=== PATIENT | female | born 1975 | race African-American/Black ===

== ENCOUNTER 2016-06-10 10:02 | Inpatient (IN) | payer MEDICARE, OTHER ==
[2016-06-10] VITALS (11 sets, daily range): BP systolic 112–191; BP diastolic 61–139
[~2016-06-10] VITALS: Ht 172.7 cm; Wt 65.8 kg
[~2016-06-10 10:02] MED LIST: ACYCLOVIR400 MG PO; BACTRIM DS TAB1 EAC1 ORAL; BACTRIM-DS1 EA PO; CEPHALEXIN500 MG ORAL; CLEOCIN150 MG PO; CORTISPORIN-TC10 M1 OT; HYDROCODON-ACE1 EAC4 ORAL; IBUPROFEN600 MG PO; KEFLEX500 MG PO; NKM; NORCO 5-325 TA1 EACH PO; VICODIN 5-5001 EACH PO
[2016-06-10] MEDS ORDERED: Metoclopramide 10mg/2ml Inj IVP ONE (10:30)
[2016-06-10] MEDS ORDERED: LORazepam Inj 2mg/ml 1ml IV ONE ×2 (10:30→15:30)
[2016-06-10 10:40] LABS: APPEARANCE,URINE CLOUDY; KETONES,URINE 2+ (NEGATIVE); LEUKOCYTE ESTERASE ,URINE 3+ (NEGATIVE); NITRITE,URINE NEGATIVE (NEGATIVE); PH,URINE 5 (4.5-8.0); PROTEIN,URINE 3+ (NEGATIVE); UROBILINOGEN,URINE NORMAL MG/DL (0.0-1.0)
[2016-06-10] MEDS ORDERED: Morphine Sulfate 4mg/ml Inj IVP ONE (10:45)
[2016-06-10 11:02] LABS: BACTERIA,URINE FEW /HPF; SQUAMOUS EPITHELIAL CELL,UR MODERATE /LPF (NONE/OCC)
[2016-06-10] MEDS ORDERED: HYDROmorphone 2 MG, DiphenhydrAMINE 25 MG in NS 55 ML IVPB ONE (11:15)
[2016-06-10 11:16] LABS: ALANINE AMINOTRANSFERASE 63 U/L (3-33); ALBUMIN/GLOBULIN RATIO 0.6 (1.0-2.7); ANION GAP 33 (5-15); ASPARTATE AMINO TRANSFERASE 90 U/L (5-40); CALCIUM 8.5 mg/dL (8.6-10.2); CARBON DIOXIDE 14 mEQ/L (20-30); CHLORIDE 90 mEQ/L (98-107); CREATININE 0.8 mg/dL (0.5-0.9); GLOMERULAR FILTRATION RATE > 60 mL/min (>60); HEMOLYSIS 7; POTASSIUM 4.3 mEQ/L (3.4-4.9); SODIUM 137 mEQ/L (135-145); TOTAL PROTEIN 8.2 g/dL (6.6-8.7)
[2016-06-10 11:18] LABS: LIPASE 304 U/L (< 60)
[2016-06-10 11:21] LABS: MEAN CORPUSCULAR HEMOGLOBIN 37.6 PG (27.0-31.0); MEAN CORPUSCULAR HGB CONC 31.9 G/DL (32.0-36.0); MEAN CORPUSCULAR VOLUME 118 FL (80-99); MEAN PLATELET VOLUME 5.8 FL (6.5-10.1); PLATELET COUNT 232 K/UL (150-450); RED BLOOD COUNT 2.75 M/UL (4.20-5.40); RED CELL DISTRIBUTION WIDTH 19.7 % (11.6-14.8); WHITE BLOOD COUNT 6.3 K/UL (4.8-10.8)
[2016-06-10] MEDS ORDERED: DiphenhydrAMINE 50mg/ml Inj ONE (11:22)
[2016-06-10 12:09] LABS: REFLEX LACTIC ACID YES OR NO YES
[2016-06-10 12:27] LABS: BAND NEUTROPHILS % (MANUAL) 0 % (0-8); BASOPHILS % (MANUAL) 0 % (0-2); EOSINOPHILS % (MANUAL) 0 % (0-3); LYMPHOCYTES % (MANUAL) 3 % (20-45); NEUTROPHILS % (MANUAL) 96 % (45-75); PLATELET ESTIMATE ADEQUATE; PLATELET MORPHOLOGY NORMAL; TOTAL CELLS COUNTED 100
[2016-06-10] MEDS ORDERED: Piperacillin/Tazobactam 3.375 GM in NS 110 ML IVPB ONE (13:00)
[2016-06-10] MEDS ORDERED: Miralax 17gm pkt ORAL PRN (13:45)
[2016-06-10] MEDS ORDERED: DuoNeb 0.5-3(2.5)mg/3ml neb HHN PRN (13:45)
[2016-06-10] MEDS ORDERED: Zosyn 3.375gm inj ONE (13:47)
--- NOTE | 2016-06-10 13:48 | Diagnostic Imaging Report ---
Clinical Indication: Abdominal pain. History of gastric sleeve surgery Technique: Patient given oral contrast. IV administration nonionic contrast. Venous phase spiral acquisition obtained through the abdomen and pelvis. Multiplanar reconstructions were generated. Total dose length product 1003 mGycm. CTDIvol(s) 18 mGy Comparison: None Findings: There is evidence of prior gastric surgery, with a gastrojejunostomy which appears to be patent. Contrast refluxes into the afferent limb. Small bowel loops are nondilated and there is no wall thickening. Contrast traverses the entirety of the small bowel and reaches the ascending colon. The appendix is normal. Is no evidence of diverticulosis or diverticulitis. No free or loculated intraperitoneal air or fluid is evident. The liver is diffusely hypoattenuating, consistent with fatty change. The liver is also mildly enlarged. No focal abnormalities. Gallbladder, bile ducts, pancreas, spleen, adrenals, kidneys are unremarkable. There is a 3.7 cm right ovarian cyst. No pelvic adenopathy. The included lung bases are clear. The bones are unremarkable except for L5-S1 disc degeneration. Impression: No acute abnormality demonstrated. Evidence of prior gastric surgery. No unusual features Fatty liver, mildly enlarged 3.7 cm right ovarian cyst. Recommend further evaluation with pelvic and endovaginal ultrasound The CT scanner at [facility] is accredited by the [employer] and the scans are performed using protocols designed to limit radiation exposure to as low as reasonably achievable to attain images of sufficient resolution adequate for diagnostic evaluation.
[2016-06-10] MEDS ORDERED: Nitroglycerin Subl 0.4mg tab (Bottle Of 25) SL PRN (14:00)
--- NOTE | 2016-06-10 14:05 | Emergency Room Report ---
History of Present Illness General Chief Complaint: Abdominal Pain Source: Patient Present Illness HPI Patient presents with complaints of increased vomiting abdominal pain Patient reports that she had a gastric sleeve in the past And was concern about malfunction Given her multiple vomiting episodes Denies any chest pain however she feels very weak and ill Patient reports general weakness Denies any neck pain or photophobia Denies any loss of control of bowel or urination Abdominal pain is 8/10 sharp fairly diffuse Allergies: Coded Allergies: No Known Allergies (Unverified , 03/24/12) UNABLE TO ASSESS (Unverified , 05/22/14) Patient History Past Medical History: see triage record Pertinent Family History: none Now: No Reviewed Nursing Documentation: PMH: Agreed, PSxH: Agreed Nursing Documentation-PMH Past Medical History: No Stated History Hx Neurological Problems: Yes - hidradenitis Review of Systems All Other Systems: negative except mentioned in HPI Physical Exam Vital Signs Date Time Temp Pulse Resp B/P Pulse Ox O2 Delivery O2 Flow Rate FiO2 06/10/16 09:55 97.3 130 18 140/80 99 Room Air 06/10/16 11:12 2.0 Sp02 EP Interpretation: reviewed, normal General Appearance: moderate distress - Appears anxious and uncomfortable Head: normocephalic, atraumatic Eyes: bilateral eye EOMI, bilateral eye PERRL ENT: hearing grossly normal, normal pharynx, TMs + canals normal, uvula midline Neck: full range of motion, supple, no meningismus, no bony tend Respiratory: lungs clear, normal breath sounds, no rhonchi, no respiratory distress, no retraction, no accessory muscle use Cardiovascular #1: no edema, no gallop, no JVD, no murmur, tachycardia Gastrointestinal: normal bowel sounds, soft, no mass, no organomegaly, non- distended, no guarding, no hernia, no pulsatile mass, no rebound, tenderness - Diffusely on palpation Genitourinary: no CVA tenderness Musculoskeletal: other - Patient complains of subjective weakness in her lower extremity, however bending her legs and moving without focal deficit Neurologic: oriented x3, responsive, purchasing specialist III-XII nml as tested, sensory intact Psychiatric: mood/affect normal Skin: warm/dry, palpation normal, other - poor skin turgor Lymphatic: normal inspection, no adenopathy Procedures Critical Care Time Critical Care Time 40 minutes, multiple reevaluation, critical presentation, not including procedural time Medical Decision Making Diagnostic Impression: Primary Impression: Sepsis Additional Impressions: UTI (urinary tract infection) Acidosis Severe sepsis ER Course Patient is a fairly complex patient with multiple differential to consideration including but not limited to cardiac cardiopulmonary and vascular emergencies Given the patient's tachycardia and lactic acid, given the concern of infectious pathology patient meets criteria for severe sepsis patient had IV bolus per protocol along with IV antibiotics initiated There was some concern regarding complaints of lower extremity weakness Therefore MRI of L-spine and T-spine Which did not show any obvious acute disease Patient's acidosis is somewhat concerning, not quite clear the etiology, patient 's CT of abdomen was negative, glucose is not significantly elevated Patient is otherwise tachycardic Patient has no meningismus, and no meningismal findings, LP was performed Patient has done better with acute intervention The abdomen pelvis did not show any acute disease Labs Test 06/10/16 10:10 06/10/16 10:50 06/10/16 11:30 Urine Color Yellow Urine Appearance Cloudy Urine pH 5 (4.5-8.0) Urine Specific [place] 1.030 (1.005-1.035) Urine Protein 3+ (NEGATIVE) Urine Glucose (UA) Negative (NEGATIVE) Urine Ketones 2+ (NEGATIVE) Urine Occult Blood 5+ (NEGATIVE) Urine Nitrite Negative (NEGATIVE) Urine Bilirubin Negative (NEGATIVE) Urine Urobilinogen Normal MG/DL (0.0-1.0) Urine Leukocyte Esterase 3+ (NEGATIVE) Urine RBC 5-10 /HPF (0 - 2) Urine WBC 10-15 /HPF (0 - 2) Urine Squamous Epithelial Cells Moderate /LPF (NONE/OCC) Urine Bacteria Few /HPF (NONE) Urine Opiates Screen Negative (NEGATIVE) Urine Barbiturates Screen Negative (NEGATIVE) Phencyclidine (PCP) Screen Negative (NEGATIVE) Urine Amphetamines Screen Negative (NEGATIVE) Urine Benzodiazepines Screen Negative (NEGATIVE) Urine Cocaine Screen Negative (NEGATIVE) Urine Marijuana (THC) Screen Negative (NEGATIVE) White Blood Count 6.3 K/UL (4.8-10.8) Red Blood Count 2.75 M/UL (4.20-5.40) Hemoglobin 10.3 G/DL (12.0-16.0) Hematocrit 32.3 % (37.0-47.0) Mean Corpuscular Volume 118 FL (80-99) Mean Corpuscular Hemoglobin 37.6 PG (27.0-31.0) Mean Corpuscular Hemoglobin Concent 31.9 G/DL (32.0-36.0) Red Cell Distribution Width 19.7 % (11.6-14.8) Platelet Count 232 K/UL (150-450) Mean Platelet Volume 5.8 FL (6.5-10.1) Neutrophils (%) (Auto) % (45.0-75.0) Lymphocytes (%) (Auto) % (20.0-45.0) Monocytes (%) (Auto) % (1.0-10.0) Eosinophils (%) (Auto) % (0.0-3.0) Basophils (%) (Auto) % (0.0-2.0) Differential Total Cells Counted 100 Neutrophils % (Manual) 96 % (45-75) Lymphocytes % (Manual) 3 % (20-45) Monocytes % (Manual) 1 % (1-10) Eosinophils % (Manual) 0 % (0-3) Basophils % (Manual) 0 % (0-2) Band Neutrophils 0 % (0-8) Platelet Estimate Adequate Platelet Morphology Normal Red Blood Cell Morphology Normal Sodium Level 137 mEQ/L (135-145) Potassium Level 4.3 mEQ/L (3.4-4.9) Chloride Level 90 mEQ/L (98-107) Carbon Dioxide Level 14 mEQ/L (20-30) Anion Gap 33 (5-15) Blood Urea Nitrogen 11 mg/dL (7-23) Creatinine 0.8 mg/dL (0.5-0.9) Estimat Glomerular Filtration Rate > 60 mL/min (>60) Glucose Level 116 mg/dL (74-106) Calcium Level 8.5 mg/dL (8.6-10.2) Total Bilirubin 0.7 mg/dL (0.0-1.2) Aspartate Amino Transf (AST/SGOT) 90 U/L (5-40) Alanine Aminotransferase (ALT/SGPT) 63 U/L (3-33) Alkaline Phosphatase 110 U/L (35-104) Total Protein 8.2 g/dL (6.6-8.7) Albumin 3.2 g/dL (3.5-5.2) Globulin 5.0 g/dL Albumin/Globulin Ratio 0.6 (1.0-2.7) Lipase 304 U/L (< 60) Human Chorionic Gonadotropin, Quant < 1 mIU/mL Lactic Acid Level 13.20 mmol/L (0.66-2.22) Serum Alcohol 31 mg/dL EKG Diagnostic Results Rate: tachycardiac Rhythm: other ST Segments: other - nonspecific ST and TWAVE CHANGES Rhythm Strip Diag. Results EP Interpretation: yes Chest X-Ray Diagnostic Results EP Interpretation: Yes Findings: no consolidation, no effusion, no pneumothorax Number of Views: 1 CT/MRI/US Diagnostic Results CT/MRI/US Diagnostic Results : Impression CT abdomen pelvis:Refer to note for full specifics no acute disease MRI T, L-spine: no acute disease Last Vital Signs Date Time Temp Pulse Resp B/P Pulse Ox O2 Delivery O2 Flow Rate FiO2 06/10/16 12:34 97.3 06/10/16 11:12 146 28 187/80 100 Nasal Cannula 2.0 Status: improved Disposition: ADMITTED INPATIENT Condition: Serious Referrals: NOT CHOSEN IPA/,REFERRING (PCP) MARTINA CREWS D.O. Jun 10, 2016 14:05
[2016-06-10] MEDS ORDERED: Midazolam 2mg/2ml Inj IVP ONE (15:00)
--- NOTE | 2016-06-10 15:24 | Diagnostic Imaging Report ---
Indication: DYSPNEA Technique: One view of the chest Comparison: none Findings: Lungs and pleural spaces are clear. Heart size is normal. Impression: No acute process
--- NOTE | 2016-06-10 15:32 | Infectious Diseases Prog Note ---
Assessment/Plan Problems: (1) Sepsis Assessment & Plan: continue wide spectrum antibiotics, follow culture (2) UTI (urinary tract infection) Assessment & Plan: on cefepime, await culture (3) Ovarian cyst Assessment & Plan: recommend transvaginal US and follow up with [facility] (4) Acute alcohol intoxication Assessment & Plan: needs counsling and rehabilitation, monitor in ICU, watch out for alcohol withdrawal. (5) Acidosis Assessment & Plan: due to the above, continue hydration, keep in ICU Subjective Allergies: Coded Allergies: No Known Allergies (Unverified , 03/24/12) UNABLE TO ASSESS (Unverified , 05/22/14) Objective Vital Signs Last 24 Hour Vital Signs Date Time Temp Pulse Resp B/P Pulse Ox O2 Delivery O2 Flow Rate FiO2 06/10/16 15:20 100.0 134 21 140/102 100 Room Air 2.0 06/10/16 14:50 100.0 134 21 140/102 100 Room Air 06/10/16 12:34 97.3 06/10/16 11:13 97.3 06/10/16 11:12 97.3 146 28 187/80 100 Nasal Cannula 2.0 06/10/16 10:36 97.3 138 24 191/124 100 Room Air 06/10/16 09:55 97.3 130 18 140/80 99 Room Air Height (Feet): 5 Height (Inches): 8.00 Weight (Pounds): 145 Laboratory Tests Test 06/10/16 10:10 06/10/16 10:50 06/10/16 11:30 06/10/16 14:15 Urine Color Yellow Urine Appearance Cloudy Urine pH 5 (4.5-8.0) Urine Specific [place] 1.030 (1.005-1.035) Urine Protein 3+ (NEGATIVE) H Urine Glucose (UA) Negative (NEGATIVE) Urine Ketones 2+ (NEGATIVE) H Urine Occult Blood 5+ (NEGATIVE) H Urine Nitrite Negative (NEGATIVE) Urine Bilirubin Negative (NEGATIVE) Urine Urobilinogen Normal MG/DL (0.0-1.0) Urine Leukocyte Esterase 3+ (NEGATIVE) H Urine RBC 5-10 /HPF (0 - 2) H Urine WBC 10-15 /HPF (0 - 2) H Urine Squamous Epithelial Cells Moderate /LPF (NONE/OCC) H Urine Bacteria Few /HPF (NONE) Urine Opiates Screen Negative (NEGATIVE) Urine Barbiturates Screen Negative (NEGATIVE) Phencyclidine (PCP) Screen Negative (NEGATIVE) Urine Amphetamines Screen Negative (NEGATIVE) Urine Benzodiazepines Screen Negative (NEGATIVE) Urine Cocaine Screen Negative (NEGATIVE) Urine Marijuana (THC) Screen Negative (NEGATIVE) White Blood Count 6.3 K/UL (4.8-10.8) Red Blood Count 2.75 M/UL (4.20-5.40) L Hemoglobin 10.3 G/DL (12.0-16.0) L Hematocrit 32.3 % (37.0-47.0) L Mean Corpuscular Volume 118 FL (80-99) H Mean Corpuscular Hemoglobin 37.6 PG (27.0-31.0) H Mean Corpuscular Hemoglobin Concent 31.9 G/DL (32.0-36.0) L Red Cell Distribution Width 19.7 % (11.6-14.8) H Platelet Count 232 K/UL (150-450) Mean Platelet Volume 5.8 FL (6.5-10.1) L Neutrophils (%) (Auto) % (45.0-75.0) Lymphocytes (%) (Auto) % (20.0-45.0) Monocytes (%) (Auto) % (1.0-10.0) Eosinophils (%) (Auto) % (0.0-3.0) Basophils (%) (Auto) % (0.0-2.0) Differential Total Cells Counted 100 Neutrophils % (Manual) 96 % (45-75) H Lymphocytes % (Manual) 3 % (20-45) L Monocytes % (Manual) 1 % (1-10) Eosinophils % (Manual) 0 % (0-3) Basophils % (Manual) 0 % (0-2) Band Neutrophils 0 % (0-8) Platelet Estimate Adequate Platelet Morphology Normal Red Blood Cell Morphology Normal Sodium Level 137 mEQ/L (135-145) Potassium Level 4.3 mEQ/L (3.4-4.9) Chloride Level 90 mEQ/L (98-107) L Carbon Dioxide Level 14 mEQ/L (20-30) L Anion Gap 33 (5-15) H Blood Urea Nitrogen 11 mg/dL (7-23) Creatinine 0.8 mg/dL (0.5-0.9) Estimat Glomerular Filtration Rate > 60 mL/min (>60) Glucose Level 116 mg/dL (74-106) H Calcium Level 8.5 mg/dL (8.6-10.2) L Total Bilirubin 0.7 mg/dL (0.0-1.2) Aspartate Amino Transf (AST/SGOT) 90 U/L (5-40) H Alanine Aminotransferase (ALT/SGPT) 63 U/L (3-33) H Alkaline Phosphatase 110 U/L (35-104) H Total Protein 8.2 g/dL (6.6-8.7) Albumin 3.2 g/dL (3.5-5.2) L Globulin 5.0 g/dL Albumin/Globulin Ratio 0.6 (1.0-2.7) L Lipase 304 U/L (< 60) H Human Chorionic Gonadotropin, Quant < 1 mIU/mL Lactic Acid Level 13.20 mmol/L (0.66-2.22) H 9.80 mmol/L (0.66-2.22) H Serum Alcohol 31 mg/dL Current Medications Medications (Trade) Dose Ordered Sig/Payam Route PRN Reason Start Time Stop Time Status Last Admin Dose Admin Acetaminophen (Tylenol) 650 mg Q4H PRN ORAL T>100.5 06/10/16 13:45 07/10/16 13:44 Albuterol/ Ipratropium 3 ml 3 ml Q4H PRN HHN Shortness of Breath 06/10/16 13:45 06/15/16 13:44 Cefepime HCl/ Dextrose (Maxipime/D5W) 110 ml @ 220 mls/hr Q12HR@0500,1700 IV 06/10/16 17:00 06/17/16 16:59 Dextrose/Sodium Chloride (D5 0.45% NS) 1,000 ml @ 100 mls/hr Q10H IV 06/10/16 14:30 07/10/16 14:29 Heparin Sodium (Porcine) (Heparin 5000 units/ml) 5,000 units EVERY 12 HOURS SUBQ 06/10/16 21:00 07/10/16 20:59 Lorazepam (Ativan 2mg/ml 1ml) 1 mg ONCE ONCE IV 06/10/16 15:30 06/10/16 15:31 Morphine Sulfate (Morphine Sulfate) 2 mg Q4H PRN IVP PAIN 4-10 06/10/16 13:45 06/17/16 13:44 Nitroglycerin 0.4 mg 0.4 mg Q5MIN X 3 DOSES PRN SL Prn Chest Pain 06/10/16 14:00 07/10/16 13:59 Ondansetron HCl (Zofran) 4 mg Q6H PRN IVP Nausea & Vomiting 06/10/16 13:45 07/10/16 13:44 Polyethylene Glycol (Miralax) 17 gm DAILYPRN PRN ORAL Constipation 06/10/16 13:45 07/10/16 13:44 Temazepam (Restoril) 15 mg HSPRN PRN ORAL Insomnia 06/10/16 21:00 06/17/16 20:59 Vancomycin HCl 1 ea 1 ea DAILY PRN MISC . 06/10/16 13:45 07/10/16 13:44 Vancomycin HCl/ Dextrose (Vancomycin/D5W) 275 ml @ 183.333 mls/hr Q12HR@0400,1600 IVPB 06/10/16 16:00 06/15/16 15:59 Brandan Rubin M.D. Jun 10, 2016 15:32
[2016-06-10] MEDS: D5 1/2NS 1,000 ML IV SCH (16:48)
[2016-06-10] MEDS: Morphine Sulfate 2mg/ml Inj IVP PRN ×2 (16:51→21:09)
[2016-06-10] MEDS: Vancomycin 1250mg/D5W 275ml IVPB SCH ×2 (17:34)
[2016-06-10] MEDS: Cefepime HCl 2 GM in D5W 110 ML IV SCH (18:04)
[2016-06-10] MEDS: Heparin 5000 units/ml inj SUBQ SCH (21:10)
[2016-06-10] MEDS: DiphenhydrAMINE 50mg/ml Inj IVP PRN (21:41)
[2016-06-10 21:44] LABS: REFLEX LACTIC ACID YES OR NO YES
--- NOTE | 2016-06-10 22:29 | Consultation ---
DATE OF CONSULTATION: INFECTIOUS DISEASE CONSULTATION CONSULTING PHYSICIAN: Brandan Rubin M.D. REQUESTING PHYSICIAN: Franky Olvera D.O. REASON FOR CONSULTATION: Sepsis and UTI. Recommendations for antibiotic therapy. HISTORY OF PRESENT ILLNESS: This is a 40-year-old female with no significant past medical history, who was brought in to [facility] emergency room for evaluation. The patient was tremoring in the emergency room and shivering. Her alcohol level was found to be elevated. The patient was found to have a urinary tract infection and she was complaining of abdominal pain. CT scan of the abdomen did not show any acute pathology, but right ovarian cyst. The patient was started on antibiotics empiric treatment in the emergency room. I was consulted by the primary provider for antibiotics recommendation and further management. PAST MEDICAL HISTORY: Significant for hidradenitis. PAST SURGICAL HISTORY: Negative. MEDICATIONS: She received vancomycin and cefepime in the emergency room. ALLERGIES: No known drug allergy in the record. FAMILY HISTORY: Unable to obtain. SOCIAL HISTORY: The patient was drinking alcohol, unclear how much and unclear her home situation. REVIEW OF SYSTEMS: The patient is a poor historian, probably withdrawing from alcohol and cannot provide good history. PHYSICAL EXAMINATION: VITAL SIGNS: Temperature 100 degrees, pulse 134, respirations 21, blood pressure 140/102, and saturating 100% on room air. GENERAL: A middle-aged female, lying in bed, tremoring, with poor hygiene, and withdrawing from alcohol. HEENT: Normocephalic and atraumatic. Pupils are reactive to light. Dry oral mucosa. NECK: Supple. No lymphadenopathy. CARDIOVASCULAR: She is tachycardic. S1 and S2 positive. No gallop. LUNGS: She had diminished breathing sound on the bases. No wheezing or rhonchi. ABDOMEN: Soft. Mildly tender. Not distended. Positive bowel sounds. No hepatosplenomegaly. No ascites. EXTREMITIES: No edema. No cyanosis. LABORATORY DATA: CBC showed white count of 6.3, hemoglobin 10.3, and platelet count 232,000. BUN of 11 and creatinine of 0.8. Urinalysis showed +3 leukocyte esterase and WBC 10 to 15 with few bacteria. Toxicology screening showed serum alcohol level of 31. IMAGING: Chest x-ray showed no acute process. CT scan of the abdomen and pelvis showed no acute abnormalities, evidence of prior gastric surgery, fatty liver, and 3.7 cm right ovarian cyst. ASSESSMENT AND PLAN: 1. Sepsis, suspect due to urinary tract infection. Continue wide-spectrum antibiotics therapy and monitor culture results. 2. Urinary tract infection. The patient is already on cefepime. Await urine culture. 3. Ovarian cysts. Recommended transvaginal ultrasound and follow up with [facility]. 4. Acute alcohol intoxication. Continue to monitor in intensive care unit. Consider benzos to prevent withdrawal and watch out for alcohol withdrawal and seizure. The patient needs constant rehabilitation. 5. Acidosis due to the above. Continue hydration. Monitor in intensive care unit. 6. Hydradenitis. on wide spectrum antibiotics therapy, recommend surgical consult for possible I&D. Brandan Rubin M.D. DR: STACIA JOB#: [id number] CC: RONDA
[2016-06-11] VITALS (18 sets, daily range): BP systolic 141–168; BP diastolic 81–99
[2016-06-11] MEDS ORDERED: Vancomycin 1 GM in D5W 275 ML IV SCH (00:30)
[2016-06-11] MEDS: Morphine Sulfate 2mg/ml Inj IVP PRN ×6 (01:18→23:06)
[2016-06-11] MEDS: DiphenhydrAMINE 50mg/ml Inj IVP PRN ×4 (03:50→23:04)
[2016-06-11] MEDS: Vancomycin 1250mg/D5W 275ml IVPB SCH ×2 (03:51)
[2016-06-11] MEDS: D5 1/2NS 1,000 ML IV SCH (03:52)
[2016-06-11] MEDS: Cefepime HCl 2 GM in D5W 110 ML IV SCH ×2 (05:25→18:02)
[2016-06-11 05:41] LABS: MEAN CORPUSCULAR HEMOGLOBIN 38.9 PG (27.0-31.0); MEAN CORPUSCULAR VOLUME 115 FL (80-99); PLATELET COUNT 156 K/UL (150-450); RED BLOOD COUNT 2.06 M/UL (4.20-5.40); RED CELL DISTRIBUTION WIDTH 18.5 % (11.6-14.8); WHITE BLOOD COUNT 3.7 K/UL (4.8-10.8)
[2016-06-11 06:00] LABS: ALANINE AMINOTRANSFERASE 41 U/L (3-33); ALBUMIN/GLOBULIN RATIO 0.7 (1.0-2.7); ANION GAP 16 (5-15); ASPARTATE AMINO TRANSFERASE 51 U/L (5-40); CALCIUM 7.9 mg/dL (8.6-10.2); CARBON DIOXIDE 24 mEQ/L (20-30); CHLORIDE 93 mEQ/L (98-107); CREATININE 0.8 mg/dL (0.5-0.9); GLOMERULAR FILTRATION RATE > 60 mL/min (>60); HEMOLYSIS 5; POTASSIUM 3.5 mEQ/L (3.4-4.9); SODIUM 133 mEQ/L (135-145); TOTAL PROTEIN 6.4 g/dL (6.6-8.7)
[2016-06-11 06:01] LABS: INR 1.1 (0.9-1.1); PROTHROMBIN TIME 11.3 SEC (9.30-11.50)
[2016-06-11 06:10] LABS: HEMOLYSIS 7; IRON 195 ug/dL (37-145); TOTAL IRON BINDING CAPACITY 211 ug/dL (250-400)
[2016-06-11 06:17] LABS: FERRITIN 756 ng/mL (13-150)
[2016-06-11 06:59] LABS: BILIRUBIN,DIRECT 0.3 mg/dL (0.1-0.3)
[2016-06-11] MEDS: Heparin 5000 units/ml inj SUBQ SCH ×2 (08:37→21:24)
[2016-06-11] MEDS ORDERED: chlordiazePOXIDE 25mg Cap ORAL PRN (09:45)
--- NOTE | 2016-06-11 09:49 | Pulmonolgy Critical Care Note ---
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 Discussed with: nurses, consultants Critical Care - Objective Last 24 Hour Vital Signs Date Time Temp Pulse Resp B/P Pulse Ox O2 Delivery O2 Flow Rate FiO2 06/11/16 08:00 99.1 107 18 156/86 99 Room Air 06/11/16 07:00 108 20 142/86 100 Room Air 06/11/16 06:00 114 20 155/82 100 Room Air 06/11/16 05:00 112 19 160/82 100 Room Air 06/11/16 04:00 115 06/11/16 04:00 98.8 115 20 168/85 100 Room Air 06/11/16 03:00 116 20 151/84 100 Room Air 06/11/16 02:00 116 21 155/82 100 Room Air 06/11/16 01:00 119 21 165/82 100 Room Air 06/11/16 00:00 136 06/11/16 00:00 99.0 122 21 149/81 100 Room Air 06/10/16 23:00 125 21 112/70 100 Room Air 06/10/16 22:00 130 21 114/61 100 Room Air 06/10/16 21:00 129 21 124/83 100 Room Air 06/10/16 20:00 98.9 136 21 144/77 100 Room Air 06/10/16 20:00 136 06/10/16 19:09 136 20 Room Air 21 06/10/16 18:00 135 21 151/84 100 Room Air 06/10/16 17:33 98.1 06/10/16 17:00 133 15 165/73 96 Room Air 06/10/16 16:43 98.1 143 14 158/139 94 06/10/16 16:00 142 06/10/16 15:30 132 20 Room Air 21 06/10/16 15:20 100.0 134 21 140/102 100 Room Air 2.0 06/10/16 14:50 100.0 134 21 140/102 100 Room Air 06/10/16 13:30 98.0 148 26 156/80 100 Nasal Cannula 2.0 06/10/16 12:34 97.3 06/10/16 11:13 97.3 06/10/16 11:12 97.3 146 28 187/80 100 Nasal Cannula 2.0 06/10/16 10:36 97.3 138 24 191/124 100 Room Air 06/10/16 09:55 97.3 130 18 140/80 99 Room Air Status: awake HEENT: atraumatic Neck: full ROM Lungs: clear Heart: HR/BP stable, HR/BP unstable Abdomen: soft, active bowel sounds Extremities: no C/C/E, edema Accucheck: 127 Critical Care - Subjective ROS Limited/Unobtainable: No ICU Day: 2 Interval Events: 40 yea old female with PMHx of ETOH abuse, gastric bypass surgery present to ER with complaints of increased vomiting abdominal pain. She was tachycardiac in Er and was diagnosed to have septic shock and admitted to Icu. Currently pts vital signs are much better, but she had multiple unrelated complains, including not being able to walk, pain in her thigh, skin irritation around lower abdomen. FI02: 21 Sputum Amount: None Fluids: d5 1/2 NS 100 cc/hour I&O: Intake and Output 06/10/16 06/11/16 19:00 07:00 Intake Total 3200 ml 1420 ml Output Total 2 ml 705 ml Balance 3198 ml 715 ml Intake IV Total 1420 ml Other 3200 ml Output Urine Total 2 ml 5 ml Stool Total 700 ml # Voids 2 CXR: cxr negative, abdomen CT negative as well. Labs: Laboratory Tests Test 06/10/16 10:10 06/10/16 10:50 06/10/16 11:30 06/10/16 14:15 Urine Color Yellow Urine Appearance Cloudy Urine pH 5 (4.5-8.0) Urine Specific Hawks 1.030 (1.005-1.035) Urine Protein 3+ (NEGATIVE) H Urine Glucose (UA) Negative (NEGATIVE) Urine Ketones 2+ (NEGATIVE) H Urine Occult Blood 5+ (NEGATIVE) H Urine Nitrite Negative (NEGATIVE) Urine Bilirubin Negative (NEGATIVE) Urine Urobilinogen Normal MG/DL (0.0-1.0) Urine Leukocyte Esterase 3+ (NEGATIVE) H Urine RBC 5-10 /HPF (0 - 2) H Urine WBC 10-15 /HPF (0 - 2) H Urine Squamous Epithelial Cells Moderate /LPF (NONE/OCC) H Urine Bacteria Few /HPF (NONE) Urine Opiates Screen Negative (NEGATIVE) Urine Barbiturates Screen Negative (NEGATIVE) Phencyclidine (PCP) Screen Negative (NEGATIVE) Urine Amphetamines Screen Negative (NEGATIVE) Urine Benzodiazepines Screen Negative (NEGATIVE) Urine Cocaine Screen Negative (NEGATIVE) Urine Marijuana (THC) Screen Negative (NEGATIVE) White Blood Count 6.3 K/UL (4.8-10.8) Red Blood Count 2.75 M/UL (4.20-5.40) L Hemoglobin 10.3 G/DL (12.0-16.0) L Hematocrit 32.3 % (37.0-47.0) L Mean Corpuscular Volume 118 FL (80-99) H Mean Corpuscular Hemoglobin 37.6 PG (27.0-31.0) H Mean Corpuscular Hemoglobin Concent 31.9 G/DL (32.0-36.0) L Red Cell Distribution Width 19.7 % (11.6-14.8) H Platelet Count 232 K/UL (150-450) Mean Platelet Volume 5.8 FL (6.5-10.1) L Neutrophils (%) (Auto) % (45.0-75.0) Lymphocytes (%) (Auto) % (20.0-45.0) Monocytes (%) (Auto) % (1.0-10.0) Eosinophils (%) (Auto) % (0.0-3.0) Basophils (%) (Auto) % (0.0-2.0) Differential Total Cells Counted 100 Neutrophils % (Manual) 96 % (45-75) H Lymphocytes % (Manual) 3 % (20-45) L Monocytes % (Manual) 1 % (1-10) Eosinophils % (Manual) 0 % (0-3) Basophils % (Manual) 0 % (0-2) Band Neutrophils 0 % (0-8) Platelet Estimate Adequate Platelet Morphology Normal Red Blood Cell Morphology Normal Sodium Level 137 mEQ/L (135-145) Potassium Level 4.3 mEQ/L (3.4-4.9) Chloride Level 90 mEQ/L (98-107) L Carbon Dioxide Level 14 mEQ/L (20-30) L Anion Gap 33 (5-15) H Blood Urea Nitrogen 11 mg/dL (7-23) Creatinine 0.8 mg/dL (0.5-0.9) Estimat Glomerular Filtration Rate > 60 mL/min (>60) Glucose Level 116 mg/dL (74-106) H Calcium Level 8.5 mg/dL (8.6-10.2) L Total Bilirubin 0.7 mg/dL (0.0-1.2) Aspartate Amino Transf (AST/SGOT) 90 U/L (5-40) H Alanine Aminotransferase (ALT/SGPT) 63 U/L (3-33) H Alkaline Phosphatase 110 U/L (35-104) H Total Protein 8.2 g/dL (6.6-8.7) Albumin 3.2 g/dL (3.5-5.2) L Globulin 5.0 g/dL Albumin/Globulin Ratio 0.6 (1.0-2.7) L Lipase 304 U/L (< 60) H Human Chorionic Gonadotropin, Quant < 1 mIU/mL Lactic Acid Level 13.20 mmol/L (0.66-2.22) H 9.80 mmol/L (0.66-2.22) H Serum Alcohol 31 mg/dL Test 06/10/16 21:05 06/11/16 04:50 Lactic Acid Level 4.60 mmol/L (0.66-2.22) H 1.90 mmol/L (0.66-2.22) White Blood Count 3.7 K/UL (4.8-10.8) L Red Blood Count 2.06 M/UL (4.20-5.40) L Hemoglobin 8.0 G/DL (12.0-16.0) L Hematocrit 23.6 % (37.0-47.0) L Mean Corpuscular Volume 115 FL (80-99) H Mean Corpuscular Hemoglobin 38.9 PG (27.0-31.0) H Mean Corpuscular Hemoglobin Concent 34.0 G/DL (32.0-36.0) Red Cell Distribution Width 18.5 % (11.6-14.8) H Platelet Count 156 K/UL (150-450) Mean Platelet Volume 6.0 FL (6.5-10.1) L Neutrophils (%) (Auto) % (45.0-75.0) Lymphocytes (%) (Auto) % (20.0-45.0) Monocytes (%) (Auto) % (1.0-10.0) Eosinophils (%) (Auto) % (0.0-3.0) Basophils (%) (Auto) % (0.0-2.0) Reticulocyte Count 0.2 % (0.0-2.0) Prothrombin Time 11.3 SEC (9.30-11.50) Prothromb Time International Ratio 1.1 (0.9-1.1) Activated Partial Thromboplast Time 28 SEC (23-33) Sodium Level 133 mEQ/L (135-145) L Potassium Level 3.5 mEQ/L (3.4-4.9) Chloride Level 93 mEQ/L (98-107) L Carbon Dioxide Level 24 mEQ/L (20-30) Anion Gap 16 (5-15) H Blood Urea Nitrogen 6 mg/dL (7-23) L Creatinine 0.8 mg/dL (0.5-0.9) Estimat Glomerular Filtration Rate > 60 mL/min (>60) Glucose Level 88 mg/dL (74-106) Calcium Level 7.9 mg/dL (8.6-10.2) L Iron Level 195 ug/dL (37-145) H Total Iron Binding Capacity 211 ug/dL (250-400) L Percent Iron Saturation 92 % (15-50) H Unsaturated Iron Binding < 16 ug/dL (112-346) L Ferritin 756 ng/mL (13-150) H Total Bilirubin 1.2 mg/dL (0.0-1.2) Direct Bilirubin 0.3 mg/dL (0.1-0.3) Aspartate Amino Transf (AST/SGOT) 51 U/L (5-40) H Alanine Aminotransferase (ALT/SGPT) 41 U/L (3-33) H Alkaline Phosphatase 81 U/L (35-104) Total Protein 6.4 g/dL (6.6-8.7) L Albumin 2.7 g/dL (3.5-5.2) L Globulin 3.7 g/dL Albumin/Globulin Ratio 0.7 (1.0-2.7) L Lipase 184 U/L (< 60) H Vitamin B12 Level 630 pg/mL (211-946) Folate Pending Thyroid Stimulating Hormone (TSH) 5.040 uIU/mL (0.300-4.500) Free Thyroxine 1.20 ng/dL (0.86-1.85) DAVID CLARKE Jun 11, 2016 09:49
--- NOTE | 2016-06-11 10:03 | Diagnostic Imaging Report ---
Indication: Abdominal pain Technique: Ultrasound of the abdomen. Comparison: CT abdomen and pelvis from earlier the same day Findings: Examination is limited by body habitus. The pancreas is obscured. There is increased echogenicity of the liver. Liver measures 18.2 cm. No focal liver lesions are identified. Visualized portions of the main portal vein and the hepatic veins are grossly unremarkable although incompletely evaluated. The gallbladder is unremarkable without evidence of stones. Gallbladder wall thickness is within normal limits. Sonographic Pettit's is negative. Common bile duct measures 3 mm. Bilateral kidneys demonstrate normal echogenicity. No focal renal lesions are seen. There is no hydronephrosis. No echogenic renal stones are identified. The spleen is normal in size and echogenicity. The visualized aorta is normal in caliber. Visualized portions of the inferior vena cava are unremarkable. Impression: No evidence of gallstones. Hepatomegaly with fatty infiltration. Pancreas obscured by overlying bowel gas.
--- NOTE | 2016-06-11 10:21 | Diagnostic Imaging Report ---
Indication: Shortness of breath Technique: XRAY CHEST 1 V Comparison: 06/10/16 Findings: Cardiomediastinal silhouette is stable. There is left midlung atelectasis. There is no consolidation or pleural effusion. Osseous structures are stable. Impression: Left midlung atelectasis.
--- NOTE | 2016-06-11 11:52 | Wound Nurse Progress Note ---
Wound RN Progress Note Wound Consult Spoke to assign JONO Pulido regarding follow up possibly with Dr. Cash and consult with attending MD for further orders regarding diagnosis of Hidradenitis. LENORE SEXTON Jun 11, 2016 11:52
[2016-06-11] MEDS ORDERED: Folic Acid 1 MG, Magnesium Sulfate 2,000 MG, Multivitamin - 12 Injection 10 ML in NS w/... IV SCH (12:00)
[2016-06-11] MEDS ORDERED: Thiamine 100mg in D5W 55ml IVPB SCH (12:00)
[2016-06-11] MEDS ORDERED: LORazepam Inj 2mg/ml 1ml IV ONE (15:15)
--- NOTE | 2016-06-11 15:16 | Neurology Progress Note ---
Interim History Interim History ROS Limited/Unobtainable: No Objective Physical Exam Last Vital Signs Date Time Temp Pulse Resp B/P Pulse Ox O2 Delivery O2 Flow Rate FiO2 06/11/16 14:00 108 16 156/98 100 Room Air 06/11/16 12:00 98.8 06/10/16 19:09 21 06/10/16 15:20 2.0 Laboratory Tests Test 06/10/16 21:05 06/11/16 04:50 Lactic Acid Level 4.60 mmol/L (0.66-2.22) H 1.90 mmol/L (0.66-2.22) White Blood Count 3.7 K/UL (4.8-10.8) L Red Blood Count 2.06 M/UL (4.20-5.40) L Hemoglobin 8.0 G/DL (12.0-16.0) L Hematocrit 23.6 % (37.0-47.0) L Mean Corpuscular Volume 115 FL (80-99) H Mean Corpuscular Hemoglobin 38.9 PG (27.0-31.0) H Mean Corpuscular Hemoglobin Concent 34.0 G/DL (32.0-36.0) Red Cell Distribution Width 18.5 % (11.6-14.8) H Platelet Count 156 K/UL (150-450) Mean Platelet Volume 6.0 FL (6.5-10.1) L Neutrophils (%) (Auto) % (45.0-75.0) Lymphocytes (%) (Auto) % (20.0-45.0) Monocytes (%) (Auto) % (1.0-10.0) Eosinophils (%) (Auto) % (0.0-3.0) Basophils (%) (Auto) % (0.0-2.0) Reticulocyte Count 0.2 % (0.0-2.0) Prothrombin Time 11.3 SEC (9.30-11.50) Prothromb Time International Ratio 1.1 (0.9-1.1) Activated Partial Thromboplast Time 28 SEC (23-33) Sodium Level 133 mEQ/L (135-145) L Potassium Level 3.5 mEQ/L (3.4-4.9) Chloride Level 93 mEQ/L (98-107) L Carbon Dioxide Level 24 mEQ/L (20-30) Anion Gap 16 (5-15) H Blood Urea Nitrogen 6 mg/dL (7-23) L Creatinine 0.8 mg/dL (0.5-0.9) Estimat Glomerular Filtration Rate > 60 mL/min (>60) Glucose Level 88 mg/dL (74-106) Calcium Level 7.9 mg/dL (8.6-10.2) L Iron Level 195 ug/dL (37-145) H Total Iron Binding Capacity 211 ug/dL (250-400) L Percent Iron Saturation 92 % (15-50) H Unsaturated Iron Binding < 16 ug/dL (112-346) L Ferritin 756 ng/mL (13-150) H Total Bilirubin 1.2 mg/dL (0.0-1.2) Direct Bilirubin 0.3 mg/dL (0.1-0.3) Aspartate Amino Transf (AST/SGOT) 51 U/L (5-40) H Alanine Aminotransferase (ALT/SGPT) 41 U/L (3-33) H Alkaline Phosphatase 81 U/L (35-104) Total Protein 6.4 g/dL (6.6-8.7) L Albumin 2.7 g/dL (3.5-5.2) L Globulin 3.7 g/dL Albumin/Globulin Ratio 0.7 (1.0-2.7) L Lipase 184 U/L (< 60) H Vitamin B12 Level 630 pg/mL (211-946) Folate Pending Thyroid Stimulating Hormone (TSH) 5.040 uIU/mL (0.300-4.500) Free Thyroxine 1.20 ng/dL (0.86-1.85) Impression/Recommendations Problems: (1) Ascending paraparesis,r/o spinal cotd compression r/o GBS (2) Hydradenitis (3) Severe anemia Status: unchanged Recommendations #[id number] DON DAWN Jun 11, 2016 15:16
[2016-06-11] MEDS ORDERED: Nitroglycerin Subl 0.4mg tab (Bottle Of 25) SL PRN (15:30)
--- NOTE | 2016-06-11 16:26 | Infectious Diseases Prog Note ---
Assessment/Plan Problems: (1) Sepsis Assessment & Plan: continue wide spectrum antibiotics, follow culture (2) UTI (urinary tract infection) Assessment & Plan: on cefepime, await culture (3) Ovarian cyst Assessment & Plan: recommend transvaginal US and follow up with [facility] (4) Acute alcohol intoxication Assessment & Plan: needs counsling and rehabilitation, monitor in ICU, watch out for alcohol withdrawal. (5) Acidosis Assessment & Plan: due to the above, continue hydration, keep in ICU (6) Hydradenitis Assessment & Plan: will add flagyl empiric coverage, recommend general surgery eval for possible I&D, D/W nurse and patient Subjective Constitutional: Denies: anorexia, chills, drenching sweats, fatigue, fever, no symptoms, other HEENT: Denies: congestion, coryza, dysphagia, hearing change, no symptoms, other, visual change Respiratory: Denies: dry cough, no symptoms, other, productive cough, shortness of breath Cardiovascular: Denies: chest pain, dyspnea on exertion, no symptoms, other, palpitations Gastrointestinal/Abdominal: Reports: bloating, other - abdominal pain Genitourinary: Reports: no symptoms Neurologic: Reports: no symptoms Skin: Reports: other - right hydraadinitis , ulcer Endocrine: Denies: feels cold, feels warm, no symptoms, other Musculoskeletal: Reports: pain Allergies: Coded Allergies: No Known Allergies (Unverified , 03/24/12) UNABLE TO ASSESS (Unverified , 05/22/14) Objective Vital Signs Last 24 Hour Vital Signs Date Time Temp Pulse Resp B/P Pulse Ox O2 Delivery O2 Flow Rate FiO2 06/11/16 14:00 108 16 156/98 100 Room Air 06/11/16 13:00 104 16 142/85 100 Room Air 06/11/16 12:00 98.8 106 16 141/90 100 Room Air 06/11/16 12:00 108 06/11/16 11:00 109 16 145/85 100 Room Air 06/11/16 10:00 105 16 158/99 100 Room Air 06/11/16 09:00 102 17 146/96 100 Room Air 06/11/16 08:00 99.1 107 18 156/86 99 Room Air 06/11/16 08:00 110 06/11/16 07:00 108 20 142/86 100 Room Air 06/11/16 06:00 114 20 155/82 100 Room Air 06/11/16 05:00 112 19 160/82 100 Room Air 06/11/16 04:00 115 06/11/16 04:00 98.8 115 20 168/85 100 Room Air 06/11/16 03:00 116 20 151/84 100 Room Air 06/11/16 02:00 116 21 155/82 100 Room Air 06/11/16 01:00 119 21 165/82 100 Room Air 06/11/16 00:00 136 06/11/16 00:00 99.0 122 21 149/81 100 Room Air 06/10/16 23:00 125 21 112/70 100 Room Air 06/10/16 22:00 130 21 114/61 100 Room Air 06/10/16 21:00 129 21 124/83 100 Room Air 06/10/16 20:00 98.9 136 21 144/77 100 Room Air 06/10/16 20:00 136 06/10/16 19:09 136 20 Room Air 21 06/10/16 18:00 135 21 151/84 100 Room Air 06/10/16 17:33 98.1 06/10/16 17:00 133 15 165/73 96 Room Air 06/10/16 16:43 98.1 143 14 158/139 94 Height (Feet): 5 Height (Inches): 8.00 Weight (Pounds): 145 General Appearance: WD/WN, no acute distress HEENT: normocephalic, atraumatic, anicteric, mucous membranes moist Respiratory/Chest: chest wall non-tender, lungs clear, normal breath sounds, no respiratory distress, no accessory muscle use Cardiovascular: normal peripheral pulses, normal rate, regular rhythm, no gallop/murmur Abdomen: normal bowel sounds, no organomegaly, non distended, no mass, distended, tender Skin: no rash, ulcers, other - right hydraadentitis Neurologic/Psychiatric: alert, oriented x 3 Laboratory Tests Test 06/10/16 21:05 06/11/16 04:50 Lactic Acid Level 4.60 mmol/L (0.66-2.22) H 1.90 mmol/L (0.66-2.22) White Blood Count 3.7 K/UL (4.8-10.8) L Red Blood Count 2.06 M/UL (4.20-5.40) L Hemoglobin 8.0 G/DL (12.0-16.0) L Hematocrit 23.6 % (37.0-47.0) L Mean Corpuscular Volume 115 FL (80-99) H Mean Corpuscular Hemoglobin 38.9 PG (27.0-31.0) H Mean Corpuscular Hemoglobin Concent 34.0 G/DL (32.0-36.0) Red Cell Distribution Width 18.5 % (11.6-14.8) H Platelet Count 156 K/UL (150-450) Mean Platelet Volume 6.0 FL (6.5-10.1) L Neutrophils (%) (Auto) % (45.0-75.0) Lymphocytes (%) (Auto) % (20.0-45.0) Monocytes (%) (Auto) % (1.0-10.0) Eosinophils (%) (Auto) % (0.0-3.0) Basophils (%) (Auto) % (0.0-2.0) Reticulocyte Count 0.2 % (0.0-2.0) Prothrombin Time 11.3 SEC (9.30-11.50) Prothromb Time International Ratio 1.1 (0.9-1.1) Activated Partial Thromboplast Time 28 SEC (23-33) Sodium Level 133 mEQ/L (135-145) L Potassium Level 3.5 mEQ/L (3.4-4.9) Chloride Level 93 mEQ/L (98-107) L Carbon Dioxide Level 24 mEQ/L (20-30) Anion Gap 16 (5-15) H Blood Urea Nitrogen 6 mg/dL (7-23) L Creatinine 0.8 mg/dL (0.5-0.9) Estimat Glomerular Filtration Rate > 60 mL/min (>60) Glucose Level 88 mg/dL (74-106) Calcium Level 7.9 mg/dL (8.6-10.2) L Iron Level 195 ug/dL (37-145) H Total Iron Binding Capacity 211 ug/dL (250-400) L Percent Iron Saturation 92 % (15-50) H Unsaturated Iron Binding < 16 ug/dL (112-346) L Ferritin 756 ng/mL (13-150) H Total Bilirubin 1.2 mg/dL (0.0-1.2) Direct Bilirubin 0.3 mg/dL (0.1-0.3) Aspartate Amino Transf (AST/SGOT) 51 U/L (5-40) H Alanine Aminotransferase (ALT/SGPT) 41 U/L (3-33) H Alkaline Phosphatase 81 U/L (35-104) Total Protein 6.4 g/dL (6.6-8.7) L Albumin 2.7 g/dL (3.5-5.2) L Globulin 3.7 g/dL Albumin/Globulin Ratio 0.7 (1.0-2.7) L Lipase 184 U/L (< 60) H Vitamin B12 Level 630 pg/mL (211-946) Folate Pending Thyroid Stimulating Hormone (TSH) 5.040 uIU/mL (0.300-4.500) Free Thyroxine 1.20 ng/dL (0.86-1.85) Current Medications Medications (Trade) Dose Ordered Sig/Payam Route PRN Reason Start Time Stop Time Status Last Admin Dose Admin Acetaminophen (Tylenol) 650 mg Q4H PRN ORAL T>100.5 06/11/16 17:45 07/11/16 17:44 Albuterol/ Ipratropium (DuoNeb 0.5-3(2.5)mg/3ml) 3 ml Q4H PRN HHN Shortness of Breath 06/11/16 17:45 06/16/16 17:44 Cefepime HCl 2 gm/ Dextrose 110 ml @ 220 mls/hr Q12HR@0500,1700 IV 06/11/16 17:00 06/17/16 16:59 Chlordiazepoxide (Librium) 25 mg Q6H PRN ORAL anxiety, tachycardia 06/11/16 15:45 06/18/16 15:44 Diphenhydramine HCl (Benadryl) 25 mg Q6H PRN IVP Itching 06/11/16 15:45 07/11/16 15:44 Folic Acid 1 mg/ Magnesium Sulfate 2000 mg/ Multivitamins 10 ml/Sodium Chloride 1,000 ml @ 125 mls/hr Q24H IV 06/12/16 12:00 07/12/16 11:59 Heparin Sodium (Porcine) (Heparin 5000 units/ml) 5,000 units EVERY 12 HOURS SUBQ 06/11/16 21:00 07/11/16 20:59 Morphine Sulfate (Morphine Sulfate) 2 mg Q4H PRN IVP PAIN 4-10 06/11/16 17:45 06/18/16 17:44 Nitroglycerin (Ntg) 0.4 mg Q5MIN X 3 DOSES PRN SL Prn Chest Pain 06/11/16 15:30 07/11/16 15:29 Ondansetron HCl (Zofran) 4 mg Q6H PRN IVP Nausea & Vomiting 06/11/16 19:45 07/11/16 19:44 Polyethylene Glycol (Miralax) 17 gm DAILYPRN PRN ORAL Constipation 06/12/16 13:45 07/12/16 13:44 Temazepam (Restoril) 15 mg HSPRN PRN ORAL Insomnia 06/11/16 21:00 06/18/16 20:59 Thiamine HCl 100 mg/Dextrose 56 ml @ 112 mls/hr Q24H IVPB 06/12/16 12:00 07/12/16 11:59 Vancomycin HCl (Vanco rx to dose) 1 ea DAILY PRN MISC . 06/12/16 09:00 07/12/16 08:59 Vancomycin HCl/ Dextrose (Vancomycin/D5W) 275 ml @ 183.333 mls/hr Q12HR@0400,1600 IVPB 06/11/16 16:00 06/15/16 15:59 Brandan Rubin M.D. Jun 11, 2016 16:26
--- NOTE | 2016-06-11 16:29 | History and Physical Report ---
DATE OF ADMISSION: 06/10/2016 CONSULTANTS: 1. Bushra Lai M.D. 2. Santos Jones M.D. 3. Brandan Rubin M.D. 4. Javan Rawls M.D. 5. Jason Germain M.D. CHIEF COMPLAINT: Abdominal pain, nausea, and vomiting for two days, UTI, sepsis, and tachycardia. HISTORY OF PRESENT ILLNESS: The patient is a 40-year-old female from home, presents with the above-mentioned diagnosis with high lactic acid levels, very weak, and lower extremity weakness as well, admitted to the ICU for further care. Currently, weak in the bed in the ICU. Slight nausea. No vomiting. No complaints. PAST MEDICAL HISTORY: Includes a lower extremity weakness and abdominal pain. PAST SURGICAL HISTORY: Hidradenitis and weight loss surgery. MEDICATIONS: Includes Benadryl, heparin, Restoril, cefepime, vancomycin, nitroglycerin, Tylenol, morphine, Zofran, and vancomycin. ALLERGY: NSAIDs. SOCIAL HISTORY: No smoking. No alcohol. No intravenous drug use. FAMILY HISTORY: Noncontributory. REVIEW OF SYSTEMS: No chest pain. No shortness of breath. Slight nausea and vomiting. No diarrhea. PHYSICAL EXAMINATION: GENERAL: Calm in bed, oriented x3, and in no acute distress. VITAL SIGNS: Show temperature is 98 degrees, pulse 114, respirations 20, and blood pressure 155/82. CARDIOVASCULAR: No murmur. LUNGS: Poor air exchange. ABDOMEN: Bowel sounds are positive. Slightly tender. No guarding. No rigidity. No rebound. EXTREMITIES: No cyanosis, clubbing, or edema. NEUROLOGIC: The patient moves all extremities, but slightly weak. LABORATORY DATA: Lab exams show white count 3.7, hemoglobin and hematocrit are 8 and 23, and platelets is 156,000. BMP is sodium 133, chloride of 93, and BUN 6. Albumin 2.7. Urinalysis is 3+ leukocyte esterase. Urine toxicology is negative. ASSESSMENT: 1. Abdominal pain, nausea, and vomiting. 2. Urinary tract infection. 3. Sepsis. 4. Tachycardia. 5. Anemia. 6. High lactic acid. 7. Lower extremity weakness. PLAN: Continue premedications. OT, PT, and dietary evaluation. CBC and BMP in the morning. Transfuse p.r.n. Antibiotics per Infectious Disease. Resume home medications. Dr. Lai, Dr. Jones, Dr. Rubin, Dr. Rawls, and Dr. Germain to consult. We will continue to follow this patient. Franky Olvera D.O. DR: KERRY JOB#: [id number] CC:
--- NOTE | 2016-06-11 16:59 | Cardiology Progress Note ---
Subjective Subjective [id number] Objective Last 24 Hour Vital Signs Date Time Temp Pulse Resp B/P Pulse Ox O2 Delivery O2 Flow Rate FiO2 06/11/16 16:00 98.2 116 18 157/87 97 Room Air 06/11/16 14:00 108 16 156/98 100 Room Air 06/11/16 13:00 104 16 142/85 100 Room Air 06/11/16 12:00 98.8 106 16 141/90 100 Room Air 06/11/16 12:00 108 06/11/16 11:00 109 16 145/85 100 Room Air 06/11/16 10:00 105 16 158/99 100 Room Air 06/11/16 09:00 102 17 146/96 100 Room Air 06/11/16 08:00 99.1 107 18 156/86 99 Room Air 06/11/16 08:00 110 06/11/16 07:00 108 20 142/86 100 Room Air 06/11/16 06:00 114 20 155/82 100 Room Air 06/11/16 05:00 112 19 160/82 100 Room Air 06/11/16 04:00 115 06/11/16 04:00 98.8 115 20 168/85 100 Room Air 06/11/16 03:00 116 20 151/84 100 Room Air 06/11/16 02:00 116 21 155/82 100 Room Air 06/11/16 01:00 119 21 165/82 100 Room Air 06/11/16 00:00 136 06/11/16 00:00 99.0 122 21 149/81 100 Room Air 06/10/16 23:00 125 21 112/70 100 Room Air 06/10/16 22:00 130 21 114/61 100 Room Air 06/10/16 21:00 129 21 124/83 100 Room Air 06/10/16 20:00 98.9 136 21 144/77 100 Room Air 06/10/16 20:00 136 06/10/16 19:09 136 20 Room Air 21 06/10/16 18:00 135 21 151/84 100 Room Air 06/10/16 17:33 98.1 06/10/16 17:00 133 15 165/73 96 Room Air Intake and Output 06/10/16 06/11/16 19:00 07:00 Intake Total 3200 ml 1420 ml Output Total 2 ml 705 ml Balance 3198 ml 715 ml IV Total 1420 ml Other 3200 ml Output Urine Total 2 ml 5 ml Stool Total 700 ml # Voids 2 Laboratory Tests Test 06/10/16 21:05 06/11/16 04:50 Lactic Acid Level 4.60 mmol/L (0.66-2.22) H 1.90 mmol/L (0.66-2.22) White Blood Count 3.7 K/UL (4.8-10.8) L Red Blood Count 2.06 M/UL (4.20-5.40) L Hemoglobin 8.0 G/DL (12.0-16.0) L Hematocrit 23.6 % (37.0-47.0) L Mean Corpuscular Volume 115 FL (80-99) H Mean Corpuscular Hemoglobin 38.9 PG (27.0-31.0) H Mean Corpuscular Hemoglobin Concent 34.0 G/DL (32.0-36.0) Red Cell Distribution Width 18.5 % (11.6-14.8) H Platelet Count 156 K/UL (150-450) Mean Platelet Volume 6.0 FL (6.5-10.1) L Neutrophils (%) (Auto) % (45.0-75.0) Lymphocytes (%) (Auto) % (20.0-45.0) Monocytes (%) (Auto) % (1.0-10.0) Eosinophils (%) (Auto) % (0.0-3.0) Basophils (%) (Auto) % (0.0-2.0) Reticulocyte Count 0.2 % (0.0-2.0) Prothrombin Time 11.3 SEC (9.30-11.50) Prothromb Time International Ratio 1.1 (0.9-1.1) Activated Partial Thromboplast Time 28 SEC (23-33) Sodium Level 133 mEQ/L (135-145) L Potassium Level 3.5 mEQ/L (3.4-4.9) Chloride Level 93 mEQ/L (98-107) L Carbon Dioxide Level 24 mEQ/L (20-30) Anion Gap 16 (5-15) H Blood Urea Nitrogen 6 mg/dL (7-23) L Creatinine 0.8 mg/dL (0.5-0.9) Estimat Glomerular Filtration Rate > 60 mL/min (>60) Glucose Level 88 mg/dL (74-106) Calcium Level 7.9 mg/dL (8.6-10.2) L Iron Level 195 ug/dL (37-145) H Total Iron Binding Capacity 211 ug/dL (250-400) L Percent Iron Saturation 92 % (15-50) H Unsaturated Iron Binding < 16 ug/dL (112-346) L Ferritin 756 ng/mL (13-150) H Total Bilirubin 1.2 mg/dL (0.0-1.2) Direct Bilirubin 0.3 mg/dL (0.1-0.3) Aspartate Amino Transf (AST/SGOT) 51 U/L (5-40) H Alanine Aminotransferase (ALT/SGPT) 41 U/L (3-33) H Alkaline Phosphatase 81 U/L (35-104) Total Protein 6.4 g/dL (6.6-8.7) L Albumin 2.7 g/dL (3.5-5.2) L Globulin 3.7 g/dL Albumin/Globulin Ratio 0.7 (1.0-2.7) L Lipase 184 U/L (< 60) H Vitamin B12 Level 630 pg/mL (211-946) Folate Pending Thyroid Stimulating Hormone (TSH) 5.040 uIU/mL (0.300-4.500) Free Thyroxine 1.20 ng/dL (0.86-1.85) ALANNAH JIANG Jun 11, 2016 16:59
[2016-06-11] MEDS ORDERED: DuoNeb 0.5-3(2.5)mg/3ml neb HHN PRN (17:45)
[2016-06-11] MEDS: Vancomycin 1.25 GM in D5W 275 ML IVPB SCH (18:11)
[2016-06-11] MEDS: metroNIDAZOLE 500mg 100 ML IVPB SCH (21:22)
[2016-06-12] VITALS: BP 137/94
--- NOTE | 2016-06-12 00:09 | Consultation ---
DATE OF CONSULTATION: 06/11/2016 CARDIOLOGY CONSULTATION IDENTIFYING DATA: This is a 40-year-old female. REASON FOR EVALUATION: Tachycardia. HISTORY OF PRESENT ILLNESS: History of present illness taken from the patient. She says she came with epigastric pain and severe leg weakness. She was not able to walk and she did not have any cardiac complaints, but she said her heart rate was really fast when she came in. PAST MEDICAL HISTORY: According to her significant only for hidradenitis. She denies any psychiatric problems. PAST SURGICAL HISTORY: Also significant only to drainage of hidradenitis. SOCIAL HISTORY: Alcohol, she says she drinks three times a week about three shots, may be some wine. The patient denies any drug abuse or smoking. She says she lives at home. She is not very good historian. Her coronary risk factors include none. She does not have hypertension, hyperlipidemia or diabetes. REVIEW OF SYSTEMS: Significant for weakness, especially leg and she has some severe epigastric discomfort. She is feels better now. She is to have chills when she came in. She could not eat anything, she says her appetite is so bad. She does not have any diarrhea or vomiting. From cardiac standpoint, no history of cardiac problems. No chest pain, palpitations, syncope, orthopnea or leg edema. PHYSICAL EXAMINATION: GENERAL: This is a young female, appears to be not in acute distress. VITAL SIGNS: Blood pressure 150/80, heart rate is 116, oxygen saturation is on room air 97%, and temperature 98.2 degrees. HEENT: PERRLA. Extraocular muscles intact. NECK: Supple. Jugular venous pressure is not elevated. She has preserved carotid upstroke, but there is no thyromegaly. LUNGS: She has decreased breath sounds in the right base, otherwise clear. BREASTS: No masses. HEART: Regular. Slightly accentuated S1. ABDOMEN: Soft, nontender, and slightly distended. Bowel sounds are present. EXTREMITIES: Lower extremities, no edema. Distal pulses palpable. LABORATORY AND DIAGNOSTIC DATA: EKG shows sinus tachycardia at the rate of 147 beats per minute, but otherwise her EKG unremarkable. Her labs, all reviewed. TSH was 5. Her lipase was 182. She was anemic. Her potassium 3.5 and hemoglobin today was 8.0. IMPRESSION AND RECOMMENDATION: Sinus tachycardia probably due to several factors such as infection, possible anemia, urinary tract infection, dehydration, alcohol intoxication. We are going to do echo to make sure the patient does not have alcoholic cardiomyopathy. Her blood pressure is slightly elevated, but it is coming down and also her heart rate is slightly fast, so it could be that she is still septic, I do not want to give anything for blood pressure to avoid dramatic drop of blood pressure and I call her after echo is done. Thank you very much for your consultation. This consultation was done as a coverage for Dr. Germain. Yamel Callejas M.D. DR: ANGEL JOB#: [id number] CC:
[2016-06-12] MEDS: chlordiazePOXIDE 25mg Cap ORAL PRN ×4 (01:01→23:01)
[2016-06-12] MEDS: metroNIDAZOLE 500mg 100 ML IVPB SCH ×3 (01:02→23:03)
[2016-06-12] MEDS: Morphine Sulfate 2mg/ml Inj IVP PRN ×5 (03:08→21:51)
[2016-06-12 04:00] VITALS: BP 94/57
--- NOTE | 2016-06-12 04:19 | Consultation ---
DATE OF CONSULTATION: 06/11/2016 NEUROLOGICAL CONSULTATION: CONSULTING PHYSICIAN: Javan Rawls M.D. REQUESTING PHYSICIAN: Franky Olvera D.O. HISTORY OF PRESENT ILLNESS: The patient is a 40-year-old female seen in neurological consultation to evaluate a progressive weakness in lower extremities. The patient informed me that four to five days prior to admission, with no obvious reason, she started to have numbness in her feet, which in the following days gradually were raising up to accompanied by profound weakness in her both lower extremities. Finally, on the day of admission, she woke up in the morning, was unable to ambulate and paramedics were called to the scene. In addition, the patient has noted that for four to five days, she is unable to eat. When she attempts to eat, she would feel nausea and vomiting. She feels similar discomfort with trying to have some fluids, but still she was able to take a couple of shots of Tequila every other day with the last drink two days prior to admission. She was brought to the emergency room complaining of sharp, diffuse headaches, feeling very weak and ill. Her vital signs were stable. She was afebrile Her initial laboratory studies included an anemia with hemoglobin 10.3 and hematocrit 32.3. Her chemistry panel, chloride 90, anion gap of 33, lactic acid elevated 13.2. Elevated AST of 90 and ALT 63. Lipase 304. Repeated studies, elevated TSH 5.40. Lipase down to 184. Normal B12. Toxicology panel negative except serum alcohol of 31, and urinalysis 10-15 WBCs, ketones 2+, and leukocyte esterase 3+. PAST MEDICAL AND SURGICAL HISTORY: The patient has a history of morbid obesity with gastric sleeve performed. She has a history of hidradenitis, recurrent, initially in the childhood in both armpits, required surgical drain. She was stabilized and at the age of 27, started again to have hidradenitis recurrences in both groins and armpits. She underwent multiple surgeries. MEDICATIONS: Since admission, the patient is maintained on Restoril, thiamine supplement, vancomycin, albuterol, folate, subcutaneous heparin, morphine p.r.n., Zofran p.r.n. and MiraLAX p.r.n. ALLERGIES: None reported. SOCIAL HISTORY: No drug abuse. Nonsmoker, but in the last three years, she likes social drinking, 2 tequilas every three to four days. The patient is disabled for the last seven years due to the multiple surgeries. REVIEW OF SYMPTOMS: Abdominal discomfort, pain, profound weakness, numbness and tingling in both lower extremities with the numbness reaching up to mid abdomen area. Infected right armpit, left lower abdomen sleeves. Constipation a couple of days, normal urination. Limited oral intact due to nausea and vomiting. No chest pain or palpitation. No respiratory problems. PHYSICAL EXAMINATION: GENERAL: Well developed, morbidly obese female, not in acute distress, lying comfortably in bed. VITAL SIGNS: Now stable. Blood pressure 156/98, heart rate of 108, and she is afebrile. HEENT: Head is normocephalic. No evidence of trauma. Eyes, ears, and throat are clear. NECK: Supple. No meningeal signs. MUSCULOSKELETAL: Remarkable for infected areas around armpit and along lower abdomen sleeves. This is of note that there is tenderness from percussion over cervical, dorsal lumbar spine except sensation when percussing lower back. PERIPHERAL PULSES: A 1+ symmetric. MENTAL STATUS: Alert and oriented x3. Speech is fluent. Language intact. There is no aphasia. No apraxia. Cognitive function normal. CRANIAL NERVE II: Pupils both responding to light and accommodation. Extraocular movement intact. CRANIAL NERVE V: Normal corneal responses. CRANIAL NERVE VII: No facial asymmetry. CRANIAL NERVE VIII: Normal hearing. CRANIAL NERVES IX THROUGH XII: Tongue is in midline. Symmetric palate elevation. MOTOR EXAMINATION: Able to lift arms against the gravity. Strength 5/5. Lower extremity weakness 2/5 bilaterally, but was able to bend both knees, but not lift against the gravity . Deep reflexes 1+ biceps, triceps, brachioradialis, 1+ right knee, absent left knee, absent both ankle jerks. Plantar response is mute. SENSORY EXAMINATION: Reduced response to pin stimulation with areas of no sensation on pin stimulation. Patchy distribution from approximately area T10 down. The patient is unable to turn around without assistance, unable to sit or stand up. IMPRESSION: 1. This is a 40-year-old female with a new onset of progressing weakness in distal lower extremities up to mid thoracic area, rule out a cord compression, thoracic spine area rule out a Guillain-[place]ge syndrome, rule out a sensorimotor polyneuropathy, ascending. 2. Social alcohol use. 3. Recurrent hydradenitis. 4. Morbid obesity, status post gastric sleeve surgery. 5. Abnormal liver enzymes. 6. Urinary tract infection, acute. 7. Elevated lipase, rule out pancreatitis. RECOMMENDATION: 1. GI workup in process. 2. Stat MRI studies of cervical, thoracic, and lumbar spine. 3. Neurology monitoring. 4. Laboratory work to include hepatitis panel, sedimentation rate, LUPE, serum protein electrophoresis, B12, folate, and thyroid function. The patient's treatment to include banana bag with magnesium, folate, and thiamine supplements daily. PT/OT and speech therapy assessment. We will follow with you. Thank you for allowing me to see this interesting patient in neurological consultation. Javan Rawls M.D. DR: Jessica JOB#: [id number] CC:
[2016-06-12] MEDS: Cefepime HCl 2 GM in D5W 110 ML IV SCH ×2 (05:00→21:41)
[2016-06-12 05:18] LABS: MEAN CORPUSCULAR HEMOGLOBIN 37.9 PG (27.0-31.0); MEAN CORPUSCULAR HGB CONC 32.8 G/DL (32.0-36.0); MEAN CORPUSCULAR VOLUME 116 FL (80-99); MEAN PLATELET VOLUME 5.6 FL (6.5-10.1); PLATELET COUNT 133 K/UL (150-450); RED BLOOD COUNT 2.25 M/UL (4.20-5.40); RED CELL DISTRIBUTION WIDTH 18.4 % (11.6-14.8)
[2016-06-12 06:34] LABS: ANION GAP 15 (5-15); CALCIUM 8.2 mg/dL (8.6-10.2); CARBON DIOXIDE 25 mEQ/L (20-30); CHLORIDE 97 mEQ/L (98-107); CREATININE 0.8 mg/dL (0.5-0.9); GLOMERULAR FILTRATION RATE > 60 mL/min (>60); HEMOLYSIS 6; POTASSIUM 3.3 mEQ/L (3.4-4.9); SODIUM 137 mEQ/L (135-145)
[2016-06-12] MEDS: Vancomycin 1.25 GM in D5W 275 ML IVPB SCH (07:23)
--- NOTE | 2016-06-12 07:41 | General Progress Note ---
Assessment/Plan Problem List: (1) Abdominal pain ICD Codes: R10.9 - Unspecified abdominal pain SNOMED: 93152495 (2) Pancytopenia ICD Codes: D61.818 - Other pancytopenia SNOMED: 021540088 (3) Weak ICD Codes: R53.1 - Weakness SNOMED: 37178962 (4) UTI (urinary tract infection) ICD Codes: N39.0 - Urinary tract infection, site not specified SNOMED: 67191506 (5) Acidosis ICD Codes: E87.2 - Acidosis SNOMED: 06436789 Status: stable, progressing Assessment/Plan ot pt diet abx hem eval cbc bmp am Subjective Constitutional: Reports: weakness Gastrointestinal/Abdominal: Reports: nausea Allergies: Coded Allergies: IBUPROFEN (Verified Allergy, Severe, 06/11/16) NSAIDS (NON-STEROIDAL ANTI-INFLAMMA (Verified Allergy, Severe, 06/11/16) Uncoded Allergies: NSAIDS include Ibuprofen (Adverse Reaction, Severe, Anaphylaxis, 06/11/16) Swollen face and lip All Systems: reviewed and negative except above Subjective calm in bed Objective Last 24 Hour Vital Signs Date Time Temp Pulse Resp B/P Pulse Ox O2 Delivery O2 Flow Rate FiO2 06/12/16 07:00 96 19 Room Air 06/12/16 04:00 97.7 80 20 94/57 100 Room Air 06/12/16 04:00 98 06/12/16 00:00 98.1 89 20 137/94 100 Room Air 06/12/16 00:00 95 06/11/16 20:35 99.7 97 18 147/98 95 Room Air 06/11/16 20:32 94 20 Room Air 21 06/11/16 20:03 95 06/11/16 20:00 108 16 156/98 100 Room Air 06/11/16 16:00 98.2 116 18 157/87 97 Room Air 06/11/16 16:00 116 06/11/16 14:00 108 16 156/98 100 Room Air 06/11/16 13:00 104 16 142/85 100 Room Air 06/11/16 12:00 98.8 106 16 141/90 100 Room Air 06/11/16 12:00 108 06/11/16 11:00 109 16 145/85 100 Room Air 06/11/16 10:00 105 16 158/99 100 Room Air 06/11/16 09:00 102 17 146/96 100 Room Air 06/11/16 08:00 99.1 107 18 156/86 99 Room Air 06/11/16 08:00 110 Intake and Output 06/11/16 06/12/16 19:00 07:00 Intake Total 1768 ml 2195 ml Output Total 400 ml 1300 ml Balance 1368 ml 895 ml Intake Oral 590 ml 1000 ml IV Total 1178 ml 1195 ml Output Urine Total 400 ml 1300 ml # Voids 2 5 Laboratory Tests 06/12/16 03:35: White Blood Count 4.0L, Red Blood Count 2.25L, Hemoglobin 8.5L, Hematocrit 26.0L , Mean Corpuscular Volume 116H, Mean Corpuscular Hemoglobin 37.9H, Mean Corpuscular Hemoglobin Concent 32.8, Red Cell Distribution Width 18.4H, Platelet Count 133L, Mean Platelet Volume 5.6L, Neutrophils (%) (Auto) , Lymphocytes (%) (Auto) , Monocytes (%) (Auto) , Eosinophils (%) (Auto) , Basophils (%) (Auto) , Neutrophils % (Manual) [Pending], Lymphocytes % (Manual) [Pending], Platelet Estimate [Pending], Platelet Morphology [Pending], Sodium Level 137, Potassium Level 3.3L, Chloride Level 97L, Carbon Dioxide Level 25, Anion Gap 15, Blood Urea Nitrogen 8, Creatinine 0.8, Estimat Glomerular Filtration Rate > 60, Glucose Level 96, Calcium Level 8.2L, Vancomycin Level Trough 17.2H Height (Feet): 5 Height (Inches): 8.00 Weight (Pounds): 145 General Appearance: alert EENT: normal ENT inspection Neck: normal alignment Cardiovascular: normal peripheral pulses, normal rate, regular rhythm Respiratory/Chest: chest wall non-tender, lungs clear, normal breath sounds Abdomen: normal bowel sounds, non tender, soft Extremities: normal inspection Edema: no edema noted Arm (L), no edema noted Arm (R), no edema noted Leg (L), no edema noted Leg (R), no edema noted Pedal (L), no edema noted Pedal (R) Neurologic: responsive, motor weakness Skin: normal pigmentation, warm/dry PIETER GAUTHIER Jun 12, 2016 07:41
[2016-06-12 08:00] VITALS: BP 133/88
[2016-06-12] MEDS: Heparin 5000 units/ml inj SUBQ SCH ×2 (08:10→23:00)
[2016-06-12] MEDS: DiphenhydrAMINE 50mg/ml Inj IVP PRN ×3 (08:19→23:01)
[2016-06-12 09:36] LABS: ANISOCYTOSIS 1+; EOSINOPHILS % (MANUAL) 2 % (0-3); LYMPHOCYTES % (MANUAL) 35 % (20-45); NEUTROPHILS % (MANUAL) 60 % (45-75); TOTAL CELLS COUNTED 100
[2016-06-12 09:37] LABS: BAND NEUTROPHILS % (MANUAL) 0 % (0-8); BASOPHILS % (MANUAL) 0 % (0-2); HYPOCHROMASIA 1+; PLATELET ESTIMATE DECREASED; PLATELET MORPHOLOGY NORMAL
--- NOTE | 2016-06-12 10:44 | Consultation ---
History of Present Illness General Date patient seen: Jun 12, 2016 Chief Complaint: Abdominal Pain Present Illness Allergies: Coded Allergies: IBUPROFEN (Verified Allergy, Severe, 06/11/16) NSAIDS (NON-STEROIDAL ANTI-INFLAMMA (Verified Allergy, Severe, 06/11/16) Uncoded Allergies: NSAIDS include Ibuprofen (Adverse Reaction, Severe, Anaphylaxis, 06/11/16) Swollen face and lip Medication History Scheduled No Known Medications* (NKM - No Known Medications*), 0 ., (Reported) Patient History Healthcare decision maker Resuscitation status Full Code Advanced Directive on File Physical Exam Last 24 Hour Vital Signs Date Time Temp Pulse Resp B/P Pulse Ox O2 Delivery O2 Flow Rate FiO2 06/12/16 08:00 99.1 96 21 133/88 100 Room Air 06/12/16 08:00 96 06/12/16 07:00 96 19 Room Air 21 06/12/16 04:00 97.7 80 20 94/57 100 Room Air 06/12/16 04:00 98 06/12/16 00:00 98.1 89 20 137/94 100 Room Air 06/12/16 00:00 95 06/11/16 20:35 99.7 97 18 147/98 95 Room Air 06/11/16 20:32 94 20 Room Air 21 06/11/16 20:03 95 06/11/16 20:00 108 16 156/98 100 Room Air 06/11/16 16:00 98.2 116 18 157/87 97 Room Air 06/11/16 16:00 116 06/11/16 14:00 108 16 156/98 100 Room Air 06/11/16 13:00 104 16 142/85 100 Room Air 06/11/16 12:00 98.8 106 16 141/90 100 Room Air 06/11/16 12:00 108 06/11/16 11:00 109 16 145/85 100 Room Air Intake and Output 06/11/16 06/12/16 19:00 07:00 Intake Total 1768 ml 2195 ml Output Total 400 ml 1300 ml Balance 1368 ml 895 ml Intake Oral 590 ml 1000 ml IV Total 1178 ml 1195 ml Output Urine Total 400 ml 1300 ml # Voids 2 5 Laboratory Tests Test 06/12/16 03:35 White Blood Count 4.0 K/UL (4.8-10.8) L Red Blood Count 2.25 M/UL (4.20-5.40) L Hemoglobin 8.5 G/DL (12.0-16.0) L Hematocrit 26.0 % (37.0-47.0) L Mean Corpuscular Volume 116 FL (80-99) H Mean Corpuscular Hemoglobin 37.9 PG (27.0-31.0) H Mean Corpuscular Hemoglobin Concent 32.8 G/DL (32.0-36.0) Red Cell Distribution Width 18.4 % (11.6-14.8) H Platelet Count 133 K/UL (150-450) L Mean Platelet Volume 5.6 FL (6.5-10.1) L Neutrophils (%) (Auto) % (45.0-75.0) Lymphocytes (%) (Auto) % (20.0-45.0) Monocytes (%) (Auto) % (1.0-10.0) Eosinophils (%) (Auto) % (0.0-3.0) Basophils (%) (Auto) % (0.0-2.0) Differential Total Cells Counted 100 Neutrophils % (Manual) 60 % (45-75) Lymphocytes % (Manual) 35 % (20-45) Monocytes % (Manual) 3 % (1-10) Eosinophils % (Manual) 2 % (0-3) Basophils % (Manual) 0 % (0-2) Band Neutrophils 0 % (0-8) Platelet Estimate Decreased L Platelet Morphology Normal Hypochromasia 1+ Anisocytosis 1+ Sodium Level 137 mEQ/L (135-145) Potassium Level 3.3 mEQ/L (3.4-4.9) L Chloride Level 97 mEQ/L (98-107) L Carbon Dioxide Level 25 mEQ/L (20-30) Anion Gap 15 (5-15) Blood Urea Nitrogen 8 mg/dL (7-23) Creatinine 0.8 mg/dL (0.5-0.9) Estimat Glomerular Filtration Rate > 60 mL/min (>60) Glucose Level 96 mg/dL (74-106) Calcium Level 8.2 mg/dL (8.6-10.2) L Vancomycin Level Trough 17.2 ug/mL (5.0-12.0) H Height (Feet): 5 Height (Inches): 8.00 Weight (Pounds): 145 Medications Current Medications Medications (Trade) Dose Ordered Sig/Payam Route PRN Reason Start Time Stop Time Status Last Admin Dose Admin Acetaminophen (Tylenol) 650 mg Q4H PRN ORAL T>100.5 06/11/16 17:45 07/11/16 17:44 Acetaminophen/ Hydrocodone Bitart (Baldwin 10/325) 1 ea Q4H PRN ORAL moderate pain 06/12/16 10:45 06/19/16 10:44 UNV Albuterol/ Ipratropium (DuoNeb 0.5-3(2.5)mg/3ml) 3 ml Q4H PRN HHN Shortness of Breath 06/11/16 17:45 06/16/16 17:44 Cefepime HCl 2 gm/ Dextrose 110 ml @ 220 mls/hr Q12HR@0500,1700 IV 06/11/16 17:00 06/17/16 16:59 06/12/16 05:00 Chlordiazepoxide (Librium) 25 mg Q6H PRN ORAL anxiety, tachycardia 06/11/16 15:45 06/18/16 15:44 06/12/16 09:34 Diphenhydramine HCl (Benadryl) 25 mg Q6H PRN IVP Itching 06/11/16 15:45 07/11/16 15:44 06/12/16 08:19 Folic Acid 1 mg/ Magnesium Sulfate 2000 mg/ Multivitamins 10 ml/Sodium Chloride 1,000 ml @ 125 mls/hr Q24H IV 06/12/16 12:00 07/12/16 11:59 Gabapentin (Neurontin) 300 mg THREE TIMES A DAY ORAL 06/12/16 10:45 07/12/16 10:44 UNV Heparin Sodium (Porcine) (Heparin 5000 units/ml) 5,000 units EVERY 12 HOURS SUBQ 06/11/16 21:00 07/11/16 20:59 06/12/16 08:10 Metronidazole 100 ml @ 100 mls/hr Q8H IVPB 06/11/16 18:00 06/18/16 17:59 06/12/16 09:34 Morphine Sulfate (Morphine Sulfate) 2 mg Q4H PRN IVP PAIN 4-10 06/11/16 17:45 06/18/16 17:44 06/12/16 08:10 Nitroglycerin (Ntg) 0.4 mg Q5MIN X 3 DOSES PRN SL Prn Chest Pain 06/11/16 15:30 07/11/16 15:29 Ondansetron HCl (Zofran) 4 mg Q6H PRN IVP Nausea & Vomiting 06/11/16 19:45 07/11/16 19:44 06/12/16 09:34 Polyethylene Glycol (Miralax) 17 gm DAILYPRN PRN ORAL Constipation 06/12/16 13:45 07/12/16 13:44 Temazepam (Restoril) 15 mg HSPRN PRN ORAL Insomnia 06/11/16 21:00 06/18/16 20:59 06/11/16 19:37 Thiamine HCl/ Dextrose (Vitamin B1/D5W) 56 ml @ 112 mls/hr Q24H IVPB 06/12/16 12:00 07/12/16 11:59 Vancomycin HCl 1 ea 1 ea DAILY PRN MISC . 06/12/16 09:00 07/12/16 08:59 Vancomycin HCl/ Dextrose (Vancomycin/D5W) 275 ml @ 183.708 mls/hr Q12HR@0400,1600 IVPB 06/12/16 16:00 06/17/16 15:59 Assessment/Plan Assessment/Plan (1) Intractable pain (2) Hydradenitis (4) Lumbar DDD (5) Lumbar Spondylosis (6) Morbid obesity S/p gastric sleeve surgery (7) Abdominal pain Consult dictated OMARI LUA Jun 12, 2016 10:44
[2016-06-12] MEDS ORDERED: Norco 10mg/325mg tab ORAL PRN ×2 (10:45→18:45)
[2016-06-12 12:00] VITALS: BP 133/84
[2016-06-12] MEDS ORDERED: Thiamine HCl 100 MG in D5W 55 ML IVPB SCH (12:00)
[2016-06-12] MEDS ORDERED: Folic Acid 1 MG, Magnesium Sulfate 2,000 MG, Multivitamin - 12 Injection 10 ML in NS w/... IV SCH (12:00)
--- NOTE | 2016-06-12 12:13 | Pulmonology Progress Note ---
Assessment/Plan Problems: (1) Sepsis (2) Abdominal pain (3) Severe anemia (4) Acute alcohol intoxication (5) UTI (urinary tract infection) Assessment/Plan iv hydration advance diet check cultures continue antibiotics med/surg neuro evaluation Subjective ROS Limited/Unobtainable: No Constitutional: Reports: no symptoms HEENT: Repors: no symptoms Respiratory: Reports: no symptoms Cardiovascular: Reports: no symptoms Allergies: Coded Allergies: IBUPROFEN (Verified Allergy, Severe, 06/11/16) NSAIDS (NON-STEROIDAL ANTI-INFLAMMA (Verified Allergy, Severe, 06/11/16) Uncoded Allergies: NSAIDS include Ibuprofen (Adverse Reaction, Severe, Anaphylaxis, 06/11/16) Swollen face and lip Objective Last 24 Hour Vital Signs Date Time Temp Pulse Resp B/P Pulse Ox O2 Delivery O2 Flow Rate FiO2 06/12/16 08:40 97.7 06/12/16 08:00 99.1 96 21 133/88 100 Room Air 06/12/16 08:00 96 06/12/16 07:00 96 19 Room Air 06/12/16 04:00 97.7 80 20 94/57 100 Room Air 06/12/16 04:00 98 06/12/16 00:00 98.1 89 20 137/94 100 Room Air 06/12/16 00:00 95 06/11/16 20:35 99.7 97 18 147/98 95 Room Air 06/11/16 20:32 94 20 Room Air 21 06/11/16 20:03 95 06/11/16 20:00 108 16 156/98 100 Room Air 06/11/16 16:00 98.2 116 18 157/87 97 Room Air 06/11/16 16:00 116 06/11/16 14:00 108 16 156/98 100 Room Air 06/11/16 13:00 104 16 142/85 100 Room Air Intake and Output 06/11/16 06/12/16 18:59 06:59 Intake Total 1853 ml 2430 ml Output Total 400 ml 1300 ml Balance 1453 ml 1130 ml Intake Oral 590 ml 1000 ml IV Total 1263 ml 1430 ml Output Urine Total 400 ml 1300 ml # Voids 2 5 HEENT: normocephalic, atraumatic, PERRL Respiratory/Chest: lungs clear Cardiovascular: normal peripheral pulses, normal rate Abdomen: normal bowel sounds, soft, non tender Genitourinary: normal external genitalia Extremities: no cyanosis Skin: no rash Microbiology Date/Time Source Procedure Growth Status 06/10/16 11:45 Blood Blood Culture - Preliminary NO GROWTH AFTER 24 HOURS Resulted 06/10/16 11:30 Blood Blood Culture - Preliminary NO GROWTH AFTER 24 HOURS Resulted 06/10/16 14:20 Nasal Nares MRSA Culture - Final NO METHICILLIN RESISTANT STAPH AUREUS... Complete 06/10/16 10:10 Urine,Clean Catch Urine Culture - Preliminary Gram Negative Bacillus 1 Resulted 06/10/16 14:20 Rectum VRE Culture - Final NO VANCOMYCIN RESISTANT ENTEROCOCCUS ... Complete Laboratory Tests 06/12/16 03:35: White Blood Count 4.0L, Red Blood Count 2.25L, Hemoglobin 8.5L, Hematocrit 26.0L , Mean Corpuscular Volume 116H, Mean Corpuscular Hemoglobin 37.9H, Mean Corpuscular Hemoglobin Concent 32.8, Red Cell Distribution Width 18.4H, Platelet Count 133L, Mean Platelet Volume 5.6L, Neutrophils (%) (Auto) , Lymphocytes (%) (Auto) , Monocytes (%) (Auto) , Eosinophils (%) (Auto) , Basophils (%) (Auto) , Differential Total Cells Counted 100, Neutrophils % ( Manual) 60, Lymphocytes % (Manual) 35, Monocytes % (Manual) 3, Eosinophils % ( Manual) 2, Basophils % (Manual) 0, Band Neutrophils 0, Platelet Estimate DecreasedL, Platelet Morphology Normal, Hypochromasia 1+, Anisocytosis 1+, Sodium Level 137, Potassium Level 3.3L, Chloride Level 97L, Carbon Dioxide Level 25, Anion Gap 15, Blood Urea Nitrogen 8, Creatinine 0.8, Estimat Glomerular Filtration Rate > 60, Glucose Level 96, Calcium Level 8.2L, Vancomycin Level Trough 17.2H Current Medications Medications (Trade) Dose Ordered Sig/Payam Route PRN Reason Start Time Stop Time Status Last Admin Dose Admin Acetaminophen (Tylenol) 650 mg Q4H PRN ORAL T>100.5 06/11/16 17:45 07/11/16 17:44 Acetaminophen/ Hydrocodone Bitart ([place] 10/325) 1 ea Q4H PRN ORAL moderate pain 06/12/16 10:45 06/19/16 10:44 Albuterol/ Ipratropium (DuoNeb 0.5-3(2.5)mg/3ml) 3 ml Q4H PRN HHN Shortness of Breath 06/11/16 17:45 06/16/16 17:44 Cefepime HCl 2 gm/ Dextrose 110 ml @ 220 mls/hr Q12HR@0500,1700 IV 06/11/16 17:00 06/17/16 16:59 06/12/16 05:00 Chlordiazepoxide (Librium) 25 mg Q6H PRN ORAL anxiety, tachycardia 06/11/16 15:45 06/18/16 15:44 06/12/16 09:34 Diphenhydramine HCl (Benadryl) 25 mg Q6H PRN IVP Itching 06/11/16 15:45 07/11/16 15:44 06/12/16 08:19 Folic Acid 1 mg/ Magnesium Sulfate 2000 mg/ Multivitamins 10 ml/Sodium Chloride 1,000 ml @ 125 mls/hr Q24H IV 06/12/16 12:00 07/12/16 11:59 Gabapentin (Neurontin) 300 mg THREE TIMES A DAY ORAL 06/12/16 13:00 07/12/16 12:59 Heparin Sodium (Porcine) (Heparin 5000 units/ml) 5,000 units EVERY 12 HOURS SUBQ 06/11/16 21:00 07/11/16 20:59 06/12/16 08:10 Metronidazole 100 ml @ 100 mls/hr Q8H IVPB 06/11/16 18:00 06/18/16 17:59 06/12/16 09:34 Morphine Sulfate (Morphine Sulfate) 2 mg Q4H PRN IVP PAIN 4-10 06/11/16 17:45 06/18/16 17:44 06/12/16 08:10 Nitroglycerin (Ntg) 0.4 mg Q5MIN X 3 DOSES PRN SL Prn Chest Pain 06/11/16 15:30 07/11/16 15:29 Ondansetron HCl (Zofran) 4 mg Q6H PRN IVP Nausea & Vomiting 06/11/16 19:45 07/11/16 19:44 06/12/16 09:34 Polyethylene Glycol (Miralax) 17 gm DAILYPRN PRN ORAL Constipation 06/12/16 13:45 07/12/16 13:44 Temazepam (Restoril) 15 mg HSPRN PRN ORAL Insomnia 06/11/16 21:00 06/18/16 20:59 06/11/16 19:37 Thiamine HCl/ Dextrose (Vitamin B1/D5W) 56 ml @ 112 mls/hr Q24H IVPB 06/12/16 12:00 07/12/16 11:59 Vancomycin HCl 1 ea 1 ea DAILY PRN MISC . 06/12/16 09:00 07/12/16 08:59 Vancomycin HCl/ Dextrose (Vancomycin/D5W) 275 ml @ 183.708 mls/hr Q12HR@0400,1600 IVPB 06/12/16 16:00 06/17/16 15:59 DAVID CLARKE Jun 12, 2016 12:13
[2016-06-12] MEDS ORDERED: Miralax 17gm pkt ORAL PRN (13:45)
--- NOTE | 2016-06-12 15:03 | Neurology Progress Note ---
Interim History Interim History ROS Limited/Unobtainable: No Complaints: ache both thighs numb abdomen down Events: stable Objective Physical Exam Last Vital Signs Date Time Temp Pulse Resp B/P Pulse Ox O2 Delivery O2 Flow Rate FiO2 06/12/16 13:09 97.7 06/12/16 12:00 105 06/12/16 12:00 21 133/84 99 Room Air 06/12/16 07:00 21 06/10/16 15:20 2.0 Laboratory Tests Test 06/12/16 03:35 White Blood Count 4.0 K/UL (4.8-10.8) L Red Blood Count 2.25 M/UL (4.20-5.40) L Hemoglobin 8.5 G/DL (12.0-16.0) L Hematocrit 26.0 % (37.0-47.0) L Mean Corpuscular Volume 116 FL (80-99) H Mean Corpuscular Hemoglobin 37.9 PG (27.0-31.0) H Mean Corpuscular Hemoglobin Concent 32.8 G/DL (32.0-36.0) Red Cell Distribution Width 18.4 % (11.6-14.8) H Platelet Count 133 K/UL (150-450) L Mean Platelet Volume 5.6 FL (6.5-10.1) L Neutrophils (%) (Auto) % (45.0-75.0) Lymphocytes (%) (Auto) % (20.0-45.0) Monocytes (%) (Auto) % (1.0-10.0) Eosinophils (%) (Auto) % (0.0-3.0) Basophils (%) (Auto) % (0.0-2.0) Differential Total Cells Counted 100 Neutrophils % (Manual) 60 % (45-75) Lymphocytes % (Manual) 35 % (20-45) Monocytes % (Manual) 3 % (1-10) Eosinophils % (Manual) 2 % (0-3) Basophils % (Manual) 0 % (0-2) Band Neutrophils 0 % (0-8) Platelet Estimate Decreased L Platelet Morphology Normal Hypochromasia 1+ Anisocytosis 1+ Sodium Level 137 mEQ/L (135-145) Potassium Level 3.3 mEQ/L (3.4-4.9) L Chloride Level 97 mEQ/L (98-107) L Carbon Dioxide Level 25 mEQ/L (20-30) Anion Gap 15 (5-15) Blood Urea Nitrogen 8 mg/dL (7-23) Creatinine 0.8 mg/dL (0.5-0.9) Estimat Glomerular Filtration Rate > 60 mL/min (>60) Glucose Level 96 mg/dL (74-106) Calcium Level 8.2 mg/dL (8.6-10.2) L Vancomycin Level Trough 17.2 ug/mL (5.0-12.0) H General: well developed, no acute distress, other - obese Head: normocophalic, atraumatic Neck: no rigidity Neurologic Exam Mental Status: awake, alert, oriented x4, normal cognition, good mathematical skills, normal recent memory, normal remote memory, preserved visuospatial function Speech: normal speech, no dysarthia Language: normal language, no aphasia Cranial Nerve II: fundus normal, visual vargas, no papilledema Cranial Nerves III, IV, : PERRLA, EOMI, pupils Cranial Nerve V: normal facial sensations, temporales function normal, masseters function normal, pterygoids function normal Cranial Nerve VII: no facial asymmetry, normal facial expressions Cranial Nerve VIII: normal hearing, no nystagmus Cranial Nerve IX: normal palate elevation, gag response Cranial Nerve X: no voice hoarseness Cranial Nerve XI: SCM symmetric, trapezii function normal Cranial Nerve XII: tongue midline, no tongue atrophy/fasciculations Motor System: other - 2/5 ble, tender hips Sensory: other - sensory loss T8 down Coordination: other Deep Tendon Reflexes: 1+ ankle (L), 1+ ankle (R), 1+ bicep (L), 1+ bicep (R), 1 + brachioradialis (L), 1+ brachioradialis (R), 1+ knee (L), 1+ knee (R), 1+ tricep (L), 1+ tricep (R) Reflexes: mute plantar (L), mute plantar (R) Impression/Recommendations Problems: (1) Ascending paraparesis,r/o spinal cotd compression r/o GBS (2) Hydradenitis (3) Severe anemia Status: stable, progressing Recommendations #[id number] MRI pend DON DAWN Jun 12, 2016 15:03
--- NOTE | 2016-06-12 15:24 | Cardiology Progress Note ---
Assessment/Plan Assessment/Plan severe tachycardia, improved hypokalemia anemia alcohol abuse replace K monitor Hb will follow echo Subjective Subjective complaining on weakness, denies palpitations has epigastric pain Objective Last 24 Hour Vital Signs Date Time Temp Pulse Resp B/P Pulse Ox O2 Delivery O2 Flow Rate FiO2 06/12/16 13:09 97.7 06/12/16 12:00 105 06/12/16 12:00 98.1 99 21 133/84 99 Room Air 06/12/16 08:00 99.1 96 21 133/88 100 Room Air 06/12/16 08:00 96 06/12/16 07:00 96 19 Room Air 21 06/12/16 04:00 97.7 80 20 94/57 100 Room Air 06/12/16 04:00 98 06/12/16 00:00 98.1 89 20 137/94 100 Room Air 06/12/16 00:00 95 06/11/16 20:35 99.7 97 18 147/98 95 Room Air 06/11/16 20:32 94 20 Room Air 21 06/11/16 20:03 95 06/11/16 20:00 108 16 156/98 100 Room Air 06/11/16 16:00 98.2 116 18 157/87 97 Room Air 06/11/16 16:00 116 General Appearance: alert, mild distress EENT: PERRL/EOMI Neck: supple Rhythm: ST Cardiovascular: tachycardia Respiratory/Chest: lungs clear Abdomen: tender - in epigastrium Extremities: non-pitting Intake and Output 06/11/16 06/12/16 19:00 07:00 Intake Total 1768 ml 2195 ml Output Total 400 ml 1300 ml Balance 1368 ml 895 ml Intake Oral 590 ml 1000 ml IV Total 1178 ml 1195 ml Output Urine Total 400 ml 1300 ml # Voids 2 5 Laboratory Tests Test 06/12/16 03:35 White Blood Count 4.0 K/UL (4.8-10.8) L Red Blood Count 2.25 M/UL (4.20-5.40) L Hemoglobin 8.5 G/DL (12.0-16.0) L Hematocrit 26.0 % (37.0-47.0) L Mean Corpuscular Volume 116 FL (80-99) H Mean Corpuscular Hemoglobin 37.9 PG (27.0-31.0) H Mean Corpuscular Hemoglobin Concent 32.8 G/DL (32.0-36.0) Red Cell Distribution Width 18.4 % (11.6-14.8) H Platelet Count 133 K/UL (150-450) L Mean Platelet Volume 5.6 FL (6.5-10.1) L Neutrophils (%) (Auto) % (45.0-75.0) Lymphocytes (%) (Auto) % (20.0-45.0) Monocytes (%) (Auto) % (1.0-10.0) Eosinophils (%) (Auto) % (0.0-3.0) Basophils (%) (Auto) % (0.0-2.0) Differential Total Cells Counted 100 Neutrophils % (Manual) 60 % (45-75) Lymphocytes % (Manual) 35 % (20-45) Monocytes % (Manual) 3 % (1-10) Eosinophils % (Manual) 2 % (0-3) Basophils % (Manual) 0 % (0-2) Band Neutrophils 0 % (0-8) Platelet Estimate Decreased L Platelet Morphology Normal Hypochromasia 1+ Anisocytosis 1+ Sodium Level 137 mEQ/L (135-145) Potassium Level 3.3 mEQ/L (3.4-4.9) L Chloride Level 97 mEQ/L (98-107) L Carbon Dioxide Level 25 mEQ/L (20-30) Anion Gap 15 (5-15) Blood Urea Nitrogen 8 mg/dL (7-23) Creatinine 0.8 mg/dL (0.5-0.9) Estimat Glomerular Filtration Rate > 60 mL/min (>60) Glucose Level 96 mg/dL (74-106) Calcium Level 8.2 mg/dL (8.6-10.2) L Vancomycin Level Trough 17.2 ug/mL (5.0-12.0) H Microbiology Date/Time Source Procedure Growth Status 06/10/16 11:45 Blood Blood Culture - Preliminary NO GROWTH AFTER 24 HOURS Resulted 06/10/16 11:30 Blood Blood Culture - Preliminary NO GROWTH AFTER 24 HOURS Resulted 06/10/16 14:20 Nasal Nares MRSA Culture - Final NO METHICILLIN RESISTANT STAPH AUREUS... Complete 06/10/16 10:10 Urine,Clean Catch Urine Culture - Preliminary Gram Negative Bacillus 1 Resulted 06/10/16 14:20 Rectum VRE Culture - Final NO VANCOMYCIN RESISTANT ENTEROCOCCUS ... Complete DEIDREALANNAH Jun 12, 2016 15:24
[2016-06-12] MEDS ORDERED: Nitroglycerin Subl 0.4mg tab (Bottle Of 25) SL PRN (15:45)
[2016-06-12] MEDS ORDERED: Vancomycin 1gm in D5W 275ml IVPB SCH (16:00)
--- NOTE | 2016-06-12 16:02 | Consultation ---
Consult Note Consult Note asked to eval at the request of Dr Olvera date reviewed- consukltants note reviewed- Patinet interviewed and examined- . Assessment/Plan - Dehydration, Hypokalemia - Sepsis - Abdominal pain - Severe anemia - Acute alcohol intoxication - UTI (urinary tract infection) - Ascending paraparesis,r/o spinal cotd compression r/o GBS Plan: K supplements- Per consultants- monitor renal parameters and electrolytes- not much to add from renal stand point ROSA COYLE Jun 12, 2016 16:02
[2016-06-12 16:10] VITALS: BP 136/91
[2016-06-12] MEDS: Vancomycin 1 GM in D5W 275 ML IVPB SCH (17:01)
[2016-06-12] MEDS ORDERED: NS Irrig 1000ml ONE (17:44)
[2016-06-12] MEDS ORDERED: Tubing IV Secondary IV ONE ×2 (17:44→22:31)
[2016-06-12] MEDS ORDERED: D5 1/2NS 1000ml IV ONE (17:44)
[2016-06-12] MEDS ORDERED: DuoNeb 0.5-3(2.5)mg/3ml neb HHN PRN (17:45)
[2016-06-12] MEDS ORDERED: metroNIDAZOLE 500mg 100 ML IVPB SCH (18:00)
[2016-06-12 20:00] VITALS: BP 124/71
[2016-06-12 20:38] LABS: PATH BLOOD SMEAR/OMC SENT TO PATHOLOGIST
--- NOTE | 2016-06-12 22:29 | Consultation ---
DATE OF CONSULTATION: 06/12/2016 PAIN MANAGEMENT CONSULTATION CONSULTING PHYSICIAN: Stewart Art M.D. REFERRING PHYSICIAN: Franky Olvera D.O. CHIEF COMPLAINT: Abdominal pain, low back pain, and lower extremity pain. HISTORY OF PRESENT ILLNESS: This is a 40-year-old female, who is being seen on the [facility] for initial comprehensive pain management consultation. The patient reports that she has been having pain and lower extremity weakness and inability to ambulate since Monday of last week. It is a constant acute issue, which she states is 10/10; describing a stabbing, burning, and numbing pain; increasing with movement; and nothing has been helping to relieve the pain. The patient also has a history of morbid obesity, status post gastric sleeve, causing hidradenitis in her right armpit and also in her abdominal area. At this time, the patient is in bed, in no acute distress, reporting that she is again weak in her lower extremities, unable to ambulate. She was seen by neurologist who ordered MRI of the cervical, thoracic, and lumbar spine, pending results after it is done tomorrow. At this time, the patient is on morphine 2 mg IV every 4 hours for as needed for severe pain with minimal pain relief. We were consulted so that the patient would have adequate pain control while here in the hospital. PAST MEDICAL HISTORY: Morbid obesity and hydradenitis. PAST SURGICAL HISTORY: Gastric sleeve and drainage for the hidradenitis. SOCIAL HISTORY: Has a history of smoking. Drinks socially. Denies IV drug abuse. ALLERGIES: Ibuprofen and NSAIDS. REVIEW OF SYSTEMS: Denies rash, fever, chills, sweating, dizziness, drowsiness, blurred vision, sore throat, or change in her weight. No shortness of breath or chest pain. No nausea or vomiting at this time. No bowel or bladder incontinence. No dysuria. She is complaining of abdominal pain, back pain, right armpit pain, and lower extremity pain. PHYSICAL EXAMINATION: GENERAL: Alert, awake, and oriented x3. VITAL SIGNS: Blood pressure 138/88, heart rate is 96, oxygen saturation 100%, temperature is 99.1 degrees Fahrenheit. Height is 5 feet 8 inches and weight is 155 pounds. HEENT: PERRLA. NECK: Range of motion is full in all directions. No tenderness. No adenopathy. LUNGS: Clear. HEART: Regular. ABDOMEN: Tenderness to palpation. BACK: Range of motion is decreased in flexion and extension with tenderness to paraspinal muscles and trapezial muscles. EXTREMITIES: Upper extremity range of motion is full in all directions. Motor is intact. No cyanosis. No clubbing. No edema. Sensory is intact. Reflexes are unobtainable. There is no adenopathy. Lower extremity range of motion has decreased due to the patient's pain and condition with motor being 2/5 in all muscles bilaterally. No cyanosis. No clubbing. Sensory is reduced. Reflexes are unobtainable. No adenopathy. ASSESSMENT AND PLAN: This is a 40-year-old female with intractable pain, hydradenitis, lumbar degenerative disc disease, lower extremity weakness, morbid obesity, status post gastric sleeve surgery, and abdominal pain. The patient will be continued on morphine 2 mg IV every four hours as needed for severe pain. We will start the patient on [place] 10/325 mg one tablet every 4 hours as needed for moderate pain and Neurontin 200 mg tablets 3 times a day. The patient again is written for MRI of the cervical, thoracic, and lumbar spine. The patient was discussed with Dr. Art and Dr. Art concurred. We will follow the patient. Thank you very much for the courtesy of this consultation. Stewart Art M.D. JOSE Correa DR: MARILYNN JOB#: [id number] CC: RONDA
[2016-06-12] MEDS ORDERED: NS 275ml ONE (22:31)
--- NOTE | 2016-06-12 23:00 | Consultation ---
DATE OF CONSULTATION: 06/12/2016 HEMATOLOGY/ONCOLOGY CONSULTATION: REQUESTING PHYSICIAN: Franky Olvera D.O. REASON FOR CONSULTATION: Evaluation of leukopenia, thrombocytopenia, and anemia. IDENTIFICATION: Dear Dr. Franky Olvera, The patient is a pleasant 40-year-old female with past medical history significant for hydradenitis. At this time, presents for nausea and vomiting that has been ongoing for several days. The patient was noted to have white count, which was elevated, felt weak, admitted to ICU for further evaluation and care. She was found to be septic. The patient was found have thrombocytopenia as well. Upon presentation with with microcytosis, hematology service was consulted for further evaluation and treatment. PAST MEDICAL HISTORY: Lower extremity weakness, abdominal pain history, and hydradenitis. PAST SURGICAL HISTORY: Weight loss surgery. MEDICATIONS: Benadryl, heparin, vancomycin . ALLERGIES: NSAIDs. SOCIAL HISTORY: No alcohol, tobacco, or illicit drug use. FAMILY HISTORY: Noncontributory. REVIEW OF SYSTEMS: Constitutional: No fever, chills, or night sweats. Skin: No rashes, lumps, or itching. HEENT: No headache or vision changes. Breasts: No lumps, pain, or discharge. Pulmonary: No cough, sputum, or shortness of breath. Cardiovascular: No chest pain, tightness, or palpitations. Gastrointestinal: No nausea, vomiting, or diarrhea. Genitourinary: No dysuria, frequency, or urgency. Musculoskeletal: No joint swelling, muscle pain, or trauma. PHYSICAL EXAMINATION: GENERAL: The patient is in no acute distress. VITAL SIGNS: Temperature 97.7 degrees Fahrenheit , pulse 96, respiratory rate 12, blood pressure 130/80, and pulse oximetry 97% on room air. PULMONARY: Decreased breath sounds. CARDIOVASCULAR: Regular rate and rhythm. ABDOMEN: Soft, nontender, and nondistended. EXTREMITIES: A 1+ edema. LABORATORY AND DIAGNOSTIC DATA: alkaline phosphatase 81. Albumin 2.7. TSH 5.4. WBC , hemoglobin 8.5, hematocrit 26, MCV 118 markedly elevated. BUN 6 and creatinine 0.8. INR 1.1. Imaging, ultrasound of the abdomen showed no evidence of gallstones or hepatosplenomegaly or infiltration. CAT scan of the abdomen and pelvis today showed no acute abnormalities . ASSESSMENT: 1. Anemia secondary to chronic disease. 2. Decreased hemoglobin and hematocrit, rule out gastrointestinal bleed. 3. Leukopenia, possibly secondary to sepsis. 4. Thrombocytopenia, potentially secondary to underlying sepsis medications . The patient is currently on subcutaneous heparin. 5. Abdominal pain. 6. Acute alcohol intoxication. 7. Urinary tract infection . RECOMMENDATIONS: 1. Monitor counts . 2. Transfuse hemoglobin goal of 7. 3. Transfuse of platelets goal of above 20,000. 4. The patient currently not using alcohol . 5. Alcohol cessation therapy. 6. Follow up on pain management, Pulmonary, ID, and Cardiology recommendations . 7. Obtain full . 8. Obtain vanc and levels . 9. Neurology evaluation . 10. Consider bone marrow biopsy for evaluation of microcytosis. 11. We will send for homocysteine MMA levels. Thank you, Dr. Franky Olvera, for this kind referral. Please do not hesitate to contact me if you have any further questions. Stephon Fontenot M.D. DR: Nelly JOB#: [id number] CC:
[2016-06-13 00:59] VITALS: BP 120/69
[2016-06-13] MEDS: Morphine Sulfate 2mg/ml Inj IVP PRN ×5 (03:29→23:43)
[2016-06-13] MEDS: Vancomycin 1 GM in D5W 275 ML IVPB SCH ×2 (03:52→16:00)
[2016-06-13 04:05] VITALS: BP 100/74
[2016-06-13] MEDS: DiphenhydrAMINE 50mg/ml Inj IVP PRN ×3 (05:14→18:51)
[2016-06-13] MEDS: chlordiazePOXIDE 25mg Cap ORAL PRN ×2 (05:15→11:50)
[2016-06-13] MEDS: Cefepime HCl 2 GM in D5W 110 ML IV SCH ×2 (05:30→18:50)
[2016-06-13] MEDS: metroNIDAZOLE 500mg 100 ML IVPB SCH ×3 (06:11→21:44)
[2016-06-13 07:30] LABS: ALANINE AMINOTRANSFERASE 46 U/L (3-33); ALBUMIN/GLOBULIN RATIO 0.6 (1.0-2.7); ANION GAP 13 (5-15); ASPARTATE AMINO TRANSFERASE 102 U/L (5-40); CALCIUM 7.7 mg/dL (8.6-10.2); CARBON DIOXIDE 24 mEQ/L (20-30); CHLORIDE 98 mEQ/L (98-107); CREATININE 0.8 mg/dL (0.5-0.9); CRP QUANT 1.9 mg/dL (< 0.5); GLOMERULAR FILTRATION RATE > 60 mL/min (>60); HEMOLYSIS 3; MAGNESIUM 1.9 mg/dL (1.7-2.5); PHOSPHORUS 2.3 mg/dL (2.5-4.8); POTASSIUM 3.8 mEQ/L (3.4-4.9); SODIUM 135 mEQ/L (135-145); TOTAL PROTEIN 6.4 g/dL (6.6-8.7)
[2016-06-13 07:38] LABS: MEAN CORPUSCULAR HEMOGLOBIN 37.4 PG (27.0-31.0); MEAN CORPUSCULAR HGB CONC 32.2 G/DL (32.0-36.0); MEAN CORPUSCULAR VOLUME 116 FL (80-99); MEAN PLATELET VOLUME 5.7 FL (6.5-10.1); PLATELET COUNT 117 K/UL (150-450); RED BLOOD COUNT 2.14 M/UL (4.20-5.40); WHITE BLOOD COUNT 3.7 K/UL (4.8-10.8)
[2016-06-13 07:45] VITALS: BP 124/72
[2016-06-13 07:46] LABS: HEMOGLOBIN A1C 4.7 % (< 6.0)
[2016-06-13] MEDS: Heparin 5000 units/ml inj SUBQ SCH ×2 (08:28→21:00)
--- NOTE | 2016-06-13 08:42 | General Progress Note ---
Assessment/Plan Assessment/Plan (1) Intractable pain (2) Hydradenitis (4) Lumbar DDD (5) Lumbar Spondylosis (6) Morbid obesity S/p gastric sleeve surgery (7) Abdominal pain The patient will be continued on morphine, [place] and Neurontin. MRI of the cervical, thoracic, and lumbar spine results pending. The patient was discussed with Dr. Art and Dr. Art concurred. Subjective Date patient seen: Jun 13, 2016 Time patient seen: 08:30 - am Allergies: Coded Allergies: IBUPROFEN (Verified Allergy, Severe, Anaphylaxis, 06/12/16) swollen face and lips NSAIDS (NON-STEROIDAL ANTI-INFLAMMA (Verified Allergy, Severe, Anaphylaxis , 06/12/16) swollen face and lips Uncoded Allergies: NSAIDS include Ibuprofen (Adverse Reaction, Severe, Anaphylaxis, 06/11/16) Swollen face and lip Subjective REVIEW OF SYSTEMS: Denies rash, fever, chills, sweating, dizziness, drowsiness, blurred vision, sore throat, or change in her weight. No shortness of breath or chest pain. No nausea or vomiting at this time. No bowel or bladder incontinence. No dysuria. She is complaining of abdominal pain, back pain, right armpit pain, and lower extremity pain. SUBJECTIVE: Pain is a 4/10 on the medications, MRIs are pending. Objective Last 24 Hour Vital Signs Date Time Temp Pulse Resp B/P Pulse Ox O2 Delivery O2 Flow Rate FiO2 06/13/16 07:45 100.2 110 18 124/72 96 Room Air 06/13/16 04:05 98.8 133 20 100/74 95 Room Air 06/13/16 03:55 120 06/13/16 00:59 98.8 131 22 120/69 99 Room Air 06/13/16 00:13 112 06/12/16 20:00 110 06/12/16 20:00 97.3 115 18 124/71 100 Room Air 06/12/16 19:27 129 20 Room Air 06/12/16 16:10 99.5 98 18 136/91 99 Room Air 06/12/16 16:00 97 06/12/16 13:09 97.7 06/12/16 12:00 105 06/12/16 12:00 98.1 99 21 133/84 99 Room Air Intake and Output 06/12/16 06/13/16 19:00 07:00 Intake Total 300 ml 1595.000 ml Balance 300 ml 1595.000 ml Intake Oral 300 ml 500 ml IV Total 1095.000 ml # Voids 2 5 Laboratory Tests 06/13/16 05:40: White Blood Count 3.7L, Red Blood Count 2.14L, Hemoglobin 8.0L, Hematocrit 24.9L , Mean Corpuscular Volume 116H, Mean Corpuscular Hemoglobin 37.4H, Mean Corpuscular Hemoglobin Concent 32.2, Red Cell Distribution Width 19.0H, Platelet Count 117L, Mean Platelet Volume 5.7L, Neutrophils (%) (Auto) , Lymphocytes (%) (Auto) , Monocytes (%) (Auto) , Eosinophils (%) (Auto) , Basophils (%) (Auto) , Neutrophils % (Manual) [Pending], Lymphocytes % (Manual) [Pending], Platelet Estimate [Pending], Platelet Morphology [Pending], Sodium Level 135, Potassium Level 3.8, Chloride Level 98, Carbon Dioxide Level 24, Anion Gap 13, Blood Urea Nitrogen 6L, Creatinine 0.8, Estimat Glomerular Filtration Rate > 60, Glucose Level 86, Hemoglobin A1c 4.7, Uric Acid 3.0, Calcium Level 7.7L, Phosphorus Level 2.3L, Magnesium Level 1.9, Total Bilirubin 0.4, Gamma Glutamyl Transpeptidase 85H, Aspartate Amino Transf (AST/SGOT) 102H, Alanine Aminotransferase (ALT/SGPT) 46H, Alkaline Phosphatase 76, Total Creatine Kinase 230H, C-Reactive Protein, Quantitative 1.9H, Total Protein 6.4L , Albumin 2.6L, Globulin 3.8, Albumin/Globulin Ratio 0.6L, Lipase 176H Height (Feet): 5 Height (Inches): 8.00 Weight (Pounds): 145 Objective PHYSICAL EXAMINATION: GENERAL: Alert, awake, and oriented x3. HEENT: PERRLA. NECK: Range of motion is full in all directions. No tenderness. No adenopathy. LUNGS: Clear. HEART: Regular. ABDOMEN: Tenderness to palpation. BACK: Range of motion is decreased in flexion and extension with tenderness to paraspinal muscles and trapezial muscles. EXTREMITIES: Motor is intact. No cyanosis. No clubbing. NEURO: No changes. OMARI LUA Jun 13, 2016 08:42
--- NOTE | 2016-06-13 10:06 | Diagnostic Imaging Report ---
Indication: Weakness, inability to move lower leg Technique: Sagittal T1 and T2 fast spin echo, sagittal STIR, axial T2 fast spin-echo images of the lumbar spine. No further sequences, including axial T1, postcontrast sequences, nor entire requested thoracic spine study could be performed, as patient was claustrophobic despite sedation Comparison: None Findings: The vertebral body heights are preserved. Bony alignment is normal. There is very slight narrowing of the L5-S1 disc, better appreciated on recent CT scan, and slight Modic type fatty marrow changes of the inferior L5 vertebral body. The remainder of the disc spaces are preserved. The remainder the vertebral body marrow signal is normal. There is evidence of disc desiccation at L3-4, L4-5, and L5-S1. Normal signal is seen centrally within the upper lumbar discs. There is mild circumferential annular bulge of the L5 disc, with posterior central disc protrusion more focally. This does not appear to safely narrow the spinal canal. There does appear to be mild narrowing of the bilateral neural foramina as a result, worse on the left than on the right. At the other levels, no significant disc bulge or protrusion, spinal stenosis, or neural foraminal narrowing. There is prominent epidural fat posterior to the lower lumbar vertebral bodies. This does not appear to significantly narrow the spinal canal or impinge upon the nerve roots The included extraspinal soft tissues are unremarkable. Impression: Limited exam, as described Mild disc degeneration at L5-S1, with slight circumferential annular bulge, posterior central disc protrusion, resulting in mild narrowing of the bilateral neural foramina No other evidence of significant neural impingement or acute or significant pathology
[2016-06-13 10:39] LABS: ANISOCYTOSIS 2+; BAND NEUTROPHILS % (MANUAL) 0 % (0-8); BASOPHILS % (MANUAL) 0 % (0-2); EOSINOPHILS % (MANUAL) 1 % (0-3); HYPOCHROMASIA 3+; LYMPHOCYTES % (MANUAL) 11 % (20-45); NEUTROPHILS % (MANUAL) 79 % (45-75); PLATELET ESTIMATE DECREASED; PLATELET MORPHOLOGY NORMAL; TOTAL CELLS COUNTED 100
--- NOTE | 2016-06-13 10:55 | General Progress Note ---
Assessment/Plan Assessment/Plan ASSESSMENT: 1. Anemia secondary to chronic disease. 2. Decreased hemoglobin and hematocrit, rule out gastrointestinal bleed. 3. Leukopenia, possibly secondary to sepsis. 4. Thrombocytopenia, potentially secondary to underlying sepsis v medications 5. Abdominal pain. 6. Acute alcohol intoxication. 7. Urinary tract infection . RECOMMENDATIONS: 1. Monitor counts . 2. Transfuse hemoglobin goal> 7. 3. Transfuse of platelets goal > 20,000. 4. The patient currently not using alcohol at this time 5. Alcohol cessation therapy. 6. Follow up on pain management, Pulmonary, ID, and Cardiology recs 7. Followup on anemia w/u 8. Neurology evaluation/recs 9. Consider bone marrow biopsy for evaluation of unexplained macrocytosis 10. Followup homocysteine MMA levels. Thank you, Stephon Fontenot MD Subjective Constitutional: Reports: no symptoms HEENT: Reports: no symptoms Cardiovascular: Reports: no symptoms Respiratory: Reports: no symptoms Gastrointestinal/Abdominal: Reports: no symptoms Genitourinary: Reports: no symptoms Neurologic/Psychiatric: Reports: anxiety Endocrine: Reports: no symptoms Hematologic/Lymphatic: Reports: anemia Allergies: Coded Allergies: IBUPROFEN (Verified Allergy, Severe, Anaphylaxis, 06/12/16) swollen face and lips NSAIDS (NON-STEROIDAL ANTI-INFLAMMA (Verified Allergy, Severe, Anaphylaxis , 06/12/16) swollen face and lips Uncoded Allergies: NSAIDS include Ibuprofen (Adverse Reaction, Severe, Anaphylaxis, 06/11/16) Swollen face and lip Subjective stable, no fevers, not bleeding, no complaints Objective Last 24 Hour Vital Signs Date Time Temp Pulse Resp B/P Pulse Ox O2 Delivery O2 Flow Rate FiO2 06/13/16 09:26 99.3 06/13/16 08:00 108 06/13/16 07:45 100.2 110 18 124/72 96 Room Air 06/13/16 06:30 106 16 Room Air 2.0 21 06/13/16 04:05 98.8 133 20 100/74 95 Room Air 06/13/16 03:55 120 06/13/16 00:59 98.8 131 22 120/69 99 Room Air 06/13/16 00:13 112 06/12/16 20:00 110 06/12/16 20:00 97.3 115 18 124/71 100 Room Air 06/12/16 19:27 129 20 Room Air 06/12/16 16:10 99.5 98 18 136/91 99 Room Air 06/12/16 16:00 97 06/12/16 13:09 97.7 06/12/16 12:00 105 06/12/16 12:00 98.1 99 21 133/84 99 Room Air Intake and Output 06/12/16 06/13/16 19:00 07:00 Intake Total 300 ml 1595.000 ml Balance 300 ml 1595.000 ml Intake Oral 300 ml 500 ml IV Total 1095.000 ml # Voids 2 5 Laboratory Tests 06/13/16 05:40: White Blood Count 3.7L, Red Blood Count 2.14L, Hemoglobin 8.0L, Hematocrit 24.9L , Mean Corpuscular Volume 116H, Mean Corpuscular Hemoglobin 37.4H, Mean Corpuscular Hemoglobin Concent 32.2, Red Cell Distribution Width 19.0H, Platelet Count 117L, Mean Platelet Volume 5.7L, Neutrophils (%) (Auto) , Lymphocytes (%) (Auto) , Monocytes (%) (Auto) , Eosinophils (%) (Auto) , Basophils (%) (Auto) , Differential Total Cells Counted 100, Neutrophils % ( Manual) 79H, Lymphocytes % (Manual) 11L, Monocytes % (Manual) 9, Eosinophils % ( Manual) 1, Basophils % (Manual) 0, Band Neutrophils 0, Platelet Estimate DecreasedL, Platelet Morphology Normal, Hypochromasia 3+, Anisocytosis 2+, Sodium Level 135, Potassium Level 3.8, Chloride Level 98, Carbon Dioxide Level 24, Anion Gap 13, Blood Urea Nitrogen 6L, Creatinine 0.8, Estimat Glomerular Filtration Rate > 60, Glucose Level 86, Hemoglobin A1c 4.7, Uric Acid 3.0, Calcium Level 7.7L, Phosphorus Level 2.3L, Magnesium Level 1.9, Total Bilirubin 0.4, Gamma Glutamyl Transpeptidase 85H, Aspartate Amino Transf (AST/SGOT) 102H, Alanine Aminotransferase (ALT/SGPT) 46H, Alkaline Phosphatase 76, Total Creatine Kinase 230H, C-Reactive Protein, Quantitative 1.9H, Total Protein 6.4L , Albumin 2.6L, Globulin 3.8, Albumin/Globulin Ratio 0.6L, Lipase 176H Height (Feet): 5 Height (Inches): 8.00 Weight (Pounds): 145 General Appearance: no apparent distress EENT: TMs normal Neck: supple Cardiovascular: regular rhythm Respiratory/Chest: lungs clear Abdomen: non tender Extremities: non-tender Edema: 1+ Leg (L), 1+ Leg (R) Edema: mild edema Neurologic: alert Skin: warm/dry Setphon Fontenot Jun 13, 2016 10:55
[2016-06-13 11:22] VITALS: BP 121/71
--- NOTE | 2016-06-13 11:23 | General Progress Note ---
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 compression r/o GBS Plan: K supplements- Per consultants- monitor renal parameters and electrolytes- not much to add from renal stand point Subjective Allergies: Coded Allergies: IBUPROFEN (Verified Allergy, Severe, Anaphylaxis, 06/12/16) swollen face and lips NSAIDS (NON-STEROIDAL ANTI-INFLAMMA (Verified Allergy, Severe, Anaphylaxis , 06/12/16) swollen face and lips Uncoded Allergies: NSAIDS include Ibuprofen (Adverse Reaction, Severe, Anaphylaxis, 06/11/16) Swollen face and lip Objective Last 24 Hour Vital Signs Date Time Temp Pulse Resp B/P Pulse Ox O2 Delivery O2 Flow Rate FiO2 06/13/16 09:26 99.3 06/13/16 08:00 108 06/13/16 07:45 100.2 110 18 124/72 96 Room Air 06/13/16 06:30 106 16 Room Air 2.0 21 06/13/16 04:05 98.8 133 20 100/74 95 Room Air 06/13/16 03:55 120 06/13/16 00:59 98.8 131 22 120/69 99 Room Air 06/13/16 00:13 112 06/12/16 20:00 110 06/12/16 20:00 97.3 115 18 124/71 100 Room Air 06/12/16 19:27 129 20 Room Air 06/12/16 16:10 99.5 98 18 136/91 99 Room Air 06/12/16 16:00 97 06/12/16 13:09 97.7 06/12/16 12:00 105 06/12/16 12:00 98.1 99 21 133/84 99 Room Air Intake and Output 06/12/16 06/13/16 19:00 07:00 Intake Total 300 ml 1595.000 ml Balance 300 ml 1595.000 ml Intake Oral 300 ml 500 ml IV Total 1095.000 ml # Voids 2 5 Laboratory Tests 06/13/16 05:40: White Blood Count 3.7L, Red Blood Count 2.14L, Hemoglobin 8.0L, Hematocrit 24.9L , Mean Corpuscular Volume 116H, Mean Corpuscular Hemoglobin 37.4H, Mean Corpuscular Hemoglobin Concent 32.2, Red Cell Distribution Width 19.0H, Platelet Count 117L, Mean Platelet Volume 5.7L, Neutrophils (%) (Auto) , Lymphocytes (%) (Auto) , Monocytes (%) (Auto) , Eosinophils (%) (Auto) , Basophils (%) (Auto) , Differential Total Cells Counted 100, Neutrophils % ( Manual) 79H, Lymphocytes % (Manual) 11L, Monocytes % (Manual) 9, Eosinophils % ( Manual) 1, Basophils % (Manual) 0, Band Neutrophils 0, Platelet Estimate DecreasedL, Platelet Morphology Normal, Hypochromasia 3+, Anisocytosis 2+, Sodium Level 135, Potassium Level 3.8, Chloride Level 98, Carbon Dioxide Level 24, Anion Gap 13, Blood Urea Nitrogen 6L, Creatinine 0.8, Estimat Glomerular Filtration Rate > 60, Glucose Level 86, Hemoglobin A1c 4.7, Uric Acid 3.0, Calcium Level 7.7L, Phosphorus Level 2.3L, Magnesium Level 1.9, Total Bilirubin 0.4, Gamma Glutamyl Transpeptidase 85H, Aspartate Amino Transf (AST/SGOT) 102H, Alanine Aminotransferase (ALT/SGPT) 46H, Alkaline Phosphatase 76, Total Creatine Kinase 230H, C-Reactive Protein, Quantitative 1.9H, Total Protein 6.4L , Albumin 2.6L, Globulin 3.8, Albumin/Globulin Ratio 0.6L, Lipase 176H, Hepatitis A IgM Antibody [Pending], Hepatitis B Surface Antigen [Pending], Hepatitis B Core IgM Antibody [Pending], Hepatitis C Antibody [Pending], HIV (1& 2) Antibody Rapid [Pending] Height (Feet): 5 Height (Inches): 8.00 Weight (Pounds): 145 General Appearance: no apparent distress Cardiovascular: regular rhythm Respiratory/Chest: decreased breath sounds Abdomen: tender - - mild generalized ROSA COYLE Jun 13, 2016 11:23
[2016-06-13] MEDS: Thiamine HCl 100 MG in D5W 55 ML IVPB SCH (11:47)
[2016-06-13] MEDS: Folic Acid 1 MG, Magnesium Sulfate 2,000 MG, Multivitamin - 12 Injection 10 ML in NS w/... IV SCH (11:47)
--- NOTE | 2016-06-13 11:59 | Neurology Progress Note ---
Interim History Interim History ROS Limited/Unobtainable: No Complaints: ache both thighs numb midabdomen down, Events: stable more mobile Objective Physical Exam Last Vital Signs Date Time Temp Pulse Resp B/P Pulse Ox O2 Delivery O2 Flow Rate FiO2 06/13/16 11:22 98.2 104 18 121/71 99 Room Air 06/13/16 06:30 2.0 21 Laboratory Tests Test 06/13/16 05:40 White Blood Count 3.7 K/UL (4.8-10.8) L Red Blood Count 2.14 M/UL (4.20-5.40) L Hemoglobin 8.0 G/DL (12.0-16.0) L Hematocrit 24.9 % (37.0-47.0) L Mean Corpuscular Volume 116 FL (80-99) H Mean Corpuscular Hemoglobin 37.4 PG (27.0-31.0) H Mean Corpuscular Hemoglobin Concent 32.2 G/DL (32.0-36.0) Red Cell Distribution Width 19.0 % (11.6-14.8) H Platelet Count 117 K/UL (150-450) L Mean Platelet Volume 5.7 FL (6.5-10.1) L Neutrophils (%) (Auto) % (45.0-75.0) Lymphocytes (%) (Auto) % (20.0-45.0) Monocytes (%) (Auto) % (1.0-10.0) Eosinophils (%) (Auto) % (0.0-3.0) Basophils (%) (Auto) % (0.0-2.0) Differential Total Cells Counted 100 Neutrophils % (Manual) 79 % (45-75) H Lymphocytes % (Manual) 11 % (20-45) L Monocytes % (Manual) 9 % (1-10) Eosinophils % (Manual) 1 % (0-3) Basophils % (Manual) 0 % (0-2) Band Neutrophils 0 % (0-8) Platelet Estimate Decreased L Platelet Morphology Normal Hypochromasia 3+ Anisocytosis 2+ Sodium Level 135 mEQ/L (135-145) Potassium Level 3.8 mEQ/L (3.4-4.9) Chloride Level 98 mEQ/L (98-107) Carbon Dioxide Level 24 mEQ/L (20-30) Anion Gap 13 (5-15) Blood Urea Nitrogen 6 mg/dL (7-23) L Creatinine 0.8 mg/dL (0.5-0.9) Estimat Glomerular Filtration Rate > 60 mL/min (>60) Glucose Level 86 mg/dL (74-106) Hemoglobin A1c 4.7 % (< 6.0) Uric Acid 3.0 mg/dL (3.0-7.5) Calcium Level 7.7 mg/dL (8.6-10.2) L Phosphorus Level 2.3 mg/dL (2.5-4.8) L Magnesium Level 1.9 mg/dL (1.7-2.5) Total Bilirubin 0.4 mg/dL (0.0-1.2) Gamma Glutamyl Transpeptidase 85 U/L (5-36) H Aspartate Amino Transf (AST/SGOT) 102 U/L (5-40) H Alanine Aminotransferase (ALT/SGPT) 46 U/L (3-33) H Alkaline Phosphatase 76 U/L (35-104) Total Creatine Kinase 230 U/L (26-140) H C-Reactive Protein, Quantitative 1.9 mg/dL (< 0.5) H Total Protein 6.4 g/dL (6.6-8.7) L Albumin 2.6 g/dL (3.5-5.2) L Globulin 3.8 g/dL Albumin/Globulin Ratio 0.6 (1.0-2.7) L Lipase 176 U/L (< 60) H Hepatitis A IgM Antibody Pending Hepatitis B Surface Antigen Pending Hepatitis B Core IgM Antibody Pending Hepatitis C Antibody Pending HIV (1&2) Antibody Rapid Negative (NEGATIVE) General: well developed, no acute distress, other - obese tender both thighs, numb groin area Head: normocophalic, atraumatic Neck: no rigidity Neurologic Exam Mental Status: awake, alert, oriented x4, normal cognition, good mathematical skills, normal recent memory, normal remote memory, other - very anxious Speech: normal speech, no dysarthia Language: normal language, no aphasia Cranial Nerve II: fundus normal, visual vargas, no papilledema Cranial Nerves III, IV, : PERRLA, EOMI, pupils Cranial Nerve V: normal facial sensations, temporales function normal, masseters function normal, pterygoids function normal Cranial Nerve VII: no facial asymmetry, normal facial expressions Cranial Nerve VIII: normal hearing, no nystagmus Cranial Nerve IX: normal palate elevation, gag response Cranial Nerve X: no voice hoarseness Cranial Nerve XI: SCM symmetric, trapezii function normal Cranial Nerve XII: tongue midline, no tongue atrophy/fasciculations Motor System: other - 3/5 hip R hipflexor +2/5 L hipflexor, 4/5 R hamstring -4/ 5 L hamstring,L foot dorsifexion, tender hips Sensory: other - sensory loss T8 down Coordination: other Deep Tendon Reflexes: 0 bicep (R), 0 brachioradialis (R), 0 tricep (R), 1+ ankle (L), 1+ bicep (L), 1+ brachioradialis (L), 1+ knee (L), 1+ tricep (L) Reflexes: mute plantar (L), mute plantar (R) Stance: other - standing with assist " i feel going to fall" Impression/Recommendations Problems: (1) Ascending paraparesis,r/o spinal cotd compression r/o GBS (2) Hydradenitis (3) Severe anemia (4) Anxiety (5) UTI (urinary tract infection) Status: unchanged Recommendations #[id number] MRI pending C and T spine MRI L spine noted pt/ot DON DAWN Jun 13, 2016 11:59
[2016-06-13] MEDS ORDERED: LORazepam Inj 2mg/ml 1ml IV PRN ×2 (12:45)
--- NOTE | 2016-06-13 13:29 | General Progress Note ---
Assessment/Plan Problem List: (1) Abdominal pain ICD Codes: R10.9 - Unspecified abdominal pain SNOMED: 57292996 (2) Pancytopenia ICD Codes: D61.818 - Other pancytopenia SNOMED: 732195933 (3) Weak ICD Codes: R53.1 - Weakness SNOMED: 67295545 (4) UTI (urinary tract infection) ICD Codes: N39.0 - Urinary tract infection, site not specified SNOMED: 47855971 (5) Acidosis ICD Codes: E87.2 - Acidosis SNOMED: 22800772 Status: stable, progressing, tolerating diet Assessment/Plan ot pt diet abx hem eval cbc bmp am promise ltach eval Subjective Constitutional: Reports: weakness Allergies: Coded Allergies: IBUPROFEN (Verified Allergy, Severe, Anaphylaxis, 06/12/16) swollen face and lips NSAIDS (NON-STEROIDAL ANTI-INFLAMMA (Verified Allergy, Severe, Anaphylaxis , 06/12/16) swollen face and lips Uncoded Allergies: NSAIDS include Ibuprofen (Adverse Reaction, Severe, Anaphylaxis, 06/11/16) Swollen face and lip All Systems: reviewed and negative except above Subjective calm in bed Objective Last 24 Hour Vital Signs Date Time Temp Pulse Resp B/P Pulse Ox O2 Delivery O2 Flow Rate FiO2 06/13/16 11:22 98.2 104 18 121/71 99 Room Air 06/13/16 09:26 99.3 06/13/16 08:00 108 06/13/16 07:45 100.2 110 18 124/72 96 Room Air 06/13/16 06:30 106 16 Room Air 2.0 21 06/13/16 04:05 98.8 133 20 100/74 95 Room Air 06/13/16 03:55 120 06/13/16 00:59 98.8 131 22 120/69 99 Room Air 06/13/16 00:13 112 06/12/16 20:00 110 06/12/16 20:00 97.3 115 18 124/71 100 Room Air 06/12/16 19:27 129 20 Room Air 06/12/16 16:10 99.5 98 18 136/91 99 Room Air 06/12/16 16:00 97 Intake and Output 06/12/16 06/13/16 18:59 06:59 Intake Total 300 ml 1595.000 ml Balance 300 ml 1595.000 ml Intake Oral 300 ml 500 ml IV Total 1095.000 ml # Voids 2 5 Laboratory Tests 06/13/16 05:40: White Blood Count 3.7L, Red Blood Count 2.14L, Hemoglobin 8.0L, Hematocrit 24.9L , Mean Corpuscular Volume 116H, Mean Corpuscular Hemoglobin 37.4H, Mean Corpuscular Hemoglobin Concent 32.2, Red Cell Distribution Width 19.0H, Platelet Count 117L, Mean Platelet Volume 5.7L, Neutrophils (%) (Auto) , Lymphocytes (%) (Auto) , Monocytes (%) (Auto) , Eosinophils (%) (Auto) , Basophils (%) (Auto) , Differential Total Cells Counted 100, Neutrophils % ( Manual) 79H, Lymphocytes % (Manual) 11L, Monocytes % (Manual) 9, Eosinophils % ( Manual) 1, Basophils % (Manual) 0, Band Neutrophils 0, Platelet Estimate DecreasedL, Platelet Morphology Normal, Hypochromasia 3+, Anisocytosis 2+, Sodium Level 135, Potassium Level 3.8, Chloride Level 98, Carbon Dioxide Level 24, Anion Gap 13, Blood Urea Nitrogen 6L, Creatinine 0.8, Estimat Glomerular Filtration Rate > 60, Glucose Level 86, Hemoglobin A1c 4.7, Uric Acid 3.0, Calcium Level 7.7L, Phosphorus Level 2.3L, Magnesium Level 1.9, Total Bilirubin 0.4, Gamma Glutamyl Transpeptidase 85H, Aspartate Amino Transf (AST/SGOT) 102H, Alanine Aminotransferase (ALT/SGPT) 46H, Alkaline Phosphatase 76, Total Creatine Kinase 230H, C-Reactive Protein, Quantitative 1.9H, Total Protein 6.4L , Albumin 2.6L, Globulin 3.8, Albumin/Globulin Ratio 0.6L, Lipase 176H, Hepatitis A IgM Antibody [Pending], Hepatitis B Surface Antigen [Pending], Hepatitis B Core IgM Antibody [Pending], Hepatitis C Antibody [Pending], HIV (1& 2) Antibody Rapid Negative Height (Feet): 5 Height (Inches): 8.00 Weight (Pounds): 145 General Appearance: alert EENT: normal ENT inspection Neck: normal alignment Cardiovascular: normal peripheral pulses, normal rate, regular rhythm Respiratory/Chest: chest wall non-tender, lungs clear, normal breath sounds Abdomen: normal bowel sounds, non tender, soft Extremities: normal inspection Edema: no edema noted Arm (L), no edema noted Arm (R), no edema noted Leg (L), no edema noted Leg (R), no edema noted Pedal (L), no edema noted Pedal (R), no edema noted Generalized Neurologic: responsive, motor weakness Skin: normal pigmentation, warm/dry PIETER GAUTHIER Jun 13, 2016 13:29
--- NOTE | 2016-06-13 13:34 | Pulmonology Progress Note ---
Assessment/Plan Problems: (1) Sepsis (2) Abdominal pain (3) Severe anemia (4) Acute alcohol intoxication (5) UTI (urinary tract infection) Assessment/Plan iv hydration. Banana bag advance diet check cultures continue antibiotics still has episodes of tachycardia, ? etiology. Subjective ROS Limited/Unobtainable: No Interval Events: no new complains Allergies: Coded Allergies: IBUPROFEN (Verified Allergy, Severe, Anaphylaxis, 06/12/16) swollen face and lips NSAIDS (NON-STEROIDAL ANTI-INFLAMMA (Verified Allergy, Severe, Anaphylaxis , 06/12/16) swollen face and lips Uncoded Allergies: NSAIDS include Ibuprofen (Adverse Reaction, Severe, Anaphylaxis, 06/11/16) Swollen face and lip Objective Last 24 Hour Vital Signs Date Time Temp Pulse Resp B/P Pulse Ox O2 Delivery O2 Flow Rate FiO2 06/13/16 11:22 98.2 104 18 121/71 99 Room Air 06/13/16 09:26 99.3 06/13/16 08:00 108 06/13/16 07:45 100.2 110 18 124/72 96 Room Air 06/13/16 06:30 106 16 Room Air 2.0 21 06/13/16 04:05 98.8 133 20 100/74 95 Room Air 06/13/16 03:55 120 06/13/16 00:59 98.8 131 22 120/69 99 Room Air 06/13/16 00:13 112 06/12/16 20:00 110 06/12/16 20:00 97.3 115 18 124/71 100 Room Air 06/12/16 19:27 129 20 Room Air 06/12/16 16:10 99.5 98 18 136/91 99 Room Air 06/12/16 16:00 97 Intake and Output 06/12/16 06/13/16 19:00 07:00 Intake Total 300 ml 1595.000 ml Balance 300 ml 1595.000 ml Intake Oral 300 ml 500 ml IV Total 1095.000 ml # Voids 2 5 General Appearance: WD/WN HEENT: normocephalic, atraumatic Respiratory/Chest: chest wall non-tender, lungs clear Breasts: no masses Cardiovascular: normal peripheral pulses Abdomen: normal bowel sounds, soft, non tender Genitourinary: normal external genitalia Extremities: no cyanosis Skin: no rash 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 Complete 06/10/16 14:20 Rectum VRE Culture - Final NO VANCOMYCIN RESISTANT ENTEROCOCCUS ... Complete Laboratory Tests 06/13/16 05:40: White Blood Count 3.7L, Red Blood Count 2.14L, Hemoglobin 8.0L, Hematocrit 24.9L , Mean Corpuscular Volume 116H, Mean Corpuscular Hemoglobin 37.4H, Mean Corpuscular Hemoglobin Concent 32.2, Red Cell Distribution Width 19.0H, Platelet Count 117L, Mean Platelet Volume 5.7L, Neutrophils (%) (Auto) , Lymphocytes (%) (Auto) , Monocytes (%) (Auto) , Eosinophils (%) (Auto) , Basophils (%) (Auto) , Differential Total Cells Counted 100, Neutrophils % ( Manual) 79H, Lymphocytes % (Manual) 11L, Monocytes % (Manual) 9, Eosinophils % ( Manual) 1, Basophils % (Manual) 0, Band Neutrophils 0, Platelet Estimate DecreasedL, Platelet Morphology Normal, Hypochromasia 3+, Anisocytosis 2+, Sodium Level 135, Potassium Level 3.8, Chloride Level 98, Carbon Dioxide Level 24, Anion Gap 13, Blood Urea Nitrogen 6L, Creatinine 0.8, Estimat Glomerular Filtration Rate > 60, Glucose Level 86, Hemoglobin A1c 4.7, Uric Acid 3.0, Calcium Level 7.7L, Phosphorus Level 2.3L, Magnesium Level 1.9, Total Bilirubin 0.4, Gamma Glutamyl Transpeptidase 85H, Aspartate Amino Transf (AST/SGOT) 102H, Alanine Aminotransferase (ALT/SGPT) 46H, Alkaline Phosphatase 76, Total Creatine Kinase 230H, C-Reactive Protein, Quantitative 1.9H, Total Protein 6.4L , Albumin 2.6L, Globulin 3.8, Albumin/Globulin Ratio 0.6L, Lipase 176H, Hepatitis A IgM Antibody [Pending], Hepatitis B Surface Antigen [Pending], Hepatitis B Core IgM Antibody [Pending], Hepatitis C Antibody [Pending], HIV (1& 2) Antibody Rapid Negative Current Medications Medications (Trade) Dose Ordered Sig/Payam Route PRN Reason Start Time Stop Time Status Last Admin Dose Admin Acetaminophen (Tylenol) 650 mg Q4H PRN ORAL T>100.5 06/12/16 17:45 07/12/16 17:44 06/13/16 08:27 Acetaminophen/ Hydrocodone Bitart (Electra 10/325) 1 ea Q4H PRN ORAL moderate pain 06/12/16 18:45 06/19/16 18:44 Albuterol/ Ipratropium (DuoNeb 0.5-3(2.5)mg/3ml) 3 ml Q4H PRN HHN Shortness of Breath 06/12/16 17:45 06/17/16 17:44 Cefepime HCl 2 gm/ Dextrose 110 ml @ 220 mls/hr Q12HR@0500,1700 IV 06/12/16 17:00 06/19/16 16:59 06/13/16 05:30 Chlordiazepoxide (Librium) 25 mg Q6H PRN ORAL anxiety, tachycardia 06/12/16 21:45 06/19/16 21:44 06/13/16 11:50 Diphenhydramine HCl (Benadryl) 25 mg Q6H PRN IVP Itching 06/12/16 21:45 07/12/16 21:44 06/13/16 11:47 Folic Acid 1 mg/ Magnesium Sulfate 2000 mg/ Multivitamins 10 ml/Sodium Chloride 1,000 ml @ 125 mls/hr Q24H IV 06/13/16 12:00 07/13/16 11:59 06/13/16 11:47 Gabapentin (Neurontin) 300 mg THREE TIMES A DAY ORAL 06/12/16 18:00 07/12/16 17:59 06/13/16 13:17 Heparin Sodium (Porcine) (Heparin 5000 units/ml) 5,000 units EVERY 12 HOURS SUBQ 06/12/16 21:00 07/12/16 20:59 06/12/16 23:00 Lorazepam (Ativan 2mg/ml 1ml) 1 mg ONCE PRN IV Breakthrough agitation 06/13/16 12:45 06/13/16 20:00 Lorazepam (Ativan 2mg/ml 1ml) 2 mg ONCE PRN IV ANXIETY PRIOR TO MRI 06/13/16 12:45 06/13/16 20:00 06/13/16 13:18 Metronidazole (Flagyl) 100 ml @ 100 mls/hr Q8H IVPB 06/12/16 22:00 06/19/16 21:59 06/13/16 13:16 Morphine Sulfate (Morphine Sulfate) 2 mg Q4H PRN IVP PAIN 4-10 06/12/16 17:45 06/19/16 17:44 06/13/16 13:17 Nitroglycerin (Ntg) 0.4 mg Q5MIN X 3 DOSES PRN SL Prn Chest Pain 06/12/16 15:45 07/12/16 15:44 Ondansetron HCl (Zofran) 4 mg Q6H PRN IVP Nausea & Vomiting 06/12/16 19:45 07/12/16 19:44 06/13/16 11:48 Polyethylene Glycol (Miralax) 17 gm DAILYPRN PRN ORAL Constipation 06/13/16 13:45 07/13/16 13:44 Temazepam (Restoril) 15 mg HSPRN PRN ORAL Insomnia 06/12/16 21:00 06/19/16 20:59 06/12/16 21:50 Thiamine HCl 100 mg/Dextrose 56 ml @ 112 mls/hr Q24H IVPB 06/13/16 12:00 07/13/16 11:59 06/13/16 11:47 Vancomycin HCl 1 ea 1 ea DAILY PRN MISC . 06/13/16 09:00 07/13/16 08:59 Vancomycin HCl/ Dextrose (Vancomycin/D5W) 275 ml @ 183.708 mls/hr Q12HR@0400,1600 IVPB 06/12/16 16:00 06/17/16 15:59 06/13/16 03:52 DAVID CLARKE Jun 13, 2016 13:34
[2016-06-13] MEDS ORDERED: Miralax 17gm pkt ORAL PRN (13:45)
[2016-06-13 14:53] LABS: APPEARANCE,URINE SLIGHTLY CLOUDY; KETONES,URINE NEGATIVE (NEGATIVE); LEUKOCYTE ESTERASE ,URINE 3+ (NEGATIVE); NITRITE,URINE NEGATIVE (NEGATIVE); PH,URINE 7 (4.5-8.0); PROTEIN,URINE NEGATIVE (NEGATIVE); UROBILINOGEN,URINE NORMAL MG/DL (0.0-1.0)
[2016-06-13 15:05] LABS: BACTERIA,URINE FEW /HPF; SQUAMOUS EPITHELIAL CELL,UR FEW /LPF (NONE/OCC)
--- NOTE | 2016-06-13 16:10 | Infectious Diseases Prog Note ---
Assessment/Plan Problems: (1) Sepsis Assessment & Plan: continue wide spectrum antibiotics, follow culture (2) UTI (urinary tract infection) Assessment & Plan: on cefepime, await culture (3) Ovarian cyst Assessment & Plan: recommend transvaginal US and follow up with [employer] (4) Acute alcohol intoxication Assessment & Plan: needs counsling and rehabilitation, monitor in ICU, watch out for alcohol withdrawal. (5) Hydradenitis Assessment & Plan: on flagyl , cefepime and vancomycin empiric coverage, recommend general surgery eval for possible I&D, and send fluids for culture Subjective Constitutional: Reports: fever HEENT: Denies: congestion, coryza, dysphagia, hearing change, no symptoms, other, visual change Respiratory: Denies: dry cough, no symptoms, other, productive cough, shortness of breath Cardiovascular: Denies: chest pain, dyspnea on exertion, no symptoms, other, palpitations Gastrointestinal/Abdominal: Denies: bloating, blood in stool, constipation, diarrhea, nausea, no symptoms, other, vomiting Genitourinary: Denies: dysuria, frequency, hematuria, last menstrual period, no symptoms, nocturia, other, vaginal bleed/discharge Neurologic: Reports: numbness, weakness Psychiatric: Denies: anxiety, depression, no symptoms, other Skin: Reports: other - right armbit drainage Endocrine: Denies: feels cold, feels warm, no symptoms, other Allergies: Coded Allergies: IBUPROFEN (Verified Allergy, Severe, Anaphylaxis, 06/12/16) swollen face and lips NSAIDS (NON-STEROIDAL ANTI-INFLAMMA (Verified Allergy, Severe, Anaphylaxis , 06/12/16) swollen face and lips Uncoded Allergies: NSAIDS include Ibuprofen (Adverse Reaction, Severe, Anaphylaxis, 06/11/16) Swollen face and lip Objective Vital Signs Last 24 Hour Vital Signs Date Time Temp Pulse Resp B/P Pulse Ox O2 Delivery O2 Flow Rate FiO2 06/13/16 11:22 98.2 104 18 121/71 99 Room Air 06/13/16 09:26 99.3 06/13/16 08:00 108 06/13/16 07:45 100.2 110 18 124/72 96 Room Air 06/13/16 06:30 106 16 Room Air 2.0 21 06/13/16 04:05 98.8 133 20 100/74 95 Room Air 06/13/16 03:55 120 06/13/16 00:59 98.8 131 22 120/69 99 Room Air 06/13/16 00:13 112 06/12/16 20:00 110 06/12/16 20:00 97.3 115 18 124/71 100 Room Air 06/12/16 19:27 129 20 Room Air 06/12/16 16:10 99.5 98 18 136/91 99 Room Air Height (Feet): 5 Height (Inches): 8.00 Weight (Pounds): 145 General Appearance: WD/WN, no acute distress HEENT: normocephalic, atraumatic, anicteric, mucous membranes moist Respiratory/Chest: chest wall non-tender, lungs clear, normal breath sounds, no respiratory distress, no accessory muscle use Cardiovascular: normal peripheral pulses, normal rate, regular rhythm Abdomen: normal bowel sounds, soft, non tender, no organomegaly, non distended , no mass Extremities: no cyanosis, no clubbing Skin: no rash, no lesions, other - right hydradinitis Neurologic/Psychiatric: alert, oriented x 3, motor weakness, sensory deficit Laboratory Tests Test 06/13/16 05:40 06/13/16 14:30 White Blood Count 3.7 K/UL (4.8-10.8) L Red Blood Count 2.14 M/UL (4.20-5.40) L Hemoglobin 8.0 G/DL (12.0-16.0) L Hematocrit 24.9 % (37.0-47.0) L Mean Corpuscular Volume 116 FL (80-99) H Mean Corpuscular Hemoglobin 37.4 PG (27.0-31.0) H Mean Corpuscular Hemoglobin Concent 32.2 G/DL (32.0-36.0) Red Cell Distribution Width 19.0 % (11.6-14.8) H Platelet Count 117 K/UL (150-450) L Mean Platelet Volume 5.7 FL (6.5-10.1) L Neutrophils (%) (Auto) % (45.0-75.0) Lymphocytes (%) (Auto) % (20.0-45.0) Monocytes (%) (Auto) % (1.0-10.0) Eosinophils (%) (Auto) % (0.0-3.0) Basophils (%) (Auto) % (0.0-2.0) Differential Total Cells Counted 100 Neutrophils % (Manual) 79 % (45-75) H Lymphocytes % (Manual) 11 % (20-45) L Monocytes % (Manual) 9 % (1-10) Eosinophils % (Manual) 1 % (0-3) Basophils % (Manual) 0 % (0-2) Band Neutrophils 0 % (0-8) Platelet Estimate Decreased L Platelet Morphology Normal Hypochromasia 3+ Anisocytosis 2+ Sodium Level 135 mEQ/L (135-145) Potassium Level 3.8 mEQ/L (3.4-4.9) Chloride Level 98 mEQ/L (98-107) Carbon Dioxide Level 24 mEQ/L (20-30) Anion Gap 13 (5-15) Blood Urea Nitrogen 6 mg/dL (7-23) L Creatinine 0.8 mg/dL (0.5-0.9) Estimat Glomerular Filtration Rate > 60 mL/min (>60) Glucose Level 86 mg/dL (74-106) Hemoglobin A1c 4.7 % (< 6.0) Uric Acid 3.0 mg/dL (3.0-7.5) Calcium Level 7.7 mg/dL (8.6-10.2) L Phosphorus Level 2.3 mg/dL (2.5-4.8) L Magnesium Level 1.9 mg/dL (1.7-2.5) Total Bilirubin 0.4 mg/dL (0.0-1.2) Gamma Glutamyl Transpeptidase 85 U/L (5-36) H Aspartate Amino Transf (AST/SGOT) 102 U/L (5-40) H Alanine Aminotransferase (ALT/SGPT) 46 U/L (3-33) H Alkaline Phosphatase 76 U/L (35-104) Total Creatine Kinase 230 U/L (26-140) H C-Reactive Protein, Quantitative 1.9 mg/dL (< 0.5) H Total Protein 6.4 g/dL (6.6-8.7) L Albumin 2.6 g/dL (3.5-5.2) L Globulin 3.8 g/dL Albumin/Globulin Ratio 0.6 (1.0-2.7) L Lipase 176 U/L (< 60) H Hepatitis A IgM Antibody Pending Hepatitis B Surface Antigen Pending Hepatitis B Core IgM Antibody Pending Hepatitis C Antibody Pending HIV (1&2) Antibody Rapid Negative (NEGATIVE) Urine Color Yellow Urine Appearance Slightly cloudy Urine pH 7 (4.5-8.0) Urine Specific [place] 1.005 (1.005-1.035) Urine Protein Negative (NEGATIVE) Urine Glucose (UA) Negative (NEGATIVE) Urine Ketones Negative (NEGATIVE) Urine Occult Blood 4+ (NEGATIVE) H Urine Nitrite Negative (NEGATIVE) Urine Bilirubin Negative (NEGATIVE) Urine Urobilinogen Normal MG/DL (0.0-1.0) Urine Leukocyte Esterase 3+ (NEGATIVE) H Urine RBC 5-10 /HPF (0 - 2) H Urine WBC 5-10 /HPF (0 - 2) H Urine Squamous Epithelial Cells Few /LPF (NONE/OCC) Urine Bacteria Few /HPF (NONE) Current Medications Medications (Trade) Dose Ordered Sig/Payam Route PRN Reason Start Time Stop Time Status Last Admin Dose Admin Acetaminophen (Tylenol) 650 mg Q4H PRN ORAL T>100.5 06/12/16 17:45 07/12/16 17:44 06/13/16 08:27 Acetaminophen/ Hydrocodone Bitart ([place] 10/325) 1 ea Q4H PRN ORAL moderate pain 06/12/16 18:45 06/19/16 18:44 Albuterol/ Ipratropium (DuoNeb 0.5-3(2.5)mg/3ml) 3 ml Q4H PRN HHN Shortness of Breath 06/12/16 17:45 06/17/16 17:44 Cefepime HCl 2 gm/ Dextrose 110 ml @ 220 mls/hr Q12HR@0500,1700 IV 06/12/16 17:00 06/19/16 16:59 06/13/16 05:30 Chlordiazepoxide (Librium) 25 mg Q6H PRN ORAL anxiety, tachycardia 06/12/16 21:45 06/19/16 21:44 06/13/16 11:50 Diphenhydramine HCl (Benadryl) 25 mg Q6H PRN IVP Itching 06/12/16 21:45 07/12/16 21:44 06/13/16 11:47 Folic Acid 1 mg/ Magnesium Sulfate 2000 mg/ Multivitamins 10 ml/Sodium Chloride 1,000 ml @ 125 mls/hr Q24H IV 2/13/17 12:00 07/13/16 11:59 06/13/16 11:47 Gabapentin (Neurontin) 300 mg THREE TIMES A DAY ORAL 06/12/16 18:00 07/12/16 17:59 06/13/16 13:17 Heparin Sodium (Porcine) (Heparin 5000 units/ml) 5,000 units EVERY 12 HOURS SUBQ 06/12/16 21:00 07/12/16 20:59 06/12/16 23:00 Lorazepam (Ativan 2mg/ml 1ml) 1 mg ONCE PRN IV Breakthrough agitation 06/13/16 12:45 06/13/16 20:00 Lorazepam (Ativan 2mg/ml 1ml) 2 mg ONCE PRN IV ANXIETY PRIOR TO MRI 06/13/16 12:45 06/13/16 20:00 06/13/16 13:18 Metronidazole (Flagyl) 100 ml @ 100 mls/hr Q8H IVPB 06/12/16 22:00 06/19/16 21:59 06/13/16 13:16 Morphine Sulfate (Morphine Sulfate) 2 mg Q4H PRN IVP PAIN 4-10 06/12/16 17:45 06/19/16 17:44 06/13/16 13:17 Nitroglycerin (Ntg) 0.4 mg Q5MIN X 3 DOSES PRN SL Prn Chest Pain 06/12/16 15:45 07/12/16 15:44 Ondansetron HCl (Zofran) 4 mg Q6H PRN IVP Nausea & Vomiting 06/12/16 19:45 07/12/16 19:44 06/13/16 11:48 Polyethylene Glycol (Miralax) 17 gm DAILYPRN PRN ORAL Constipation 06/13/16 13:45 07/13/16 13:44 Temazepam (Restoril) 15 mg HSPRN PRN ORAL Insomnia 06/12/16 21:00 06/19/16 20:59 06/12/16 21:50 Thiamine HCl 100 mg/Dextrose 56 ml @ 112 mls/hr Q24H IVPB 06/13/16 12:00 07/13/16 11:59 06/13/16 11:47 Vancomycin HCl 1 ea 1 ea DAILY PRN MISC . 06/13/16 09:00 07/13/16 08:59 Vancomycin HCl/ Dextrose (Vancomycin/D5W) 275 ml @ 183.708 mls/hr Q12HR@0400,1600 IVPB 06/12/16 16:00 06/17/16 15:59 06/13/16 03:52 Brandan Rubin M.D. Jun 13, 2016 16:10
[2016-06-13 17:26] VITALS: BP 146/92
[2016-06-13 20:00] VITALS: BP 124/83
--- NOTE | 2016-06-13 20:34 | Cardiology Progress Note ---
Assessment/Plan Assessment/Plan sinus tachy demand related anemia thrombocytopenia ecoli uti prior gastric surgery venous duplex neg cxr neg check orthostatic vitl in am tele showed sinus ekg reviewed need echo continue abx Subjective Cardiovascular: Denies: chest pain, lightheadedness, palpitations Gastrointestinal/Abdominal: Denies: abdominal pain Genitourinary: Denies: burning Objective Last 24 Hour Vital Signs Date Time Temp Pulse Resp B/P Pulse Ox O2 Delivery O2 Flow Rate FiO2 06/13/16 19:30 110 20 Room Air 21 06/13/16 17:26 106 21 146/92 100 Room Air 06/13/16 11:22 98.2 104 18 121/71 99 Room Air 06/13/16 09:26 99.3 06/13/16 08:00 108 06/13/16 07:45 100.2 110 18 124/72 96 Room Air 06/13/16 06:30 106 16 Room Air 2.0 21 06/13/16 04:05 98.8 133 20 100/74 95 Room Air 06/13/16 03:55 120 06/13/16 00:59 98.8 131 22 120/69 99 Room Air 06/13/16 00:13 112 General Appearance: no apparent distress Neck: supple Cardiovascular: normal rate, regular rhythm, tachycardia Respiratory/Chest: chest wall non-tender, lungs clear Abdomen: normal bowel sounds, non tender, soft Extremities: no swelling Intake and Output 06/12/16 06/13/16 19:00 07:00 Intake Total 300 ml 1595.000 ml Balance 300 ml 1595.000 ml Intake Oral 300 ml 500 ml IV Total 1095.000 ml # Voids 2 5 Laboratory Tests Test 06/13/16 05:40 06/13/16 14:30 White Blood Count 3.7 K/UL (4.8-10.8) L Red Blood Count 2.14 M/UL (4.20-5.40) L Hemoglobin 8.0 G/DL (12.0-16.0) L Hematocrit 24.9 % (37.0-47.0) L Mean Corpuscular Volume 116 FL (80-99) H Mean Corpuscular Hemoglobin 37.4 PG (27.0-31.0) H Mean Corpuscular Hemoglobin Concent 32.2 G/DL (32.0-36.0) Red Cell Distribution Width 19.0 % (11.6-14.8) H Platelet Count 117 K/UL (150-450) L Mean Platelet Volume 5.7 FL (6.5-10.1) L Neutrophils (%) (Auto) % (45.0-75.0) Lymphocytes (%) (Auto) % (20.0-45.0) Monocytes (%) (Auto) % (1.0-10.0) Eosinophils (%) (Auto) % (0.0-3.0) Basophils (%) (Auto) % (0.0-2.0) Differential Total Cells Counted 100 Neutrophils % (Manual) 79 % (45-75) H Lymphocytes % (Manual) 11 % (20-45) L Monocytes % (Manual) 9 % (1-10) Eosinophils % (Manual) 1 % (0-3) Basophils % (Manual) 0 % (0-2) Band Neutrophils 0 % (0-8) Platelet Estimate Decreased L Platelet Morphology Normal Hypochromasia 3+ Anisocytosis 2+ Sodium Level 135 mEQ/L (135-145) Potassium Level 3.8 mEQ/L (3.4-4.9) Chloride Level 98 mEQ/L (98-107) Carbon Dioxide Level 24 mEQ/L (20-30) Anion Gap 13 (5-15) Blood Urea Nitrogen 6 mg/dL (7-23) L Creatinine 0.8 mg/dL (0.5-0.9) Estimat Glomerular Filtration Rate > 60 mL/min (>60) Glucose Level 86 mg/dL (74-106) Hemoglobin A1c 4.7 % (< 6.0) Uric Acid 3.0 mg/dL (3.0-7.5) Calcium Level 7.7 mg/dL (8.6-10.2) L Phosphorus Level 2.3 mg/dL (2.5-4.8) L Magnesium Level 1.9 mg/dL (1.7-2.5) Total Bilirubin 0.4 mg/dL (0.0-1.2) Gamma Glutamyl Transpeptidase 85 U/L (5-36) H Aspartate Amino Transf (AST/SGOT) 102 U/L (5-40) H Alanine Aminotransferase (ALT/SGPT) 46 U/L (3-33) H Alkaline Phosphatase 76 U/L (35-104) Total Creatine Kinase 230 U/L (26-140) H C-Reactive Protein, Quantitative 1.9 mg/dL (< 0.5) H Total Protein 6.4 g/dL (6.6-8.7) L Albumin 2.6 g/dL (3.5-5.2) L Globulin 3.8 g/dL Albumin/Globulin Ratio 0.6 (1.0-2.7) L Lipase 176 U/L (< 60) H Hepatitis A IgM Antibody Pending Hepatitis B Surface Antigen Pending Hepatitis B Core IgM Antibody Pending Hepatitis C Antibody Pending HIV (1&2) Antibody Rapid Negative (NEGATIVE) Urine Color Yellow Urine Appearance Slightly cloudy Urine pH 7 (4.5-8.0) Urine Specific [place] 1.005 (1.005-1.035) Urine Protein Negative (NEGATIVE) Urine Glucose (UA) Negative (NEGATIVE) Urine Ketones Negative (NEGATIVE) Urine Occult Blood 4+ (NEGATIVE) H Urine Nitrite Negative (NEGATIVE) Urine Bilirubin Negative (NEGATIVE) Urine Urobilinogen Normal MG/DL (0.0-1.0) Urine Leukocyte Esterase 3+ (NEGATIVE) H Urine RBC 5-10 /HPF (0 - 2) H Urine WBC 5-10 /HPF (0 - 2) H Urine Squamous Epithelial Cells Few /LPF (NONE/OCC) Urine Bacteria Few /HPF (NONE) STIVEN SCALES Jun 13, 2016 20:34
[2016-06-14] VITALS: BP 125/79
[2016-06-14] MEDS: DiphenhydrAMINE 50mg/ml Inj IVP PRN ×3 (00:52→18:44)
[2016-06-14] MEDS: chlordiazePOXIDE 25mg Cap ORAL PRN ×3 (01:36→19:00)
[2016-06-14] MEDS: Vancomycin 1 GM in D5W 275 ML IVPB SCH ×2 (03:47→18:43)
[2016-06-14 04:00] VITALS: BP 130/69
[2016-06-14] MEDS: Cefepime HCl 2 GM in D5W 110 ML IV SCH (04:41)
[2016-06-14] MEDS: metroNIDAZOLE 500mg 100 ML IVPB SCH ×3 (05:45→23:47)
[2016-06-14 07:59] LABS: MEAN CORPUSCULAR HEMOGLOBIN 38.7 PG (27.0-31.0); MEAN CORPUSCULAR HGB CONC 31.9 G/DL (32.0-36.0); MEAN CORPUSCULAR VOLUME 121 FL (80-99); MEAN PLATELET VOLUME 5.2 FL (6.5-10.1); PLATELET COUNT 126 K/UL (150-450); RED BLOOD COUNT 2.21 M/UL (4.20-5.40); WHITE BLOOD COUNT 3.3 K/UL (4.8-10.8)
[2016-06-14 08:00] VITALS: BP 107/76
[2016-06-14 08:11] LABS: HOMOCYSTINE QUANT 84.6 umol/L (0.0-15.0)
[2016-06-14 08:15] LABS: ANION GAP 12 (5-15); CALCIUM 8.1 mg/dL (8.6-10.2); CARBON DIOXIDE 24 mEQ/L (20-30); CHLORIDE 103 mEQ/L (98-107); CREATININE 0.7 mg/dL (0.5-0.9); GLOMERULAR FILTRATION RATE > 60 mL/min (>60); HEMOLYSIS 5; POTASSIUM 3.9 mEQ/L (3.4-4.9); SODIUM 139 mEQ/L (135-145)
--- NOTE | 2016-06-14 08:32 | General Progress Note ---
Assessment/Plan Assessment/Plan (1) Intractable pain (2) Hydradenitis (4) Lumbar DDD (5) Lumbar Spondylosis (6) Morbid obesity S/p gastric sleeve surgery (7) Abdominal pain The patient will be continued on morphine, [place] and Neurontin. MRI of the cervical and thoracic spine results pending. The patient was discussed with Dr. Art and Dr. Art concurred. Subjective Date patient seen: Jun 14, 2016 Time patient seen: 08:15 - am Allergies: Coded Allergies: IBUPROFEN (Verified Allergy, Severe, Anaphylaxis, 06/12/16) swollen face and lips NSAIDS (NON-STEROIDAL ANTI-INFLAMMA (Verified Allergy, Severe, Anaphylaxis , 06/12/16) swollen face and lips Uncoded Allergies: NSAIDS include Ibuprofen (Adverse Reaction, Severe, Anaphylaxis, 06/11/16) Swollen face and lip Subjective REVIEW OF SYSTEMS: Denies rash, fever, chills, sweating, dizziness, drowsiness, blurred vision, sore throat, or change in her weight. No shortness of breath or chest pain. No nausea or vomiting at this time. No bowel or bladder incontinence. No dysuria. She is complaining of abdominal pain, back pain, right armpit pain, and lower extremity pain. SUBJECTIVE: She reports that her pain continues to fluctuate and is at its worse a 8/10 and reduced to a 5/10 on the medications. MRI of L spine was reviewed. MRI of C and T spine are pending results. Objective Last 24 Hour Vital Signs Date Time Temp Pulse Resp B/P Pulse Ox O2 Delivery O2 Flow Rate FiO2 06/14/16 04:21 96 96 06/14/16 04:00 112 06/14/16 04:00 98.2 96 20 130/69 100 Room Air 06/14/16 00:22 98.8 06/14/16 00:00 99.3 100 20 125/79 97 Room Air 06/14/16 00:00 98 06/13/16 20:00 110 06/13/16 20:00 98.1 105 19 124/83 98 Room Air 06/13/16 19:30 110 20 Room Air 21 06/13/16 17:26 106 21 146/92 100 Room Air 06/13/16 11:22 98.2 104 18 121/71 99 Room Air 06/13/16 09:26 99.3 Intake and Output 06/13/16 06/14/16 19:00 07:00 Intake Total 1231 ml 1010 ml Output Total 550 ml Balance 681 ml 1010 ml Intake Oral 490 ml 260 ml IV Total 741 ml 750 ml Output Urine Total 550 ml Laboratory Tests 06/13/16 14:30: Urine Color Yellow, Urine Appearance Slightly cloudy, Urine pH 7, Urine Specific [place] 1.005, Urine Protein Negative, Urine Glucose (UA) Negative, Urine Ketones Negative, Urine Occult Blood 4+H, Urine Nitrite Negative, Urine Bilirubin Negative, Urine Urobilinogen Normal, Urine Leukocyte Esterase 3+H, Urine RBC 5-10H, Urine WBC 5-10H, Urine Squamous Epithelial Cells Few, Urine Bacteria Few 06/14/16 07:10: White Blood Count 3.3L, Red Blood Count 2.21L, Hemoglobin 8.6L, Hematocrit 26.9L , Mean Corpuscular Volume 121H, Mean Corpuscular Hemoglobin 38.7H, Mean Corpuscular Hemoglobin Concent 31.9L, Red Cell Distribution Width 18.0H, Platelet Count 126L, Mean Platelet Volume 5.2L, Neutrophils (%) (Auto) , Lymphocytes (%) (Auto) , Monocytes (%) (Auto) , Eosinophils (%) (Auto) , Basophils (%) (Auto) , Neutrophils % (Manual) [Pending], Lymphocytes % (Manual) [Pending], Platelet Estimate [Pending], Platelet Morphology [Pending], Sodium Level 139, Potassium Level 3.9, Chloride Level 103, Carbon Dioxide Level 24, Anion Gap 12, Blood Urea Nitrogen 5L, Creatinine 0.7, Estimat Glomerular Filtration Rate > 60, Glucose Level 83, Calcium Level 8.1L Height (Feet): 5 Height (Inches): 8.00 Weight (Pounds): 145 Objective PHYSICAL EXAMINATION: GENERAL: Alert, awake, and oriented x3. HEENT: PERRLA. NECK: Range of motion is full in all directions. No tenderness. No adenopathy. LUNGS: Clear. HEART: Regular. ABDOMEN: Tenderness to palpation. BACK: Range of motion is decreased in flexion and extension with tenderness to paraspinal muscles and trapezial muscles. EXTREMITIES: Motor is intact. No cyanosis. No clubbing. NEURO: No changes. Procedure: MRI L Spine no Contrast Findings: The vertebral body heights are preserved. Bony alignment is normal. There is very slight narrowing of the L5-S1 disc, better appreciated on recent CT scan , and slight [place] type fatty marrow changes of the inferior L5 vertebral body. The remainder of the disc spaces are preserved. The remainder the vertebral body marrow signal is normal. There is evidence of disc desiccation at L3-4, L4-5, and L5-S1. Normal signal is seen centrally within the upper lumbar discs. There is mild circumferential annular bulge of the L5 disc, with posterior central disc protrusion more focally. This does not appear to safely narrow the spinal canal. There does appear to be mild narrowing of the bilateral neural foramina as a result, worse on the left than on the right. At the other levels, no significant disc bulge or protrusion, spinal stenosis, or neural foraminal narrowing. There is prominent epidural fat posterior to the lower lumbar vertebral bodies. This does not appear to significantly narrow the spinal canal or impinge upon the nerve roots The included extraspinal soft tissues are unremarkable. OMARI LUA Jun 14, 2016 08:32
[2016-06-14] MEDS: Heparin 5000 units/ml inj SUBQ SCH ×2 (08:39→21:00)
[2016-06-14] MEDS: Morphine Sulfate 2mg/ml Inj IVP PRN ×4 (08:39→22:41)
--- NOTE | 2016-06-14 09:19 | Diagnostic Imaging Report ---
Indications: Neck pain, unable to move lower extremities Technique: Sagittal STIR and T1-weighted FLAIR, sagittal and axial T2-weighted fast spin echo, axial T1-weighted fat-saturated spin echo and COSMIC ASPIR sequences of the cervical spine were performed prior to gadolinium administration. Sagittal T1 and axial T1-weighted fat-saturated spin echo sequences were performed following IV gadolinium administration. Findings: Comparison: None Spinal cord demonstrates normal configuration and signal characteristics. No intradural or extradural mass, fluid collection, other signal abnormality or abnormal enhancement. Spinal canal, lateral recesses and neural foramina normal caliber throughout. Cervical vertebrae are normal in configuration and marrow signal characteristics, normally aligned. Intervertebral discs are normal in height, signal, and configuration. No significant annular bulge/protrusion or marginal osteophyte formation. Paraspinous soft tissues are unremarkable. IMPRESSION: Negative MRI of the cervical spine without and with gadolinium
--- NOTE | 2016-06-14 09:23 | Cardiology Progress Note ---
Assessment/Plan Assessment/Plan sinus tachy demand related anemia thrombocytopenia ecoli uti prior gastric surgery venous duplex neg cxr neg check orthostatic vitals tele showed sinus / sinus tachy heart rate appera better still anemic await echo abx per id dc tele Subjective Cardiovascular: Denies: chest pain, lightheadedness Respiratory: Reports: cough, sputum, Denies: shortness of breath Gastrointestinal/Abdominal: Denies: abdominal pain Genitourinary: Denies: burning Objective Last 24 Hour Vital Signs Date Time Temp Pulse Resp B/P Pulse Ox O2 Delivery O2 Flow Rate FiO2 06/14/16 04:21 96 96 06/14/16 04:00 112 06/14/16 04:00 98.2 96 20 130/69 100 Room Air 06/14/16 00:22 98.8 06/14/16 00:00 99.3 100 20 125/79 97 Room Air 06/14/16 00:00 98 06/13/16 20:00 110 06/13/16 20:00 98.1 105 19 124/83 98 Room Air 06/13/16 19:30 110 20 Room Air 21 06/13/16 17:26 106 21 146/92 100 Room Air 06/13/16 11:22 98.2 104 18 121/71 99 Room Air 06/13/16 09:26 99.3 General Appearance: no apparent distress, alert Neck: no JVD Cardiovascular: normal rate, regular rhythm Respiratory/Chest: lungs clear, normal breath sounds Abdomen: non tender, soft Extremities: no swelling Intake and Output 06/13/16 06/14/16 19:00 07:00 Intake Total 1231 ml 1010 ml Output Total 550 ml Balance 681 ml 1010 ml Intake Oral 490 ml 260 ml IV Total 741 ml 750 ml Output Urine Total 550 ml Laboratory Tests Test 06/13/16 14:30 06/14/16 07:10 Urine Color Yellow Urine Appearance Slightly cloudy Urine pH 7 (4.5-8.0) Urine Specific [place] 1.005 (1.005-1.035) Urine Protein Negative (NEGATIVE) Urine Glucose (UA) Negative (NEGATIVE) Urine Ketones Negative (NEGATIVE) Urine Occult Blood 4+ (NEGATIVE) H Urine Nitrite Negative (NEGATIVE) Urine Bilirubin Negative (NEGATIVE) Urine Urobilinogen Normal MG/DL (0.0-1.0) Urine Leukocyte Esterase 3+ (NEGATIVE) H Urine RBC 5-10 /HPF (0 - 2) H Urine WBC 5-10 /HPF (0 - 2) H Urine Squamous Epithelial Cells Few /LPF (NONE/OCC) Urine Bacteria Few /HPF (NONE) White Blood Count 3.3 K/UL (4.8-10.8) L Red Blood Count 2.21 M/UL (4.20-5.40) L Hemoglobin 8.6 G/DL (12.0-16.0) L Hematocrit 26.9 % (37.0-47.0) L Mean Corpuscular Volume 121 FL (80-99) H Mean Corpuscular Hemoglobin 38.7 PG (27.0-31.0) H Mean Corpuscular Hemoglobin Concent 31.9 G/DL (32.0-36.0) L Red Cell Distribution Width 18.0 % (11.6-14.8) H Platelet Count 126 K/UL (150-450) L Mean Platelet Volume 5.2 FL (6.5-10.1) L Neutrophils (%) (Auto) % (45.0-75.0) Lymphocytes (%) (Auto) % (20.0-45.0) Monocytes (%) (Auto) % (1.0-10.0) Eosinophils (%) (Auto) % (0.0-3.0) Basophils (%) (Auto) % (0.0-2.0) Neutrophils % (Manual) Pending Lymphocytes % (Manual) Pending Platelet Estimate Pending Platelet Morphology Pending Sodium Level 139 mEQ/L (135-145) Potassium Level 3.9 mEQ/L (3.4-4.9) Chloride Level 103 mEQ/L (98-107) Carbon Dioxide Level 24 mEQ/L (20-30) Anion Gap 12 (5-15) Blood Urea Nitrogen 5 mg/dL (7-23) L Creatinine 0.7 mg/dL (0.5-0.9) Estimat Glomerular Filtration Rate > 60 mL/min (>60) Glucose Level 83 mg/dL (74-106) Calcium Level 8.1 mg/dL (8.6-10.2) L STIVEN SCALES Jun 14, 2016 09:23
[2016-06-14 10:00] LABS: BAND NEUTROPHILS % (MANUAL) 0 % (0-8); BASOPHILS % (MANUAL) 0 % (0-2); EOSINOPHILS % (MANUAL) 4 % (0-3); LYMPHOCYTES % (MANUAL) 32 % (20-45); NEUTROPHILS % (MANUAL) 55 % (45-75); PLATELET ESTIMATE DECREASED; PLATELET MORPHOLOGY NORMAL; TOTAL CELLS COUNTED 100
[2016-06-14 10:01] LABS: ANISOCYTOSIS 2+; HYPOCHROMASIA 1+
[2016-06-14 10:03] LABS: MACROCYTES 1+
[2016-06-14] MEDS: Thiamine HCl 100 MG in D5W 55 ML IVPB SCH (11:46)
[2016-06-14 12:00] VITALS: BP 93/60
--- NOTE | 2016-06-14 12:20 | Pulmonology Progress Note ---
Assessment/Plan Problems: (1) Sepsis (2) Abdominal pain (3) Severe anemia (4) Acute alcohol intoxication (5) UTI (urinary tract infection) Assessment/Plan iv hydration. Banana bag advance diet check cultures continue antibiotics still has episodes of tachycardia, ? etiology. most likely etoh withdraw or anemia may go to med.surg Subjective ROS Limited/Unobtainable: No Interval Events: sitting up on chair, eating Allergies: Coded Allergies: IBUPROFEN (Verified Allergy, Severe, Anaphylaxis, 06/12/16) swollen face and lips NSAIDS (NON-STEROIDAL ANTI-INFLAMMA (Verified Allergy, Severe, Anaphylaxis , 06/12/16) swollen face and lips Uncoded Allergies: NSAIDS include Ibuprofen (Adverse Reaction, Severe, Anaphylaxis, 06/11/16) Swollen face and lip Objective Last 24 Hour Vital Signs Date Time Temp Pulse Resp B/P Pulse Ox O2 Delivery O2 Flow Rate FiO2 06/14/16 09:09 98.2 06/14/16 08:00 96.8 119 17 107/76 100 Room Air 06/14/16 07:47 107 06/14/16 07:35 94 16 Room Air 21 06/14/16 04:21 96 96 06/14/16 04:00 112 06/14/16 04:00 98.2 96 20 130/69 100 Room Air 06/14/16 00:00 99.3 100 20 125/79 97 Room Air 06/14/16 00:00 98 06/13/16 20:00 110 06/13/16 20:00 98.1 105 19 124/83 98 Room Air 06/13/16 19:30 110 20 Room Air 21 06/13/16 17:26 106 21 146/92 100 Room Air Intake and Output 06/13/16 06/14/16 19:00 07:00 Intake Total 1231 ml 1010 ml Output Total 550 ml Balance 681 ml 1010 ml Intake Oral 490 ml 260 ml IV Total 741 ml 750 ml Output Urine Total 550 ml General Appearance: WD/WN HEENT: normocephalic, atraumatic Respiratory/Chest: chest wall non-tender, lungs clear Cardiovascular: normal peripheral pulses, normal rate Abdomen: normal bowel sounds, soft, non tender Genitourinary: normal external genitalia Extremities: no cyanosis Skin: no rash 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 Laboratory Tests 06/13/16 14:30: Urine Color Yellow, Urine Appearance Slightly cloudy, Urine pH 7, Urine Specific [place] 1.005, Urine Protein Negative, Urine Glucose (UA) Negative, Urine Ketones Negative, Urine Occult Blood 4+H, Urine Nitrite Negative, Urine Bilirubin Negative, Urine Urobilinogen Normal, Urine Leukocyte Esterase 3+H, Urine RBC 5-10H, Urine WBC 5-10H, Urine Squamous Epithelial Cells Few, Urine Bacteria Few 06/14/16 07:10: White Blood Count 3.3L, Red Blood Count 2.21L, Hemoglobin 8.6L, Hematocrit 26.9L , Mean Corpuscular Volume 121H, Mean Corpuscular Hemoglobin 38.7H, Mean Corpuscular Hemoglobin Concent 31.9L, Red Cell Distribution Width 18.0H, Platelet Count 126L, Mean Platelet Volume 5.2L, Neutrophils (%) (Auto) , Lymphocytes (%) (Auto) , Monocytes (%) (Auto) , Eosinophils (%) (Auto) , Basophils (%) (Auto) , Differential Total Cells Counted 100, Neutrophils % ( Manual) 55, Lymphocytes % (Manual) 32, Monocytes % (Manual) 9, Eosinophils % ( Manual) 4H, Basophils % (Manual) 0, Band Neutrophils 0, Platelet Estimate DecreasedL, Platelet Morphology Normal, Hypochromasia 1+, Anisocytosis 2+, Macrocytosis 1+, Sodium Level 139, Potassium Level 3.9, Chloride Level 103, Carbon Dioxide Level 24, Anion Gap 12, Blood Urea Nitrogen 5L, Creatinine 0.7, Estimat Glomerular Filtration Rate > 60, Glucose Level 83, Calcium Level 8.1L Current Medications Medications (Trade) Dose Ordered Sig/Payam Route PRN Reason Start Time Stop Time Status Last Admin Dose Admin Acetaminophen (Tylenol) 650 mg Q4H PRN ORAL T>100.5 06/12/16 17:45 07/12/16 17:44 06/13/16 08:27 Acetaminophen/ Hydrocodone Bitart ([place] 10) 1 ea Q4H PRN ORAL moderate pain 06/12/16 18:45 06/19/16 18:44 Albuterol/ Ipratropium (DuoNeb 0.5-3(2.5)mg/3ml) 3 ml Q4H PRN HHN Shortness of Breath 06/12/16 17:45 06/17/16 17:44 Cefepime HCl 2 gm/ Dextrose 110 ml @ 220 mls/hr Q12HR@0500,1700 IV 06/12/16 17:00 06/19/16 16:59 06/14/16 04:41 Chlordiazepoxide (Librium) 25 mg Q6H PRN ORAL anxiety, tachycardia 06/12/16 21:45 06/19/16 21:44 06/14/16 01:36 Diphenhydramine HCl (Benadryl) 25 mg Q6H PRN IVP Itching 06/12/16 21:45 07/12/16 21:44 06/14/16 08:38 Folic Acid 1 mg/ Magnesium Sulfate 2000 mg/ Multivitamins 10 ml/Sodium Chloride 1,000 ml @ 125 mls/hr Q24H IV 06/13/16 12:00 07/13/16 11:59 06/13/16 11:47 Gabapentin (Neurontin) 300 mg THREE TIMES A DAY ORAL 06/12/16 18:00 07/12/16 17:59 06/14/16 08:38 Heparin Sodium (Porcine) (Heparin 5000 units/ml) 5,000 units EVERY 12 HOURS SUBQ 06/12/16 21:00 07/12/16 20:59 06/13/16 21:00 Metronidazole (Flagyl) 100 ml @ 100 mls/hr Q8H IVPB 06/12/16 22:00 06/19/16 21:59 06/14/16 05:45 Morphine Sulfate (Morphine Sulfate) 2 mg Q4H PRN IVP PAIN 4-10 06/12/16 17:45 06/19/16 17:44 06/14/16 08:39 Nitroglycerin (Ntg) 0.4 mg Q5MIN X 3 DOSES PRN SL Prn Chest Pain 06/12/16 15:45 07/12/16 15:44 Ondansetron HCl (Zofran) 4 mg Q6H PRN IVP Nausea & Vomiting 06/12/16 19:45 07/12/16 19:44 06/14/16 08:38 Polyethylene Glycol (Miralax) 17 gm DAILYPRN PRN ORAL Constipation 06/13/16 13:45 07/13/16 13:44 Temazepam (Restoril) 15 mg HSPRN PRN ORAL Insomnia 06/12/16 21:00 06/19/16 20:59 06/12/16 21:50 Thiamine HCl 100 mg/Dextrose 56 ml @ 112 mls/hr Q24H IVPB 06/13/16 12:00 07/13/16 11:59 06/14/16 11:46 Vancomycin HCl 1 ea 1 ea DAILY PRN MISC . 06/13/16 09:00 07/13/16 08:59 Vancomycin HCl/ Dextrose (Vancomycin/D5W) 275 ml @ 183.708 mls/hr Q12HR@0400,1600 IVPB 06/12/16 16:00 06/17/16 15:59 06/14/16 03:47 DAVID CLARKE Jun 14, 2016 12:20
[2016-06-14] MEDS: Folic Acid 1 MG, Magnesium Sulfate 2,000 MG, Multivitamin - 12 Injection 10 ML in NS w/... IV SCH (12:25)
--- NOTE | 2016-06-14 12:33 | General Progress Note ---
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 compression r/o GBS Plan: K supplements- Per consultants- monitor renal parameters and electrolytes- not much to add from renal stand point Subjective ROS Limited/Unobtainable: No Allergies: Coded Allergies: IBUPROFEN (Verified Allergy, Severe, Anaphylaxis, 06/12/16) swollen face and lips NSAIDS (NON-STEROIDAL ANTI-INFLAMMA (Verified Allergy, Severe, Anaphylaxis , 06/12/16) swollen face and lips Uncoded Allergies: NSAIDS include Ibuprofen (Adverse Reaction, Severe, Anaphylaxis, 06/11/16) Swollen face and lip Objective Last 24 Hour Vital Signs Date Time Temp Pulse Resp B/P Pulse Ox O2 Delivery O2 Flow Rate FiO2 06/14/16 09:09 98.2 06/14/16 08:00 96.8 119 17 107/76 100 Room Air 06/14/16 07:47 107 06/14/16 07:35 94 16 Room Air 06/14/16 04:21 96 96 06/14/16 04:00 112 06/14/16 04:00 98.2 96 20 130/69 100 Room Air 06/14/16 00:00 99.3 100 20 125/79 97 Room Air 06/14/16 00:00 98 06/13/16 20:00 110 06/13/16 20:00 98.1 105 19 124/83 98 Room Air 06/13/16 19:30 110 20 Room Air 21 06/13/16 17:26 106 21 146/92 100 Room Air Intake and Output 06/13/16 06/14/16 19:00 07:00 Intake Total 1231 ml 1010 ml Output Total 550 ml Balance 681 ml 1010 ml Intake Oral 490 ml 260 ml IV Total 741 ml 750 ml Output Urine Total 550 ml Laboratory Tests 06/13/16 14:30: Urine Color Yellow, Urine Appearance Slightly cloudy, Urine pH 7, Urine Specific [place] 1.005, Urine Protein Negative, Urine Glucose (UA) Negative, Urine Ketones Negative, Urine Occult Blood 4+H, Urine Nitrite Negative, Urine Bilirubin Negative, Urine Urobilinogen Normal, Urine Leukocyte Esterase 3+H, Urine RBC 5-10H, Urine WBC 5-10H, Urine Squamous Epithelial Cells Few, Urine Bacteria Few 06/14/16 07:10: White Blood Count 3.3L, Red Blood Count 2.21L, Hemoglobin 8.6L, Hematocrit 26.9L , Mean Corpuscular Volume 121H, Mean Corpuscular Hemoglobin 38.7H, Mean Corpuscular Hemoglobin Concent 31.9L, Red Cell Distribution Width 18.0H, Platelet Count 126L, Mean Platelet Volume 5.2L, Neutrophils (%) (Auto) , Lymphocytes (%) (Auto) , Monocytes (%) (Auto) , Eosinophils (%) (Auto) , Basophils (%) (Auto) , Differential Total Cells Counted 100, Neutrophils % ( Manual) 55, Lymphocytes % (Manual) 32, Monocytes % (Manual) 9, Eosinophils % ( Manual) 4H, Basophils % (Manual) 0, Band Neutrophils 0, Platelet Estimate DecreasedL, Platelet Morphology Normal, Hypochromasia 1+, Anisocytosis 2+, Macrocytosis 1+, Sodium Level 139, Potassium Level 3.9, Chloride Level 103, Carbon Dioxide Level 24, Anion Gap 12, Blood Urea Nitrogen 5L, Creatinine 0.7, Estimat Glomerular Filtration Rate > 60, Glucose Level 83, Calcium Level 8.1L Height (Feet): 5 Height (Inches): 8.00 Weight (Pounds): 145 General Appearance: no apparent distress ROSA COYLE Jun 14, 2016 12:33
--- NOTE | 2016-06-14 12:57 | Diagnostic Imaging Report ---
Indications: Neck pain, unable to move lower extremities Technique: Sagittal STIR, sagittal and axial T1-weighted, T1-weighted fat-saturated, and T2-weighted fast spin echo sequences of the thoracic were performed prior to gadolinium administration. Sagittal T1 and axial T1-weighted fat-saturated spin echo sequences were performed following IV gadolinium administration. Findings: Comparison: None Motion artifact degrades all images. Spinal cord demonstrates normal configuration and signal characteristics. No intradural or extradural mass, fluid collection, other signal abnormality or abnormal enhancement. Spinal canal, lateral recesses and neural foramina normal caliber throughout. Thoracic vertebrae are normal in configuration and marrow signal characteristics, normally aligned. T7-8 intervertebral disc mildly decreased in height and signal with mild posterior protrusion. T10-11 intervertebral disc mildly decreased in height and signal with anterior annular bulge-osteophyte complex. Remainder of intervertebral discs are normal in height, signal, and configuration. Paraspinous soft tissues are unremarkable. IMPRESSION: Multilevel mild degenerative disc disease. No obvious neural impingement. Otherwise negative MRI of the thoracic without and with gadolinium
--- NOTE | 2016-06-14 12:57 | Diagnostic Imaging Report ---
Indications: Cephalgia, altered mental status, unable to move legs Technique: Sagittal and axial T1 weighted fast spin-echo, axial T2-weighted fat saturated fast spin echo, T2-weighted FLAIR, T2*-weighted gradient echo, and diffusion sequences of the brain were performed prior to IV gadolinium administration. Axial and coronal T1 weighted fast spin-echo was performed following IV gadolinium administration. Findings: Comparison: None Intracranial anatomy unremarkable. No evidence of mass or hemorrhage, other signal abnormality, mass effect, midline shift, hydrocephalus, or increased intracranial pressure. No restricted diffusion. No abnormal enhancement. Central vascular flow voids preserved. Mucoperiosteal thickening scattered throughout paranasal sinuses. Increased signal in bilateral mastoid air cells. IMPRESSION: Paranasal sinusitis, mild Suggestion of bilateral mastoiditis Otherwise negative MRI of the brain without and with gadolinium.
--- NOTE | 2016-06-14 14:21 | Cardiology Report ---
APPROVED REPORT EXAM: Two-dimensional and M-mode echocardiogram with Doppler and color Doppler. M-Mode DIMENSIONS IVSd1.3 (0.7-1.1cm)Left Atrium (MM)3.7 (1.6-4.0cm) LVDd4.3 (3.5-5.6cm)Aortic Root2.7 (2.0-3.7cm) PWd1.2 (0.7-1.1cm)Aortic Cusp Exc.1.8 (1.5-2.0cm) LVDs2.8 (2.5-4.0cm) PWs1.6 cm Normal left ventricular chamber size, systolic function and wall motion. Left ventricular ejection fraction estimated to be 60 %. Mild left ventricular hypertrophy. No evidence of pericardial effusion. Left and right atrial sizes at upper limits of normal. Right ventricular chamber size is within normal limits. Mild focal aortic valve sclerosis with adequate cusp excursion. Mildly thickened mitral valve leaflets with normal excursion. Mitral annulus and aortic root calcification. Normal pulmonic valve structure. Normal tricuspid valve structure. IVC at normal size with physiologic collapse. A color flow and spectral Doppler study was performed and revealed: Trace mitral regurgitation. Mitral diastolic velocities suggest reduced left ventricular relaxation c/w mild LV diastolic dysfunction (Grade I ). Mild tricuspid regurgitation. Tricuspid systolic velocities suggests peak right ventricular systolic pressure of 40 mmHg, consistent with mild pulmonary hypertension. Pulmonic regurgitation present.
[2016-06-14] MEDS ORDERED: Fluconazole 100mg tab ORAL ONE (14:30)
[2016-06-14] MEDS ORDERED: Nitroglycerin Subl 0.4mg tab (Bottle Of 25) SL PRN (14:45)
--- NOTE | 2016-06-14 14:58 | Neurology Progress Note ---
Interim History Interim History ROS Limited/Unobtainable: No Complaints: ache both thighs numb midabdomen down, Events: stable more mobile Objective Physical Exam Last Vital Signs Date Time Temp Pulse Resp B/P Pulse Ox O2 Delivery O2 Flow Rate FiO2 06/14/16 13:22 98.2 06/14/16 12:00 80 18 93/60 95 Room Air 06/14/16 07:35 21 06/13/16 06:30 2.0 Laboratory Tests Test 06/14/16 07:10 White Blood Count 3.3 K/UL (4.8-10.8) L Red Blood Count 2.21 M/UL (4.20-5.40) L Hemoglobin 8.6 G/DL (12.0-16.0) L Hematocrit 26.9 % (37.0-47.0) L Mean Corpuscular Volume 121 FL (80-99) H Mean Corpuscular Hemoglobin 38.7 PG (27.0-31.0) H Mean Corpuscular Hemoglobin Concent 31.9 G/DL (32.0-36.0) L Red Cell Distribution Width 18.0 % (11.6-14.8) H Platelet Count 126 K/UL (150-450) L Mean Platelet Volume 5.2 FL (6.5-10.1) L Neutrophils (%) (Auto) % (45.0-75.0) Lymphocytes (%) (Auto) % (20.0-45.0) Monocytes (%) (Auto) % (1.0-10.0) Eosinophils (%) (Auto) % (0.0-3.0) Basophils (%) (Auto) % (0.0-2.0) Differential Total Cells Counted 100 Neutrophils % (Manual) 55 % (45-75) Lymphocytes % (Manual) 32 % (20-45) Monocytes % (Manual) 9 % (1-10) Eosinophils % (Manual) 4 % (0-3) H Basophils % (Manual) 0 % (0-2) Band Neutrophils 0 % (0-8) Platelet Estimate Decreased L Platelet Morphology Normal Hypochromasia 1+ Anisocytosis 2+ Macrocytosis 1+ Sodium Level 139 mEQ/L (135-145) Potassium Level 3.9 mEQ/L (3.4-4.9) Chloride Level 103 mEQ/L (98-107) Carbon Dioxide Level 24 mEQ/L (20-30) Anion Gap 12 (5-15) Blood Urea Nitrogen 5 mg/dL (7-23) L Creatinine 0.7 mg/dL (0.5-0.9) Estimat Glomerular Filtration Rate > 60 mL/min (>60) Glucose Level 83 mg/dL (74-106) Calcium Level 8.1 mg/dL (8.6-10.2) L General: well developed, no acute distress, other - obese tender both thighs, numb groin area Head: normocophalic, atraumatic Neck: no rigidity Neurologic Exam Mental Status: awake, alert, oriented x4, normal cognition, good mathematical skills, normal recent memory, normal remote memory, other - very anxious Speech: normal speech, no dysarthia Language: normal language, no aphasia Cranial Nerve II: fundus normal, visual vargas, no papilledema Cranial Nerves III, IV, : PERRLA, EOMI, pupils Cranial Nerve V: normal facial sensations, temporales function normal, masseters function normal, pterygoids function normal Cranial Nerve VII: no facial asymmetry, normal facial expressions Cranial Nerve VIII: normal hearing, no nystagmus Cranial Nerve IX: normal palate elevation, gag response Cranial Nerve X: no voice hoarseness Cranial Nerve XI: SCM symmetric, trapezii function normal Cranial Nerve XII: tongue midline, no tongue atrophy/fasciculations Motor System: other - 3/5 hip R hipflexor +2/5 L hipflexor, 4/5 R hamstring -4/ 5 L hamstring,L foot dorsifexion, tender hips Sensory: other - sensory loss T8 down Coordination: other Deep Tendon Reflexes: 0 bicep (R), 0 brachioradialis (R), 0 tricep (R), 1+ ankle (L), 1+ bicep (L), 1+ brachioradialis (L), 1+ knee (L), 1+ tricep (L) Reflexes: mute plantar (L), mute plantar (R) Stance: other - standing with assist " i feel going to fall" Impression/Recommendations Problems: (1) Ascending paraparesis,r/o spinal cotd compression r/o GBS (2) Hydradenitis (3) Severe anemia (4) Anxiety (5) UTI (urinary tract infection) Status: unchanged Recommendations #[id number] MRI pending C and T spine MRI L spine noted pt/ot DON DAWN Jun 14, 2016 14:58
--- NOTE | 2016-06-14 15:04 | Neurology Progress Note ---
Interim History Interim History ROS Limited/Unobtainable: No Complaints: ache both thighs numb midabdomen down, Events: stable more mobile Objective Physical Exam Last Vital Signs Date Time Temp Pulse Resp B/P Pulse Ox O2 Delivery O2 Flow Rate FiO2 06/14/16 13:22 98.2 06/14/16 12:00 80 18 93/60 95 Room Air 06/14/16 07:35 21 06/13/16 06:30 2.0 Laboratory Tests Test 06/14/16 07:10 White Blood Count 3.3 K/UL (4.8-10.8) L Red Blood Count 2.21 M/UL (4.20-5.40) L Hemoglobin 8.6 G/DL (12.0-16.0) L Hematocrit 26.9 % (37.0-47.0) L Mean Corpuscular Volume 121 FL (80-99) H Mean Corpuscular Hemoglobin 38.7 PG (27.0-31.0) H Mean Corpuscular Hemoglobin Concent 31.9 G/DL (32.0-36.0) L Red Cell Distribution Width 18.0 % (11.6-14.8) H Platelet Count 126 K/UL (150-450) L Mean Platelet Volume 5.2 FL (6.5-10.1) L Neutrophils (%) (Auto) % (45.0-75.0) Lymphocytes (%) (Auto) % (20.0-45.0) Monocytes (%) (Auto) % (1.0-10.0) Eosinophils (%) (Auto) % (0.0-3.0) Basophils (%) (Auto) % (0.0-2.0) Differential Total Cells Counted 100 Neutrophils % (Manual) 55 % (45-75) Lymphocytes % (Manual) 32 % (20-45) Monocytes % (Manual) 9 % (1-10) Eosinophils % (Manual) 4 % (0-3) H Basophils % (Manual) 0 % (0-2) Band Neutrophils 0 % (0-8) Platelet Estimate Decreased L Platelet Morphology Normal Hypochromasia 1+ Anisocytosis 2+ Macrocytosis 1+ Sodium Level 139 mEQ/L (135-145) Potassium Level 3.9 mEQ/L (3.4-4.9) Chloride Level 103 mEQ/L (98-107) Carbon Dioxide Level 24 mEQ/L (20-30) Anion Gap 12 (5-15) Blood Urea Nitrogen 5 mg/dL (7-23) L Creatinine 0.7 mg/dL (0.5-0.9) Estimat Glomerular Filtration Rate > 60 mL/min (>60) Glucose Level 83 mg/dL (74-106) Calcium Level 8.1 mg/dL (8.6-10.2) L General: well developed, no acute distress, other - obese tender both thighs, numb groin area Head: normocophalic, atraumatic Neck: no rigidity Neurologic Exam Mental Status: awake, alert, oriented x4, normal cognition, good mathematical skills, normal recent memory, normal remote memory, other - very anxious Speech: normal speech, no dysarthia Language: normal language, no aphasia Cranial Nerve II: fundus normal, visual vargas, no papilledema Cranial Nerves III, IV, : PERRLA, EOMI, pupils Cranial Nerve V: normal facial sensations, temporales function normal, masseters function normal, pterygoids function normal Cranial Nerve VII: no facial asymmetry, normal facial expressions Cranial Nerve VIII: normal hearing, no nystagmus Cranial Nerve IX: normal palate elevation, gag response Cranial Nerve X: no voice hoarseness Cranial Nerve XI: SCM symmetric, trapezii function normal Cranial Nerve XII: tongue midline, no tongue atrophy/fasciculations Motor System: normal muscle tone, no involuntary movement, no muscle wasting, other - 3/5 hip R hipflexor +2/5 L hipflexor, 4/5 R hamstring -4/5 L hamstring, L foot dorsifexion, tender hips Sensory: other - sensory loss T8 down more distally Coordination: normal finger to nose bilaterally, other Deep Tendon Reflexes: 0 ankle (R), 0 bicep (R), 0 brachioradialis (R), 0 knee ( R), 0 tricep (R), 1+ ankle (L), 1+ bicep (L), 1+ brachioradialis (L), 1+ knee (L ), 1+ tricep (L) Reflexes: mute plantar (L), mute plantar (R) Stance: other - standing with assist " i feel going to fall" Impression/Recommendations Problems: (1) Ascending parapresis, sensory loss. probably [place] syndrom (2) Hydradenitis (3) Severe anemia (4) Anxiety (5) UTI (urinary tract infection) Status: doing well, unchanged Recommendations #[id number] MRI C and T spine noted MRI L spine noted pt/ot [facility] EMG/NCS not tolerating NSAID/Steroids DON DAWN Jun 14, 2016 15:04
--- NOTE | 2016-06-14 15:11 | General Progress Note ---
Assessment/Plan Problem List: (1) Abdominal pain ICD Codes: R10.9 - Unspecified abdominal pain SNOMED: 95283159 (2) Pancytopenia ICD Codes: D61.818 - Other pancytopenia SNOMED: 661251159 (3) Weak ICD Codes: R53.1 - Weakness SNOMED: 87004988 (4) UTI (urinary tract infection) ICD Codes: N39.0 - Urinary tract infection, site not specified SNOMED: 44003493 (5) Acidosis ICD Codes: E87.2 - Acidosis SNOMED: 53441799 Status: stable, progressing, tolerating diet Assessment/Plan ot pt diet abx hem eval cbc bmp am adv diet Subjective Constitutional: Reports: weakness Gastrointestinal/Abdominal: Reports: nausea Allergies: Coded Allergies: IBUPROFEN (Verified Allergy, Severe, Anaphylaxis, 06/12/16) swollen face and lips NSAIDS (NON-STEROIDAL ANTI-INFLAMMA (Verified Allergy, Severe, Anaphylaxis , 06/12/16) swollen face and lips Uncoded Allergies: NSAIDS include Ibuprofen (Adverse Reaction, Severe, Anaphylaxis, 06/11/16) Swollen face and lip All Systems: reviewed and negative except above Subjective calm in bed Objective Last 24 Hour Vital Signs Date Time Temp Pulse Resp B/P Pulse Ox O2 Delivery O2 Flow Rate FiO2 06/14/16 13:22 98.2 06/14/16 12:00 96.9 80 18 93/60 95 Room Air 06/14/16 11:33 113 06/14/16 08:00 96.8 119 17 107/76 100 Room Air 06/14/16 07:47 107 06/14/16 07:35 94 16 Room Air 06/14/16 04:21 96 96 06/14/16 04:00 112 06/14/16 04:00 98.2 96 20 130/69 100 Room Air 06/14/16 00:00 99.3 100 20 125/79 97 Room Air 06/14/16 00:00 98 06/13/16 20:00 110 06/13/16 20:00 98.1 105 19 124/83 98 Room Air 06/13/16 19:30 110 20 Room Air 21 06/13/16 17:26 106 21 146/92 100 Room Air Intake and Output 06/13/16 06/14/16 19:00 07:00 Intake Total 1231 ml 1010 ml Output Total 550 ml Balance 681 ml 1010 ml Intake Oral 490 ml 260 ml IV Total 741 ml 750 ml Output Urine Total 550 ml Laboratory Tests 06/14/16 07:10: White Blood Count 3.3L, Red Blood Count 2.21L, Hemoglobin 8.6L, Hematocrit 26.9L , Mean Corpuscular Volume 121H, Mean Corpuscular Hemoglobin 38.7H, Mean Corpuscular Hemoglobin Concent 31.9L, Red Cell Distribution Width 18.0H, Platelet Count 126L, Mean Platelet Volume 5.2L, Neutrophils (%) (Auto) , Lymphocytes (%) (Auto) , Monocytes (%) (Auto) , Eosinophils (%) (Auto) , Basophils (%) (Auto) , Differential Total Cells Counted 100, Neutrophils % ( Manual) 55, Lymphocytes % (Manual) 32, Monocytes % (Manual) 9, Eosinophils % ( Manual) 4H, Basophils % (Manual) 0, Band Neutrophils 0, Platelet Estimate DecreasedL, Platelet Morphology Normal, Hypochromasia 1+, Anisocytosis 2+, Macrocytosis 1+, Sodium Level 139, Potassium Level 3.9, Chloride Level 103, Carbon Dioxide Level 24, Anion Gap 12, Blood Urea Nitrogen 5L, Creatinine 0.7, Estimat Glomerular Filtration Rate > 60, Glucose Level 83, Calcium Level 8.1L Height (Feet): 5 Height (Inches): 8.00 Weight (Pounds): 145 General Appearance: lethargic EENT: normal ENT inspection Neck: normal alignment Cardiovascular: normal peripheral pulses, normal rate, regular rhythm Respiratory/Chest: chest wall non-tender, lungs clear, normal breath sounds Abdomen: normal bowel sounds, non tender, soft Extremities: normal inspection Edema: no edema noted Arm (L), no edema noted Arm (R), no edema noted Leg (L), no edema noted Leg (R), no edema noted Pedal (L), no edema noted Pedal (R), no edema noted Generalized Neurologic: responsive, motor weakness Skin: normal pigmentation, warm/dry PIETER GAUTHIER Jun 14, 2016 15:11
[2016-06-14] MEDS ORDERED: traMADol 50mg tab ORAL PRN (15:15)
[2016-06-14] MEDS ORDERED: DuoNeb 0.5-3(2.5)mg/3ml neb HHN PRN (15:30)
--- NOTE | 2016-06-14 15:43 | General Progress Note ---
Assessment/Plan Assessment/Plan ASSESSMENT: 1. Anemia secondary to chronic disease - likely related to alcohol yse 2. Pancytopenia concerning for alcohol myelosuppression (should improve in next few days) 3. Leukopenia, possibly secondary to sepsis. 4. Thrombocytopenia, potentially secondary to etoh myelosuppresion v meds 5. Abdominal pain. 6. Acute alcohol intoxication. 7. Urinary tract infection . RECOMMENDATIONS: 1. Monitor counts - likley counts low because of recent alcohol abuse/use and myelosuppresion 2. Transfuse hemoglobin goal> 7. 3. Transfuse of platelets goal > 20,000. 4. Will review CBC by , if not improved, get a bone marrow biopsy. Likely etoh related given macrocytosis 5. Alcohol cessation therapy, AA 6. Follow up on pain management, Pulmonary, ID, and Cardiology, neuro recs 7. Followup on anemia w/u 8. Staff Thank you, Stephon Fontenot MD Subjective Constitutional: Reports: no symptoms HEENT: Reports: no symptoms Cardiovascular: Reports: no symptoms Respiratory: Reports: no symptoms Gastrointestinal/Abdominal: Reports: poor appetite Genitourinary: Reports: no symptoms Neurologic/Psychiatric: Reports: no symptoms Endocrine: Reports: no symptoms Hematologic/Lymphatic: Reports: anemia Allergies: Coded Allergies: IBUPROFEN (Verified Allergy, Severe, Anaphylaxis, 06/12/16) swollen face and lips NSAIDS (NON-STEROIDAL ANTI-INFLAMMA (Verified Allergy, Severe, Anaphylaxis , 06/12/16) swollen face and lips Uncoded Allergies: NSAIDS include Ibuprofen (Adverse Reaction, Severe, Anaphylaxis, 06/11/16) Swollen face and lip All Systems: reviewed and negative except above Subjective stable, no fevers, not bleeding, no complaints, discussed regarding blood counts Objective Last 24 Hour Vital Signs Date Time Temp Pulse Resp B/P Pulse Ox O2 Delivery O2 Flow Rate FiO2 06/14/16 13:22 98.2 06/14/16 12:00 96.9 80 18 93/60 95 Room Air 06/14/16 11:33 113 06/14/16 08:00 96.8 119 17 107/76 100 Room Air 06/14/16 07:47 107 06/14/16 07:35 94 16 Room Air 21 06/14/16 04:21 96 96 06/14/16 04:00 112 06/14/16 04:00 98.2 96 20 130/69 100 Room Air 06/14/16 00:00 99.3 100 20 125/79 97 Room Air 06/14/16 00:00 98 06/13/16 20:00 110 06/13/16 20:00 98.1 105 19 124/83 98 Room Air 06/13/16 19:30 110 20 Room Air 21 06/13/16 17:26 106 21 146/92 100 Room Air Intake and Output 06/13/16 06/14/16 19:00 07:00 Intake Total 1231 ml 1010 ml Output Total 550 ml Balance 681 ml 1010 ml Intake Oral 490 ml 260 ml IV Total 741 ml 750 ml Output Urine Total 550 ml Laboratory Tests 06/14/16 07:10: White Blood Count 3.3L, Red Blood Count 2.21L, Hemoglobin 8.6L, Hematocrit 26.9L , Mean Corpuscular Volume 121H, Mean Corpuscular Hemoglobin 38.7H, Mean Corpuscular Hemoglobin Concent 31.9L, Red Cell Distribution Width 18.0H, Platelet Count 126L, Mean Platelet Volume 5.2L, Neutrophils (%) (Auto) , Lymphocytes (%) (Auto) , Monocytes (%) (Auto) , Eosinophils (%) (Auto) , Basophils (%) (Auto) , Differential Total Cells Counted 100, Neutrophils % ( Manual) 55, Lymphocytes % (Manual) 32, Monocytes % (Manual) 9, Eosinophils % ( Manual) 4H, Basophils % (Manual) 0, Band Neutrophils 0, Platelet Estimate DecreasedL, Platelet Morphology Normal, Hypochromasia 1+, Anisocytosis 2+, Macrocytosis 1+, Sodium Level 139, Potassium Level 3.9, Chloride Level 103, Carbon Dioxide Level 24, Anion Gap 12, Blood Urea Nitrogen 5L, Creatinine 0.7, Estimat Glomerular Filtration Rate > 60, Glucose Level 83, Calcium Level 8.1L Height (Feet): 5 Height (Inches): 8.00 Weight (Pounds): 145 General Appearance: no apparent distress EENT: TMs normal Neck: normal inspection Cardiovascular: normal rate Respiratory/Chest: normal breath sounds Abdomen: non tender Extremities: non-tender Edema: 1+ Leg (L), 1+ Leg (R) Edema: mild edema Neurologic: alert Skin: warm/dry Stephon Fontenot Jun 14, 2016 15:43
[2016-06-14 16:00] VITALS: BP 125/69
[2016-06-14] MEDS ORDERED: Cefepime HCl 2 GM in D5W 110 ML IV SCH (17:00)
[2016-06-14] MEDS ORDERED: Tubing IV Secondary IV ONE (18:42)
[2016-06-14] MEDS ORDERED: NS 275ml ONE (18:42)
[2016-06-14 20:00] VITALS: BP 119/73
[2016-06-14] MEDS: Cyclobenzaprine 10mg Tab ORAL SCH (20:59)
--- NOTE | 2016-06-14 21:46 | Infectious Diseases Prog Note ---
Assessment/Plan Problems: (1) Sepsis Assessment & Plan: less likely with negative blood culture , will narrow down her antibiotics to cover UTI only (2) UTI (urinary tract infection) Assessment & Plan: with culture grew pansensitive E coli, currently on cefepime , will switch to ceftriaxon to treat for 7 days (3) Ovarian cyst Assessment & Plan: recommend transvaginal US and follow up with [facility] (4) Acute alcohol intoxication Assessment & Plan: needs counsling and rehabilitation, monitor in ICU, watch out for alcohol withdrawal. (5) Hydradenitis Assessment & Plan: on flagyl , cefepime and vancomycin empiric coverage, recommend general surgery eval for possible I&D, and send fluids for culture, will treat for 2 weeks with IV antibiotics (6) Vaginal discharge Assessment & Plan: with foul smell suspect yeast infection , will give single dose of fluconazol 150 mg po x 1 Subjective Constitutional: Reports: fatigue Genitourinary: Reports: vaginal bleed/discharge Neurologic: Reports: numbness, weakness Psychiatric: Reports: depression Skin: Reports: other - right auxillary drainage Allergies: Coded Allergies: IBUPROFEN (Verified Allergy, Severe, Anaphylaxis, 06/12/16) swollen face and lips NSAIDS (NON-STEROIDAL ANTI-INFLAMMA (Verified Allergy, Severe, Anaphylaxis , 06/12/16) swollen face and lips Uncoded Allergies: NSAIDS include Ibuprofen (Adverse Reaction, Severe, Anaphylaxis, 06/11/16) Swollen face and lip Objective Vital Signs Last 24 Hour Vital Signs Date Time Temp Pulse Resp B/P Pulse Ox O2 Delivery O2 Flow Rate FiO2 06/14/16 20:00 97.9 102 20 119/73 97 Room Air 06/14/16 19:47 102 18 Room Air 21 06/14/16 19:15 98.2 06/14/16 16:00 98.2 106 20 125/69 99 Room Air 06/14/16 13:22 98.2 06/14/16 12:00 96.9 80 18 93/60 95 Room Air 06/14/16 11:33 113 06/14/16 08:00 96.8 119 17 107/76 100 Room Air 06/14/16 07:47 107 06/14/16 07:35 94 16 Room Air 21 06/14/16 04:21 96 96 06/14/16 04:00 112 06/14/16 04:00 98.2 96 20 130/69 100 Room Air 06/14/16 00:00 99.3 100 20 125/79 97 Room Air 06/14/16 00:00 98 Height (Feet): 5 Height (Inches): 8.00 Weight (Pounds): 145 General Appearance: WD/WN, no acute distress HEENT: normocephalic, atraumatic, anicteric, mucous membranes moist, PERRL Respiratory/Chest: chest wall non-tender, lungs clear, normal breath sounds, no respiratory distress, no accessory muscle use Cardiovascular: normal peripheral pulses, normal rate, regular rhythm, no gallop/murmur, no JVD Abdomen: normal bowel sounds, soft, non tender, no organomegaly, non distended , no mass, no scars Extremities: no cyanosis, no clubbing Skin: no rash, no lesions, other - right hydradenitis Neurologic/Psychiatric: padder II-XII grossly normal, alert, oriented x 3, motor weakness Laboratory Tests Test 06/14/16 07:10 White Blood Count 3.3 K/UL (4.8-10.8) L Red Blood Count 2.21 M/UL (4.20-5.40) L Hemoglobin 8.6 G/DL (12.0-16.0) L Hematocrit 26.9 % (37.0-47.0) L Mean Corpuscular Volume 121 FL (80-99) H Mean Corpuscular Hemoglobin 38.7 PG (27.0-31.0) H Mean Corpuscular Hemoglobin Concent 31.9 G/DL (32.0-36.0) L Red Cell Distribution Width 18.0 % (11.6-14.8) H Platelet Count 126 K/UL (150-450) L Mean Platelet Volume 5.2 FL (6.5-10.1) L Neutrophils (%) (Auto) % (45.0-75.0) Lymphocytes (%) (Auto) % (20.0-45.0) Monocytes (%) (Auto) % (1.0-10.0) Eosinophils (%) (Auto) % (0.0-3.0) Basophils (%) (Auto) % (0.0-2.0) Differential Total Cells Counted 100 Neutrophils % (Manual) 55 % (45-75) Lymphocytes % (Manual) 32 % (20-45) Monocytes % (Manual) 9 % (1-10) Eosinophils % (Manual) 4 % (0-3) H Basophils % (Manual) 0 % (0-2) Band Neutrophils 0 % (0-8) Platelet Estimate Decreased L Platelet Morphology Normal Hypochromasia 1+ Anisocytosis 2+ Macrocytosis 1+ Sodium Level 139 mEQ/L (135-145) Potassium Level 3.9 mEQ/L (3.4-4.9) Chloride Level 103 mEQ/L (98-107) Carbon Dioxide Level 24 mEQ/L (20-30) Anion Gap 12 (5-15) Blood Urea Nitrogen 5 mg/dL (7-23) L Creatinine 0.7 mg/dL (0.5-0.9) Estimat Glomerular Filtration Rate > 60 mL/min (>60) Glucose Level 83 mg/dL (74-106) Calcium Level 8.1 mg/dL (8.6-10.2) L Current Medications Medications (Trade) Dose Ordered Sig/Payam Route PRN Reason Start Time Stop Time Status Last Admin Dose Admin Acetaminophen (Tylenol) 650 mg Q4H PRN ORAL T>100.5 06/14/16 15:30 07/14/16 15:29 Acetaminophen/ Hydrocodone Bitart ([place] 10/325) 1 ea Q4H PRN ORAL moderate pain 06/14/16 14:45 06/21/16 14:44 Albuterol/ Ipratropium (DuoNeb 0.5-3(2.5)mg/3ml) 3 ml Q4H PRN HHN Shortness of Breath 06/14/16 15:30 06/19/16 15:29 Cefepime HCl 2 gm/ Dextrose 110 ml @ 220 mls/hr Q12HR@0500,1700 IV 06/14/16 17:00 06/21/16 16:59 06/14/16 20:59 Chlordiazepoxide (Librium) 25 mg Q6H PRN ORAL anxiety, tachycardia 06/14/16 15:45 06/21/16 15:44 06/14/16 19:00 Cyclobenzaprine HCl (Flexeril) 10 mg BEDTIME ORAL 06/14/16 21:00 07/14/16 20:59 06/14/16 20:59 Diphenhydramine HCl (Benadryl) 25 mg Q6H PRN IVP Itching 06/14/16 15:45 07/14/16 15:44 06/14/16 18:44 Folic Acid 1 mg/ Magnesium Sulfate 2000 mg/ Multivitamins 10 ml/Sodium Chloride 1,000 ml @ 125 mls/hr Q24H IV 06/15/16 12:00 07/15/16 11:59 Gabapentin (Neurontin) 300 mg THREE TIMES A DAY ORAL 06/14/16 18:00 07/14/16 17:59 06/14/16 18:44 Heparin Sodium (Porcine) (Heparin 5000 units/ml) 5,000 units EVERY 12 HOURS SUBQ 06/14/16 21:00 07/14/16 20:59 Metronidazole 100 ml @ 100 mls/hr Q8H IVPB 06/14/16 22:00 06/21/16 21:59 Morphine Sulfate (Morphine Sulfate) 2 mg Q4H PRN IVP PAIN 7-10 06/14/16 15:30 06/21/16 15:29 06/14/16 18:45 Nitroglycerin (Ntg) 0.4 mg Q5MIN X 3 DOSES PRN SL Prn Chest Pain 06/14/16 14:45 07/14/16 14:44 Ondansetron HCl (Zofran) 4 mg Q6H PRN IVP Nausea & Vomiting 06/14/16 15:30 07/14/16 15:29 06/14/16 18:44 Polyethylene Glycol (Miralax) 17 gm DAILYPRN PRN ORAL Constipation 06/15/16 15:30 07/15/16 15:29 Temazepam (Restoril) 15 mg HSPRN PRN ORAL Insomnia 06/14/16 15:30 06/21/16 15:29 Thiamine HCl 100 mg/Dextrose 56 ml @ 112 mls/hr Q24H IVPB 06/15/16 12:00 07/15/16 11:59 Tramadol HCl (Ultram) 50 mg Q6H PRN ORAL For Pain 06/14/16 15:15 06/21/16 15:14 UNV Vancomycin HCl (Vanco rx to dose) 1 ea DAILY PRN MISC . 06/15/16 09:00 07/15/16 08:59 Vancomycin HCl/ Dextrose (Vancomycin/D5W) 275 ml @ 183.708 mls/hr Q12HR@0400,1600 IVPB 06/14/16 16:00 06/19/16 15:59 06/14/16 18:43 Brandan Rubin M.D. Jun 14, 2016 21:46
[2016-06-14] MEDS ORDERED: D5W 55 ML IV ONE (23:38)
[2016-06-14] MEDS: cefTRIAXone 2 GM in D5W 110 ML IVPB SCH (23:48)
[2016-06-15] VITALS: BP 129/79
[2016-06-15 04:00] VITALS: BP 125/80
[2016-06-15] MEDS: Vancomycin 1 GM in D5W 275 ML IVPB SCH ×2 (04:24→16:11)
[2016-06-15] MEDS: DiphenhydrAMINE 50mg/ml Inj IVP PRN ×3 (04:35→17:55)
[2016-06-15] MEDS: Morphine Sulfate 2mg/ml Inj IVP PRN ×5 (04:36→21:59)
[2016-06-15] MEDS: metroNIDAZOLE 500mg 100 ML IVPB SCH ×3 (06:21→22:08)
[2016-06-15 07:12] LABS: MEAN CORPUSCULAR HEMOGLOBIN 37.8 PG (27.0-31.0); MEAN CORPUSCULAR HGB CONC 31.2 G/DL (32.0-36.0); MEAN CORPUSCULAR VOLUME 121 FL (80-99); MEAN PLATELET VOLUME 5.1 FL (6.5-10.1); PLATELET COUNT 179 K/UL (150-450); RED BLOOD COUNT 2.14 M/UL (4.20-5.40); RED CELL DISTRIBUTION WIDTH 18.9 % (11.6-14.8); WHITE BLOOD COUNT 4.5 K/UL (4.8-10.8)
[2016-06-15 07:19] LABS: ANION GAP 15 (5-15); CALCIUM 7.9 mg/dL (8.6-10.2); CARBON DIOXIDE 21 mEQ/L (20-30); CHLORIDE 104 mEQ/L (98-107); CREATININE 0.6 mg/dL (0.5-0.9); GLOMERULAR FILTRATION RATE > 60 mL/min (>60); HEMOLYSIS 21; POTASSIUM 4.1 mEQ/L (3.4-4.9); SODIUM 140 mEQ/L (135-145)
[2016-06-15 08:15] VITALS: BP 136/86
--- NOTE | 2016-06-15 08:36 | General Progress Note ---
Assessment/Plan Assessment/Plan (1) Intractable pain (2) Hydradenitis (4) Lumbar DDD (5) Lumbar Spondylosis (6) Morbid obesity S/p gastric sleeve surgery (7) Abdominal pain The patient will be continued on tramadol, morphine, [place] and Neurontin. The patient was discussed with Dr. Art and Dr. Art concurred. Subjective Date patient seen: Jun 15, 2016 Time patient seen: 07:30 - am Allergies: Coded Allergies: IBUPROFEN (Verified Allergy, Severe, Anaphylaxis, 06/12/16) swollen face and lips NSAIDS (NON-STEROIDAL ANTI-INFLAMMA (Verified Allergy, Severe, Anaphylaxis , 06/12/16) swollen face and lips Uncoded Allergies: NSAIDS include Ibuprofen (Adverse Reaction, Severe, Anaphylaxis, 06/11/16) Swollen face and lip Subjective REVIEW OF SYSTEMS: Denies rash, fever, chills, sweating, dizziness, drowsiness, blurred vision, sore throat, or change in her weight. No shortness of breath or chest pain. No nausea or vomiting at this time. No bowel or bladder incontinence. No dysuria. She is complaining of abdominal pain, back pain, right armpit pain, and lower extremity pain. SUBJECTIVE: Pain has been stable on the medication. MRIs of Cervical and thoracic spine was reviewed with the patient. Objective Last 24 Hour Vital Signs Date Time Temp Pulse Resp B/P Pulse Ox O2 Delivery O2 Flow Rate FiO2 06/15/16 04:00 97.0 93 18 125/80 94 Room Air 06/15/16 00:00 97.9 110 18 129/79 94 Room Air 06/14/16 23:11 98.2 06/14/16 21:58 98.2 06/14/16 20:00 97.9 102 20 119/73 97 Room Air 06/14/16 19:47 102 18 Room Air 21 06/14/16 16:00 98.2 106 20 125/69 99 Room Air 06/14/16 13:22 98.2 06/14/16 12:00 96.9 80 18 93/60 95 Room Air 06/14/16 11:33 113 Intake and Output 06/14/16 06/15/16 19:00 07:00 Intake Total 836 ml 1355.000 ml Balance 836 ml 1355.000 ml Intake Oral 680 ml 360 ml IV Total 156 ml 995.000 ml # Voids 3 6 Laboratory Tests 06/15/16 06:10: White Blood Count 4.5L, Red Blood Count 2.14L, Hemoglobin 8.1L, Hematocrit 25.9L , Mean Corpuscular Volume 121H, Mean Corpuscular Hemoglobin 37.8H, Mean Corpuscular Hemoglobin Concent 31.2L, Red Cell Distribution Width 18.9H, Platelet Count 179, Mean Platelet Volume 5.1L, Neutrophils (%) (Auto) , Lymphocytes (%) (Auto) , Monocytes (%) (Auto) , Eosinophils (%) (Auto) , Basophils (%) (Auto) , Neutrophils % (Manual) [Pending], Lymphocytes % (Manual) [Pending], Platelet Estimate [Pending], Platelet Morphology [Pending], Sodium Level 140, Potassium Level 4.1, Chloride Level 104, Carbon Dioxide Level 21, Anion Gap 15, Blood Urea Nitrogen 7, Creatinine 0.6, Estimat Glomerular Filtration Rate > 60, Glucose Level 87, Calcium Level 7.9L Height (Feet): 5 Height (Inches): 8.00 Weight (Pounds): 145 Objective PHYSICAL EXAMINATION: GENERAL: Alert, awake, and oriented x3. HEENT: PERRLA. NECK: Range of motion is full in all directions. No tenderness. No adenopathy. LUNGS: Clear. HEART: Regular. ABDOMEN: Tenderness to palpation. BACK: Range of motion is decreased in flexion and extension with tenderness to paraspinal muscles and trapezial muscles. EXTREMITIES: Motor is intact. No cyanosis. No clubbing. NEURO: No changes. Procedure: MRI C Spine w/wo Contrast Findings: Comparison: None Spinal cord demonstrates normal configuration and signal characteristics. No intradural or extradural mass, fluid collection, other signal abnormality or abnormal enhancement. Spinal canal, lateral recesses and neural foramina normal caliber throughout. Cervical vertebrae are normal in configuration and marrow signal characteristics, normally aligned. Intervertebral discs are normal in height, signal, and configuration. No significant annular bulge/protrusion or marginal osteophyte formation. Paraspinous soft tissues are unremarkable. IMPRESSION: Negative MRI of the cervical spine without and with gadolinium Procedure: MRI T Spine w/wo Contrast Motion artifact degrades all images. Spinal cord demonstrates normal configuration and signal characteristics. No intradural or extradural mass, fluid collection, other signal abnormality or abnormal enhancement. Spinal canal, lateral recesses and neural foramina normal caliber throughout. Thoracic vertebrae are normal in configuration and marrow signal characteristics, normally aligned. T7-8 intervertebral disc mildly decreased in height and signal with mild posterior protrusion. T10-11 intervertebral disc mildly decreased in height and signal with anterior annular bulge-osteophyte complex. Remainder of intervertebral discs are normal in height, signal, and configuration. Paraspinous soft tissues are unremarkable. IMPRESSION: Multilevel mild degenerative disc disease. No obvious neural impingement. Otherwise negative MRI of the thoracic without and with gadolinium OMARI LUA NAnastasia P.Chanda Jun 15, 2016 08:36
[2016-06-15 08:48] LABS: BAND NEUTROPHILS % (MANUAL) 0 % (0-8); BASOPHILS % (MANUAL) 0 % (0-2); EOSINOPHILS % (MANUAL) 7 % (0-3); LYMPHOCYTES % (MANUAL) 29 % (20-45); MACROCYTES 2+; NEUTROPHILS % (MANUAL) 55 % (45-75); PLATELET ESTIMATE ADEQUATE; PLATELET MORPHOLOGY NORMAL; TOTAL CELLS COUNTED 100
[2016-06-15 08:49] LABS: ANISOCYTOSIS 2+
[2016-06-15] MEDS: Heparin 5000 units/ml inj SUBQ SCH ×2 (08:52→20:14)
[2016-06-15] MEDS: chlordiazePOXIDE 25mg Cap ORAL PRN ×2 (08:55→16:42)
[2016-06-15] MEDS ORDERED: Folic Acid 1 MG, Magnesium Sulfate 2,000 MG, Multivitamin - 12 Injection 10 ML in NS w/... IV SCH (12:00)
[2016-06-15] MEDS ORDERED: Thiamine HCl 100 MG in D5W 55 ML IVPB SCH (12:00)
[2016-06-15 12:15] VITALS: BP 125/75
--- NOTE | 2016-06-15 13:08 | General Progress Note ---
Assessment/Plan Status: stable - from renal stand Assessment/Plan - Dehydration, Hypokalemia - Sepsis - Abdominal pain , abnormal LFTs - Severe anemia - Acute alcohol intoxication, fatty infilt liver - UTI (urinary tract infection) - Ascending paraparesis,r/o spinal cotd compression r/o GBS Plan: K supplements- Per consultants- monitor renal parameters and electrolytes- not much to add from renal stand point Subjective ROS Limited/Unobtainable: No Constitutional: Reports: malaise Allergies: Coded Allergies: IBUPROFEN (Verified Allergy, Severe, Anaphylaxis, 06/12/16) swollen face and lips NSAIDS (NON-STEROIDAL ANTI-INFLAMMA (Verified Allergy, Severe, Anaphylaxis , 06/12/16) swollen face and lips Uncoded Allergies: NSAIDS include Ibuprofen (Adverse Reaction, Severe, Anaphylaxis, 06/11/16) Swollen face and lip Objective Last 24 Hour Vital Signs Date Time Temp Pulse Resp B/P Pulse Ox O2 Delivery O2 Flow Rate FiO2 06/15/16 12:15 97.9 96 20 125/75 98 Room Air 06/15/16 09:50 99 18 Room Air 06/15/16 09:21 97.5 06/15/16 08:15 97.5 92 18 136/86 97 Room Air 06/15/16 04:00 97.0 93 18 125/80 94 Room Air 06/15/16 00:00 97.9 110 18 129/79 94 Room Air 06/14/16 21:58 98.2 06/14/16 20:00 97.9 102 20 119/73 97 Room Air 06/14/16 19:47 102 18 Room Air 06/14/16 16:00 98.2 106 20 125/69 99 Room Air 06/14/16 13:22 98.2 Intake and Output 06/14/16 06/15/16 19:00 07:00 Intake Total 836 ml 1355.000 ml Balance 836 ml 1355.000 ml Intake Oral 680 ml 360 ml IV Total 156 ml 995.000 ml # Voids 3 6 Laboratory Tests 06/15/16 06:10: White Blood Count 4.5L, Red Blood Count 2.14L, Hemoglobin 8.1L, Hematocrit 25.9L , Mean Corpuscular Volume 121H, Mean Corpuscular Hemoglobin 37.8H, Mean Corpuscular Hemoglobin Concent 31.2L, Red Cell Distribution Width 18.9H, Platelet Count 179, Mean Platelet Volume 5.1L, Neutrophils (%) (Auto) , Lymphocytes (%) (Auto) , Monocytes (%) (Auto) , Eosinophils (%) (Auto) , Basophils (%) (Auto) , Differential Total Cells Counted 100, Neutrophils % ( Manual) 55, Lymphocytes % (Manual) 29, Monocytes % (Manual) 9, Eosinophils % ( Manual) 7H, Basophils % (Manual) 0, Band Neutrophils 0, Platelet Estimate Adequate, Platelet Morphology Normal, Anisocytosis 2+, Macrocytosis 2+, Sodium Level 140, Potassium Level 4.1, Chloride Level 104, Carbon Dioxide Level 21, Anion Gap 15, Blood Urea Nitrogen 7, Creatinine 0.6, Estimat Glomerular Filtration Rate > 60, Glucose Level 87, Calcium Level 7.9L Height (Feet): 5 Height (Inches): 8.00 Weight (Pounds): 145 General Appearance: no apparent distress ROSA COYLE Jun 15, 2016 13:08
--- NOTE | 2016-06-15 14:09 | General Progress Note ---
Assessment/Plan Problem List: (1) Abdominal pain ICD Codes: R10.9 - Unspecified abdominal pain SNOMED: 39025595 (2) Pancytopenia ICD Codes: D61.818 - Other pancytopenia SNOMED: 047216566 (3) Weak ICD Codes: R53.1 - Weakness SNOMED: 62632842 (4) UTI (urinary tract infection) ICD Codes: N39.0 - Urinary tract infection, site not specified SNOMED: 44565509 (5) Acidosis ICD Codes: E87.2 - Acidosis SNOMED: 07784615 Status: stable, progressing, tolerating diet Assessment/Plan ot pt diet abx hem eval cbc bmp ltach vs hh Subjective Constitutional: Reports: weakness Allergies: Coded Allergies: IBUPROFEN (Verified Allergy, Severe, Anaphylaxis, 06/12/16) swollen face and lips NSAIDS (NON-STEROIDAL ANTI-INFLAMMA (Verified Allergy, Severe, Anaphylaxis , 06/12/16) swollen face and lips Uncoded Allergies: NSAIDS include Ibuprofen (Adverse Reaction, Severe, Anaphylaxis, 06/11/16) Swollen face and lip All Systems: reviewed and negative except above Subjective calm in bed Objective Last 24 Hour Vital Signs Date Time Temp Pulse Resp B/P Pulse Ox O2 Delivery O2 Flow Rate FiO2 06/15/16 12:15 97.9 96 20 125/75 98 Room Air 06/15/16 12:00 96 112 118 06/15/16 09:50 99 18 Room Air 21 06/15/16 09:21 97.5 06/15/16 08:15 97.5 92 18 136/86 97 Room Air 06/15/16 04:00 97.0 93 18 125/80 94 Room Air 06/15/16 00:00 97.9 110 18 129/79 94 Room Air 06/14/16 21:58 98.2 06/14/16 20:00 97.9 102 20 119/73 97 Room Air 06/14/16 19:47 102 18 Room Air 21 06/14/16 16:00 98.2 106 20 125/69 99 Room Air Intake and Output 06/14/16 06/15/16 19:00 07:00 Intake Total 836 ml 1355.000 ml Balance 836 ml 1355.000 ml Intake Oral 680 ml 360 ml IV Total 156 ml 995.000 ml # Voids 3 6 Laboratory Tests 06/15/16 06:10: White Blood Count 4.5L, Red Blood Count 2.14L, Hemoglobin 8.1L, Hematocrit 25.9L , Mean Corpuscular Volume 121H, Mean Corpuscular Hemoglobin 37.8H, Mean Corpuscular Hemoglobin Concent 31.2L, Red Cell Distribution Width 18.9H, Platelet Count 179, Mean Platelet Volume 5.1L, Neutrophils (%) (Auto) , Lymphocytes (%) (Auto) , Monocytes (%) (Auto) , Eosinophils (%) (Auto) , Basophils (%) (Auto) , Differential Total Cells Counted 100, Neutrophils % ( Manual) 55, Lymphocytes % (Manual) 29, Monocytes % (Manual) 9, Eosinophils % ( Manual) 7H, Basophils % (Manual) 0, Band Neutrophils 0, Platelet Estimate Adequate, Platelet Morphology Normal, Anisocytosis 2+, Macrocytosis 2+, Sodium Level 140, Potassium Level 4.1, Chloride Level 104, Carbon Dioxide Level 21, Anion Gap 15, Blood Urea Nitrogen 7, Creatinine 0.6, Estimat Glomerular Filtration Rate > 60, Glucose Level 87, Calcium Level 7.9L Height (Feet): 5 Height (Inches): 8.00 Weight (Pounds): 145 General Appearance: lethargic EENT: normal ENT inspection Neck: normal alignment Cardiovascular: normal peripheral pulses, normal rate, regular rhythm Respiratory/Chest: chest wall non-tender, lungs clear, normal breath sounds Abdomen: normal bowel sounds, non tender, soft Extremities: normal inspection Edema: no edema noted Arm (L), no edema noted Arm (R), no edema noted Leg (L), no edema noted Leg (R), no edema noted Pedal (L), no edema noted Pedal (R), no edema noted Generalized Neurologic: responsive, motor weakness Skin: normal pigmentation, warm/dry PIETER GAUTHIER Jun 15, 2016 14:09
[2016-06-15] MEDS ORDERED: Miralax 17gm pkt ORAL PRN (15:30)
[2016-06-15 16:00] VITALS: BP_SYST 136; BP_SYST 137; BP_DIAS 81; BP_DIAS 82
--- NOTE | 2016-06-15 16:02 | Neurology Progress Note ---
Interim History Interim History Interim History Ms. Trveino feels better. The legs are a little stronger. The mind is clear. She complains of a generalized body ache. The altered sensation continues from her chest downwards. She was able to stand and walk a little today. She denies any new neurologic symptoms. Review of Systems Neuro Review of Systems Benign. Objective Physical Exam Last Vital Signs Date Time Temp Pulse Resp B/P Pulse Ox O2 Delivery O2 Flow Rate FiO2 06/15/16 14:25 97.9 06/15/16 12:15 96 20 125/75 98 Room Air 06/15/16 09:50 21 06/13/16 06:30 2.0 Laboratory Tests Test 06/15/16 06:10 White Blood Count 4.5 K/UL (4.8-10.8) L Red Blood Count 2.14 M/UL (4.20-5.40) L Hemoglobin 8.1 G/DL (12.0-16.0) L Hematocrit 25.9 % (37.0-47.0) L Mean Corpuscular Volume 121 FL (80-99) H Mean Corpuscular Hemoglobin 37.8 PG (27.0-31.0) H Mean Corpuscular Hemoglobin Concent 31.2 G/DL (32.0-36.0) L Red Cell Distribution Width 18.9 % (11.6-14.8) H Platelet Count 179 K/UL (150-450) Mean Platelet Volume 5.1 FL (6.5-10.1) L Neutrophils (%) (Auto) % (45.0-75.0) Lymphocytes (%) (Auto) % (20.0-45.0) Monocytes (%) (Auto) % (1.0-10.0) Eosinophils (%) (Auto) % (0.0-3.0) Basophils (%) (Auto) % (0.0-2.0) Differential Total Cells Counted 100 Neutrophils % (Manual) 55 % (45-75) Lymphocytes % (Manual) 29 % (20-45) Monocytes % (Manual) 9 % (1-10) Eosinophils % (Manual) 7 % (0-3) H Basophils % (Manual) 0 % (0-2) Band Neutrophils 0 % (0-8) Platelet Estimate Adequate Platelet Morphology Normal Anisocytosis 2+ Macrocytosis 2+ Sodium Level 140 mEQ/L (135-145) Potassium Level 4.1 mEQ/L (3.4-4.9) Chloride Level 104 mEQ/L (98-107) Carbon Dioxide Level 21 mEQ/L (20-30) Anion Gap 15 (5-15) Blood Urea Nitrogen 7 mg/dL (7-23) Creatinine 0.6 mg/dL (0.5-0.9) Estimat Glomerular Filtration Rate > 60 mL/min (>60) Glucose Level 87 mg/dL (74-106) Calcium Level 7.9 mg/dL (8.6-10.2) L Neurologic Exam Objective PHYSICAL EXAMINATION: GENERAL: She is a well-developed, well-nourished, obese, Black lady, lying in bed, no acute distress. HEAD: Normocephalic and atraumatic. EENT: Examination benign. NECK: No neck rigidity was observed. NEUROLOGICAL EXAMINATION: MENTAL STATUS EXAMINATION: She was alert and awake. She was oriented to person, place, and time. She was able to recall 3/3 words immediately after 1 minute and after 3 minutes on the second trial. She was able to remember presidents Tr[place]ridestory through sailsquare. Her mathematical skills were impaired His visuospatial function was impaired. SPEECH: She had no dysarthria. LANGUAGE: She had no aphasia. CRANIAL NERVE EXAMINATION: II: The visual vargas were intact to confrontation testing. III, IV & : The external ocular movements were full and the pupils 3 mm in diameter, equal, round, regular and reactive to light. V: She had normal facial sensations in the temporales, masseters, and pterygoids functioned normally. VII: She had normal facial expression and no facial asymmetry. VIII: She able to hear well bilaterally and had no nystagmus. IX: The palate moved symmetrically on phonation. X: She had no hoarseness of voice. XI: The sternocleidomastoids and trapezii functioned normally. XII: The tongue was in the midline without any fasciculations or atrophy. MOTOR SYSTEM: The tone was normal in all four extremities. Examination of muscle mass revealed no focal wasting. Examination of power revealed G 5/5 power in both upper extremities. In the lower extremities he had: G 4-/5 in the iliopsoas. G 5/5 in the quadriceps. G 4+/5 in the hamstrings. G 4+/5 in the ankle dorsiflexors, and toe extensors. G 5-/5 in the ankle plantar flexors and toe flexors. SENSORY EXAMINATION: She had altered sensations to pinprick and light touch below T6. REFLEXES: 1+ and bilaterally symmetrical at the biceps, triceps, brachioradialis and knees. 0 at both ankles. The plantar responses were flexor bilaterally. STANCE & GAIT: Could not be tested. Impression/Recommendations Diagnostic Impression 1. Ms Alyssa Trevino is a 40 year old, right handed, Black lady who was admitted for feeling ill, unable to eat, numbness and weakness in the lower extremities. 2. She feels better today. Her legs are stronger. However the numbness in the legs is about the same. 3. On neurologic examination, at this time, she exhibits cognitive dysfunction. She also has a paraparesis. In addition she has a T6 sensory level. Her reflexes are globally diminished but not lost. 4. At this point in time is is unclear as to what exactly is causing her lower extremity weakness and numbness starting at the T6 level. 5. Structural cord pathology has been excluded. Recommendations 1. Continue present management. 2. Mobilize with PT/OT. 3. Observe. Ana Ball M.D., M.S.P.ANA ESCALANTE Jun 15, 2016 16:02
[2016-06-15] MEDS: Norco 10mg/325mg tab ORAL PRN ×2 (16:10→20:10)
--- NOTE | 2016-06-15 16:58 | Infectious Diseases Prog Note ---
Assessment/Plan Problems: (1) Sepsis Assessment & Plan: less likely with negative blood culture , will narrow down her antibiotics to cover UTI only (2) UTI (urinary tract infection) Assessment & Plan: with culture grew pansensitive E coli, currently on cefepime , will switch to ceftriaxon to treat for 7 days (3) Ovarian cyst Assessment & Plan: recommend transvaginal US and follow up with [facility] (4) Acute alcohol intoxication Assessment & Plan: needs counsling and rehabilitation, monitor in ICU, watch out for alcohol withdrawal. 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 Subjective Constitutional: Reports: fatigue Neurologic: Reports: numbness, weakness Skin: Reports: other - right auxillary drainage Musculoskeletal: Reports: pain Allergies: Coded Allergies: IBUPROFEN (Verified Allergy, Severe, Anaphylaxis, 06/12/16) swollen face and lips NSAIDS (NON-STEROIDAL ANTI-INFLAMMA (Verified Allergy, Severe, Anaphylaxis , 06/12/16) swollen face and lips Uncoded Allergies: NSAIDS include Ibuprofen (Adverse Reaction, Severe, Anaphylaxis, 06/11/16) Swollen face and lip Objective Vital Signs Last 24 Hour Vital Signs Date Time Temp Pulse Resp B/P Pulse Ox O2 Delivery O2 Flow Rate FiO2 06/15/16 16:00 97.8 97 20 136/81 97 Room Air 06/15/16 14:25 97.9 06/15/16 12:15 97.9 96 20 125/75 98 Room Air 06/15/16 12:00 96 112 118 06/15/16 09:50 99 18 Room Air 21 06/15/16 08:15 97.5 92 18 136/86 97 Room Air 06/15/16 04:00 97.0 93 18 125/80 94 Room Air 06/15/16 00:00 97.9 110 18 129/79 94 Room Air 06/14/16 21:58 98.2 06/14/16 20:00 97.9 102 20 119/73 97 Room Air 06/14/16 19:47 102 18 Room Air 21 Height (Feet): 5 Height (Inches): 8.00 Weight (Pounds): 145 General Appearance: WD/WN, no acute distress HEENT: normocephalic, atraumatic, anicteric, mucous membranes moist Respiratory/Chest: chest wall non-tender, lungs clear, normal breath sounds, no respiratory distress, no accessory muscle use Cardiovascular: normal peripheral pulses, normal rate, regular rhythm, no gallop/murmur Abdomen: normal bowel sounds, soft, non tender, no organomegaly, non distended , no mass Extremities: no cyanosis, no clubbing Skin: no rash, no lesions, other - right auxillary weebing, hydradenitis Laboratory Tests Test 06/15/16 06:10 White Blood Count 4.5 K/UL (4.8-10.8) L Red Blood Count 2.14 M/UL (4.20-5.40) L Hemoglobin 8.1 G/DL (12.0-16.0) L Hematocrit 25.9 % (37.0-47.0) L Mean Corpuscular Volume 121 FL (80-99) H Mean Corpuscular Hemoglobin 37.8 PG (27.0-31.0) H Mean Corpuscular Hemoglobin Concent 31.2 G/DL (32.0-36.0) L Red Cell Distribution Width 18.9 % (11.6-14.8) H Platelet Count 179 K/UL (150-450) Mean Platelet Volume 5.1 FL (6.5-10.1) L Neutrophils (%) (Auto) % (45.0-75.0) Lymphocytes (%) (Auto) % (20.0-45.0) Monocytes (%) (Auto) % (1.0-10.0) Eosinophils (%) (Auto) % (0.0-3.0) Basophils (%) (Auto) % (0.0-2.0) Differential Total Cells Counted 100 Neutrophils % (Manual) 55 % (45-75) Lymphocytes % (Manual) 29 % (20-45) Monocytes % (Manual) 9 % (1-10) Eosinophils % (Manual) 7 % (0-3) H Basophils % (Manual) 0 % (0-2) Band Neutrophils 0 % (0-8) Platelet Estimate Adequate Platelet Morphology Normal Anisocytosis 2+ Macrocytosis 2+ Sodium Level 140 mEQ/L (135-145) Potassium Level 4.1 mEQ/L (3.4-4.9) Chloride Level 104 mEQ/L (98-107) Carbon Dioxide Level 21 mEQ/L (20-30) Anion Gap 15 (5-15) Blood Urea Nitrogen 7 mg/dL (7-23) Creatinine 0.6 mg/dL (0.5-0.9) Estimat Glomerular Filtration Rate > 60 mL/min (>60) Glucose Level 87 mg/dL (74-106) Calcium Level 7.9 mg/dL (8.6-10.2) L Current Medications Medications (Trade) Dose Ordered Sig/Payam Route PRN Reason Start Time Stop Time Status Last Admin Dose Admin Acetaminophen (Tylenol) 650 mg Q4H PRN ORAL T>100.5 06/14/16 15:30 07/14/16 15:29 Acetaminophen/ Hydrocodone Bitart ([place] 10/325) 1 ea Q4H PRN ORAL moderate pain 06/14/16 14:45 06/21/16 14:44 06/15/16 16:10 Albuterol/ Ipratropium (DuoNeb 0.5-3(2.5)mg/3ml) 3 ml Q4H PRN HHN Shortness of Breath 06/14/16 15:30 06/19/16 15:29 Ceftriaxone Sodium/Dextrose (Rocephin/D5W) 110 ml @ 220 mls/hr Q24H IVPB 06/14/16 23:00 06/21/16 22:59 06/14/16 23:48 Chlordiazepoxide (Librium) 25 mg Q6H PRN ORAL anxiety, tachycardia 06/14/16 15:45 06/21/16 15:44 06/15/16 16:42 Clotrimazole (Lotrimin) 1 applic EVERY 12 HOURS TOPIC 06/15/16 09:00 07/15/16 08:59 06/15/16 11:47 Cyclobenzaprine HCl (Flexeril) 10 mg BEDTIME ORAL 06/14/16 21:00 07/14/16 20:59 06/14/16 20:59 Diphenhydramine HCl (Benadryl) 25 mg Q6H PRN IVP Itching 06/14/16 15:45 07/14/16 15:44 06/15/16 11:48 Folic Acid 1 mg/ Magnesium Sulfate 2000 mg/ Multivitamins 10 ml/Sodium Chloride 1,000 ml @ 125 mls/hr Q24H IV 06/15/16 12:00 07/15/16 11:59 06/15/16 11:48 Gabapentin (Neurontin) 300 mg THREE TIMES A DAY ORAL 06/14/16 18:00 07/14/16 17:59 06/15/16 13:54 Heparin Sodium (Porcine) (Heparin 5000 units/ml) 5,000 units EVERY 12 HOURS SUBQ 06/14/16 21:00 07/14/16 20:59 06/15/16 08:52 Metronidazole 100 ml @ 100 mls/hr Q8H IVPB 06/14/16 22:00 06/21/16 21:59 06/15/16 13:58 Morphine Sulfate (Morphine Sulfate) 2 mg Q4H PRN IVP PAIN 7-10 06/14/16 15:30 06/21/16 15:29 06/15/16 13:55 Nitroglycerin (Ntg) 0.4 mg Q5MIN X 3 DOSES PRN SL Prn Chest Pain 06/14/16 14:45 07/14/16 14:44 Ondansetron HCl (Zofran) 4 mg Q6H PRN IVP Nausea & Vomiting 06/14/16 15:30 07/14/16 15:29 06/15/16 11:48 Polyethylene Glycol (Miralax) 17 gm DAILYPRN PRN ORAL Constipation 06/15/16 15:30 07/15/16 15:29 Temazepam (Restoril) 15 mg HSPRN PRN ORAL Insomnia 06/14/16 15:30 06/21/16 15:29 06/14/16 22:40 Thiamine HCl 100 mg/Dextrose 56 ml @ 112 mls/hr Q24H IVPB 06/15/16 12:00 07/15/16 11:59 06/15/16 11:48 Tramadol HCl 50 mg 50 mg Q6H PRN ORAL Mild Pain (Pain Scale 1-3) 06/14/16 15:15 06/21/16 15:14 Vancomycin HCl (Vanco rx to dose) 1 ea DAILY PRN MISC . 06/15/16 09:00 07/15/16 08:59 Vancomycin HCl/ Dextrose (Vancomycin/D5W) 275 ml @ 183.708 mls/hr Q12HR@0400,1600 IVPB 06/14/16 16:00 06/19/16 15:59 06/15/16 16:11 Brandan Rubin M.D. Jun 15, 2016 16:58
--- NOTE | 2016-06-15 17:54 | Pulmonology Progress Note ---
Assessment/Plan Problems: (1) Sepsis (2) Abdominal pain (3) Severe anemia (4) Acute alcohol intoxication (5) UTI (urinary tract infection) Assessment/Plan iv hydration. Banana bag advance diet check cultures continue antibiotics still has episodes of tachycardia, ? etiology. most likely etoh withdraw or anemia may go to med.surg Subjective ROS Limited/Unobtainable: No Constitutional: Reports: anorexia, fatigue Gastrointestinal/Abdominal: Reports: bloating, blood in stool, constipation, diarrhea, nausea, vomiting Allergies: Coded Allergies: IBUPROFEN (Verified Allergy, Severe, Anaphylaxis, 06/12/16) swollen face and lips NSAIDS (NON-STEROIDAL ANTI-INFLAMMA (Verified Allergy, Severe, Anaphylaxis , 06/12/16) swollen face and lips Uncoded Allergies: NSAIDS include Ibuprofen (Adverse Reaction, Severe, Anaphylaxis, 06/11/16) Swollen face and lip Objective Last 24 Hour Vital Signs Date Time Temp Pulse Resp B/P Pulse Ox O2 Delivery O2 Flow Rate FiO2 06/15/16 17:09 97.9 06/15/16 16:00 97.8 97 20 136/81 97 Room Air 06/15/16 14:25 97.9 06/15/16 12:15 97.9 96 20 125/75 98 Room Air 06/15/16 12:00 96 112 118 06/15/16 09:50 99 18 Room Air 21 06/15/16 08:15 97.5 92 18 136/86 97 Room Air 06/15/16 04:00 97.0 93 18 125/80 94 Room Air 06/15/16 00:00 97.9 110 18 129/79 94 Room Air 06/14/16 21:58 98.2 06/14/16 20:00 97.9 102 20 119/73 97 Room Air 06/14/16 19:47 102 18 Room Air 21 Intake and Output 06/14/16 06/15/16 19:00 07:00 Intake Total 836 ml 1355.000 ml Balance 836 ml 1355.000 ml Intake Oral 680 ml 360 ml IV Total 156 ml 995.000 ml # Voids 3 6 General Appearance: no acute distress HEENT: normocephalic, atraumatic, PERRL Respiratory/Chest: chest wall non-tender, decreased breath sounds, accessory muscle use Breasts: no masses Cardiovascular: normal peripheral pulses, normal rate, regular rhythm, no JVD Abdomen: hyperactive bowel sounds, distended, guarding, tender, rebound tenderness Genitourinary: normal external genitalia Extremities: no cyanosis Skin: no rash, no lesions 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, no motor/sensory deficits Laboratory Tests 06/15/16 06:10: White Blood Count 4.5L, Red Blood Count 2.14L, Hemoglobin 8.1L, Hematocrit 25.9L , Mean Corpuscular Volume 121H, Mean Corpuscular Hemoglobin 37.8H, Mean Corpuscular Hemoglobin Concent 31.2L, Red Cell Distribution Width 18.9H, Platelet Count 179, Mean Platelet Volume 5.1L, Neutrophils (%) (Auto) , Lymphocytes (%) (Auto) , Monocytes (%) (Auto) , Eosinophils (%) (Auto) , Basophils (%) (Auto) , Differential Total Cells Counted 100, Neutrophils % ( Manual) 55, Lymphocytes % (Manual) 29, Monocytes % (Manual) 9, Eosinophils % ( Manual) 7H, Basophils % (Manual) 0, Band Neutrophils 0, Platelet Estimate Adequate, Platelet Morphology Normal, Anisocytosis 2+, Macrocytosis 2+, Sodium Level 140, Potassium Level 4.1, Chloride Level 104, Carbon Dioxide Level 21, Anion Gap 15, Blood Urea Nitrogen 7, Creatinine 0.6, Estimat Glomerular Filtration Rate > 60, Glucose Level 87, Calcium Level 7.9L Current Medications Medications (Trade) Dose Ordered Sig/Payam Route PRN Reason Start Time Stop Time Status Last Admin Dose Admin Acetaminophen (Tylenol) 650 mg Q4H PRN ORAL T>100.5 06/14/16 15:30 07/14/16 15:29 Acetaminophen/ Hydrocodone Bitart ([place] 10/325) 1 ea Q4H PRN ORAL moderate pain 06/14/16 14:45 06/21/16 14:44 06/15/16 16:10 Albuterol/ Ipratropium (DuoNeb 0.5-3(2.5)mg/3ml) 3 ml Q4H PRN HHN Shortness of Breath 06/14/16 15:30 06/19/16 15:29 Ceftriaxone Sodium/Dextrose (Rocephin/D5W) 110 ml @ 220 mls/hr Q24H IVPB 06/14/16 23:00 06/21/16 22:59 06/14/16 23:48 Chlordiazepoxide (Librium) 25 mg Q6H PRN ORAL anxiety, tachycardia 06/14/16 15:45 06/21/16 15:44 06/15/16 16:42 Clotrimazole (Lotrimin) 1 applic EVERY 12 HOURS TOPIC 06/15/16 09:00 07/15/16 08:59 06/15/16 11:47 Cyclobenzaprine HCl (Flexeril) 10 mg BEDTIME ORAL 06/14/16 21:00 07/14/16 20:59 06/14/16 20:59 Diphenhydramine HCl (Benadryl) 25 mg Q6H PRN IVP Itching 06/14/16 15:45 07/14/16 15:44 06/15/16 11:48 Folic Acid 1 mg/ Magnesium Sulfate 2000 mg/ Multivitamins 10 ml/Sodium Chloride 1,000 ml @ 125 mls/hr Q24H IV 06/15/16 12:00 07/15/16 11:59 06/15/16 11:48 Gabapentin (Neurontin) 300 mg THREE TIMES A DAY ORAL 06/14/16 18:00 07/14/16 17:59 06/15/16 13:54 Heparin Sodium (Porcine) (Heparin 5000 units/ml) 5,000 units EVERY 12 HOURS SUBQ 06/14/16 21:00 07/14/16 20:59 06/15/16 08:52 Metronidazole 100 ml @ 100 mls/hr Q8H IVPB 06/14/16 22:00 06/21/16 21:59 06/15/16 13:58 Morphine Sulfate (Morphine Sulfate) 2 mg Q4H PRN IVP PAIN 7-10 06/14/16 15:30 06/21/16 15:29 06/15/16 13:55 Nitroglycerin (Ntg) 0.4 mg Q5MIN X 3 DOSES PRN SL Prn Chest Pain 06/14/16 14:45 07/14/16 14:44 Ondansetron HCl (Zofran) 4 mg Q6H PRN IVP Nausea & Vomiting 06/14/16 15:30 07/14/16 15:29 06/15/16 11:48 Polyethylene Glycol (Miralax) 17 gm DAILYPRN PRN ORAL Constipation 06/15/16 15:30 07/15/16 15:29 Temazepam (Restoril) 15 mg HSPRN PRN ORAL Insomnia 06/14/16 15:30 06/21/16 15:29 06/14/16 22:40 Thiamine HCl 100 mg/Dextrose 56 ml @ 112 mls/hr Q24H IVPB 06/15/16 12:00 07/15/16 11:59 06/15/16 11:48 Tramadol HCl 50 mg 50 mg Q6H PRN ORAL Mild Pain (Pain Scale 1-3) 06/14/16 15:15 06/21/16 15:14 Vancomycin HCl (Vanco rx to dose) 1 ea DAILY PRN MISC . 06/15/16 09:00 07/15/16 08:59 Vancomycin HCl/ Dextrose (Vancomycin/D5W) 275 ml @ 183.708 mls/hr Q12HR@0400,1600 IVPB 06/14/16 16:00 06/19/16 15:59 06/15/16 16:11 DAVID CLARKE Jun 15, 2016 17:54
--- NOTE | 2016-06-15 18:01 | General Progress Note ---
Assessment/Plan Assessment/Plan ASSESSMENT: 1. Anemia secondary to chronic disease - likely related to alcohol use 2. Pancytopenia concerning for alcohol myelosuppression (should improve in next few days) 3. Leukopenia, possibly secondary to sepsis. 4. Thrombocytopenia, potentially secondary to etoh myelosuppresion v meds 5. Abdominal pain. 6. Acute alcohol intoxication. 7. Urinary tract infection . RECOMMENDATIONS: 1. Monitor counts - likley counts low because of recent alcohol abuse/use and myelosuppression 2. Transfuse hemoglobin goal> 7 3. Transfuse of platelets goal > 20k 4. Will review CBC by , if not improved, get a bone marrow biopsy. Likely etoh related given macrocytosis 5. Alcohol cessation therapy, AA 6. Follow up on pain management, Pulmonary, ID, and Cardiology, neuro recs 7. Reviewed anemia w/u 8. DW Staff Thank you, Stephon Fontenot MD Subjective Constitutional: Reports: no symptoms HEENT: Reports: no symptoms Cardiovascular: Reports: no symptoms Respiratory: Reports: no symptoms Gastrointestinal/Abdominal: Reports: no symptoms Genitourinary: Reports: no symptoms Neurologic/Psychiatric: Reports: no symptoms Endocrine: Reports: no symptoms Hematologic/Lymphatic: Reports: anemia Allergies: Coded Allergies: IBUPROFEN (Verified Allergy, Severe, Anaphylaxis, 06/12/16) swollen face and lips NSAIDS (NON-STEROIDAL ANTI-INFLAMMA (Verified Allergy, Severe, Anaphylaxis , 06/12/16) swollen face and lips Uncoded Allergies: NSAIDS include Ibuprofen (Adverse Reaction, Severe, Anaphylaxis, 06/11/16) Swollen face and lip Subjective stable, no fevers, not bleeding, no complaints, no hematochezia or hematemesis Objective Last 24 Hour Vital Signs Date Time Temp Pulse Resp B/P Pulse Ox O2 Delivery O2 Flow Rate FiO2 06/15/16 17:09 97.9 06/15/16 16:00 97.8 97 20 136/81 97 Room Air 06/15/16 14:25 97.9 06/15/16 12:15 97.9 96 20 125/75 98 Room Air 06/15/16 12:00 96 112 118 06/15/16 09:50 99 18 Room Air 21 06/15/16 08:15 97.5 92 18 136/86 97 Room Air 06/15/16 04:00 97.0 93 18 125/80 94 Room Air 06/15/16 00:00 97.9 110 18 129/79 94 Room Air 06/14/16 21:58 98.2 06/14/16 20:00 97.9 102 20 119/73 97 Room Air 06/14/16 19:47 102 18 Room Air 21 Intake and Output 06/14/16 06/15/16 19:00 07:00 Intake Total 836 ml 1355.000 ml Balance 836 ml 1355.000 ml Intake Oral 680 ml 360 ml IV Total 156 ml 995.000 ml # Voids 3 6 Laboratory Tests 06/15/16 06:10: White Blood Count 4.5L, Red Blood Count 2.14L, Hemoglobin 8.1L, Hematocrit 25.9L , Mean Corpuscular Volume 121H, Mean Corpuscular Hemoglobin 37.8H, Mean Corpuscular Hemoglobin Concent 31.2L, Red Cell Distribution Width 18.9H, Platelet Count 179, Mean Platelet Volume 5.1L, Neutrophils (%) (Auto) , Lymphocytes (%) (Auto) , Monocytes (%) (Auto) , Eosinophils (%) (Auto) , Basophils (%) (Auto) , Differential Total Cells Counted 100, Neutrophils % ( Manual) 55, Lymphocytes % (Manual) 29, Monocytes % (Manual) 9, Eosinophils % ( Manual) 7H, Basophils % (Manual) 0, Band Neutrophils 0, Platelet Estimate Adequate, Platelet Morphology Normal, Anisocytosis 2+, Macrocytosis 2+, Sodium Level 140, Potassium Level 4.1, Chloride Level 104, Carbon Dioxide Level 21, Anion Gap 15, Blood Urea Nitrogen 7, Creatinine 0.6, Estimat Glomerular Filtration Rate > 60, Glucose Level 87, Calcium Level 7.9L Height (Feet): 5 Height (Inches): 8.00 Weight (Pounds): 145 General Appearance: no apparent distress EENT: TMs normal Neck: supple Cardiovascular: regular rhythm Respiratory/Chest: lungs clear Abdomen: non tender Extremities: non-tender Edema: no edema noted Leg (L), no edema noted Leg (R) Edema: mild edema Neurologic: no motor/sensory deficits Skin: warm/dry Stephon Fontenot Jun 15, 2016 18:01
--- NOTE | 2016-06-15 18:09 | Consultation ---
DATE OF CONSULTATION: 06/15/2016 CONSULTING PHYSICIAN: Karissa Trent M.D. ATTENDING PHYSICIAN: Franky Olvera D.O. REQUESTING PHYSICIAN: Brandan Rubin M.D. REASON FOR CONSULTATION: Hidradenitis of the axilla. HISTORY OF PRESENT ILLNESS: This is a 40-year-old female, who presented to emergency room for weakness of the legs. She stated that she was unable to walk and so she was brought to the emergency room. During the workup, it was noticed that she had hidradenitis and I have been asked for evaluation. The patient stated that she has long history of hidradenitis. She stated that she had hidradenitis in both axillae for which she underwent surgery when she was 17 or 18 years old. She claimed that she was symptom-free for about 10 years, but after 10 years, she had recurrence. She has had hidradenitis in both axillae, both groins, and even between the buttocks. She is not very clear but at one point, she stated that she has had 13 surgeries for hidradenitis, but claimed that she only had one surgery on the right axilla. She claimed that she had skin graft on the buttock which did not take. She has been under treatment at [facility] by plastic surgeon. Apparently, they had been planning to operate on her chronic hidradenitis. She claims that she has been having drainage on the right side since January which is about 3 to 4 months, but she denies any fever or tenderness. PAST MEDICAL HISTORY: She denies allergies, asthma, diabetes, hypertension, cardiac and renal diseases. PAST SURGICAL HISTORY: Include breast reduction, gastric sleeve, multiple surgeries for hidradenitis. MEDICATIONS: None. SOCIAL HISTORY: This is a 40-year-old female, single without any children, unemployed. Denies smoking, but drinks probably regularly. REVIEW OF SYSTEMS: She complains of weakness of the legs. PHYSICAL EXAMINATION: GENERAL: The patient appeared to be a well-developed, well-nourished, obese 40-year-old female, lying on the bed, in no acute distress. HEENT: Head is normocephalic and atraumatic. Eyes, pupils are equal, round, and reactive to light. Mouth is clear. NECK: There is no palpable thyromegaly or adenopathy. CHEST: Clear to auscultation and percussion. HEART: There is no gallop or murmur. S1 and S2 are within normal limits. ABDOMEN: Soft, flat with mild tenderness at the epigastrium. She has a scar of laparoscopy. EXTREMITIES: The right axilla, she has multiple scars of the chronic hidradenitis. She had drainage from one opening. ASSESSMENT: Chronic hidradenitis. RECOMMENDATION: The patient requires complete resection of the skin in the axilla with local flap. This has to be performed by a plastic surgeon. At this time, she requires plastic surgery consultation and management. I think that Dr. Watson is a very good candidate for this kind of procedure or after she is discharged, she can continue her treatment with the plastic surgeon at [facility]. At this time, I am unable to help this patient with this chronic hidradenitis. Karissa Trent M.D. DR: Pily JOB#: [id number] CC: RONDA
[2016-06-15 20:00] VITALS: BP 113/70
[2016-06-15] MEDS: Cyclobenzaprine 10mg Tab ORAL SCH (21:00)
[2016-06-15] MEDS: cefTRIAXone 2 GM in D5W 110 ML IVPB SCH (23:36)
[2016-06-16] VITALS: BP 96/65
[2016-06-16] MEDS: DiphenhydrAMINE 50mg/ml Inj IVP PRN ×4 (00:13→18:33)
[2016-06-16] MEDS: Morphine Sulfate 2mg/ml Inj IVP PRN ×4 (02:52→19:38)
[2016-06-16] MEDS: chlordiazePOXIDE 25mg Cap ORAL PRN ×3 (02:56→15:00)
[2016-06-16] MEDS: Vancomycin 1 GM in D5W 275 ML IVPB SCH ×2 (03:02→16:37)
[2016-06-16 04:00] VITALS: BP 109/73
[2016-06-16] MEDS: metroNIDAZOLE 500mg 100 ML IVPB SCH ×3 (05:51→21:10)
[2016-06-16 06:37] LABS: MEAN CORPUSCULAR HEMOGLOBIN 38.9 PG (27.0-31.0); MEAN CORPUSCULAR HGB CONC 31.8 G/DL (32.0-36.0); MEAN CORPUSCULAR VOLUME 122 FL (80-99); MEAN PLATELET VOLUME 4.8 FL (6.5-10.1); PLATELET COUNT 215 K/UL (150-450); RED CELL DISTRIBUTION WIDTH 19.3 % (11.6-14.8); WHITE BLOOD COUNT 4.9 K/UL (4.8-10.8)
[2016-06-16 06:49] LABS: ANION GAP 12 (5-15); CALCIUM 7.7 mg/dL (8.6-10.2); CARBON DIOXIDE 25 mEQ/L (20-30); CHLORIDE 101 mEQ/L (98-107); CREATININE 0.6 mg/dL (0.5-0.9); GLOMERULAR FILTRATION RATE > 60 mL/min (>60); HEMOLYSIS 5; POTASSIUM 3.9 mEQ/L (3.4-4.9); SODIUM 138 mEQ/L (135-145)
[2016-06-16 08:09] VITALS: BP 96/50
[2016-06-16] MEDS: Thiamine 100mg tab ORAL SCH (08:43)
[2016-06-16] MEDS: Heparin 5000 units/ml inj SUBQ SCH ×2 (08:45→20:29)
--- NOTE | 2016-06-16 08:58 | General Progress Note ---
Assessment/Plan Assessment/Plan (1) Intractable pain (2) Hydradenitis (4) Lumbar DDD (5) Lumbar Spondylosis (6) Morbid obesity S/p gastric sleeve surgery (7) Abdominal pain The patient will be continued on tramadol, morphine, Maurepas and Neurontin. RX for Maurepas 5/325mg PO 1 tab Q4-6H PRN 30 tabs was written for discharge. The patient was discussed with Dr. Art and Dr. Art concurred. Subjective Date patient seen: Jun 16, 2016 Time patient seen: 07:30 - am Allergies: Coded Allergies: IBUPROFEN (Verified Allergy, Severe, Anaphylaxis, 06/12/16) swollen face and lips NSAIDS (NON-STEROIDAL ANTI-INFLAMMA (Verified Allergy, Severe, Anaphylaxis , 06/12/16) swollen face and lips Uncoded Allergies: NSAIDS include Ibuprofen (Adverse Reaction, Severe, Anaphylaxis, 06/11/16) Swollen face and lip Subjective REVIEW OF SYSTEMS: Denies rash, fever, chills, sweating, dizziness, drowsiness, blurred vision, sore throat, or change in her weight. No shortness of breath or chest pain. No nausea or vomiting at this time. No bowel or bladder incontinence. No dysuria. She is complaining of abdominal pain, back pain, right armpit pain, and lower extremity pain. SUBJECTIVE: Her pain has been is controlled on the medications. Pt would like to be discharged home with home health. RX will be written in anticipation for discharge. Objective Last 24 Hour Vital Signs Date Time Temp Pulse Resp B/P Pulse Ox O2 Delivery O2 Flow Rate FiO2 06/16/16 08:09 97.6 103 20 96/50 98 Room Air 06/16/16 07:45 95 20 Room Air 06/16/16 04:00 97.5 91 18 109/73 97 Room Air 06/16/16 00:00 97.0 96 18 96/65 100 Room Air 06/15/16 22:29 97.9 06/15/16 21:09 97.9 06/15/16 20:00 97.8 95 20 113/70 100 Room Air 06/15/16 19:56 93 20 Room Air 21 06/15/16 16:00 97.8 97 20 136/81 97 Room Air 06/15/16 12:15 97.9 96 20 125/75 98 Room Air 06/15/16 12:00 96 112 118 06/15/16 09:50 99 18 Room Air 21 Intake and Output 06/15/16 06/16/16 19:00 07:00 Intake Total 1045 ml 570 ml Balance 1045 ml 570 ml Intake Oral 520 ml 360 ml IV Total 525 ml 210 ml # Voids 2 6 # Bowel Movements 1 Laboratory Tests 06/16/16 05:55: White Blood Count 4.9, Red Blood Count 2.10L, Hemoglobin 8.1L, Hematocrit 25.6L , Mean Corpuscular Volume 122H, Mean Corpuscular Hemoglobin 38.9H, Mean Corpuscular Hemoglobin Concent 31.8L, Red Cell Distribution Width 19.3H, Platelet Count 215, Mean Platelet Volume 4.8L, Neutrophils (%) (Auto) , Lymphocytes (%) (Auto) , Monocytes (%) (Auto) , Eosinophils (%) (Auto) , Basophils (%) (Auto) , Neutrophils % (Manual) [Pending], Lymphocytes % (Manual) [Pending], Platelet Estimate [Pending], Platelet Morphology [Pending], Sodium Level 138, Potassium Level 3.9, Chloride Level 101, Carbon Dioxide Level 25, Anion Gap 12, Blood Urea Nitrogen 6L, Creatinine 0.6, Estimat Glomerular Filtration Rate > 60, Glucose Level 81, Calcium Level 7.7L Height (Feet): 5 Height (Inches): 8.00 Weight (Pounds): 145 Objective PHYSICAL EXAMINATION: GENERAL: Alert, awake, and oriented x3. HEENT: PERRLA. NECK: Range of motion is full in all directions. No tenderness. No adenopathy. LUNGS: Clear. HEART: Regular. ABDOMEN: Tenderness to palpation. BACK: Range of motion is decreased in flexion and extension with tenderness to paraspinal muscles and trapezial muscles. EXTREMITIES: Motor is intact. No cyanosis. No clubbing. NEURO: No changes. Procedure: MRI C Spine w/wo Contrast Findings: Comparison: None Spinal cord demonstrates normal configuration and signal characteristics. No intradural or extradural mass, fluid collection, other signal abnormality or abnormal enhancement. Spinal canal, lateral recesses and neural foramina normal caliber throughout. Cervical vertebrae are normal in configuration and marrow signal characteristics, normally aligned. Intervertebral discs are normal in height, signal, and configuration. No significant annular bulge/protrusion or marginal osteophyte formation. Paraspinous soft tissues are unremarkable. IMPRESSION: Negative MRI of the cervical spine without and with gadolinium Procedure: MRI T Spine w/wo Contrast Motion artifact degrades all images. Spinal cord demonstrates normal configuration and signal characteristics. No intradural or extradural mass, fluid collection, other signal abnormality or abnormal enhancement. Spinal canal, lateral recesses and neural foramina normal caliber throughout. Thoracic vertebrae are normal in configuration and marrow signal characteristics, normally aligned. T7-8 intervertebral disc mildly decreased in height and signal with mild posterior protrusion. T10-11 intervertebral disc mildly decreased in height and signal with anterior annular bulge-osteophyte complex. Remainder of intervertebral discs are normal in height, signal, and configuration. Paraspinous soft tissues are unremarkable. IMPRESSION: Multilevel mild degenerative disc disease. No obvious neural impingement. Otherwise negative MRI of the thoracic without and with gadolinium OMARI LUA Jun 16, 2016 08:58
[2016-06-16 09:03] LABS: ANISOCYTOSIS 2+; BAND NEUTROPHILS % (MANUAL) 0 % (0-8); BASOPHILS % (MANUAL) 0 % (0-2); EOSINOPHILS % (MANUAL) 4 % (0-3); HYPOCHROMASIA 3+; LYMPHOCYTES % (MANUAL) 39 % (20-45); MACROCYTES 3+; NEUTROPHILS % (MANUAL) 46 % (45-75); PLATELET ESTIMATE ADEQUATE; TOTAL CELLS COUNTED 100
[2016-06-16 09:04] LABS: PLATELET MORPHOLOGY NORMAL
--- NOTE | 2016-06-16 10:25 | General Progress Note ---
Assessment/Plan Status: stable Assessment/Plan - Dehydration, Hypokalemia - Sepsis - Abdominal pain , abnormal LFTs - Severe anemia - Acute alcohol intoxication, fatty infilt liver - UTI (urinary tract infection) - Ascending paraparesis,r/o spinal cotd compression r/o GBS Plan: K supplements- as needed Per consultants- monitor renal parameters and electrolytes- not much to add from renal stand point Subjective ROS Limited/Unobtainable: No Allergies: Coded Allergies: IBUPROFEN (Verified Allergy, Severe, Anaphylaxis, 06/12/16) swollen face and lips NSAIDS (NON-STEROIDAL ANTI-INFLAMMA (Verified Allergy, Severe, Anaphylaxis , 06/12/16) swollen face and lips Uncoded Allergies: NSAIDS include Ibuprofen (Adverse Reaction, Severe, Anaphylaxis, 06/11/16) Swollen face and lip Objective Last 24 Hour Vital Signs Date Time Temp Pulse Resp B/P Pulse Ox O2 Delivery O2 Flow Rate FiO2 06/16/16 09:36 103 105 124 06/16/16 08:09 97.6 103 20 96/50 98 Room Air 06/16/16 07:45 95 20 Room Air 21 06/16/16 04:00 97.5 91 18 109/73 97 Room Air 06/16/16 00:00 97.0 96 18 96/65 100 Room Air 06/15/16 22:29 97.9 06/15/16 21:09 97.9 06/15/16 20:00 97.8 95 20 113/70 100 Room Air 06/15/16 19:56 93 20 Room Air 21 06/15/16 16:00 97.8 97 20 136/81 97 Room Air 06/15/16 12:15 97.9 96 20 125/75 98 Room Air 06/15/16 12:00 96 112 118 Intake and Output 06/15/16 06/16/16 19:00 07:00 Intake Total 1045 ml 570 ml Balance 1045 ml 570 ml Intake Oral 520 ml 360 ml IV Total 525 ml 210 ml # Voids 2 6 # Bowel Movements 1 Laboratory Tests 06/16/16 05:55: White Blood Count 4.9, Red Blood Count 2.10L, Hemoglobin 8.1L, Hematocrit 25.6L , Mean Corpuscular Volume 122H, Mean Corpuscular Hemoglobin 38.9H, Mean Corpuscular Hemoglobin Concent 31.8L, Red Cell Distribution Width 19.3H, Platelet Count 215, Mean Platelet Volume 4.8L, Neutrophils (%) (Auto) , Lymphocytes (%) (Auto) , Monocytes (%) (Auto) , Eosinophils (%) (Auto) , Basophils (%) (Auto) , Differential Total Cells Counted 100, Neutrophils % ( Manual) 46, Lymphocytes % (Manual) 39, Monocytes % (Manual) 11H, Eosinophils % ( Manual) 4H, Basophils % (Manual) 0, Band Neutrophils 0, Platelet Estimate Adequate, Platelet Morphology Normal, Hypochromasia 3+, Anisocytosis 2+, Macrocytosis 3+, Sodium Level 138, Potassium Level 3.9, Chloride Level 101, Carbon Dioxide Level 25, Anion Gap 12, Blood Urea Nitrogen 6L, Creatinine 0.6, Estimat Glomerular Filtration Rate > 60, Glucose Level 81, Calcium Level 7.7L, Lipase 207H Height (Feet): 5 Height (Inches): 8.00 Weight (Pounds): 145 General Appearance: no apparent distress ROSA COYLE Jun 16, 2016 10:25
--- NOTE | 2016-06-16 11:31 | GI Initial Consult Note ---
History of Present Illness General Date patient seen: Jun 16, 2016 Time patient seen: 10:00 Reason for Hospitalization: Abdominal Pain Referring physician: PIETER GAUTHIER Reason for Consultation: ABDOMINAL PAIN Present Illness HPI CHIEF COMPLAINT: Abdominal pain, nausea, and vomiting for two days, UTI, sepsis , and tachycardia. HISTORY OF PRESENT ILLNESS: The patient is a 40-year-old female from home, presents with the above-mentioned diagnosis with high lactic acid levels, very weak, and lower extremity weakness as well, admitted to the ICU for further care. Currently, weak in the bed in the ICU. Slight nausea. No vomiting. No complaints. GI CONSULT: Initial HPI noted above. GI consulted for abdominal pain and clearance for discharge. Pt seen on floor, awake A&Ox4 NAD ambulating with PT. Pt continues to complain of abdominal pain, however, is more tolerable at this time. The patient admitted to ETOH use prior to her episodes of abdominal pain and N/V. She states now her legs feel numb and she can barely walk. Venous duplex noted to be negative. APCT was performed and unremarkable. LP unremarkable. Hep panel negative. She presents with chronic anemia, abnormal LFTs, hypoalbuminemia, elevated lipase, elevated iron levels, and elevated lactic acid. Hx of gastric sleeve. Home Meds Reported Medications No Known Medications* (NKM - No Known Medications*) ., 0 . 03/24/12 Med list reviewed/reconciled: Yes Allergies: Coded Allergies: IBUPROFEN (Verified Allergy, Severe, Anaphylaxis, 06/12/16) swollen face and lips NSAIDS (NON-STEROIDAL ANTI-INFLAMMA (Verified Allergy, Severe, Anaphylaxis , 06/12/16) swollen face and lips Uncoded Allergies: NSAIDS include Ibuprofen (Adverse Reaction, Severe, Anaphylaxis, 06/11/16) Swollen face and lip Patient History History Provided By: Patient, Medical Record [facility] Narrative PAST MEDICAL HISTORY: Includes a lower extremity weakness and abdominal pain. PAST SURGICAL HISTORY: Hidradenitis and weight loss surgery. Social History: Reports: alcohol use Review of Systems All Other Systems: negative except mentioned in HPI Physical Exam Vital Signs Date Time Temp Pulse Resp B/P Pulse Ox O2 Delivery O2 Flow Rate FiO2 06/12/16 07:00 96 19 Room Air 21 06/12/16 08:00 99.1 133/88 100 06/13/16 06:30 2.0 Sp02 EP Interpretation: reviewed Labs Laboratory Tests Test 06/16/16 05:55 White Blood Count 4.9 K/UL (4.8-10.8) Red Blood Count 2.10 M/UL (4.20-5.40) L Hemoglobin 8.1 G/DL (12.0-16.0) L Hematocrit 25.6 % (37.0-47.0) L Mean Corpuscular Volume 122 FL (80-99) H Mean Corpuscular Hemoglobin 38.9 PG (27.0-31.0) H Mean Corpuscular Hemoglobin Concent 31.8 G/DL (32.0-36.0) L Red Cell Distribution Width 19.3 % (11.6-14.8) H Platelet Count 215 K/UL (150-450) Mean Platelet Volume 4.8 FL (6.5-10.1) L Neutrophils (%) (Auto) % (45.0-75.0) Lymphocytes (%) (Auto) % (20.0-45.0) Monocytes (%) (Auto) % (1.0-10.0) Eosinophils (%) (Auto) % (0.0-3.0) Basophils (%) (Auto) % (0.0-2.0) Differential Total Cells Counted 100 Neutrophils % (Manual) 46 % (45-75) Lymphocytes % (Manual) 39 % (20-45) Monocytes % (Manual) 11 % (1-10) H Eosinophils % (Manual) 4 % (0-3) H Basophils % (Manual) 0 % (0-2) Band Neutrophils 0 % (0-8) Platelet Estimate Adequate Platelet Morphology Normal Hypochromasia 3+ Anisocytosis 2+ Macrocytosis 3+ Sodium Level 138 mEQ/L (135-145) Potassium Level 3.9 mEQ/L (3.4-4.9) Chloride Level 101 mEQ/L (98-107) Carbon Dioxide Level 25 mEQ/L (20-30) Anion Gap 12 (5-15) Blood Urea Nitrogen 6 mg/dL (7-23) L Creatinine 0.6 mg/dL (0.5-0.9) Estimat Glomerular Filtration Rate > 60 mL/min (>60) Glucose Level 81 mg/dL (74-106) Calcium Level 7.7 mg/dL (8.6-10.2) L Lipase 207 U/L (< 60) H General Appearance: well appearing, no apparent distress, alert Head: normocephalic EENT: normal ENT inspection Neck: full range of motion, supple Respiratory: normal breath sounds, no respiratory distress Cardiovascular: normal peripheral pulses, normal rate Gastrointestinal: normal inspection, non tender, soft, normal bowel sounds Rectal: deferred Genitourinary: normal inspection Musculoskeletal: normal inspection, back normal Neurologic: alert, oriented x3, responsive Psychiatric: normal inspection, judgement/insight normal, memory normal Skin: normal inspection, normal color, no rash, warm/dry Lymphatic: normal inspection, no adenopathy Current Medications Current Medications Medications (Trade) Dose Ordered Sig/Payam Route PRN Reason Start Time Stop Time Status Last Admin Dose Admin Acetaminophen (Tylenol) 650 mg Q4H PRN ORAL T>100.5 06/14/16 15:30 07/14/16 15:29 Acetaminophen/ Hydrocodone Bitart (Homer 10/325) 1 ea Q4H PRN ORAL moderate pain 06/14/16 14:45 06/21/16 14:44 06/15/16 20:10 Albuterol/ Ipratropium (DuoNeb 0.5-3(2.5)mg/3ml) 3 ml Q4H PRN HHN Shortness of Breath 06/14/16 15:30 06/19/16 15:29 Ceftriaxone Sodium/Dextrose (Rocephin/D5W) 110 ml @ 220 mls/hr Q24H IVPB 06/14/16 23:00 06/21/16 22:59 06/15/16 23:36 Chlordiazepoxide (Librium) 25 mg Q6H PRN ORAL anxiety, tachycardia 06/14/16 15:45 06/21/16 15:44 06/16/16 08:57 Clotrimazole (Lotrimin) 1 applic EVERY 12 HOURS TOPIC 06/15/16 09:00 07/15/16 08:59 06/15/16 20:17 Cyclobenzaprine HCl (Flexeril) 10 mg BEDTIME ORAL 06/14/16 21:00 07/14/16 20:59 06/14/16 20:59 Diphenhydramine HCl (Benadryl) 25 mg Q6H PRN IVP Itching 06/14/16 15:45 07/14/16 15:44 06/16/16 06:00 Folic Acid (Folate) 1 mg DAILY ORAL 06/16/16 09:00 07/16/16 08:59 06/16/16 08:42 Gabapentin (Neurontin) 300 mg THREE TIMES A DAY ORAL 06/14/16 18:00 07/14/16 17:59 06/16/16 08:42 Heparin Sodium (Porcine) (Heparin 5000 units/ml) 5,000 units EVERY 12 HOURS SUBQ 06/14/16 21:00 07/14/16 20:59 06/16/16 08:45 Metronidazole 100 ml @ 100 mls/hr Q8H IVPB 06/14/16 22:00 06/21/16 21:59 06/16/16 05:51 Morphine Sulfate (Morphine Sulfate) 2 mg Q4H PRN IVP PAIN 7-10 06/14/16 15:30 06/21/16 15:29 06/16/16 08:57 Multivitamins (Multivitamins) 1 tab DAILY ORAL 06/16/16 09:00 07/16/16 08:59 06/16/16 08:42 Nitroglycerin (Ntg) 0.4 mg Q5MIN X 3 DOSES PRN SL Prn Chest Pain 06/14/16 14:45 07/14/16 14:44 Ondansetron HCl (Zofran) 4 mg Q6H PRN IVP Nausea & Vomiting 06/14/16 15:30 07/14/16 15:29 06/16/16 05:58 Polyethylene Glycol (Miralax) 17 gm DAILYPRN PRN ORAL Constipation 06/15/16 15:30 07/15/16 15:29 Temazepam (Restoril) 15 mg HSPRN PRN ORAL Insomnia 06/14/16 15:30 06/21/16 15:29 06/15/16 22:07 Thiamine HCl (Vitamin B1) 100 mg DAILY ORAL 06/16/16 09:00 07/16/16 08:59 06/16/16 08:43 Tramadol HCl 50 mg 50 mg Q6H PRN ORAL Mild Pain (Pain Scale 1-3) 06/14/16 15:15 06/21/16 15:14 Vancomycin HCl (Vanco rx to dose) 1 ea DAILY PRN MISC . 06/15/16 09:00 07/15/16 08:59 Vancomycin HCl/ Dextrose (Vancomycin/D5W) 275 ml @ 183.708 mls/hr Q12HR@0400,1600 IVPB 06/14/16 16:00 06/19/16 15:59 06/16/16 03:02 GI: Plan Problems: (1) Alcoholic pancreatitis (2) Abdominal pain (3) Weak (4) Pancytopenia (5) Severe anemia (6) Acute alcohol intoxication Plan ok for DC per GI standpoint APCT reviewed LP reviewed hep panel negative iron elevation elevated lactic acid AST:ALT 2:1 resolving acute alcoholic pancreatitis stable H&H elevated lipase >> pt pain resolving PT evaluation noted regular diet tolerated pain mgmt alcoholic cessation education given Discussed with Dr. Jones. Thank you for referring this patient. Nayeli Box N.P. Jun 16, 2016 11:31
[2016-06-16 11:42] VITALS: BP 94/62
[2016-06-16] MEDS: Norco 10mg/325mg tab ORAL PRN (12:30)
--- NOTE | 2016-06-16 13:44 | General Progress Note ---
Assessment/Plan Problem List: (1) Abdominal pain ICD Codes: R10.9 - Unspecified abdominal pain SNOMED: 48341722 (2) Pancytopenia ICD Codes: D61.818 - Other pancytopenia SNOMED: 043464190 (3) Weak ICD Codes: R53.1 - Weakness SNOMED: 69471578 (4) UTI (urinary tract infection) ICD Codes: N39.0 - Urinary tract infection, site not specified SNOMED: 22425833 (5) Acidosis ICD Codes: E87.2 - Acidosis SNOMED: 56201126 Status: stable, progressing, tolerating diet Assessment/Plan ot pt diet abx hem eval cbc bmp ltach vs hh Subjective Constitutional: Reports: weakness Allergies: Coded Allergies: IBUPROFEN (Verified Allergy, Severe, Anaphylaxis, 06/12/16) swollen face and lips NSAIDS (NON-STEROIDAL ANTI-INFLAMMA (Verified Allergy, Severe, Anaphylaxis , 06/12/16) swollen face and lips Uncoded Allergies: NSAIDS include Ibuprofen (Adverse Reaction, Severe, Anaphylaxis, 06/11/16) Swollen face and lip All Systems: reviewed and negative except above Subjective calm in bed Objective Last 24 Hour Vital Signs Date Time Temp Pulse Resp B/P Pulse Ox O2 Delivery O2 Flow Rate FiO2 06/16/16 11:42 97.6 91 18 94/62 100 Room Air 06/16/16 09:36 103 105 124 06/16/16 09:27 97.6 06/16/16 08:09 97.6 103 20 96/50 98 Room Air 06/16/16 07:45 95 20 Room Air 06/16/16 04:00 97.5 91 18 109/73 97 Room Air 06/16/16 00:00 97.0 96 18 96/65 100 Room Air 06/15/16 21:09 97.9 06/15/16 20:00 97.8 95 20 113/70 100 Room Air 06/15/16 19:56 93 20 Room Air 21 06/15/16 16:00 97.8 97 20 136/81 97 Room Air Intake and Output 06/15/16 06/16/16 19:00 07:00 Intake Total 1045 ml 570 ml Balance 1045 ml 570 ml Intake Oral 520 ml 360 ml IV Total 525 ml 210 ml # Voids 2 6 # Bowel Movements 1 Laboratory Tests 06/16/16 05:55: White Blood Count 4.9, Red Blood Count 2.10L, Hemoglobin 8.1L, Hematocrit 25.6L , Mean Corpuscular Volume 122H, Mean Corpuscular Hemoglobin 38.9H, Mean Corpuscular Hemoglobin Concent 31.8L, Red Cell Distribution Width 19.3H, Platelet Count 215, Mean Platelet Volume 4.8L, Neutrophils (%) (Auto) , Lymphocytes (%) (Auto) , Monocytes (%) (Auto) , Eosinophils (%) (Auto) , Basophils (%) (Auto) , Differential Total Cells Counted 100, Neutrophils % ( Manual) 46, Lymphocytes % (Manual) 39, Monocytes % (Manual) 11H, Eosinophils % ( Manual) 4H, Basophils % (Manual) 0, Band Neutrophils 0, Platelet Estimate Adequate, Platelet Morphology Normal, Hypochromasia 3+, Anisocytosis 2+, Macrocytosis 3+, Sodium Level 138, Potassium Level 3.9, Chloride Level 101, Carbon Dioxide Level 25, Anion Gap 12, Blood Urea Nitrogen 6L, Creatinine 0.6, Estimat Glomerular Filtration Rate > 60, Glucose Level 81, Calcium Level 7.7L, Lipase 207H Height (Feet): 5 Height (Inches): 8.00 Weight (Pounds): 145 General Appearance: alert EENT: normal ENT inspection Neck: normal alignment Cardiovascular: normal peripheral pulses, normal rate, regular rhythm Respiratory/Chest: chest wall non-tender, lungs clear, normal breath sounds Abdomen: normal bowel sounds, non tender, soft Extremities: normal inspection Edema: no edema noted Arm (L), no edema noted Arm (R), no edema noted Leg (L), no edema noted Leg (R), no edema noted Pedal (L), no edema noted Pedal (R), no edema noted Generalized Neurologic: responsive, motor weakness Skin: normal pigmentation, warm/dry PIETER GAUTHIER Jun 16, 2016 13:44
--- NOTE | 2016-06-16 16:03 | General Progress Note ---
Assessment/Plan Assessment/Plan ASSESSMENT: 1. Anemia secondary to chronic disease - likely related to alcohol use 2. Pancytopenia concerning for alcohol myelosuppression (should improve in next few days) 3. Leukopenia, possibly secondary to sepsis. Is stable. 4. Thrombocytopenia, potentially secondary to etoh myelosuppresion v meds 5. Abdominal pain. 6. Acute alcohol intoxication. 7. Urinary tract infection RECOMMENDATIONS: 1. Monitor counts - slowly better off etohd 2. Transfuse hemoglobin goal> 7 3. Transfuse of platelets goal > 20k 4. Will review CBC by , if not improved, get a bone marrow biopsy. Likely etoh related given macrocytosis 5. Alcohol cessation therapy, AA 6. Follow up on pain management, Pulmonary, ID, and Cardiology, neuro recs 7. Reviewed anemia w/u 8. Staff Thank you, Stephon Fontenot MD Subjective Constitutional: Reports: no symptoms HEENT: Reports: no symptoms Cardiovascular: Reports: no symptoms Respiratory: Reports: no symptoms Gastrointestinal/Abdominal: Reports: poor appetite Genitourinary: Reports: no symptoms Neurologic/Psychiatric: Reports: no symptoms Endocrine: Reports: no symptoms Hematologic/Lymphatic: Reports: anemia Allergies: Coded Allergies: IBUPROFEN (Verified Allergy, Severe, Anaphylaxis, 06/12/16) swollen face and lips NSAIDS (NON-STEROIDAL ANTI-INFLAMMA (Verified Allergy, Severe, Anaphylaxis , 06/12/16) swollen face and lips Uncoded Allergies: NSAIDS include Ibuprofen (Adverse Reaction, Severe, Anaphylaxis, 06/11/16) Swollen face and lip Subjective stable, no fevers, not bleeding, no complaints, no hematochezia or hematemesis Objective Last 24 Hour Vital Signs Date Time Temp Pulse Resp B/P Pulse Ox O2 Delivery O2 Flow Rate FiO2 06/16/16 15:34 97.6 06/16/16 13:29 97.6 06/16/16 11:42 97.6 91 18 94/62 100 Room Air 06/16/16 09:36 103 105 124 06/16/16 08:09 97.6 103 20 96/50 98 Room Air 06/16/16 07:45 95 20 Room Air 21 06/16/16 04:00 97.5 91 18 109/73 97 Room Air 06/16/16 00:00 97.0 96 18 96/65 100 Room Air 06/15/16 20:00 97.8 95 20 113/70 100 Room Air 06/15/16 19:56 93 20 Room Air 21 Intake and Output 06/15/16 06/16/16 19:00 07:00 Intake Total 1045 ml 570 ml Balance 1045 ml 570 ml Intake Oral 520 ml 360 ml IV Total 525 ml 210 ml # Voids 2 6 # Bowel Movements 1 Laboratory Tests 06/16/16 05:55: White Blood Count 4.9, Red Blood Count 2.10L, Hemoglobin 8.1L, Hematocrit 25.6L , Mean Corpuscular Volume 122H, Mean Corpuscular Hemoglobin 38.9H, Mean Corpuscular Hemoglobin Concent 31.8L, Red Cell Distribution Width 19.3H, Platelet Count 215, Mean Platelet Volume 4.8L, Neutrophils (%) (Auto) , Lymphocytes (%) (Auto) , Monocytes (%) (Auto) , Eosinophils (%) (Auto) , Basophils (%) (Auto) , Differential Total Cells Counted 100, Neutrophils % ( Manual) 46, Lymphocytes % (Manual) 39, Monocytes % (Manual) 11H, Eosinophils % ( Manual) 4H, Basophils % (Manual) 0, Band Neutrophils 0, Platelet Estimate Adequate, Platelet Morphology Normal, Hypochromasia 3+, Anisocytosis 2+, Macrocytosis 3+, Sodium Level 138, Potassium Level 3.9, Chloride Level 101, Carbon Dioxide Level 25, Anion Gap 12, Blood Urea Nitrogen 6L, Creatinine 0.6, Estimat Glomerular Filtration Rate > 60, Glucose Level 81, Calcium Level 7.7L, Lipase 207H 06/16/16 14:50: Random Vancomycin Level 10.3 Height (Feet): 5 Height (Inches): 8.00 Weight (Pounds): 145 General Appearance: lethargic EENT: normal ENT inspection Neck: supple Cardiovascular: no JVD Respiratory/Chest: normal breath sounds Abdomen: no organomegaly Extremities: non-tender Edema: 1+ Leg (L), 1+ Leg (R) Edema: mild edema Neurologic: no motor/sensory deficits Skin: warm/dry Stephon Fontenot Jun 16, 2016 16:03
[2016-06-16 16:10] VITALS: BP 101/65
[2016-06-16] MEDS ORDERED: NS 275ml ONE (17:43)
[2016-06-16] MEDS ORDERED: Tubing IV Secondary IV ONE (17:43)
--- NOTE | 2016-06-16 17:48 | Infectious Diseases Prog Note ---
Assessment/Plan Problems: (1) Sepsis Assessment & Plan: less likely with negative blood culture , will narrow down her antibiotics to cover UTI only (2) UTI (urinary tract infection) Assessment & Plan: with culture grew pansensitive E coli, currently on cefepime , will switch to ceftriaxon to treat for 7 days (3) Ovarian cyst Assessment & Plan: recommend transvaginal US and follow up with [facility] (4) Acute alcohol intoxication Assessment & Plan: needs counsling and rehabilitation, monitor in ICU, watch out for alcohol withdrawal. 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 Subjective Constitutional: Reports: fatigue Neurologic: Reports: numbness, weakness Skin: Reports: other - hidradentitis Allergies: Coded Allergies: IBUPROFEN (Verified Allergy, Severe, Anaphylaxis, 06/12/16) swollen face and lips NSAIDS (NON-STEROIDAL ANTI-INFLAMMA (Verified Allergy, Severe, Anaphylaxis , 06/12/16) swollen face and lips Uncoded Allergies: NSAIDS include Ibuprofen (Adverse Reaction, Severe, Anaphylaxis, 06/11/16) Swollen face and lip Objective Vital Signs Last 24 Hour Vital Signs Date Time Temp Pulse Resp B/P Pulse Ox O2 Delivery O2 Flow Rate FiO2 06/16/16 16:10 97.3 92 18 101/65 100 Room Air 06/16/16 15:34 97.6 06/16/16 13:29 97.6 06/16/16 11:42 97.6 91 18 94/62 100 Room Air 06/16/16 09:36 103 105 124 06/16/16 08:09 97.6 103 20 96/50 98 Room Air 06/16/16 07:45 95 20 Room Air 21 06/16/16 04:00 97.5 91 18 109/73 97 Room Air 06/16/16 00:00 97.0 96 18 96/65 100 Room Air 06/15/16 20:00 97.8 95 20 113/70 100 Room Air 06/15/16 19:56 93 20 Room Air 21 Height (Feet): 5 Height (Inches): 8.00 Weight (Pounds): 145 General Appearance: WD/WN, no acute distress HEENT: normocephalic, atraumatic, anicteric, mucous membranes moist Respiratory/Chest: chest wall non-tender, lungs clear, normal breath sounds, no respiratory distress, no accessory muscle use Cardiovascular: normal peripheral pulses, normal rate, regular rhythm, no gallop/murmur Abdomen: normal bowel sounds, soft, non tender, no organomegaly, non distended , no mass Extremities: no cyanosis, no clubbing, other - right hidradenitis Skin: no rash, no lesions, ulcers Laboratory Tests Test 06/16/16 05:55 06/16/16 14:50 White Blood Count 4.9 K/UL (4.8-10.8) Red Blood Count 2.10 M/UL (4.20-5.40) L Hemoglobin 8.1 G/DL (12.0-16.0) L Hematocrit 25.6 % (37.0-47.0) L Mean Corpuscular Volume 122 FL (80-99) H Mean Corpuscular Hemoglobin 38.9 PG (27.0-31.0) H Mean Corpuscular Hemoglobin Concent 31.8 G/DL (32.0-36.0) L Red Cell Distribution Width 19.3 % (11.6-14.8) H Platelet Count 215 K/UL (150-450) Mean Platelet Volume 4.8 FL (6.5-10.1) L Neutrophils (%) (Auto) % (45.0-75.0) Lymphocytes (%) (Auto) % (20.0-45.0) Monocytes (%) (Auto) % (1.0-10.0) Eosinophils (%) (Auto) % (0.0-3.0) Basophils (%) (Auto) % (0.0-2.0) Differential Total Cells Counted 100 Neutrophils % (Manual) 46 % (45-75) Lymphocytes % (Manual) 39 % (20-45) Monocytes % (Manual) 11 % (1-10) H Eosinophils % (Manual) 4 % (0-3) H Basophils % (Manual) 0 % (0-2) Band Neutrophils 0 % (0-8) Platelet Estimate Adequate Platelet Morphology Normal Hypochromasia 3+ Anisocytosis 2+ Macrocytosis 3+ Sodium Level 138 mEQ/L (135-145) Potassium Level 3.9 mEQ/L (3.4-4.9) Chloride Level 101 mEQ/L (98-107) Carbon Dioxide Level 25 mEQ/L (20-30) Anion Gap 12 (5-15) Blood Urea Nitrogen 6 mg/dL (7-23) L Creatinine 0.6 mg/dL (0.5-0.9) Estimat Glomerular Filtration Rate > 60 mL/min (>60) Glucose Level 81 mg/dL (74-106) Calcium Level 7.7 mg/dL (8.6-10.2) L Lipase 207 U/L (< 60) H Random Vancomycin Level 10.3 ug/mL Current Medications Medications (Trade) Dose Ordered Sig/Payam Route PRN Reason Start Time Stop Time Status Last Admin Dose Admin Acetaminophen (Tylenol) 650 mg Q4H PRN ORAL T>100.5 06/14/16 15:30 07/14/16 15:29 Acetaminophen/ Hydrocodone Bitart ([place] 10/325) 1 ea Q4H PRN ORAL moderate pain 06/14/16 14:45 06/21/16 14:44 06/16/16 12:30 Albuterol/ Ipratropium (DuoNeb 0.5-3(2.5)mg/3ml) 3 ml Q4H PRN HHN Shortness of Breath 06/14/16 15:30 06/19/16 15:29 Ceftriaxone Sodium/Dextrose (Rocephin/D5W) 110 ml @ 220 mls/hr Q24H IVPB 06/14/16 23:00 06/21/16 22:59 06/15/16 23:36 Chlordiazepoxide (Librium) 25 mg Q6H PRN ORAL anxiety, tachycardia 06/14/16 15:45 06/21/16 15:44 06/16/16 15:00 Clotrimazole (Lotrimin) 1 applic EVERY 12 HOURS TOPIC 06/15/16 09:00 07/15/16 08:59 06/16/16 12:40 Cyclobenzaprine HCl (Flexeril) 10 mg BEDTIME ORAL 06/14/16 21:00 07/14/16 20:59 06/14/16 20:59 Diphenhydramine HCl (Benadryl) 25 mg Q6H PRN IVP Itching 06/14/16 15:45 07/14/16 15:44 06/16/16 12:30 Folic Acid (Folate) 1 mg DAILY ORAL 06/16/16 09:00 07/16/16 08:59 06/16/16 08:42 Gabapentin (Neurontin) 300 mg THREE TIMES A DAY ORAL 06/14/16 18:00 07/14/16 17:59 06/16/16 12:29 Heparin Sodium (Porcine) (Heparin 5000 units/ml) 5,000 units EVERY 12 HOURS SUBQ 06/14/16 21:00 07/14/16 20:59 06/16/16 08:45 Metronidazole 100 ml @ 100 mls/hr Q8H IVPB 06/14/16 22:00 06/21/16 21:59 06/16/16 14:59 Morphine Sulfate (Morphine Sulfate) 2 mg Q4H PRN IVP PAIN 7-10 06/14/16 15:30 06/21/16 15:29 06/16/16 14:59 Multivitamins (Multivitamins) 1 tab DAILY ORAL 06/16/16 09:00 07/16/16 08:59 06/16/16 08:42 Nitroglycerin (Ntg) 0.4 mg Q5MIN X 3 DOSES PRN SL Prn Chest Pain 06/14/16 14:45 07/14/16 14:44 Ondansetron HCl (Zofran) 4 mg Q6H PRN IVP Nausea & Vomiting 06/14/16 15:30 07/14/16 15:29 06/16/16 12:30 Polyethylene Glycol (Miralax) 17 gm DAILYPRN PRN ORAL Constipation 06/15/16 15:30 07/15/16 15:29 Temazepam (Restoril) 15 mg HSPRN PRN ORAL Insomnia 06/14/16 15:30 06/21/16 15:29 06/15/16 22:07 Thiamine HCl (Vitamin B1) 100 mg DAILY ORAL 06/16/16 09:00 07/16/16 08:59 06/16/16 08:43 Tramadol HCl 50 mg 50 mg Q6H PRN ORAL Mild Pain (Pain Scale 1-3) 06/14/16 15:15 06/21/16 15:14 Vancomycin HCl (Vanco rx to dose) 1 ea DAILY PRN MISC . 06/15/16 09:00 07/15/16 08:59 Vancomycin HCl/ Dextrose (Vancomycin/D5W) 275 ml @ 183.708 mls/hr Q12HR@0400,1600 IVPB 06/14/16 16:00 06/19/16 15:59 06/16/16 16:37 Brandan Rubin M.D. Jun 16, 2016 17:48
[2016-06-16 20:00] VITALS: BP 115/61
[2016-06-16] MEDS: Cyclobenzaprine 10mg Tab ORAL SCH (20:29)
--- NOTE | 2016-06-16 21:17 | Pulmonology Progress Note ---
Assessment/Plan Problems: (1) Sepsis (2) Abdominal pain (3) Severe anemia (4) Acute alcohol intoxication (5) UTI (urinary tract infection) Assessment/Plan iv hydration. advance diet check cultures continue antibiotics improving h/h stable awaiting plastic surgery to see her Subjective ROS Limited/Unobtainable: No Constitutional: Reports: no symptoms HEENT: Repors: no symptoms Allergies: Coded Allergies: IBUPROFEN (Verified Allergy, Severe, Anaphylaxis, 06/12/16) swollen face and lips NSAIDS (NON-STEROIDAL ANTI-INFLAMMA (Verified Allergy, Severe, Anaphylaxis , 06/12/16) swollen face and lips Uncoded Allergies: NSAIDS include Ibuprofen (Adverse Reaction, Severe, Anaphylaxis, 06/11/16) Swollen face and lip Objective Last 24 Hour Vital Signs Date Time Temp Pulse Resp B/P Pulse Ox O2 Delivery O2 Flow Rate FiO2 06/16/16 20:22 97.3 06/16/16 20:00 98.1 88 18 115/61 98 Room Air 06/16/16 19:24 98 20 Room Air 06/16/16 16:10 97.3 92 18 101/65 100 Room Air 06/16/16 13:29 97.6 06/16/16 11:42 97.6 91 18 94/62 100 Room Air 06/16/16 09:36 103 105 124 06/16/16 08:09 97.6 103 20 96/50 98 Room Air 06/16/16 07:45 95 20 Room Air 21 06/16/16 04:00 97.5 91 18 109/73 97 Room Air 06/16/16 00:00 97.0 96 18 96/65 100 Room Air Intake and Output 06/15/16 06/16/16 19:00 07:00 Intake Total 1045 ml 570 ml Balance 1045 ml 570 ml Intake Oral 520 ml 360 ml IV Total 525 ml 210 ml # Voids 2 6 # Bowel Movements 1 Objective General Appearance: WD/WN HEENT: normocephalic, atraumatic Respiratory/Chest: chest wall non-tender, lungs clear Cardiovascular: normal peripheral pulses, normal rate, regular rhythm Abdomen: normal bowel sounds, soft, non tender, no organomegaly Genitourinary: normal external genitalia Extremities: no cyanosis, no clubbing 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 normal Laboratory Tests 06/16/16 05:55: White Blood Count 4.9, Red Blood Count 2.10L, Hemoglobin 8.1L, Hematocrit 25.6L , Mean Corpuscular Volume 122H, Mean Corpuscular Hemoglobin 38.9H, Mean Corpuscular Hemoglobin Concent 31.8L, Red Cell Distribution Width 19.3H, Platelet Count 215, Mean Platelet Volume 4.8L, Neutrophils (%) (Auto) , Lymphocytes (%) (Auto) , Monocytes (%) (Auto) , Eosinophils (%) (Auto) , Basophils (%) (Auto) , Differential Total Cells Counted 100, Neutrophils % ( Manual) 46, Lymphocytes % (Manual) 39, Monocytes % (Manual) 11H, Eosinophils % ( Manual) 4H, Basophils % (Manual) 0, Band Neutrophils 0, Platelet Estimate Adequate, Platelet Morphology Normal, Hypochromasia 3+, Anisocytosis 2+, Macrocytosis 3+, Sodium Level 138, Potassium Level 3.9, Chloride Level 101, Carbon Dioxide Level 25, Anion Gap 12, Blood Urea Nitrogen 6L, Creatinine 0.6, Estimat Glomerular Filtration Rate > 60, Glucose Level 81, Calcium Level 7.7L, Lipase 207H 06/16/16 14:50: Random Vancomycin Level 10.3 Current Medications Medications (Trade) Dose Ordered Sig/Payam Route PRN Reason Start Time Stop Time Status Last Admin Dose Admin Acetaminophen (Tylenol) 650 mg Q4H PRN ORAL T>100.5 06/14/16 15:30 07/14/16 15:29 Acetaminophen/ Hydrocodone Bitart ([place] 10/325) 1 ea Q4H PRN ORAL moderate pain 06/14/16 14:45 06/21/16 14:44 06/16/16 12:30 Albuterol/ Ipratropium (DuoNeb 0.5-3(2.5)mg/3ml) 3 ml Q4H PRN HHN Shortness of Breath 06/14/16 15:30 06/19/16 15:29 Ceftriaxone Sodium/Dextrose (Rocephin/D5W) 110 ml @ 220 mls/hr Q24H IVPB 06/14/16 23:00 06/21/16 22:59 06/15/16 23:36 Chlordiazepoxide (Librium) 25 mg Q6H PRN ORAL anxiety, tachycardia 06/14/16 15:45 06/21/16 15:44 06/16/16 15:00 Clotrimazole (Lotrimin) 1 applic EVERY 12 HOURS TOPIC 06/15/16 09:00 07/15/16 08:59 06/16/16 12:40 Cyclobenzaprine HCl (Flexeril) 10 mg BEDTIME ORAL 06/14/16 21:00 07/14/16 20:59 06/14/16 20:59 Diphenhydramine HCl (Benadryl) 25 mg Q6H PRN IVP Itching 06/14/16 15:45 07/14/16 15:44 06/16/16 18:33 Folic Acid (Folate) 1 mg DAILY ORAL 06/16/16 09:00 07/16/16 08:59 06/16/16 08:42 Gabapentin (Neurontin) 300 mg THREE TIMES A DAY ORAL 06/14/16 18:00 07/14/16 17:59 06/16/16 18:33 Heparin Sodium (Porcine) (Heparin 5000 units/ml) 5,000 units EVERY 12 HOURS SUBQ 06/14/16 21:00 07/14/16 20:59 06/16/16 08:45 Metronidazole 100 ml @ 100 mls/hr Q8H IVPB 06/14/16 22:00 06/21/16 21:59 06/16/16 14:59 Morphine Sulfate (Morphine Sulfate) 2 mg Q4H PRN IVP PAIN 7-10 06/14/16 15:30 06/21/16 15:29 06/16/16 19:38 Multivitamins (Multivitamins) 1 tab DAILY ORAL 06/16/16 09:00 07/16/16 08:59 06/16/16 08:42 Nitroglycerin (Ntg) 0.4 mg Q5MIN X 3 DOSES PRN SL Prn Chest Pain 06/14/16 14:45 07/14/16 14:44 Ondansetron HCl (Zofran) 4 mg Q6H PRN IVP Nausea & Vomiting 06/14/16 15:30 07/14/16 15:29 06/16/16 18:33 Polyethylene Glycol (Miralax) 17 gm DAILYPRN PRN ORAL Constipation 06/15/16 15:30 07/15/16 15:29 Temazepam (Restoril) 15 mg HSPRN PRN ORAL Insomnia 06/14/16 15:30 06/21/16 15:29 06/16/16 19:38 Thiamine HCl (Vitamin B1) 100 mg DAILY ORAL 06/16/16 09:00 07/16/16 08:59 06/16/16 08:43 Tramadol HCl 50 mg 50 mg Q6H PRN ORAL Mild Pain (Pain Scale 1-3) 06/14/16 15:15 06/21/16 15:14 Vancomycin HCl (Vanco rx to dose) 1 ea DAILY PRN MISC . 06/15/16 09:00 07/15/16 08:59 Vancomycin HCl/ Dextrose (Vancomycin/D5W) 275 ml @ 183.708 mls/hr Q12HR@0400,1600 IVPB 06/14/16 16:00 06/19/16 15:59 06/16/16 16:37 DAVID CLARKE Jun 16, 2016 21:17
[2016-06-16] MEDS: cefTRIAXone 2 GM in D5W 110 ML IVPB SCH (22:16)
--- NOTE | 2016-06-16 22:17 | Neurology Progress Note ---
Interim History Interim History Interim History Ms. Trevino feels a little better. The legs are a little stronger. She was able to stand and walk a little better with the PT. The mind is clear. She complains of a generalized body ache. The altered sensation continues from her chest downwards. She denies any new neurologic symptoms. Review of Systems Neuro Review of Systems Benign. Objective Physical Exam Last Vital Signs Date Time Temp Pulse Resp B/P Pulse Ox O2 Delivery O2 Flow Rate FiO2 06/16/16 20:22 97.3 06/16/16 20:00 88 18 115/61 98 Room Air 06/16/16 07:45 21 06/13/16 06:30 2.0 Laboratory Tests Test 06/16/16 05:55 06/16/16 14:50 White Blood Count 4.9 K/UL (4.8-10.8) Red Blood Count 2.10 M/UL (4.20-5.40) L Hemoglobin 8.1 G/DL (12.0-16.0) L Hematocrit 25.6 % (37.0-47.0) L Mean Corpuscular Volume 122 FL (80-99) H Mean Corpuscular Hemoglobin 38.9 PG (27.0-31.0) H Mean Corpuscular Hemoglobin Concent 31.8 G/DL (32.0-36.0) L Red Cell Distribution Width 19.3 % (11.6-14.8) H Platelet Count 215 K/UL (150-450) Mean Platelet Volume 4.8 FL (6.5-10.1) L Neutrophils (%) (Auto) % (45.0-75.0) Lymphocytes (%) (Auto) % (20.0-45.0) Monocytes (%) (Auto) % (1.0-10.0) Eosinophils (%) (Auto) % (0.0-3.0) Basophils (%) (Auto) % (0.0-2.0) Differential Total Cells Counted 100 Neutrophils % (Manual) 46 % (45-75) Lymphocytes % (Manual) 39 % (20-45) Monocytes % (Manual) 11 % (1-10) H Eosinophils % (Manual) 4 % (0-3) H Basophils % (Manual) 0 % (0-2) Band Neutrophils 0 % (0-8) Platelet Estimate Adequate Platelet Morphology Normal Hypochromasia 3+ Anisocytosis 2+ Macrocytosis 3+ Sodium Level 138 mEQ/L (135-145) Potassium Level 3.9 mEQ/L (3.4-4.9) Chloride Level 101 mEQ/L (98-107) Carbon Dioxide Level 25 mEQ/L (20-30) Anion Gap 12 (5-15) Blood Urea Nitrogen 6 mg/dL (7-23) L Creatinine 0.6 mg/dL (0.5-0.9) Estimat Glomerular Filtration Rate > 60 mL/min (>60) Glucose Level 81 mg/dL (74-106) Calcium Level 7.7 mg/dL (8.6-10.2) L Lipase 207 U/L (< 60) H Random Vancomycin Level 10.3 ug/mL Neurologic Exam Objective PHYSICAL EXAMINATION: GENERAL: She is a well-developed, well-nourished, obese, Black lady, lying in bed, no acute distress. HEAD: Normocephalic and atraumatic. EENT: Examination benign. NECK: No neck rigidity was observed. NEUROLOGICAL EXAMINATION: MENTAL STATUS EXAMINATION: She was alert and awake. She was oriented to person, place, and time. She was able to recall 3/3 words immediately after 1 minute and after 3 minutes on the second trial. She was able to remember presidents [employer] through [employer]. Her mathematical skills were impaired His visuospatial function was impaired. SPEECH: She had no dysarthria. LANGUAGE: She had no aphasia. CRANIAL NERVE EXAMINATION: II: The visual vargas were intact to confrontation testing. III, IV & : The external ocular movements were full and the pupils 3 mm in diameter, equal, round, regular and reactive to light. V: She had normal facial sensations in the temporales, masseters, and pterygoids functioned normally. VII: She had normal facial expression and no facial asymmetry. VIII: She able to hear well bilaterally and had no nystagmus. IX: The palate moved symmetrically on phonation. X: She had no hoarseness of voice. XI: The sternocleidomastoids and trapezii functioned normally. XII: The tongue was in the midline without any fasciculations or atrophy. MOTOR SYSTEM: The tone was normal in all four extremities. Examination of muscle mass revealed no focal wasting. Examination of power revealed G 5/5 power in both upper extremities. In the lower extremities he had: G 4-/5 in the iliopsoas. G 5/5 in the quadriceps. G 4+/5 in the hamstrings. G 4+/5 in the ankle dorsiflexors, and toe extensors. G 5-/5 in the ankle plantar flexors and toe flexors. SENSORY EXAMINATION: She had altered sensations to pinprick and light touch below T6. REFLEXES: 1+ and bilaterally symmetrical at the biceps, triceps, brachioradialis and knees. 0 at both ankles. The plantar responses were flexor bilaterally. STANCE & GAIT: Could not be tested. Impression/Recommendations Diagnostic Impression 1. Ms Alyssa Trevino is a 40 year old, right handed, Black lady who was admitted for feeling ill, unable to eat, numbness and weakness in the lower extremities. 2. She continues to feel better. Her legs are stronger. However the numbness in the legs is about the same. 3. On neurologic examination, at this time, she exhibits cognitive dysfunction. She also has a paraparesis. In addition she has a T6 sensory level. Her reflexes are globally diminished but not lost. 4. At this point in time is is unclear as to what exactly is causing her lower extremity weakness and numbness starting at the T6 level. 5. Structural cord pathology has been excluded. Recommendations 1. Continue present management. 2. Mobilize with PT/OT. 3. Observe. Ana Ball M.D., M.S.P.ANA ESCALANTE Jun 16, 2016 22:17
[2016-06-17] VITALS: BP 125/78
[2016-06-17] MEDS: DiphenhydrAMINE 50mg/ml Inj IVP PRN ×4 (00:24→19:57)
[2016-06-17] MEDS: Morphine Sulfate 2mg/ml Inj IVP PRN ×6 (00:25→21:33)
[2016-06-17 04:00] VITALS: BP 123/74
[2016-06-17] MEDS: Vancomycin 1 GM in D5W 275 ML IVPB SCH ×2 (04:28→17:19)
[2016-06-17] MEDS: chlordiazePOXIDE 25mg Cap ORAL PRN ×3 (04:36→17:28)
--- NOTE | 2016-06-17 06:08 | General Progress Note ---
Assessment/Plan Problem List: (1) Abdominal pain ICD Codes: R10.9 - Unspecified abdominal pain SNOMED: 20720700 (2) Pancytopenia ICD Codes: D61.818 - Other pancytopenia SNOMED: 181693906 (3) Weak ICD Codes: R53.1 - Weakness SNOMED: 83253177 (4) UTI (urinary tract infection) ICD Codes: N39.0 - Urinary tract infection, site not specified SNOMED: 47623847 (5) Acidosis ICD Codes: E87.2 - Acidosis SNOMED: 78752493 Status: stable, progressing, tolerating diet Assessment/Plan ot pt diet abx hem eval cbc bmp ltach vs hh Subjective Constitutional: Reports: weakness Allergies: Coded Allergies: IBUPROFEN (Verified Allergy, Severe, Anaphylaxis, 06/12/16) swollen face and lips NSAIDS (NON-STEROIDAL ANTI-INFLAMMA (Verified Allergy, Severe, Anaphylaxis , 06/12/16) swollen face and lips Uncoded Allergies: NSAIDS include Ibuprofen (Adverse Reaction, Severe, Anaphylaxis, 06/11/16) Swollen face and lip All Systems: reviewed and negative except above Subjective calm in bed Objective Last 24 Hour Vital Signs Date Time Temp Pulse Resp B/P Pulse Ox O2 Delivery O2 Flow Rate FiO2 06/17/16 04:00 97.3 85 18 123/74 99 Room Air 06/17/16 00:00 97.7 89 18 125/78 96 Room Air 06/16/16 20:22 97.3 06/16/16 20:00 98.1 88 18 115/61 98 Room Air 06/16/16 19:24 98 20 Room Air 06/16/16 16:10 97.3 92 18 101/65 100 Room Air 06/16/16 13:29 97.6 06/16/16 11:42 97.6 91 18 94/62 100 Room Air 06/16/16 09:36 103 105 124 06/16/16 08:09 97.6 103 20 96/50 98 Room Air 06/16/16 07:45 95 20 Room Air 21 Intake and Output 06/16/16 06/17/16 19:00 07:00 Intake Total 1575 ml 450 ml Output Total 600 ml Balance 975 ml 450 ml Intake Oral 1200 ml 240 ml IV Total 375 ml 210 ml Output Urine Total 600 ml # Voids 3 6 # Bowel Movements 1 2 Laboratory Tests 06/16/16 14:50: Random Vancomycin Level 10.3 Height (Feet): 5 Height (Inches): 8.00 Weight (Pounds): 145 General Appearance: lethargic EENT: normal ENT inspection Neck: normal alignment Cardiovascular: normal peripheral pulses, normal rate, regular rhythm Respiratory/Chest: chest wall non-tender, lungs clear, normal breath sounds Abdomen: normal bowel sounds, non tender, soft Extremities: normal inspection Edema: no edema noted Arm (L), no edema noted Arm (R), no edema noted Leg (L), no edema noted Leg (R), no edema noted Pedal (L), no edema noted Pedal (R), no edema noted Generalized Neurologic: responsive, motor weakness Skin: normal pigmentation, warm/dry PIETER GAUTHIER Jun 17, 2016 06:08
[2016-06-17] MEDS: metroNIDAZOLE 500mg 100 ML IVPB SCH ×3 (06:45→21:31)
[2016-06-17 08:34] VITALS: BP 114/71
--- NOTE | 2016-06-17 09:09 | General Progress Note ---
Assessment/Plan Assessment/Plan (1) Intractable pain (2) Hydradenitis (4) Lumbar DDD (5) Lumbar Spondylosis (6) Morbid obesity S/p gastric sleeve surgery (7) Abdominal pain The patient will be continued on tramadol, morphine, [place] and Neurontin. The patient was discussed with Dr. Art and Dr. Art concurred. Subjective Date patient seen: Jun 17, 2016 Time patient seen: 09:15 - am Allergies: Coded Allergies: IBUPROFEN (Verified Allergy, Severe, Anaphylaxis, 06/12/16) swollen face and lips NSAIDS (NON-STEROIDAL ANTI-INFLAMMA (Verified Allergy, Severe, Anaphylaxis , 06/12/16) swollen face and lips Uncoded Allergies: NSAIDS include Ibuprofen (Adverse Reaction, Severe, Anaphylaxis, 06/11/16) Swollen face and lip Subjective REVIEW OF SYSTEMS: Denies rash, fever, chills, sweating, dizziness, drowsiness, blurred vision, sore throat, or change in her weight. No shortness of breath or chest pain. No nausea or vomiting at this time. No bowel or bladder incontinence. No dysuria. She is complaining of abdominal pain, back pain, right armpit pain, and lower extremity pain. SUBJECTIVE: Pt is in bed in no acute distress nurse at bedside. Pain is a 10/10 reduced to a 5/10 on the medications. Objective Last 24 Hour Vital Signs Date Time Temp Pulse Resp B/P Pulse Ox O2 Delivery O2 Flow Rate FiO2 06/17/16 08:34 97.7 90 15 114/71 97 Room Air 06/17/16 04:00 97.3 85 18 123/74 99 Room Air 06/17/16 00:00 97.7 89 18 125/78 96 Room Air 06/16/16 20:22 97.3 06/16/16 20:00 98.1 88 18 115/61 98 Room Air 06/16/16 19:24 98 20 Room Air 06/16/16 16:10 97.3 92 18 101/65 100 Room Air 06/16/16 13:29 97.6 06/16/16 11:42 97.6 91 18 94/62 100 Room Air 06/16/16 09:36 103 105 124 Intake and Output 06/16/16 06/17/16 19:00 07:00 Intake Total 1575 ml 725 ml Output Total 600 ml Balance 975 ml 725 ml Intake Oral 1200 ml 240 ml IV Total 375 ml 485 ml Output Urine Total 600 ml # Voids 3 6 # Bowel Movements 1 2 Laboratory Tests 06/16/16 14:50: Random Vancomycin Level 10.3 Height (Feet): 5 Height (Inches): 8.00 Weight (Pounds): 145 Objective PHYSICAL EXAMINATION: GENERAL: Alert, awake, and oriented x3. HEENT: PERRLA. NECK: Range of motion is full in all directions. No tenderness. No adenopathy. LUNGS: Clear. HEART: Regular. ABDOMEN: Tenderness to palpation. BACK: Range of motion is decreased in flexion and extension with tenderness to paraspinal muscles and trapezial muscles. EXTREMITIES: Motor is intact. No cyanosis. No clubbing. NEURO: No changes. Procedure: MRI C Spine w/wo Contrast Findings: Comparison: None Spinal cord demonstrates normal configuration and signal characteristics. No intradural or extradural mass, fluid collection, other signal abnormality or abnormal enhancement. Spinal canal, lateral recesses and neural foramina normal caliber throughout. Cervical vertebrae are normal in configuration and marrow signal characteristics, normally aligned. Intervertebral discs are normal in height, signal, and configuration. No significant annular bulge/protrusion or marginal osteophyte formation. Paraspinous soft tissues are unremarkable. IMPRESSION: Negative MRI of the cervical spine without and with gadolinium Procedure: MRI T Spine w/wo Contrast Motion artifact degrades all images. Spinal cord demonstrates normal configuration and signal characteristics. No intradural or extradural mass, fluid collection, other signal abnormality or abnormal enhancement. Spinal canal, lateral recesses and neural foramina normal caliber throughout. Thoracic vertebrae are normal in configuration and marrow signal characteristics, normally aligned. T7-8 intervertebral disc mildly decreased in height and signal with mild posterior protrusion. T10-11 intervertebral disc mildly decreased in height and signal with anterior annular bulge-osteophyte complex. Remainder of intervertebral discs are normal in height, signal, and configuration. Paraspinous soft tissues are unremarkable. IMPRESSION: Multilevel mild degenerative disc disease. No obvious neural impingement. Otherwise negative MRI of the thoracic without and with gadolinium OMARI LUA PEdward Jun 17, 2016 09:09
[2016-06-17] MEDS: Thiamine 100mg tab ORAL SCH (09:12)
[2016-06-17] MEDS: Heparin 5000 units/ml inj SUBQ SCH ×2 (09:16→21:32)
--- NOTE | 2016-06-17 10:48 | GI Progress Note ---
Assessment/Plan Problems: (1) Alcoholic pancreatitis ICD Codes: K85.20 - Alcohol induced acute pancreatitis without necrosis or infection SNOMED: 482235273 (2) Abdominal pain ICD Codes: R10.9 - Unspecified abdominal pain SNOMED: 48883270 (3) Severe malnutrition ICD Codes: E43 - Unspecified severe protein-calorie malnutrition SNOMED: 83106852 Status: stable Status Narrative Discussed with Dr. Jones. Assessment/Plan ok for DC per GI standpoint APCT reviewed. LP reviewed hep panel negative iron elevation elevated lactic acid resolving acute alcoholic pancreatitis stable H&H elevated lipase >> pain resolving PT evaluation noted regular diet tolerated pain mgmt alcoholic cessation education given Subjective Subjective abdominal pain, same as yesterday Objective Last 24 Hour Vital Signs Date Time Temp Pulse Resp B/P Pulse Ox O2 Delivery O2 Flow Rate FiO2 06/17/16 09:58 90 99 112 06/17/16 09:47 97.7 06/17/16 09:20 98 16 Room Air 06/17/16 08:34 97.7 90 15 114/71 97 Room Air 06/17/16 04:00 97.3 85 18 123/74 99 Room Air 06/17/16 00:00 97.7 89 18 125/78 96 Room Air 06/16/16 20:00 98.1 88 18 115/61 98 Room Air 06/16/16 19:24 98 20 Room Air 06/16/16 16:10 97.3 92 18 101/65 100 Room Air 06/16/16 13:29 97.6 06/16/16 11:42 97.6 91 18 94/62 100 Room Air Intake and Output 06/16/16 06/17/16 19:00 07:00 Intake Total 1575 ml 725 ml Output Total 600 ml Balance 975 ml 725 ml Intake Oral 1200 ml 240 ml IV Total 375 ml 485 ml Output Urine Total 600 ml # Voids 3 6 # Bowel Movements 1 2 Laboratory Tests Test 06/16/16 14:50 Random Vancomycin Level 10.3 ug/mL Height (Feet): 5 Height (Inches): 8.00 Weight (Pounds): 145 General Appearance: no apparent distress, alert Cardiovascular: normal rate Respiratory/Chest: normal breath sounds, no respiratory distress Abdominal Exam: normal bowel sounds, non tender, soft Extremities: normal range of motion Nayeli Box N.P. Jun 17, 2016 10:48
[2016-06-17] MEDS: Norco 10mg/325mg tab ORAL PRN ×2 (11:29→19:57)
[2016-06-17 11:57] VITALS: BP 134/89
--- NOTE | 2016-06-17 11:58 | General Progress Note ---
Progress Note Progress Note Pt seen and examined. Asked to see her for R axillary HS. 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 Exam: Large area of induration and scarring with tracts and drainage. Rec: Will need wide excision and reconstruction once discharged from this hospitalization. Will see me in the office to schedule. TOM Carrillo MD Jun 17, 2016 11:57
--- NOTE | 2016-06-17 13:03 | General Progress Note ---
Assessment/Plan Assessment/Plan ASSESSMENT: 1. Anemia secondary to chronic disease - likely related to alcohol use, stable 2. Pancytopenia concerning for alcohol myelosuppression (should improve in next few days) 3. Leukopenia, possibly secondary to sepsis. Is stable. 4. Thrombocytopenia, potentially secondary to etoh myelosuppresion v meds 5. Abdominal pain. 6. Acute alcohol intoxication. 7. Urinary tract infection RECOMMENDATIONS: 1. Monitor counts - slowly better off etoh 2. Transfuse hemoglobin goal> 7 3. Transfuse of platelets goal > 20k 4. Macrocytosis related to etoh use 5. Alcohol cessation therapy, AA 6. Follow up on pain management, Pulm, ID, and Cardiology, neuro recs 7. Reviewed anemia w/u 8. DW Staff Thank you, Stephon Fontenot MD Subjective Constitutional: Reports: no symptoms HEENT: Reports: no symptoms Cardiovascular: Reports: no symptoms Respiratory: Reports: no symptoms Gastrointestinal/Abdominal: Reports: poor appetite Genitourinary: Reports: no symptoms Neurologic/Psychiatric: Reports: no symptoms Endocrine: Reports: no symptoms Hematologic/Lymphatic: Reports: anemia Allergies: Coded Allergies: IBUPROFEN (Verified Allergy, Severe, Anaphylaxis, 06/12/16) swollen face and lips NSAIDS (NON-STEROIDAL ANTI-INFLAMMA (Verified Allergy, Severe, Anaphylaxis , 06/12/16) swollen face and lips Uncoded Allergies: NSAIDS include Ibuprofen (Adverse Reaction, Severe, Anaphylaxis, 06/11/16) Swollen face and lip Subjective stable, no fevers, not bleeding, no complaints, no hematochezia Objective Last 24 Hour Vital Signs Date Time Temp Pulse Resp B/P Pulse Ox O2 Delivery O2 Flow Rate FiO2 06/17/16 12:30 97.3 06/17/16 11:57 97.3 92 15 134/89 100 Room Air 06/17/16 09:58 90 99 112 06/17/16 09:47 97.7 06/17/16 09:20 98 16 Room Air 06/17/16 08:34 97.7 90 15 114/71 97 Room Air 06/17/16 04:00 97.3 85 18 123/74 99 Room Air 06/17/16 00:00 97.7 89 18 125/78 96 Room Air 06/16/16 20:00 98.1 88 18 115/61 98 Room Air 06/16/16 19:24 98 20 Room Air 06/16/16 16:10 97.3 92 18 101/65 100 Room Air Intake and Output 06/16/16 06/17/16 19:00 07:00 Intake Total 1575 ml 725 ml Output Total 600 ml Balance 975 ml 725 ml Intake Oral 1200 ml 240 ml IV Total 375 ml 485 ml Output Urine Total 600 ml # Voids 3 6 # Bowel Movements 1 2 Laboratory Tests 06/16/16 14:50: Random Vancomycin Level 10.3 Height (Feet): 5 Height (Inches): 8.00 Weight (Pounds): 145 General Appearance: no apparent distress EENT: TMs normal Neck: supple Cardiovascular: regular rhythm Respiratory/Chest: no respiratory distress Abdomen: soft Extremities: non-tender Edema: 1+ Leg (L), 1+ Leg (R) Edema: mild edema Neurologic: oriented x 3 Skin: warm/dry Stephon Fontenot Jun 17, 2016 13:03
--- NOTE | 2016-06-17 14:37 | Neurology Progress Note ---
Interim History Interim History Interim History Ms. Trevino feels about the same as yesterday. She is upset that she is being told to leave the hospital. The legs are still weak. She has been able to stand and walk to the commode. The mind is clear. She continues to complain of a generalized body ache. The altered sensation continues from her chest downwards. She denies any new neurologic symptoms. Review of Systems Neuro Review of Systems Benign. Objective Physical Exam Last Vital Signs Date Time Temp Pulse Resp B/P Pulse Ox O2 Delivery O2 Flow Rate FiO2 06/17/16 13:59 97.3 06/17/16 11:57 92 15 134/89 100 Room Air 06/16/16 07:45 21 06/13/16 06:30 2.0 Laboratory Tests Test 06/16/16 14:50 Random Vancomycin Level 10.3 ug/mL Neurologic Exam Objective PHYSICAL EXAMINATION: GENERAL: She is a well-developed, well-nourished, obese, Black lady, lying in bed, no acute distress. HEAD: Normocephalic and atraumatic. EENT: Examination benign. NECK: No neck rigidity was observed. NEUROLOGICAL EXAMINATION: MENTAL STATUS EXAMINATION: She was alert and awake. She was oriented to person, place, and time. She was able to recall 3/3 words immediately after 1 minute and after 3 minutes on the second trial. She was able to remember presidents [employer] through [employer]. Her mathematical skills were impaired His visuospatial function was impaired. SPEECH: She had no dysarthria. LANGUAGE: She had no aphasia. CRANIAL NERVE EXAMINATION: II: The visual vargas were intact to confrontation testing. III, IV & : The external ocular movements were full and the pupils 3 mm in diameter, equal, round, regular and reactive to light. V: She had normal facial sensations in the temporales, masseters, and pterygoids functioned normally. VII: She had normal facial expression and no facial asymmetry. VIII: She able to hear well bilaterally and had no nystagmus. IX: The palate moved symmetrically on phonation. X: She had no hoarseness of voice. XI: The sternocleidomastoids and trapezii functioned normally. XII: The tongue was in the midline without any fasciculations or atrophy. MOTOR SYSTEM: The tone was normal in all four extremities. Examination of muscle mass revealed no focal wasting. Examination of power revealed G 5/5 power in both upper extremities. In the lower extremities she exhibited give-way weakness and had: G 4-/5 in the iliopsoas. G 5/5 in the quadriceps. G 4+/5 in the hamstrings. G 4+/5 in the ankle dorsiflexors, and toe extensors. G 5-/5 in the ankle plantar flexors and toe flexors. SENSORY EXAMINATION: She had altered sensations to pinprick and light touch below T6. REFLEXES: 1+ and bilaterally symmetrical at the biceps, triceps, brachioradialis and knees. 0 at both ankles. The plantar responses were flexor bilaterally. STANCE & GAIT: Could not be tested. Impression/Recommendations Diagnostic Impression 1. Ms Alyssa Trevino is a 40 year old, right handed, Black lady who was admitted for feeling ill, unable to eat, numbness and weakness in the lower extremities. 2. She continues to improve. She however is uoset that she has to leave the hospital. Her legs are still weak and the numbness in the legs is about the same. 3. On neurologic examination, at this time, she exhibits cognitive dysfunction. She also has a paraparesis with significant give way weakness. In addition she has a T6 sensory level. Her reflexes are globally diminished but not lost. 4. At this point in time is is unclear as to what exactly is causing her lower extremity weakness and numbness starting at the T6 level - she may have had a viral syndrome causing the problem. 5. Structural cord pathology has been excluded. Recommendations 1. Continue present management. 2. Mobilize with PT/OT. 3. Rehabilitation. Ana Ball M.D., M.S.P.ANA ESCALANTE Jun 17, 2016 14:37
[2016-06-17 16:00] VITALS: BP 132/87
--- NOTE | 2016-06-17 16:21 | Infectious Diseases Prog Note ---
Assessment/Plan Problems: (1) UTI (urinary tract infection) Assessment & Plan: with culture grew pansensitive E coli, on ceftriaxon to treat for 7 days (2) Ovarian cyst Assessment & Plan: recommend transvaginal US and follow up with [facility] (3) Acute alcohol intoxication Assessment & Plan: needs counsling and rehabilitation, watch out for alcohol withdrawal. 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 Subjective Constitutional: Reports: anorexia, fatigue Gastrointestinal/Abdominal: Reports: bloating Neurologic: Reports: numbness, weakness Skin: Reports: other - hydradenitis Musculoskeletal: Reports: stiffness Allergies: Coded Allergies: IBUPROFEN (Verified Allergy, Severe, Anaphylaxis, 06/12/16) swollen face and lips NSAIDS (NON-STEROIDAL ANTI-INFLAMMA (Verified Allergy, Severe, Anaphylaxis , 06/12/16) swollen face and lips Uncoded Allergies: NSAIDS include Ibuprofen (Adverse Reaction, Severe, Anaphylaxis, 06/11/16) Swollen face and lip All Systems: reviewed and negative except above Objective Vital Signs Last 24 Hour Vital Signs Date Time Temp Pulse Resp B/P Pulse Ox O2 Delivery O2 Flow Rate FiO2 06/17/16 13:59 97.3 06/17/16 12:30 97.3 06/17/16 11:57 97.3 92 15 134/89 100 Room Air 06/17/16 09:58 90 99 112 06/17/16 09:20 98 16 Room Air 06/17/16 08:34 97.7 90 15 114/71 97 Room Air 06/17/16 04:00 97.3 85 18 123/74 99 Room Air 06/17/16 00:00 97.7 89 18 125/78 96 Room Air 06/16/16 20:00 98.1 88 18 115/61 98 Room Air 06/16/16 19:24 98 20 Room Air Height (Feet): 5 Height (Inches): 8.00 Weight (Pounds): 145 General Appearance: WD/WN, no acute distress HEENT: normocephalic, atraumatic, mucous membranes moist Respiratory/Chest: chest wall non-tender, lungs clear, no respiratory distress , no accessory muscle use Cardiovascular: normal peripheral pulses, normal rate, regular rhythm Abdomen: normal bowel sounds, soft, non tender, no organomegaly, non distended , no mass Extremities: no cyanosis Skin: no rash, ulcers - right hydradenitis Current Medications Medications (Trade) Dose Ordered Sig/Payam Route PRN Reason Start Time Stop Time Status Last Admin Dose Admin Acetaminophen (Tylenol) 650 mg Q4H PRN ORAL T>100.5 06/14/16 15:30 07/14/16 15:29 Acetaminophen/ Hydrocodone Bitart ([place] 10/325) 1 ea Q4H PRN ORAL moderate pain 06/14/16 14:45 06/21/16 14:44 06/17/16 11:29 Albuterol/ Ipratropium (DuoNeb 0.5-3(2.5)mg/3ml) 3 ml Q4H PRN HHN Shortness of Breath 06/14/16 15:30 06/19/16 15:29 Ceftriaxone Sodium/Dextrose (Rocephin/D5W) 110 ml @ 220 mls/hr Q24H IVPB 06/14/16 23:00 06/21/16 22:59 06/16/16 22:16 Chlordiazepoxide (Librium) 25 mg Q6H PRN ORAL anxiety, tachycardia 06/14/16 15:45 06/21/16 15:44 06/17/16 11:29 Clotrimazole (Lotrimin) 1 applic EVERY 12 HOURS TOPIC 06/15/16 09:00 07/15/16 08:59 06/17/16 09:12 Cyclobenzaprine HCl (Flexeril) 10 mg BEDTIME ORAL 06/14/16 21:00 07/14/16 20:59 06/14/16 20:59 Diphenhydramine HCl (Benadryl) 25 mg Q6H PRN IVP Itching 06/14/16 15:45 07/14/16 15:44 06/17/16 13:29 Folic Acid (Folate) 1 mg DAILY ORAL 06/16/16 09:00 07/16/16 08:59 06/17/16 09:12 Gabapentin (Neurontin) 300 mg THREE TIMES A DAY ORAL 06/14/16 18:00 07/14/16 17:59 06/17/16 13:28 Heparin Sodium (Porcine) (Heparin 5000 units/ml) 5,000 units EVERY 12 HOURS SUBQ 06/14/16 21:00 07/14/16 20:59 06/17/16 09:16 Metronidazole 100 ml @ 100 mls/hr Q8H IVPB 06/14/16 22:00 06/21/16 21:59 06/17/16 13:28 Morphine Sulfate (Morphine Sulfate) 2 mg Q4H PRN IVP PAIN 7-10 06/14/16 15:30 06/21/16 15:29 06/17/16 13:29 Multivitamins (Multivitamins) 1 tab DAILY ORAL 06/16/16 09:00 07/16/16 08:59 06/17/16 09:12 Nitroglycerin (Ntg) 0.4 mg Q5MIN X 3 DOSES PRN SL Prn Chest Pain 06/14/16 14:45 07/14/16 14:44 Ondansetron HCl (Zofran) 4 mg Q6H PRN IVP Nausea & Vomiting 06/14/16 15:30 07/14/16 15:29 06/17/16 13:29 Polyethylene Glycol (Miralax) 17 gm DAILYPRN PRN ORAL Constipation 06/15/16 15:30 07/15/16 15:29 Temazepam (Restoril) 15 mg HSPRN PRN ORAL Insomnia 06/14/16 15:30 06/21/16 15:29 06/16/16 19:38 Thiamine HCl (Vitamin B1) 100 mg DAILY ORAL 06/16/16 09:00 07/16/16 08:59 06/17/16 09:12 Tramadol HCl 50 mg 50 mg Q6H PRN ORAL Mild Pain (Pain Scale 1-3) 06/14/16 15:15 06/21/16 15:14 Vancomycin HCl (Vanco rx to dose) 1 ea DAILY PRN MISC . 06/15/16 09:00 07/15/16 08:59 Vancomycin HCl/ Dextrose (Vancomycin/D5W) 275 ml @ 183.708 mls/hr Q12HR@0400,1600 IVPB 06/14/16 16:00 06/19/16 15:59 06/17/16 04:28 Brandan Rubin M.D. Jun 17, 2016 16:21
--- NOTE | 2016-06-17 16:26 | Pulmonology Progress Note ---
Assessment/Plan Assessment/Plan ASSESSMENT Sepsis Abdominal pain macrocytic anemia anemia pf chronic disease ( due to alcohol abuse) pancytopenia (concerning for alcohol myelosuppression ) Acute alcohol intoxication UTI (urinary tract infection)/E coli mild pulmonary HTN fatty liver disease R axillary HS PLAN OF CARE IVF diet as tolerated continue antibiotics, ID follows, urx + E coli HH at baseline, transfuse prn heme follwos anemia of chronci disease ( alcohol abuse), and macrocytic on folate, thiamine, MVI, initially low folate level, repeated-stable pancytopenia with concern for alcohol myelosuppression monitor counts urine tox screen negative alcohol level -31; Librium prn assistant counsel on abstinence from ETOH, refer to AA monitor LFT, noted elevated GGT abdomen US and CT A/P noted, + fatty liver disease management of fatty liver disease as outpatient with GI ECHO with preserved EF and evidence of mild pulmonary HTN O2 HHN prn CXR with midlung atelectasis, no other acute cardiopulmonary pathology plastic surgeon riccardo noted, will need surgery, fup with plastic surgeon as outpatient case discussed and evaluated by supervising physician Subjective Allergies: Coded Allergies: IBUPROFEN (Verified Allergy, Severe, Anaphylaxis, 06/12/16) swollen face and lips NSAIDS (NON-STEROIDAL ANTI-INFLAMMA (Verified Allergy, Severe, Anaphylaxis , 06/12/16) swollen face and lips Uncoded Allergies: NSAIDS include Ibuprofen (Adverse Reaction, Severe, Anaphylaxis, 06/11/16) Swollen face and lip Subjective no leukocytosis, afebrile HH at baseline on RA sat stable, no signs of respiratory distress, no SOB, no cough Objective Last 24 Hour Vital Signs Date Time Temp Pulse Resp B/P Pulse Ox O2 Delivery O2 Flow Rate FiO2 06/17/16 13:59 97.3 06/17/16 12:30 97.3 06/17/16 11:57 97.3 92 15 134/89 100 Room Air 06/17/16 09:58 90 99 112 06/17/16 09:20 98 16 Room Air 06/17/16 08:34 97.7 90 15 114/71 97 Room Air 06/17/16 04:00 97.3 85 18 123/74 99 Room Air 06/17/16 00:00 97.7 89 18 125/78 96 Room Air 06/16/16 20:00 98.1 88 18 115/61 98 Room Air 06/16/16 19:24 98 20 Room Air Intake and Output 06/16/16 06/17/16 19:00 07:00 Intake Total 1575 ml 725 ml Output Total 600 ml Balance 975 ml 725 ml Intake Oral 1200 ml 240 ml IV Total 375 ml 485 ml Output Urine Total 600 ml # Voids 3 6 # Bowel Movements 1 2 HEENT: normocephalic, atraumatic, anicteric, mucous membranes moist Respiratory/Chest: lungs clear - with moderate air entry , no respiratory distress, no accessory muscle use Cardiovascular: normal peripheral pulses, normal rate, regular rhythm, no JVD Abdomen: normal bowel sounds, soft, non tender Genitourinary: normal external genitalia Extremities: no edema, pedal pulses normal Neurologic/Psychiatric: alert, responsive Musculoskeletal: normal muscle bulk Current Medications Medications (Trade) Dose Ordered Sig/Payam Route PRN Reason Start Time Stop Time Status Last Admin Dose Admin Acetaminophen (Tylenol) 650 mg Q4H PRN ORAL T>100.5 06/14/16 15:30 07/14/16 15:29 Acetaminophen/ Hydrocodone Bitart ([place] 10/325) 1 ea Q4H PRN ORAL moderate pain 06/14/16 14:45 06/21/16 14:44 06/17/16 11:29 Albuterol/ Ipratropium (DuoNeb 0.5-3(2.5)mg/3ml) 3 ml Q4H PRN HHN Shortness of Breath 06/14/16 15:30 06/19/16 15:29 Ceftriaxone Sodium/Dextrose (Rocephin/D5W) 110 ml @ 220 mls/hr Q24H IVPB 06/14/16 23:00 06/21/16 22:59 06/16/16 22:16 Chlordiazepoxide (Librium) 25 mg Q6H PRN ORAL anxiety, tachycardia 06/14/16 15:45 06/21/16 15:44 06/17/16 11:29 Clotrimazole (Lotrimin) 1 applic EVERY 12 HOURS TOPIC 06/15/16 09:00 07/15/16 08:59 06/17/16 09:12 Cyclobenzaprine HCl (Flexeril) 10 mg BEDTIME ORAL 06/14/16 21:00 07/14/16 20:59 06/14/16 20:59 Diphenhydramine HCl (Benadryl) 25 mg Q6H PRN IVP Itching 06/14/16 15:45 07/14/16 15:44 06/17/16 13:29 Folic Acid (Folate) 1 mg DAILY ORAL 06/16/16 09:00 07/16/16 08:59 06/17/16 09:12 Gabapentin (Neurontin) 300 mg THREE TIMES A DAY ORAL 06/14/16 18:00 07/14/16 17:59 06/17/16 13:28 Heparin Sodium (Porcine) (Heparin 5000 units/ml) 5,000 units EVERY 12 HOURS SUBQ 06/14/16 21:00 07/14/16 20:59 06/17/16 09:16 Metronidazole 100 ml @ 100 mls/hr Q8H IVPB 06/14/16 22:00 06/21/16 21:59 06/17/16 13:28 Morphine Sulfate (Morphine Sulfate) 2 mg Q4H PRN IVP PAIN 7-10 06/14/16 15:30 06/21/16 15:29 06/17/16 13:29 Multivitamins (Multivitamins) 1 tab DAILY ORAL 06/16/16 09:00 07/16/16 08:59 06/17/16 09:12 Nitroglycerin (Ntg) 0.4 mg Q5MIN X 3 DOSES PRN SL Prn Chest Pain 06/14/16 14:45 07/14/16 14:44 Ondansetron HCl (Zofran) 4 mg Q6H PRN IVP Nausea & Vomiting 06/14/16 15:30 07/14/16 15:29 06/17/16 13:29 Polyethylene Glycol (Miralax) 17 gm DAILYPRN PRN ORAL Constipation 06/15/16 15:30 07/15/16 15:29 Temazepam (Restoril) 15 mg HSPRN PRN ORAL Insomnia 06/14/16 15:30 06/21/16 15:29 06/16/16 19:38 Thiamine HCl (Vitamin B1) 100 mg DAILY ORAL 06/16/16 09:00 07/16/16 08:59 06/17/16 09:12 Tramadol HCl 50 mg 50 mg Q6H PRN ORAL Mild Pain (Pain Scale 1-3) 06/14/16 15:15 06/21/16 15:14 Vancomycin HCl (Vanco rx to dose) 1 ea DAILY PRN MISC . 06/15/16 09:00 07/15/16 08:59 Vancomycin HCl/ Dextrose (Vancomycin/D5W) 275 ml @ 183.708 mls/hr Q12HR@0400,1600 IVPB 06/14/16 16:00 06/19/16 15:59 06/17/16 04:28 Jose (Marycarmen)Juhi NP Jun 17, 2016 16:26
[2016-06-17 20:00] VITALS: BP 130/81
[2016-06-17] MEDS: Cyclobenzaprine 10mg Tab ORAL SCH (21:30)
--- NOTE | 2016-06-17 21:50 | Diagnostic Imaging Report ---
APPROVED REPORT CPT Code: 71680 Present Symptoms Lower Extremity Pain: Bilateral BILATERAL: Imaging reveals a patent deep venous system bilaterally. There is no evidence of thrombus within the femoral, popliteal or tibial segments. The greater saphenous veins are also within normal limits. Doppler indicates normal spontaneous flow within these segments.
[2016-06-17] MEDS: cefTRIAXone 2 GM in D5W 110 ML IVPB SCH (22:41)
[2016-06-18] VITALS: BP 100/57
[2016-06-18] MEDS: Norco 10mg/325mg tab ORAL PRN ×2 (00:40→08:24)
[2016-06-18] MEDS: Morphine Sulfate 2mg/ml Inj IVP PRN ×5 (01:39→22:39)
[2016-06-18] MEDS: chlordiazePOXIDE 25mg Cap ORAL PRN ×3 (01:46→21:03)
[2016-06-18] MEDS: DiphenhydrAMINE 50mg/ml Inj IVP PRN ×3 (03:41→22:40)
[2016-06-18 04:00] VITALS: BP 106/61
[2016-06-18] MEDS: Vancomycin 1 GM in D5W 275 ML IVPB SCH ×2 (04:40→16:10)
[2016-06-18] MEDS: metroNIDAZOLE 500mg 100 ML IVPB SCH ×3 (06:39→22:41)
[2016-06-18 07:40] LABS: ANION GAP 12 (5-15); CALCIUM 7.9 mg/dL (8.6-10.2); CARBON DIOXIDE 26 mEQ/L (20-30); CHLORIDE 102 mEQ/L (98-107); CREATININE 0.6 mg/dL (0.5-0.9); GLOMERULAR FILTRATION RATE > 60 mL/min (>60); HEMOLYSIS 2; POTASSIUM 3.5 mEQ/L (3.4-4.9); SODIUM 140 mEQ/L (135-145)
[2016-06-18 07:43] LABS: MEAN CORPUSCULAR HEMOGLOBIN 36.7 PG (27.0-31.0); MEAN CORPUSCULAR VOLUME 119 FL (80-99); MEAN PLATELET VOLUME 4.7 FL (6.5-10.1); PLATELET COUNT 410 K/UL (150-450); RED BLOOD COUNT 2.35 M/UL (4.20-5.40); RED CELL DISTRIBUTION WIDTH 19.8 % (11.6-14.8); WHITE BLOOD COUNT 4.7 K/UL (4.8-10.8)
[2016-06-18 07:47] VITALS: BP 115/75
[2016-06-18] MEDS: Thiamine 100mg tab ORAL SCH (08:24)
[2016-06-18] MEDS: Heparin 5000 units/ml inj SUBQ SCH ×2 (08:26→21:05)
[2016-06-18 10:01] LABS: ANISOCYTOSIS 2+; BAND NEUTROPHILS % (MANUAL) 0 % (0-8); BASOPHILS % (MANUAL) 2 % (0-2); EOSINOPHILS % (MANUAL) 9 % (0-3); HYPOCHROMASIA 2+; LYMPHOCYTES % (MANUAL) 45 % (20-45); NEUTROPHILS % (MANUAL) 37 % (45-75); PLATELET ESTIMATE ADEQUATE; TOTAL CELLS COUNTED 100
[2016-06-18 10:02] LABS: MACROCYTES 2+; PLATELET MORPHOLOGY NORMAL
--- NOTE | 2016-06-18 10:37 | General Progress Note ---
Assessment/Plan Problem List: (1) Alcoholic pancreatitis ICD Codes: K85.20 - Alcohol induced acute pancreatitis without necrosis or infection SNOMED: 385454980 Assessment/Plan tolerating diet no abd pain repeat amylase and lipase Subjective ROS Limited/Unobtainable: Yes Allergies: Coded Allergies: IBUPROFEN (Verified Allergy, Severe, Anaphylaxis, 06/12/16) swollen face and lips NSAIDS (NON-STEROIDAL ANTI-INFLAMMA (Verified Allergy, Severe, Anaphylaxis , 06/12/16) swollen face and lips Uncoded Allergies: NSAIDS include Ibuprofen (Adverse Reaction, Severe, Anaphylaxis, 06/11/16) Swollen face and lip Subjective had BM no abd pain Objective Last 24 Hour Vital Signs Date Time Temp Pulse Resp B/P Pulse Ox O2 Delivery O2 Flow Rate FiO2 06/18/16 09:00 92 95 95 06/18/16 07:47 97.5 75 16 115/75 100 Room Air 06/18/16 04:00 97.0 89 18 106/61 97 Room Air 06/18/16 00:00 97.7 86 18 100/57 98 Room Air 06/17/16 20:00 96.9 82 17 130/81 98 Room Air 06/17/16 19:22 92 18 Room Air 06/17/16 16:00 96.1 86 18 132/87 98 Room Air 06/17/16 13:59 97.3 06/17/16 12:30 97.3 06/17/16 11:57 97.3 92 15 134/89 100 Room Air Intake and Output 06/17/16 06/18/16 19:00 07:00 Intake Total 475.000 ml Balance 475.000 ml IV Total 475.000 ml # Bowel Movements 2 2 Laboratory Tests 06/18/16 05:55: White Blood Count 4.7L, Red Blood Count 2.35L, Hemoglobin 8.6L, Hematocrit 27.9L , Mean Corpuscular Volume 119H, Mean Corpuscular Hemoglobin 36.7H, Mean Corpuscular Hemoglobin Concent 31.0L, Red Cell Distribution Width 19.8H, Platelet Count 410, Mean Platelet Volume 4.7L, Neutrophils (%) (Auto) , Lymphocytes (%) (Auto) , Monocytes (%) (Auto) , Eosinophils (%) (Auto) , Basophils (%) (Auto) , Differential Total Cells Counted 100, Neutrophils % ( Manual) 37L, Lymphocytes % (Manual) 45, Monocytes % (Manual) 7, Eosinophils % ( Manual) 9H, Basophils % (Manual) 2, Band Neutrophils 0, Platelet Estimate Adequate, Platelet Morphology Normal, Hypochromasia 2+, Anisocytosis 2+, Macrocytosis 2+, Sodium Level 140, Potassium Level 3.5, Chloride Level 102, Carbon Dioxide Level 26, Anion Gap 12, Blood Urea Nitrogen 6L, Creatinine 0.6, Estimat Glomerular Filtration Rate > 60, Glucose Level 78, Calcium Level 7.9L Height (Feet): 5 Height (Inches): 8.00 Weight (Pounds): 145 General Appearance: alert EENT: normal ENT inspection Neck: supple Cardiovascular: normal rate Respiratory/Chest: lungs clear Abdomen: normal bowel sounds, non tender, soft Extremities: non-tender VIDAL ROBERTS Jun 18, 2016 10:37
[2016-06-18 11:58] VITALS: BP 115/86
--- NOTE | 2016-06-18 12:25 | General Progress Note ---
Assessment/Plan Status: stable Assessment/Plan - Dehydration, Hypokalemia - Sepsis - Abdominal pain , abnormal LFTs - Severe anemia - Acute alcohol intoxication, fatty infilt liver - UTI (urinary tract infection) - Ascending paraparesis,r/o spinal cotd compression r/o GBS Plan: K supplements- as needed Per consultants- monitor renal parameters and electrolytes- not much to add from renal stand point ? DC planning? Subjective ROS Limited/Unobtainable: No Constitutional: Reports: malaise Allergies: Coded Allergies: IBUPROFEN (Verified Allergy, Severe, Anaphylaxis, 06/12/16) swollen face and lips NSAIDS (NON-STEROIDAL ANTI-INFLAMMA (Verified Allergy, Severe, Anaphylaxis , 06/12/16) swollen face and lips Uncoded Allergies: NSAIDS include Ibuprofen (Adverse Reaction, Severe, Anaphylaxis, 06/11/16) Swollen face and lip Objective Last 24 Hour Vital Signs Date Time Temp Pulse Resp B/P Pulse Ox O2 Delivery O2 Flow Rate FiO2 06/18/16 11:58 97.0 96 18 115/86 100 Room Air 06/18/16 09:00 92 95 95 06/18/16 07:47 97.5 75 16 115/75 100 Room Air 06/18/16 07:10 77 18 Room Air 06/18/16 04:00 97.0 89 18 106/61 97 Room Air 06/18/16 00:00 97.7 86 18 100/57 98 Room Air 06/17/16 20:00 96.9 82 17 130/81 98 Room Air 06/17/16 19:22 92 18 Room Air 06/17/16 16:00 96.1 86 18 132/87 98 Room Air 06/17/16 13:59 97.3 06/17/16 12:30 97.3 Intake and Output 06/17/16 06/18/16 19:00 07:00 Intake Total 475.000 ml Balance 475.000 ml IV Total 475.000 ml # Bowel Movements 2 2 Laboratory Tests 06/18/16 05:55: White Blood Count 4.7L, Red Blood Count 2.35L, Hemoglobin 8.6L, Hematocrit 27.9L , Mean Corpuscular Volume 119H, Mean Corpuscular Hemoglobin 36.7H, Mean Corpuscular Hemoglobin Concent 31.0L, Red Cell Distribution Width 19.8H, Platelet Count 410, Mean Platelet Volume 4.7L, Neutrophils (%) (Auto) , Lymphocytes (%) (Auto) , Monocytes (%) (Auto) , Eosinophils (%) (Auto) , Basophils (%) (Auto) , Differential Total Cells Counted 100, Neutrophils % ( Manual) 37L, Lymphocytes % (Manual) 45, Monocytes % (Manual) 7, Eosinophils % ( Manual) 9H, Basophils % (Manual) 2, Band Neutrophils 0, Platelet Estimate Adequate, Platelet Morphology Normal, Hypochromasia 2+, Anisocytosis 2+, Macrocytosis 2+, Sodium Level 140, Potassium Level 3.5, Chloride Level 102, Carbon Dioxide Level 26, Anion Gap 12, Blood Urea Nitrogen 6L, Creatinine 0.6, Estimat Glomerular Filtration Rate > 60, Glucose Level 78, Calcium Level 7.9L Height (Feet): 5 Height (Inches): 8.00 Weight (Pounds): 145 General Appearance: no apparent distress Objective other PE not changed ROSA COYLE Jun 18, 2016 12:24
--- NOTE | 2016-06-18 13:35 | Pulmonology Progress Note ---
Assessment/Plan Assessment/Plan ASSESSMENT Sepsis Abdominal pain macrocytic anemia anemia pf chronic disease ( due to alcohol abuse) pancytopenia (concerning for alcohol myelosuppression ) Acute alcohol intoxication UTI (urinary tract infection)/E coli mild pulmonary HTN fatty liver disease R axillary HS PLAN OF CARE off IVF diet as tolerated continue antibiotics, ID follows, urine cx + E coli HH at baseline, transfuse prn heme follows anemia of chronic disease ( alcohol abuse), and macrocytic on folate, thiamine, MVI, initially low folate level, repeated-stable pancytopenia with concern for alcohol myelosuppression monitor counts urine tox screen negative alcohol level -31; Librium prn counseling services manager on abstinence from ETOH, refer to AA monitor LFT, noted elevated GGT abdomen US and CT A/P noted, + fatty liver disease management of fatty liver disease as outpatient with GI ECHO with preserved EF and evidence of mild pulmonary HTN O2 HHN prn CXR with midlung atelectasis, no other acute cardiopulmonary pathology plastic surgeon riccardo noted, will need surgery, fup with plastic surgeon as outpatient dc plan as per PMD , stable cardiopulmonary status case discussed and evaluated by supervising physician Subjective Allergies: Coded Allergies: IBUPROFEN (Verified Allergy, Severe, Anaphylaxis, 06/12/16) swollen face and lips NSAIDS (NON-STEROIDAL ANTI-INFLAMMA (Verified Allergy, Severe, Anaphylaxis , 06/12/16) swollen face and lips Uncoded Allergies: NSAIDS include Ibuprofen (Adverse Reaction, Severe, Anaphylaxis, 06/11/16) Swollen face and lip Subjective no leukocytosis, afebrile HH at baseline on RA sat stable, no signs of respiratory distress, no SOB, no cough Objective Last 24 Hour Vital Signs Date Time Temp Pulse Resp B/P Pulse Ox O2 Delivery O2 Flow Rate FiO2 06/18/16 11:58 97.0 96 18 115/86 100 Room Air 06/18/16 09:00 92 95 95 06/18/16 07:47 97.5 75 16 115/75 100 Room Air 06/18/16 07:10 77 18 Room Air 06/18/16 04:00 97.0 89 18 106/61 97 Room Air 06/18/16 00:00 97.7 86 18 100/57 98 Room Air 06/17/16 20:00 96.9 82 17 130/81 98 Room Air 06/17/16 19:22 92 18 Room Air 06/17/16 16:00 96.1 86 18 132/87 98 Room Air 06/17/16 13:59 97.3 Intake and Output 06/17/16 06/18/16 19:00 07:00 Intake Total 475.000 ml Balance 475.000 ml IV Total 475.000 ml # Bowel Movements 2 2 Objective HEENT: normocephalic, atraumatic, anicteric, mucous membranes moist Respiratory/Chest: lungs clear - with moderate air entry , no respiratory distress, no accessory muscle use Cardiovascular: normal peripheral pulses, normal rate, regular rhythm, no JVD Abdomen: normal bowel sounds, soft, non tender Genitourinary: normal external genitalia Extremities: no edema, pedal pulses normal Neurologic/Psychiatric: alert, responsive Musculoskeletal: normal muscle bulk Laboratory Tests 06/18/16 05:55: White Blood Count 4.7L, Red Blood Count 2.35L, Hemoglobin 8.6L, Hematocrit 27.9L , Mean Corpuscular Volume 119H, Mean Corpuscular Hemoglobin 36.7H, Mean Corpuscular Hemoglobin Concent 31.0L, Red Cell Distribution Width 19.8H, Platelet Count 410, Mean Platelet Volume 4.7L, Neutrophils (%) (Auto) , Lymphocytes (%) (Auto) , Monocytes (%) (Auto) , Eosinophils (%) (Auto) , Basophils (%) (Auto) , Differential Total Cells Counted 100, Neutrophils % ( Manual) 37L, Lymphocytes % (Manual) 45, Monocytes % (Manual) 7, Eosinophils % ( Manual) 9H, Basophils % (Manual) 2, Band Neutrophils 0, Platelet Estimate Adequate, Platelet Morphology Normal, Hypochromasia 2+, Anisocytosis 2+, Macrocytosis 2+, Sodium Level 140, Potassium Level 3.5, Chloride Level 102, Carbon Dioxide Level 26, Anion Gap 12, Blood Urea Nitrogen 6L, Creatinine 0.6, Estimat Glomerular Filtration Rate > 60, Glucose Level 78, Calcium Level 7.9L Current Medications Medications (Trade) Dose Ordered Sig/Payam Route PRN Reason Start Time Stop Time Status Last Admin Dose Admin Acetaminophen (Tylenol) 650 mg Q4H PRN ORAL T>100.5 06/14/16 15:30 07/14/16 15:29 Acetaminophen/ Hydrocodone Bitart ([place] 10/325) 1 ea Q4H PRN ORAL moderate pain 06/14/16 14:45 06/21/16 14:44 06/18/16 08:24 Albuterol/ Ipratropium (DuoNeb 0.5-3(2.5)mg/3ml) 3 ml Q4H PRN HHN Shortness of Breath 06/14/16 15:30 06/19/16 15:29 Ceftriaxone Sodium/Dextrose (Rocephin/D5W) 110 ml @ 220 mls/hr Q24H IVPB 06/14/16 23:00 06/21/16 22:59 06/17/16 22:41 Chlordiazepoxide (Librium) 25 mg Q6H PRN ORAL anxiety, tachycardia 06/14/16 15:45 06/21/16 15:44 06/18/16 13:13 Clotrimazole (Lotrimin) 1 applic EVERY 12 HOURS TOPIC 06/15/16 09:00 07/15/16 08:59 06/18/16 09:54 Cyclobenzaprine HCl (Flexeril) 10 mg BEDTIME ORAL 06/14/16 21:00 07/14/16 20:59 06/17/16 21:30 Diphenhydramine HCl (Benadryl) 25 mg Q6H PRN IVP Itching 06/14/16 15:45 07/14/16 15:44 06/18/16 13:13 Folic Acid (Folate) 1 mg DAILY ORAL 06/16/16 09:00 07/16/16 08:59 06/18/16 08:25 Gabapentin (Neurontin) 300 mg THREE TIMES A DAY ORAL 06/14/16 18:00 07/14/16 17:59 06/18/16 13:13 Heparin Sodium (Porcine) (Heparin 5000 units/ml) 5,000 units EVERY 12 HOURS SUBQ 06/14/16 21:00 07/14/16 20:59 06/18/16 08:26 Metronidazole 100 ml @ 100 mls/hr Q8H IVPB 06/14/16 22:00 06/21/16 21:59 06/18/16 06:39 Morphine Sulfate (Morphine Sulfate) 2 mg Q4H PRN IVP PAIN 7-10 06/14/16 15:30 06/21/16 15:29 06/18/16 11:53 Multivitamins (Multivitamins) 1 tab DAILY ORAL 06/16/16 09:00 07/16/16 08:59 06/18/16 08:25 Nitroglycerin (Ntg) 0.4 mg Q5MIN X 3 DOSES PRN SL Prn Chest Pain 06/14/16 14:45 07/14/16 14:44 Ondansetron HCl (Zofran) 4 mg Q6H PRN IVP Nausea & Vomiting 06/14/16 15:30 07/14/16 15:29 06/18/16 11:53 Polyethylene Glycol (Miralax) 17 gm DAILYPRN PRN ORAL Constipation 06/15/16 15:30 07/15/16 15:29 Temazepam (Restoril) 15 mg HSPRN PRN ORAL Insomnia 06/14/16 15:30 06/21/16 15:29 06/17/16 21:30 Thiamine HCl (Vitamin B1) 100 mg DAILY ORAL 06/16/16 09:00 07/16/16 08:59 06/18/16 08:24 Tramadol HCl 50 mg 50 mg Q6H PRN ORAL Mild Pain (Pain Scale 1-3) 06/14/16 15:15 06/21/16 15:14 Vancomycin HCl (Vanco rx to dose) 1 ea DAILY PRN MISC . 06/15/16 09:00 07/15/16 08:59 Vancomycin HCl/ Dextrose (Vancomycin/D5W) 275 ml @ 183.708 mls/hr Q12HR@0400,1600 IVPB 06/14/16 16:00 06/19/16 15:59 06/18/16 04:40 Juhi Garcia NP ([facility]) Jun 18, 2016 13:35
[2016-06-18] MEDS ORDERED: NS 275ml ONE (14:05)
[2016-06-18] MEDS ORDERED: Tubing IV Secondary IV ONE (14:05)
--- NOTE | 2016-06-18 14:11 | General Progress Note ---
Assessment/Plan Problem List: (1) Cellulitis (2) UTI (urinary tract infection) ICD Codes: N39.0 - Urinary tract infection, site not specified SNOMED: 75359559 (3) Severe sepsis ICD Codes: A41.9 - Sepsis, unspecified organism; R65.20 - Severe sepsis without septic shock SNOMED: 68037267 (4) Weak ICD Codes: R53.1 - Weakness SNOMED: 59254400 (5) Abdominal pain ICD Codes: R10.9 - Unspecified abdominal pain SNOMED: 75205681 (6) Anxiety ICD Codes: F41.9 - Anxiety disorder, unspecified SNOMED: 62296512 (7) Sepsis ICD Codes: A41.9 - Sepsis, unspecified organism SNOMED: 47914600 Status: progressing Assessment/Plan afebrile vitals stable cellulitis reviewed chart and labs anemia abx per id Subjective Constitutional: Reports: no symptoms Allergies: Coded Allergies: IBUPROFEN (Verified Allergy, Severe, Anaphylaxis, 06/12/16) swollen face and lips NSAIDS (NON-STEROIDAL ANTI-INFLAMMA (Verified Allergy, Severe, Anaphylaxis , 06/12/16) swollen face and lips Uncoded Allergies: NSAIDS include Ibuprofen (Adverse Reaction, Severe, Anaphylaxis, 06/11/16) Swollen face and lip Objective Last 24 Hour Vital Signs Date Time Temp Pulse Resp B/P Pulse Ox O2 Delivery O2 Flow Rate FiO2 06/18/16 11:58 97.0 96 18 115/86 100 Room Air 06/18/16 09:00 92 95 95 06/18/16 07:47 97.5 75 16 115/75 100 Room Air 06/18/16 07:10 77 18 Room Air 06/18/16 04:00 97.0 89 18 106/61 97 Room Air 06/18/16 00:00 97.7 86 18 100/57 98 Room Air 06/17/16 20:00 96.9 82 17 130/81 98 Room Air 06/17/16 19:22 92 18 Room Air 06/17/16 16:00 96.1 86 18 132/87 98 Room Air Intake and Output 06/17/16 06/18/16 19:00 07:00 Intake Total 475.000 ml Balance 475.000 ml IV Total 475.000 ml # Bowel Movements 2 2 Laboratory Tests 06/18/16 05:55: White Blood Count 4.7L, Red Blood Count 2.35L, Hemoglobin 8.6L, Hematocrit 27.9L , Mean Corpuscular Volume 119H, Mean Corpuscular Hemoglobin 36.7H, Mean Corpuscular Hemoglobin Concent 31.0L, Red Cell Distribution Width 19.8H, Platelet Count 410, Mean Platelet Volume 4.7L, Neutrophils (%) (Auto) , Lymphocytes (%) (Auto) , Monocytes (%) (Auto) , Eosinophils (%) (Auto) , Basophils (%) (Auto) , Differential Total Cells Counted 100, Neutrophils % ( Manual) 37L, Lymphocytes % (Manual) 45, Monocytes % (Manual) 7, Eosinophils % ( Manual) 9H, Basophils % (Manual) 2, Band Neutrophils 0, Platelet Estimate Adequate, Platelet Morphology Normal, Hypochromasia 2+, Anisocytosis 2+, Macrocytosis 2+, Sodium Level 140, Potassium Level 3.5, Chloride Level 102, Carbon Dioxide Level 26, Anion Gap 12, Blood Urea Nitrogen 6L, Creatinine 0.6, Estimat Glomerular Filtration Rate > 60, Glucose Level 78, Calcium Level 7.9L Height (Feet): 5 Height (Inches): 8.00 Weight (Pounds): 145 General Appearance: confused Neck: supple Cardiovascular: normal rate Respiratory/Chest: lungs clear Wiley Carrasco MD Jun 18, 2016 14:11
--- NOTE | 2016-06-18 14:33 | Neurology Progress Note ---
Interim History Interim History Interim History Ms. Trevino feels about the same as yesterday. She says she was unable to sleep last night due to a noisy neighbor. The legs are still weak. She has been able to stand and walk a little. The mind is clear. She continues to complain of a generalized body ache. The altered sensation continues from her chest downwards. She denies any new neurologic symptoms. Review of Systems Neuro Review of Systems Benign. Objective Physical Exam Last Vital Signs Date Time Temp Pulse Resp B/P Pulse Ox O2 Delivery O2 Flow Rate FiO2 06/18/16 11:58 97.0 96 18 115/86 100 Room Air 06/16/16 07:45 21 06/13/16 06:30 2.0 Laboratory Tests Test 06/18/16 05:55 White Blood Count 4.7 K/UL (4.8-10.8) L Red Blood Count 2.35 M/UL (4.20-5.40) L Hemoglobin 8.6 G/DL (12.0-16.0) L Hematocrit 27.9 % (37.0-47.0) L Mean Corpuscular Volume 119 FL (80-99) H Mean Corpuscular Hemoglobin 36.7 PG (27.0-31.0) H Mean Corpuscular Hemoglobin Concent 31.0 G/DL (32.0-36.0) L Red Cell Distribution Width 19.8 % (11.6-14.8) H Platelet Count 410 K/UL (150-450) Mean Platelet Volume 4.7 FL (6.5-10.1) L Neutrophils (%) (Auto) % (45.0-75.0) Lymphocytes (%) (Auto) % (20.0-45.0) Monocytes (%) (Auto) % (1.0-10.0) Eosinophils (%) (Auto) % (0.0-3.0) Basophils (%) (Auto) % (0.0-2.0) Differential Total Cells Counted 100 Neutrophils % (Manual) 37 % (45-75) L Lymphocytes % (Manual) 45 % (20-45) Monocytes % (Manual) 7 % (1-10) Eosinophils % (Manual) 9 % (0-3) H Basophils % (Manual) 2 % (0-2) Band Neutrophils 0 % (0-8) Platelet Estimate Adequate Platelet Morphology Normal Hypochromasia 2+ Anisocytosis 2+ Macrocytosis 2+ Sodium Level 140 mEQ/L (135-145) Potassium Level 3.5 mEQ/L (3.4-4.9) Chloride Level 102 mEQ/L (98-107) Carbon Dioxide Level 26 mEQ/L (20-30) Anion Gap 12 (5-15) Blood Urea Nitrogen 6 mg/dL (7-23) L Creatinine 0.6 mg/dL (0.5-0.9) Estimat Glomerular Filtration Rate > 60 mL/min (>60) Glucose Level 78 mg/dL (74-106) Calcium Level 7.9 mg/dL (8.6-10.2) L Neurologic Exam Objective PHYSICAL EXAMINATION: GENERAL: She is a well-developed, well-nourished, obese, Black lady, lying in bed, no acute distress. HEAD: Normocephalic and atraumatic. EENT: Examination benign. NECK: No neck rigidity was observed. NEUROLOGICAL EXAMINATION: MENTAL STATUS EXAMINATION: She was alert and awake. She was oriented to person, place, and time. She was able to recall 3/3 words immediately after 1 minute and after 3 minutes on the second trial. She was able to remember presidents Tr[place]zena through [employer]. Her mathematical skills were impaired His visuospatial function was impaired. SPEECH: She had no dysarthria. LANGUAGE: She had no aphasia. CRANIAL NERVE EXAMINATION: II: The visual vargas were intact to confrontation testing. III, IV & : The external ocular movements were full and the pupils 3 mm in diameter, equal, round, regular and reactive to light. V: She had normal facial sensations in the temporales, masseters, and pterygoids functioned normally. VII: She had normal facial expression and no facial asymmetry. VIII: She able to hear well bilaterally and had no nystagmus. IX: The palate moved symmetrically on phonation. X: She had no hoarseness of voice. XI: The sternocleidomastoids and trapezii functioned normally. XII: The tongue was in the midline without any fasciculations or atrophy. MOTOR SYSTEM: The tone was normal in all four extremities. Examination of muscle mass revealed no focal wasting. Examination of power revealed G 5/5 power in both upper extremities. In the lower extremities she exhibited give-way weakness and had: G 4-/5 in the iliopsoas. G 5/5 in the quadriceps. G 4+/5 in the hamstrings. G 4+/5 in the ankle dorsiflexors, and toe extensors. G 5-/5 in the ankle plantar flexors and toe flexors. SENSORY EXAMINATION: She had altered sensations to pinprick and light touch below T6. REFLEXES: 1+ and bilaterally symmetrical at the biceps, triceps, brachioradialis and knees. 0 at both ankles. The plantar responses were flexor bilaterally. STANCE & GAIT: Could not be tested. Impression/Recommendations Diagnostic Impression 1. Ms Alyssa Trevino is a 40 year old, right handed, Black lady who was admitted for feeling ill, unable to eat, numbness and weakness in the lower extremities. 2. She continues to improve. She however is upset that she was unable to sleep well last night. Her legs are still weak and the numbness in the legs is about the same. 3. On neurologic examination, at this time, she exhibits cognitive dysfunction. She also has a paraparesis with significant give way weakness. In addition she has a T6 sensory level. Her reflexes are globally diminished but not lost. 4. It is still unclear as to what exactly is causing her lower extremity weakness and numbness starting at the T6 level - she may have had a viral syndrome causing the problem. 5. Structural cord pathology has been excluded. Recommendations 1. Continue present management. 2. Mobilize with PT/OT. 3. Rehabilitation. Ana Ball M.D., M.S.P.Kindra. ANA BALL Jun 18, 2016 14:33
--- NOTE | 2016-06-18 15:18 | Infectious Diseases Prog Note ---
Assessment/Plan Problems: (1) UTI (urinary tract infection) Assessment & Plan: with culture grew pansensitive E coli, on ceftriaxon to treat for 7 days (2) Ovarian cyst Assessment & Plan: recommend transvaginal US and follow up with AUDIT MACHINE OPERATOR (3) Acute alcohol intoxication Assessment & Plan: needs counsling and rehabilitation, watch out for alcohol withdrawal. 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 Subjective Constitutional: Reports: anorexia, fatigue Gastrointestinal/Abdominal: Reports: constipation Neurologic: Reports: numbness, weakness Psychiatric: Reports: depression Skin: Reports: other - right armbit drainage Allergies: Coded Allergies: IBUPROFEN (Verified Allergy, Severe, Anaphylaxis, 06/12/16) swollen face and lips NSAIDS (NON-STEROIDAL ANTI-INFLAMMA (Verified Allergy, Severe, Anaphylaxis , 06/12/16) swollen face and lips Uncoded Allergies: NSAIDS include Ibuprofen (Adverse Reaction, Severe, Anaphylaxis, 06/11/16) Swollen face and lip All Systems: reviewed and negative except above Objective Vital Signs Last 24 Hour Vital Signs Date Time Temp Pulse Resp B/P Pulse Ox O2 Delivery O2 Flow Rate FiO2 06/18/16 11:58 97.0 96 18 115/86 100 Room Air 06/18/16 09:00 92 95 95 06/18/16 07:47 97.5 75 16 115/75 100 Room Air 06/18/16 07:10 77 18 Room Air 06/18/16 04:00 97.0 89 18 106/61 97 Room Air 06/18/16 00:00 97.7 86 18 100/57 98 Room Air 06/17/16 20:00 96.9 82 17 130/81 98 Room Air 06/17/16 19:22 92 18 Room Air 06/17/16 16:00 96.1 86 18 132/87 98 Room Air Height (Feet): 5 Height (Inches): 8.00 Weight (Pounds): 145 General Appearance: WD/WN, no acute distress HEENT: normocephalic, atraumatic, anicteric, mucous membranes moist Respiratory/Chest: chest wall non-tender, lungs clear, normal breath sounds, no respiratory distress, no accessory muscle use Cardiovascular: normal peripheral pulses, normal rate, regular rhythm, no gallop/murmur Abdomen: normal bowel sounds, soft, non tender, no organomegaly, non distended , no mass, no scars Extremities: no cyanosis, no clubbing Skin: no rash, no lesions, ulcers, other - right auxillary hydradenitis Neurologic/Psychiatric: alert, oriented x 3, motor weakness, sensory deficit Laboratory Tests Test 06/18/16 05:55 White Blood Count 4.7 K/UL (4.8-10.8) L Red Blood Count 2.35 M/UL (4.20-5.40) L Hemoglobin 8.6 G/DL (12.0-16.0) L Hematocrit 27.9 % (37.0-47.0) L Mean Corpuscular Volume 119 FL (80-99) H Mean Corpuscular Hemoglobin 36.7 PG (27.0-31.0) H Mean Corpuscular Hemoglobin Concent 31.0 G/DL (32.0-36.0) L Red Cell Distribution Width 19.8 % (11.6-14.8) H Platelet Count 410 K/UL (150-450) Mean Platelet Volume 4.7 FL (6.5-10.1) L Neutrophils (%) (Auto) % (45.0-75.0) Lymphocytes (%) (Auto) % (20.0-45.0) Monocytes (%) (Auto) % (1.0-10.0) Eosinophils (%) (Auto) % (0.0-3.0) Basophils (%) (Auto) % (0.0-2.0) Differential Total Cells Counted 100 Neutrophils % (Manual) 37 % (45-75) L Lymphocytes % (Manual) 45 % (20-45) Monocytes % (Manual) 7 % (1-10) Eosinophils % (Manual) 9 % (0-3) H Basophils % (Manual) 2 % (0-2) Band Neutrophils 0 % (0-8) Platelet Estimate Adequate Platelet Morphology Normal Hypochromasia 2+ Anisocytosis 2+ Macrocytosis 2+ Sodium Level 140 mEQ/L (135-145) Potassium Level 3.5 mEQ/L (3.4-4.9) Chloride Level 102 mEQ/L (98-107) Carbon Dioxide Level 26 mEQ/L (20-30) Anion Gap 12 (5-15) Blood Urea Nitrogen 6 mg/dL (7-23) L Creatinine 0.6 mg/dL (0.5-0.9) Estimat Glomerular Filtration Rate > 60 mL/min (>60) Glucose Level 78 mg/dL (74-106) Calcium Level 7.9 mg/dL (8.6-10.2) L Current Medications Medications (Trade) Dose Ordered Sig/Payam Route PRN Reason Start Time Stop Time Status Last Admin Dose Admin Acetaminophen (Tylenol) 650 mg Q4H PRN ORAL T>100.5 06/14/16 15:30 07/14/16 15:29 Acetaminophen/ Hydrocodone Bitart ([place] 10/325) 1 ea Q4H PRN ORAL moderate pain 06/14/16 14:45 06/21/16 14:44 06/18/16 08:24 Albuterol/ Ipratropium (DuoNeb 0.5-3(2.5)mg/3ml) 3 ml Q4H PRN HHN Shortness of Breath 06/14/16 15:30 06/19/16 15:29 Ceftriaxone Sodium/Dextrose (Rocephin/D5W) 110 ml @ 220 mls/hr Q24H IVPB 06/14/16 23:00 06/21/16 22:59 06/17/16 22:41 Chlordiazepoxide (Librium) 25 mg Q6H PRN ORAL anxiety, tachycardia 06/14/16 15:45 06/21/16 15:44 06/18/16 13:13 Clotrimazole (Lotrimin) 1 applic EVERY 12 HOURS TOPIC 06/15/16 09:00 07/15/16 08:59 06/18/16 09:54 Cyclobenzaprine HCl (Flexeril) 10 mg BEDTIME ORAL 06/14/16 21:00 07/14/16 20:59 06/17/16 21:30 Diphenhydramine HCl (Benadryl) 25 mg Q6H PRN IVP Itching 06/14/16 15:45 07/14/16 15:44 06/18/16 13:13 Folic Acid (Folate) 1 mg DAILY ORAL 06/16/16 09:00 07/16/16 08:59 06/18/16 08:25 Gabapentin (Neurontin) 300 mg THREE TIMES A DAY ORAL 06/14/16 18:00 07/14/16 17:59 06/18/16 13:13 Heparin Sodium (Porcine) (Heparin 5000 units/ml) 5,000 units EVERY 12 HOURS SUBQ 06/14/16 21:00 07/14/16 20:59 06/18/16 08:26 Metronidazole 100 ml @ 100 mls/hr Q8H IVPB 06/14/16 22:00 06/21/16 21:59 06/18/16 13:47 Morphine Sulfate (Morphine Sulfate) 2 mg Q4H PRN IVP PAIN 7-10 06/14/16 15:30 06/21/16 15:29 06/18/16 11:53 Multivitamins (Multivitamins) 1 tab DAILY ORAL 06/16/16 09:00 07/16/16 08:59 06/18/16 08:25 Nitroglycerin (Ntg) 0.4 mg Q5MIN X 3 DOSES PRN SL Prn Chest Pain 06/14/16 14:45 07/14/16 14:44 Ondansetron HCl (Zofran) 4 mg Q6H PRN IVP Nausea & Vomiting 06/14/16 15:30 07/14/16 15:29 06/18/16 11:53 Polyethylene Glycol (Miralax) 17 gm DAILYPRN PRN ORAL Constipation 06/15/16 15:30 07/15/16 15:29 Temazepam (Restoril) 15 mg HSPRN PRN ORAL Insomnia 06/14/16 15:30 06/21/16 15:29 06/17/16 21:30 Thiamine HCl (Vitamin B1) 100 mg DAILY ORAL 06/16/16 09:00 07/16/16 08:59 06/18/16 08:24 Tramadol HCl 50 mg 50 mg Q6H PRN ORAL Mild Pain (Pain Scale 1-3) 06/14/16 15:15 06/21/16 15:14 Vancomycin HCl (Vanco rx to dose) 1 ea DAILY PRN MISC . 06/15/16 09:00 07/15/16 08:59 Vancomycin HCl/ Dextrose (Vancomycin/D5W) 275 ml @ 183.708 mls/hr Q12HR@0400,1600 IVPB 06/14/16 16:00 06/19/16 15:59 06/18/16 04:40 Brandan Rubin M.D. Jun 18, 2016 15:18
[2016-06-18 15:59] VITALS: BP 90/57
--- NOTE | 2016-06-18 16:52 | General Progress Note ---
Assessment/Plan Assessment/Plan ASSESSMENT: 1. Anemia secondary to chronic disease - likely related to alcohol use, stable 2. Pancytopenia concerning for alcohol myelosuppression (should improve in next few days) 3. Leukopenia, possibly secondary to sepsis. Is stable. 4. Thrombocytopenia, potentially secondary to etoh myelosuppresion v meds 5. Abdominal pain. 6. Acute alcohol intoxication. 7. Urinary tract infection RECOMMENDATIONS: 1. Monitor counts - slowly better off etoh 2. Transfuse hemoglobin goal> 7 3. Transfuse of platelets goal > 20k 4. Macrocytosis related to etoh use 5. Alcohol cessation therapy, AA 6. Follow up on pain management, Pulm, ID, and Cardiology, neuro recs 7. Reviewed anemia w/u 8. Staff Thank you, Cassy Fontenot MD Subjective Constitutional: Reports: no symptoms HEENT: Reports: no symptoms Cardiovascular: Reports: no symptoms Respiratory: Reports: no symptoms Gastrointestinal/Abdominal: Reports: no symptoms Genitourinary: Reports: no symptoms Neurologic/Psychiatric: Reports: no symptoms Endocrine: Reports: no symptoms Hematologic/Lymphatic: Reports: no symptoms Allergies: Coded Allergies: IBUPROFEN (Verified Allergy, Severe, Anaphylaxis, 06/12/16) swollen face and lips NSAIDS (NON-STEROIDAL ANTI-INFLAMMA (Verified Allergy, Severe, Anaphylaxis , 06/12/16) swollen face and lips Uncoded Allergies: NSAIDS include Ibuprofen (Adverse Reaction, Severe, Anaphylaxis, 06/11/16) Swollen face and lip Objective Last 24 Hour Vital Signs Date Time Temp Pulse Resp B/P Pulse Ox O2 Delivery O2 Flow Rate FiO2 06/18/16 15:59 97.5 101 20 90/57 100 Room Air 06/18/16 11:58 97.0 96 18 115/86 100 Room Air 06/18/16 09:00 92 95 95 06/18/16 07:47 97.5 75 16 115/75 100 Room Air 06/18/16 07:10 77 18 Room Air 06/18/16 04:00 97.0 89 18 106/61 97 Room Air 06/18/16 00:00 97.7 86 18 100/57 98 Room Air 06/17/16 20:00 96.9 82 17 130/81 98 Room Air 06/17/16 19:22 92 18 Room Air Intake and Output 06/17/16 06/18/16 19:00 07:00 Intake Total 475.000 ml Balance 475.000 ml IV Total 475.000 ml # Bowel Movements 2 2 Laboratory Tests 06/18/16 05:55: White Blood Count 4.7L, Red Blood Count 2.35L, Hemoglobin 8.6L, Hematocrit 27.9L , Mean Corpuscular Volume 119H, Mean Corpuscular Hemoglobin 36.7H, Mean Corpuscular Hemoglobin Concent 31.0L, Red Cell Distribution Width 19.8H, Platelet Count 410, Mean Platelet Volume 4.7L, Neutrophils (%) (Auto) , Lymphocytes (%) (Auto) , Monocytes (%) (Auto) , Eosinophils (%) (Auto) , Basophils (%) (Auto) , Differential Total Cells Counted 100, Neutrophils % ( Manual) 37L, Lymphocytes % (Manual) 45, Monocytes % (Manual) 7, Eosinophils % ( Manual) 9H, Basophils % (Manual) 2, Band Neutrophils 0, Platelet Estimate Adequate, Platelet Morphology Normal, Hypochromasia 2+, Anisocytosis 2+, Macrocytosis 2+, Sodium Level 140, Potassium Level 3.5, Chloride Level 102, Carbon Dioxide Level 26, Anion Gap 12, Blood Urea Nitrogen 6L, Creatinine 0.6, Estimat Glomerular Filtration Rate > 60, Glucose Level 78, Calcium Level 7.9L Height (Feet): 5 Height (Inches): 8.00 Weight (Pounds): 145 General Appearance: no apparent distress Neck: supple Cardiovascular: regular rhythm Respiratory/Chest: lungs clear Abdomen: soft Pelvis: no active bleeding Extremities: non-tender Edema: no edema noted Arm (L), no edema noted Arm (R), no edema noted Leg (L), no edema noted Leg (R), no edema noted Pedal (L), no edema noted Pedal (R), no edema noted Generalized Edema: mild edema Skin: warm/dry Lymphatic: normal anterior cervical (L), normal anterior cervical (R), normal axillary (L), normal axillary (R), normal inguinal (L), normal inguinal (R), normal other, normal posterior cervical (L), normal posterior cervical (R), normal submandibular (L), normal submandibular (R), normal supraclavicular (L), normal supraclavicular (R) CASSY FONTENOT Jun 18, 2016 16:52
[2016-06-18 20:00] VITALS: BP 134/86
[2016-06-18] MEDS: Cyclobenzaprine 10mg Tab ORAL SCH (21:03)
[2016-06-18] MEDS: cefTRIAXone 2 GM in D5W 110 ML IVPB SCH (22:41)
[2016-06-19] VITALS: BP 122/72
[2016-06-19] MEDS: Vancomycin 1 GM in D5W 275 ML IVPB SCH ×2 (05:09→16:16)
[2016-06-19] MEDS: DiphenhydrAMINE 50mg/ml Inj IVP PRN ×3 (05:10→19:21)
[2016-06-19] MEDS: Morphine Sulfate 2mg/ml Inj IVP PRN ×5 (05:14→21:52)
[2016-06-19] MEDS: metroNIDAZOLE 500mg 100 ML IVPB SCH ×3 (07:05→21:51)
[2016-06-19 09:18] LABS: AMYLASE 87 U/L (10-110); LIPASE 168 U/L (< 60)
[2016-06-19] MEDS: Thiamine 100mg tab ORAL SCH (09:28)
[2016-06-19] MEDS: Heparin 5000 units/ml inj SUBQ SCH ×2 (09:30→21:51)
[2016-06-19] MEDS: chlordiazePOXIDE 25mg Cap ORAL PRN ×2 (09:41→16:56)
--- NOTE | 2016-06-19 10:17 | Infectious Diseases Prog Note ---
Assessment/Plan Problems: (1) UTI (urinary tract infection) Assessment & Plan: with culture grew pansensitive E coli, on ceftriaxon already (2) Ovarian cyst Assessment & Plan: recommend transvaginal US and follow up with [facility] (3) Acute alcohol intoxication Assessment & Plan: with no signs of withdrawal. needs counseling and rehabilitation, watch out for alcohol withdrawal. 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 Allergies: Coded Allergies: IBUPROFEN (Verified Allergy, Severe, Anaphylaxis, 06/12/16) swollen face and lips NSAIDS (NON-STEROIDAL ANTI-INFLAMMA (Verified Allergy, Severe, Anaphylaxis , 06/12/16) swollen face and lips Uncoded Allergies: NSAIDS include Ibuprofen (Adverse Reaction, Severe, Anaphylaxis, 06/11/16) Swollen face and lip All Systems: reviewed and negative except above Objective Vital Signs Last 24 Hour Vital Signs Date Time Temp Pulse Resp B/P Pulse Ox O2 Delivery O2 Flow Rate FiO2 06/19/16 00:00 98.1 95 18 122/72 95 Room Air 06/18/16 23:09 97.5 06/18/16 22:02 97.5 06/18/16 20:00 96.8 100 22 134/86 99 Room Air 06/18/16 19:30 80 20 Room Air 21 06/18/16 15:59 97.5 101 20 90/57 100 Room Air 06/18/16 11:58 97.0 96 18 115/86 100 Room Air Height (Feet): 5 Height (Inches): 8.00 Weight (Pounds): 145 General Appearance: WD/WN, no acute distress HEENT: normocephalic, atraumatic, mucous membranes moist Respiratory/Chest: chest wall non-tender, lungs clear, normal breath sounds, no respiratory distress, no accessory muscle use Cardiovascular: normal peripheral pulses, normal rate, regular rhythm, no gallop/murmur Abdomen: normal bowel sounds, soft, non tender, no organomegaly, non distended , no mass, no scars Skin: no rash, no lesions, other - hydradenitis Laboratory Tests Test 06/19/16 08:45 Amylase Level 87 U/L (10-110) Lipase 168 U/L (< 60) H Current Medications Medications (Trade) Dose Ordered Sig/Payam Route PRN Reason Start Time Stop Time Status Last Admin Dose Admin Acetaminophen (Tylenol) 650 mg Q4H PRN ORAL T>100.5 06/14/16 15:30 07/14/16 15:29 Acetaminophen/ Hydrocodone Bitart (Nichols 10/325) 1 ea Q4H PRN ORAL moderate pain 06/14/16 14:45 06/21/16 14:44 06/18/16 08:24 Albuterol/ Ipratropium (DuoNeb 0.5-3(2.5)mg/3ml) 3 ml Q4H PRN HHN Shortness of Breath 06/14/16 15:30 06/19/16 15:29 Ceftriaxone Sodium/Dextrose (Rocephin/D5W) 110 ml @ 220 mls/hr Q24H IVPB 06/14/16 23:00 06/21/16 22:59 06/18/16 22:41 Chlordiazepoxide (Librium) 25 mg Q6H PRN ORAL anxiety, tachycardia 06/14/16 15:45 06/21/16 15:44 06/19/16 09:41 Clotrimazole (Lotrimin) 1 applic EVERY 12 HOURS TOPIC 06/15/16 09:00 07/15/16 08:59 06/19/16 09:31 Cyclobenzaprine HCl (Flexeril) 10 mg BEDTIME ORAL 06/14/16 21:00 07/14/16 20:59 06/18/16 21:03 Diphenhydramine HCl (Benadryl) 25 mg Q6H PRN IVP Itching 06/14/16 15:45 07/14/16 15:44 06/19/16 05:10 Folic Acid (Folate) 1 mg DAILY ORAL 06/16/16 09:00 07/16/16 08:59 06/19/16 09:28 Gabapentin (Neurontin) 300 mg THREE TIMES A DAY ORAL 06/14/16 18:00 07/14/16 17:59 06/19/16 09:28 Heparin Sodium (Porcine) (Heparin 5000 units/ml) 5,000 units EVERY 12 HOURS SUBQ 06/14/16 21:00 07/14/16 20:59 06/19/16 09:30 Metronidazole 100 ml @ 100 mls/hr Q8H IVPB 06/14/16 22:00 06/21/16 21:59 06/19/16 07:05 Morphine Sulfate (Morphine Sulfate) 2 mg Q4H PRN IVP PAIN 7-10 06/14/16 15:30 06/21/16 15:29 06/19/16 09:29 Multivitamins (Multivitamins) 1 tab DAILY ORAL 06/16/16 09:00 07/16/16 08:59 06/19/16 09:28 Nitroglycerin (Ntg) 0.4 mg Q5MIN X 3 DOSES PRN SL Prn Chest Pain 06/14/16 14:45 07/14/16 14:44 Ondansetron HCl (Zofran) 4 mg Q6H PRN IVP Nausea & Vomiting 06/14/16 15:30 07/14/16 15:29 06/19/16 05:10 Polyethylene Glycol (Miralax) 17 gm DAILYPRN PRN ORAL Constipation 06/15/16 15:30 07/15/16 15:29 Temazepam (Restoril) 15 mg HSPRN PRN ORAL Insomnia 06/14/16 15:30 06/21/16 15:29 06/18/16 22:39 Thiamine HCl (Vitamin B1) 100 mg DAILY ORAL 06/16/16 09:00 07/16/16 08:59 06/19/16 09:28 Tramadol HCl 50 mg 50 mg Q6H PRN ORAL Mild Pain (Pain Scale 1-3) 06/14/16 15:15 06/21/16 15:14 Vancomycin HCl (Vanco rx to dose) 1 ea DAILY PRN MISC . 06/15/16 09:00 07/15/16 08:59 Vancomycin HCl/ Dextrose (Vancomycin/D5W) 275 ml @ 183.708 mls/hr Q12HR@0400,1600 IVPB 06/14/16 16:00 06/25/16 15:59 06/19/16 05:09 Brandan Rubin M.D. Jun 19, 2016 10:17
--- NOTE | 2016-06-19 10:52 | General Progress Note ---
Assessment/Plan Assessment/Plan (1) Intractable pain (2) Hydradenitis (4) Lumbar DDD (5) Lumbar Spondylosis (6) Morbid obesity S/p gastric sleeve surgery (7) Abdominal pain The patient will be continued on tramadol, morphine, [place] and Neurontin. The patient was discussed with Dr. Art and Dr. Art concurred. Subjective Date patient seen: Jun 19, 2016 Time patient seen: 10:30 - am Allergies: Coded Allergies: IBUPROFEN (Verified Allergy, Severe, Anaphylaxis, 06/12/16) swollen face and lips NSAIDS (NON-STEROIDAL ANTI-INFLAMMA (Verified Allergy, Severe, Anaphylaxis , 06/12/16) swollen face and lips Uncoded Allergies: NSAIDS include Ibuprofen (Adverse Reaction, Severe, Anaphylaxis, 06/11/16) Swollen face and lip Subjective REVIEW OF SYSTEMS: Denies rash, fever, chills, sweating, dizziness, drowsiness, blurred vision, sore throat, or change in her weight. No shortness of breath or chest pain. No nausea or vomiting at this time. No bowel or bladder incontinence. No dysuria. She is complaining of abdominal pain, back pain, right armpit pain, and lower extremity pain. SUBJECTIVE: Pt reports that her pain has been tolerated on the medications. Objective Last 24 Hour Vital Signs Date Time Temp Pulse Resp B/P Pulse Ox O2 Delivery O2 Flow Rate FiO2 06/19/16 00:00 98.1 95 18 122/72 95 Room Air 06/18/16 23:09 97.5 06/18/16 22:02 97.5 06/18/16 20:00 96.8 100 22 134/86 99 Room Air 06/18/16 19:30 80 20 Room Air 21 06/18/16 15:59 97.5 101 20 90/57 100 Room Air 06/18/16 11:58 97.0 96 18 115/86 100 Room Air Intake and Output 06/18/16 06/19/16 19:00 07:00 Intake Total 1475.000 ml 1290 ml Output Total 400 ml 600 ml Balance 1075.000 ml 690 ml Intake Oral 1100 ml 1080 ml IV Total 375.000 ml 210 ml Output Urine Total 400 ml 600 ml # Voids 2 2 # Bowel Movements 2 Laboratory Tests 06/19/16 08:45: Amylase Level 87, Lipase 168H Height (Feet): 5 Height (Inches): 8.00 Weight (Pounds): 145 Objective PHYSICAL EXAMINATION: GENERAL: Alert, awake, and oriented x3. HEENT: PERRLA. NECK: Range of motion is full in all directions. No tenderness. No adenopathy. LUNGS: Clear. HEART: Regular. ABDOMEN: Tenderness to palpation. BACK: Range of motion is decreased in flexion and extension with tenderness to paraspinal muscles and trapezial muscles. EXTREMITIES: Motor is intact. No cyanosis. No clubbing. NEURO: No changes. Procedure: MRI C Spine w/wo Contrast Findings: Comparison: None Spinal cord demonstrates normal configuration and signal characteristics. No intradural or extradural mass, fluid collection, other signal abnormality or abnormal enhancement. Spinal canal, lateral recesses and neural foramina normal caliber throughout. Cervical vertebrae are normal in configuration and marrow signal characteristics, normally aligned. Intervertebral discs are normal in height, signal, and configuration. No significant annular bulge/protrusion or marginal osteophyte formation. Paraspinous soft tissues are unremarkable. IMPRESSION: Negative MRI of the cervical spine without and with gadolinium Procedure: MRI T Spine w/wo Contrast Motion artifact degrades all images. Spinal cord demonstrates normal configuration and signal characteristics. No intradural or extradural mass, fluid collection, other signal abnormality or abnormal enhancement. Spinal canal, lateral recesses and neural foramina normal caliber throughout. Thoracic vertebrae are normal in configuration and marrow signal characteristics, normally aligned. T7-8 intervertebral disc mildly decreased in height and signal with mild posterior protrusion. T10-11 intervertebral disc mildly decreased in height and signal with anterior annular bulge-osteophyte complex. Remainder of intervertebral discs are normal in height, signal, and configuration. Paraspinous soft tissues are unremarkable. IMPRESSION: Multilevel mild degenerative disc disease. No obvious neural impingement. Otherwise negative MRI of the thoracic without and with gadolinium OMARI LUA Jun 19, 2016 10:52
--- NOTE | 2016-06-19 12:00 | General Progress Note ---
Assessment/Plan Status: stable Assessment/Plan - Dehydration, Hypokalemia - Sepsis - Abdominal pain , abnormal LFTs - Severe anemia - Acute alcohol intoxication, fatty infilt liver - UTI (urinary tract infection) - Ascending paraparesis,r/o spinal cotd compression r/o GBS Plan: K supplements- as needed Per consultants- monitor renal parameters and electrolytes- not much to add from renal stand point ? DC planning? Subjective ROS Limited/Unobtainable: No Constitutional: Reports: malaise Allergies: Coded Allergies: IBUPROFEN (Verified Allergy, Severe, Anaphylaxis, 06/12/16) swollen face and lips NSAIDS (NON-STEROIDAL ANTI-INFLAMMA (Verified Allergy, Severe, Anaphylaxis , 06/12/16) swollen face and lips Uncoded Allergies: NSAIDS include Ibuprofen (Adverse Reaction, Severe, Anaphylaxis, 06/11/16) Swollen face and lip Objective Last 24 Hour Vital Signs Date Time Temp Pulse Resp B/P Pulse Ox O2 Delivery O2 Flow Rate FiO2 06/19/16 08:15 79 20 Room Air 21 06/19/16 00:00 98.1 95 18 122/72 95 Room Air 06/18/16 23:09 97.5 06/18/16 22:02 97.5 06/18/16 20:00 96.8 100 22 134/86 99 Room Air 06/18/16 19:30 80 20 Room Air 21 06/18/16 15:59 97.5 101 20 90/57 100 Room Air Intake and Output 06/18/16 06/19/16 19:00 07:00 Intake Total 1475.000 ml 1290 ml Output Total 400 ml 600 ml Balance 1075.000 ml 690 ml Intake Oral 1100 ml 1080 ml IV Total 375.000 ml 210 ml Output Urine Total 400 ml 600 ml # Voids 2 2 # Bowel Movements 2 Laboratory Tests 06/19/16 08:45: Amylase Level 87, Lipase 168H Height (Feet): 5 Height (Inches): 8.00 Weight (Pounds): 145 General Appearance: no apparent distress Objective other PE not changed ROSA COYLE Jun 19, 2016 12:00
[2016-06-19 12:15] VITALS: BP 112/70
--- NOTE | 2016-06-19 13:46 | General Progress Note ---
Assessment/Plan Assessment/Plan ASSESSMENT: 1. Anemia secondary to chronic disease - likely related to alcohol use, is stable 2. Pancytopenia concerning for alcohol myelosuppression (should improve in next few days) 3. Leukopenia, possibly secondary to sepsis. Is stable. 4. Thrombocytopenia, potentially secondary to etoh myelosuppresion v meds 5. Abdominal pain. 6. Acute alcohol intoxication. 7. Urinary tract infection RECOMMENDATIONS: 1. Monitor counts - slowly better off etoh 2. Transfuse hemoglobin goal> 7 3. Transfuse of platelets goal > 20k 4. Macrocytosis related to etoh use 5. Alcohol cessation therapy, AA 6. F/U on pain management, Pulm, ID, and Cardiology, neuro recs 7. Reviewed anemia w/u 8. Staff Thank you, Stephon Fontenot MD Subjective Constitutional: Reports: no symptoms HEENT: Reports: no symptoms Cardiovascular: Reports: no symptoms Respiratory: Reports: no symptoms Gastrointestinal/Abdominal: Reports: no symptoms Neurologic/Psychiatric: Reports: no symptoms Endocrine: Reports: no symptoms Hematologic/Lymphatic: Reports: anemia Allergies: Coded Allergies: IBUPROFEN (Verified Allergy, Severe, Anaphylaxis, 06/12/16) swollen face and lips NSAIDS (NON-STEROIDAL ANTI-INFLAMMA (Verified Allergy, Severe, Anaphylaxis , 06/12/16) swollen face and lips Uncoded Allergies: NSAIDS include Ibuprofen (Adverse Reaction, Severe, Anaphylaxis, 06/11/16) Swollen face and lip Subjective stable, no fevers, not bleeding, no complaints, no hematochezia noted Objective Last 24 Hour Vital Signs Date Time Temp Pulse Resp B/P Pulse Ox O2 Delivery O2 Flow Rate FiO2 06/19/16 12:15 97.7 83 21 112/70 99 Room Air 06/19/16 09:25 104 06/19/16 09:20 118 06/19/16 09:15 108 06/19/16 08:15 79 20 Room Air 21 06/19/16 00:00 98.1 95 18 122/72 95 Room Air 06/18/16 23:09 97.5 06/18/16 22:02 97.5 06/18/16 20:00 96.8 100 22 134/86 99 Room Air 06/18/16 19:30 80 20 Room Air 21 06/18/16 15:59 97.5 101 20 90/57 100 Room Air Intake and Output 06/18/16 06/19/16 19:00 07:00 Intake Total 1475.000 ml 1290 ml Output Total 400 ml 600 ml Balance 1075.000 ml 690 ml Intake Oral 1100 ml 1080 ml IV Total 375.000 ml 210 ml Output Urine Total 400 ml 600 ml # Voids 2 2 # Bowel Movements 2 Laboratory Tests 06/19/16 08:45: Amylase Level 87, Lipase 168H Height (Feet): 5 Height (Inches): 8.00 Weight (Pounds): 145 General Appearance: WD/WN EENT: TMs normal Neck: normal alignment Cardiovascular: regular rhythm Respiratory/Chest: no respiratory distress Extremities: non-tender Edema: no edema noted Leg (L), no edema noted Leg (R) Neurologic: alert Skin: warm/dry Stephon Fontenot Jun 19, 2016 13:46
--- NOTE | 2016-06-19 13:50 | Neurology Progress Note ---
Interim History Interim History Interim History Ms. Trevino feels better. She slept well last night. The legs are stronger She has been able to stand and walk a little. The mind is clear. The generalized body ache is better. The altered sensation continues from her chest downwards. She denies any new neurologic symptoms. Review of Systems Neuro Review of Systems Benign. Objective Physical Exam Last Vital Signs Date Time Temp Pulse Resp B/P Pulse Ox O2 Delivery O2 Flow Rate FiO2 06/19/16 12:15 97.7 83 21 112/70 99 Room Air 06/19/16 08:15 21 06/13/16 06:30 2.0 Laboratory Tests Test 06/19/16 08:45 Amylase Level 87 U/L (10-110) Lipase 168 U/L (< 60) H Neurologic Exam Objective PHYSICAL EXAMINATION: GENERAL: She is a well-developed, well-nourished, obese, Black lady, lying in bed, no acute distress. HEAD: Normocephalic and atraumatic. EENT: Examination benign. NECK: No neck rigidity was observed. NEUROLOGICAL EXAMINATION: MENTAL STATUS EXAMINATION: She was alert and awake. She was oriented to person, place, and time. She was able to recall 3/3 words immediately after 1 minute and after 3 minutes. She was able to remember presidents TrWilshire Axon through [employer]. Her mathematical skills were impaired His visuospatial function was impaired. SPEECH: She had no dysarthria. LANGUAGE: She had no aphasia. CRANIAL NERVE EXAMINATION: II: The visual vargas were intact to confrontation testing. III, IV & : The external ocular movements were full and the pupils 3 mm in diameter, equal, round, regular and reactive to light. V: She had normal facial sensations in the temporales, masseters, and pterygoids functioned normally. VII: She had normal facial expression and no facial asymmetry. VIII: She able to hear well bilaterally and had no nystagmus. IX: The palate moved symmetrically on phonation. X: She had no hoarseness of voice. XI: The sternocleidomastoids and trapezii functioned normally. XII: The tongue was in the midline without any fasciculations or atrophy. MOTOR SYSTEM: The tone was normal in all four extremities. Examination of muscle mass revealed no focal wasting. Examination of power revealed G 5/5 power in both upper extremities. In the lower extremities she exhibited give-way weakness and had: G 4-/5 in the iliopsoas. G 5/5 in the quadriceps. G 4++/5 in the hamstrings. G 4++/5 in the ankle dorsiflexors, and toe extensors. G 5-/5 in the ankle plantar flexors and toe flexors. SENSORY EXAMINATION: She had altered sensations to pinprick and light touch below T6. REFLEXES: 1+ and bilaterally symmetrical at the biceps, triceps, brachioradialis and knees. 0 at both ankles. The plantar responses were flexor bilaterally. STANCE & GAIT: Could not be tested. Impression/Recommendations Diagnostic Impression 1. Ms Alyssa Trevino is a 40 year old, right handed, Black lady who was admitted for feeling ill, unable to eat, numbness and weakness in the lower extremities. 2. She continues to improve. Her legs are stronger but the numbness in the legs is about the same. 3. On neurologic examination, at this time, she exhibits cognitive dysfunction. She also has a paraparesis with significant give way weakness - the paraparesis is better. In addition she has a T6 sensory level. Her reflexes are globally diminished but not lost. 4. It is still unclear as to what exactly is causing her lower extremity weakness and numbness starting at the T6 level - she may have had a viral syndrome causing the problem. 5. Structural cord pathology has been excluded. Recommendations 1. Continue present management. 2. Mobilize with PT/OT. 3. Rehabilitation. Ana Ball M.D., M.S.P.H. ANA BALL Jun 19, 2016 13:50
--- NOTE | 2016-06-19 14:13 | Pulmonology Progress Note ---
Assessment/Plan Assessment/Plan ASSESSMENT Sepsis Abdominal pain macrocytic anemia anemia pf chronic disease ( due to alcohol abuse) pancytopenia (concerning for alcohol myelosuppression ) Acute alcohol intoxication UTI (urinary tract infection)/E coli mild pulmonary HTN fatty liver disease R axillary HS PLAN OF CARE off IVF diet as tolerated continue antibiotics, ID follows, urine cx + E coli HH at baseline, transfuse prn heme follows anemia of chronic disease ( alcohol abuse), and macrocytic on folate, thiamine, MVI, initially low folate level, repeated-stable pancytopenia with concern for alcohol myelosuppression monitor counts urine tox screen negative alcohol level -31; Librium prn crisis intervention counselor on abstinence from ETOH, refer to AA monitor LFT, noted elevated GGT abdomen US and CT A/P noted, + fatty liver disease management of fatty liver disease as outpatient with GI lipase still elevated, trend ECHO with preserved EF and evidence of mild pulmonary HTN O2 HHN prn CXR with midlung atelectasis, no other acute cardiopulmonary pathology plastic surgeon riccardo noted, will need surgery, fup with plastic surgeon as outpatient dc plan as per PMD , stable cardiopulmonary status case discussed and evaluated by supervising physician Subjective Allergies: Coded Allergies: IBUPROFEN (Verified Allergy, Severe, Anaphylaxis, 06/12/16) swollen face and lips NSAIDS (NON-STEROIDAL ANTI-INFLAMMA (Verified Allergy, Severe, Anaphylaxis , 06/12/16) swollen face and lips Uncoded Allergies: NSAIDS include Ibuprofen (Adverse Reaction, Severe, Anaphylaxis, 06/11/16) Swollen face and lip Subjective no leukocytosis, afebrile HH at baseline on RA sat stable, no signs of respiratory distress, no SOB, no cough Objective Last 24 Hour Vital Signs Date Time Temp Pulse Resp B/P Pulse Ox O2 Delivery O2 Flow Rate FiO2 06/19/16 12:15 97.7 83 21 112/70 99 Room Air 06/19/16 09:25 104 06/19/16 09:20 118 06/19/16 09:15 108 06/19/16 08:15 79 20 Room Air 21 06/19/16 00:00 98.1 95 18 122/72 95 Room Air 06/18/16 23:09 97.5 06/18/16 22:02 97.5 06/18/16 20:00 96.8 100 22 134/86 99 Room Air 06/18/16 19:30 80 20 Room Air 21 06/18/16 15:59 97.5 101 20 90/57 100 Room Air Intake and Output 06/18/16 06/19/16 19:00 07:00 Intake Total 1475.000 ml 1290 ml Output Total 400 ml 600 ml Balance 1075.000 ml 690 ml Intake Oral 1100 ml 1080 ml IV Total 375.000 ml 210 ml Output Urine Total 400 ml 600 ml # Voids 2 2 # Bowel Movements 2 Objective HEENT: normocephalic, atraumatic, anicteric, mucous membranes moist Respiratory/Chest: lungs clear - with moderate air entry , no respiratory distress, no accessory muscle use Cardiovascular: normal peripheral pulses, normal rate, regular rhythm, no JVD Abdomen: normal bowel sounds, soft, non tender Genitourinary: normal external genitalia Extremities: no edema, pedal pulses normal Neurologic/Psychiatric: alert, responsive Musculoskeletal: normal muscle bulk Laboratory Tests 06/19/16 08:45: Amylase Level 87, Lipase 168H Current Medications Medications (Trade) Dose Ordered Sig/Payam Route PRN Reason Start Time Stop Time Status Last Admin Dose Admin Acetaminophen (Tylenol) 650 mg Q4H PRN ORAL T>100.5 06/14/16 15:30 07/14/16 15:29 Acetaminophen/ Hydrocodone Bitart ([place] 10/325) 1 ea Q4H PRN ORAL moderate pain 06/14/16 14:45 06/21/16 14:44 06/18/16 08:24 Albuterol/ Ipratropium (DuoNeb 0.5-3(2.5)mg/3ml) 3 ml Q4H PRN HHN Shortness of Breath 06/14/16 15:30 06/19/16 15:29 Ceftriaxone Sodium/Dextrose (Rocephin/D5W) 110 ml @ 220 mls/hr Q24H IVPB 06/14/16 23:00 06/21/16 22:59 06/18/16 22:41 Chlordiazepoxide (Librium) 25 mg Q6H PRN ORAL anxiety, tachycardia 06/14/16 15:45 06/21/16 15:44 06/19/16 09:41 Clotrimazole (Lotrimin) 1 applic EVERY 12 HOURS TOPIC 06/15/16 09:00 07/15/16 08:59 06/19/16 09:31 Cyclobenzaprine HCl (Flexeril) 10 mg BEDTIME ORAL 06/14/16 21:00 07/14/16 20:59 06/18/16 21:03 Diphenhydramine HCl (Benadryl) 25 mg Q6H PRN IVP Itching 06/14/16 15:45 07/14/16 15:44 06/19/16 12:35 Folic Acid (Folate) 1 mg DAILY ORAL 06/16/16 09:00 07/16/16 08:59 06/19/16 09:28 Gabapentin (Neurontin) 300 mg THREE TIMES A DAY ORAL 06/14/16 18:00 07/14/16 17:59 06/19/16 13:38 Heparin Sodium (Porcine) (Heparin 5000 units/ml) 5,000 units EVERY 12 HOURS SUBQ 06/14/16 21:00 07/14/16 20:59 06/19/16 09:30 Metronidazole 100 ml @ 100 mls/hr Q8H IVPB 06/14/16 22:00 06/21/16 21:59 06/19/16 13:38 Morphine Sulfate (Morphine Sulfate) 2 mg Q4H PRN IVP PAIN 7-10 06/14/16 15:30 06/21/16 15:29 06/19/16 13:38 Multivitamins (Multivitamins) 1 tab DAILY ORAL 06/16/16 09:00 07/16/16 08:59 06/19/16 09:28 Nitroglycerin (Ntg) 0.4 mg Q5MIN X 3 DOSES PRN SL Prn Chest Pain 06/14/16 14:45 07/14/16 14:44 Ondansetron HCl (Zofran) 4 mg Q6H PRN IVP Nausea & Vomiting 06/14/16 15:30 07/14/16 15:29 06/19/16 12:35 Polyethylene Glycol (Miralax) 17 gm DAILYPRN PRN ORAL Constipation 06/15/16 15:30 07/15/16 15:29 Temazepam (Restoril) 15 mg HSPRN PRN ORAL Insomnia 06/14/16 15:30 06/21/16 15:29 06/18/16 22:39 Thiamine HCl (Vitamin B1) 100 mg DAILY ORAL 06/16/16 09:00 07/16/16 08:59 06/19/16 09:28 Tramadol HCl 50 mg 50 mg Q6H PRN ORAL Mild Pain (Pain Scale 1-3) 06/14/16 15:15 06/21/16 15:14 Vancomycin HCl (Vanco rx to dose) 1 ea DAILY PRN MISC . 06/15/16 09:00 07/15/16 08:59 Vancomycin HCl/ Dextrose (Vancomycin/D5W) 275 ml @ 183.708 mls/hr Q12HR@0400,1600 IVPB 06/14/16 16:00 06/25/16 15:59 06/19/16 05:09 Jose (Marycarmen)Juhi NP Jun 19, 2016 14:13
--- NOTE | 2016-06-19 15:50 | General Progress Note ---
Assessment/Plan Problem List: (1) Alcoholic pancreatitis ICD Codes: K85.20 - Alcohol induced acute pancreatitis without necrosis or infection SNOMED: 968507397 Assessment/Plan tolerating diet no abd pain repeat amylase and lipase>>> improving dc planning per primary team Subjective ROS Limited/Unobtainable: Yes Allergies: Coded Allergies: IBUPROFEN (Verified Allergy, Severe, Anaphylaxis, 06/12/16) swollen face and lips NSAIDS (NON-STEROIDAL ANTI-INFLAMMA (Verified Allergy, Severe, Anaphylaxis , 06/12/16) swollen face and lips Uncoded Allergies: NSAIDS include Ibuprofen (Adverse Reaction, Severe, Anaphylaxis, 06/11/16) Swollen face and lip Subjective no abd pain Objective Last 24 Hour Vital Signs Date Time Temp Pulse Resp B/P Pulse Ox O2 Delivery O2 Flow Rate FiO2 06/19/16 12:15 97.7 83 21 112/70 99 Room Air 06/19/16 09:25 104 06/19/16 09:20 118 06/19/16 09:15 108 06/19/16 08:15 79 20 Room Air 21 06/19/16 00:00 98.1 95 18 122/72 95 Room Air 06/18/16 23:09 97.5 06/18/16 22:02 97.5 06/18/16 20:00 96.8 100 22 134/86 99 Room Air 06/18/16 19:30 80 20 Room Air 21 06/18/16 15:59 97.5 101 20 90/57 100 Room Air Intake and Output 06/18/16 06/19/16 19:00 07:00 Intake Total 1475.000 ml 1290 ml Output Total 400 ml 600 ml Balance 1075.000 ml 690 ml Intake Oral 1100 ml 1080 ml IV Total 375.000 ml 210 ml Output Urine Total 400 ml 600 ml # Voids 2 2 # Bowel Movements 2 Laboratory Tests 06/19/16 08:45: Amylase Level 87, Lipase 168H Height (Feet): 5 Height (Inches): 8.00 Weight (Pounds): 145 General Appearance: alert EENT: normal ENT inspection Neck: supple Cardiovascular: normal rate Respiratory/Chest: lungs clear Abdomen: normal bowel sounds, non tender, soft Extremities: non-tender VIDAL ROBERTS Jun 19, 2016 15:50
[2016-06-19 16:00] VITALS: BP 147/102
[2016-06-19 19:00] VITALS: BP 140/90
[2016-06-19] MEDS: Cyclobenzaprine 10mg Tab ORAL SCH (21:52)
[2016-06-19] MEDS: cefTRIAXone 2 GM in D5W 110 ML IVPB SCH (23:10)
[2016-06-20] VITALS: BP 130/70
[2016-06-20] MEDS: chlordiazePOXIDE 25mg Cap ORAL PRN ×2 (00:14→06:35)
[2016-06-20] MEDS: Vancomycin 1 GM in D5W 275 ML IVPB SCH (03:52)
[2016-06-20] MEDS: DiphenhydrAMINE 50mg/ml Inj IVP PRN ×2 (03:53→08:00)
[2016-06-20] MEDS: Morphine Sulfate 2mg/ml Inj IVP PRN ×3 (03:54→12:11)
[2016-06-20 04:06] VITALS: BP 131/77
[2016-06-20] MEDS: metroNIDAZOLE 500mg 100 ML IVPB SCH (06:34)
[2016-06-20 07:45] LABS: MEAN CORPUSCULAR HGB CONC 31.1 G/DL (32.0-36.0); MEAN CORPUSCULAR VOLUME 116 FL (80-99); MEAN PLATELET VOLUME 4.4 FL (6.5-10.1); PLATELET COUNT 573 K/UL (150-450); RED BLOOD COUNT 2.36 M/UL (4.20-5.40); RED CELL DISTRIBUTION WIDTH 20.3 % (11.6-14.8); WHITE BLOOD COUNT 4.7 K/UL (4.8-10.8)
[2016-06-20 07:53] LABS: ANION GAP 13 (5-15); CALCIUM 8.2 mg/dL (8.6-10.2); CARBON DIOXIDE 26 mEQ/L (20-30); CHLORIDE 103 mEQ/L (98-107); CREATININE 0.6 mg/dL (0.5-0.9); GLOMERULAR FILTRATION RATE > 60 mL/min (>60); HEMOLYSIS 5; POTASSIUM 3.6 mEQ/L (3.4-4.9); SODIUM 142 mEQ/L (135-145)
[2016-06-20 08:00] VITALS: BP 109/59
[2016-06-20 08:25] LABS: BAND NEUTROPHILS % (MANUAL) 0 % (0-8); BASOPHILS % (MANUAL) 0 % (0-2); EOSINOPHILS % (MANUAL) 5 % (0-3); LYMPHOCYTES % (MANUAL) 20 % (20-45); NEUTROPHILS % (MANUAL) 69 % (45-75); PLATELET ESTIMATE INCREASED; PLATELET MORPHOLOGY NORMAL; TOTAL CELLS COUNTED 100
[2016-06-20] MEDS: Thiamine 100mg tab ORAL SCH (08:33)
[2016-06-20] MEDS: Heparin 5000 units/ml inj SUBQ SCH (08:35)
--- NOTE | 2016-06-20 10:38 | GI Progress Note ---
Assessment/Plan Problems: (1) Alcoholic pancreatitis ICD Codes: K85.20 - Alcohol induced acute pancreatitis without necrosis or infection SNOMED: 065359812 (2) Abdominal pain ICD Codes: R10.9 - Unspecified abdominal pain SNOMED: 82904259 (3) Severe malnutrition ICD Codes: E43 - Unspecified severe protein-calorie malnutrition SNOMED: 37781295 Status: stable Status Narrative Discussed with Dr. Jones. Assessment/Plan ok for DC per GI standpoint APCT reviewed. LP reviewed hep panel negative iron elevation elevated lactic acid resolving acute alcoholic pancreatitis stable H&H elevated lipase >> downtrending >> less abdominal pain PT evaluation noted regular diet tolerated pain mgmt alcoholic cessation education given Subjective Subjective generalized pain, more directed at the leg had a BM yesterday, soft Objective Last 24 Hour Vital Signs Date Time Temp Pulse Resp B/P Pulse Ox O2 Delivery O2 Flow Rate FiO2 06/20/16 09:00 94 06/20/16 08:00 97.3 94 18 109/59 96 Room Air 06/20/16 07:11 81 18 Room Air 06/20/16 04:06 98.0 87 19 131/77 97 Room Air 06/20/16 00:00 98.1 81 19 130/70 98 Room Air 06/19/16 22:22 97.7 06/19/16 22:22 97.7 06/19/16 19:24 86 18 Room Air 06/19/16 19:00 97.7 80 20 140/90 98 Room Air 06/19/16 16:00 97.9 82 20 147/102 96 Room Air 06/19/16 12:15 97.7 83 21 112/70 99 Room Air Intake and Output 06/19/16 06/20/16 19:00 07:00 Intake Total 790 ml 480 ml Output Total 600 ml Balance 790 ml -120 ml Intake Oral 240 ml 480 ml IV Total 550 ml Output Urine Total 600 ml # Voids 4 Laboratory Tests Test 06/20/16 05:55 White Blood Count 4.7 K/UL (4.8-10.8) L Red Blood Count 2.36 M/UL (4.20-5.40) L Hemoglobin 8.5 G/DL (12.0-16.0) L Hematocrit 27.4 % (37.0-47.0) L Mean Corpuscular Volume 116 FL (80-99) H Mean Corpuscular Hemoglobin 36.0 PG (27.0-31.0) H Mean Corpuscular Hemoglobin Concent 31.1 G/DL (32.0-36.0) L Red Cell Distribution Width 20.3 % (11.6-14.8) H Platelet Count 573 K/UL (150-450) H Mean Platelet Volume 4.4 FL (6.5-10.1) L Neutrophils (%) (Auto) % (45.0-75.0) Lymphocytes (%) (Auto) % (20.0-45.0) Monocytes (%) (Auto) % (1.0-10.0) Eosinophils (%) (Auto) % (0.0-3.0) Basophils (%) (Auto) % (0.0-2.0) Differential Total Cells Counted 100 Neutrophils % (Manual) 69 % (45-75) Lymphocytes % (Manual) 20 % (20-45) Monocytes % (Manual) 6 % (1-10) Eosinophils % (Manual) 5 % (0-3) H Basophils % (Manual) 0 % (0-2) Band Neutrophils 0 % (0-8) Platelet Estimate Increased H Platelet Morphology Normal Red Blood Cell Morphology Normal Sodium Level 142 mEQ/L (135-145) Potassium Level 3.6 mEQ/L (3.4-4.9) Chloride Level 103 mEQ/L (98-107) Carbon Dioxide Level 26 mEQ/L (20-30) Anion Gap 13 (5-15) Blood Urea Nitrogen 5 mg/dL (7-23) L Creatinine 0.6 mg/dL (0.5-0.9) Estimat Glomerular Filtration Rate > 60 mL/min (>60) Glucose Level 70 mg/dL (74-106) L Calcium Level 8.2 mg/dL (8.6-10.2) L Height (Feet): 5 Height (Inches): 8.00 Weight (Pounds): 145 General Appearance: no apparent distress, alert Cardiovascular: normal rate Respiratory/Chest: normal breath sounds, no respiratory distress Abdominal Exam: normal bowel sounds, non tender Extremities: normal range of motion Nayeli Box N.P. Jun 20, 2016 10:38
[2016-06-20] MEDS ORDERED: LEVAQUIN500 MG ORAL (11:05)
[2016-06-20] MEDS ORDERED: CLEOCIN150 MG ORAL (11:05)
[2016-06-20] MEDS ORDERED: NORCO 5-325 TA1 EAC1 ORAL (11:07)
--- NOTE | 2016-06-20 11:34 | General Progress Note ---
Assessment/Plan Problem List: (1) Cellulitis (2) UTI (urinary tract infection) ICD Codes: N39.0 - Urinary tract infection, site not specified SNOMED: 09261409 (3) Severe sepsis ICD Codes: A41.9 - Sepsis, unspecified organism; R65.20 - Severe sepsis without septic shock SNOMED: 84123698 (4) Weak ICD Codes: R53.1 - Weakness SNOMED: 20528579 (5) Abdominal pain ICD Codes: R10.9 - Unspecified abdominal pain SNOMED: 49807246 (6) Anxiety ICD Codes: F41.9 - Anxiety disorder, unspecified SNOMED: 64563280 (7) Sepsis ICD Codes: A41.9 - Sepsis, unspecified organism SNOMED: 61074008 Status: progressing Assessment/Plan afebrile rewieved meds cellulitis improving reviewed chart and labs anemia Subjective ROS Limited/Unobtainable: Yes Allergies: Coded Allergies: IBUPROFEN (Verified Allergy, Severe, Anaphylaxis, 06/12/16) swollen face and lips NSAIDS (NON-STEROIDAL ANTI-INFLAMMA (Verified Allergy, Severe, Anaphylaxis , 06/12/16) swollen face and lips Uncoded Allergies: NSAIDS include Ibuprofen (Adverse Reaction, Severe, Anaphylaxis, 06/11/16) Swollen face and lip Objective Last 24 Hour Vital Signs Date Time Temp Pulse Resp B/P Pulse Ox O2 Delivery O2 Flow Rate FiO2 06/20/16 09:00 94 06/20/16 08:00 97.3 94 18 109/59 96 Room Air 06/20/16 07:11 81 18 Room Air 06/20/16 04:06 98.0 87 19 131/77 97 Room Air 06/20/16 00:00 98.1 81 19 130/70 98 Room Air 06/19/16 22:22 97.7 06/19/16 22:22 97.7 06/19/16 19:24 86 18 Room Air 06/19/16 19:00 97.7 80 20 140/90 98 Room Air 06/19/16 16:00 97.9 82 20 147/102 96 Room Air 06/19/16 12:15 97.7 83 21 112/70 99 Room Air Intake and Output 06/19/16 06/20/16 19:00 07:00 Intake Total 790 ml 480 ml Output Total 600 ml Balance 790 ml -120 ml Intake Oral 240 ml 480 ml IV Total 550 ml Output Urine Total 600 ml # Voids 4 Laboratory Tests 06/20/16 05:55: White Blood Count 4.7L, Red Blood Count 2.36L, Hemoglobin 8.5L, Hematocrit 27.4L , Mean Corpuscular Volume 116H, Mean Corpuscular Hemoglobin 36.0H, Mean Corpuscular Hemoglobin Concent 31.1L, Red Cell Distribution Width 20.3H, Platelet Count 573H, Mean Platelet Volume 4.4L, Neutrophils (%) (Auto) , Lymphocytes (%) (Auto) , Monocytes (%) (Auto) , Eosinophils (%) (Auto) , Basophils (%) (Auto) , Differential Total Cells Counted 100, Neutrophils % ( Manual) 69, Lymphocytes % (Manual) 20, Monocytes % (Manual) 6, Eosinophils % ( Manual) 5H, Basophils % (Manual) 0, Band Neutrophils 0, Platelet Estimate IncreasedH, Platelet Morphology Normal, Red Blood Cell Morphology Normal, Sodium Level 142, Potassium Level 3.6, Chloride Level 103, Carbon Dioxide Level 26, Anion Gap 13, Blood Urea Nitrogen 5L, Creatinine 0.6, Estimat Glomerular Filtration Rate > 60, Glucose Level 70L, Calcium Level 8.2L Height (Feet): 5 Height (Inches): 8.00 Weight (Pounds): 145 Neck: supple Respiratory/Chest: lungs clear Abdomen: soft Wiley Carrasco MD Jun 20, 2016 11:34
[2016-06-20] MEDS ORDERED: NS 275ml ONE (12:54)
[2016-06-20] MEDS ORDERED: Tubing IV Secondary IV ONE (12:54)
--- NOTE | 2016-06-21 14:10 | Cardiology Report ---
APPROVED REPORT EKG Measurement Heart [id number] Normal sinus rhythm Normal ECG
[2016-06-22] MEDS ORDERED: FOLIC ACID1 MG ORAL (08:13)
--- NOTE | 2016-06-22 08:14 | Discharge Summary ---
Discharge Summary Hospital Course Date of Admission Jun 10, 2016 at 11:39 Date of Discharge Jun 20, 2016 at 12:55 Admitting Diagnosis abdominal pain, tachy, sepsis tele HPI Alyssa Trevino is a 40 year old female who was admitted on Jun 10, 2016 at 11: 39 for Abdominal Pain,Tachy,Sepsis Hospital Course dc summary dictated # [id number] Discharge Medications New Medications: Folic Acid* (Folic Acid*) 1 Mg Tablet 1 MG ORAL DAILY, #30 TAB Continued Medications: Clindamycin HCl (Clindamycin HCl) 300 Mg Capsule 450 MG ORAL EVERY 8 HOURS for 10 Days, CAP Hydrocodone Bit/Acetaminophen 5-325* ([place] 5-325 Tablet*) 1 Each Tablet 1 TAB ORAL Q4H PRN for For Pain, TAB Levofloxacin* (Levaquin*) 500 Mg Tablet 500 MG ORAL DAILY for 10 Days, TAB Discharge Condition Upon Discharge: stable Discharge Disposition Patient was discharged to Home (01) Discharge Diagnoses: Jose (Maryacrmen)Juhi NP Jun 22, 2016 08:14
--- NOTE | 2016-06-22 22:48 | Discharge Summary 2 SIG ---
DATE OF ADMISSION: 06/10/2016 DATE OF DISCHARGE: 06/20/2016 The patient was admitted under Dr. Olvera. REASON FOR ADMISSION: 40-year-old female with a history of gastric sleeve surgery in the past, presented with increased vomiting and abdominal pain. She reported multiple vomiting episodes. She reported feeling weak and ill and as a result, - generalized weakness. She denied chest pain or shortness of breath. She denied neck pain or photophobia. She denied any loss of control of bowel or bladder function. She described abdominal pain as 8/10, sharp, diffuse, and nonradiating. Workup in the emergency room revealed no fever and no leukocytosis. Elevated lactic acid of 13.2. Lipase was 304. Urine tox screen was negative. Noted elevated AST and ALT, AST 90 and ALT 63. Serum alcohol level was 31. test negative. Anion gap 33. Electrolytes otherwise stable. Renal parameter were stable. Evidence of anemia with hemoglobin of 10.3 and hematocrit 32.3. No leukocytosis. Urinalysis with pyuria, positive for leukocyte esterase, negative for nitrate, few bacteria, and +2 ketones. The patient also complained of numbness and weakness in bilateral lower extremities, therefore, MRI of the L-spine and T-spine were done. MRI of the L-spine and T-spine did not show any acute pathology. Acidosis was concerning to ED doctor, without etiology at that time. CT of the abdomen and pelvis did not reveal any acute pathology. The patient was tachycardic with heart rate of 146. EKG showed sinus tachycardia with nonspecific ST and T-wave changes. The patient had an LP done in the emergency room. No meningismus signs noted. Chest x-ray was negative for any acute cardiopulmonary disease. Due to the concern of lower extremities weakness as well as the severe lactic acidosis, the patient was admitted. The patient was started on IV fluids and empiric antibiotics. ADMITTING DIAGNOSES: 1. Sepsis. 2. Urinary tract infection. 3. Lactic acidosis. 4. Elevated liver function tests. 5. Abdominal pain. HOSPITAL COURSE: The patient was admitted to the hospital. Neuro consult and ID consult initially were requested. Neurologist followed closely. The patient undergone MRI of the C-spine, T-spine, as well as L-spine, which did not reveal any acute pathology. Therefore, structural cord pathology had been excluded. The patient was mobilized and was working with physical and occupational therapists. Still has some weakness in the bilateral lower extremities per Neurology, but able to walk without difficulties. Per Neurology, the weakness possibly secondary to the viral syndrome and patient need to continue rehabilitation. GI seen the patient for the abdominal pain. CT of the abdomen and pelvis did not reveal any acute abdominal pathology. The patient obviously with evidence of alcoholic pancreatitis, elevated LFT, and elevated serum alcohol level, abdominal ultrasound showed hepatomegaly, no gall stones, and fatty liver. Alcoholic pancreatitis resolving. Hemoglobin and hematocrit were closely monitored. Lipase trending down. Anemia workup revealed low folic acid. Folic acid replacement provided and to be continued with periodic monitoring of folic acid level. Pain management provided. Tolerated regular diet. Hepatitis panel negative. HIV test negative. The patient was educated on alcohol cessation program (AA program) and educational materials provided. Pain specialist followed the patient for pain issue and adjusted analgesics as deemed appropriate. The patient was initially dehydrated. Recruiting Consultant followed, initially with IV fluids. Electrolyte replacement were done as needed. Renal parameter were stable. CT of the abdomen and pelvis with accidental finding of the ovarian cyst of 3.7 cm. Recommended outpatient transvaginal ultrasound and followup with GRAIN BLENDER as outpatient. Echocardiogram revealed preserved ejection fraction of 60% and right ventricular systolic pressure of 40 consistent with mild pulmonary hypertension. Pulse oximetry on room air was stable. No cardiac or pulmonary complaints. ID closely followed the patient. The patient initially on the IV antibiotics. Urine culture positive for E. coli. Blood culture negative. Per ID recommendation, the patient was discharged on oral antibiotic for additional 10 days. The patient also with evidence of candidal vaginitis on examination, status post fluconazole x1. Home Appliance Tech followed the patient as well. The patient, at some point, demonstrated pancytopenia with leukopenia likely secondary to sepsis and thrombocytopenia likely secondary to alcohol abuse, which resolved. Macrocytic anemia related to alcohol abuse as well as the folic acid deficiency. Folic acid was added to discharge medication. Abdominal pain, controlled. Plastic surgeon seen and evaluated the patient for right axillary hydradenitis The patient will need a surgery. Followup with the plastic surgeon as outpatient. All consultants cleared for discharge. DISCHARGE DIAGNOSES: 1. Sepsis. 2. Urinary tract infection. 3. Dehydration. 4. Alcoholic pancreatitis. 5. Intractable abdominal pain. 6. Elevated liver function tests. 7. Anemia. 8. Fatty liver disease. 9. Mild pulmonary hypertension. 10. Urinary tract infection. 11. Right axillary hydradenitis. 12. Lumbar degenerative disk disease. 13. Lumbar spondylosis. 14. Status post gastric sleeve surgery. 15. Alejandra vaginitis status post treatment. 16. Ovarian cyst. DISCHARGE MEDICATIONS: See medication reconciliation list. Antibiotics for additional 10 days as recommended by ID. DISCHARGE INSTRUCTIONS: The patient was discharged home. Followup with the plastic surgeon for surgery. Recommended to follow up with GRAIN BLENDER for transvaginal ultrasound due to the findings of ovarian cyst on the CT of the abdomen and pelvis. Also recommended to followup with the GI doctor for fatty liver management as outpatient. Franky Olvera D.O. Juhi PerezCentral Islip Psychiatric CenterSarahy N.Lanette DR: MICHELLE JOB#: [id number] CC: RONDA
== END 2016-06-20 12:55 | disposition home health service (06) | DRG 871 ==
LOC: EDBD 10:02 → EMR 10:55 → ICU 11:39 → EEVIPCON 11:39 → EDBEDREQ 12:15 → EDBEDREQSVC 12:17 → EDBEDREQ 12:32 → ICU 15:30 → 2W 06-11 15:02 → 2E 06-12 15:31 → 4E 06-14 14:23
DX: A41.9 Sepsis, unspecified organism (principal); K85.20 Alcohol induced acute pancreatitis without necrosis or infection; E43 Unspecified severe protein-calorie malnutrition; D61.818 Other pancytopenia; G82.20 Paraplegia, unspecified; I27.2 Other secondary pulmonary hypertension; K70.0 Alcoholic fatty liver; D69.6 Thrombocytopenia, unspecified; N39.0 Urinary tract infection, site not specified; E86.0 Dehydration; F10.129 Alcohol abuse with intoxication, unspecified; L73.2 Hidradenitis suppurativa; Z68.22 Body mass index [BMI] 22.0-22.9, adult; M51.36 Other intervertebral disc degeneration, lumbar region; M47.896 Other spondylosis, lumbar region; Z98.84 Bariatric surgery status; Z88.6 Allergy status to analgesic agent; R10.9 Unspecified abdominal pain; E87.6 Hypokalemia; D63.8 Anemia in other chronic diseases classified elsewhere; B96.20 Unspecified Escherichia coli [E. coli] as the cause of diseases classified elsewhere; B37.3 Candidiasis of vulva and vagina; N83.291 Other ovarian cyst, right side
CPT/HCPCS: 36415; 62270; 70553; 71010; 72148; 72156; 72157; 74177; 76700; 80048; 80053; 80202; 80300; 80329; 81001; 81003; 82150; 82248; 82550; 82607; 82728; 82746; 82962; 82977; 83036; 83090; 83540; 83550; 83605; 83690; 83735; 83921; 84100; 84439; 84443; 84550; 84702; 85007; 85025; 85044; 85060; 85610; 85730; 86140; 86703; 86705; 86709; 86803; 87040; 87081; 87086; 87181; 87340; 93005; 93306; 93970; 94664; 97803; A9585; J2250; J2405; J2765; J8499

== ENCOUNTER 2016-07-14 15:57 | Emergency (ER) | payer MEDICARE, OTHER ==
[~2016-07-14] VITALS: Ht 175.3 cm; Wt 100.2 kg
[~2016-07-14 15:57] MED LIST changes: +CLEOCIN150 MG ORAL; +FOLIC ACID1 MG ORAL; +LEVAQUIN500 MG ORAL; +NORCO 5-325 TA1 EAC1 ORAL
[2016-07-14 16:14] VITALS: BP 119/82
[2016-07-14] MEDS ORDERED: Morphine Sulfate 4mg/ml Inj IM ONE (16:45)
[2016-07-14] MEDS ORDERED: NORCO 5-325 TA1 EACH ORAL (16:46)
[2016-07-14] MEDS ORDERED: COLACE100 MG ORAL (17:19)
--- NOTE | 2016-07-14 17:23 | Emergency Room Report ---
History of Present Illness General Chief Complaint: Pain Source: Patient, EMS Present Illness HPI Vision presents with complaints of low back pain and sharp shooting pain to mainly the right leg However she has also had pain to the left leg at times Denies any fall or trauma Denies any fevers or chills Denies any loss of control of bowel urination Patient has had a fairly recent hospitalization with fairly extensive workup including MRIs multiple regions including T. and L-spine Patient reports that after being discharged here she was at [facility] and was given a walker Denies any other fevers or chills denies any dysuria frequency Allergies: Coded Allergies: IBUPROFEN (Verified Allergy, Severe, Anaphylaxis, 06/12/16) swollen face and lips NSAIDS (NON-STEROIDAL ANTI-INFLAMMA (Verified Allergy, Severe, Anaphylaxis , 06/12/16) swollen face and lips Uncoded Allergies: NSAIDS include Ibuprofen (Adverse Reaction, Severe, Anaphylaxis, 06/11/16) Swollen face and lip Patient History Past Medical History: see triage record Pertinent Family History: none Last Menstrual Period: 07/05/16 Now: No Reviewed Nursing Documentation: PMH: Agreed, PSxH: Agreed Nursing Documentation-PMH Past Medical History: No Stated History Hx Gastrointestinal Problems: Yes Hx Neurological Problems: Yes - hidradenitis Review of Systems All Other Systems: negative except mentioned in HPI Physical Exam Vital Signs Date Time Temp Pulse Resp B/P Pulse Ox O2 Delivery O2 Flow Rate FiO2 07/14/16 15:51 98.4 130 16 115/79 98 07/14/16 16:14 Room Air Sp02 EP Interpretation: reviewed, normal General Appearance: no apparent distress - However the patient appears mildly disheveled Head: normocephalic, atraumatic Eyes: bilateral eye EOMI, bilateral eye PERRL ENT: hearing grossly normal, normal pharynx, TMs + canals normal, uvula midline Neck: full range of motion, supple, no meningismus, no bony tend Respiratory: lungs clear, normal breath sounds, no rhonchi, no respiratory distress, no retraction, no accessory muscle use Cardiovascular #1: normal peripheral pulses, regular rate, rhythm, no edema, no gallop, no JVD, no murmur Gastrointestinal: normal bowel sounds, non tender, soft, no mass, no organomegaly, non-distended, no guarding, no hernia, no pulsatile mass, no rebound Genitourinary: no CVA tenderness Musculoskeletal: other - She has equal hotel maid in the upper extremity, patient moving both lower extremity without focal deficit, points subjectively to the posterior superior iliac crest region bilaterally for the discomfort, and sensation is intact Neurologic: oriented x3, responsive, fruit loader III-XII nml as tested, motor strength/ tone normal - Patient moving flexing extending both lower legs at the knees and feet area equally, sensory intact Psychiatric: mood/affect normal Skin: other - Appears disheveled with poor hygiene, Lymphatic: normal inspection, no adenopathy Medical Decision Making Diagnostic Impression: Primary Impression: back pain ER Course Patient has a fairly benign medical evaluation Patient reports that she was also recently at [facility] And had walkers provided At this time the patient's clinical evaluation does not reveal any acute pathology Patient is hemodynamically stable and appropriate for continued outpatient care Last Vital Signs Date Time Temp Pulse Resp B/P Pulse Ox O2 Delivery O2 Flow Rate FiO2 07/14/16 16:14 98.3 115 15 119/82 99 Room Air Status: improved Disposition: HOME, SELF-CARE Condition: Improved Scripts Docusate Sodium* (COLACE*) 100 Mg Capsule 100 MG ORAL THREE TIMES A DAY, #20 CAP Prov: MARTINA CREWS D.O. 07/14/16 Hydrocodone Bit/Acetaminophen 5-325* ([place] 5-325*) 1 Each Tablet 1 TAB ORAL Q6H Y for For Pain, #10 TAB 0 Refills Prov: MARTINA CREWS D.O. 07/14/16 Patient Instructions: Back Pain, Adult Additional Instructions: Patient is provided with the discharge instructions notified to follow up with primary doctor in the next 2-3 days otherwise return to the er with any worsening symptoms. Please note that this report is being documented using [employer] technology. This can lead to erroneous entry secondary to incorrect interpretation by the dictating instrument. MARTINA CREWS D.O. Jul 14, 2016 17:23
[2016-07-14 17:36] VITALS: BP 122/79
== END 2016-07-14 17:40 | disposition home or self-care (01) ==
LOC: EDBD 15:57 → EMR 17:40
DX: M54.5 Low back pain (principal); L73.2 Hidradenitis suppurativa; Z88.6 Allergy status to analgesic agent
CPT/HCPCS: 96372; 99284; J2270

== ENCOUNTER 2016-12-14 14:18 | Inpatient (IN) | payer MEDICARE, OTHER ==
[~2016-12-14] VITALS: Ht 167.6 cm; Wt 98.4 kg
[~2016-12-14 14:18] MED LIST changes: +COLACE100 MG ORAL; +NORCO 5-325 TA1 EACH ORAL
--- NOTE | 2016-12-14 15:52 | Emergency Room Report ---
History of Present Illness General Chief Complaint: Generalized Weakness Source: EMS (Oksana Parker P.A.) Source: Patient (Alex Fenton) Present Illness HPI Patient is a 41-year-old female presented after increased shortness of breath as well as chest pain. Patient gradual onset of symptoms. Patient prior history of alcohol abuse. Patient recently have been drinking heavily for the past 2 days. Patient noted to have a prior history of hidradenitis . (Alex Fenton) Allergies: Coded Allergies: IBUPROFEN (Verified Allergy, Severe, Anaphylaxis, 06/12/16) swollen face and lips NSAIDS (NON-STEROIDAL ANTI-INFLAMMA (Verified Allergy, Severe, Anaphylaxis , 06/12/16) swollen face and lips Uncoded Allergies: NSAIDS include Ibuprofen (Adverse Reaction, Severe, Anaphylaxis, 06/11/16) Swollen face and lip Patient History Last Menstrual Period: UNK (Oksana Parker P.Chanda) Reviewed Nursing Documentation: PMH: Agreed, PSxH: Agreed (Alex Fenton) Nursing Documentation-PMH Hx Cardiac Problems: No - HYDRODENITIS, SUBSTANCE ABUSE Hx Gastrointestinal Problems: Yes Hx Neurological Problems: Yes - hidradenitis (Oksana Parker P.A.) Physical Exam Vital Signs Date Time Temp Pulse Resp B/P Pulse Ox O2 Delivery O2 Flow Rate FiO2 12/14/16 14:19 99.3 103 16 152/89 98 Room Air (Oksana Parker P.A.) General Appearance: alert, GCS 15, severe distress ENT: hearing grossly normal Neck: full range of motion Respiratory: wheezing Cardiovascular #1: tachycardia Gastrointestinal: normal inspection, soft Musculoskeletal: swelling - axillary erythema and discharge, right greater than left Neurologic: alert, oriented x3, responsive Skin: pallor (Alex Fenton) Procedures Critical Care Time Critical Care Time Patient had a critical medical condition which untreated could potentially result in life or limb threatening injury. Total critical care time excluding procedures approximately 45 minutes. (Alex Fenton) Medical Decision Making Diagnostic Impression: Primary Impression: Metabolic acidosis Additional Impressions: Hydradenitis Sepsis UTI (urinary tract infection) ER Course Patient presented for shortness of breath.Differential included but was not limited to anemia, pneumonia, pneumothorax, myocardial infarction, pericardial effusion, congestive heart failure, acidosis. Because of complexity of patient' s case laboratory testing and imaging studies were ordered. The patient noted to have acidosis. Patient was noted to have a markedly elevated lactic acid level. the patient has several possible areas of infection which include urinary tract infection and as well as hidradenitis infections the axillary area. The patient given IV fluids.A urinalysis showed evidence of urinary tract infection. The patient was given IV Ativan for possible alcoholic for altered she started on IV antibiotics. She was noted to have metabolic acidosis and had respiratory compensation.Dr. Franky Olvera was contacted for inpatient management Labs Test 12/14/16 15:50 12/14/16 17:43 12/14/16 17:45 12/14/16 18:35 White Blood Count 8.5 K/UL (4.8-10.8) Red Blood Count 2.89 M/UL (4.20-5.40) Hemoglobin 11.6 G/DL (12.0-16.0) Hematocrit 35.0 % (37.0-47.0) Mean Corpuscular Volume 121 FL (80-99) Mean Corpuscular Hemoglobin 40.1 PG (27.0-31.0) Mean Corpuscular Hemoglobin Concent 33.2 G/DL (32.0-36.0) Red Cell Distribution Width 16.2 % (11.6-14.8) Platelet Count 322 K/UL (150-450) Mean Platelet Volume 5.3 FL (6.5-10.1) Neutrophils (%) (Auto) 77.3 % (45.0-75.0) Lymphocytes (%) (Auto) 11.9 % (20.0-45.0) Monocytes (%) (Auto) 10.2 % (1.0-10.0) Eosinophils (%) (Auto) 0.0 % (0.0-3.0) Basophils (%) (Auto) 0.5 % (0.0-2.0) Urine Color Brown Urine Appearance Very cloudy Urine pH 5 (4.5-8.0) Urine Specific [place] 1.020 (1.005-1.035) Urine Protein 4+ (NEGATIVE) Urine Glucose (UA) Negative (NEGATIVE) Urine Ketones 2+ (NEGATIVE) Urine Occult Blood 5+ (NEGATIVE) Urine Nitrite Positive (NEGATIVE) Urine Bilirubin 1+ (NEGATIVE) Urine Ictotest Positive Urine Urobilinogen 8 MG/DL (0.0-1.0) Urine Leukocyte Esterase 3+ (NEGATIVE) Urine RBC Tntc /HPF (0 - 2) Urine WBC Tntc /HPF (0 - 2) Urine Squamous Epithelial Cells Few /LPF (NONE/OCC) Urine Bacteria Many /HPF (NONE) Sodium Level 122 mEQ/L (135-145) Potassium Level 5.8 mEQ/L (3.4-4.9) Chloride Level 77 mEQ/L (98-107) Carbon Dioxide Level 9 mEQ/L (20-30) Anion Gap 36 (5-15) Blood Urea Nitrogen 25 mg/dL (7-23) Creatinine 1.9 mg/dL (0.5-0.9) Estimat Glomerular Filtration Rate 35.8 mL/min (>60) Glucose Level 65 mg/dL (74-106) Lactic Acid Level 13.30 mmol/L (0.66-2.22) Calcium Level 11.8 mg/dL (8.6-10.2) Total Bilirubin 2.2 mg/dL (0.0-1.2) Direct Bilirubin 1.3 mg/dL (0.1-0.3) Aspartate Amino Transf (AST/SGOT) 321 U/L (5-40) Alanine Aminotransferase (ALT/SGPT) 152 U/L (3-33) Alkaline Phosphatase 151 U/L (35-104) Total Creatine Kinase 102 U/L (26-140) Creatine Kinase MB < 1.5 ng/mL (< 3.8) Creatine Kinase MB Relative Index Troponin I < 0.30 ng/mL (<=0.30) Total Protein 8.1 g/dL (6.6-8.7) Albumin 3.6 g/dL (3.5-5.2) Globulin 4.5 g/dL Albumin/Globulin Ratio 0.8 (1.0-2.7) Serum Alcohol < 10 mg/dL Arterial Blood pH 7.337 (7.350-7.450) Arterial Blood Partial Pressure CO2 11.5 mmHg (35.0-45.0) Arterial Blood Partial Pressure O2 133.3 mmHg (75.0-100.0) Arterial Blood HCO3 6.0 mmol/L (22.0-26.0) Arterial Blood Oxygen Saturation 98.4 % (92.0-98.0) Arterial Blood Base Excess -17.2 Jose Enrique Test Positive (Alex Fenton) EKG Diagnostic Results Rate: normal Rhythm: NSR, other - peaked t waves ST Segments: no acute changes (Alex Fenton) Rhythm Strip Diag. Results EP Interpretation: yes Rhythm: NSR, no PVC's (Alex Fenton) Last Vital Signs Date Time Temp Pulse Resp B/P Pulse Ox O2 Delivery O2 Flow Rate FiO2 12/14/16 14:19 99.3 103 16 152/89 98 Room Air (Oksana Parker) Status: unchanged (Alex Fenton) Disposition: ADMITTED INPATIENT Condition: Serious Oksana Parker Dec 14, 2016 15:52 Alex Fenton Dec 14, 2016 19:20
[2016-12-14] MEDS ORDERED: Ampicillin/Sulbactam Sod 3 GM in NS 110 ML IVPB ONE (16:15)
[2016-12-14] MEDS ORDERED: Unasyn 3gm Inj ONE (16:40)
[2016-12-14 16:48] LABS: MEAN CORPUSCULAR HEMOGLOBIN 40.1 PG (27.0-31.0); MEAN CORPUSCULAR HGB CONC 33.2 G/DL (32.0-36.0); MEAN CORPUSCULAR VOLUME 121 FL (80-99); MEAN PLATELET VOLUME 5.3 FL (6.5-10.1); PLATELET COUNT 322 K/UL (150-450); RED BLOOD COUNT 2.89 M/UL (4.20-5.40); RED CELL DISTRIBUTION WIDTH 16.2 % (11.6-14.8); WHITE BLOOD COUNT 8.5 K/UL (4.8-10.8)
[2016-12-14 16:50] LABS: BASOPHILS % (AUTO) 0.5 % (0.0-2.0); LYMPHOCYTES % (AUTO) 11.9 % (20.0-45.0); MONOCYTES % (AUTO) 10.2 % (1.0-10.0); NEUTROPHILS % (AUTO) 77.3 % (45.0-75.0)
[2016-12-14 16:59] LABS: APPEARANCE,URINE VERY CLOUDY; KETONES,URINE 2+ (NEGATIVE); LEUKOCYTE ESTERASE ,URINE 3+ (NEGATIVE); NITRITE,URINE POSITIVE (NEGATIVE); PH,URINE 5 (4.5-8.0); PROTEIN,URINE 4+ (NEGATIVE); UROBILINOGEN,URINE 8 MG/DL (0.0-1.0)
[2016-12-14 17:00] VITALS: BP 148/72
[2016-12-14 17:01] LABS: BACTERIA,URINE MANY /HPF; RBC,URINE TNTC /HPF (0 - 2); SQUAMOUS EPITHELIAL CELL,UR FEW /LPF (NONE/OCC); WBC,URINE TNTC /HPF (0 - 2)
[2016-12-14 17:07] LABS: ICTOTEST POSITIVE
[2016-12-14] MEDS ORDERED: Glucagon 1mg Inj IV ONE (17:30)
[2016-12-14 17:55] VITALS: BP 184/126
[2016-12-14] MEDS ORDERED: D5 1/2NS w/KCl 20mEq 1,000 ML IV SCH (18:00)
[2016-12-14 18:14] LABS: ALANINE AMINOTRANSFERASE 152 U/L (3-33); ALBUMIN/GLOBULIN RATIO 0.8 (1.0-2.7); ASPARTATE AMINO TRANSFERASE 321 U/L (5-40); CALCIUM 11.8 mg/dL (8.6-10.2); CHLORIDE 77 mEQ/L (98-107); CREATININE 1.9 mg/dL (0.5-0.9); GLOMERULAR FILTRATION RATE 35.8 mL/min (>60); HEMOLYSIS 3; POTASSIUM 5.8 mEQ/L (3.4-4.9); SODIUM 122 mEQ/L (135-145); TOTAL PROTEIN 8.1 g/dL (6.6-8.7)
[2016-12-14 18:17] LABS: REFLEX LACTIC ACID YES OR NO YES
[2016-12-14 18:18] LABS: TROPONIN I < 0.30 ng/mL (<=0.30)
[2016-12-14 18:25] LABS: CKMB < 1.5 ng/mL (< 3.8)
[2016-12-14 18:33] LABS: ANION GAP 36 (5-15); CARBON DIOXIDE 9 mEQ/L (20-30)
[2016-12-14 18:50] LABS: ABG PCO2 11.5 mmHg (35.0-45.0)
[2016-12-14 18:51] LABS: ABG ALLEN TEST POSITIVE; ABG BASE EXCESS -17.2
[2016-12-14 18:54] LABS: BILIRUBIN,DIRECT 1.3 mg/dL (0.1-0.3)
[2016-12-14] MEDS ORDERED: LORazepam Inj 2mg/ml 1ml IV ONE (19:15)
[2016-12-14 19:25] VITALS: BP 174/118
[2016-12-14] MEDS ORDERED: chlordiazePOXIDE 25mg Cap ORAL PRN (19:45)
[2016-12-14] MEDS ORDERED: LORazepam Inj 2mg/ml 1ml IV PRN (19:45)
[2016-12-14] MEDS ORDERED: Miralax 17gm pkt ORAL PRN (19:45)
[2016-12-14] MEDS ORDERED: Mylanta II UD 30ml ORAL PRN (19:45)
[2016-12-14] MEDS ORDERED: Zolpidem 5mg tab ORAL PRN (19:45)
--- NOTE | 2016-12-14 20:16 | Consultation ---
History of Present Illness General Date patient seen: Dec 14, 2016 Chief Complaint: Generalized Weakness Present Illness HPI 41 year old brought in by paramedics f/o increasing abdominal pain, She was also c/o pain in axillary region. She stated that she has not been eating and instead binging on alcohol. She was was to be severely acidotic with increased lactic acidosis and lipase. Allergies: Coded Allergies: IBUPROFEN (Verified Allergy, Severe, Anaphylaxis, 06/12/16) swollen face and lips NSAIDS (NON-STEROIDAL ANTI-INFLAMMA (Verified Allergy, Severe, Anaphylaxis , 06/12/16) swollen face and lips Uncoded Allergies: NSAIDS include Ibuprofen (Adverse Reaction, Severe, Anaphylaxis, 06/11/16) Swollen face and lip Medication History Scheduled Clindamycin HCl (Clindamycin HCl), 450 MG ORAL EVERY 8 HOURS, (Reported) Docusate Sodium* (Colace*), 100 MG ORAL THREE TIMES A DAY Folic Acid* (Folic Acid*), 1 MG ORAL DAILY Levofloxacin* (Levaquin*), 500 MG ORAL DAILY, (Reported) No Known Medications* (NKM - No Known Medications*), 0 ., (Reported) Scheduled PRN Hydrocodone Bit/Acetaminophen 5-325* ([place] 5-325 Tablet*), 1 TAB ORAL Q4H PRN for For Pain, (Reported) Hydrocodone Bit/Acetaminophen 5-325* ([place] 5-325*), 1 TAB ORAL Q6H PRN for For Pain Patient History Healthcare decision maker Resuscitation status Advanced Directive on File Past Medical/Surgical History Past Medical/Surgical History: (1) Alcoholic pancreatitis (2) Anxiety Review of Systems Constitutional: Reports: malaise, weakness Gastrointestinal: Reports: abdominal pain Skin: Reports: rash All Other Systems: negative except mentioned in HPI Physical Exam General Appearance: WD/WN Lines, tubes and drains: peripheral HEENT: normocephalic, anicteric Neck: non-tender, normal alignment Respiratory/Chest: chest wall non-tender, lungs clear Cardiovascular/Chest: normal peripheral pulses, normal rate Abdomen: tender Extremities: normal range of motion, non-tender Skin Exam: rash - abdomen skin fold Last 24 Hour Vital Signs Date Time Temp Pulse Resp B/P Pulse Ox O2 Delivery O2 Flow Rate FiO2 12/14/16 18:27 192/122 12/14/16 17:55 96.8 112 28 184/126 100 Room Air 12/14/16 17:00 99.0 106 22 148/72 99 Room Air 12/14/16 14:19 99.3 103 16 152/89 98 Room Air Laboratory Tests Test 12/14/16 15:50 12/14/16 17:43 12/14/16 17:45 12/14/16 18:35 White Blood Count 8.5 K/UL (4.8-10.8) Red Blood Count 2.89 M/UL (4.20-5.40) L Hemoglobin 11.6 G/DL (12.0-16.0) L Hematocrit 35.0 % (37.0-47.0) L Mean Corpuscular Volume 121 FL (80-99) H Mean Corpuscular Hemoglobin 40.1 PG (27.0-31.0) H Mean Corpuscular Hemoglobin Concent 33.2 G/DL (32.0-36.0) Red Cell Distribution Width 16.2 % (11.6-14.8) H Platelet Count 322 K/UL (150-450) Mean Platelet Volume 5.3 FL (6.5-10.1) L Neutrophils (%) (Auto) 77.3 % (45.0-75.0) H Lymphocytes (%) (Auto) 11.9 % (20.0-45.0) L Monocytes (%) (Auto) 10.2 % (1.0-10.0) H Eosinophils (%) (Auto) 0.0 % (0.0-3.0) Basophils (%) (Auto) 0.5 % (0.0-2.0) Urine Color Brown Urine Appearance Very cloudy Urine pH 5 (4.5-8.0) Urine Specific [place] 1.020 (1.005-1.035) Urine Protein 4+ (NEGATIVE) H Urine Glucose (UA) Negative (NEGATIVE) Urine Ketones 2+ (NEGATIVE) H Urine Occult Blood 5+ (NEGATIVE) H Urine Nitrite Positive (NEGATIVE) H Urine Bilirubin 1+ (NEGATIVE) H Urine Ictotest Positive Urine Urobilinogen 8 MG/DL (0.0-1.0) H Urine Leukocyte Esterase 3+ (NEGATIVE) H Urine RBC Tntc /HPF (0 - 2) H Urine WBC Tntc /HPF (0 - 2) H Urine Squamous Epithelial Cells Few /LPF (NONE/OCC) Urine Bacteria Many /HPF (NONE) H Sodium Level 122 mEQ/L (135-145) L Potassium Level 5.8 mEQ/L (3.4-4.9) H Chloride Level 77 mEQ/L (98-107) L Carbon Dioxide Level 9 mEQ/L (20-30) *L Anion Gap 36 (5-15) H Blood Urea Nitrogen 25 mg/dL (7-23) H Creatinine 1.9 mg/dL (0.5-0.9) H Estimat Glomerular Filtration Rate 35.8 mL/min (>60) Glucose Level 65 mg/dL (74-106) L Lactic Acid Level 13.30 mmol/L (0.66-2.22) H Calcium Level 11.8 mg/dL (8.6-10.2) H Total Bilirubin 2.2 mg/dL (0.0-1.2) H Direct Bilirubin 1.3 mg/dL (0.1-0.3) H Aspartate Amino Transf (AST/SGOT) 321 U/L (5-40) H Alanine Aminotransferase (ALT/SGPT) 152 U/L (3-33) H Alkaline Phosphatase 151 U/L (35-104) H Total Creatine Kinase 102 U/L (26-140) Creatine Kinase MB < 1.5 ng/mL (< 3.8) Creatine Kinase MB Relative Index Troponin I < 0.30 ng/mL (<=0.30) Total Protein 8.1 g/dL (6.6-8.7) Albumin 3.6 g/dL (3.5-5.2) Globulin 4.5 g/dL Albumin/Globulin Ratio 0.8 (1.0-2.7) L Serum Alcohol Pending Arterial Blood pH 7.337 (7.350-7.450) Arterial Blood Partial Pressure CO2 11.5 mmHg (35.0-45.0) *L Arterial Blood Partial Pressure O2 133.3 mmHg (75.0-100.0) H Arterial Blood HCO3 6.0 mmol/L (22.0-26.0) L Arterial Blood Oxygen Saturation 98.4 % (92.0-98.0) H Arterial Blood Base Excess -17.2 Jose Enrique Test Positive Height (Feet): 5 Height (Inches): 7.00 Weight (Pounds): 190 Medications Current Medications Medications (Trade) Dose Ordered Sig/Payam Route PRN Reason Start Time Stop Time Status Last Admin Dose Admin Acetaminophen (Tylenol) 650 mg Q4H PRN ORAL fever 12/14/16 19:45 01/13/17 19:44 Al Hydroxide/Mg Hydroxide (Mylanta II) 30 ml Q6H PRN ORAL dyspepsia 12/14/16 19:45 01/13/17 19:44 Chlordiazepoxide (Librium) 25 mg Q6H PRN ORAL Agitation 12/14/16 19:45 12/21/16 19:44 Dextrose STAT PRN IV Hypoglycemia 12/14/16 19:45 01/13/17 19:44 Heparin Sodium (Porcine) (Heparin 5000 units/ml) 5,000 units EVERY 12 HOURS SUBQ 12/14/16 21:00 01/13/17 20:59 UNV Lorazepam (Ativan 2mg/ml 1ml) 2 mg Q1H PRN IV seizures 12/14/16 19:45 12/21/16 19:44 Morphine Sulfate (Morphine Sulfate) 1 mg Q4H PRN IVP For Pain 4-10 12/14/16 19:45 12/21/16 19:44 Ondansetron HCl (Zofran) 4 mg Q6H PRN IVP Nausea & Vomiting 12/14/16 19:45 01/13/17 19:44 Polyethylene Glycol (Miralax) 17 gm HSPRN PRN ORAL Constipation 12/14/16 19:45 01/13/17 19:44 Thiamine HCl/ Folic Acid/ Magnesium Sulfate/ Multivitamins/ Sodium Chloride (Vitamin B1/ Folvite/Magnesium Sulfate/M.v.i.-12/ NS w/KCl 20mEq) 1,015.2 ml @ 125 mls/ hr Q24H IV 12/14/16 19:45 01/13/17 19:44 UNV Zolpidem Tartrate (Ambien) 5 mg HSPRN PRN ORAL Insomnia 12/14/16 19:45 01/13/17 19:44 Assessment/Plan Problem List: (1) Metabolic acidosis ICD Codes: E87.2 - Acidosis SNOMED: 28135487 (2) Hyponatremia ICD Codes: E87.1 - Hypo-osmolality and hyponatremia SNOMED: 56894020 (3) Alcoholic pancreatitis ICD Codes: K85.20 - Alcohol induced acute pancreatitis without necrosis or infection SNOMED: 701855491 (4) Cellulitis (5) Hydradenitis ICD Codes: L73.2 - Hidradenitis suppurativa SNOMED: 39034752 (6) Anxiety ICD Codes: F41.9 - Anxiety disorder, unspecified SNOMED: 72738730 Assessment/Plan npo IV hydration symptomatic treatment abx for cellulitis of skin folds dvt porphylaxis hyponatremia w/u dvt prophylaxis DAVID CLARKE Dec 14, 2016 20:16
[2016-12-14 21:30] VITALS: BP 174/118
--- NOTE | 2016-12-14 22:43 | Infectious Diseases Prog Note ---
Assessment/Plan Problems: (1) UTI (urinary tract infection) Assessment & Plan: will send urine culture and start cefepime empirically (2) Sepsis Assessment & Plan: will send blood culture and start cefepime with clindamycin (3) Acute pancreatitis Assessment & Plan: due too alcohol abuse, continue hydration, and paian management, keep npo, monitor lipase (4) Hidradenitis suppurativa Assessment & Plan: will start cefepime and clindamycin , consult wound care Subjective Allergies: Coded Allergies: IBUPROFEN (Verified Allergy, Severe, Anaphylaxis, 06/12/16) swollen face and lips NSAIDS (NON-STEROIDAL ANTI-INFLAMMA (Verified Allergy, Severe, Anaphylaxis , 06/12/16) swollen face and lips Uncoded Allergies: NSAIDS include Ibuprofen (Adverse Reaction, Severe, Anaphylaxis, 06/11/16) Swollen face and lip Objective Vital Signs Last 24 Hour Vital Signs Date Time Temp Pulse Resp B/P Pulse Ox O2 Delivery O2 Flow Rate FiO2 12/14/16 18:27 192/122 12/14/16 17:55 96.8 112 28 184/126 100 Room Air 12/14/16 17:00 99.0 106 22 148/72 99 Room Air 12/14/16 14:19 99.3 103 16 152/89 98 Room Air Height (Feet): 5 Height (Inches): 7.00 Weight (Pounds): 190 Laboratory Tests Test 12/14/16 15:50 12/14/16 17:43 12/14/16 17:45 12/14/16 18:35 White Blood Count 8.5 K/UL (4.8-10.8) Red Blood Count 2.89 M/UL (4.20-5.40) L Hemoglobin 11.6 G/DL (12.0-16.0) L Hematocrit 35.0 % (37.0-47.0) L Mean Corpuscular Volume 121 FL (80-99) H Mean Corpuscular Hemoglobin 40.1 PG (27.0-31.0) H Mean Corpuscular Hemoglobin Concent 33.2 G/DL (32.0-36.0) Red Cell Distribution Width 16.2 % (11.6-14.8) H Platelet Count 322 K/UL (150-450) Mean Platelet Volume 5.3 FL (6.5-10.1) L Neutrophils (%) (Auto) 77.3 % (45.0-75.0) H Lymphocytes (%) (Auto) 11.9 % (20.0-45.0) L Monocytes (%) (Auto) 10.2 % (1.0-10.0) H Eosinophils (%) (Auto) 0.0 % (0.0-3.0) Basophils (%) (Auto) 0.5 % (0.0-2.0) Urine Color Brown Urine Appearance Very cloudy Urine pH 5 (4.5-8.0) Urine Specific [place] 1.020 (1.005-1.035) Urine Protein 4+ (NEGATIVE) H Urine Glucose (UA) Negative (NEGATIVE) Urine Ketones 2+ (NEGATIVE) H Urine Occult Blood 5+ (NEGATIVE) H Urine Nitrite Positive (NEGATIVE) H Urine Bilirubin 1+ (NEGATIVE) H Urine Ictotest Positive Urine Urobilinogen 8 MG/DL (0.0-1.0) H Urine Leukocyte Esterase 3+ (NEGATIVE) H Urine RBC Tntc /HPF (0 - 2) H Urine WBC Tntc /HPF (0 - 2) H Urine Squamous Epithelial Cells Few /LPF (NONE/OCC) Urine Bacteria Many /HPF (NONE) H Sodium Level 122 mEQ/L (135-145) L Potassium Level 5.8 mEQ/L (3.4-4.9) H Chloride Level 77 mEQ/L (98-107) L Carbon Dioxide Level 9 mEQ/L (20-30) *L Anion Gap 36 (5-15) H Blood Urea Nitrogen 25 mg/dL (7-23) H Creatinine 1.9 mg/dL (0.5-0.9) H Estimat Glomerular Filtration Rate 35.8 mL/min (>60) Glucose Level 65 mg/dL (74-106) L Lactic Acid Level 13.30 mmol/L (0.66-2.22) H Calcium Level 11.8 mg/dL (8.6-10.2) H Total Bilirubin 2.2 mg/dL (0.0-1.2) H Direct Bilirubin 1.3 mg/dL (0.1-0.3) H Aspartate Amino Transf (AST/SGOT) 321 U/L (5-40) H Alanine Aminotransferase (ALT/SGPT) 152 U/L (3-33) H Alkaline Phosphatase 151 U/L (35-104) H Total Creatine Kinase 102 U/L (26-140) Creatine Kinase MB < 1.5 ng/mL (< 3.8) Creatine Kinase MB Relative Index Troponin I < 0.30 ng/mL (<=0.30) Total Protein 8.1 g/dL (6.6-8.7) Albumin 3.6 g/dL (3.5-5.2) Globulin 4.5 g/dL Albumin/Globulin Ratio 0.8 (1.0-2.7) L Serum Alcohol < 10 mg/dL Arterial Blood pH 7.337 (7.350-7.450) Arterial Blood Partial Pressure CO2 11.5 mmHg (35.0-45.0) *L Arterial Blood Partial Pressure O2 133.3 mmHg (75.0-100.0) H Arterial Blood HCO3 6.0 mmol/L (22.0-26.0) L Arterial Blood Oxygen Saturation 98.4 % (92.0-98.0) H Arterial Blood Base Excess -17.2 Jose Enrique Test Positive Test 12/14/16 21:30 Lactic Acid Level 12.80 mmol/L (0.66-2.22) H Lipase 1939 U/L (< 60) H Salicylates Level < 1 mg/dL (10-30) L Serum Alcohol < 10 mg/dL Current Medications Medications (Trade) Dose Ordered Sig/Payam Route PRN Reason Start Time Stop Time Status Last Admin Dose Admin Acetaminophen (Tylenol) 650 mg Q4H PRN ORAL fever 12/14/16 19:45 01/13/17 19:44 Al Hydroxide/Mg Hydroxide (Mylanta II) 30 ml Q6H PRN ORAL dyspepsia 12/14/16 19:45 01/13/17 19:44 Chlordiazepoxide 25 mg 25 mg Q6H PRN ORAL Agitation 12/14/16 19:45 12/21/16 19:44 Dextrose STAT PRN IV Hypoglycemia 12/14/16 19:45 01/13/17 19:44 Folic Acid/ Magnesium Sulfate/ Multivitamins/ Sodium Chloride (Folvite/ Magnesium Sulfate/ M.v.i.-12/Sodium Chloride 1000ml bag) 1,014.2 ml @ 124.876 mls/hr Q24H IV 12/14/16 23:00 01/13/17 22:59 Heparin Sodium (Porcine) (Heparin 5000 units/ml) 5,000 units EVERY 12 HOURS SUBQ 12/14/16 21:00 01/13/17 20:59 Lorazepam (Ativan 2mg/ml 1ml) 2 mg Q1H PRN IV seizures 12/14/16 19:45 12/21/16 19:44 Morphine Sulfate (Morphine Sulfate) 1 mg Q4H PRN IVP For Pain 4-10 12/14/16 19:45 12/21/16 19:44 Ondansetron HCl (Zofran) 4 mg Q6H PRN IVP Nausea & Vomiting 12/14/16 19:45 01/13/17 19:44 Polyethylene Glycol (Miralax) 17 gm HSPRN PRN ORAL Constipation 12/14/16 19:45 01/13/17 19:44 Thiamine HCl/ Dextrose (Vitamin B1/D5W) 56 ml @ 112 mls/hr Q24H IVPB 12/14/16 23:00 01/13/17 22:59 Zolpidem Tartrate (Ambien) 5 mg HSPRN PRN ORAL Insomnia 12/14/16 19:45 01/13/17 19:44 Brandan Rubin M.D. Dec 14, 2016 22:43
[2016-12-14] MEDS ORDERED: Thiamine 100mg in D5W 55ml IVPB SCH (23:00)
[2016-12-14] MEDS ORDERED: Clindamycin 600mg 50 ML IVPB SCH (23:00)
[2016-12-14] MEDS ORDERED: Folic Acid 1 MG, Magnesium Sulfate 2,000 MG, Multivitamin - 12 Injection 10 ML in NS 10... IV SCH (23:00)
[2016-12-14] MEDS: Morphine Sulfate 2mg/ml Inj IVP PRN (23:10)
[2016-12-14] MEDS ORDERED: NS 1000ml 2,600 ML IVLG ONE (23:15)
[2016-12-14 23:25] VITALS: BP 115/80
[2016-12-15 01:00] VITALS: BP 121/90
[2016-12-15] MEDS ORDERED: Cefepime 1gm vial ONE (02:51)
[2016-12-15] MEDS ORDERED: Cefepime HCl 1 GM in D5W 55 ML IVPB SCH ×3 (03:00)
[2016-12-15] MEDS: Morphine Sulfate 2mg/ml Inj IVP PRN ×5 (03:54→22:14)
[2016-12-15] MEDS: Heparin 5000 units/ml inj SUBQ SCH ×3 (03:57→22:24)
[2016-12-15] MEDS: Clindamycin 600mg 50 ML IV SCH ×3 (04:47→21:00)
[2016-12-15 07:51] VITALS: BP 118/70
[2016-12-15 10:23] LABS: MEAN CORPUSCULAR HEMOGLOBIN 39.7 PG (27.0-31.0); MEAN CORPUSCULAR VOLUME 120 FL (80-99); MEAN PLATELET VOLUME 5.2 FL (6.5-10.1); PLATELET COUNT 279 K/UL (150-450); RED BLOOD COUNT 2.76 M/UL (4.20-5.40); WHITE BLOOD COUNT 6.1 K/UL (4.8-10.8)
[2016-12-15 10:49] LABS: ALBUMIN/GLOBULIN RATIO 0.7 (1.0-2.7); CREATININE 1.4 mg/dL (0.5-0.9); GLOMERULAR FILTRATION RATE 50.7 mL/min (>60); POTASSIUM 4.4 mEQ/L (3.4-4.9); TOTAL PROTEIN 6.8 g/dL (6.6-8.7)
[2016-12-15 11:08] LABS: BILIRUBIN,DIRECT 1.4 mg/dL (0.1-0.3)
[2016-12-15 11:19] LABS: BAND NEUTROPHILS % (MANUAL) 10 % (0-8); LYMPHOCYTES % (MANUAL) 11 % (20-45); NEUTROPHILS % (MANUAL) 71 % (45-75); TOTAL CELLS COUNTED 100
[2016-12-15 11:20] LABS: ANISOCYTOSIS 1+; BASOPHILS % (MANUAL) 0 % (0-2); EOSINOPHILS % (MANUAL) 0 % (0-3); HYPOCHROMASIA 1+; MACROCYTES 1+; PLATELET ESTIMATE ADEQUATE; PLATELET MORPHOLOGY NORMAL
[2016-12-15 11:24] LABS: NUCLEATED RED BLOOD CELLS 4 /100 WBC
[2016-12-15] MEDS ORDERED: D5NS 1,000 ML IV SCH (11:45)
--- NOTE | 2016-12-15 11:46 | Pulmonology Progress Note ---
Assessment/Plan Problems: (1) Metabolic acidosis (2) Hyponatremia (3) Alcoholic pancreatitis (4) Cellulitis (5) Hydradenitis (6) Anxiety Assessment/Plan npo IV hydration, D5 NS at 100 symptomatic treatment abx for cellulitis of skin folds dvt porphylaxis hyponatremia w/u librium prn telemetry renal evaluation dvt prophylaxis Subjective ROS Limited/Unobtainable: No HEENT: Repors: no symptoms Respiratory: Reports: no symptoms Cardiovascular: Reports: no symptoms Allergies: Coded Allergies: IBUPROFEN (Verified Allergy, Severe, Anaphylaxis, 06/12/16) swollen face and lips NSAIDS (NON-STEROIDAL ANTI-INFLAMMA (Verified Allergy, Severe, Anaphylaxis , 06/12/16) swollen face and lips Uncoded Allergies: NSAIDS include Ibuprofen (Adverse Reaction, Severe, Anaphylaxis, 06/11/16) Swollen face and lip Objective Last 24 Hour Vital Signs Date Time Temp Pulse Resp B/P Pulse Ox O2 Delivery O2 Flow Rate FiO2 12/15/16 08:31 107 12/15/16 08:30 97.5 12/15/16 07:51 97.5 108 18 118/70 100 Room Air 12/15/16 04:00 110 12/15/16 01:00 98.2 107 29 121/90 100 Room Air 12/15/16 01:00 98.2 107 29 121/90 100 Room Air 12/14/16 23:25 98.4 107 32 115/80 100 Room Air 12/14/16 21:30 97.9 119 33 174/118 100 Room Air 12/14/16 19:25 97.2 117 32 174/118 100 Room Air 12/14/16 18:27 192/122 12/14/16 17:55 96.8 112 28 184/126 100 Room Air 12/14/16 17:00 99.0 106 22 148/72 99 Room Air 12/14/16 14:19 99.3 103 16 152/89 98 Room Air Intake and Output 12/14/16 12/15/16 19:00 07:00 Intake Total 1120 ml 500 ml Balance 1120 ml 500 ml Intake Oral 500 ml IV Total 1120 ml # Voids 1 1 General Appearance: WD/WN HEENT: normocephalic, anicteric Respiratory/Chest: chest wall non-tender, lungs clear Breasts: no masses Cardiovascular: normal peripheral pulses Abdomen: tender Skin: rash 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, abnormal gait Lymphatic: no neck adenopathy Microbiology Date/Time Source Procedure Growth Status 12/14/16 15:50 Urine,Clean Catch Urine Culture - Preliminary Resulted Laboratory Tests 12/14/16 15:50: White Blood Count 8.5, Red Blood Count 2.89L, Hemoglobin 11.6L, Hematocrit 35.0L , Mean Corpuscular Volume 121H, Mean Corpuscular Hemoglobin 40.1H, Mean Corpuscular Hemoglobin Concent 33.2, Red Cell Distribution Width 16.2H, Platelet Count 322, Mean Platelet Volume 5.3L, Neutrophils (%) (Auto) 77.3H, Lymphocytes (%) (Auto) 11.9L, Monocytes (%) (Auto) 10.2H, Eosinophils (%) (Auto ) 0.0, Basophils (%) (Auto) 0.5, Urine Color Brown, Urine Appearance Very cloudy , Urine pH 5, Urine Specific [place] 1.020, Urine Protein 4+H, Urine Glucose (UA ) Negative, Urine Ketones 2+H, Urine Occult Blood 5+H, Urine Nitrite PositiveH, Urine Bilirubin 1+H, Urine Ictotest Positive, Urine Urobilinogen 8H, Urine Leukocyte Esterase 3+H, Urine RBC TntcH, Urine WBC TntcH, Urine Squamous Epithelial Cells Few, Urine Bacteria ManyH 12/14/16 17:43: Sodium Level 122L, Potassium Level 5.8H, Chloride Level 77L, Carbon Dioxide Level 9*L, Anion Gap 36H, Blood Urea Nitrogen 25H, Creatinine 1.9H, Estimat Glomerular Filtration Rate 35.8, Glucose Level 65L, Lactic Acid Level 13.30H, Calcium Level 11.8H, Total Bilirubin 2.2H, Direct Bilirubin 1.3H, Aspartate Amino Transf (AST/SGOT) 321H, Alanine Aminotransferase (ALT/SGPT) 152H, Alkaline Phosphatase 151H, Total Creatine Kinase 102, Creatine Kinase MB < 1.5, Creatine Kinase MB Relative Index , Troponin I < 0.30, Total Protein 8.1, Albumin 3.6, Globulin 4.5, Albumin/Globulin Ratio 0.8L 12/14/16 17:45: Serum Alcohol < 10 12/14/16 18:35: Arterial Blood pH 7.337L, Arterial Blood Partial Pressure CO2 11.5*L, Arterial Blood Partial Pressure O2 133.3H, Arterial Blood HCO3 6.0L, Arterial Blood Oxygen Saturation 98.4H, Arterial Blood Base Excess -17.2, Jose Enrique Test Positive 12/14/16 21:30: Lactic Acid Level 12.80H, Lipase 1939H, Salicylates Level < 1L, Serum Alcohol < 10 12/15/16 10:00: White Blood Count 6.1, Red Blood Count 2.76L, Hemoglobin 11.0L, Hematocrit 33.2L , Mean Corpuscular Volume 120H, Mean Corpuscular Hemoglobin 39.7H, Mean Corpuscular Hemoglobin Concent 33.0, Red Cell Distribution Width 16.0H, Platelet Count 279, Mean Platelet Volume 5.2L, Neutrophils (%) (Auto) , Lymphocytes (%) (Auto) , Monocytes (%) (Auto) , Eosinophils (%) (Auto) , Basophils (%) (Auto) , Differential Total Cells Counted 100, Neutrophils % ( Manual) 71, Lymphocytes % (Manual) 11L, Monocytes % (Manual) 8, Eosinophils % ( Manual) 0, Basophils % (Manual) 0, Band Neutrophils 10H, Nucleated Red Blood Cells 4, Platelet Estimate Adequate, Platelet Morphology Normal, Hypochromasia 1 +, Anisocytosis 1+, Macrocytosis 1+, Sodium Level 118*L, Potassium Level 4.4, Chloride Level 81L, Carbon Dioxide Level 13L, Anion Gap 24H, Blood Urea Nitrogen 28H, Creatinine 1.4H, Estimat Glomerular Filtration Rate 50.7, Glucose Level 123H, Osmolality 287L, Uric Acid [Pending], Calcium Level 9.0#, Total Bilirubin 2.0H, Direct Bilirubin 1.4H, Aspartate Amino Transf (AST/SGOT) 374H, Alanine Aminotransferase (ALT/SGPT) 165H, Alkaline Phosphatase 110H, Total Protein 6.8, Albumin 2.9L, Globulin 3.9, Albumin/Globulin Ratio 0.7L, Thyroid Stimulating Hormone (TSH) [Pending], Free Thyroxine [Pending], Free Triiodothyronine [Pending], Cortisol [Pending] Current Medications Medications (Trade) Dose Ordered Sig/Payam Route PRN Reason Start Time Stop Time Status Last Admin Dose Admin Acetaminophen (Tylenol) 650 mg Q4H PRN ORAL fever 12/14/16 19:45 01/13/17 19:44 Al Hydroxide/Mg Hydroxide (Mylanta II) 30 ml Q6H PRN ORAL dyspepsia 12/14/16 19:45 01/13/17 19:44 Cefepime HCl 1 gm/ Dextrose 55 ml @ 110 mls/hr Q24H IVPB 12/15/16 03:00 12/22/16 02:59 12/15/16 03:03 Chlordiazepoxide 25 mg 25 mg Q6H PRN ORAL Agitation 12/14/16 19:45 12/21/16 19:44 Clindamycin HCl/ Dextrose 50 ml @ 100 mls/hr Q8H IV 12/15/16 03:00 12/22/16 02:59 12/15/16 10:34 Dextrose STAT PRN IV Hypoglycemia 12/14/16 19:45 01/13/17 19:44 Dextrose/Sodium Chloride (D5ns) 1,000 ml @ 100 mls/hr Q10H IV 12/15/16 11:45 01/14/17 11:44 Folic Acid/ Magnesium Sulfate/ Multivitamins/ Sodium Chloride (Folvite/ Magnesium Sulfate/ M.v.i.-12/Sodium Chloride 1000ml bag) 1,014.2 ml @ 124.876 mls/hr Q24H IV 12/14/16 23:00 01/13/17 22:59 Heparin Sodium (Porcine) (Heparin 5000 units/ml) 5,000 units EVERY 12 HOURS SUBQ 12/14/16 21:00 01/13/17 20:59 12/15/16 10:37 Lorazepam (Ativan 2mg/ml 1ml) 2 mg Q1H PRN IV seizures 12/14/16 19:45 12/21/16 19:44 Morphine Sulfate (Morphine Sulfate) 1 mg Q4H PRN IVP For Pain 4-10 12/14/16 19:45 12/21/16 19:44 12/15/16 08:00 Ondansetron HCl (Zofran) 4 mg Q6H PRN IVP Nausea & Vomiting 12/14/16 19:45 01/13/17 19:44 Polyethylene Glycol (Miralax) 17 gm HSPRN PRN ORAL Constipation 12/14/16 19:45 01/13/17 19:44 Sodium Chloride 1,000 ml @ 300 mls/hr Q3H20M IV 12/14/16 23:15 01/13/17 23:14 12/15/16 01:45 Thiamine HCl 100 mg/Dextrose 56 ml @ 112 mls/hr Q24H IVPB 12/14/16 23:00 01/13/17 22:59 Zolpidem Tartrate (Ambien) 5 mg HSPRN PRN ORAL Insomnia 12/14/16 19:45 01/13/17 19:44 DAVID CLARKE Dec 15, 2016 11:46
[2016-12-15 11:57] LABS: THYROID STIMULATING HORMONE 1.07 uIU/mL (0.300-4.500)
[2016-12-15 12:00] VITALS: BP 101/64
[2016-12-15 16:00] VITALS: BP 111/62
--- NOTE | 2016-12-15 16:16 | Consultation ---
DATE OF CONSULTATION: INFECTIOUS DISEASE CONSULTATION CONSULTING PHYSICIAN: Brandan Rubin M.D. REQUESTING PHYSICIAN: Franky Olvera D.O. REASON FOR CONSULTATION: Right axillary hidradenitis and abdominal wall hidradenitis. Recommendation for antibiotics therapy with urinary tract infection and sepsis. HISTORY OF PRESENT ILLNESS: The patient is a 41-year-old female with past medical history of gastroesophageal reflux disease, hidradenitis, substance abuse, and alcohol abuse, was brought in to the [facility] emergency room for increased shortness of breath and chest pain, gradual in onset. The patient had history of alcohol abuse and recently has been drinking heavily for the last couple of days. She lives alone at home. The patient is well known to have prior history of hidradenitis, which she received multiple course of antibiotics for with no significant improvement. In the emergency room, she was found to have fever of 99.3 degrees. She was tachycardic. Urinalysis showed evidence of infection. She was found to have hidradenitis in the right axillary area and abdominal wall area, so she was admitted to the hospital. She was consulted by the primary provider for antibiotics treatment and further management. As of note, the patient is confused, lethargic, and cannot provide good history at this point. History was mainly obtained from the medical record and nursing staff. PAST MEDICAL HISTORY: Significant for alcohol abuse, hidradenitis, GERD, and substance abuse. PAST SURGICAL HISTORY: Unknown. MEDICATIONS: She received Unasyn in the emergency room. For the rest of her medications, please refer to [facility]. ALLERGIES: She is allergic to ibuprofen and NSAID. SOCIAL HISTORY: She lives alone at home. She drinks alcohol on average daily. Unclear if she use drugs or tobacco. FAMILY HISTORY: Unknown. REVIEW OF SYSTEMS: Unable to obtain. PHYSICAL EXAMINATION: VITAL SIGNS: Temperature 97.5 degrees, pulse 114, respirations 20, blood pressure 101/64, and saturation 100% on room air. GENERAL: A middle-aged female, up in bed, lethargic, confused, but alert and follow commands, not in distress. HEENT: Normocephalic and atraumatic. Pupils reactive to light equally. Pale sclera. Moist oral mucosa. No exudate or thrush. NECK: Supple. No lymphadenopathy. CARDIOVASCULAR: She is tachycardic. S1 and S2 positive. No murmur. LUNGS: Clear bilaterally. Diminished breathing sounds at the bases. No wheezing or rhonchi. ABDOMEN: Soft. Tender at the fold area with evidence of hidradenitis wound draining bloody drainage underneath the fold. No organomegaly. No ascites. EXTREMITY: Trace edema. No cyanosis. SKIN: She had right axillary hidradenitis skin break and drainage of foul smell. LABORATORY DATA: Labs showed white count of 6.1, hemoglobin of 11, and platelet count of 279,000. BUN of 28 and creatinine of 1.4. Lactic acid of 12.8. AST of 374 and ALT of 165. Lipase of 1959. Urinalysis showed +3 leukocyte esterase, WBC too numerous to count, and many bacteria. IMAGING: None in the system done. ASSESSMENT AND RECOMMENDATION: 1. Hidradenitis suppurativa in the right axillary area and abdominal wall fold. We will start the patient empirically on cefepime and clindamycin and I will send wound culture and blood culture. Consult wound care. 2. Urinary tract infection. We will send urine culture. Continue cefepime empirically for now. 3. Sepsis due to the above. We will send blood culture and start cefepime with clindamycin. 4. Acute pancreatitis, suspect due to alcohol abuse. Continue hydration and pain management. Keep NPO. Monitor lipase. Consult Gastrointestinal. Thank you for the consult. Infectious Disease will continue to follow. Brandan Rubin M.D. DR: STACIA JOB#: [id number] CC:
[2016-12-15 16:44] LABS: APPEARANCE,URINE CLOUDY; KETONES,URINE 3+ (NEGATIVE); LEUKOCYTE ESTERASE ,URINE 3+ (NEGATIVE); NITRITE,URINE NEGATIVE (NEGATIVE); PH,URINE 6 (4.5-8.0); PROTEIN,URINE 2+ (NEGATIVE); UROBILINOGEN,URINE 8 MG/DL (0.0-1.0)
--- NOTE | 2016-12-15 16:56 | Neurology Progress Note ---
Interim History Interim History ROS Limited/Unobtainable: No Objective Physical Exam Last Vital Signs Date Time Temp Pulse Resp B/P Pulse Ox O2 Delivery O2 Flow Rate FiO2 12/15/16 16:39 121 12/15/16 13:13 97.5 12/15/16 12:00 20 101/64 100 Room Air Laboratory Tests Test 12/14/16 17:43 12/14/16 17:45 12/14/16 18:35 12/14/16 21:30 Sodium Level 122 mEQ/L (135-145) L Potassium Level 5.8 mEQ/L (3.4-4.9) H Chloride Level 77 mEQ/L (98-107) L Carbon Dioxide Level 9 mEQ/L (20-30) *L Anion Gap 36 (5-15) H Blood Urea Nitrogen 25 mg/dL (7-23) H Creatinine 1.9 mg/dL (0.5-0.9) H Estimat Glomerular Filtration Rate 35.8 mL/min (>60) Glucose Level 65 mg/dL (74-106) L Lactic Acid Level 13.30 mmol/L (0.66-2.22) H 12.80 mmol/L (0.66-2.22) H Calcium Level 11.8 mg/dL (8.6-10.2) H Total Bilirubin 2.2 mg/dL (0.0-1.2) H Direct Bilirubin 1.3 mg/dL (0.1-0.3) H Aspartate Amino Transf (AST/SGOT) 321 U/L (5-40) H Alanine Aminotransferase (ALT/SGPT) 152 U/L (3-33) H Alkaline Phosphatase 151 U/L (35-104) H Total Creatine Kinase 102 U/L (26-140) Creatine Kinase MB < 1.5 ng/mL (< 3.8) Creatine Kinase MB Relative Index Troponin I < 0.30 ng/mL (<=0.30) Total Protein 8.1 g/dL (6.6-8.7) Albumin 3.6 g/dL (3.5-5.2) Globulin 4.5 g/dL Albumin/Globulin Ratio 0.8 (1.0-2.7) L Serum Alcohol < 10 mg/dL < 10 mg/dL Arterial Blood pH 7.337 (7.350-7.450) Arterial Blood Partial Pressure CO2 11.5 mmHg (35.0-45.0) *L Arterial Blood Partial Pressure O2 133.3 mmHg (75.0-100.0) H Arterial Blood HCO3 6.0 mmol/L (22.0-26.0) L Arterial Blood Oxygen Saturation 98.4 % (92.0-98.0) H Arterial Blood Base Excess -17.2 Jose Enrique Test Positive Lipase 1939 U/L (< 60) H Salicylates Level < 1 mg/dL (10-30) L Test 12/15/16 10:00 12/15/16 16:00 White Blood Count 6.1 K/UL (4.8-10.8) Red Blood Count 2.76 M/UL (4.20-5.40) L Hemoglobin 11.0 G/DL (12.0-16.0) L Hematocrit 33.2 % (37.0-47.0) L Mean Corpuscular Volume 120 FL (80-99) H Mean Corpuscular Hemoglobin 39.7 PG (27.0-31.0) H Mean Corpuscular Hemoglobin Concent 33.0 G/DL (32.0-36.0) Red Cell Distribution Width 16.0 % (11.6-14.8) H Platelet Count 279 K/UL (150-450) Mean Platelet Volume 5.2 FL (6.5-10.1) L Neutrophils (%) (Auto) % (45.0-75.0) Lymphocytes (%) (Auto) % (20.0-45.0) Monocytes (%) (Auto) % (1.0-10.0) Eosinophils (%) (Auto) % (0.0-3.0) Basophils (%) (Auto) % (0.0-2.0) Differential Total Cells Counted 100 Neutrophils % (Manual) 71 % (45-75) Lymphocytes % (Manual) 11 % (20-45) L Monocytes % (Manual) 8 % (1-10) Eosinophils % (Manual) 0 % (0-3) Basophils % (Manual) 0 % (0-2) Band Neutrophils 10 % (0-8) H Nucleated Red Blood Cells 4 /100 WBC Platelet Estimate Adequate Platelet Morphology Normal Hypochromasia 1+ Anisocytosis 1+ Macrocytosis 1+ Sodium Level 118 mEQ/L (135-145) *L Potassium Level 4.4 mEQ/L (3.4-4.9) Chloride Level 81 mEQ/L (98-107) L Carbon Dioxide Level 13 mEQ/L (20-30) L Anion Gap 24 (5-15) H Blood Urea Nitrogen 28 mg/dL (7-23) H Creatinine 1.4 mg/dL (0.5-0.9) H Estimat Glomerular Filtration Rate 50.7 mL/min (>60) Glucose Level 123 mg/dL (74-106) H Osmolality 287 mOsm/kg (297-317) L Uric Acid 7.0 mg/dL (3.0-7.5) Calcium Level 9.0 mg/dL (8.6-10.2) # Total Bilirubin 2.0 mg/dL (0.0-1.2) H Direct Bilirubin 1.4 mg/dL (0.1-0.3) H Aspartate Amino Transf (AST/SGOT) 374 U/L (5-40) H Alanine Aminotransferase (ALT/SGPT) 165 U/L (3-33) H Alkaline Phosphatase 110 U/L (35-104) H Total Protein 6.8 g/dL (6.6-8.7) Albumin 2.9 g/dL (3.5-5.2) L Globulin 3.9 g/dL Albumin/Globulin Ratio 0.7 (1.0-2.7) L Thyroid Stimulating Hormone (TSH) 1.070 uIU/mL (0.300-4.500) Free Thyroxine 1.10 ng/dL (0.86-1.85) Free Triiodothyronine Pending Cortisol Pending Urine Color Brown Urine Appearance Cloudy Urine pH 6 (4.5-8.0) Urine Specific [place] 1.015 (1.005-1.035) Urine Protein 2+ (NEGATIVE) H Urine Glucose (UA) Negative (NEGATIVE) Urine Ketones 3+ (NEGATIVE) H Urine Occult Blood 5+ (NEGATIVE) H Urine Nitrite Negative (NEGATIVE) Urine Bilirubin 1+ (NEGATIVE) H Urine Ictotest Pending Urine Urobilinogen 8 MG/DL (0.0-1.0) H Urine Leukocyte Esterase 3+ (NEGATIVE) H Urine RBC Pending Urine WBC Pending Urine Squamous Epithelial Cells Pending Urine Bacteria Pending Urine Osmolality 642 mOsm/kg (429-449) H Urine Random Sodium 28 mmol/L Urine Opiates Screen Pending Urine Barbiturates Screen Pending Phencyclidine (PCP) Screen Pending Urine Amphetamines Screen Pending Urine Benzodiazepines Screen Pending Urine Cocaine Screen Pending Urine Marijuana (THC) Screen Pending Impression/Recommendations Problems: (1) lethargy, r/o toxic-methabolic or hepathic encephalopathy (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
[2016-12-15 17:10] LABS: ICTOTEST POSITIVE
[2016-12-15 17:11] LABS: RBC,URINE TNTC /HPF (0 - 2); WBC,URINE TNTC /HPF (0 - 2)
[2016-12-15 17:12] LABS: BACTERIA,URINE FEW /HPF; SQUAMOUS EPITHELIAL CELL,UR MODERATE /LPF (NONE/OCC)
[2016-12-15 19:22] LABS: CORTISOL 57.5 ug/dL
[2016-12-15] MEDS ORDERED: Mylanta II UD 30ml ORAL PRN (19:30)
[2016-12-15] MEDS: D5NS 1,000 ML IV SCH (19:30)
[2016-12-15] MEDS ORDERED: chlordiazePOXIDE 25mg Cap ORAL PRN (19:45)
[2016-12-15] MEDS ORDERED: Miralax 17gm pkt ORAL PRN (19:45)
[2016-12-15] MEDS ORDERED: LORazepam Inj 2mg/ml 1ml IV PRN (19:45)
[2016-12-15] MEDS ORDERED: Zolpidem 5mg tab ORAL PRN (19:45)
--- NOTE | 2016-12-15 19:47 | History and Physical Report ---
DATE OF ADMISSION: 12/15/2016 TIME SEEN: 3 p.m. CONSULTANTS: 1. Bushra Lai M.D. 2. Dr. Owens. 3. Santos Jones M.D. 4. Ritchie Melendez M.D. CHIEF COMPLAINT: Shortness of breath and chest pain. BRIEF HISTORY: This is a 41-year-old female from home, presents to [facility] with history of shortness of breath and chest pain, diagnosed with pancreatitis, sepsis, UTI, and admitted to [facility] for further care. Currently, he is tired in bed, slight pain. No complaints. PAST MEDICAL HISTORY: As mentioned, hypertension and hidradenitis. PAST SURGICAL HISTORY: Hidradenitis surgery. MEDICATIONS: Cefepime, clindamycin, folic acid, thiamine, heparin, morphine sulfate, Zofran, Zolpidem, and aluminium hydroxide. ALLERGIES: NSAIDs. SOCIAL HISTORY: No smoke. Positive alcohol. No intravenous drug abuse. FAMILY HISTORY: Noncontributory. REVIEW OF SYSTEMS: Slight chest pain. Slight short of breath. Slight nausea. No vomiting or diarrhea. PHYSICAL EXAMINATION: GENERAL: Calm in bed, oriented x3, and in no acute distress. VITAL SIGNS: Show temperature is 97 degrees, pulse 114, respirations 20, and blood pressure 101/54. CARDIOVASCULAR: No murmurs. LUNGS: Poor exchange. ABDOMEN: Bowel sounds positive. Nontender and nondistended. EXTREMITIES: No cyanosis, clubbing, or edema. NEUROLOGIC: The patient moves all extremities, slightly weak. LABORATORY DATA: Lab exam show hemoglobin 11, otherwise CBC is normal. BMP show sodium 118, chloride 81, BUN and creatinine are 20 and 1.4, and glucose 173. AST is 374 and ALT 165. Lipase is 1939. Urinalysis show 3+ leukocyte esterase. ASSESSMENT: 1. Shortness of breath. 2. Chest pain. 3. Pancreatitis. 4. Renal insufficiency. 5. Anemia. 6. Sepsis. 7. Hyperglycemia. 8. Pyelonephritis. 9. Urinary tract infection. 10. Alcohol abuse. 11. Hypertension. 12. Hidradenitis. PLAN: 1. Continue premedications. 2. Wound care. 3. Antibiotics per Infectious Disease. 4. Blood pressure and blood sugar control. 5. Pain control. 6. NPO. 7. IV fluids. 8. Dietary followup. 9. OT, PT, and dietary evaluation. 10. CBC and BMP in the morning. 11. Dr. Lai, Dr. Owens, Dr. Jones, Dr. Melendez, and Dr. Moore to consult. 12. We will continue to follow this patient. Franky Olvera D.O. DR: KERRY JOB#: [id number] CC:
[2016-12-15 20:00] VITALS: BP 127/72
[2016-12-15] MEDS: DiphenhydrAMINE 50mg/ml Inj IVP PRN (23:00)
[2016-12-15] MEDS ORDERED: Thiamine HCl 100 MG in D5W 55 ML IVPB SCH (23:00)
[2016-12-15] MEDS ORDERED: Folic Acid 1 MG, Magnesium Sulfate 2,000 MG, Multivitamin - 12 Injection 10 ML in NS 10... IV SCH (23:00)
--- NOTE | 2016-12-15 23:49 | Wound Care Consultation ---
Wound Assessment Wound Assessment #1: Wound Number: #1 Wound Present on Admission: Yes New Wound: No Status Change of Wound: No Wound Location Body Site Modif: right Wound Location Body Site: axilla Wound Type: other - Hidradenitis Mine Test: Does not Mine Wound Thickness: Full Thickness Percent of Wound [place]/Red: 80 Percent of Wound Bed Yellow/Wh: 20 Wound Drainage Description: Serosanguineous Wound Drainage Amount: Copious Wound Drainage Odor: Foul Odor Tissue Surrounding Wound: Macerated Wound General Appearance: Draining Wound Assessment #2: Wound Number: #2 Wound Present on Admission: Yes New Wound: No Status Change of Wound: No Wound Location Body Site: perineal area Wound Type: other - Hidradenitis Mine Test: Does not Mine Wound Thickness: Full Thickness Percent of Wound [place]/Red: 100 Wound Drainage Description: Serosanguineous Wound Drainage Amount: Moderate Wound Drainage Odor: Foul Odor Tissue Surrounding Wound: Intact Wound General Appearance: Reddened, Draining Wound Assessment #3: Wound Number: #3 Wound Present on Admission: Yes New Wound: No Status Change of Wound: No Wound Location Body Site: abdominal fold Wound Type: other - Hidradenitis Mine Test: Does not Mine Wound Thickness: Full Thickness Percent of Wound [place]/Red: 95 Percent of Wound Bed Yellow/Wh: 5 Wound Drainage Description: Serosanguineous Wound Drainage Amount: Moderate Wound Drainage Odor: Foul Odor Tissue Surrounding Wound: Macerated Wound General Appearance: Reddened, Draining Wound Comment #1 Right axillary with Hidradenitis #2 Perineal area with Hidradenitis #3 Abdominal folds with Hidradenitis Recommendation -Right axillary Hidradenitis, Perineal area with Hidradenitis and Abdominal folds with Hidradenitis Cleanse with saline, pat dry, apply Adaptic, cover 4x4, secure with paper tape daily and PRN soiled/dislodged -Keep clean and dry -Optimize nutrition -Assess and f/u with MD for any changes FER MURPHY RN Dec 15, 2016 23:49
[2016-12-16] VITALS: BP 115/56
--- NOTE | 2016-12-16 00:52 | Cardiology Report ---
APPROVED REPORT EKG Measurement Heart [id number] Sinus tachycardia Septal infarct, age undetermined Abnormal ECG
[2016-12-16] MEDS ORDERED: Cefepime HCl 1 GM in D5W 55 ML IVPB SCH (03:00)
[2016-12-16] MEDS: Clindamycin 600mg 50 ML IV SCH ×3 (03:27→21:04)
[2016-12-16] MEDS: Morphine Sulfate 2mg/ml Inj IVP PRN ×4 (03:44→20:48)
[2016-12-16 04:00] VITALS: BP 119/63
--- NOTE | 2016-12-16 05:31 | Consultation ---
DATE OF CONSULTATION: 12/15/2016 NOTE: PHYSICIAN IS REDICTATING SOCIAL HISTORY AND ROS NEUROLOGICAL CONSULTATION CONSULTING PHYSICIAN: Javan Rawls M.D. REFERRING PHYSICIAN: Franky Olvera D.O. HISTORY OF PRESENT ILLNESS: The patient is a 41-year-old female, seen in neurological consultation to evaluate persistent weakness in both lower extremities and now progressive drowsiness. The patient presented to the hospital after she stopped daily alcohol abuse for couple of days. She developed shortness of breath, chest pain, lower abdominal pain, and pain in her right armpit area. Her vital signs on admission were stable with temperature 99.3, heart rate of 103, blood pressure 152/89. There was swelling and axillary erythema with discharge, right more than left. [place] coma scale was 15. She was in severe distress. Laboratory work included a CBC studies with hemoglobin 11.6, hematocrit 35.0, elevated MCV and MCH Chemistry panel with low carbon dioxide of 9, potassium 5.8, sodium 122, BUN 25, creatinine 1.9. Elevated liver enzymes, AST 321, ALT 152, direct bilirubin 1.3. Lactic acid 13.30. Elevated lipase 1929. Sodium down to 118, BUN remained 28, creatinine 1.4. The patient is well known to this facility. Her current admit is for alcohol abuse, severe pain, and recurrent hydradenitis. Following current admission, she was diagnosed with hydradenitis suppurativa right axillary area and abdominal wall fold, she was started on cefepime and and clindamycin. She has evidence of urinary tract infection, sepsis, and acute pancreatitis suspected to be result of alcohol use. PAST MEDICAL HISTORY: The patient has a history of alcohol abuse, chronic hydradenitis since age of 20, obesity, alcohol abuse, history of anxiety. MEDICATIONS: Treatment prior to admission included [place] as needed, Levaquin, and folic acid. Currently, she was given Ativan, as needed morphine for pain, thiamine supplements, folate supplement, clindamycin, and ampicillin. ALLERGIES: Ibuprofen and nonsteroidal agents. SOCIAL HISTORY: The patient lives alone. She admitted being alcoholic for at least couple of years, drinking daily. She developed withdrawal symptoms if she would stop drinking. Denies illicit drug abuse, nonsmoker. FAMILY HISTORY: Noncontributory. REVIEW OF SYSTEMS: History of alcohol abuse, history of recurrent hydradenitis, and history of weakness and numbness in both lower extremities starting somewhat in May of this year for which she had extensive workup and neurological evaluation in June of this year. MRI of the brain, cervical, thoracic and lumbar spine were unremarkable without explanation of weakness in her lower extremities which was found to be with significant give-way weakness. Apparently symptoms were fluctuating, overall she improved but indicates she has been walking without her walker or cane, just walking slowly. Right shoulder, right arm pit pain, and severe abdominal pain all developed 4-5 days ago. Burning senstion in the throat when drinking water. At home, generalized weakness, difficulty ambulation, drowsiness. Denies chest pain or palpitations. No respiratory problems. Denies urinary or bowel incontinence. She has a history of anxiety. PHYSICAL EXAMINATION: GENERAL: A well-developed, morbidly obese female, who found to be lethargic, intermittently arousable. VITAL SIGNS: Stable. Heart rate of 112, temperature 97.5, blood pressure 101/64. HEENT: Head is normocephalic. There is no evidence of trauma. Eyes, ears, and throat are clear. NECK: Supple. No meningeal signs. MUSCULOSKELETAL: Fairly unremarkable. There are infected areas in the right armpit and upper abdominal area that are covered with a sterile gauze. Peripheral pulses 1+ symmetric. MENTAL STATUS: The patient is lethargic, but arousable, open eyes, speaking slowly, she was able to follow commands. She was too drowsy to maintain conversation. Pupils are both responding to light and accommodation. Extraocular movement intact. No nystagmus. CRANIAL NERVE V: Normal corneal responses. CRANIAL NERVE VII: No facial asymmetry. CRANIAL NERVE VIII: Normal hearing. CRANIAL NERVES IX THROUGH XII: Tongue is in midline. Symmetric palate elevation. MOTOR EXAMINATION: Normal muscle tone. Strength 5/5 in both upper extremities. Able to lift and move both lower extremities, but not sustained effort. Deep tendon reflexes depressed. Biceps, triceps, brachioradialis, knee, and ankle jerks. Plantar responses flexor. SENSORY EXAMINATION: Withdrawing to pin stimulation both upper and lower extremities. Gait not tested. The patient was too drowsy. IMPRESSION: 1. Alcohol abuse, withdrawal. 2. Abnormal liver enzymes, rule out liver cirrhosis. 3. Liver cirrhosis, alcohol liver disease. 4. Rule out hepatic encephalopathy. 5. History of paraparesis, rule out alcohol-related polyneuropathy. 6. Sepsis. 7. Hydradenitis 8. Morbid obesity, RECOMMENDATION: 1. Check ammonia level. 2. Recheck liver function. 3. B12, methylmalonic acid, LUPE, sedimentation rate . 4. Vitamin D level. 5. Check abdominal ultrasound, check hepatitis profile, alpha fetoprotein level. 6. Meanwhile continue with IV fluids and antibiotics to cover underlying infection. 7. The patient has significant metabolic derangement with hyponatremia, renal insufficiency which will be addressed by internal medicine. In addition evidence of acute pancreatitis to be monitored. 8. Maintain NPO and monitor her lipase. 9. GI assessment is pending. Thank you for allowing me to see this interesting patient in neurological consultation Javan Rawls M.D. DR: Elvin JOB#: [id number] CC:
[2016-12-16] MEDS: D5NS 1,000 ML IV SCH ×3 (06:00→21:04)
[2016-12-16] MEDS: DiphenhydrAMINE 50mg/ml Inj IVP PRN ×3 (06:48→23:36)
[2016-12-16 08:00] VITALS: BP 122/77
[2016-12-16] MEDS: Heparin 5000 units/ml inj SUBQ SCH ×2 (08:35→21:03)
[2016-12-16 09:25] LABS: MEAN CORPUSCULAR HEMOGLOBIN 39.6 PG (27.0-31.0); MEAN CORPUSCULAR HGB CONC 32.7 G/DL (32.0-36.0); MEAN CORPUSCULAR VOLUME 121 FL (80-99); MEAN PLATELET VOLUME 5.3 FL (6.5-10.1); PLATELET COUNT 280 K/UL (150-450); RED BLOOD COUNT 2.46 M/UL (4.20-5.40); RED CELL DISTRIBUTION WIDTH 15.8 % (11.6-14.8); WHITE BLOOD COUNT 11.9 K/UL (4.8-10.8)
[2016-12-16 09:49] LABS: INR 1.4 (0.9-1.1); PROTHROMBIN TIME 14.7 SEC (9.30-11.50)
[2016-12-16 09:51] LABS: AMYLASE 110 U/L (10-110); HEMOLYSIS 14; IRON 133 ug/dL (37-145); TOTAL IRON BINDING CAPACITY 174 ug/dL (250-400)
[2016-12-16 09:53] LABS: ALANINE AMINOTRANSFERASE 122 U/L (3-33); ALBUMIN/GLOBULIN RATIO 0.7 (1.0-2.7); ANION GAP 15 (5-15); ASPARTATE AMINO TRANSFERASE 222 U/L (5-40); CALCIUM 8.3 mg/dL (8.6-10.2); CARBON DIOXIDE 19 mEQ/L (20-30); CHLORIDE 88 mEQ/L (98-107); CRP QUANT 6.5 mg/dL (< 0.5); GLOMERULAR FILTRATION RATE > 60 mL/min (>60); HEMOLYSIS 0; MAGNESIUM 2.6 mg/dL (1.7-2.5); PHOSPHORUS 1.2 mg/dL (2.5-4.8); POTASSIUM 3.7 mEQ/L (3.4-4.9); SODIUM 122 mEQ/L (135-145)
[2016-12-16 09:58] LABS: THYROID STIMULATING HORMONE 1.45 uIU/mL (0.300-4.500)
[2016-12-16 10:03] LABS: LIPASE 464 U/L (< 60)
[2016-12-16 10:10] LABS: BILIRUBIN,DIRECT 1.5 mg/dL (0.1-0.3)
[2016-12-16 10:18] LABS: FERRITIN > 2000 ng/mL (13-150)
--- NOTE | 2016-12-16 10:37 | Diagnostic Imaging Report ---
Indication: Abdominal pain, alcohol abuse, abnormal liver function tests Technique: Cho-scale and duplex images of the upper abdomen were obtained Comparison: To 02/17/17 Findings: Exam is somewhat limited by body habitus Gallbladder is unremarkable, without stones, wall thickening, nor pericholecystic fluid. Sonographic Pettit's sign is negative. Common bile duct measures 6 mm in diameter. No intrahepatic biliary ductal dilatation. Liver demonstrates normal echogenicity, no focal abnormality. It is enlarged. Portal vein and hepatic veins are patent. Pancreas is obscured by bowel gas. Spleen is unremarkable. Left kidney measures 10 cm in length. Right kidney measures 11.6 cm length. Both kidneys demonstrate normal echogenicity. There is no hydronephrosis. No focal abnormality . Abdominal aorta is partially obscured by bowel gas, visualized portions are non-aneurysmal . No significant change Impression: Negative for gallstones or dilated ducts Enlarged fatty liver, also described previously Note suboptimal visualization of pancreas and abdominal aorta
--- NOTE | 2016-12-16 10:38 | GI Initial Consult Note ---
History of Present Illness General Date patient seen: Dec 16, 2016 Time patient seen: 10:00 Reason for Hospitalization: Generalized Weakness Referring physician: PIETER GAUTHIER Reason for Consultation: PANCREATITIS Present Illness HPI Patient is a 41-year-old female presented after increased shortness of breath as well as chest pain. Patient gradual onset of symptoms. Patient prior history of alcohol abuse. Patient recently have been drinking heavily for the past 2 days. Patient noted to have a prior history of hidradenitis . GI Consult. HPI as noted above. GI consulted for alcoholic pancreatitis. ROS limited, patient is fatigue and falls asleep easily. NAD with no active s/sx N/ V/D. Patient was seen here back in June for similar reasons. Presents today with elevated lipase 1900+, elevated LFTs, and history of ETOH abuse. Home Meds Active Scripts Docusate Sodium* (COLACE*) 100 Mg Capsule, 100 MG ORAL THREE TIMES A DAY, #20 CAP Prov:MARTINA CREWS D.O. 07/14/16 Hydrocodone Bit/Acetaminophen 5-325* (NORCO 5-325*) 1 Each Tablet, 1 TAB ORAL Q6H Y for For Pain, #10 TAB 0 Refills Prov:MARTINA CREWS D.O. 07/14/16 Folic Acid* (FOLIC ACID*) 1 Mg Tablet, 1 MG ORAL DAILY, #30 TAB Prov:Juhi Garcia (Vanchtein) FACILITY ADMINISTRATOR 06/22/16 Reported Medications Hydrocodone Bit/Acetaminophen 5-325* (NORCO 5-325 TABLET*) 1 Each Tablet, 1 TAB ORAL Q4H Y for For Pain, TAB 06/20/16 Clindamycin HCl (Clindamycin HCl) 300 Mg Capsule, 450 MG ORAL EVERY 8 HOURS for 10 Days, CAP 06/20/16 Levofloxacin* (LEVAQUIN*) 500 Mg Tablet, 500 MG ORAL DAILY for 10 Days, TAB 06/20/16 No Known Medications* (NKM - No Known Medications*) ., 0 . 03/24/12 Med list reviewed/reconciled: Yes Allergies: Coded Allergies: IBUPROFEN (Verified Allergy, Severe, Anaphylaxis, 06/12/16) swollen face and lips NSAIDS (NON-STEROIDAL ANTI-INFLAMMA (Verified Allergy, Severe, Anaphylaxis , 06/12/16) swollen face and lips Uncoded Allergies: NSAIDS include Ibuprofen (Adverse Reaction, Severe, Anaphylaxis, 06/11/16) Swollen face and lip Patient History Limited by: medical condition History Provided By: Patient, Medical Record PMH Narrative Hx Cardiac Problems: No - HYDRODENITIS, SUBSTANCE ABUSE Hx Gastrointestinal Problems: Yes Social History: Reports: alcohol use - abuse Review of Systems All Other Systems: limited Physical Exam Vital Signs Date Time Temp Pulse Resp B/P Pulse Ox O2 Delivery O2 Flow Rate FiO2 12/14/16 14:19 99.3 103 16 152/89 98 Room Air Sp02 EP Interpretation: reviewed Labs Laboratory Tests Test 12/15/16 16:00 12/15/16 18:00 12/15/16 22:45 12/16/16 08:30 Urine Color Brown Urine Appearance Cloudy Urine pH 6 (4.5-8.0) Urine Specific [place] 1.015 (1.005-1.035) Urine Protein 2+ (NEGATIVE) H Urine Glucose (UA) Negative (NEGATIVE) Urine Ketones 3+ (NEGATIVE) H Urine Occult Blood 5+ (NEGATIVE) H Urine Nitrite Negative (NEGATIVE) Urine Bilirubin 1+ (NEGATIVE) H Urine Ictotest Positive Urine Urobilinogen 8 MG/DL (0.0-1.0) H Urine Leukocyte Esterase 3+ (NEGATIVE) H Urine RBC Tntc /HPF (0 - 2) H Urine WBC Tntc /HPF (0 - 2) H Urine Squamous Epithelial Cells Moderate /LPF (NONE/OCC) H Urine Bacteria Few /HPF (NONE) Urine Osmolality 642 mOsm/kg (429-449) H 635 mOsm/kg (429-449) H Urine Random Sodium 28 mmol/L 26 mmol/L Urine Opiates Screen Positive (NEGATIVE) H Urine Barbiturates Screen Negative (NEGATIVE) Phencyclidine (PCP) Screen Negative (NEGATIVE) Urine Amphetamines Screen Negative (NEGATIVE) Urine Benzodiazepines Screen Negative (NEGATIVE) Urine Cocaine Screen Negative (NEGATIVE) Urine Marijuana (THC) Screen Negative (NEGATIVE) Ammonia 26 umol/L (11-51) Vitamin D 25-Hydroxy Pending 25-Hydroxy Vitamin D2 Pending 25-Hydroxy Vitamin D3 Pending Hepatitis A IgM Antibody Pending Hepatitis B Surface Antigen Pending Hepatitis B Core IgM Antibody Pending Hepatitis C Antibody Pending Sodium Level 121 mEQ/L (135-145) L Urine Creatinine 106.0 mg/dL Test 12/16/16 08:45 White Blood Count 11.9 K/UL (4.8-10.8) #H Red Blood Count 2.46 M/UL (4.20-5.40) L Hemoglobin 9.7 G/DL (12.0-16.0) L Hematocrit 29.7 % (37.0-47.0) L Mean Corpuscular Volume 121 FL (80-99) H Mean Corpuscular Hemoglobin 39.6 PG (27.0-31.0) H Mean Corpuscular Hemoglobin Concent 32.7 G/DL (32.0-36.0) Red Cell Distribution Width 15.8 % (11.6-14.8) H Platelet Count 280 K/UL (150-450) Mean Platelet Volume 5.3 FL (6.5-10.1) L Neutrophils (%) (Auto) % (45.0-75.0) Lymphocytes (%) (Auto) % (20.0-45.0) Monocytes (%) (Auto) % (1.0-10.0) Eosinophils (%) (Auto) % (0.0-3.0) Basophils (%) (Auto) % (0.0-2.0) Neutrophils % (Manual) Pending Lymphocytes % (Manual) Pending Platelet Estimate Pending Platelet Morphology Pending Erythrocyte Sedimentation Rate Pending Reticulocyte Count Pending Prothrombin Time 14.7 SEC (9.30-11.50) H Prothromb Time International Ratio 1.4 (0.9-1.1) H Activated Partial Thromboplast Time 42 SEC (23-33) H Sodium Level 122 mEQ/L (135-145) L Potassium Level 3.7 mEQ/L (3.4-4.9) Chloride Level 88 mEQ/L (98-107) L Carbon Dioxide Level 19 mEQ/L (20-30) L Anion Gap 15 (5-15) Blood Urea Nitrogen 29 mg/dL (7-23) H Creatinine 1.0 mg/dL (0.5-0.9) H Estimat Glomerular Filtration Rate > 60 mL/min (>60) Glucose Level 116 mg/dL (74-106) H Osmolality 281 mOsm/kg (297-317) L Calcium Level 8.3 mg/dL (8.6-10.2) L Phosphorus Level 1.2 mg/dL (2.5-4.8) L Magnesium Level 2.6 mg/dL (1.7-2.5) H Iron Level 133 ug/dL (37-145) Total Iron Binding Capacity 174 ug/dL (250-400) L Percent Iron Saturation 76 % (15-50) H Unsaturated Iron Binding 41 ug/dL (112-346) L Ferritin > 2000 ng/mL (13-150) H Total Bilirubin 2.0 mg/dL (0.0-1.2) H Direct Bilirubin 1.5 mg/dL (0.1-0.3) H Aspartate Amino Transf (AST/SGOT) 222 U/L (5-40) H Alanine Aminotransferase (ALT/SGPT) 122 U/L (3-33) H Alkaline Phosphatase 105 U/L (35-104) H C-Reactive Protein, Quantitative 6.5 mg/dL (< 0.5) H Total Protein 6.0 g/dL (6.6-8.7) L Albumin 2.6 g/dL (3.5-5.2) L Globulin 3.4 g/dL Albumin/Globulin Ratio 0.7 (1.0-2.7) L Amylase Level 110 U/L (10-110) Lipase 464 U/L (< 60) H Vitamin B12 Level 812 pg/mL (211-946) Folate Pending Thyroid Stimulating Hormone (TSH) 1.450 uIU/mL (0.300-4.500) General Appearance: no apparent distress, alert Head: normocephalic EENT: PERRL/EOMI, normal ENT inspection Neck: supple Respiratory: normal breath sounds, no respiratory distress Cardiovascular: normal rate Gastrointestinal: soft Rectal: normal exam, normal rectal tone Musculoskeletal: back normal Neurologic: normal inspection, alert Psychiatric: normal inspection Skin: normal inspection, normal color, no rash, warm/dry Lymphatic: normal inspection, no adenopathy Current Medications Current Medications Medications (Trade) Dose Ordered Sig/Payam Route PRN Reason Start Time Stop Time Status Last Admin Dose Admin Acetaminophen (Tylenol) 650 mg Q4H PRN ORAL fever 12/15/16 19:30 01/14/17 19:29 Al Hydroxide/Mg Hydroxide (Mylanta II) 30 ml Q6H PRN ORAL dyspepsia 12/15/16 19:30 01/14/17 19:29 Cefepime HCl 1 gm/ Dextrose 55 ml @ 110 mls/hr Q24H IVPB 8/18/17 03:00 12/23/16 02:59 12/16/16 03:28 Chlordiazepoxide (Librium) 25 mg Q6H PRN ORAL Agitation 12/15/16 19:45 12/22/16 19:44 Clindamycin HCl/ Dextrose 50 ml @ 100 mls/hr Q8HR@0300,1100,1900 IV 12/15/16 20:00 12/22/16 19:59 12/16/16 03:27 Dextrose (Dextrose 50%) STAT PRN IV Hypoglycemia 12/15/16 19:45 01/14/17 19:44 Dextrose/Sodium Chloride 1,000 ml @ 100 mls/hr Q10H IV 12/15/16 19:30 01/14/17 19:29 12/16/16 06:00 Diphenhydramine HCl (Benadryl) 25 mg Q6H PRN IVP Itching/Pruritis 12/15/16 22:45 01/14/17 22:44 12/16/16 06:48 Folic Acid 1 mg/ Magnesium Sulfate 2000 mg/ Multivitamins 10 ml/Sodium Chloride 1,014.2 ml @ 124.876 mls/hr Q24H IV 12/15/16 23:00 01/14/17 22:59 12/15/16 23:31 Heparin Sodium (Porcine) (Heparin 5000 units/ml) 5,000 units EVERY 12 HOURS SUBQ 12/15/16 21:00 01/14/17 20:59 12/16/16 08:35 Lorazepam (Ativan 2mg/ml 1ml) 2 mg Q1H PRN IV seizures 12/15/16 19:45 12/22/16 19:44 Morphine Sulfate (Morphine Sulfate) 1 mg Q4H PRN IVP For Pain 4-10 12/15/16 19:45 12/22/16 19:44 12/16/16 08:32 Ondansetron HCl (Zofran) 4 mg Q6H PRN IVP Nausea & Vomiting 12/15/16 19:45 01/14/17 19:44 Polyethylene Glycol (Miralax) 17 gm HSPRN PRN ORAL Constipation 12/15/16 19:45 01/14/17 19:44 Thiamine HCl/ Dextrose (Vitamin B1/D5W) 56 ml @ 112 mls/hr Q24H IVPB 12/15/16 23:00 01/14/17 22:59 12/15/16 23:31 Zolpidem Tartrate (Ambien) 5 mg HSPRN PRN ORAL Insomnia 12/15/16 19:45 01/14/17 19:44 GI: Plan Problems: (1) Alcoholic hepatitis (2) lethargy, r/o toxic-methabolic or hepathic encephalopathy (3) Anxiety (4) Alcoholic pancreatitis Plan elevated lipase >> downtrending discriminant factor, 23.6 >> will defer corticosteroid treatment for alcoholic hepatitis regular diet monitor H&H, transfuse prn H2B repeat LFTs, lipase fu hep panel pain mgmt fu labs Discussed with Dr. Jones. Thank you for referring this patient, we will follow. Nayeli Box N.P. Dec 16, 2016 10:38
[2016-12-16 10:50] LABS: ANISOCYTOSIS 1+; BAND NEUTROPHILS % (MANUAL) 7 % (0-8); BASOPHILS % (MANUAL) 0 % (0-2); BURR CELLS 1+; EOSINOPHILS % (MANUAL) 0 % (0-3); HYPOCHROMASIA 1+; LYMPHOCYTES % (MANUAL) 12 % (20-45); NEUTROPHILS % (MANUAL) 69 % (45-75); NUCLEATED RED BLOOD CELLS 2 /100 WBC; PLATELET ESTIMATE ADEQUATE; PLATELET MORPHOLOGY NORMAL; TEAR DROP CELLS 1+; TOTAL CELLS COUNTED 100
[2016-12-16 10:52] LABS: SCHISTOCYTES 1+
[2016-12-16 11:19] LABS: ERYTHROCYTE SEDIMENTATION RATE 61 MM/HR (0-20)
[2016-12-16 12:00] VITALS: BP 114/64
--- NOTE | 2016-12-16 13:27 | Pulmonology Progress Note ---
Assessment/Plan Problems: (1) Metabolic acidosis (2) Hyponatremia (3) Alcoholic pancreatitis (4) Cellulitis (5) Hydradenitis (6) Anxiety Assessment/Plan npo IV hydration, D5 NS at 100 symptomatic treatment abx for cellulitis of skin folds dvt porphylaxis hyponatremia w/u librium prn renal evaluation dvt prophylaxis Subjective ROS Limited/Unobtainable: No Interval Events: feeling better Allergies: Coded Allergies: IBUPROFEN (Verified Allergy, Severe, Anaphylaxis, 06/12/16) swollen face and lips NSAIDS (NON-STEROIDAL ANTI-INFLAMMA (Verified Allergy, Severe, Anaphylaxis , 06/12/16) swollen face and lips Uncoded Allergies: NSAIDS include Ibuprofen (Adverse Reaction, Severe, Anaphylaxis, 06/11/16) Swollen face and lip Objective Last 24 Hour Vital Signs Date Time Temp Pulse Resp B/P Pulse Ox O2 Delivery O2 Flow Rate FiO2 12/16/16 12:00 97.5 115 20 114/64 96 Room Air 12/16/16 12:00 115 12/16/16 08:00 114 12/16/16 08:00 97.8 116 20 122/77 99 Room Air 12/16/16 04:00 99.1 117 20 119/63 98 Room Air 12/16/16 04:00 116 12/16/16 00:00 97.2 119 20 115/56 100 Room Air 12/16/16 00:00 119 12/15/16 20:00 124 12/15/16 20:00 97.2 127 20 127/72 100 Room Air 12/15/16 18:12 97.2 12/15/16 16:39 121 12/15/16 16:00 97.2 114 20 111/62 100 Intake and Output 12/15/16 12/16/16 19:00 07:00 Intake Total 820 ml 224.876 ml Output Total 150 ml Balance 670 ml 224.876 ml Intake Oral 370 ml IV Total 450 ml 224.876 ml Output Urine Total 150 ml # Voids 2 1 General Appearance: WD/WN HEENT: normocephalic, atraumatic Respiratory/Chest: chest wall non-tender, lungs clear Breasts: no masses Abdomen: normal bowel sounds, soft, non tender Genitourinary: normal external genitalia Extremities: no cyanosis Skin: no rash Neurologic/Psychiatric: jockey's agent II-XII grossly normal Lymphatic: no neck adenopathy Microbiology Date/Time Source Procedure Growth Status 12/14/16 16:40 Blood Blood Culture - Preliminary NO GROWTH AFTER 24 HOURS Resulted 12/14/16 16:20 Blood Blood Culture - Preliminary NO GROWTH AFTER 24 HOURS Resulted 12/15/16 16:00 Urine,Clean Catch Urine Culture - Preliminary NO GROWTH Resulted 12/14/16 15:50 Urine,Clean Catch Urine Culture - Preliminary Gram Negative Bacillus 1 Gram Negative Bacillus 2 Resulted Laboratory Tests 12/15/16 16:00: Urine Color Brown, Urine Appearance Cloudy, Urine pH 6, Urine Specific [place] 1.015, Urine Protein 2+H, Urine Glucose (UA) Negative, Urine Ketones 3+H, Urine Occult Blood 5+H, Urine Nitrite Negative, Urine Bilirubin 1+H, Urine Ictotest Positive, Urine Urobilinogen 8H, Urine Leukocyte Esterase 3+H, Urine RBC TntcH, Urine WBC TntcH, Urine Squamous Epithelial Cells ModerateH, Urine Bacteria Few, Urine Osmolality 642H, Urine Random Sodium 28, Urine Opiates Screen PositiveH, Urine Barbiturates Screen Negative, Phencyclidine (PCP) Screen Negative, Urine Amphetamines Screen Negative, Urine Benzodiazepines Screen Negative, Urine Cocaine Screen Negative, Urine Marijuana (THC) Screen Negative 12/15/16 18:00: Ammonia 26, Vitamin D 25-Hydroxy [Pending], 25-Hydroxy Vitamin D2 [Pending], 25- Hydroxy Vitamin D3 [Pending], Hepatitis A IgM Antibody Negative, Hepatitis B Surface Antigen Negative, Hepatitis B Core IgM Antibody Negative, Hepatitis C Antibody 0.1 12/15/16 22:45: Sodium Level 121L 12/16/16 08:30: Urine Osmolality 635H, Urine Random Sodium 26, Urine Creatinine 106.0 12/16/16 08:45: White Blood Count 11.9#H, Red Blood Count 2.46L, Hemoglobin 9.7L, Hematocrit 29.7L, Mean Corpuscular Volume 121H, Mean Corpuscular Hemoglobin 39.6H, Mean Corpuscular Hemoglobin Concent 32.7, Red Cell Distribution Width 15.8H, Platelet Count 280, Mean Platelet Volume 5.3L, Neutrophils (%) (Auto) , Lymphocytes (%) (Auto) , Monocytes (%) (Auto) , Eosinophils (%) (Auto) , Basophils (%) (Auto) , Differential Total Cells Counted 100, Neutrophils % ( Manual) 69, Lymphocytes % (Manual) 12L, Monocytes % (Manual) 12H, Eosinophils % (Manual) 0, Basophils % (Manual) 0, Band Neutrophils 7, Nucleated Red Blood Cells 2, Platelet Estimate Adequate, Platelet Morphology Normal, Hypochromasia 1 +, Anisocytosis 1+, Tear Drop Cells 1+, [place] Cells 1+, Schistocytes 1+, Erythrocyte Sedimentation Rate 61H, Reticulocyte Count 2.0, Prothrombin Time 14.7H, Prothromb Time International Ratio 1.4H, Activated Partial Thromboplast Time 42H, Sodium Level 122L, Potassium Level 3.7, Chloride Level 88L, Carbon Dioxide Level 19L, Anion Gap 15, Blood Urea Nitrogen 29H, Creatinine 1.0H, Estimat Glomerular Filtration Rate > 60, Glucose Level 116H, Osmolality 281L, Calcium Level 8.3L, Phosphorus Level 1.2L, Magnesium Level 2.6H, Iron Level 133 , Total Iron Binding Capacity 174L, Percent Iron Saturation 76H, Unsaturated Iron Binding 41L, Ferritin > 2000H, Total Bilirubin 2.0H, Direct Bilirubin 1.5H , Aspartate Amino Transf (AST/SGOT) 222H, Alanine Aminotransferase (ALT/SGPT) 122H, Alkaline Phosphatase 105H, C-Reactive Protein, Quantitative 6.5H, Total Protein 6.0L, Albumin 2.6L, Globulin 3.4, Albumin/Globulin Ratio 0.7L, Amylase Level 110, Lipase 464H, Vitamin B12 Level 812, Folate [Pending], Thyroid Stimulating Hormone (TSH) 1.450 Current Medications Medications (Trade) Dose Ordered Sig/Payam Route PRN Reason Start Time Stop Time Status Last Admin Dose Admin Acetaminophen (Tylenol) 650 mg Q4H PRN ORAL fever 12/15/16 19:30 01/14/17 19:29 Al Hydroxide/Mg Hydroxide (Mylanta II) 30 ml Q6H PRN ORAL dyspepsia 12/15/16 19:30 01/14/17 19:29 Cefepime HCl 1 gm/ Dextrose 55 ml @ 110 mls/hr Q24H IVPB 12/16/16 03:00 12/23/16 02:59 12/16/16 03:28 Chlordiazepoxide (Librium) 25 mg Q6H PRN ORAL Agitation 12/15/16 19:45 12/22/16 19:44 Clindamycin HCl/ Dextrose 50 ml @ 100 mls/hr Q8HR@0300,1100,1900 IV 12/15/16 20:00 12/22/16 19:59 12/16/16 12:01 Dextrose (Dextrose 50%) STAT PRN IV Hypoglycemia 12/15/16 19:45 01/14/17 19:44 Dextrose/Sodium Chloride 1,000 ml @ 100 mls/hr Q10H IV 12/15/16 19:30 01/14/17 19:29 12/16/16 06:00 Diphenhydramine HCl (Benadryl) 25 mg Q6H PRN IVP Itching/Pruritis 12/15/16 22:45 01/14/17 22:44 12/16/16 06:48 Folic Acid 1 mg/ Magnesium Sulfate 2000 mg/ Multivitamins 10 ml/Sodium Chloride 1,014.2 ml @ 124.876 mls/hr Q24H IV 12/15/16 23:00 01/14/17 22:59 12/15/16 23:31 Heparin Sodium (Porcine) (Heparin 5000 units/ml) 5,000 units EVERY 12 HOURS SUBQ 12/15/16 21:00 01/14/17 20:59 12/16/16 08:35 Lorazepam (Ativan 2mg/ml 1ml) 2 mg Q1H PRN IV seizures 12/15/16 19:45 12/22/16 19:44 Morphine Sulfate (Morphine Sulfate) 1 mg Q4H PRN IVP For Pain 4-10 12/15/16 19:45 12/22/16 19:44 12/16/16 08:32 Ondansetron HCl (Zofran) 4 mg Q6H PRN IVP Nausea & Vomiting 12/15/16 19:45 01/14/17 19:44 Polyethylene Glycol (Miralax) 17 gm HSPRN PRN ORAL Constipation 12/15/16 19:45 01/14/17 19:44 Thiamine HCl/ Dextrose (Vitamin B1/D5W) 56 ml @ 112 mls/hr Q24H IVPB 12/15/16 23:00 01/14/17 22:59 12/15/16 23:31 Zolpidem Tartrate (Ambien) 5 mg HSPRN PRN ORAL Insomnia 12/15/16 19:45 01/14/17 19:44 DAVID CLARKE Dec 16, 2016 13:27
--- NOTE | 2016-12-16 14:54 | General Progress Note ---
Assessment/Plan Problem List: (1) Acute alcohol intoxication ICD Codes: F10.129 - Alcohol abuse with intoxication, unspecified SNOMED: 07089589 (2) Severe anemia ICD Codes: D64.9 - Anemia, unspecified SNOMED: 447560009 (3) Weak ICD Codes: R53.1 - Weakness SNOMED: 37978822 (4) Abdominal pain ICD Codes: R10.9 - Unspecified abdominal pain SNOMED: 63389520 (5) Hydradenitis ICD Codes: L73.2 - Hidradenitis suppurativa SNOMED: 92389015 (6) Sepsis ICD Codes: A41.9 - Sepsis, unspecified organism SNOMED: 80665776 (7) UTI (urinary tract infection) ICD Codes: N39.0 - Urinary tract infection, site not specified SNOMED: 60252264 (8) Acute pancreatitis ICD Codes: K85.90 - Acute pancreatitis without necrosis or infection, unspecified SNOMED: 008344479 (9) Generalized weakness ICD Codes: R53.1 - Weakness SNOMED: 46064130 Status: stable, progressing, tolerating diet Assessment/Plan ot pt diet detox pain control abx cbc bmp am Subjective Constitutional: Reports: weakness Allergies: Coded Allergies: IBUPROFEN (Verified Allergy, Severe, Anaphylaxis, 06/12/16) swollen face and lips NSAIDS (NON-STEROIDAL ANTI-INFLAMMA (Verified Allergy, Severe, Anaphylaxis , 06/12/16) swollen face and lips Uncoded Allergies: NSAIDS include Ibuprofen (Adverse Reaction, Severe, Anaphylaxis, 06/11/16) Swollen face and lip All Systems: reviewed and negative except above Subjective sl nausea Objective Last 24 Hour Vital Signs Date Time Temp Pulse Resp B/P Pulse Ox O2 Delivery O2 Flow Rate FiO2 12/16/16 12:00 97.5 115 20 114/64 96 Room Air 12/16/16 12:00 115 12/16/16 08:00 114 12/16/16 08:00 97.8 116 20 122/77 99 Room Air 12/16/16 04:00 99.1 117 20 119/63 98 Room Air 12/16/16 04:00 116 12/16/16 00:00 97.2 119 20 115/56 100 Room Air 12/16/16 00:00 119 12/15/16 20:00 124 12/15/16 20:00 97.2 127 20 127/72 100 Room Air 12/15/16 18:12 97.2 12/15/16 16:39 121 12/15/16 16:00 97.2 114 20 111/62 100 Intake and Output 12/15/16 12/16/16 19:00 07:00 Intake Total 820 ml 224.876 ml Output Total 150 ml Balance 670 ml 224.876 ml Intake Oral 370 ml IV Total 450 ml 224.876 ml Output Urine Total 150 ml # Voids 2 1 Laboratory Tests 12/15/16 16:00: Urine Color Brown, Urine Appearance Cloudy, Urine pH 6, Urine Specific [place] 1.015, Urine Protein 2+H, Urine Glucose (UA) Negative, Urine Ketones 3+H, Urine Occult Blood 5+H, Urine Nitrite Negative, Urine Bilirubin 1+H, Urine Ictotest Positive, Urine Urobilinogen 8H, Urine Leukocyte Esterase 3+H, Urine RBC TntcH, Urine WBC TntcH, Urine Squamous Epithelial Cells ModerateH, Urine Bacteria Few, Urine Osmolality 642H, Urine Random Sodium 28, Urine Opiates Screen PositiveH, Urine Barbiturates Screen Negative, Phencyclidine (PCP) Screen Negative, Urine Amphetamines Screen Negative, Urine Benzodiazepines Screen Negative, Urine Cocaine Screen Negative, Urine Marijuana (THC) Screen Negative 12/15/16 18:00: Ammonia 26, Vitamin D 25-Hydroxy [Pending], 25-Hydroxy Vitamin D2 [Pending], 25- Hydroxy Vitamin D3 [Pending], Hepatitis A IgM Antibody Negative, Hepatitis B Surface Antigen Negative, Hepatitis B Core IgM Antibody Negative, Hepatitis C Antibody 0.1 12/15/16 22:45: Sodium Level 121L 12/16/16 08:30: Urine Osmolality 635H, Urine Random Sodium 26, Urine Creatinine 106.0 12/16/16 08:45: White Blood Count 11.9#H, Red Blood Count 2.46L, Hemoglobin 9.7L, Hematocrit 29.7L, Mean Corpuscular Volume 121H, Mean Corpuscular Hemoglobin 39.6H, Mean Corpuscular Hemoglobin Concent 32.7, Red Cell Distribution Width 15.8H, Platelet Count 280, Mean Platelet Volume 5.3L, Neutrophils (%) (Auto) , Lymphocytes (%) (Auto) , Monocytes (%) (Auto) , Eosinophils (%) (Auto) , Basophils (%) (Auto) , Differential Total Cells Counted 100, Neutrophils % ( Manual) 69, Lymphocytes % (Manual) 12L, Monocytes % (Manual) 12H, Eosinophils % (Manual) 0, Basophils % (Manual) 0, Band Neutrophils 7, Nucleated Red Blood Cells 2, Platelet Estimate Adequate, Platelet Morphology Normal, Hypochromasia 1 +, Anisocytosis 1+, Tear Drop Cells 1+, Hermann Cells 1+, Schistocytes 1+, Erythrocyte Sedimentation Rate 61H, Reticulocyte Count 2.0, Prothrombin Time 14.7H, Prothromb Time International Ratio 1.4H, Activated Partial Thromboplast Time 42H, Sodium Level 122L, Potassium Level 3.7, Chloride Level 88L, Carbon Dioxide Level 19L, Anion Gap 15, Blood Urea Nitrogen 29H, Creatinine 1.0H, Estimat Glomerular Filtration Rate > 60, Glucose Level 116H, Osmolality 281L, Calcium Level 8.3L, Phosphorus Level 1.2L, Magnesium Level 2.6H, Iron Level 133 , Total Iron Binding Capacity 174L, Percent Iron Saturation 76H, Unsaturated Iron Binding 41L, Ferritin > 2000H, Total Bilirubin 2.0H, Direct Bilirubin 1.5H , Aspartate Amino Transf (AST/SGOT) 222H, Alanine Aminotransferase (ALT/SGPT) 122H, Alkaline Phosphatase 105H, C-Reactive Protein, Quantitative 6.5H, Total Protein 6.0L, Albumin 2.6L, Globulin 3.4, Albumin/Globulin Ratio 0.7L, Amylase Level 110, Lipase 464H, Vitamin B12 Level 812, Folate [Pending], Thyroid Stimulating Hormone (TSH) 1.450 Height (Feet): 5 Height (Inches): 6.00 Weight (Pounds): 217 General Appearance: lethargic EENT: normal ENT inspection Neck: normal alignment Cardiovascular: normal peripheral pulses, normal rate, regular rhythm Respiratory/Chest: chest wall non-tender, lungs clear, normal breath sounds Abdomen: normal bowel sounds, non tender, soft Extremities: normal inspection Edema: no edema noted Arm (L), no edema noted Arm (R), no edema noted Leg (L), no edema noted Leg (R), no edema noted Pedal (L), no edema noted Pedal (R), no edema noted Generalized Neurologic: responsive, motor weakness Skin: normal pigmentation, warm/dry PIETER GAUTHIER Dec 16, 2016 14:54
[2016-12-16] MEDS ORDERED: D5NS 1000ml IV ONE (15:58)
[2016-12-16 16:00] VITALS: BP 126/72
--- NOTE | 2016-12-16 17:13 | Infectious Diseases Prog Note ---
Assessment/Plan Problems: (1) UTI (urinary tract infection) Assessment & Plan: with two gram negative rods, on cefepime empirically, await identification and sensitivity (2) Sepsis Assessment & Plan: await blood culture and continue cefepime with clindamycin (3) Acute pancreatitis Assessment & Plan: due to alcohol abuse, continue hydration, and pain management, keep npo, monitor lipase (4) Hidradenitis suppurativa Assessment & Plan: on cefepime and clindamycin , continue local wound care Subjective Constitutional: Reports: anorexia, fatigue HEENT: Reports: no symptoms Respiratory: Reports: no symptoms Cardiovascular: Reports: no symptoms Gastrointestinal/Abdominal: Reports: bloating, nausea Genitourinary: Reports: no symptoms Neurologic: Reports: confusion, weakness Psychiatric: Reports: depression Skin: Reports: ulcer Endocrine: Reports: no symptoms Hematologic: Reports: no symptoms Allergies: Coded Allergies: IBUPROFEN (Verified Allergy, Severe, Anaphylaxis, 06/12/16) swollen face and lips NSAIDS (NON-STEROIDAL ANTI-INFLAMMA (Verified Allergy, Severe, Anaphylaxis , 06/12/16) swollen face and lips Uncoded Allergies: NSAIDS include Ibuprofen (Adverse Reaction, Severe, Anaphylaxis, 06/11/16) Swollen face and lip Objective Vital Signs Last 24 Hour Vital Signs Date Time Temp Pulse Resp B/P Pulse Ox O2 Delivery O2 Flow Rate FiO2 12/16/16 16:00 97.4 116 20 126/72 97 Room Air 12/16/16 12:00 97.5 115 20 114/64 96 Room Air 12/16/16 12:00 115 12/16/16 08:00 114 12/16/16 08:00 97.8 116 20 122/77 99 Room Air 12/16/16 04:00 99.1 117 20 119/63 98 Room Air 12/16/16 04:00 116 12/16/16 00:00 97.2 119 20 115/56 100 Room Air 12/16/16 00:00 119 12/15/16 20:00 124 12/15/16 20:00 97.2 127 20 127/72 100 Room Air 12/15/16 18:12 97.2 Height (Feet): 5 Height (Inches): 6.00 Weight (Pounds): 217 General Appearance: WD/WN, no acute distress HEENT: normocephalic, atraumatic, anicteric, mucous membranes moist, PERRL, supple, no JVD Respiratory/Chest: chest wall non-tender, lungs clear, normal breath sounds, no respiratory distress, no accessory muscle use Cardiovascular: normal peripheral pulses, normal rate, regular rhythm, no JVD Abdomen: normal bowel sounds, no organomegaly, non distended, no mass, no scars , tender, other - abdominal fold wound drining Extremities: no cyanosis, no clubbing, other - right auxillary hidradenitis Skin: no lesions, no ulcers, ulcers Neurologic/Psychiatric: alert Microbiology Date/Time Source Procedure Growth Status 12/14/16 16:40 Blood Blood Culture - Preliminary NO GROWTH AFTER 24 HOURS Resulted 12/14/16 16:20 Blood Blood Culture - Preliminary NO GROWTH AFTER 24 HOURS Resulted 12/15/16 16:00 Urine,Clean Catch Urine Culture - Preliminary NO GROWTH Resulted 12/14/16 15:50 Urine,Clean Catch Urine Culture - Preliminary Gram Negative Bacillus 1 Gram Negative Bacillus 2 Resulted Laboratory Tests Test 12/15/16 18:00 12/15/16 22:45 12/16/16 08:30 12/16/16 08:45 Ammonia 26 umol/L (11-51) Vitamin D 25-Hydroxy Pending 25-Hydroxy Vitamin D2 Pending 25-Hydroxy Vitamin D3 Pending Hepatitis A IgM Antibody Negative (Negative) Hepatitis B Surface Antigen Negative (Negative) Hepatitis B Core IgM Antibody Negative (Negative) Hepatitis C Antibody 0.1 s/co ratio (0.0-0.9) Sodium Level 121 mEQ/L (135-145) L 122 mEQ/L (135-145) L Urine Osmolality 635 mOsm/kg (429-449) H Urine Random Sodium 26 mmol/L Urine Creatinine 106.0 mg/dL White Blood Count 11.9 K/UL (4.8-10.8) #H Red Blood Count 2.46 M/UL (4.20-5.40) L Hemoglobin 9.7 G/DL (12.0-16.0) L Hematocrit 29.7 % (37.0-47.0) L Mean Corpuscular Volume 121 FL (80-99) H Mean Corpuscular Hemoglobin 39.6 PG (27.0-31.0) H Mean Corpuscular Hemoglobin Concent 32.7 G/DL (32.0-36.0) Red Cell Distribution Width 15.8 % (11.6-14.8) H Platelet Count 280 K/UL (150-450) Mean Platelet Volume 5.3 FL (6.5-10.1) L Neutrophils (%) (Auto) % (45.0-75.0) Lymphocytes (%) (Auto) % (20.0-45.0) Monocytes (%) (Auto) % (1.0-10.0) Eosinophils (%) (Auto) % (0.0-3.0) Basophils (%) (Auto) % (0.0-2.0) Differential Total Cells Counted 100 Neutrophils % (Manual) 69 % (45-75) Lymphocytes % (Manual) 12 % (20-45) L Monocytes % (Manual) 12 % (1-10) H Eosinophils % (Manual) 0 % (0-3) Basophils % (Manual) 0 % (0-2) Band Neutrophils 7 % (0-8) Nucleated Red Blood Cells 2 /100 WBC Platelet Estimate Adequate Platelet Morphology Normal Hypochromasia 1+ Anisocytosis 1+ Tear Drop Cells 1+ Hermann Cells 1+ Schistocytes 1+ Erythrocyte Sedimentation Rate 61 MM/HR (0-20) H Reticulocyte Count 2.0 % (0.0-2.0) Prothrombin Time 14.7 SEC (9.30-11.50) H Prothromb Time International Ratio 1.4 (0.9-1.1) H Activated Partial Thromboplast Time 42 SEC (23-33) H Potassium Level 3.7 mEQ/L (3.4-4.9) Chloride Level 88 mEQ/L (98-107) L Carbon Dioxide Level 19 mEQ/L (20-30) L Anion Gap 15 (5-15) Blood Urea Nitrogen 29 mg/dL (7-23) H Creatinine 1.0 mg/dL (0.5-0.9) H Estimat Glomerular Filtration Rate > 60 mL/min (>60) Glucose Level 116 mg/dL (74-106) H Osmolality 281 mOsm/kg (297-317) L Calcium Level 8.3 mg/dL (8.6-10.2) L Phosphorus Level 1.2 mg/dL (2.5-4.8) L Magnesium Level 2.6 mg/dL (1.7-2.5) H Iron Level 133 ug/dL (37-145) Total Iron Binding Capacity 174 ug/dL (250-400) L Percent Iron Saturation 76 % (15-50) H Unsaturated Iron Binding 41 ug/dL (112-346) L Ferritin > 2000 ng/mL (13-150) H Total Bilirubin 2.0 mg/dL (0.0-1.2) H Direct Bilirubin 1.5 mg/dL (0.1-0.3) H Aspartate Amino Transf (AST/SGOT) 222 U/L (5-40) H Alanine Aminotransferase (ALT/SGPT) 122 U/L (3-33) H Alkaline Phosphatase 105 U/L (35-104) H C-Reactive Protein, Quantitative 6.5 mg/dL (< 0.5) H Total Protein 6.0 g/dL (6.6-8.7) L Albumin 2.6 g/dL (3.5-5.2) L Globulin 3.4 g/dL Albumin/Globulin Ratio 0.7 (1.0-2.7) L Amylase Level 110 U/L (10-110) Lipase 464 U/L (< 60) H Vitamin B12 Level 812 pg/mL (211-946) Folate Pending Thyroid Stimulating Hormone (TSH) 1.450 uIU/mL (0.300-4.500) Current Medications Medications (Trade) Dose Ordered Sig/Payam Route PRN Reason Start Time Stop Time Status Last Admin Dose Admin Acetaminophen (Tylenol) 650 mg Q4H PRN ORAL fever 12/16/16 19:30 01/15/17 19:29 UNV Al Hydroxide/Mg Hydroxide (Mylanta II) 30 ml Q6H PRN ORAL dyspepsia 12/16/16 19:30 01/15/17 19:29 UNV Cefepime HCl 1 gm/ Dextrose 55 ml @ 110 mls/hr Q24H IVPB 12/17/16 03:00 12/24/16 02:59 UNV Chlordiazepoxide (Librium) 25 mg Q6H PRN ORAL Agitation 12/16/16 19:45 12/23/16 19:44 UNV Clindamycin HCl/ Dextrose 50 ml @ 100 mls/hr Q8HR@0300,1100,1900 IV 12/16/16 19:00 12/23/16 18:59 UNV Dextrose (Dextrose 50%) STAT PRN IV Hypoglycemia 12/16/16 19:45 01/15/17 19:44 UNV Dextrose/Sodium Chloride 1,000 ml @ 100 mls/hr Q10H IV 12/16/16 17:00 01/15/17 16:59 UNV Diphenhydramine HCl (Benadryl) 25 mg Q6H PRN IVP Itching/Pruritis 12/16/16 22:45 01/15/17 22:44 UNV Folic Acid 1 mg/ Magnesium Sulfate 2000 mg/ Multivitamins 10 ml/Sodium Chloride 1,014.2 ml @ 124.876 mls/hr Q24H IV 12/16/16 23:00 01/15/17 22:59 UNV Heparin Sodium (Porcine) (Heparin 5000 units/ml) 5,000 units EVERY 12 HOURS SUBQ 12/16/16 21:00 01/15/17 20:59 UNV Lorazepam (Ativan 2mg/ml 1ml) 2 mg Q1H PRN IV seizures 12/16/16 17:45 12/23/16 17:44 UNV Morphine Sulfate (Morphine Sulfate) 1 mg Q4H PRN IVP For Pain 4-10 12/16/16 19:45 12/23/16 19:44 UNV Ondansetron HCl (Zofran) 4 mg Q6H PRN IVP Nausea & Vomiting 12/16/16 19:45 01/15/17 19:44 UNV Polyethylene Glycol (Miralax) 17 gm HSPRN PRN ORAL Constipation 12/16/16 19:45 01/15/17 19:44 UNV Thiamine HCl/ Dextrose (Vitamin B1/D5W) 56 ml @ 112 mls/hr Q24H IVPB 12/16/16 23:00 01/15/17 22:59 UNV Zolpidem Tartrate (Ambien) 5 mg HSPRN PRN ORAL Insomnia 12/16/16 19:45 01/15/17 19:44 UNV Brandan Rubin M.D. Dec 16, 2016 17:13
[2016-12-16] MEDS ORDERED: Miralax 17gm pkt ORAL PRN (17:30)
[2016-12-16] MEDS ORDERED: Zolpidem 5mg tab ORAL PRN (17:30)
[2016-12-16] MEDS ORDERED: chlordiazePOXIDE 25mg Cap ORAL PRN (17:30)
[2016-12-16] MEDS ORDERED: LORazepam Inj 2mg/ml 1ml IV PRN (18:00)
[2016-12-16 20:00] VITALS: BP 115/63
--- NOTE | 2016-12-16 20:48 | General Progress Note ---
Progress Note Progress Note patient seen at 4 pm today full note dictated HERMINIO SAHA Dec 16, 2016 20:48
[2016-12-16] MEDS: Thiamine HCl 100 MG in D5W 55 ML IVPB SCH (23:09)
[2016-12-16] MEDS: Folic Acid 1 MG, Magnesium Sulfate 2,000 MG, Multivitamin - 12 Injection 10 ML in NS 10... IV SCH (23:09)
--- NOTE | 2016-12-16 23:10 | Cardiology Progress Note ---
Assessment/Plan Assessment/Plan The patient is seen and examined, full consult note will be dictated. Objective Last 24 Hour Vital Signs Date Time Temp Pulse Resp B/P Pulse Ox O2 Delivery O2 Flow Rate FiO2 12/16/16 21:18 97.4 12/16/16 20:00 98.4 119 19 115/63 97 Room Air 12/16/16 16:00 97.4 116 20 126/72 97 Room Air 12/16/16 12:00 97.5 115 20 114/64 96 Room Air 12/16/16 12:00 115 12/16/16 08:00 114 12/16/16 08:00 97.8 116 20 122/77 99 Room Air 12/16/16 04:00 99.1 117 20 119/63 98 Room Air 12/16/16 04:00 116 12/16/16 00:00 97.2 119 20 115/56 100 Room Air 12/16/16 00:00 119 Intake and Output 12/15/16 12/16/16 19:00 07:00 Intake Total 820 ml 224.876 ml Output Total 150 ml Balance 670 ml 224.876 ml Intake Oral 370 ml IV Total 450 ml 224.876 ml Output Urine Total 150 ml # Voids 2 1 Laboratory Tests Test 12/16/16 08:30 12/16/16 08:45 Urine Osmolality 635 mOsm/kg (429-449) H Urine Random Sodium 26 mmol/L Urine Creatinine 106.0 mg/dL White Blood Count 11.9 K/UL (4.8-10.8) #H Red Blood Count 2.46 M/UL (4.20-5.40) L Hemoglobin 9.7 G/DL (12.0-16.0) L Hematocrit 29.7 % (37.0-47.0) L Mean Corpuscular Volume 121 FL (80-99) H Mean Corpuscular Hemoglobin 39.6 PG (27.0-31.0) H Mean Corpuscular Hemoglobin Concent 32.7 G/DL (32.0-36.0) Red Cell Distribution Width 15.8 % (11.6-14.8) H Platelet Count 280 K/UL (150-450) Mean Platelet Volume 5.3 FL (6.5-10.1) L Neutrophils (%) (Auto) % (45.0-75.0) Lymphocytes (%) (Auto) % (20.0-45.0) Monocytes (%) (Auto) % (1.0-10.0) Eosinophils (%) (Auto) % (0.0-3.0) Basophils (%) (Auto) % (0.0-2.0) Differential Total Cells Counted 100 Neutrophils % (Manual) 69 % (45-75) Lymphocytes % (Manual) 12 % (20-45) L Monocytes % (Manual) 12 % (1-10) H Eosinophils % (Manual) 0 % (0-3) Basophils % (Manual) 0 % (0-2) Band Neutrophils 7 % (0-8) Nucleated Red Blood Cells 2 /100 WBC Platelet Estimate Adequate Platelet Morphology Normal Hypochromasia 1+ Anisocytosis 1+ Tear Drop Cells 1+ Hermann Cells 1+ Schistocytes 1+ Erythrocyte Sedimentation Rate 61 MM/HR (0-20) H Reticulocyte Count 2.0 % (0.0-2.0) Prothrombin Time 14.7 SEC (9.30-11.50) H Prothromb Time International Ratio 1.4 (0.9-1.1) H Activated Partial Thromboplast Time 42 SEC (23-33) H Sodium Level 122 mEQ/L (135-145) L Potassium Level 3.7 mEQ/L (3.4-4.9) Chloride Level 88 mEQ/L (98-107) L Carbon Dioxide Level 19 mEQ/L (20-30) L Anion Gap 15 (5-15) Blood Urea Nitrogen 29 mg/dL (7-23) H Creatinine 1.0 mg/dL (0.5-0.9) H Estimat Glomerular Filtration Rate > 60 mL/min (>60) Glucose Level 116 mg/dL (74-106) H Osmolality 281 mOsm/kg (297-317) L Calcium Level 8.3 mg/dL (8.6-10.2) L Phosphorus Level 1.2 mg/dL (2.5-4.8) L Magnesium Level 2.6 mg/dL (1.7-2.5) H Iron Level 133 ug/dL (37-145) Total Iron Binding Capacity 174 ug/dL (250-400) L Percent Iron Saturation 76 % (15-50) H Unsaturated Iron Binding 41 ug/dL (112-346) L Ferritin > 2000 ng/mL (13-150) H Total Bilirubin 2.0 mg/dL (0.0-1.2) H Direct Bilirubin 1.5 mg/dL (0.1-0.3) H Aspartate Amino Transf (AST/SGOT) 222 U/L (5-40) H Alanine Aminotransferase (ALT/SGPT) 122 U/L (3-33) H Alkaline Phosphatase 105 U/L (35-104) H C-Reactive Protein, Quantitative 6.5 mg/dL (< 0.5) H Total Protein 6.0 g/dL (6.6-8.7) L Albumin 2.6 g/dL (3.5-5.2) L Globulin 3.4 g/dL Albumin/Globulin Ratio 0.7 (1.0-2.7) L Amylase Level 110 U/L (10-110) Lipase 464 U/L (< 60) H Vitamin B12 Level 812 pg/mL (211-946) Folate Pending Thyroid Stimulating Hormone (TSH) 1.450 uIU/mL (0.300-4.500) Microbiology Date/Time Source Procedure Growth Status 12/14/16 16:40 Blood Blood Culture - Preliminary NO GROWTH AFTER 24 HOURS Resulted 12/14/16 16:20 Blood Blood Culture - Preliminary NO GROWTH AFTER 24 HOURS Resulted 12/15/16 16:00 Urine,Clean Catch Urine Culture - Preliminary NO GROWTH Resulted 12/14/16 15:50 Urine,Clean Catch Urine Culture - Preliminary Gram Negative Bacillus 1 Gram Negative Bacillus 2 Resulted MARYA LOYOLA Dec 16, 2016 23:10
[2016-12-16] MEDS: Mylanta II UD 30ml ORAL PRN (23:36)
[2016-12-17] VITALS: BP 103/60
--- NOTE | 2016-12-17 01:30 | Consultation ---
DATE OF CONSULTATION: ADDENDUM PHYSICAL EXAMINATION: HEAD AND NECK: No JVP. No LAD. No thyromegaly. Extraocular movements intact. Pupils are reactive to light and accommodation. LUNGS: Decreased breathing sounds on both sides. CARDIAC: Regular rate and rhythm. S1 and S2. No murmur. No rub. ABDOMEN: Hidradenitis drainage and also something on her right . EXTREMITIES: No edema. No clubbing. No cyanosis. NEUROLOGIC: Cranial nerves II to XII within normal limits. Extraocular movements are intact. LABORATORY VALUES: On admission, the patient is found to have a WBC count of 8.5, hemoglobin of 11.6, hematocrit of 35, and platelet count of 322,000. Chemistry reveals sodium of 118, potassium 4.1, chloride 81, bicarbonate of 30, BUN of 28, creatinine of 1.4, and calcium was 9. AST of 374, ALT of 165, total bilirubin of 1.4, and alkaline phosphatase of 110. UA revealed specific gravity of 1.020, protein 4+, ketones 3+, occult blood 5+, positive leukocyte esterase, WBC too many to count, and RBCs too many to count. Urine sodium was 22. Urine osmolality 634. Urine creatine of 106. The patient's urine toxicology was positive for opiates. ASSESSMENT: 1. Hypovolemic hyponatremia based _on the urine studies, high specific gravity. The patient definitely has some degree of hypovolemic hyponatremia. 2. Severe acidosis, which at this point is improving. 3. Acute renal failure. 4. Acute tubular necrosis. 5. Severe malnutrition. 6. Hypocalcemia. 8. Alcoholic hepatitis. 9. Severe adenitis under the arm and abdominal wall . PLAN: Plan for the patient, broad-spectrum antibiotic, D5 NS, monitoring renal function and electrolytes closely. Replace electrolytes as needed. Avoid any NSAID or nephrotoxics. Again, I would like to thank, Dr. Franky lOvera, for allowing me to participate in the care of this patient. Yane Moore M.D. DR: VINICIO JOB#: [id number] CC: RONDA
[2016-12-17] MEDS: Morphine Sulfate 2mg/ml Inj IVP PRN ×6 (01:39→23:26)
[2016-12-17] MEDS: Cefepime HCl 1 GM in D5W 55 ML IVPB SCH (03:00)
[2016-12-17] MEDS: Clindamycin 600mg 50 ML IV SCH ×3 (03:36→19:01)
[2016-12-17 04:00] VITALS: BP 93/57
[2016-12-17] MEDS: D5NS 1,000 ML IV SCH ×2 (04:00→14:27)
[2016-12-17 08:00] VITALS: BP 96/55
--- NOTE | 2016-12-17 08:04 | General Progress Note ---
Assessment/Plan Problem List: (1) Macrocytic anemia ICD Codes: D53.9 - Nutritional anemia, unspecified SNOMED: 27646245 (2) Fatty liver ICD Codes: K76.0 - Fatty (change of) liver, not elsewhere classified SNOMED: 592272389 (3) Acute pancreatitis ICD Codes: K85.90 - Acute pancreatitis without necrosis or infection, unspecified SNOMED: 233942583 (4) Alcoholic pancreatitis ICD Codes: K85.20 - Alcohol induced acute pancreatitis without necrosis or infection SNOMED: 725966029 (5) Anxiety ICD Codes: F41.9 - Anxiety disorder, unspecified SNOMED: 51367437 (6) Hyponatremia ICD Codes: E87.1 - Hypo-osmolality and hyponatremia SNOMED: 88792281 (7) Alcoholic hepatitis ICD Codes: K70.10 - Alcoholic hepatitis without ascites SNOMED: 846869392 Assessment/Plan tolerating diet fu labs discreminating factor calculated at 19 so no need for steroids ? needs psysh eval Subjective ROS Limited/Unobtainable: Yes Allergies: Coded Allergies: IBUPROFEN (Verified Allergy, Severe, Anaphylaxis, 06/12/16) swollen face and lips NSAIDS (NON-STEROIDAL ANTI-INFLAMMA (Verified Allergy, Severe, Anaphylaxis , 06/12/16) swollen face and lips Uncoded Allergies: NSAIDS include Ibuprofen (Adverse Reaction, Severe, Anaphylaxis, 06/11/16) Swollen face and lip Subjective c/o abd pain Objective Last 24 Hour Vital Signs Date Time Temp Pulse Resp B/P Pulse Ox O2 Delivery O2 Flow Rate FiO2 12/17/16 04:00 97.5 99 20 93/57 96 Room Air 12/17/16 00:00 98.4 113 19 103/60 92 Room Air 12/16/16 23:50 113 103/60 12/16/16 21:18 97.4 12/16/16 20:00 98.4 119 19 115/63 97 Room Air 12/16/16 16:00 97.4 116 20 126/72 97 Room Air 12/16/16 12:00 97.5 115 20 114/64 96 Room Air 12/16/16 12:00 115 Intake and Output 12/16/16 12/17/16 19:00 07:00 Intake Total 950 ml 1516.256 ml Output Total 600 ml Balance 950 ml 916.256 ml IV Total 950 ml 1516.256 ml Output Urine Total 600 ml # Voids 2 Laboratory Tests 12/16/16 08:30: Urine Osmolality 635H, Urine Random Sodium 26, Urine Creatinine 106.0 12/16/16 08:45: White Blood Count 11.9#H, Red Blood Count 2.46L, Hemoglobin 9.7L, Hematocrit 29.7L, Mean Corpuscular Volume 121H, Mean Corpuscular Hemoglobin 39.6H, Mean Corpuscular Hemoglobin Concent 32.7, Red Cell Distribution Width 15.8H, Platelet Count 280, Mean Platelet Volume 5.3L, Neutrophils (%) (Auto) , Lymphocytes (%) (Auto) , Monocytes (%) (Auto) , Eosinophils (%) (Auto) , Basophils (%) (Auto) , Differential Total Cells Counted 100, Neutrophils % ( Manual) 69, Lymphocytes % (Manual) 12L, Monocytes % (Manual) 12H, Eosinophils % (Manual) 0, Basophils % (Manual) 0, Band Neutrophils 7, Nucleated Red Blood Cells 2, Platelet Estimate Adequate, Platelet Morphology Normal, Hypochromasia 1 +, Anisocytosis 1+, Tear Drop Cells 1+, [place] Cells 1+, Schistocytes 1+, Erythrocyte Sedimentation Rate 61H, Reticulocyte Count 2.0, Prothrombin Time 14.7H, Prothromb Time International Ratio 1.4H, Activated Partial Thromboplast Time 42H, Sodium Level 122L, Potassium Level 3.7, Chloride Level 88L, Carbon Dioxide Level 19L, Anion Gap 15, Blood Urea Nitrogen 29H, Creatinine 1.0H, Estimat Glomerular Filtration Rate > 60, Glucose Level 116H, Osmolality 281L, Calcium Level 8.3L, Phosphorus Level 1.2L, Magnesium Level 2.6H, Iron Level 133 , Total Iron Binding Capacity 174L, Percent Iron Saturation 76H, Unsaturated Iron Binding 41L, Ferritin > 2000H, Total Bilirubin 2.0H, Direct Bilirubin 1.5H , Aspartate Amino Transf (AST/SGOT) 222H, Alanine Aminotransferase (ALT/SGPT) 122H, Alkaline Phosphatase 105H, C-Reactive Protein, Quantitative 6.5H, Total Protein 6.0L, Albumin 2.6L, Globulin 3.4, Albumin/Globulin Ratio 0.7L, Amylase Level 110, Lipase 464H, Vitamin B12 Level 812, Folate [Pending], Thyroid Stimulating Hormone (TSH) 1.450 12/17/16 06:30: White Blood Count [Pending], Red Blood Count [Pending], Hemoglobin [Pending], Hematocrit [Pending], Mean Corpuscular Volume [Pending], Mean Corpuscular Hemoglobin [Pending], Mean Corpuscular Hemoglobin Concent [Pending], Red Cell Distribution Width [Pending], Platelet Count [Pending], Mean Platelet Volume [ Pending], Neutrophils (%) (Auto) [Pending], Lymphocytes (%) (Auto) [Pending], Monocytes (%) (Auto) [Pending], Eosinophils (%) (Auto) [Pending], Basophils (%) (Auto) [Pending], Sodium Level [Pending], Potassium Level [Pending], Chloride Level [Pending], Carbon Dioxide Level [Pending], Blood Urea Nitrogen [Pending], Creatinine [Pending], Estimat Glomerular Filtration Rate [Pending], Glucose Level [Pending], Calcium Level [Pending], Total Bilirubin [Pending], Aspartate Amino Transf (AST/SGOT) [Pending], Alanine Aminotransferase (ALT/SGPT) [Pending] , Alkaline Phosphatase [Pending], Total Protein [Pending], Albumin [Pending], Globulin [Pending], Lipase [Pending] Height (Feet): 5 Height (Inches): 6.00 Weight (Pounds): 217 General Appearance: alert EENT: normal ENT inspection Neck: supple Cardiovascular: normal rate Respiratory/Chest: lungs clear Abdomen: normal bowel sounds, hypoactive bowel sounds, tender Extremities: non-tender VIDAL ROBERTS Dec 17, 2016 08:04
[2016-12-17 08:07] LABS: MEAN CORPUSCULAR HEMOGLOBIN 39.7 PG (27.0-31.0); MEAN CORPUSCULAR HGB CONC 32.7 G/DL (32.0-36.0); MEAN CORPUSCULAR VOLUME 121 FL (80-99); MEAN PLATELET VOLUME 5.5 FL (6.5-10.1); PLATELET COUNT 256 K/UL (150-450); RED BLOOD COUNT 2.22 M/UL (4.20-5.40); RED CELL DISTRIBUTION WIDTH 15.9 % (11.6-14.8); WHITE BLOOD COUNT 11.1 K/UL (4.8-10.8)
[2016-12-17] MEDS: DiphenhydrAMINE 50mg/ml Inj IVP PRN ×3 (08:43→23:25)
[2016-12-17] MEDS: Heparin 5000 units/ml inj SUBQ SCH ×2 (08:45→20:36)
--- NOTE | 2016-12-17 08:45 | Consultation ---
DATE OF CONSULTATION: 12/16/2016 CARDIOLOGY CONSULTATION REFERRING PHYSICIAN: Franky Olvera D.O. REASON FOR CONSULTATION: Management of tachycardia. HISTORY OF PRESENT ILLNESS: The patient is a very unfortunate 41-year-old female, who presents to the hospital with shortness of breath as well as chest pain this has been going on for the past few days. The patient has history of alcohol abuse, that has been going on for about two days. She has history of chronic alcoholism. At the time of arrival to the hospital, blood pressure was 152/89 and heart rate was 103. A 12-lead electrocardiogram in the emergency department showed sinus tachycardia at 110 with possible septal infarct, age indeterminate. There was no ST and T-wave abnormalities. Her initial troponin I level was negative. She was admitted to the hospital with acute pancreatitis and shortness of breath. PAST MEDICAL HISTORY: Hidradenitis suppurativa, history of chronic alcoholism, and history of gastroesophageal reflux disease. PAST SURGICAL HISTORY: Unknown. MEDICATIONS: List of medication includes clindamycin 450 mg q.8 h., Colace 100 mg three times daily, folic acid 1 mg p.o. daily, [place] 5/325 mg one tablet q.4 h. p.r.n. pain, and Levaquin 500 mg p.o. daily. ALLERGIES: Nonsteroidal anti-inflammatory drugs. SOCIAL HISTORY: She lives at home alone. Drinks alcohol on average daily and no history of tobacco or illicit drug use. REVIEW OF SYSTEMS: A 12-system review done essentially negative except what is mentioned in the history of present illness. PHYSICAL EXAMINATION: GENERAL: This is a very unfortunate 41-year-old female, in no apparent respiratory distress. VITAL SIGNS: Blood pressure is 152/89, pulse of 103, respirations 16, temperature 99.2 degrees Fahrenheit, and O2 saturation 98% on room air. HEENT: Atraumatic and normocephalic. Pupils are equal, round, and reactive to light and accommodation. Extraocular muscles intact. NECK: JVP is 5 centimeter. No carotid bruit. Carotid upstrokes 2+ bilaterally. CARDIOVASCULAR: Normal S1 and S2. Regular rate and rhythm. Tachycardic. No murmurs, gallops, or rubs. LUNGS: Clear to auscultation bilaterally. The patient has no wheezing. ABDOMEN: Soft, nontender, and nondistended. No hepatosplenomegaly. Positive bowel sounds. EXTREMITIES: There is swelling, erythema, and discharge from the axillary area, right greater than left. There is no edema, clubbing or cyanosis on the lower extremities. LABORATORY AND DIAGNOSTIC DATA: Sodium 122, potassium 5.8, chloride 97, bicarbonate 9, BUN 25, creatinine 1.9 and glucose 65. Lactic acid is 13.3. Calcium 11.8. Anion gap of 36. Troponin I less than 0.3. Lipase is 1939. WBC was 8.5, hemoglobin 11.6, hematocrit 35.0 and platelet count 322,000. INR was 1.4. Toxicology showed opiate in the urine. Serum alcohol less than 10. ASSESSMENT AND PLAN: The patient is a very unfortunate 41-year-old female, seen in Cardiology consultation at the request of Dr. Olvera. 1. Sinus tachycardia, likely secondary to systemic inflammatory response disease/acute pancreatitis. The treatment of this condition is underlying disorder. We will continue to monitor the patient's hemodynamics. 2. History of chronic alcoholism. 3. History of anion gap acidosis. I would like to thank, Dr. Olvera, for allowing me to participate in the care of this patient. Ritchie Melendez M.D. DR: WILBERTO JOB#: [id number] CC:
--- NOTE | 2016-12-17 08:49 | General Progress Note ---
Assessment/Plan Problem List: (1) Acute alcohol intoxication ICD Codes: F10.129 - Alcohol abuse with intoxication, unspecified SNOMED: 35041761 (2) Severe anemia ICD Codes: D64.9 - Anemia, unspecified SNOMED: 635444862 (3) Weak ICD Codes: R53.1 - Weakness SNOMED: 52221636 (4) Abdominal pain ICD Codes: R10.9 - Unspecified abdominal pain SNOMED: 66792027 (5) Hydradenitis ICD Codes: L73.2 - Hidradenitis suppurativa SNOMED: 96326385 (6) Sepsis ICD Codes: A41.9 - Sepsis, unspecified organism SNOMED: 61375194 (7) UTI (urinary tract infection) ICD Codes: N39.0 - Urinary tract infection, site not specified SNOMED: 67348776 (8) Acute pancreatitis ICD Codes: K85.90 - Acute pancreatitis without necrosis or infection, unspecified SNOMED: 034132674 (9) Generalized weakness ICD Codes: R53.1 - Weakness SNOMED: 04094482 Status: stable, progressing, tolerating diet Assessment/Plan ot pt diet detox pain control abx cbc bmp am Subjective Constitutional: Reports: weakness Allergies: Coded Allergies: IBUPROFEN (Verified Allergy, Severe, Anaphylaxis, 06/12/16) swollen face and lips NSAIDS (NON-STEROIDAL ANTI-INFLAMMA (Verified Allergy, Severe, Anaphylaxis , 06/12/16) swollen face and lips Uncoded Allergies: NSAIDS include Ibuprofen (Adverse Reaction, Severe, Anaphylaxis, 06/11/16) Swollen face and lip All Systems: reviewed and negative except above Subjective sl nausea Objective Last 24 Hour Vital Signs Date Time Temp Pulse Resp B/P Pulse Ox O2 Delivery O2 Flow Rate FiO2 12/17/16 08:00 98.2 99 21 96/55 96 Room Air 12/17/16 07:10 98.4 12/17/16 06:00 99 93/57 12/17/16 04:00 97.5 99 20 93/57 96 Room Air 12/17/16 00:00 98.4 113 19 103/60 92 Room Air 12/16/16 23:50 113 103/60 12/16/16 20:00 98.4 119 19 115/63 97 Room Air 12/16/16 16:00 97.4 116 20 126/72 97 Room Air 12/16/16 12:00 97.5 115 20 114/64 96 Room Air 12/16/16 12:00 115 Intake and Output 12/16/16 12/17/16 19:00 07:00 Intake Total 950 ml 1516.256 ml Output Total 600 ml Balance 950 ml 916.256 ml IV Total 950 ml 1516.256 ml Output Urine Total 600 ml # Voids 2 Laboratory Tests 12/17/16 06:30: White Blood Count 11.1H, Red Blood Count 2.22L, Hemoglobin 8.8L, Hematocrit 26.9L, Mean Corpuscular Volume 121H, Mean Corpuscular Hemoglobin 39.7H, Mean Corpuscular Hemoglobin Concent 32.7, Red Cell Distribution Width 15.9H, Platelet Count 256, Mean Platelet Volume 5.5L, Neutrophils (%) (Auto) , Lymphocytes (%) (Auto) , Monocytes (%) (Auto) , Eosinophils (%) (Auto) , Basophils (%) (Auto) , Neutrophils % (Manual) [Pending], Lymphocytes % (Manual) [Pending], Platelet Estimate [Pending], Platelet Morphology [Pending], Sodium Level [Pending], Potassium Level [Pending], Chloride Level [Pending], Carbon Dioxide Level [Pending], Blood Urea Nitrogen [Pending], Creatinine [Pending], Estimat Glomerular Filtration Rate [Pending], Glucose Level [Pending], Calcium Level [Pending], Total Bilirubin [Pending], Aspartate Amino Transf (AST/SGOT) [ Pending], Alanine Aminotransferase (ALT/SGPT) [Pending], Alkaline Phosphatase [ Pending], Total Protein [Pending], Albumin [Pending], Globulin [Pending], Lipase [Pending] Height (Feet): 5 Height (Inches): 6.00 Weight (Pounds): 217 General Appearance: lethargic EENT: normal ENT inspection Neck: normal alignment Cardiovascular: normal peripheral pulses, normal rate, regular rhythm Respiratory/Chest: chest wall non-tender, lungs clear, normal breath sounds Abdomen: normal bowel sounds, non tender, soft Extremities: normal inspection Edema: no edema noted Arm (L), no edema noted Arm (R), no edema noted Leg (L), no edema noted Leg (R), no edema noted Pedal (L), no edema noted Pedal (R), no edema noted Generalized Neurologic: responsive, motor weakness Skin: normal pigmentation, warm/dry PIETER GAUTHIER Dec 17, 2016 08:49
[2016-12-17 08:50] LABS: ALANINE AMINOTRANSFERASE 157 U/L (3-33); ALBUMIN/GLOBULIN RATIO 0.7 (1.0-2.7); ANION GAP 13 (5-15); ASPARTATE AMINO TRANSFERASE 343 U/L (5-40); CALCIUM 7.7 mg/dL (8.6-10.2); CARBON DIOXIDE 22 mEQ/L (20-30); CHLORIDE 94 mEQ/L (98-107); CREATININE 0.7 mg/dL (0.5-0.9); GLOMERULAR FILTRATION RATE > 60 mL/min (>60); HEMOLYSIS 4; LIPASE 186 U/L (< 60); POTASSIUM 3.2 mEQ/L (3.4-4.9); SODIUM 129 mEQ/L (135-145); TOTAL PROTEIN 5.6 g/dL (6.6-8.7)
[2016-12-17 09:14] LABS: BILIRUBIN,DIRECT 1.6 mg/dL (0.1-0.3)
[2016-12-17 10:11] LABS: BAND NEUTROPHILS % (MANUAL) 0 % (0-8); BASOPHILS % (MANUAL) 0 % (0-2); EOSINOPHILS % (MANUAL) 3 % (0-3); LYMPHOCYTES % (MANUAL) 12 % (20-45); NEUTROPHILS % (MANUAL) 75 % (45-75); PLATELET ESTIMATE ADEQUATE; TOTAL CELLS COUNTED 100
[2016-12-17 10:12] LABS: HYPOCHROMASIA 1+; MACROCYTES 1+; POIKILOCYTOSIS 1+
[2016-12-17 10:13] LABS: ANISOCYTOSIS 1+; PLATELET MORPHOLOGY NORMAL; STOMATOCYTES 1+
[2016-12-17] MEDS: Mylanta II UD 30ml ORAL PRN (10:49)
--- NOTE | 2016-12-17 10:56 | Pulmonology Progress Note ---
Assessment/Plan Assessment/Plan ASSESSMENT sepsis UTI with Klebsiella Hydradenitis ( R axilla, perineal area, abdominal folds) alcoholic pancreatitis alcoholic liver disease fatty liver ETOH dependency with withdrawal macrocytic anemia anemia of chronic disease acute hypovolemic hypo Na severe metabolic acidosis with elevated anion gap- resolved acute renal failure-resolved sinus tachycardia-resolved morbid obesity PLAN OF CARE MS floor banana bag Librium prn for withdrawal Ativan prn for seizures withdrawal IVF with NS nephro follows Na trending up replace K creat down to normal abx, ID follows urine cx + Klebsiella, repeated x 2 + yeast blood cx negative ammonia-26 , WNL abdominal US with evidence of enlarged fatty liver, no gallstones, no dilated ducts trend LFT , remain high hepatitis panel negative urine tox screen + opiates trend lipase (1929---186) anemia w/up noted, c/w anemia of chronic disease ( due to ETOH abuse) and macrocytic anemia, high ferritin, stable B12 and folate cardio follows ST was due to underlying infection, on Cardizem and propanol, ST resolved wound care as per wound nurse recommendations DVT prophylaxis plan tomorrow to dc banana bag and change to oral Thiamine and Folate case discussed and evaluated by supervising physician Subjective Allergies: Coded Allergies: IBUPROFEN (Verified Allergy, Severe, Anaphylaxis, 06/12/16) swollen face and lips NSAIDS (NON-STEROIDAL ANTI-INFLAMMA (Verified Allergy, Severe, Anaphylaxis , 06/12/16) swollen face and lips Uncoded Allergies: NSAIDS include Ibuprofen (Adverse Reaction, Severe, Anaphylaxis, 06/11/16) Swollen face and lip Subjective afebrile, mild leukocytosis no signs of respiratory distress denies chest pain, SOB admits to intermittent abdominal discomfort Objective Last 24 Hour Vital Signs Date Time Temp Pulse Resp B/P Pulse Ox O2 Delivery O2 Flow Rate FiO2 12/17/16 08:00 98.2 99 21 96/55 96 Room Air 12/17/16 07:10 98.4 12/17/16 06:00 99 93/57 12/17/16 04:00 97.5 99 20 93/57 96 Room Air 12/17/16 00:00 98.4 113 19 103/60 92 Room Air 12/16/16 23:50 113 103/60 12/16/16 20:00 98.4 119 19 115/63 97 Room Air 12/16/16 16:00 97.4 116 20 126/72 97 Room Air 12/16/16 12:00 97.5 115 20 114/64 96 Room Air 12/16/16 12:00 115 Intake and Output 12/16/16 12/17/16 19:00 07:00 Intake Total 950 ml 1516.256 ml Output Total 600 ml Balance 950 ml 916.256 ml IV Total 950 ml 1516.256 ml Output Urine Total 600 ml # Voids 2 General Appearance: other - awale, alert, responsive, morbidly obese AA female HEENT: normocephalic, atraumatic, anicteric, mucous membranes moist, PERRL Respiratory/Chest: no respiratory distress, no accessory muscle use, decreased breath sounds Cardiovascular: normal peripheral pulses, normal rate, no gallop/murmur, no JVD Abdomen: normal bowel sounds, soft, non tender - obese Genitourinary: normal external genitalia Extremities: no edema Skin: other - hidradenitis drainage R axilla, perineal area and abdominal folds Neurologic/Psychiatric: no motor/sensory deficits, alert, responsive Lymphatic: no neck adenopathy Musculoskeletal: normal muscle bulk Microbiology Date/Time Source Procedure Growth Status 12/14/16 16:40 Blood Blood Culture - Preliminary NO GROWTH AFTER 24 HOURS Resulted 12/14/16 16:20 Blood Blood Culture - Preliminary NO GROWTH AFTER 24 HOURS Resulted 12/16/16 08:30 Urine,Clean Catch Urine Culture - Preliminary Yeast Species Resulted 12/15/16 16:00 Urine,Clean Catch Urine Culture - Preliminary Yeast Species Resulted 12/14/16 15:50 Urine,Clean Catch Urine Culture - Final Klebsiella Pneumoniae Complete 12/16/16 05:30 Abdomen Gram Stain Pending Resulted 12/16/16 05:30 Abdomen Wound Culture - Preliminary NO GROWTH AFTER 24 HOURS Resulted Laboratory Tests 12/17/16 06:30: White Blood Count 11.1H, Red Blood Count 2.22L, Hemoglobin 8.8L, Hematocrit 26.9L, Mean Corpuscular Volume 121H, Mean Corpuscular Hemoglobin 39.7H, Mean Corpuscular Hemoglobin Concent 32.7, Red Cell Distribution Width 15.9H, Platelet Count 256, Mean Platelet Volume 5.5L, Neutrophils (%) (Auto) , Lymphocytes (%) (Auto) , Monocytes (%) (Auto) , Eosinophils (%) (Auto) , Basophils (%) (Auto) , Differential Total Cells Counted 100, Neutrophils % ( Manual) 75, Lymphocytes % (Manual) 12L, Monocytes % (Manual) 10, Eosinophils % ( Manual) 3, Basophils % (Manual) 0, Band Neutrophils 0, Platelet Estimate Adequate, Platelet Morphology Normal, Hypochromasia 1+, Poikilocytosis 1+, Anisocytosis 1+, Macrocytosis 1+, Stomatocytes 1+, Sodium Level 129L, Potassium Level 3.2L, Chloride Level 94L, Carbon Dioxide Level 22, Anion Gap 13, Blood Urea Nitrogen 23, Creatinine 0.7, Estimat Glomerular Filtration Rate > 60, Glucose Level 113H, Calcium Level 7.7L, Total Bilirubin 2.1H, Direct Bilirubin 1.6H, Aspartate Amino Transf (AST/SGOT) 343H, Alanine Aminotransferase (ALT/SGPT ) 157H, Alkaline Phosphatase 194H, Total Protein 5.6L, Albumin 2.4L, Globulin 3.2, Albumin/Globulin Ratio 0.7L, Lipase 186H Current Medications Medications (Trade) Dose Ordered Sig/Payam Route PRN Reason Start Time Stop Time Status Last Admin Dose Admin Acetaminophen (Tylenol) 650 mg Q4H PRN ORAL fever 12/16/16 17:30 01/15/17 17:29 Al Hydroxide/Mg Hydroxide (Mylanta II) 30 ml Q6H PRN ORAL dyspepsia 12/16/16 17:30 01/15/17 17:29 12/17/16 10:49 Cefepime HCl 1 gm/ Dextrose 55 ml @ 110 mls/hr Q24H IVPB 12/17/16 03:00 12/24/16 02:59 12/17/16 03:00 Chlordiazepoxide (Librium) 25 mg Q6H PRN ORAL Agitation 12/16/16 17:30 12/23/16 17:29 Clindamycin HCl/ Dextrose 50 ml @ 100 mls/hr Q8HR@0300,1100,1900 IV 12/16/16 19:00 12/23/16 18:59 12/17/16 03:36 Dextrose (Dextrose 50%) STAT PRN IV Hypoglycemia 12/16/16 17:30 01/15/17 17:29 Dextrose/Sodium Chloride 1,000 ml @ 100 mls/hr Q10H IV 12/16/16 18:00 01/15/17 17:59 12/16/16 21:04 Diltiazem HCl (Cardizem) 30 mg EVERY 8 HOURS ORAL 12/16/16 23:15 01/15/17 23:14 12/16/16 23:50 Diphenhydramine HCl (Benadryl) 25 mg Q6H PRN IVP Itching/Pruritis/Tongue Swelli 12/16/16 17:30 01/15/17 17:29 12/17/16 08:43 Folic Acid 1 mg/ Magnesium Sulfate 2000 mg/ Multivitamins 10 ml/Sodium Chloride 1,014.2 ml @ 124.876 mls/hr Q24H IV 12/16/16 23:00 01/15/17 22:59 12/16/16 23:09 Heparin Sodium (Porcine) (Heparin 5000 units/ml) 5,000 units EVERY 12 HOURS SUBQ 12/16/16 21:00 01/15/17 20:59 12/17/16 08:45 Lorazepam (Ativan 2mg/ml 1ml) 2 mg Q1H PRN IV seizures 12/16/16 18:00 12/23/16 17:59 Morphine Sulfate (Morphine Sulfate) 1 mg Q4H PRN IVP For Pain 4-10 12/16/16 17:30 12/23/16 17:29 12/17/16 10:40 Ondansetron HCl (Zofran) 4 mg Q6H PRN IVP Nausea & Vomiting 12/16/16 17:30 01/15/17 17:29 Polyethylene Glycol (Miralax) 17 gm HSPRN PRN ORAL Constipation 12/16/16 17:30 01/15/17 17:29 Thiamine HCl/ Dextrose (Vitamin B1/D5W) 56 ml @ 112 mls/hr Q24H IVPB 12/16/16 23:00 01/15/17 22:59 12/16/16 23:09 Zolpidem Tartrate (Ambien) 5 mg HSPRN PRN ORAL Insomnia 12/16/16 17:30 01/15/17 17:29 Juhi Garcia NP ([facility]anchtein) Dec 17, 2016 10:56
[2016-12-17 12:00] VITALS: BP 101/57
--- NOTE | 2016-12-17 13:15 | Nephrology Progress Note ---
Assessment/Plan Assessment 1. Hypovolemic hyponatremia 2. Severe acidosis, which at this point is improving. 3. Acute renal failure. 4. Acute tubular necrosis. 5. Severe malnutrition. 6. Hypocalcemia. . Severe adenitis under the arm and abdominal wall . Plan plan to continue NS.9 monitoring electrolyte avoid NSAID iv antibiotic replace k Subjective Constitutional: Reports: malaise, no symptoms, weakness HEENT: Reports: no symptoms Genitourinary: Reports: no symptoms Neurologic/Psychiatric: Reports: no symptoms Subjective alert and awake c/o ulceration in her mouth and her throat also pain in her under arm and abdomen Objective Objective Last 24 Hour Vital Signs Date Time Temp Pulse Resp B/P Pulse Ox O2 Delivery O2 Flow Rate FiO2 12/17/16 12:00 97.3 74 18 101/57 99 Room Air 12/17/16 11:18 98.2 12/17/16 08:00 98.2 99 21 96/55 96 Room Air 12/17/16 06:00 99 93/57 12/17/16 04:00 97.5 99 20 93/57 96 Room Air 12/17/16 00:00 98.4 113 19 103/60 92 Room Air 12/16/16 23:50 113 103/60 12/16/16 20:00 98.4 119 19 115/63 97 Room Air 12/16/16 16:00 97.4 116 20 126/72 97 Room Air Intake and Output 12/16/16 12/17/16 19:00 07:00 Intake Total 950 ml 1516.256 ml Output Total 600 ml Balance 950 ml 916.256 ml IV Total 950 ml 1516.256 ml Output Urine Total 600 ml # Voids 2 Laboratory Tests 12/17/16 06:30: White Blood Count 11.1H, Red Blood Count 2.22L, Hemoglobin 8.8L, Hematocrit 26.9L, Mean Corpuscular Volume 121H, Mean Corpuscular Hemoglobin 39.7H, Mean Corpuscular Hemoglobin Concent 32.7, Red Cell Distribution Width 15.9H, Platelet Count 256, Mean Platelet Volume 5.5L, Neutrophils (%) (Auto) , Lymphocytes (%) (Auto) , Monocytes (%) (Auto) , Eosinophils (%) (Auto) , Basophils (%) (Auto) , Differential Total Cells Counted 100, Neutrophils % ( Manual) 75, Lymphocytes % (Manual) 12L, Monocytes % (Manual) 10, Eosinophils % ( Manual) 3, Basophils % (Manual) 0, Band Neutrophils 0, Platelet Estimate Adequate, Platelet Morphology Normal, Hypochromasia 1+, Poikilocytosis 1+, Anisocytosis 1+, Macrocytosis 1+, Stomatocytes 1+, Sodium Level 129L, Potassium Level 3.2L, Chloride Level 94L, Carbon Dioxide Level 22, Anion Gap 13, Blood Urea Nitrogen 23, Creatinine 0.7, Estimat Glomerular Filtration Rate > 60, Glucose Level 113H, Calcium Level 7.7L, Total Bilirubin 2.1H, Direct Bilirubin 1.6H, Aspartate Amino Transf (AST/SGOT) 343H, Alanine Aminotransferase (ALT/SGPT ) 157H, Alkaline Phosphatase 194H, Total Protein 5.6L, Albumin 2.4L, Globulin 3.2, Albumin/Globulin Ratio 0.7L, Lipase 186H Height (Feet): 5 Height (Inches): 6.00 Weight (Pounds): 217 Objective HEAD AND NECK: No JVP. No LAD. No thyromegaly. Extraocular movements intact. Pupils are reactive to light and accommodation. LUNGS: Decreased breathing sounds on both sides. CARDIAC: Regular rate and rhythm. S1 and S2. No murmur. No rub. ABDOMEN: Hidradenitis on right axilla and abdominal wall drainage and EXTREMITIES: No edema. No clubbing. No cyanosis. NEUROLOGIC: Cranial nerves II to XII within normal limits. Extraocular movements are intact. HERMINIO SAHA Dec 17, 2016 13:15
[2016-12-17] MEDS ORDERED: KCl 10% 20 mEq/15ml liquid NG ONE (13:40)
[2016-12-17] MEDS: Propranolol 10mg tab ORAL SCH ×2 (14:33→22:00)
--- NOTE | 2016-12-17 15:06 | Infectious Diseases Prog Note ---
Assessment/Plan Problems: (1) UTI (urinary tract infection) Assessment & Plan: due to yeast and Klebsiella pneumonia , already on cefepime , will add fluconazol for two weeks . (2) Sepsis Assessment & Plan: await blood culture and continue cefepime with clindamycin (3) Acute pancreatitis Assessment & Plan: due to alcohol abuse, continue hydration, and pain management, keep npo, monitor lipase (4) Hidradenitis suppurativa Assessment & Plan: on cefepime and clindamycin , continue local wound care , follow up with general surgery Subjective Constitutional: Reports: anorexia, fatigue HEENT: Reports: no symptoms Respiratory: Reports: dry cough Breasts: Reports: no symptoms Cardiovascular: Reports: no symptoms Gastrointestinal/Abdominal: Reports: bloating, other - abdominal pain Genitourinary: Reports: no symptoms Neurologic: Reports: no symptoms Psychiatric: Reports: no symptoms Skin: Reports: ulcer Endocrine: Reports: no symptoms Hematologic: Reports: no symptoms Allergies: Coded Allergies: IBUPROFEN (Verified Allergy, Severe, Anaphylaxis, 06/12/16) swollen face and lips NSAIDS (NON-STEROIDAL ANTI-INFLAMMA (Verified Allergy, Severe, Anaphylaxis , 06/12/16) swollen face and lips Uncoded Allergies: NSAIDS include Ibuprofen (Adverse Reaction, Severe, Anaphylaxis, 06/11/16) Swollen face and lip Objective Vital Signs Last 24 Hour Vital Signs Date Time Temp Pulse Resp B/P Pulse Ox O2 Delivery O2 Flow Rate FiO2 12/17/16 14:33 74 101/57 12/17/16 12:00 97.3 74 18 101/57 99 Room Air 12/17/16 11:18 98.2 12/17/16 08:00 98.2 99 21 96/55 96 Room Air 12/17/16 06:00 99 93/57 12/17/16 04:00 97.5 99 20 93/57 96 Room Air 12/17/16 00:00 98.4 113 19 103/60 92 Room Air 12/16/16 23:50 113 103/60 12/16/16 20:00 98.4 119 19 115/63 97 Room Air 12/16/16 16:00 97.4 116 20 126/72 97 Room Air Height (Feet): 5 Height (Inches): 6.00 Weight (Pounds): 217 General Appearance: WD/WN, no acute distress HEENT: normocephalic, atraumatic, anicteric, mucous membranes moist, supple, no JVD Respiratory/Chest: chest wall non-tender, normal breath sounds, no respiratory distress, no accessory muscle use, decreased breath sounds Cardiovascular: normal peripheral pulses, normal rate, regular rhythm, no JVD Abdomen: normal bowel sounds, no organomegaly, non distended, no mass, no scars , tender Extremities: no cyanosis, no clubbing Skin: no rash, no lesions, no ulcers Neurologic/Psychiatric: alert, responsive Microbiology Date/Time Source Procedure Growth Status 12/14/16 16:40 Blood Blood Culture - Preliminary NO GROWTH AFTER 48 HOURS Resulted 12/14/16 16:20 Blood Blood Culture - Preliminary NO GROWTH AFTER 48 HOURS Resulted 12/16/16 08:30 Urine,Clean Catch Urine Culture - Preliminary Yeast Species Resulted 12/15/16 16:00 Urine,Clean Catch Urine Culture - Preliminary Yeast Species Resulted 12/14/16 15:50 Urine,Clean Catch Urine Culture - Final Klebsiella Pneumoniae Complete 12/16/16 05:30 Abdomen Gram Stain - Final Resulted 12/16/16 05:30 Abdomen Wound Culture - Preliminary NO GROWTH AFTER 24 HOURS Resulted Laboratory Tests Test 12/17/16 06:30 White Blood Count 11.1 K/UL (4.8-10.8) H Red Blood Count 2.22 M/UL (4.20-5.40) L Hemoglobin 8.8 G/DL (12.0-16.0) L Hematocrit 26.9 % (37.0-47.0) L Mean Corpuscular Volume 121 FL (80-99) H Mean Corpuscular Hemoglobin 39.7 PG (27.0-31.0) H Mean Corpuscular Hemoglobin Concent 32.7 G/DL (32.0-36.0) Red Cell Distribution Width 15.9 % (11.6-14.8) H Platelet Count 256 K/UL (150-450) Mean Platelet Volume 5.5 FL (6.5-10.1) L Neutrophils (%) (Auto) % (45.0-75.0) Lymphocytes (%) (Auto) % (20.0-45.0) Monocytes (%) (Auto) % (1.0-10.0) Eosinophils (%) (Auto) % (0.0-3.0) Basophils (%) (Auto) % (0.0-2.0) Differential Total Cells Counted 100 Neutrophils % (Manual) 75 % (45-75) Lymphocytes % (Manual) 12 % (20-45) L Monocytes % (Manual) 10 % (1-10) Eosinophils % (Manual) 3 % (0-3) Basophils % (Manual) 0 % (0-2) Band Neutrophils 0 % (0-8) Platelet Estimate Adequate Platelet Morphology Normal Hypochromasia 1+ Poikilocytosis 1+ Anisocytosis 1+ Macrocytosis 1+ Stomatocytes 1+ Sodium Level 129 mEQ/L (135-145) L Potassium Level 3.2 mEQ/L (3.4-4.9) L Chloride Level 94 mEQ/L (98-107) L Carbon Dioxide Level 22 mEQ/L (20-30) Anion Gap 13 (5-15) Blood Urea Nitrogen 23 mg/dL (7-23) Creatinine 0.7 mg/dL (0.5-0.9) Estimat Glomerular Filtration Rate > 60 mL/min (>60) Glucose Level 113 mg/dL (74-106) H Calcium Level 7.7 mg/dL (8.6-10.2) L Total Bilirubin 2.1 mg/dL (0.0-1.2) H Direct Bilirubin 1.6 mg/dL (0.1-0.3) H Aspartate Amino Transf (AST/SGOT) 343 U/L (5-40) H Alanine Aminotransferase (ALT/SGPT) 157 U/L (3-33) H Alkaline Phosphatase 194 U/L (35-104) H Total Protein 5.6 g/dL (6.6-8.7) L Albumin 2.4 g/dL (3.5-5.2) L Globulin 3.2 g/dL Albumin/Globulin Ratio 0.7 (1.0-2.7) L Lipase 186 U/L (< 60) H Current Medications Medications (Trade) Dose Ordered Sig/Payam Route PRN Reason Start Time Stop Time Status Last Admin Dose Admin Acetaminophen (Tylenol) 650 mg Q4H PRN ORAL fever 12/16/16 17:30 01/15/17 17:29 Al Hydroxide/Mg Hydroxide (Mylanta II) 30 ml Q6H PRN ORAL dyspepsia 12/16/16 17:30 01/15/17 17:29 12/17/16 10:49 Cefepime HCl 1 gm/ Dextrose 55 ml @ 110 mls/hr Q24H IVPB 12/17/16 03:00 12/24/16 02:59 12/17/16 03:00 Chlordiazepoxide (Librium) 25 mg Q6H PRN ORAL Agitation 12/16/16 17:30 12/23/16 17:29 Clindamycin HCl/ Dextrose 50 ml @ 100 mls/hr Q8HR@0300,1100,1900 IV 12/16/16 19:00 12/23/16 18:59 12/17/16 11:13 Dextrose (Dextrose 50%) STAT PRN IV Hypoglycemia 12/16/16 17:30 01/15/17 17:29 Dextrose/Sodium Chloride 1,000 ml @ 100 mls/hr Q10H IV 12/16/16 18:00 01/15/17 17:59 12/17/16 14:27 Diltiazem HCl (Cardizem) 30 mg EVERY 8 HOURS ORAL 12/16/16 23:15 01/15/17 23:14 12/16/16 23:50 Diphenhydramine HCl (Benadryl) 25 mg Q6H PRN IVP Itching/Pruritis/Tongue Swelli 12/16/16 17:30 01/15/17 17:29 12/17/16 08:43 Folic Acid 1 mg/ Magnesium Sulfate 2000 mg/ Multivitamins 10 ml/Sodium Chloride 1,014.2 ml @ 124.876 mls/hr Q24H IV 12/16/16 23:00 01/15/17 22:59 12/16/16 23:09 Heparin Sodium (Porcine) (Heparin 5000 units/ml) 5,000 units EVERY 12 HOURS SUBQ 12/16/16 21:00 01/15/17 20:59 12/17/16 08:45 Lorazepam (Ativan 2mg/ml 1ml) 2 mg Q1H PRN IV seizures 12/16/16 18:00 12/23/16 17:59 Morphine Sulfate (Morphine Sulfate) 1 mg Q4H PRN IVP For Pain 4-10 12/16/16 17:30 12/23/16 17:29 12/17/16 14:34 Ondansetron HCl (Zofran) 4 mg Q6H PRN IVP Nausea & Vomiting 12/16/16 17:30 01/15/17 17:29 Polyethylene Glycol (Miralax) 17 gm HSPRN PRN ORAL Constipation 12/16/16 17:30 01/15/17 17:29 Propranolol HCl (Inderal) 10 mg Q8HR ORAL 12/17/16 14:00 01/16/17 13:59 12/17/16 14:33 Thiamine HCl/ Dextrose (Vitamin B1/D5W) 56 ml @ 112 mls/hr Q24H IVPB 12/16/16 23:00 01/15/17 22:59 12/16/16 23:09 Zolpidem Tartrate (Ambien) 5 mg HSPRN PRN ORAL Insomnia 12/16/16 17:30 01/15/17 17:29 Brandan Ruibn M.D. Dec 17, 2016 15:06
[2016-12-17 16:00] VITALS: BP 94/62
[2016-12-17] MEDS: Fluconazole 100mg tab ORAL SCH (17:11)
[2016-12-17] MEDS ORDERED: Tubing IV Secondary IV ONE (17:56)
[2016-12-17] MEDS ORDERED: D5NS 1000ml IV ONE (17:56)
[2016-12-17 20:00] VITALS: BP 98/50
--- NOTE | 2016-12-17 23:21 | Cardiology Progress Note ---
Assessment/Plan Assessment/Plan 1. Sinus tachycardia, Possibly due to ETOH withdrawal syndrome vs SIRS due to acute pancreatitis. Treatment is to eliminate the cause. Consider hydration, pain management. Will continue propranolol. 2. SIRS 3. Acute pancreatitis 4. Gap acidosis 5. Hypotension, ?third-spacing, pain meds, DC cardizem. Subjective Subjective Tachycardia was reported by the nurse, propranolol ordered. Not on the telemetry unit. Objective Last 24 Hour Vital Signs Date Time Temp Pulse Resp B/P Pulse Ox O2 Delivery O2 Flow Rate FiO2 12/17/16 22:00 83 98/50 12/17/16 22:00 83 98/50 12/17/16 20:00 97.8 83 20 98/50 92 Room Air 12/17/16 19:32 98.8 12/17/16 16:00 98.8 94 20 94/62 98 Room Air 12/17/16 14:33 74 101/57 12/17/16 12:00 97.3 74 18 101/57 99 Room Air 12/17/16 08:00 98.2 99 21 96/55 96 Room Air 12/17/16 06:00 99 93/57 12/17/16 04:00 97.5 99 20 93/57 96 Room Air 12/17/16 00:00 98.4 113 19 103/60 92 Room Air 12/16/16 23:50 113 103/60 Intake and Output 12/16/16 12/17/16 19:00 07:00 Intake Total 950 ml 1616.256 ml Output Total 600 ml Balance 950 ml 1016.256 ml IV Total 950 ml 1616.256 ml Output Urine Total 600 ml # Voids 2 Laboratory Tests Test 12/17/16 06:30 White Blood Count 11.1 K/UL (4.8-10.8) H Red Blood Count 2.22 M/UL (4.20-5.40) L Hemoglobin 8.8 G/DL (12.0-16.0) L Hematocrit 26.9 % (37.0-47.0) L Mean Corpuscular Volume 121 FL (80-99) H Mean Corpuscular Hemoglobin 39.7 PG (27.0-31.0) H Mean Corpuscular Hemoglobin Concent 32.7 G/DL (32.0-36.0) Red Cell Distribution Width 15.9 % (11.6-14.8) H Platelet Count 256 K/UL (150-450) Mean Platelet Volume 5.5 FL (6.5-10.1) L Neutrophils (%) (Auto) % (45.0-75.0) Lymphocytes (%) (Auto) % (20.0-45.0) Monocytes (%) (Auto) % (1.0-10.0) Eosinophils (%) (Auto) % (0.0-3.0) Basophils (%) (Auto) % (0.0-2.0) Differential Total Cells Counted 100 Neutrophils % (Manual) 75 % (45-75) Lymphocytes % (Manual) 12 % (20-45) L Monocytes % (Manual) 10 % (1-10) Eosinophils % (Manual) 3 % (0-3) Basophils % (Manual) 0 % (0-2) Band Neutrophils 0 % (0-8) Platelet Estimate Adequate Platelet Morphology Normal Hypochromasia 1+ Poikilocytosis 1+ Anisocytosis 1+ Macrocytosis 1+ Stomatocytes 1+ Sodium Level 129 mEQ/L (135-145) L Potassium Level 3.2 mEQ/L (3.4-4.9) L Chloride Level 94 mEQ/L (98-107) L Carbon Dioxide Level 22 mEQ/L (20-30) Anion Gap 13 (5-15) Blood Urea Nitrogen 23 mg/dL (7-23) Creatinine 0.7 mg/dL (0.5-0.9) Estimat Glomerular Filtration Rate > 60 mL/min (>60) Glucose Level 113 mg/dL (74-106) H Calcium Level 7.7 mg/dL (8.6-10.2) L Total Bilirubin 2.1 mg/dL (0.0-1.2) H Direct Bilirubin 1.6 mg/dL (0.1-0.3) H Aspartate Amino Transf (AST/SGOT) 343 U/L (5-40) H Alanine Aminotransferase (ALT/SGPT) 157 U/L (3-33) H Alkaline Phosphatase 194 U/L (35-104) H Total Protein 5.6 g/dL (6.6-8.7) L Albumin 2.4 g/dL (3.5-5.2) L Globulin 3.2 g/dL Albumin/Globulin Ratio 0.7 (1.0-2.7) L Lipase 186 U/L (< 60) H Microbiology Date/Time Source Procedure Growth Status 12/16/16 08:30 Urine,Clean Catch Urine Culture - Preliminary Yeast Species Resulted 12/15/16 16:00 Urine,Clean Catch Urine Culture - Preliminary Yeast Species Resulted 12/16/16 05:30 Abdomen Gram Stain - Final Resulted 12/16/16 05:30 Abdomen Wound Culture - Preliminary NO GROWTH AFTER 24 HOURS Resulted Objective HEENT: Atraumatic and normocephalic. Pupils are equal, round, and reactive to light and accommodation. Extraocular muscles intact. NECK: JVP is 5 centimeter. No carotid bruit. Carotid upstrokes 2+ bilaterally. CARDIOVASCULAR: Normal S1 and S2. Regular rate and rhythm. Tachycardic. No murmurs, gallops, or rubs. LUNGS: Clear to auscultation bilaterally. The patient has no wheezing. ABDOMEN: Soft, nontender, and nondistended. No hepatosplenomegaly. Positive bowel sounds. EXTREMITIES: There is swelling, erythema, and discharge from the axillary area, right greater than left. There is no edema, clubbing or cyanosis on the lower extremities. MARYA LOYOLA Dec 17, 2016 23:21
[2016-12-17] MEDS: Thiamine HCl 100 MG in D5W 55 ML IVPB SCH (23:25)
[2016-12-17] MEDS: Folic Acid 1 MG, Magnesium Sulfate 2,000 MG, Multivitamin - 12 Injection 10 ML in NS 10... IV SCH (23:25)
[2016-12-18] VITALS (7 sets, daily range): BP systolic 86–106; BP diastolic 51–68
[2016-12-18] MEDS: Clindamycin 600mg 50 ML IV SCH ×3 (02:19→18:01)
[2016-12-18] MEDS: Cefepime HCl 1 GM in D5W 55 ML IVPB SCH (02:20)
[2016-12-18] MEDS: Morphine Sulfate 2mg/ml Inj IVP PRN ×4 (03:56→21:42)
[2016-12-18] MEDS: Propranolol 10mg tab ORAL SCH ×3 (05:57→21:23)
[2016-12-18] MEDS: DiphenhydrAMINE 50mg/ml Inj IVP PRN ×2 (06:52→12:58)
--- NOTE | 2016-12-18 07:18 | General Progress Note ---
Assessment/Plan Problem List: (1) Macrocytic anemia ICD Codes: D53.9 - Nutritional anemia, unspecified SNOMED: 53195558 (2) Fatty liver ICD Codes: K76.0 - Fatty (change of) liver, not elsewhere classified SNOMED: 555177564 (3) Acute pancreatitis ICD Codes: K85.90 - Acute pancreatitis without necrosis or infection, unspecified SNOMED: 796039242 (4) Alcoholic pancreatitis ICD Codes: K85.20 - Alcohol induced acute pancreatitis without necrosis or infection SNOMED: 845817925 (5) Anxiety ICD Codes: F41.9 - Anxiety disorder, unspecified SNOMED: 27432657 (6) Hyponatremia ICD Codes: E87.1 - Hypo-osmolality and hyponatremia SNOMED: 77973755 (7) Alcoholic hepatitis ICD Codes: K70.10 - Alcoholic hepatitis without ascites SNOMED: 211456219 Assessment/Plan tolerating diet fu labs discreminating factor calculated at 19 so no need for steroids ? needs psysh eval will start pentoxyphyline Subjective ROS Limited/Unobtainable: Yes Allergies: Coded Allergies: IBUPROFEN (Verified Allergy, Severe, Anaphylaxis, 06/12/16) swollen face and lips NSAIDS (NON-STEROIDAL ANTI-INFLAMMA (Verified Allergy, Severe, Anaphylaxis , 06/12/16) swollen face and lips Uncoded Allergies: NSAIDS include Ibuprofen (Adverse Reaction, Severe, Anaphylaxis, 06/11/16) Swollen face and lip Subjective c/o abd pain Objective Last 24 Hour Vital Signs Date Time Temp Pulse Resp B/P Pulse Ox O2 Delivery O2 Flow Rate FiO2 12/18/16 05:57 84 98/54 12/18/16 04:26 98.1 12/18/16 04:00 97.9 84 20 98/54 100 Room Air 12/18/16 00:00 98.1 94 20 94/59 92 Room Air 12/17/16 22:00 83 98/50 12/17/16 22:00 83 98/50 12/17/16 20:00 97.8 83 20 98/50 92 Room Air 12/17/16 16:00 98.8 94 20 94/62 98 Room Air 12/17/16 14:33 74 101/57 12/17/16 12:00 97.3 74 18 101/57 99 Room Air 12/17/16 08:00 98.2 99 21 96/55 96 Room Air Intake and Output 12/17/16 12/18/16 19:00 07:00 Intake Total 2235 ml 1466.256 ml Balance 2235 ml 1466.256 ml Intake Oral 1160 ml IV Total 1075 ml 1466.256 ml # Voids 8 5 # Bowel Movements 2 Height (Feet): 5 Height (Inches): 6.00 Weight (Pounds): 217 General Appearance: alert EENT: normal ENT inspection Neck: supple Cardiovascular: normal rate Respiratory/Chest: lungs clear Abdomen: normal bowel sounds, tender Extremities: non-tender VIDAL ROBERTS Dec 18, 2016 07:18
[2016-12-18 07:48] LABS: MEAN CORPUSCULAR HEMOGLOBIN 39.1 PG (27.0-31.0); MEAN CORPUSCULAR HGB CONC 32.4 G/DL (32.0-36.0); MEAN CORPUSCULAR VOLUME 121 FL (80-99); MEAN PLATELET VOLUME 5.1 FL (6.5-10.1); PLATELET COUNT 286 K/UL (150-450); RED CELL DISTRIBUTION WIDTH 16.4 % (11.6-14.8); WHITE BLOOD COUNT 9.7 K/UL (4.8-10.8)
[2016-12-18 08:10] LABS: AMMONIA 27 umol/L (11-51)
[2016-12-18 08:25] LABS: ALANINE AMINOTRANSFERASE 310 U/L (3-33); ALBUMIN/GLOBULIN RATIO 0.6 (1.0-2.7); ANION GAP 13 (5-15); ASPARTATE AMINO TRANSFERASE 707 U/L (5-40); CALCIUM 7.7 mg/dL (8.6-10.2); CARBON DIOXIDE 27 mEQ/L (20-30); CHLORIDE 93 mEQ/L (98-107); CREATININE 0.6 mg/dL (0.5-0.9); GLOMERULAR FILTRATION RATE > 60 mL/min (>60); HEMOLYSIS 1; LIPASE 89 U/L (< 60); POTASSIUM 2.8 mEQ/L (3.4-4.9); SODIUM 133 mEQ/L (135-145); TOTAL PROTEIN 6.2 g/dL (6.6-8.7)
[2016-12-18 08:34] LABS: ANISOCYTOSIS 1+; BAND NEUTROPHILS % (MANUAL) 2 % (0-8); BASOPHILS % (MANUAL) 0 % (0-2); EOSINOPHILS % (MANUAL) 1 % (0-3); LYMPHOCYTES % (MANUAL) 18 % (20-45); NEUTROPHILS % (MANUAL) 66 % (45-75); PLATELET ESTIMATE ADEQUATE; PLATELET MORPHOLOGY NORMAL; STOMATOCYTES 1+; TOTAL CELLS COUNTED 100
[2016-12-18 08:35] LABS: HYPOCHROMASIA 1+; SCHISTOCYTES 1+; TEAR DROP CELLS 1+
--- NOTE | 2016-12-18 08:49 | General Progress Note ---
Assessment/Plan Problem List: (1) Acute alcohol intoxication ICD Codes: F10.129 - Alcohol abuse with intoxication, unspecified SNOMED: 26075200 (2) Severe anemia ICD Codes: D64.9 - Anemia, unspecified SNOMED: 814720497 (3) Weak ICD Codes: R53.1 - Weakness SNOMED: 34779280 (4) Abdominal pain ICD Codes: R10.9 - Unspecified abdominal pain SNOMED: 90703289 (5) Hydradenitis ICD Codes: L73.2 - Hidradenitis suppurativa SNOMED: 75843585 (6) Sepsis ICD Codes: A41.9 - Sepsis, unspecified organism SNOMED: 43816010 (7) UTI (urinary tract infection) ICD Codes: N39.0 - Urinary tract infection, site not specified SNOMED: 68428067 (8) Acute pancreatitis ICD Codes: K85.90 - Acute pancreatitis without necrosis or infection, unspecified SNOMED: 035584691 (9) Generalized weakness ICD Codes: R53.1 - Weakness SNOMED: 40938246 Status: unchanged Assessment/Plan ot pt diet detox pain control abx cbc bmp am Subjective Constitutional: Reports: weakness Allergies: Coded Allergies: IBUPROFEN (Verified Allergy, Severe, Anaphylaxis, 06/12/16) swollen face and lips NSAIDS (NON-STEROIDAL ANTI-INFLAMMA (Verified Allergy, Severe, Anaphylaxis , 06/12/16) swollen face and lips Uncoded Allergies: NSAIDS include Ibuprofen (Adverse Reaction, Severe, Anaphylaxis, 06/11/16) Swollen face and lip All Systems: reviewed and negative except above Subjective sl nausea Objective Last 24 Hour Vital Signs Date Time Temp Pulse Resp B/P Pulse Ox O2 Delivery O2 Flow Rate FiO2 12/18/16 05:57 84 98/54 12/18/16 04:26 98.1 12/18/16 04:00 97.9 84 20 98/54 100 Room Air 12/18/16 00:00 98.1 94 20 94/59 92 Room Air 12/17/16 22:00 83 98/50 12/17/16 22:00 83 98/50 12/17/16 20:00 97.8 83 20 98/50 92 Room Air 12/17/16 16:00 98.8 94 20 94/62 98 Room Air 12/17/16 14:33 74 101/57 12/17/16 12:00 97.3 74 18 101/57 99 Room Air Intake and Output 12/17/16 12/18/16 19:00 07:00 Intake Total 2235 ml 1591.132 ml Balance 2235 ml 1591.132 ml Intake Oral 1160 ml IV Total 1075 ml 1591.132 ml # Voids 8 5 # Bowel Movements 2 Laboratory Tests 12/18/16 03:34: Stool Occult Blood [Pending] 12/18/16 04:00: Urine Opiates Screen PositiveH, Urine Barbiturates Screen Negative, Phencyclidine (PCP) Screen Negative, Urine Amphetamines Screen Negative, Urine Benzodiazepines Screen Negative, Urine Cocaine Screen Negative, Urine Marijuana (THC) Screen Negative 12/18/16 06:15: White Blood Count 9.7, Red Blood Count 2.30L, Hemoglobin 9.0L, Hematocrit 27.7L , Mean Corpuscular Volume 121H, Mean Corpuscular Hemoglobin 39.1H, Mean Corpuscular Hemoglobin Concent 32.4, Red Cell Distribution Width 16.4H, Platelet Count 286, Mean Platelet Volume 5.1L, Neutrophils (%) (Auto) , Lymphocytes (%) (Auto) , Monocytes (%) (Auto) , Eosinophils (%) (Auto) , Basophils (%) (Auto) , Differential Total Cells Counted 100, Neutrophils % ( Manual) 66, Lymphocytes % (Manual) 18L, Monocytes % (Manual) 13H, Eosinophils % (Manual) 1, Basophils % (Manual) 0, Band Neutrophils 2, Platelet Estimate Adequate, Platelet Morphology Normal, Hypochromasia 1+, Anisocytosis 1+, Tear Drop Cells 1+, Stomatocytes 1+, Schistocytes 1+, Sodium Level 133L, Potassium Level 2.8L, Chloride Level 93L, Carbon Dioxide Level 27, Anion Gap 13, Blood Urea Nitrogen 16, Creatinine 0.6, Estimat Glomerular Filtration Rate > 60, Glucose Level 109H, Calcium Level 7.7L, Total Bilirubin 2.7H, Direct Bilirubin [ Pending], Aspartate Amino Transf (AST/SGOT) 707H, Alanine Aminotransferase (ALT/ SGPT) 310H, Alkaline Phosphatase 367H, Ammonia 27, Total Protein 6.2L, Albumin 2.5L, Globulin 3.7, Albumin/Globulin Ratio 0.6L, Lipase 89H Height (Feet): 5 Height (Inches): 6.00 Weight (Pounds): 217 General Appearance: lethargic EENT: normal ENT inspection Neck: normal alignment Cardiovascular: normal peripheral pulses, normal rate, regular rhythm Respiratory/Chest: chest wall non-tender, lungs clear, normal breath sounds Abdomen: non tender, soft, hypoactive bowel sounds Extremities: normal inspection Edema: no edema noted Arm (L), no edema noted Arm (R), no edema noted Leg (L), no edema noted Leg (R), no edema noted Pedal (L), no edema noted Pedal (R), no edema noted Generalized Neurologic: responsive, motor weakness Skin: normal pigmentation, warm/dry PIETER GAUTHIER Dec 18, 2016 08:49
[2016-12-18] MEDS: Fluconazole 100mg tab ORAL SCH (09:43)
[2016-12-18] MEDS: Heparin 5000 units/ml inj SUBQ SCH ×2 (09:45→21:22)
[2016-12-18] MEDS: D5NS 1,000 ML IV SCH ×3 (11:19→12:59)
--- NOTE | 2016-12-18 12:10 | Pulmonology Progress Note ---
Assessment/Plan Assessment/Plan ASSESSMENT sepsis UTI with Klebsiella Hydradenitis ( R axilla, perineal area, abdominal folds) alcoholic pancreatitis alcoholic liver disease fatty liver ETOH dependency with withdrawal macrocytic anemia anemia of chronic disease acute hypovolemic hypo Na severe metabolic acidosis with elevated anion gap- resolved acute renal failure-resolved sinus tachycardia-resolved morbid obesity hypokalemia PLAN OF CARE MS floor dc banana bag plain IVF and po Thiamine and Folic acid Librium prn for withdrawal Ativan prn for seizures withdrawal K replaced , check K and Mg i am nephro follows creat down to normal abx, ID follows urine cx + Klebsiella, repeated x 2 + yeast blood cx negative ammonia-26 , WNL abdominal US with evidence of enlarged fatty liver, no gallstones, no dilated ducts trend LFT , remain high with trend up hepatitis panel negative GI follows started on Trental urine tox screen + opiates lipase trending down anemia w/up noted, c/w anemia of chronic disease ( due to ETOH abuse) and macrocytic anemia, high ferritin, stable B12 and folate cardio follows ST was due to underlying infection, on Cardizem and propanol, ST resolved wound care as per wound nurse recommendations DVT, GI prophylaxis case discussed and evaluated by supervising physician Subjective Allergies: Coded Allergies: IBUPROFEN (Verified Allergy, Severe, Anaphylaxis, 06/12/16) swollen face and lips NSAIDS (NON-STEROIDAL ANTI-INFLAMMA (Verified Allergy, Severe, Anaphylaxis , 06/12/16) swollen face and lips Uncoded Allergies: NSAIDS include Ibuprofen (Adverse Reaction, Severe, Anaphylaxis, 06/11/16) Swollen face and lip Subjective afebrile, mild leukocytosis resolved no signs of respiratory distress denies chest pain, SOB admits to intermittent abdominal discomfort Objective Last 24 Hour Vital Signs Date Time Temp Pulse Resp B/P Pulse Ox O2 Delivery O2 Flow Rate FiO2 12/18/16 11:55 97.9 86 16 103/64 100 Room Air 12/18/16 10:14 98.1 12/18/16 09:43 98/54 12/18/16 08:00 97.5 85 16 104/61 100 Room Air 12/18/16 05:57 84 98/54 12/18/16 04:00 97.9 84 20 98/54 100 Room Air 12/18/16 00:00 98.1 94 20 94/59 92 Room Air 12/17/16 22:00 83 98/50 12/17/16 22:00 83 98/50 12/17/16 20:00 97.8 83 20 98/50 92 Room Air 12/17/16 16:00 98.8 94 20 94/62 98 Room Air 12/17/16 14:33 74 101/57 Intake and Output 12/17/16 12/18/16 19:00 07:00 Intake Total 2235 ml 1591.132 ml Balance 2235 ml 1591.132 ml Intake Oral 1160 ml IV Total 1075 ml 1591.132 ml # Voids 8 5 # Bowel Movements 2 Objective General Appearance: other - awale, alert, responsive, morbidly obese AA female HEENT: normocephalic, atraumatic, anicteric, mucous membranes moist, PERRL Respiratory/Chest: no respiratory distress, no accessory muscle use, decreased breath sounds Cardiovascular: normal peripheral pulses, normal rate, no gallop/murmur, no JVD Abdomen: normal bowel sounds, soft, non tender - obese Genitourinary: normal external genitalia Extremities: no edema Skin: other - hidradenitis drainage R axilla, perineal area and abdominal folds Neurologic/Psychiatric: no motor/sensory deficits, alert, responsive Lymphatic: no neck adenopathy Musculoskeletal: normal muscle bulk Microbiology Date/Time Source Procedure Growth Status 12/16/16 08:30 Urine,Clean Catch Urine Culture - Final Alejandra Albicans Complete 12/15/16 16:00 Urine,Clean Catch Urine Culture - Final Alejandra Albicans Complete 12/16/16 05:30 Abdomen Gram Stain - Final Resulted 12/16/16 05:30 Wound Culture - Preliminary Gram Positive Carmelo Resulted Laboratory Tests 12/18/16 03:34: Stool Occult Blood [Pending] 12/18/16 04:00: Urine Opiates Screen PositiveH, Urine Barbiturates Screen Negative, Phencyclidine (PCP) Screen Negative, Urine Amphetamines Screen Negative, Urine Benzodiazepines Screen Negative, Urine Cocaine Screen Negative, Urine Marijuana (THC) Screen Negative 12/18/16 06:15: White Blood Count 9.7, Red Blood Count 2.30L, Hemoglobin 9.0L, Hematocrit 27.7L , Mean Corpuscular Volume 121H, Mean Corpuscular Hemoglobin 39.1H, Mean Corpuscular Hemoglobin Concent 32.4, Red Cell Distribution Width 16.4H, Platelet Count 286, Mean Platelet Volume 5.1L, Neutrophils (%) (Auto) , Lymphocytes (%) (Auto) , Monocytes (%) (Auto) , Eosinophils (%) (Auto) , Basophils (%) (Auto) , Differential Total Cells Counted 100, Neutrophils % ( Manual) 66, Lymphocytes % (Manual) 18L, Monocytes % (Manual) 13H, Eosinophils % (Manual) 1, Basophils % (Manual) 0, Band Neutrophils 2, Platelet Estimate Adequate, Platelet Morphology Normal, Hypochromasia 1+, Anisocytosis 1+, Tear Drop Cells 1+, Stomatocytes 1+, Schistocytes 1+, Sodium Level 133L, Potassium Level 2.8L, Chloride Level 93L, Carbon Dioxide Level 27, Anion Gap 13, Blood Urea Nitrogen 16, Creatinine 0.6, Estimat Glomerular Filtration Rate > 60, Glucose Level 109H, Calcium Level 7.7L, Total Bilirubin 2.7H, Direct Bilirubin 2.0H, Aspartate Amino Transf (AST/SGOT) 707H, Alanine Aminotransferase (ALT/SGPT ) 310H, Alkaline Phosphatase 367H, Ammonia 27, Total Protein 6.2L, Albumin 2.5L , Globulin 3.7, Albumin/Globulin Ratio 0.6L, Lipase 89H Current Medications Medications (Trade) Dose Ordered Sig/Payam Route PRN Reason Start Time Stop Time Status Last Admin Dose Admin Acetaminophen (Tylenol) 650 mg Q4H PRN ORAL fever 12/16/16 17:30 01/15/17 17:29 Al Hydroxide/Mg Hydroxide (Mylanta II) 30 ml Q6H PRN ORAL dyspepsia 12/16/16 17:30 01/15/17 17:29 12/17/16 10:49 Cefepime HCl 1 gm/ Dextrose 55 ml @ 110 mls/hr Q24H IVPB 12/17/16 03:00 12/24/16 02:59 12/18/16 02:20 Chlordiazepoxide (Librium) 25 mg Q6H PRN ORAL Agitation 12/16/16 17:30 12/23/16 17:29 Clindamycin HCl/ Dextrose 50 ml @ 100 mls/hr Q8HR@0300,1100,1900 IV 12/16/16 19:00 12/23/16 18:59 12/18/16 11:20 Dextrose (Dextrose 50%) STAT PRN IV Hypoglycemia 12/16/16 17:30 01/15/17 17:29 Dextrose/Sodium Chloride 1,000 ml @ 100 mls/hr Q10H IV 12/16/16 18:00 01/15/17 17:59 12/18/16 11:19 Diphenhydramine HCl (Benadryl) 25 mg Q6H PRN IVP Itching/Pruritis/Tongue Swelli 12/16/16 17:30 01/15/17 17:29 12/18/16 06:52 Fluconazole (Diflucan) 200 mg DAILY ORAL 12/17/16 16:00 12/24/16 15:59 12/18/16 09:43 Folic Acid 1 mg/ Magnesium Sulfate 2000 mg/ Multivitamins 10 ml/Sodium Chloride 1,014.2 ml @ 124.876 mls/hr Q24H IV 12/16/16 23:00 01/15/17 22:59 12/17/16 23:25 Heparin Sodium (Porcine) (Heparin 5000 units/ml) 5,000 units EVERY 12 HOURS SUBQ 12/16/16 21:00 01/15/17 20:59 12/18/16 09:45 Lorazepam (Ativan 2mg/ml 1ml) 2 mg Q1H PRN IV seizures 12/16/16 18:00 12/23/16 17:59 Morphine Sulfate (Morphine Sulfate) 1 mg Q4H PRN IVP For Pain 4-10 12/16/16 17:30 12/23/16 17:29 12/18/16 09:44 Ondansetron HCl (Zofran) 4 mg Q6H PRN IVP Nausea & Vomiting 12/16/16 17:30 01/15/17 17:29 Pentoxifylline (TRENtal) 400 mg THREE TIMES A DAY ORAL 12/18/16 09:00 01/17/17 08:59 12/18/16 09:43 Polyethylene Glycol (Miralax) 17 gm HSPRN PRN ORAL Constipation 12/16/16 17:30 01/15/17 17:29 Propranolol HCl (Inderal) 20 mg Q8HR ORAL 12/18/16 06:00 01/17/17 05:59 Thiamine HCl/ Dextrose (Vitamin B1/D5W) 56 ml @ 112 mls/hr Q24H IVPB 12/16/16 23:00 01/15/17 22:59 12/17/16 23:25 Zolpidem Tartrate (Ambien) 5 mg HSPRN PRN ORAL Insomnia 12/16/16 17:30 01/15/17 17:29 [facility]Juhi NP Dec 18, 2016 12:10
--- NOTE | 2016-12-18 12:22 | Nephrology Progress Note ---
Assessment/Plan Assessment 1. Hypovolemic hyponatremia 2. Severe acidosis, which at this point is improving. 3. Acute renal failure. 4. Acute tubular necrosis. 5. Severe malnutrition. 6. Hypocalcemia. . Severe adenitis under the arm and abdominal wall . Plan plan to continue NS.9 monitoring electrolyte avoid NSAID iv antibiotic replace k Subjective Constitutional: Reports: no symptoms HEENT: Reports: no symptoms Genitourinary: Reports: no symptoms Neurologic/Psychiatric: Reports: no symptoms Subjective alert and awake feeling better still c/o ulceration in his mouth Objective Objective Last 24 Hour Vital Signs Date Time Temp Pulse Resp B/P Pulse Ox O2 Delivery O2 Flow Rate FiO2 12/18/16 11:55 97.9 86 16 103/64 100 Room Air 12/18/16 10:14 98.1 12/18/16 09:43 98/54 12/18/16 08:00 97.5 85 16 104/61 100 Room Air 12/18/16 05:57 84 98/54 12/18/16 04:00 97.9 84 20 98/54 100 Room Air 12/18/16 00:00 98.1 94 20 94/59 92 Room Air 12/17/16 22:00 83 98/50 12/17/16 22:00 83 98/50 12/17/16 20:00 97.8 83 20 98/50 92 Room Air 12/17/16 16:00 98.8 94 20 94/62 98 Room Air 12/17/16 14:33 74 101/57 Intake and Output 12/17/16 12/18/16 19:00 07:00 Intake Total 2235 ml 1591.132 ml Balance 2235 ml 1591.132 ml Intake Oral 1160 ml IV Total 1075 ml 1591.132 ml # Voids 8 5 # Bowel Movements 2 Laboratory Tests 12/18/16 03:34: Stool Occult Blood [Pending] 12/18/16 04:00: Urine Opiates Screen PositiveH, Urine Barbiturates Screen Negative, Phencyclidine (PCP) Screen Negative, Urine Amphetamines Screen Negative, Urine Benzodiazepines Screen Negative, Urine Cocaine Screen Negative, Urine Marijuana (THC) Screen Negative 12/18/16 06:15: White Blood Count 9.7, Red Blood Count 2.30L, Hemoglobin 9.0L, Hematocrit 27.7L , Mean Corpuscular Volume 121H, Mean Corpuscular Hemoglobin 39.1H, Mean Corpuscular Hemoglobin Concent 32.4, Red Cell Distribution Width 16.4H, Platelet Count 286, Mean Platelet Volume 5.1L, Neutrophils (%) (Auto) , Lymphocytes (%) (Auto) , Monocytes (%) (Auto) , Eosinophils (%) (Auto) , Basophils (%) (Auto) , Differential Total Cells Counted 100, Neutrophils % ( Manual) 66, Lymphocytes % (Manual) 18L, Monocytes % (Manual) 13H, Eosinophils % (Manual) 1, Basophils % (Manual) 0, Band Neutrophils 2, Platelet Estimate Adequate, Platelet Morphology Normal, Hypochromasia 1+, Anisocytosis 1+, Tear Drop Cells 1+, Stomatocytes 1+, Schistocytes 1+, Sodium Level 133L, Potassium Level 2.8L, Chloride Level 93L, Carbon Dioxide Level 27, Anion Gap 13, Blood Urea Nitrogen 16, Creatinine 0.6, Estimat Glomerular Filtration Rate > 60, Glucose Level 109H, Calcium Level 7.7L, Total Bilirubin 2.7H, Direct Bilirubin 2.0H, Aspartate Amino Transf (AST/SGOT) 707H, Alanine Aminotransferase (ALT/SGPT ) 310H, Alkaline Phosphatase 367H, Ammonia 27, Total Protein 6.2L, Albumin 2.5L , Globulin 3.7, Albumin/Globulin Ratio 0.6L, Lipase 89H Height (Feet): 5 Height (Inches): 6.00 Weight (Pounds): 217 Objective HEAD AND NECK: No JVP. No LAD. No thyromegaly. Extraocular movements intact. Pupils are reactive to light and accommodation. LUNGS: Decreased breathing sounds on both sides. CARDIAC: Regular rate and rhythm. S1 and S2. No murmur. No rub. ABDOMEN: Hidradenitis on right axilla and abdominal wall drainage and EXTREMITIES: No edema. No clubbing. No cyanosis. NEUROLOGIC: Cranial nerves II to XII within normal limits. Extraocular movements are intact. HERMINIO SAHA Dec 18, 2016 12:22
[2016-12-18] MEDS ORDERED: Tubing IV Secondary IV ONE (15:11)
[2016-12-18] MEDS ORDERED: D5NS 1000ml IV ONE (15:11)
[2016-12-18] MEDS ORDERED: LORazepam 1mg tab ORAL PRN (15:45)
--- NOTE | 2016-12-18 16:10 | Infectious Diseases Prog Note ---
Assessment/Plan Problems: (1) UTI (urinary tract infection) Assessment & Plan: due to yeast and Klebsiella pneumonia , on cefepime and fluconazol for two weeks . (2) Sepsis Assessment & Plan: blood culture is negative . continue cefepime with clindamycin (3) Acute pancreatitis Assessment & Plan: due to alcohol abuse, continue hydration, and pain management, keep npo, monitor lipase (4) Hidradenitis suppurativa Assessment & Plan: on cefepime and clindamycin , continue local wound care , follow up with general surgery Subjective Constitutional: Reports: fatigue HEENT: Reports: no symptoms Respiratory: Reports: no symptoms Breasts: Reports: no symptoms Cardiovascular: Reports: no symptoms Gastrointestinal/Abdominal: Reports: other - pain and skin wound Genitourinary: Reports: dysuria Neurologic: Reports: confusion, weakness Psychiatric: Reports: depression Skin: Reports: ulcer Endocrine: Reports: no symptoms Allergies: Coded Allergies: IBUPROFEN (Verified Allergy, Severe, Anaphylaxis, 06/12/16) swollen face and lips NSAIDS (NON-STEROIDAL ANTI-INFLAMMA (Verified Allergy, Severe, Anaphylaxis , 06/12/16) swollen face and lips Uncoded Allergies: NSAIDS include Ibuprofen (Adverse Reaction, Severe, Anaphylaxis, 06/11/16) Swollen face and lip Objective Vital Signs Last 24 Hour Vital Signs Date Time Temp Pulse Resp B/P Pulse Ox O2 Delivery O2 Flow Rate FiO2 12/18/16 16:05 98.0 82 18 106/68 99 Room Air 12/18/16 13:04 103/64 12/18/16 12:59 86 103/64 12/18/16 11:55 97.9 86 16 103/64 100 Room Air 12/18/16 10:14 98.1 12/18/16 09:43 98/54 12/18/16 08:00 97.5 85 16 104/61 100 Room Air 12/18/16 05:57 84 98/54 12/18/16 04:00 97.9 84 20 98/54 100 Room Air 12/18/16 00:00 98.1 94 20 94/59 92 Room Air 12/17/16 22:00 83 98/50 12/17/16 22:00 83 98/50 12/17/16 20:00 97.8 83 20 98/50 92 Room Air Height (Feet): 5 Height (Inches): 6.00 Weight (Pounds): 217 General Appearance: WD/WN, no acute distress HEENT: atraumatic, anicteric, mucous membranes moist Respiratory/Chest: chest wall non-tender, lungs clear, normal breath sounds, no respiratory distress, no accessory muscle use Cardiovascular: normal peripheral pulses, normal rate, regular rhythm Abdomen: normal bowel sounds, no organomegaly, non distended, no mass, no scars , tender, other - abdominal wall wound Skin: ulcers Microbiology Date/Time Source Procedure Growth Status 12/18/16 03:34 Stool Clostridium difficile Toxin Assay - Final Complete 12/16/16 08:30 Urine,Clean Catch Urine Culture - Final Alejandra Albicans Complete 12/16/16 05:30 Abdomen Gram Stain - Final Resulted 12/16/16 05:30 Wound Culture - Preliminary Gram Positive Carmelo Resulted Laboratory Tests Test 12/18/16 03:34 12/18/16 04:00 12/18/16 06:15 Stool Occult Blood Negative (NEGATIVE) Urine Opiates Screen Positive (NEGATIVE) H Urine Barbiturates Screen Negative (NEGATIVE) Phencyclidine (PCP) Screen Negative (NEGATIVE) Urine Amphetamines Screen Negative (NEGATIVE) Urine Benzodiazepines Screen Negative (NEGATIVE) Urine Cocaine Screen Negative (NEGATIVE) Urine Marijuana (THC) Screen Negative (NEGATIVE) White Blood Count 9.7 K/UL (4.8-10.8) Red Blood Count 2.30 M/UL (4.20-5.40) L Hemoglobin 9.0 G/DL (12.0-16.0) L Hematocrit 27.7 % (37.0-47.0) L Mean Corpuscular Volume 121 FL (80-99) H Mean Corpuscular Hemoglobin 39.1 PG (27.0-31.0) H Mean Corpuscular Hemoglobin Concent 32.4 G/DL (32.0-36.0) Red Cell Distribution Width 16.4 % (11.6-14.8) H Platelet Count 286 K/UL (150-450) Mean Platelet Volume 5.1 FL (6.5-10.1) L Neutrophils (%) (Auto) % (45.0-75.0) Lymphocytes (%) (Auto) % (20.0-45.0) Monocytes (%) (Auto) % (1.0-10.0) Eosinophils (%) (Auto) % (0.0-3.0) Basophils (%) (Auto) % (0.0-2.0) Differential Total Cells Counted 100 Neutrophils % (Manual) 66 % (45-75) Lymphocytes % (Manual) 18 % (20-45) L Monocytes % (Manual) 13 % (1-10) H Eosinophils % (Manual) 1 % (0-3) Basophils % (Manual) 0 % (0-2) Band Neutrophils 2 % (0-8) Platelet Estimate Adequate Platelet Morphology Normal Hypochromasia 1+ Anisocytosis 1+ Tear Drop Cells 1+ Stomatocytes 1+ Schistocytes 1+ Sodium Level 133 mEQ/L (135-145) L Potassium Level 2.8 mEQ/L (3.4-4.9) L Chloride Level 93 mEQ/L (98-107) L Carbon Dioxide Level 27 mEQ/L (20-30) Anion Gap 13 (5-15) Blood Urea Nitrogen 16 mg/dL (7-23) Creatinine 0.6 mg/dL (0.5-0.9) Estimat Glomerular Filtration Rate > 60 mL/min (>60) Glucose Level 109 mg/dL (74-106) H Calcium Level 7.7 mg/dL (8.6-10.2) L Total Bilirubin 2.7 mg/dL (0.0-1.2) H Direct Bilirubin 2.0 mg/dL (0.1-0.3) H Aspartate Amino Transf (AST/SGOT) 707 U/L (5-40) H Alanine Aminotransferase (ALT/SGPT) 310 U/L (3-33) H Alkaline Phosphatase 367 U/L (35-104) H Ammonia 27 umol/L (11-51) Total Protein 6.2 g/dL (6.6-8.7) L Albumin 2.5 g/dL (3.5-5.2) L Globulin 3.7 g/dL Albumin/Globulin Ratio 0.6 (1.0-2.7) L Lipase 89 U/L (< 60) H Current Medications Medications (Trade) Dose Ordered Sig/Payam Route PRN Reason Start Time Stop Time Status Last Admin Dose Admin Acetaminophen (Tylenol) 650 mg Q4H PRN ORAL fever 12/16/16 17:30 01/15/17 17:29 Al Hydroxide/Mg Hydroxide (Mylanta II) 30 ml Q6H PRN ORAL dyspepsia 12/16/16 17:30 01/15/17 17:29 12/17/16 10:49 Cefepime HCl 1 gm/ Dextrose 55 ml @ 110 mls/hr Q24H IVPB 12/17/16 03:00 12/24/16 02:59 12/18/16 02:20 Chlordiazepoxide (Librium) 25 mg Q6H PRN ORAL Agitation 12/16/16 17:30 12/23/16 17:29 Clindamycin HCl/ Dextrose (Cleocin 600mg) 50 ml @ 100 mls/hr Q8HR@0300,1100,1900 IV 12/16/16 19:00 12/23/16 18:59 12/18/16 11:20 Dextrose (Dextrose 50%) STAT PRN IV Hypoglycemia 12/16/16 17:30 01/15/17 17:29 Dextrose/Sodium Chloride (D5ns) 1,000 ml @ 75 mls/hr [id number] IV 12/18/16 12:15 01/17/17 12:14 12/18/16 12:59 Diphenhydramine HCl (Benadryl) 25 mg Q6H PRN IVP Itching/Pruritis/Tongue Swelli 12/16/16 17:30 01/15/17 17:29 12/18/16 12:58 Fluconazole (Diflucan) 200 mg DAILY ORAL 12/17/16 16:00 12/24/16 15:59 12/18/16 09:43 Folic Acid (Folate) 1 mg DAILY ORAL 12/19/16 09:00 01/18/17 08:59 Heparin Sodium (Porcine) (Heparin 5000 units/ml) 5,000 units EVERY 12 HOURS SUBQ 12/16/16 21:00 01/15/17 20:59 12/18/16 09:45 Lorazepam (Ativan 2mg/ml 1ml) 2 mg Q1H PRN IV seizures 12/16/16 18:00 12/23/16 17:59 Lorazepam (Ativan) 1 mg Q6H PRN ORAL For Anxiety 12/18/16 15:45 12/25/16 15:44 Morphine Sulfate (Morphine Sulfate) 1 mg Q4H PRN IVP For Pain 4-10 12/16/16 17:30 12/23/16 17:29 12/18/16 09:44 Ondansetron HCl (Zofran) 4 mg Q6H PRN IVP Nausea & Vomiting 12/16/16 17:30 01/15/17 17:29 Pentoxifylline (TRENtal) 400 mg THREE TIMES A DAY ORAL 12/18/16 09:00 01/17/17 08:59 12/18/16 13:04 Polyethylene Glycol (Miralax) 17 gm HSPRN PRN ORAL Constipation 12/16/16 17:30 01/15/17 17:29 Potassium Chloride 40 meq 40 meq Q4H ORAL 12/18/16 12:15 12/18/16 16:16 12/18/16 12:59 Propranolol HCl (Inderal) 20 mg Q8HR ORAL 12/18/16 06:00 01/17/17 05:59 12/18/16 12:59 Ranitidine HCl (Zantac) 150 mg BEDTIME ORAL 12/18/16 21:00 01/17/17 20:59 Thiamine HCl (Vitamin B1) 100 mg DAILY ORAL 12/19/16 09:00 01/18/17 08:59 Zolpidem Tartrate (Ambien) 5 mg HSPRN PRN ORAL Insomnia 12/16/16 17:30 01/15/17 17:29 Brandan Rubin M.D. Dec 18, 2016 16:10
[2016-12-18] MEDS ORDERED: Morphine Sulfate 2mg/ml Inj SUBQ PRN (17:30)
[2016-12-19] VITALS: BP 95/55
[2016-12-19] MEDS: Morphine Sulfate 2mg/ml Inj IVP PRN ×3 (02:12→12:54)
[2016-12-19] MEDS: D5NS 1,000 ML IV SCH ×2 (02:13→14:55)
[2016-12-19] MEDS: Cefepime HCl 1 GM in D5W 55 ML IVPB SCH (02:21)
[2016-12-19] MEDS: Clindamycin 600mg 50 ML IV SCH ×2 (02:22→11:00)
[2016-12-19 04:00] VITALS: BP 105/60
--- NOTE | 2016-12-19 05:15 | Consultation ---
DATE OF CONSULTATION: HISTORY OF PRESENT ILLNESS: This is a 41-year-old obese black female with a history of alcohol abuse, multiple medical problems including anemia, fatty liver, pancreatitis, generalized weakness, alcoholic hepatitis, acute renal failure, metabolic acidosis, UTI, sepsis, severe malnutrition, ovarian cyst, and pancytopenia. The patient has been presenting with anxiety. She is a chronic alcoholic. She complained of having pain in her mouth due to ulcers in her mouth. The patient has decreased appetite and difficulty sleeping. She stated that she feels better, however, she endorses depressive symptoms. PAST PSYCHIATRIC HISTORY: She has a history of anxiety disorder as well as dementia. MEDICATIONS: Currently, she is not on any psychotropic medications besides benzodiazepines for alcohol withdrawal as well as Librium. ALLERGIES: Ibuprofen and NSAIDs. SUBSTANCE ABUSE HISTORY: Significant for chronic use of alcohol. MENTAL STATUS EXAMINATION: The patient is alert, oriented to time, self, place, and situation she is in, cooperative with examination. Mood was anxious, slightly irritable. Affect is constricted, congruent with mood. Thought process is concrete. Thought content, no suicidal or homicidal ideations. IMPRESSION: AXIS I Alcohol dependence, alcohol intoxication, which is resolved; anxiety disorder, rule out major depressive disorder. AXIS II Deferred. AXIS III As above. AXIS IV Low. AXIS V Global assessment of functioning is 20. PLAN: 1. We will start the patient on fluoxetine 20 mg, which is good for anxiety in alcoholics. 2. We will change the Ativan to Valium, that is a longer-acting benzodiazepine. 3. She is also on Librium. 4. Folic acid. 5. Thiamine. 6. We will continue to follow and readjust the medications. Jeanne Swenson M.D. DR: BRYANT JOB#: [id number] CC:
[2016-12-19] MEDS: Propranolol 10mg tab ORAL SCH ×3 (05:36→22:00)
[2016-12-19 06:25] LABS: MEAN CORPUSCULAR HEMOGLOBIN 40.7 PG (27.0-31.0); MEAN CORPUSCULAR HGB CONC 33.9 G/DL (32.0-36.0); MEAN CORPUSCULAR VOLUME 120 FL (80-99); MEAN PLATELET VOLUME 5.5 FL (6.5-10.1); PLATELET COUNT 329 K/UL (150-450); RED BLOOD COUNT 2.32 M/UL (4.20-5.40); RED CELL DISTRIBUTION WIDTH 17.3 % (11.6-14.8); WHITE BLOOD COUNT 7.8 K/UL (4.8-10.8)
[2016-12-19 07:00] LABS: ALANINE AMINOTRANSFERASE 368 U/L (3-33); ALBUMIN/GLOBULIN RATIO 0.6 (1.0-2.7); AMYLASE 37 U/L (10-110); ANION GAP 14 (5-15); ASPARTATE AMINO TRANSFERASE 648 U/L (5-40); CALCIUM 7.7 mg/dL (8.6-10.2); CARBON DIOXIDE 27 mEQ/L (20-30); CHLORIDE 93 mEQ/L (98-107); CREATININE 0.6 mg/dL (0.5-0.9); GLOMERULAR FILTRATION RATE > 60 mL/min (>60); HEMOLYSIS 10; LIPASE 70 U/L (< 60); POTASSIUM 2.8 mEQ/L (3.4-4.9); SODIUM 134 mEQ/L (135-145); TOTAL PROTEIN 6.5 g/dL (6.6-8.7)
[2016-12-19 07:15] LABS: BILIRUBIN,DIRECT 1.4 mg/dL (0.1-0.3)
[2016-12-19 08:00] VITALS: BP 92/60
--- NOTE | 2016-12-19 08:18 | Nephrology Progress Note ---
Assessment/Plan Assessment 1. Hypovolemic hyponatremia 2. Severe acidosis, which at this point is improving. 3. Acute renal failure. 4. Acute tubular necrosis. 5. hypokalemia . 6. Hypocalcemia. . Severe adenitis under the arm and abdominal wall . Plan plan to continue NS.9 monitoring electrolyte avoid NSAID iv antibiotic replace k check mg level Subjective Constitutional: Reports: malaise HEENT: Reports: mouth pain, mouth swelling, throat pain Genitourinary: Reports: no symptoms Neurologic/Psychiatric: Reports: depressed Subjective alert and awake feeling better Objective Objective Last 24 Hour Vital Signs Date Time Temp Pulse Resp B/P Pulse Ox O2 Delivery O2 Flow Rate FiO2 12/19/16 06:36 98.2 12/19/16 05:36 76 105/60 12/19/16 04:00 98.2 76 20 105/60 100 Room Air 12/19/16 00:00 98.1 79 20 95/55 100 Room Air 12/18/16 21:23 77 86/60 12/18/16 20:30 79 98/51 12/18/16 20:00 97.5 77 20 86/60 100 Room Air 12/18/16 17:46 106/68 12/18/16 16:05 98.0 82 18 106/68 99 Room Air 12/18/16 13:04 103/64 12/18/16 12:59 86 103/64 12/18/16 11:55 97.9 86 16 103/64 100 Room Air 12/18/16 10:14 98.1 12/18/16 09:43 98/54 Intake and Output 12/18/16 12/19/16 19:00 07:00 Intake Total 2190 ml 1555 ml Output Total 500 ml 700 ml Balance 1690 ml 855 ml Intake Oral 1360 ml 400 ml IV Total 830 ml 1155 ml Output Urine Total 500 ml 700 ml # Voids 2 4 # Bowel Movements 3 1 Laboratory Tests 12/19/16 05:00: White Blood Count 7.8, Red Blood Count 2.32L, Hemoglobin 9.4L, Hematocrit 27.8L , Mean Corpuscular Volume 120H, Mean Corpuscular Hemoglobin 40.7H, Mean Corpuscular Hemoglobin Concent 33.9, Red Cell Distribution Width 17.3H, Platelet Count 329, Mean Platelet Volume 5.5L, Neutrophils (%) (Auto) , Lymphocytes (%) (Auto) , Monocytes (%) (Auto) , Eosinophils (%) (Auto) , Basophils (%) (Auto) , Neutrophils % (Manual) [Pending], Lymphocytes % (Manual) [Pending], Platelet Estimate [Pending], Platelet Morphology [Pending], Sodium Level 134L, Potassium Level 2.8L, Chloride Level 93L, Carbon Dioxide Level 27, Anion Gap 14, Blood Urea Nitrogen 10, Creatinine 0.6, Estimat Glomerular Filtration Rate > 60, Glucose Level 123H, Calcium Level 7.7L, Magnesium Level 1.9, Total Bilirubin 2.3H, Direct Bilirubin 1.4H, Aspartate Amino Transf (AST/ SGOT) 648H, Alanine Aminotransferase (ALT/SGPT) 368H, Alkaline Phosphatase 391H , Total Protein 6.5L, Albumin 2.6L, Globulin 3.9, Albumin/Globulin Ratio 0.6L, Amylase Level 37, Lipase 70H Height (Feet): 5 Height (Inches): 6.00 Weight (Pounds): 217 Objective HEAD AND NECK: No JVP. No LAD. No thyromegaly. Extraocular movements intact. Pupils are reactive to light and accommodation. LUNGS: Decreased breathing sounds on both sides. CARDIAC: Regular rate and rhythm. S1 and S2. No murmur. No rub. ABDOMEN: Hidradenitis on right axilla and abdominal wall drainage and EXTREMITIES: No edema. No clubbing. No cyanosis. NEUROLOGIC: Cranial nerves II to XII within normal limits. Extraocular movements are intact. HERMINIO SAHA Dec 19, 2016 08:18
[2016-12-19 08:45] LABS: BAND NEUTROPHILS % (MANUAL) 1 % (0-8); BASOPHILS % (MANUAL) 1 % (0-2); EOSINOPHILS % (MANUAL) 3 % (0-3); LYMPHOCYTES % (MANUAL) 18 % (20-45); NEUTROPHILS % (MANUAL) 61 % (45-75); NUCLEATED RED BLOOD CELLS 5 /100 WBC; POLYCHROMASIA 1+; TOTAL CELLS COUNTED 100
[2016-12-19 08:46] LABS: ANISOCYTOSIS 1+; HYPOCHROMASIA 1+; MICROCYTES 1+; STOMATOCYTES 1+; TARGET CELLS 1+
[2016-12-19] MEDS: Fluconazole 100mg tab ORAL SCH (08:54)
[2016-12-19] MEDS: Thiamine 100mg tab ORAL SCH (08:55)
[2016-12-19 08:59] LABS: PLATELET ESTIMATE ADEQUATE; PLATELET MORPHOLOGY NORMAL
[2016-12-19] MEDS: Heparin 5000 units/ml inj SUBQ SCH ×2 (09:09→22:11)
--- NOTE | 2016-12-19 10:46 | Consultation ---
DATE OF CONSULTATION: 12/16/2016 NEPHROLOGY CONSULTATION CONSULTING PHYSICIAN: Yane Moore M.D. REFERRING PHYSICIAN: Franky Olvera D.O. REASON FOR CONSULTATION: Severe hyponatremia. History Of Present Illness: The patient is a 41-year-old female with past medical history significant for history of hidradenitis. She has history of ETOH abuse and history of GERD who presents to [facility] complaining of 00:57 and the patient is also complaining of right underarm hidradenitis and abdominal wall hidradenitis. Apparently, the patient has a history of alcohol abuse, which is binge drinking heavily over the couple of days. She is also complaining of sore throat and she is on 01:25. The patient in the ER was found to have tachycardia and found to have a sodium of 118. It was consistent 01:37 broad spectrum antibiotics, admitted in the hospital, 01:47 electrolyte imbalance. PAST MEDICAL HISTORY: History of ETOH abuse, history of hidradenitis in the past, history of substance abuse, and history of GERD. PAST SURGICAL HISTORY: History of hidradenitis and I and D in the past. ALLERGIES: Ibuprofen and NSAIDs. Social History: She lives at home. Drinks alcohol on a daily basis. 02:16. FAMILY HISTORY: Unknown. Review Of Systems: The patient opens her eyes 02:27. DICTATION ENDS HERE Yane Moore M.D. DR: JAMAL JOB#: [id number] CC:
--- NOTE | 2016-12-19 11:20 | GI Progress Note ---
Assessment/Plan Problems: (1) Alcoholic pancreatitis ICD Codes: K85.20 - Alcohol induced acute pancreatitis without necrosis or infection SNOMED: 010314883 (2) Fatty liver ICD Codes: K76.0 - Fatty (change of) liver, not elsewhere classified SNOMED: 195861038 (3) Acute alcohol intoxication ICD Codes: F10.129 - Alcohol abuse with intoxication, unspecified SNOMED: 46813390 (4) Abdominal pain ICD Codes: R10.9 - Unspecified abdominal pain SNOMED: 37025291 Status: unchanged Status Narrative Discussed with Dr. Jones. Assessment/Plan OB stool negative hepatitis panel >> negative tolerating diet discreminating factor calculated at 19 so no need for steroids ? needs psysh eval pentoxyphyline monitor H&H, transfuse prn H2B repeat LFTs, lipase pain mgmt fu labs Subjective Subjective abdominal pain wants PICC Objective Last 24 Hour Vital Signs Date Time Temp Pulse Resp B/P Pulse Ox O2 Delivery O2 Flow Rate FiO2 12/19/16 09:00 92/60 12/19/16 08:00 97.9 82 16 92/60 100 Room Air 12/19/16 06:36 98.2 12/19/16 05:36 76 105/60 12/19/16 04:00 98.2 76 20 105/60 100 Room Air 12/19/16 00:00 98.1 79 20 95/55 100 Room Air 12/18/16 21:23 77 86/60 12/18/16 20:30 79 98/51 12/18/16 20:00 97.5 77 20 86/60 100 Room Air 12/18/16 17:46 106/68 12/18/16 16:05 98.0 82 18 106/68 99 Room Air 12/18/16 13:04 103/64 12/18/16 12:59 86 103/64 12/18/16 11:55 97.9 86 16 103/64 100 Room Air Intake and Output 12/18/16 12/19/16 19:00 07:00 Intake Total 2190 ml 1555 ml Output Total 500 ml 700 ml Balance 1690 ml 855 ml Intake Oral 1360 ml 400 ml IV Total 830 ml 1155 ml Output Urine Total 500 ml 700 ml # Voids 2 4 # Bowel Movements 3 1 Laboratory Tests Test 12/19/16 05:00 White Blood Count 7.8 K/UL (4.8-10.8) Red Blood Count 2.32 M/UL (4.20-5.40) L Hemoglobin 9.4 G/DL (12.0-16.0) L Hematocrit 27.8 % (37.0-47.0) L Mean Corpuscular Volume 120 FL (80-99) H Mean Corpuscular Hemoglobin 40.7 PG (27.0-31.0) H Mean Corpuscular Hemoglobin Concent 33.9 G/DL (32.0-36.0) Red Cell Distribution Width 17.3 % (11.6-14.8) H Platelet Count 329 K/UL (150-450) Mean Platelet Volume 5.5 FL (6.5-10.1) L Neutrophils (%) (Auto) % (45.0-75.0) Lymphocytes (%) (Auto) % (20.0-45.0) Monocytes (%) (Auto) % (1.0-10.0) Eosinophils (%) (Auto) % (0.0-3.0) Basophils (%) (Auto) % (0.0-2.0) Differential Total Cells Counted 100 Neutrophils % (Manual) 61 % (45-75) Lymphocytes % (Manual) 18 % (20-45) L Monocytes % (Manual) 16 % (1-10) H Eosinophils % (Manual) 3 % (0-3) Basophils % (Manual) 1 % (0-2) Band Neutrophils 1 % (0-8) Nucleated Red Blood Cells 5 /100 WBC Platelet Estimate Adequate Platelet Morphology Normal Polychromasia 1+ Hypochromasia 1+ Anisocytosis 1+ Microcytosis 1+ Target Cells 1+ Stomatocytes 1+ Sodium Level 134 mEQ/L (135-145) L Potassium Level 2.8 mEQ/L (3.4-4.9) L Chloride Level 93 mEQ/L (98-107) L Carbon Dioxide Level 27 mEQ/L (20-30) Anion Gap 14 (5-15) Blood Urea Nitrogen 10 mg/dL (7-23) Creatinine 0.6 mg/dL (0.5-0.9) Estimat Glomerular Filtration Rate > 60 mL/min (>60) Glucose Level 123 mg/dL (74-106) H Calcium Level 7.7 mg/dL (8.6-10.2) L Magnesium Level 1.9 mg/dL (1.7-2.5) Total Bilirubin 2.3 mg/dL (0.0-1.2) H Direct Bilirubin 1.4 mg/dL (0.1-0.3) H Aspartate Amino Transf (AST/SGOT) 648 U/L (5-40) H Alanine Aminotransferase (ALT/SGPT) 368 U/L (3-33) H Alkaline Phosphatase 391 U/L (35-104) H Total Protein 6.5 g/dL (6.6-8.7) L Albumin 2.6 g/dL (3.5-5.2) L Globulin 3.9 g/dL Albumin/Globulin Ratio 0.6 (1.0-2.7) L Amylase Level 37 U/L (10-110) Lipase 70 U/L (< 60) H Height (Feet): 5 Height (Inches): 6.00 Weight (Pounds): 217 General Appearance: no apparent distress, alert, overweight Cardiovascular: normal rate Respiratory/Chest: normal breath sounds Abdominal Exam: normal bowel sounds, non tender, soft Extremities: normal range of motion Nayeli Box N.P. Dec 19, 2016 11:20
[2016-12-19 12:00] VITALS: BP 82/52
--- NOTE | 2016-12-19 14:03 | General Progress Note ---
Assessment/Plan Problem List: (1) Acute alcohol intoxication ICD Codes: F10.129 - Alcohol abuse with intoxication, unspecified SNOMED: 13206617 (2) Severe anemia ICD Codes: D64.9 - Anemia, unspecified SNOMED: 110320874 (3) Weak ICD Codes: R53.1 - Weakness SNOMED: 07439293 (4) Abdominal pain ICD Codes: R10.9 - Unspecified abdominal pain SNOMED: 34532404 (5) Hydradenitis ICD Codes: L73.2 - Hidradenitis suppurativa SNOMED: 36295477 (6) Sepsis ICD Codes: A41.9 - Sepsis, unspecified organism SNOMED: 32302715 (7) UTI (urinary tract infection) ICD Codes: N39.0 - Urinary tract infection, site not specified SNOMED: 43477390 (8) Acute pancreatitis ICD Codes: K85.90 - Acute pancreatitis without necrosis or infection, unspecified SNOMED: 291851004 (9) Generalized weakness ICD Codes: R53.1 - Weakness SNOMED: 18985563 Status: stable, progressing, tolerating diet Assessment/Plan ot pt diet detox pain control abx cbc bmp am dc plan w hh Subjective Constitutional: Reports: weakness Allergies: Coded Allergies: IBUPROFEN (Verified Allergy, Severe, Anaphylaxis, 06/12/16) swollen face and lips NSAIDS (NON-STEROIDAL ANTI-INFLAMMA (Verified Allergy, Severe, Anaphylaxis , 06/12/16) swollen face and lips Uncoded Allergies: NSAIDS include Ibuprofen (Adverse Reaction, Severe, Anaphylaxis, 06/11/16) Swollen face and lip All Systems: reviewed and negative except above Subjective sl nausea Objective Last 24 Hour Vital Signs Date Time Temp Pulse Resp B/P Pulse Ox O2 Delivery O2 Flow Rate FiO2 12/19/16 12:55 90/61 12/19/16 12:00 97.7 65 16 82/52 98 12/19/16 09:00 92/60 12/19/16 08:00 97.9 82 16 92/60 100 Room Air 12/19/16 06:36 98.2 12/19/16 05:36 76 105/60 12/19/16 04:00 98.2 76 20 105/60 100 Room Air 12/19/16 00:00 98.1 79 20 95/55 100 Room Air 12/18/16 21:23 77 86/60 12/18/16 20:30 79 98/51 12/18/16 20:00 97.5 77 20 86/60 100 Room Air 12/18/16 17:46 106/68 12/18/16 16:05 98.0 82 18 68 99 Room Air Intake and Output 12/18/16 12/19/16 19:00 07:00 Intake Total 2190 ml 1555 ml Output Total 500 ml 700 ml Balance 1690 ml 855 ml Intake Oral 1360 ml 400 ml IV Total 830 ml 1155 ml Output Urine Total 500 ml 700 ml # Voids 2 4 # Bowel Movements 3 1 Laboratory Tests 12/19/16 05:00: White Blood Count 7.8, Red Blood Count 2.32L, Hemoglobin 9.4L, Hematocrit 27.8L , Mean Corpuscular Volume 120H, Mean Corpuscular Hemoglobin 40.7H, Mean Corpuscular Hemoglobin Concent 33.9, Red Cell Distribution Width 17.3H, Platelet Count 329, Mean Platelet Volume 5.5L, Neutrophils (%) (Auto) , Lymphocytes (%) (Auto) , Monocytes (%) (Auto) , Eosinophils (%) (Auto) , Basophils (%) (Auto) , Differential Total Cells Counted 100, Neutrophils % ( Manual) 61, Lymphocytes % (Manual) 18L, Monocytes % (Manual) 16H, Eosinophils % (Manual) 3, Basophils % (Manual) 1, Band Neutrophils 1, Nucleated Red Blood Cells 5, Platelet Estimate Adequate, Platelet Morphology Normal, Polychromasia 1 +, Hypochromasia 1+, Anisocytosis 1+, Microcytosis 1+, Target Cells 1+, Stomatocytes 1+, Sodium Level 134L, Potassium Level 2.8L, Chloride Level 93L, Carbon Dioxide Level 27, Anion Gap 14, Blood Urea Nitrogen 10, Creatinine 0.6, Estimat Glomerular Filtration Rate > 60, Glucose Level 123H, Calcium Level 7.7L , Magnesium Level 1.9, Total Bilirubin 2.3H, Direct Bilirubin 1.4H, Aspartate Amino Transf (AST/SGOT) 648H, Alanine Aminotransferase (ALT/SGPT) 368H, Alkaline Phosphatase 391H, Total Protein 6.5L, Albumin 2.6L, Globulin 3.9, Albumin/Globulin Ratio 0.6L, Amylase Level 37, Lipase 70H Height (Feet): 5 Height (Inches): 6.00 Weight (Pounds): 217 General Appearance: lethargic EENT: normal ENT inspection Neck: normal alignment Cardiovascular: normal peripheral pulses, normal rate, regular rhythm Respiratory/Chest: chest wall non-tender, lungs clear, normal breath sounds Abdomen: normal bowel sounds, non tender, soft Extremities: normal inspection Edema: no edema noted Arm (L), no edema noted Arm (R), no edema noted Leg (L), no edema noted Leg (R), no edema noted Pedal (L), no edema noted Pedal (R), no edema noted Generalized Neurologic: responsive, motor weakness Skin: normal pigmentation, warm/dry PIETER GAUTHIER Dec 19, 2016 14:03
[2016-12-19] MEDS ORDERED: Cefepime 1gm/D5W 55ml IVPB SCH ×2 (15:00)
--- NOTE | 2016-12-19 15:50 | Pulmonology Progress Note ---
Assessment/Plan Problems: (1) Metabolic acidosis (2) Hyponatremia (3) Alcoholic pancreatitis (4) Cellulitis (5) Hydradenitis (6) Anxiety Assessment/Plan improving IV hydration, D5 NS at 100 symptomatic treatment abx for cellulitis of skin folds dvt porphylaxis hyponatremia w/u librium prn check labs in am all notes and meds, labs reviewed. Subjective ROS Limited/Unobtainable: No Constitutional: Reports: no symptoms HEENT: Repors: no symptoms Respiratory: Reports: no symptoms Allergies: Coded Allergies: IBUPROFEN (Verified Allergy, Severe, Anaphylaxis, 06/12/16) swollen face and lips NSAIDS (NON-STEROIDAL ANTI-INFLAMMA (Verified Allergy, Severe, Anaphylaxis , 06/12/16) swollen face and lips Uncoded Allergies: NSAIDS include Ibuprofen (Adverse Reaction, Severe, Anaphylaxis, 06/11/16) Swollen face and lip Objective Last 24 Hour Vital Signs Date Time Temp Pulse Resp B/P Pulse Ox O2 Delivery O2 Flow Rate FiO2 12/19/16 12:55 90/61 12/19/16 12:00 97.7 65 16 82/52 98 12/19/16 09:00 92/60 12/19/16 08:00 97.9 82 16 92/60 100 Room Air 12/19/16 06:36 98.2 12/19/16 05:36 76 105/60 12/19/16 04:00 98.2 76 20 105/60 100 Room Air 12/19/16 00:00 98.1 79 20 95/55 100 Room Air 12/18/16 21:23 77 86/60 12/18/16 20:30 79 98/51 12/18/16 20:00 97.5 77 20 86/60 100 Room Air 12/18/16 17:46 106/68 12/18/16 16:05 98.0 82 18 106/68 99 Room Air Intake and Output 12/18/16 12/19/16 19:00 07:00 Intake Total 2190 ml 1555 ml Output Total 500 ml 700 ml Balance 1690 ml 855 ml Intake Oral 1360 ml 400 ml IV Total 830 ml 1155 ml Output Urine Total 500 ml 700 ml # Voids 2 4 # Bowel Movements 3 1 General Appearance: WD/WN HEENT: normocephalic, atraumatic Respiratory/Chest: chest wall non-tender, lungs clear Breasts: no masses Cardiovascular: normal rate Abdomen: normal bowel sounds, soft, non tender Genitourinary: normal external genitalia Extremities: no cyanosis Skin: no rash, no lesions Neurologic/Psychiatric: no motor/sensory deficits, abnormal gait, oriented x 3 Lymphatic: no neck adenopathy Microbiology Date/Time Source Procedure Growth Status 12/18/16 03:34 Stool Clostridium difficile Toxin Assay - Final Complete Laboratory Tests 12/19/16 05:00: White Blood Count 7.8, Red Blood Count 2.32L, Hemoglobin 9.4L, Hematocrit 27.8L , Mean Corpuscular Volume 120H, Mean Corpuscular Hemoglobin 40.7H, Mean Corpuscular Hemoglobin Concent 33.9, Red Cell Distribution Width 17.3H, Platelet Count 329, Mean Platelet Volume 5.5L, Neutrophils (%) (Auto) , Lymphocytes (%) (Auto) , Monocytes (%) (Auto) , Eosinophils (%) (Auto) , Basophils (%) (Auto) , Differential Total Cells Counted 100, Neutrophils % ( Manual) 61, Lymphocytes % (Manual) 18L, Monocytes % (Manual) 16H, Eosinophils % (Manual) 3, Basophils % (Manual) 1, Band Neutrophils 1, Nucleated Red Blood Cells 5, Platelet Estimate Adequate, Platelet Morphology Normal, Polychromasia 1 +, Hypochromasia 1+, Anisocytosis 1+, Microcytosis 1+, Target Cells 1+, Stomatocytes 1+, Sodium Level 134L, Potassium Level 2.8L, Chloride Level 93L, Carbon Dioxide Level 27, Anion Gap 14, Blood Urea Nitrogen 10, Creatinine 0.6, Estimat Glomerular Filtration Rate > 60, Glucose Level 123H, Calcium Level 7.7L , Magnesium Level 1.9, Total Bilirubin 2.3H, Direct Bilirubin 1.4H, Aspartate Amino Transf (AST/SGOT) 648H, Alanine Aminotransferase (ALT/SGPT) 368H, Alkaline Phosphatase 391H, Total Protein 6.5L, Albumin 2.6L, Globulin 3.9, Albumin/Globulin Ratio 0.6L, Amylase Level 37, Lipase 70H Current Medications Medications (Trade) Dose Ordered Sig/Payam Route PRN Reason Start Time Stop Time Status Last Admin Dose Admin Acetaminophen (Tylenol) 650 mg Q4H PRN ORAL fever 12/16/16 17:30 01/15/17 17:29 Al Hydroxide/Mg Hydroxide (Mylanta II) 30 ml Q6H PRN ORAL dyspepsia 12/16/16 17:30 01/15/17 17:29 12/17/16 10:49 Cefepime HCl/ Dextrose (Maxipime/D5W) 55 ml @ 110 mls/hr Q12HR@0300,1500 IVPB 12/19/16 15:00 12/26/16 14:59 Chlordiazepoxide (Librium) 25 mg Q6H PRN ORAL Agitation 12/16/16 17:30 12/23/16 17:29 Clindamycin HCl/ Dextrose (Cleocin 600mg) 50 ml @ 100 mls/hr Q8HR@0300,1100,1900 IV 12/16/16 19:00 12/23/16 18:59 12/19/16 02:22 Dextrose (Dextrose 50%) STAT PRN IV Hypoglycemia 12/16/16 17:30 01/15/17 17:29 Dextrose/Sodium Chloride (D5ns) 1,000 ml @ 75 mls/hr [id number] IV 12/18/16 12:15 01/17/17 12:14 12/19/16 02:13 Diazepam (Valium) 10 mg Q4H PRN ORAL anxiety agitation 12/18/16 18:00 12/25/16 17:59 Diphenhydramine HCl (Benadryl) 25 mg Q6H PRN ORAL Itching 12/18/16 17:00 01/17/17 16:59 12/19/16 12:54 Fluconazole (Diflucan) 200 mg DAILY ORAL 12/17/16 16:00 12/24/16 15:59 12/19/16 08:54 Fluoxetine HCl 20 mg 20 mg DAILY ORAL 12/19/16 09:00 01/18/17 08:59 12/19/16 08:55 Folic Acid (Folate) 1 mg DAILY ORAL 12/19/16 09:00 01/18/17 08:59 12/19/16 08:55 Heparin Sodium (Porcine) (Heparin 5000 units/ml) 5,000 units EVERY 12 HOURS SUBQ 12/16/16 21:00 01/15/17 20:59 12/19/16 09:09 Lorazepam (Ativan 2mg/ml 1ml) 2 mg Q1H PRN IV seizures 12/16/16 18:00 12/23/16 17:59 Morphine Sulfate (Morphine Sulfate) 1 mg Q4H PRN IVP For Pain 4-10 12/18/16 17:30 12/25/16 17:29 12/19/16 12:54 Ondansetron HCl (Zofran) 4 mg Q6H PRN IVP Nausea & Vomiting 12/16/16 17:30 01/15/17 17:29 Pentoxifylline 400 mg 400 mg THREE TIMES A DAY ORAL 12/18/16 09:00 01/17/17 08:59 12/18/16 17:46 Polyethylene Glycol (Miralax) 17 gm HSPRN PRN ORAL Constipation 12/16/16 17:30 01/15/17 17:29 Propranolol HCl (Inderal) 20 mg Q8HR ORAL 12/18/16 06:00 01/17/17 05:59 12/19/16 05:36 Ranitidine HCl (Zantac) 150 mg BEDTIME ORAL 12/18/16 21:00 01/17/17 20:59 12/18/16 21:18 Thiamine HCl (Vitamin B1) 100 mg DAILY ORAL 12/19/16 09:00 01/18/17 08:59 12/19/16 08:55 Zolpidem Tartrate (Ambien) 5 mg HSPRN PRN ORAL Insomnia 12/16/16 17:30 01/15/17 17:29 DAVID CLARKE Dec 19, 2016 15:50
[2016-12-19 16:00] VITALS: BP 95/60
--- NOTE | 2016-12-19 18:01 | Infectious Diseases Prog Note ---
Assessment/Plan Problems: (1) UTI (urinary tract infection) Assessment & Plan: due to yeast and Klebsiella pneumonia , on cefepime and fluconazol for two weeks . (2) Sepsis Assessment & Plan: blood culture is negative . continue cefepime with clindamycin for two weeks (3) Acute pancreatitis Assessment & Plan: due to alcohol abuse, continue hydration, and pain management, keep npo, monitor lipase (4) Hidradenitis suppurativa Assessment & Plan: on cefepime and clindamycin , continue local wound care , follow up with general surgery Subjective Constitutional: Reports: fatigue HEENT: Reports: no symptoms Respiratory: Reports: no symptoms Breasts: Reports: no symptoms Cardiovascular: Reports: no symptoms Gastrointestinal/Abdominal: Reports: no symptoms Genitourinary: Reports: no symptoms Neurologic: Reports: confusion, weakness Psychiatric: Reports: depression Skin: Reports: ulcer Allergies: Coded Allergies: IBUPROFEN (Verified Allergy, Severe, Anaphylaxis, 06/12/16) swollen face and lips NSAIDS (NON-STEROIDAL ANTI-INFLAMMA (Verified Allergy, Severe, Anaphylaxis , 06/12/16) swollen face and lips Uncoded Allergies: NSAIDS include Ibuprofen (Adverse Reaction, Severe, Anaphylaxis, 06/11/16) Swollen face and lip Objective Vital Signs Last 24 Hour Vital Signs Date Time Temp Pulse Resp B/P Pulse Ox O2 Delivery O2 Flow Rate FiO2 12/19/16 14:00 88 105/73 12/19/16 12:55 90/61 12/19/16 12:00 97.7 65 16 82/52 98 12/19/16 09:00 92/60 12/19/16 08:00 97.9 82 16 92/60 100 Room Air 12/19/16 06:36 98.2 12/19/16 05:36 76 105/60 12/19/16 04:00 98.2 76 20 105/60 100 Room Air 12/19/16 00:00 98.1 79 20 95/55 100 Room Air 12/18/16 21:23 77 86/60 12/18/16 20:30 79 98/51 12/18/16 20:00 97.5 77 20 86/60 100 Room Air Height (Feet): 5 Height (Inches): 6.00 Weight (Pounds): 217 General Appearance: WD/WN, no acute distress HEENT: normocephalic, atraumatic, anicteric, mucous membranes moist, PERRL Respiratory/Chest: chest wall non-tender, lungs clear, normal breath sounds, no respiratory distress, no accessory muscle use Cardiovascular: normal peripheral pulses, normal rate, regular rhythm, no gallop/murmur, no JVD Abdomen: normal bowel sounds, soft, non tender, no organomegaly, non distended , no mass, no scars Extremities: no cyanosis, no clubbing Skin: no rash, no lesions, ulcers Neurologic/Psychiatric: alert, responsive Microbiology Date/Time Source Procedure Growth Status 12/18/16 03:34 Stool Clostridium difficile Toxin Assay - Final Complete Laboratory Tests Test 12/19/16 05:00 White Blood Count 7.8 K/UL (4.8-10.8) Red Blood Count 2.32 M/UL (4.20-5.40) L Hemoglobin 9.4 G/DL (12.0-16.0) L Hematocrit 27.8 % (37.0-47.0) L Mean Corpuscular Volume 120 FL (80-99) H Mean Corpuscular Hemoglobin 40.7 PG (27.0-31.0) H Mean Corpuscular Hemoglobin Concent 33.9 G/DL (32.0-36.0) Red Cell Distribution Width 17.3 % (11.6-14.8) H Platelet Count 329 K/UL (150-450) Mean Platelet Volume 5.5 FL (6.5-10.1) L Neutrophils (%) (Auto) % (45.0-75.0) Lymphocytes (%) (Auto) % (20.0-45.0) Monocytes (%) (Auto) % (1.0-10.0) Eosinophils (%) (Auto) % (0.0-3.0) Basophils (%) (Auto) % (0.0-2.0) Differential Total Cells Counted 100 Neutrophils % (Manual) 61 % (45-75) Lymphocytes % (Manual) 18 % (20-45) L Monocytes % (Manual) 16 % (1-10) H Eosinophils % (Manual) 3 % (0-3) Basophils % (Manual) 1 % (0-2) Band Neutrophils 1 % (0-8) Nucleated Red Blood Cells 5 /100 WBC Platelet Estimate Adequate Platelet Morphology Normal Polychromasia 1+ Hypochromasia 1+ Anisocytosis 1+ Microcytosis 1+ Target Cells 1+ Stomatocytes 1+ Sodium Level 134 mEQ/L (135-145) L Potassium Level 2.8 mEQ/L (3.4-4.9) L Chloride Level 93 mEQ/L (98-107) L Carbon Dioxide Level 27 mEQ/L (20-30) Anion Gap 14 (5-15) Blood Urea Nitrogen 10 mg/dL (7-23) Creatinine 0.6 mg/dL (0.5-0.9) Estimat Glomerular Filtration Rate > 60 mL/min (>60) Glucose Level 123 mg/dL (74-106) H Calcium Level 7.7 mg/dL (8.6-10.2) L Magnesium Level 1.9 mg/dL (1.7-2.5) Total Bilirubin 2.3 mg/dL (0.0-1.2) H Direct Bilirubin 1.4 mg/dL (0.1-0.3) H Aspartate Amino Transf (AST/SGOT) 648 U/L (5-40) H Alanine Aminotransferase (ALT/SGPT) 368 U/L (3-33) H Alkaline Phosphatase 391 U/L (35-104) H Total Protein 6.5 g/dL (6.6-8.7) L Albumin 2.6 g/dL (3.5-5.2) L Globulin 3.9 g/dL Albumin/Globulin Ratio 0.6 (1.0-2.7) L Amylase Level 37 U/L (10-110) Lipase 70 U/L (< 60) H Current Medications Medications (Trade) Dose Ordered Sig/Payam Route PRN Reason Start Time Stop Time Status Last Admin Dose Admin Acetaminophen (Tylenol) 650 mg Q4H PRN ORAL fever 12/16/16 17:30 01/15/17 17:29 Al Hydroxide/Mg Hydroxide (Mylanta II) 30 ml Q6H PRN ORAL dyspepsia 12/16/16 17:30 01/15/17 17:29 12/17/16 10:49 Cefepime HCl/ Dextrose (Maxipime/D5W) 55 ml @ 110 mls/hr Q12HR@0300,1500 IVPB 12/19/16 15:00 12/26/16 14:59 Chlordiazepoxide (Librium) 25 mg Q6H PRN ORAL Agitation 12/16/16 17:30 12/23/16 17:29 Clindamycin HCl/ Dextrose (Cleocin 600mg) 50 ml @ 100 mls/hr Q8HR@0300,1100,1900 IV 12/16/16 19:00 12/23/16 18:59 12/19/16 02:22 Dextrose (Dextrose 50%) STAT PRN IV Hypoglycemia 12/16/16 17:30 01/15/17 17:29 Dextrose/Sodium Chloride (D5ns) 1,000 ml @ 75 mls/hr [id number] IV 12/18/16 12:15 01/17/17 12:14 12/19/16 02:13 Diazepam (Valium) 10 mg Q4H PRN ORAL anxiety agitation 12/18/16 18:00 12/25/16 17:59 12/19/16 17:39 Diphenhydramine HCl (Benadryl) 25 mg Q6H PRN ORAL Itching 12/18/16 17:00 01/17/17 16:59 12/19/16 12:54 Fluconazole (Diflucan) 200 mg DAILY ORAL 12/17/16 16:00 12/24/16 15:59 12/19/16 08:54 Fluoxetine HCl 20 mg 20 mg DAILY ORAL 12/19/16 09:00 01/18/17 08:59 12/19/16 08:55 Folic Acid (Folate) 1 mg DAILY ORAL 12/19/16 09:00 01/18/17 08:59 12/19/16 08:55 Heparin Sodium (Porcine) (Heparin 5000 units/ml) 5,000 units EVERY 12 HOURS SUBQ 12/16/16 21:00 01/15/17 20:59 12/19/16 09:09 Lorazepam (Ativan 2mg/ml 1ml) 2 mg Q1H PRN IV seizures 12/16/16 18:00 12/23/16 17:59 Morphine Sulfate (Morphine Sulfate) 1 mg Q4H PRN IVP For Pain 4-10 12/18/16 17:30 12/25/16 17:29 12/19/16 12:54 Ondansetron HCl (Zofran) 4 mg Q6H PRN IVP Nausea & Vomiting 12/16/16 17:30 01/15/17 17:29 Pentoxifylline 400 mg 400 mg THREE TIMES A DAY ORAL 12/18/16 09:00 01/17/17 08:59 12/18/16 17:46 Polyethylene Glycol (Miralax) 17 gm HSPRN PRN ORAL Constipation 12/16/16 17:30 01/15/17 17:29 Propranolol HCl (Inderal) 20 mg Q8HR ORAL 12/18/16 06:00 01/17/17 05:59 12/19/16 05:36 Ranitidine HCl (Zantac) 150 mg BEDTIME ORAL 12/18/16 21:00 01/17/17 20:59 12/18/16 21:18 Thiamine HCl (Vitamin B1) 100 mg DAILY ORAL 12/19/16 09:00 01/18/17 08:59 12/19/16 08:55 Zolpidem Tartrate (Ambien) 5 mg HSPRN PRN ORAL Insomnia 12/16/16 17:30 01/15/17 17:29 Brandan Rubin M.D. Dec 19, 2016 18:01
[2016-12-19 20:00] VITALS: BP 95/65
[2016-12-19] MEDS ORDERED: Norco 5mg/325mg tab ORAL PRN (21:15)
[2016-12-19] MEDS: Cephalexin 500mg cap ORAL SCH (22:00)
--- NOTE | 2016-12-19 22:15 | Progress Note ---
DATE: 12/19/2016 SUBJECTIVE: The patient is presenting with depressed mood, anhedonia, worthlessness, hopelessness, decreased energy, and poor insight into her mental condition. MENTAL STATUS EXAMINATION: The patient is alert, and oriented to time, self, and place. Mood is depressed. Affect is constricted. Congruent with mood. The patient is malodorous and unkempt. Thought process, there is a paucity of thought content. Thought content, no suicidal or homicidal ideation. Insight and judgment is impaired. ASSESSMENT: 1. Alcohol dependence. 2. Alcohol withdrawal, which is controlled. 3. Depression. PLAN: 1. The patient will be continued on fluoxetine. 2. She is on Librium. 3. She is on Valium breakthrough for agitation from withdrawal of alcohol. 4. We will continue fluoxetine, which is a good SSRI for people with the alcohol dependence. 5. We will continue follow and readjust the medications. Jeanne Swenson M.D. DR: GAVIOTA JOB#: [id number] CC:
--- NOTE | 2016-12-19 23:49 | Cardiology Progress Note ---
Assessment/Plan Assessment/Plan 1. Sinus tachycardia, possibly due to ETOH withdrawal syndrome vs SIRS due to acute pancreatitis, resolved, treatment is to eliminate the cause. Consider hydration, pain management. Will continue propranolol. 2. SIRS 3. Acute pancreatitis 4. Gap acidosis 5. Hypotension, ?third-spacing, pain meds. Subjective Subjective No cardiac events reported. Not on the telemetry unit. Objective Last 24 Hour Vital Signs Date Time Temp Pulse Resp B/P Pulse Ox O2 Delivery O2 Flow Rate FiO2 12/19/16 22:00 86 95/65 12/19/16 20:00 98.1 86 20 95/65 100 Room Air 12/19/16 18:00 95/60 12/19/16 16:00 98.0 82 18 95/60 98 Room Air 12/19/16 14:00 88 105/73 12/19/16 12:55 90/61 12/19/16 12:00 97.7 65 16 82/52 98 12/19/16 09:00 92/60 12/19/16 08:00 97.9 82 16 92/60 100 Room Air 12/19/16 06:36 98.2 12/19/16 05:36 76 105/60 12/19/16 04:00 98.2 76 20 105/60 100 Room Air 12/19/16 00:00 98.1 79 20 95/55 100 Room Air Intake and Output 12/18/16 12/19/16 19:00 07:00 Intake Total 2190 ml 1555 ml Output Total 500 ml 700 ml Balance 1690 ml 855 ml Intake Oral 1360 ml 400 ml IV Total 830 ml 1155 ml Output Urine Total 500 ml 700 ml # Voids 2 4 # Bowel Movements 3 1 Laboratory Tests Test 12/19/16 05:00 White Blood Count 7.8 K/UL (4.8-10.8) Red Blood Count 2.32 M/UL (4.20-5.40) L Hemoglobin 9.4 G/DL (12.0-16.0) L Hematocrit 27.8 % (37.0-47.0) L Mean Corpuscular Volume 120 FL (80-99) H Mean Corpuscular Hemoglobin 40.7 PG (27.0-31.0) H Mean Corpuscular Hemoglobin Concent 33.9 G/DL (32.0-36.0) Red Cell Distribution Width 17.3 % (11.6-14.8) H Platelet Count 329 K/UL (150-450) Mean Platelet Volume 5.5 FL (6.5-10.1) L Neutrophils (%) (Auto) % (45.0-75.0) Lymphocytes (%) (Auto) % (20.0-45.0) Monocytes (%) (Auto) % (1.0-10.0) Eosinophils (%) (Auto) % (0.0-3.0) Basophils (%) (Auto) % (0.0-2.0) Differential Total Cells Counted 100 Neutrophils % (Manual) 61 % (45-75) Lymphocytes % (Manual) 18 % (20-45) L Monocytes % (Manual) 16 % (1-10) H Eosinophils % (Manual) 3 % (0-3) Basophils % (Manual) 1 % (0-2) Band Neutrophils 1 % (0-8) Nucleated Red Blood Cells 5 /100 WBC Platelet Estimate Adequate Platelet Morphology Normal Polychromasia 1+ Hypochromasia 1+ Anisocytosis 1+ Microcytosis 1+ Target Cells 1+ Stomatocytes 1+ Sodium Level 134 mEQ/L (135-145) L Potassium Level 2.8 mEQ/L (3.4-4.9) L Chloride Level 93 mEQ/L (98-107) L Carbon Dioxide Level 27 mEQ/L (20-30) Anion Gap 14 (5-15) Blood Urea Nitrogen 10 mg/dL (7-23) Creatinine 0.6 mg/dL (0.5-0.9) Estimat Glomerular Filtration Rate > 60 mL/min (>60) Glucose Level 123 mg/dL (74-106) H Calcium Level 7.7 mg/dL (8.6-10.2) L Magnesium Level 1.9 mg/dL (1.7-2.5) Total Bilirubin 2.3 mg/dL (0.0-1.2) H Direct Bilirubin 1.4 mg/dL (0.1-0.3) H Aspartate Amino Transf (AST/SGOT) 648 U/L (5-40) H Alanine Aminotransferase (ALT/SGPT) 368 U/L (3-33) H Alkaline Phosphatase 391 U/L (35-104) H Total Protein 6.5 g/dL (6.6-8.7) L Albumin 2.6 g/dL (3.5-5.2) L Globulin 3.9 g/dL Albumin/Globulin Ratio 0.6 (1.0-2.7) L Amylase Level 37 U/L (10-110) Lipase 70 U/L (< 60) H Microbiology Date/Time Source Procedure Growth Status 12/18/16 03:34 Stool Clostridium difficile Toxin Assay - Final Complete Objective HEENT: Atraumatic and normocephalic. Pupils are equal, round, and reactive to light and accommodation. Extraocular muscles intact. NECK: JVP is 5 centimeter. No carotid bruit. Carotid upstrokes 2+ bilaterally. CARDIOVASCULAR: Normal S1 and S2. Regular rate and rhythm. Tachycardic. No murmurs, gallops, or rubs. LUNGS: Clear to auscultation bilaterally. The patient has no wheezing. ABDOMEN: Soft, nontender, and nondistended. No hepatosplenomegaly. Positive bowel sounds. EXTREMITIES: There is swelling, erythema, and discharge from the axillary area, right greater than left. There is no edema, clubbing or cyanosis on the lower extremities. MARYA LOYOLA Dec 19, 2016 23:49
[2016-12-20] VITALS (7 sets, daily range): BP systolic 103–115; BP diastolic 57–77
[2016-12-20] MEDS: Norco 5mg/325mg tab ORAL PRN ×2 (00:38→20:19)
[2016-12-20] MEDS ORDERED: Norco 5mg/325mg tab ORAL PRN (03:15)
[2016-12-20] MEDS: D5NS 1,000 ML IV SCH (03:28)
[2016-12-20] MEDS: Propranolol 10mg tab ORAL SCH ×3 (05:36→21:52)
[2016-12-20 06:28] LABS: MEAN CORPUSCULAR HEMOGLOBIN 39.2 PG (27.0-31.0); MEAN CORPUSCULAR HGB CONC 32.1 G/DL (32.0-36.0); MEAN CORPUSCULAR VOLUME 122 FL (80-99); MEAN PLATELET VOLUME 5.4 FL (6.5-10.1); PLATELET COUNT 395 K/UL (150-450); RED CELL DISTRIBUTION WIDTH 17.5 % (11.6-14.8); WHITE BLOOD COUNT 5.8 K/UL (4.8-10.8)
[2016-12-20 06:53] LABS: ALANINE AMINOTRANSFERASE 310 U/L (3-33); ALBUMIN/GLOBULIN RATIO 0.6 (1.0-2.7); ANION GAP 10 (5-15); ASPARTATE AMINO TRANSFERASE 528 U/L (5-40); CALCIUM 7.9 mg/dL (8.6-10.2); CARBON DIOXIDE 28 mEQ/L (20-30); CHLORIDE 98 mEQ/L (98-107); CREATININE 0.4 mg/dL (0.5-0.9); GLOMERULAR FILTRATION RATE > 60 mL/min (>60); HEMOLYSIS 0; POTASSIUM 3.1 mEQ/L (3.4-4.9); SODIUM 136 mEQ/L (135-145); TOTAL PROTEIN 6.4 g/dL (6.6-8.7)
[2016-12-20 07:26] LABS: BILIRUBIN,DIRECT 0.9 mg/dL (0.1-0.3)
--- NOTE | 2016-12-20 08:51 | General Progress Note ---
Assessment/Plan Assessment/Plan (1) Intractable pain (2) Hydradenitis (4) Lumbar DDD (5) Lumbar Spondylosis (6) Morbid obesity h/o gastric sleeve surgery (7) Abdominal pain (8) Acute pancreatitis The patient will be continued on [place] and started on Morphine 4mg SubQ Q4H PRN severe pain. The patient was discussed with Dr. Art and Dr. Art concurred. Subjective Date patient seen: Dec 20, 2016 Time patient seen: 07:15 - am Allergies: Coded Allergies: IBUPROFEN (Verified Allergy, Severe, Anaphylaxis, 06/12/16) swollen face and lips NSAIDS (NON-STEROIDAL ANTI-INFLAMMA (Verified Allergy, Severe, Anaphylaxis , 06/12/16) swollen face and lips Uncoded Allergies: NSAIDS include Ibuprofen (Adverse Reaction, Severe, Anaphylaxis, 06/11/16) Swollen face and lip Subjective REVIEW OF SYSTEMS: Denies rash, fever, chills, sweating, dizziness, drowsiness, blurred vision, sore throat, or change in her weight. No shortness of breath or chest pain. No nausea or vomiting at this time. No bowel or bladder incontinence. No dysuria. She is complaining of abdominal pain, back pain, right armpit pain, and lower extremity pain. SUBJECTIVE: Pt has been seen on prior admission and now has been admitted under the care of Dr. Olvera due to abdominal pain caused by pancreatitis. On [place] with minimal pain relief. We were consulted so patient would have adequate pain control while here in the hospital. Objective Last 24 Hour Vital Signs Date Time Temp Pulse Resp B/P Pulse Ox O2 Delivery O2 Flow Rate FiO2 12/20/16 05:36 52 108/57 12/20/16 04:00 98.1 52 20 108/57 100 Room Air 12/20/16 00:00 98.1 85 20 103/61 98 Room Air 12/19/16 22:00 86 95/65 12/19/16 20:00 98.1 86 20 95/65 100 Room Air 12/19/16 18:00 95/60 12/19/16 16:00 98.0 82 18 95/60 98 Room Air 12/19/16 14:00 88 105/73 12/19/16 12:55 90/61 12/19/16 12:00 97.7 65 16 82/52 98 12/19/16 09:00 92/60 Intake and Output 12/19/16 12/20/16 19:00 07:00 Intake Total 480 ml 350 ml Output Total 600 ml 500 ml Balance -120 ml -150 ml Intake Oral 480 ml 350 ml Output Urine Total 600 ml 500 ml # Voids 3 2 # Bowel Movements 1 Laboratory Tests 12/20/16 05:30: White Blood Count 5.8, Red Blood Count 2.30L, Hemoglobin 9.0L, Hematocrit 28.0L , Mean Corpuscular Volume 122H, Mean Corpuscular Hemoglobin 39.2H, Mean Corpuscular Hemoglobin Concent 32.1, Red Cell Distribution Width 17.5H, Platelet Count 395, Mean Platelet Volume 5.4L, Neutrophils (%) (Auto) , Lymphocytes (%) (Auto) , Monocytes (%) (Auto) , Eosinophils (%) (Auto) , Basophils (%) (Auto) , Sodium Level 136, Potassium Level 3.1L, Chloride Level 98 , Carbon Dioxide Level 28, Anion Gap 10, Blood Urea Nitrogen 8, Creatinine 0.4L , Estimat Glomerular Filtration Rate > 60, Glucose Level 100, Calcium Level 7.9L , Total Bilirubin 1.6H, Direct Bilirubin 0.9H, Aspartate Amino Transf (AST/SGOT ) 528H, Alanine Aminotransferase (ALT/SGPT) 310H, Alkaline Phosphatase 453H, Total Protein 6.4L, Albumin 2.4L, Globulin 4.0, Albumin/Globulin Ratio 0.6L Height (Feet): 5 Height (Inches): 6.00 Weight (Pounds): 217 Objective PHYSICAL EXAMINATION: GENERAL: Alert, awake, and oriented x3. HEENT: PERRLA. NECK: Range of motion is full in all directions. No tenderness. No adenopathy. LUNGS: Clear. HEART: Regular. ABDOMEN: Tenderness to palpation. BACK: Range of motion is decreased in flexion and extension with tenderness to paraspinal muscles and trapezial muscles. EXTREMITIES: Motor is intact. No cyanosis. No clubbing. NEURO: No focal deficit OMARI LAU Dec 20, 2016 08:51
[2016-12-20] MEDS: Cephalexin 500mg cap ORAL SCH ×4 (09:33→20:19)
[2016-12-20] MEDS: Thiamine 100mg tab ORAL SCH (09:33)
[2016-12-20] MEDS: Fluconazole 100mg tab ORAL SCH (09:34)
[2016-12-20] MEDS: Heparin 5000 units/ml inj SUBQ SCH ×2 (09:35→20:21)
--- NOTE | 2016-12-20 13:41 | Nephrology Progress Note ---
Assessment/Plan Assessment 1. Hypovolemic hyponatremia resolved 2. Severe acidosis, which at this point is improving. 3. Acute renal failure. 4. Acute tubular necrosis. 5. hypokalemia . 6. Hypocalcemia. . Severe adenitis under the arm and abdominal wall . Plan plan to continue NS.9 monitoring electrolyte avoid NSAID iv antibiotic replace k check mg level Subjective Constitutional: Reports: malaise, no symptoms, weakness HEENT: Reports: mouth pain, no symptoms Genitourinary: Reports: no symptoms Neurologic/Psychiatric: Reports: no symptoms Subjective alert and awake feeling better Objective Objective Last 24 Hour Vital Signs Date Time Temp Pulse Resp B/P Pulse Ox O2 Delivery O2 Flow Rate FiO2 12/20/16 13:14 103/61 12/20/16 12:00 96.4 88 17 103/61 99 Room Air 12/20/16 09:36 106/60 12/20/16 08:00 97.2 75 16 106/60 100 Room Air 12/20/16 05:36 52 108/57 12/20/16 04:00 98.1 52 20 108/57 100 Room Air 12/20/16 00:00 98.1 85 20 103/61 98 Room Air 12/19/16 22:00 86 95/65 12/19/16 20:00 98.1 86 20 95/65 100 Room Air 12/19/16 18:00 95/60 12/19/16 16:00 98.0 82 18 95/60 98 Room Air 12/19/16 14:00 88 105/73 Intake and Output 12/19/16 12/20/16 19:00 07:00 Intake Total 480 ml 350 ml Output Total 600 ml 500 ml Balance -120 ml -150 ml Intake Oral 480 ml 350 ml Output Urine Total 600 ml 500 ml # Voids 3 2 # Bowel Movements 1 Laboratory Tests 12/20/16 05:30: White Blood Count 5.8, Red Blood Count 2.30L, Hemoglobin 9.0L, Hematocrit 28.0L , Mean Corpuscular Volume 122H, Mean Corpuscular Hemoglobin 39.2H, Mean Corpuscular Hemoglobin Concent 32.1, Red Cell Distribution Width 17.5H, Platelet Count 395, Mean Platelet Volume 5.4L, Neutrophils (%) (Auto) , Lymphocytes (%) (Auto) , Monocytes (%) (Auto) , Eosinophils (%) (Auto) , Basophils (%) (Auto) , Sodium Level 136, Potassium Level 3.1L, Chloride Level 98 , Carbon Dioxide Level 28, Anion Gap 10, Blood Urea Nitrogen 8, Creatinine 0.4L , Estimat Glomerular Filtration Rate > 60, Glucose Level 100, Calcium Level 7.9L , Total Bilirubin 1.6H, Direct Bilirubin 0.9H, Aspartate Amino Transf (AST/SGOT ) 528H, Alanine Aminotransferase (ALT/SGPT) 310H, Alkaline Phosphatase 453H, Total Protein 6.4L, Albumin 2.4L, Globulin 4.0, Albumin/Globulin Ratio 0.6L Height (Feet): 5 Height (Inches): 6.00 Weight (Pounds): 217 Objective HEAD AND NECK: No JVP. No LAD. No thyromegaly. Extraocular movements intact. Pupils are reactive to light and accommodation. LUNGS: Decreased breathing sounds on both sides. CARDIAC: Regular rate and rhythm. S1 and S2. No murmur. No rub. ABDOMEN: Hidradenitis on right axilla and abdominal wall drainage and EXTREMITIES: No edema. No clubbing. No cyanosis. NEUROLOGIC: Cranial nerves II to XII within normal limits. Extraocular movements are intact. HERMINIO SAHA Dec 20, 2016 13:41
[2016-12-20] MEDS ORDERED: Tubing IV Secondary IV ONE (14:29)
[2016-12-20] MEDS ORDERED: D5NS 1000ml IV ONE (14:29)
--- NOTE | 2016-12-20 14:43 | Pulmonology Progress Note ---
Assessment/Plan Problems: (1) Metabolic acidosis (2) Hyponatremia (3) Alcoholic pancreatitis (4) Cellulitis (5) Hydradenitis (6) Anxiety Assessment/Plan improving IV hydration, symptomatic treatment abx for cellulitis of skin folds dvt porphylaxis hyponatremia w/u PT/ptt dc planning for rehab placement all notes and meds, labs reviewed. Subjective Constitutional: Reports: no symptoms HEENT: Repors: no symptoms Respiratory: Reports: no symptoms Allergies: Coded Allergies: IBUPROFEN (Verified Allergy, Severe, Anaphylaxis, 06/12/16) swollen face and lips NSAIDS (NON-STEROIDAL ANTI-INFLAMMA (Verified Allergy, Severe, Anaphylaxis , 06/12/16) swollen face and lips Uncoded Allergies: NSAIDS include Ibuprofen (Adverse Reaction, Severe, Anaphylaxis, 06/11/16) Swollen face and lip Objective Last 24 Hour Vital Signs Date Time Temp Pulse Resp B/P Pulse Ox O2 Delivery O2 Flow Rate FiO2 12/20/16 13:14 103/61 12/20/16 12:00 96.4 88 17 103/61 99 Room Air 12/20/16 09:36 106/60 12/20/16 08:00 97.2 75 16 106/60 100 Room Air 12/20/16 05:36 52 108/57 12/20/16 04:00 98.1 52 20 108/57 100 Room Air 12/20/16 00:00 98.1 85 20 103/61 98 Room Air 12/19/16 22:00 86 95/65 12/19/16 20:00 98.1 86 20 95/65 100 Room Air 12/19/16 18:00 95/60 12/19/16 16:00 98.0 82 18 95/60 98 Room Air Intake and Output 12/19/16 12/20/16 19:00 07:00 Intake Total 480 ml 350 ml Output Total 600 ml 500 ml Balance -120 ml -150 ml Intake Oral 480 ml 350 ml Output Urine Total 600 ml 500 ml # Voids 3 2 # Bowel Movements 1 General Appearance: WD/WN HEENT: normocephalic, atraumatic Respiratory/Chest: chest wall non-tender, lungs clear Breasts: no masses Cardiovascular: normal peripheral pulses Abdomen: normal bowel sounds, no organomegaly Extremities: no cyanosis, no clubbing Skin: no rash Microbiology Date/Time Source Procedure Growth Status 12/18/16 03:34 Stool Clostridium difficile Toxin Assay - Final Complete Laboratory Tests 12/20/16 05:30: White Blood Count 5.8, Red Blood Count 2.30L, Hemoglobin 9.0L, Hematocrit 28.0L , Mean Corpuscular Volume 122H, Mean Corpuscular Hemoglobin 39.2H, Mean Corpuscular Hemoglobin Concent 32.1, Red Cell Distribution Width 17.5H, Platelet Count 395, Mean Platelet Volume 5.4L, Neutrophils (%) (Auto) , Lymphocytes (%) (Auto) , Monocytes (%) (Auto) , Eosinophils (%) (Auto) , Basophils (%) (Auto) , Sodium Level 136, Potassium Level 3.1L, Chloride Level 98 , Carbon Dioxide Level 28, Anion Gap 10, Blood Urea Nitrogen 8, Creatinine 0.4L , Estimat Glomerular Filtration Rate > 60, Glucose Level 100, Calcium Level 7.9L , Total Bilirubin 1.6H, Direct Bilirubin 0.9H, Aspartate Amino Transf (AST/SGOT ) 528H, Alanine Aminotransferase (ALT/SGPT) 310H, Alkaline Phosphatase 453H, Total Protein 6.4L, Albumin 2.4L, Globulin 4.0, Albumin/Globulin Ratio 0.6L Current Medications Medications (Trade) Dose Ordered Sig/Payam Route PRN Reason Start Time Stop Time Status Last Admin Dose Admin Acetaminophen (Tylenol) 650 mg Q4H PRN ORAL fever 12/16/16 17:30 01/15/17 17:29 Acetaminophen/ Hydrocodone Bitart ([place] 5/325) 1 tab Q6H PRN ORAL For pain 4~6 /10 12/20/16 03:15 12/27/16 03:14 12/20/16 00:38 Al Hydroxide/Mg Hydroxide (Mylanta II) 30 ml Q6H PRN ORAL dyspepsia 12/16/16 17:30 01/15/17 17:29 12/17/16 10:49 Cephalexin (Keflex) 500 mg FOUR TIMES A DAY ORAL 12/19/16 20:00 12/26/16 19:59 12/20/16 13:14 Chlordiazepoxide (Librium) 25 mg Q6H PRN ORAL Agitation 12/16/16 17:30 12/23/16 17:29 Dextrose (Dextrose 50%) STAT PRN IV Hypoglycemia 12/16/16 17:30 01/15/17 17:29 Dextrose/Sodium Chloride (D5ns) 1,000 ml @ 75 mls/hr [id number] IV 12/18/16 12:15 01/17/17 12:14 12/19/16 02:13 Diazepam (Valium) 10 mg Q4H PRN ORAL anxiety agitation 12/18/16 18:00 12/25/16 17:59 12/20/16 13:15 Diphenhydramine HCl (Benadryl) 25 mg Q6H PRN ORAL Itching 12/18/16 17:00 01/17/17 16:59 12/19/16 12:54 Doxycycline Monohydrate (Vibramycin) 100 mg EVERY 12 HOURS ORAL 12/19/16 20:00 12/26/16 19:59 12/20/16 09:33 Fluconazole (Diflucan) 200 mg DAILY ORAL 12/17/16 16:00 12/24/16 15:59 12/20/16 09:34 Fluoxetine HCl (PROzac) 20 mg DAILY ORAL 12/19/16 09:00 01/18/17 08:59 12/20/16 09:33 Folic Acid (Folate) 1 mg DAILY ORAL 12/19/16 09:00 01/18/17 08:59 12/20/16 09:37 Heparin Sodium (Porcine) (Heparin 5000 units/ml) 5,000 units EVERY 12 HOURS SUBQ 12/16/16 21:00 01/15/17 20:59 12/20/16 09:35 Lorazepam (Ativan 2mg/ml 1ml) 2 mg Q1H PRN IV seizures 12/16/16 18:00 12/23/16 17:59 Morphine Sulfate (Morphine Sulfate) 4 mg Q4H PRN SUBQ Severe Pain (Pain Scale 7-10) 12/20/16 10:30 12/27/16 10:29 Ondansetron HCl (Zofran) 4 mg Q6H PRN IVP Nausea & Vomiting 12/16/16 17:30 01/15/17 17:29 Pentoxifylline 400 mg 400 mg THREE TIMES A DAY ORAL 12/18/16 09:00 01/17/17 08:59 12/20/16 13:14 Polyethylene Glycol (Miralax) 17 gm HSPRN PRN ORAL Constipation 12/16/16 17:30 01/15/17 17:29 Potassium Chloride (K-Dur) 40 meq DAILY ORAL 12/21/16 09:00 01/20/17 08:59 Propranolol HCl (Inderal) 20 mg Q8HR ORAL 12/18/16 06:00 01/17/17 05:59 12/20/16 05:36 Ranitidine HCl (Zantac) 150 mg BEDTIME ORAL 12/18/16 21:00 01/17/17 20:59 12/19/16 22:01 Thiamine HCl (Vitamin B1) 100 mg DAILY ORAL 12/19/16 09:00 01/18/17 08:59 12/20/16 09:33 Zolpidem Tartrate (Ambien) 5 mg HSPRN PRN ORAL Insomnia 12/16/16 17:30 01/15/17 17:29 DAVID CLARKE Dec 20, 2016 14:43
--- NOTE | 2016-12-20 15:01 | GI Progress Note ---
Assessment/Plan Problems: (1) Alcoholic pancreatitis ICD Codes: K85.20 - Alcohol induced acute pancreatitis without necrosis or infection SNOMED: 396322519 (2) Fatty liver ICD Codes: K76.0 - Fatty (change of) liver, not elsewhere classified SNOMED: 963658498 (3) Acute alcohol intoxication ICD Codes: F10.129 - Alcohol abuse with intoxication, unspecified SNOMED: 01012692 (4) Abdominal pain ICD Codes: R10.9 - Unspecified abdominal pain SNOMED: 41433106 Status: stable Status Narrative Discussed with Dr. Jones. Assessment/Plan OB stool negative hepatitis panel >> negative tolerating diet discreminating factor calculated at 19 so no need for steroids elevated LFTs >> LUPE ? needs psych eval pentoxifylline monitor H&H, transfuse prn H2B repeat LFTs, lipase pain mgmt fu labs Subjective Subjective abdominal pain wants PICC Objective Last 24 Hour Vital Signs Date Time Temp Pulse Resp B/P Pulse Ox O2 Delivery O2 Flow Rate FiO2 12/20/16 13:14 103/61 12/20/16 12:00 96.4 88 17 103/61 99 Room Air 12/20/16 09:36 106/60 12/20/16 08:00 97.2 75 16 106/60 100 Room Air 12/20/16 05:36 52 108/57 12/20/16 04:00 98.1 52 20 108/57 100 Room Air 12/20/16 00:00 98.1 85 20 103/61 98 Room Air 12/19/16 22:00 86 95/65 12/19/16 20:00 98.1 86 20 95/65 100 Room Air 12/19/16 18:00 95/60 12/19/16 16:00 98.0 82 18 95/60 98 Room Air Intake and Output 12/19/16 12/20/16 19:00 07:00 Intake Total 480 ml 350 ml Output Total 600 ml 500 ml Balance -120 ml -150 ml Intake Oral 480 ml 350 ml Output Urine Total 600 ml 500 ml # Voids 3 2 # Bowel Movements 1 Laboratory Tests Test 12/20/16 05:30 White Blood Count 5.8 K/UL (4.8-10.8) Red Blood Count 2.30 M/UL (4.20-5.40) L Hemoglobin 9.0 G/DL (12.0-16.0) L Hematocrit 28.0 % (37.0-47.0) L Mean Corpuscular Volume 122 FL (80-99) H Mean Corpuscular Hemoglobin 39.2 PG (27.0-31.0) H Mean Corpuscular Hemoglobin Concent 32.1 G/DL (32.0-36.0) Red Cell Distribution Width 17.5 % (11.6-14.8) H Platelet Count 395 K/UL (150-450) Mean Platelet Volume 5.4 FL (6.5-10.1) L Neutrophils (%) (Auto) % (45.0-75.0) Lymphocytes (%) (Auto) % (20.0-45.0) Monocytes (%) (Auto) % (1.0-10.0) Eosinophils (%) (Auto) % (0.0-3.0) Basophils (%) (Auto) % (0.0-2.0) Sodium Level 136 mEQ/L (135-145) Potassium Level 3.1 mEQ/L (3.4-4.9) L Chloride Level 98 mEQ/L (98-107) Carbon Dioxide Level 28 mEQ/L (20-30) Anion Gap 10 (5-15) Blood Urea Nitrogen 8 mg/dL (7-23) Creatinine 0.4 mg/dL (0.5-0.9) L Estimat Glomerular Filtration Rate > 60 mL/min (>60) Glucose Level 100 mg/dL (74-106) Calcium Level 7.9 mg/dL (8.6-10.2) L Total Bilirubin 1.6 mg/dL (0.0-1.2) H Direct Bilirubin 0.9 mg/dL (0.1-0.3) H Aspartate Amino Transf (AST/SGOT) 528 U/L (5-40) H Alanine Aminotransferase (ALT/SGPT) 310 U/L (3-33) H Alkaline Phosphatase 453 U/L (35-104) H Total Protein 6.4 g/dL (6.6-8.7) L Albumin 2.4 g/dL (3.5-5.2) L Globulin 4.0 g/dL Albumin/Globulin Ratio 0.6 (1.0-2.7) L Height (Feet): 5 Height (Inches): 6.00 Weight (Pounds): 217 General Appearance: no apparent distress, alert Cardiovascular: normal rate Respiratory/Chest: normal breath sounds, no respiratory distress Abdominal Exam: normal bowel sounds, non tender, soft Extremities: non-tender Nayeli Box N.P. Dec 20, 2016 15:01
--- NOTE | 2016-12-20 15:46 | General Progress Note ---
Assessment/Plan Problem List: (1) Acute alcohol intoxication ICD Codes: F10.129 - Alcohol abuse with intoxication, unspecified SNOMED: 59651696 (2) Severe anemia ICD Codes: D64.9 - Anemia, unspecified SNOMED: 823089015 (3) Weak ICD Codes: R53.1 - Weakness SNOMED: 77640915 (4) Abdominal pain ICD Codes: R10.9 - Unspecified abdominal pain SNOMED: 68900605 (5) Hydradenitis ICD Codes: L73.2 - Hidradenitis suppurativa SNOMED: 49987344 (6) Sepsis ICD Codes: A41.9 - Sepsis, unspecified organism SNOMED: 59764872 (7) UTI (urinary tract infection) ICD Codes: N39.0 - Urinary tract infection, site not specified SNOMED: 19457325 (8) Acute pancreatitis ICD Codes: K85.90 - Acute pancreatitis without necrosis or infection, unspecified SNOMED: 043124815 (9) Generalized weakness ICD Codes: R53.1 - Weakness SNOMED: 46846786 Status: stable, progressing, tolerating diet Assessment/Plan ot pt diet detox pain control abx cbc bmp am dc plan snf Subjective Allergies: Coded Allergies: IBUPROFEN (Verified Allergy, Severe, Anaphylaxis, 06/12/16) swollen face and lips NSAIDS (NON-STEROIDAL ANTI-INFLAMMA (Verified Allergy, Severe, Anaphylaxis , 06/12/16) swollen face and lips Uncoded Allergies: NSAIDS include Ibuprofen (Adverse Reaction, Severe, Anaphylaxis, 06/11/16) Swollen face and lip All Systems: reviewed and negative except above Subjective sl nausea Objective Last 24 Hour Vital Signs Date Time Temp Pulse Resp B/P Pulse Ox O2 Delivery O2 Flow Rate FiO2 12/20/16 14:00 87 98/60 12/20/16 13:14 103/61 12/20/16 12:00 96.4 88 17 103/61 99 Room Air 12/20/16 09:36 106/60 12/20/16 08:00 97.2 75 16 106/60 100 Room Air 12/20/16 05:36 52 108/57 12/20/16 04:00 98.1 52 20 108/57 100 Room Air 12/20/16 00:00 98.1 85 20 103/61 98 Room Air 12/19/16 22:00 86 95/65 12/19/16 20:00 98.1 86 20 95/65 100 Room Air 12/19/16 18:00 95/60 12/19/16 16:00 98.0 82 18 95/60 98 Room Air Intake and Output 12/19/16 12/20/16 19:00 07:00 Intake Total 480 ml 350 ml Output Total 600 ml 500 ml Balance -120 ml -150 ml Intake Oral 480 ml 350 ml Output Urine Total 600 ml 500 ml # Voids 3 2 # Bowel Movements 1 Laboratory Tests 12/20/16 05:30: White Blood Count 5.8, Red Blood Count 2.30L, Hemoglobin 9.0L, Hematocrit 28.0L , Mean Corpuscular Volume 122H, Mean Corpuscular Hemoglobin 39.2H, Mean Corpuscular Hemoglobin Concent 32.1, Red Cell Distribution Width 17.5H, Platelet Count 395, Mean Platelet Volume 5.4L, Neutrophils (%) (Auto) , Lymphocytes (%) (Auto) , Monocytes (%) (Auto) , Eosinophils (%) (Auto) , Basophils (%) (Auto) , Sodium Level 136, Potassium Level 3.1L, Chloride Level 98 , Carbon Dioxide Level 28, Anion Gap 10, Blood Urea Nitrogen 8, Creatinine 0.4L , Estimat Glomerular Filtration Rate > 60, Glucose Level 100, Calcium Level 7.9L , Total Bilirubin 1.6H, Direct Bilirubin 0.9H, Aspartate Amino Transf (AST/SGOT ) 528H, Alanine Aminotransferase (ALT/SGPT) 310H, Alkaline Phosphatase 453H, Total Protein 6.4L, Albumin 2.4L, Globulin 4.0, Albumin/Globulin Ratio 0.6L Height (Feet): 5 Height (Inches): 6.00 Weight (Pounds): 217 General Appearance: lethargic EENT: normal ENT inspection Neck: normal alignment Cardiovascular: normal peripheral pulses, normal rate, regular rhythm Respiratory/Chest: chest wall non-tender, lungs clear, normal breath sounds Extremities: normal inspection Edema: no edema noted Arm (L), no edema noted Arm (R), no edema noted Leg (L), no edema noted Leg (R), no edema noted Pedal (L), no edema noted Pedal (R), no edema noted Generalized Neurologic: responsive, motor weakness Skin: normal pigmentation, warm/dry PIETER GAUTHIER Dec 20, 2016 15:46
--- NOTE | 2016-12-20 15:53 | Infectious Diseases Prog Note ---
Assessment/Plan Problems: (1) UTI (urinary tract infection) Assessment & Plan: culture grew yeast and Klebsiella pneumonia , on cefepime and fluconazol for two weeks . (2) Sepsis Assessment & Plan: blood culture is negative . continue cefepime with clindamycin for two weeks (3) Acute pancreatitis Assessment & Plan: due to alcohol abuse, continue hydration, and pain management, monitor lipase, advance diet as tolerated (4) Hidradenitis suppurativa Assessment & Plan: on cefepime and clindamycin , continue local wound care , follow up with general surgery Subjective Constitutional: Reports: no symptoms HEENT: Reports: no symptoms Respiratory: Reports: no symptoms Breasts: Reports: no symptoms Cardiovascular: Reports: no symptoms Gastrointestinal/Abdominal: Reports: nausea Genitourinary: Reports: no symptoms Psychiatric: Reports: no symptoms Skin: Reports: ulcer Endocrine: Reports: no symptoms Allergies: Coded Allergies: IBUPROFEN (Verified Allergy, Severe, Anaphylaxis, 06/12/16) swollen face and lips NSAIDS (NON-STEROIDAL ANTI-INFLAMMA (Verified Allergy, Severe, Anaphylaxis , 06/12/16) swollen face and lips Uncoded Allergies: NSAIDS include Ibuprofen (Adverse Reaction, Severe, Anaphylaxis, 06/11/16) Swollen face and lip Objective Vital Signs Last 24 Hour Vital Signs Date Time Temp Pulse Resp B/P Pulse Ox O2 Delivery O2 Flow Rate FiO2 12/20/16 14:00 87 98/60 12/20/16 13:14 103/61 12/20/16 12:00 96.4 88 17 103/61 99 Room Air 12/20/16 09:36 106/60 12/20/16 08:00 97.2 75 16 106/60 100 Room Air 12/20/16 05:36 52 108/57 12/20/16 04:00 98.1 52 20 108/57 100 Room Air 12/20/16 00:00 98.1 85 20 103/61 98 Room Air 12/19/16 22:00 86 95/65 12/19/16 20:00 98.1 86 20 95/65 100 Room Air 12/19/16 18:00 95/60 12/19/16 16:00 98.0 82 18 95/60 98 Room Air Height (Feet): 5 Height (Inches): 6.00 Weight (Pounds): 217 General Appearance: WD/WN, no acute distress HEENT: normocephalic, atraumatic, anicteric, mucous membranes moist, PERRL Respiratory/Chest: chest wall non-tender, lungs clear, normal breath sounds, no respiratory distress, no accessory muscle use Cardiovascular: normal peripheral pulses, normal rate, regular rhythm, no gallop/murmur, no JVD Abdomen: normal bowel sounds, soft, non tender, no organomegaly, non distended , no mass, no scars Extremities: no cyanosis, no clubbing Skin: no rash, no lesions, rash Microbiology Date/Time Source Procedure Growth Status 12/18/16 03:34 Stool Clostridium difficile Toxin Assay - Final Complete Laboratory Tests Test 12/20/16 05:30 White Blood Count 5.8 K/UL (4.8-10.8) Red Blood Count 2.30 M/UL (4.20-5.40) L Hemoglobin 9.0 G/DL (12.0-16.0) L Hematocrit 28.0 % (37.0-47.0) L Mean Corpuscular Volume 122 FL (80-99) H Mean Corpuscular Hemoglobin 39.2 PG (27.0-31.0) H Mean Corpuscular Hemoglobin Concent 32.1 G/DL (32.0-36.0) Red Cell Distribution Width 17.5 % (11.6-14.8) H Platelet Count 395 K/UL (150-450) Mean Platelet Volume 5.4 FL (6.5-10.1) L Neutrophils (%) (Auto) % (45.0-75.0) Lymphocytes (%) (Auto) % (20.0-45.0) Monocytes (%) (Auto) % (1.0-10.0) Eosinophils (%) (Auto) % (0.0-3.0) Basophils (%) (Auto) % (0.0-2.0) Sodium Level 136 mEQ/L (135-145) Potassium Level 3.1 mEQ/L (3.4-4.9) L Chloride Level 98 mEQ/L (98-107) Carbon Dioxide Level 28 mEQ/L (20-30) Anion Gap 10 (5-15) Blood Urea Nitrogen 8 mg/dL (7-23) Creatinine 0.4 mg/dL (0.5-0.9) L Estimat Glomerular Filtration Rate > 60 mL/min (>60) Glucose Level 100 mg/dL (74-106) Calcium Level 7.9 mg/dL (8.6-10.2) L Total Bilirubin 1.6 mg/dL (0.0-1.2) H Direct Bilirubin 0.9 mg/dL (0.1-0.3) H Aspartate Amino Transf (AST/SGOT) 528 U/L (5-40) H Alanine Aminotransferase (ALT/SGPT) 310 U/L (3-33) H Alkaline Phosphatase 453 U/L (35-104) H Total Protein 6.4 g/dL (6.6-8.7) L Albumin 2.4 g/dL (3.5-5.2) L Globulin 4.0 g/dL Albumin/Globulin Ratio 0.6 (1.0-2.7) L Current Medications Medications (Trade) Dose Ordered Sig/Payam Route PRN Reason Start Time Stop Time Status Last Admin Dose Admin Acetaminophen (Tylenol) 650 mg Q4H PRN ORAL fever 12/16/16 17:30 01/15/17 17:29 Acetaminophen/ Hydrocodone Bitart (Emerson 5/325) 1 tab Q6H PRN ORAL For pain 4~6 /10 12/20/16 03:15 12/27/16 03:14 12/20/16 00:38 Al Hydroxide/Mg Hydroxide (Mylanta II) 30 ml Q6H PRN ORAL dyspepsia 12/16/16 17:30 01/15/17 17:29 12/17/16 10:49 Cephalexin (Keflex) 500 mg FOUR TIMES A DAY ORAL 12/19/16 20:00 12/26/16 19:59 12/20/16 13:14 Chlordiazepoxide (Librium) 25 mg Q6H PRN ORAL Agitation 12/16/16 17:30 12/23/16 17:29 Dextrose (Dextrose 50%) STAT PRN IV Hypoglycemia 12/16/16 17:30 01/15/17 17:29 Dextrose/Sodium Chloride (D5ns) 1,000 ml @ 75 mls/hr [id number] IV 12/18/16 12:15 01/17/17 12:14 12/19/16 02:13 Diazepam (Valium) 10 mg Q4H PRN ORAL anxiety agitation 12/18/16 18:00 12/25/16 17:59 12/20/16 13:15 Diphenhydramine HCl (Benadryl) 25 mg Q6H PRN ORAL Itching 12/18/16 17:00 01/17/17 16:59 12/19/16 12:54 Doxycycline Monohydrate (Vibramycin) 100 mg EVERY 12 HOURS ORAL 12/19/16 20:00 12/26/16 19:59 12/20/16 09:33 Fluconazole (Diflucan) 200 mg DAILY ORAL 12/17/16 16:00 12/24/16 15:59 12/20/16 09:34 Fluoxetine HCl (PROzac) 20 mg DAILY ORAL 12/19/16 09:00 01/18/17 08:59 12/20/16 09:33 Folic Acid (Folate) 1 mg DAILY ORAL 12/19/16 09:00 01/18/17 08:59 12/20/16 09:37 Heparin Sodium (Porcine) (Heparin 5000 units/ml) 5,000 units EVERY 12 HOURS SUBQ 12/16/16 21:00 01/15/17 20:59 12/20/16 09:35 Lorazepam (Ativan 2mg/ml 1ml) 2 mg Q1H PRN IV seizures 12/16/16 18:00 12/23/16 17:59 Morphine Sulfate (Morphine Sulfate) 4 mg Q4H PRN SUBQ Severe Pain (Pain Scale 7-10) 12/20/16 10:30 12/27/16 10:29 Ondansetron HCl (Zofran) 4 mg Q6H PRN IVP Nausea & Vomiting 12/16/16 17:30 01/15/17 17:29 Pentoxifylline 400 mg 400 mg THREE TIMES A DAY ORAL 12/18/16 09:00 01/17/17 08:59 12/20/16 13:14 Polyethylene Glycol (Miralax) 17 gm HSPRN PRN ORAL Constipation 12/16/16 17:30 01/15/17 17:29 Potassium Chloride (K-Dur) 40 meq DAILY ORAL 12/21/16 09:00 01/20/17 08:59 Propranolol HCl (Inderal) 20 mg Q8HR ORAL 12/18/16 06:00 01/17/17 05:59 12/20/16 05:36 Ranitidine HCl (Zantac) 150 mg BEDTIME ORAL 12/18/16 21:00 01/17/17 20:59 12/19/16 22:01 Thiamine HCl (Vitamin B1) 100 mg DAILY ORAL 12/19/16 09:00 01/18/17 08:59 12/20/16 09:33 Zolpidem Tartrate (Ambien) 5 mg HSPRN PRN ORAL Insomnia 12/16/16 17:30 01/15/17 17:29 Brandan Rubin M.D. Dec 20, 2016 15:53
[2016-12-20] MEDS: Morphine Sulfate 4mg/ml Inj SUBQ PRN (16:00)
[2016-12-20] MEDS ORDERED: Ondansetron ODT 8mg tab ORAL PRN (17:00)
--- NOTE | 2016-12-20 23:30 | Cardiology Progress Note ---
Assessment/Plan Assessment/Plan 1. Sinus tachycardia, resolved, possibly due to ETOH withdrawal syndrome vs SIRS due to acute pancreatitis, will continue propranolol. 2. SIRS 3. Acute pancreatitis 4. Gap acidosis 5. Hypotension, ?third-spacing, pain meds, hydration Subjective Subjective No cardiac events reported. No chest pain or SOB reported. Objective Last 24 Hour Vital Signs Date Time Temp Pulse Resp B/P Pulse Ox O2 Delivery O2 Flow Rate FiO2 12/20/16 23:20 97.6 86 18 110/70 99 Room Air 12/20/16 21:52 89 115/77 12/20/16 20:00 97.7 89 18 115/77 100 Room Air 12/20/16 18:42 110/64 12/20/16 16:00 97.4 91 20 110/64 96 Room Air 12/20/16 14:00 87 98/60 12/20/16 13:14 103/61 12/20/16 12:00 96.4 88 17 103/61 99 Room Air 12/20/16 09:36 106/60 12/20/16 08:00 97.2 75 16 106/60 100 Room Air 12/20/16 05:36 52 108/57 12/20/16 04:00 98.1 52 20 108/57 100 Room Air 12/20/16 00:00 98.1 85 20 103/61 98 Room Air Intake and Output 12/19/16 12/20/16 19:00 07:00 Intake Total 480 ml 350 ml Output Total 600 ml 500 ml Balance -120 ml -150 ml Intake Oral 480 ml 350 ml Output Urine Total 600 ml 500 ml # Voids 3 2 # Bowel Movements 1 Laboratory Tests Test 12/20/16 05:30 White Blood Count 5.8 K/UL (4.8-10.8) Red Blood Count 2.30 M/UL (4.20-5.40) L Hemoglobin 9.0 G/DL (12.0-16.0) L Hematocrit 28.0 % (37.0-47.0) L Mean Corpuscular Volume 122 FL (80-99) H Mean Corpuscular Hemoglobin 39.2 PG (27.0-31.0) H Mean Corpuscular Hemoglobin Concent 32.1 G/DL (32.0-36.0) Red Cell Distribution Width 17.5 % (11.6-14.8) H Platelet Count 395 K/UL (150-450) Mean Platelet Volume 5.4 FL (6.5-10.1) L Neutrophils (%) (Auto) % (45.0-75.0) Lymphocytes (%) (Auto) % (20.0-45.0) Monocytes (%) (Auto) % (1.0-10.0) Eosinophils (%) (Auto) % (0.0-3.0) Basophils (%) (Auto) % (0.0-2.0) Sodium Level 136 mEQ/L (135-145) Potassium Level 3.1 mEQ/L (3.4-4.9) L Chloride Level 98 mEQ/L (98-107) Carbon Dioxide Level 28 mEQ/L (20-30) Anion Gap 10 (5-15) Blood Urea Nitrogen 8 mg/dL (7-23) Creatinine 0.4 mg/dL (0.5-0.9) L Estimat Glomerular Filtration Rate > 60 mL/min (>60) Glucose Level 100 mg/dL (74-106) Calcium Level 7.9 mg/dL (8.6-10.2) L Total Bilirubin 1.6 mg/dL (0.0-1.2) H Direct Bilirubin 0.9 mg/dL (0.1-0.3) H Aspartate Amino Transf (AST/SGOT) 528 U/L (5-40) H Alanine Aminotransferase (ALT/SGPT) 310 U/L (3-33) H Alkaline Phosphatase 453 U/L (35-104) H Total Protein 6.4 g/dL (6.6-8.7) L Albumin 2.4 g/dL (3.5-5.2) L Globulin 4.0 g/dL Albumin/Globulin Ratio 0.6 (1.0-2.7) L Microbiology Date/Time Source Procedure Growth Status 12/18/16 03:34 Stool Clostridium difficile Toxin Assay - Final Complete Objective HEENT: Atraumatic and normocephalic. Pupils are equal, round, and reactive to light and accommodation. Extraocular muscles intact. NECK: JVP is 5 centimeter. No carotid bruit. Carotid upstrokes 2+ bilaterally. CARDIOVASCULAR: Normal S1 and S2. Regular rate and rhythm. Tachycardic. No murmurs, gallops, or rubs. LUNGS: Clear to auscultation bilaterally. The patient has no wheezing. ABDOMEN: Soft, nontender, and nondistended. No hepatosplenomegaly. Positive bowel sounds. EXTREMITIES: There is swelling, erythema, and discharge from the axillary area, right greater than left. There is no edema, clubbing or cyanosis on the lower extremities. MARYA LOYOLA Dec 20, 2016 23:30
--- NOTE | 2016-12-21 00:15 | Progress Note ---
DATE: 12/20/2016 SUBJECTIVE: The patient was found sitting in bed, in no acute distress, . Complained of anxiety and pain. The patient's withdrawal symptoms are well controlled. MENTAL STATUS EXAMINATION: The patient is alert and oriented to time, self, place, and situation she is in. Mood is depressed. Affect is constricted, congruent with mood. Thought process is linear. Thought content, no suicidal or homicidal ideation. ASSESSMENT: 1. Alcohol dependence. 2. Depression. PLAN: 1. The patient will be continued on fluoxetine and Librium. 2. She will be continued on Valium. 3. We will continue to follow and readjust the medication. Jeanne Swenson M.D. DR: GAVIOTA JOB#: [id number] CC:
[2016-12-21] MEDS: Morphine Sulfate 4mg/ml Inj SUBQ PRN ×3 (02:06→14:09)
[2016-12-21 04:00] VITALS: BP 117/77
[2016-12-21] MEDS: Propranolol 10mg tab ORAL SCH ×2 (05:40→14:09)
[2016-12-21 06:26] LABS: MEAN CORPUSCULAR HEMOGLOBIN 39.1 PG (27.0-31.0); MEAN CORPUSCULAR VOLUME 122 FL (80-99); PLATELET COUNT 498 K/UL (150-450); RED BLOOD COUNT 2.33 M/UL (4.20-5.40); RED CELL DISTRIBUTION WIDTH 17.9 % (11.6-14.8); WHITE BLOOD COUNT 5.2 K/UL (4.8-10.8)
[2016-12-21 06:47] LABS: ALANINE AMINOTRANSFERASE 256 U/L (3-33); ALBUMIN/GLOBULIN RATIO 0.6 (1.0-2.7); ANION GAP 9 (5-15); ASPARTATE AMINO TRANSFERASE 248 U/L (5-40); CALCIUM 8.3 mg/dL (8.6-10.2); CARBON DIOXIDE 28 mEQ/L (20-30); CHLORIDE 98 mEQ/L (98-107); CREATININE 0.5 mg/dL (0.5-0.9); GLOMERULAR FILTRATION RATE > 60 mL/min (>60); HEMOLYSIS 3; SODIUM 135 mEQ/L (135-145); TOTAL PROTEIN 6.1 g/dL (6.6-8.7)
[2016-12-21 07:03] LABS: BILIRUBIN,DIRECT 0.6 mg/dL (0.1-0.3)
[2016-12-21 08:00] VITALS: BP 103/71
[2016-12-21] MEDS: Heparin 5000 units/ml inj SUBQ SCH (08:15)
[2016-12-21] MEDS: Fluconazole 100mg tab ORAL SCH (08:18)
[2016-12-21] MEDS: Cephalexin 500mg cap ORAL SCH ×2 (08:19→13:19)
[2016-12-21] MEDS: Thiamine 100mg tab ORAL SCH (08:19)
[2016-12-21 08:33] LABS: EOSINOPHILS % (MANUAL) 2 % (0-3); LYMPHOCYTES % (MANUAL) 47 % (20-45); NEUTROPHILS % (MANUAL) 41 % (45-75); TOTAL CELLS COUNTED 100
--- NOTE | 2016-12-21 08:33 | General Progress Note ---
Assessment/Plan Assessment/Plan (1) Intractable pain (2) Hydradenitis (4) Lumbar DDD (5) Lumbar Spondylosis (6) Morbid obesity h/o gastric sleeve surgery (7) Abdominal pain (8) Acute pancreatitis The patient will be continued on [place] and Morphine. The patient was discussed with Dr. Art and Dr. Art concurred. Subjective Date patient seen: Dec 21, 2016 Time patient seen: 07:00 - am Allergies: Coded Allergies: IBUPROFEN (Verified Allergy, Severe, Anaphylaxis, 06/12/16) swollen face and lips NSAIDS (NON-STEROIDAL ANTI-INFLAMMA (Verified Allergy, Severe, Anaphylaxis , 06/12/16) swollen face and lips Uncoded Allergies: NSAIDS include Ibuprofen (Adverse Reaction, Severe, Anaphylaxis, 06/11/16) Swollen face and lip Subjective REVIEW OF SYSTEMS: Denies rash, fever, chills, sweating, dizziness, drowsiness, blurred vision, sore throat, or change in her weight. No shortness of breath or chest pain. No nausea or vomiting at this time. No bowel or bladder incontinence. No dysuria. She is complaining of abdominal pain, back pain, right armpit pain, and lower extremity pain. SUBJECTIVE: Pt is in bed in no signs of pain or distress at this time tolerating the pain on the Morphine and [place]. Objective Last 24 Hour Vital Signs Date Time Temp Pulse Resp B/P (MAP) Pulse Ox O2 Delivery O2 Flow Rate FiO2 12/21/16 08:20 120/70 12/21/16 05:40 81 117/77 12/21/16 04:00 97.1 81 18 117/77 99 Room Air 12/21/16 02:56 97.6 12/20/16 23:20 97.6 86 18 110/70 99 Room Air 12/20/16 21:52 89 115/77 12/20/16 20:00 97.7 89 18 115/77 100 Room Air 12/20/16 18:42 110/64 12/20/16 16:00 97.4 91 20 110/64 96 Room Air 12/20/16 14:00 87 98/60 12/20/16 13:14 103/61 12/20/16 12:00 96.4 88 17 103/61 99 Room Air 12/20/16 09:36 106/60 Laboratory Tests 12/21/16 05:30: White Blood Count 5.2, Red Blood Count 2.33L, Hemoglobin 9.1L, Hematocrit 28.5L , Mean Corpuscular Volume 122H, Mean Corpuscular Hemoglobin 39.1H, Mean Corpuscular Hemoglobin Concent 32.0, Red Cell Distribution Width 17.9H, Platelet Count 498H, Mean Platelet Volume 5.0L, Neutrophils (%) (Auto) , Lymphocytes (%) (Auto) , Monocytes (%) (Auto) , Eosinophils (%) (Auto) , Basophils (%) (Auto) , Neutrophils % (Manual) [Pending], Lymphocytes % (Manual) [Pending], Platelet Estimate [Pending], Platelet Morphology [Pending], Sodium Level 135, Potassium Level 3.0L, Chloride Level 98, Carbon Dioxide Level 28, Anion Gap 9, Blood Urea Nitrogen 7, Creatinine 0.5, Estimat Glomerular Filtration Rate > 60, Glucose Level 97, Calcium Level 8.3L, Total Bilirubin 1.2 , Direct Bilirubin 0.6H, Aspartate Amino Transf (AST/SGOT) 248H, Alanine Aminotransferase (ALT/SGPT) 256H, Alkaline Phosphatase 404H, Total Protein 6.1L , Albumin 2.5L, Globulin 3.6, Albumin/Globulin Ratio 0.6L, Immunoglobulin G [ Pending], Anti-Nuclear Antibody Screen [Pending], SmRNP Antibodies [Pending] Height (Feet): 5 Height (Inches): 6.00 Weight (Pounds): 217 Objective PHYSICAL EXAMINATION: GENERAL: Alert, awake, and oriented x3. HEENT: PERRLA. NECK: Range of motion is full in all directions. No tenderness. No adenopathy. LUNGS: Clear. HEART: Regular. ABDOMEN: Tenderness to palpation. BACK: Range of motion is decreased in flexion and extension with tenderness to paraspinal muscles and trapezial muscles. EXTREMITIES: Motor is intact. No cyanosis. No clubbing. NEURO: No focal deficit OMARI LUA Dec 21, 2016 08:33
[2016-12-21 08:34] LABS: BAND NEUTROPHILS % (MANUAL) 0 % (0-8); BASOPHILS % (MANUAL) 0 % (0-2); PLATELET ESTIMATE ADEQUATE; PLATELET MORPHOLOGY NORMAL
[2016-12-21 08:35] LABS: ANISOCYTOSIS 1+; MACROCYTES 2+; POIKILOCYTOSIS 1+; STOMATOCYTES 1+
--- NOTE | 2016-12-21 10:36 | GI Progress Note ---
Assessment/Plan Problems: (1) Alcoholic pancreatitis ICD Codes: K85.20 - Alcohol induced acute pancreatitis without necrosis or infection SNOMED: 850144086 (2) Fatty liver ICD Codes: K76.0 - Fatty (change of) liver, not elsewhere classified SNOMED: 306223550 (3) Acute alcohol intoxication ICD Codes: F10.129 - Alcohol abuse with intoxication, unspecified SNOMED: 95027497 (4) Abdominal pain ICD Codes: R10.9 - Unspecified abdominal pain SNOMED: 06319014 Status: stable Status Narrative Discussed with Dr. Jones. Assessment/Plan OB stool negative hepatitis panel >> negative tolerating diet discreminating factor calculated at 19 so no need for steroids elevated LFTs >> most likely shock liver fu LUPE ? needs psych eval pentoxifylline monitor H&H, transfuse prn H2B repeat LFTs, lipase pain mgmt fu labs Subjective Subjective abdominal pain wants pain medication Objective Last 24 Hour Vital Signs Date Time Temp Pulse Resp B/P (MAP) Pulse Ox O2 Delivery O2 Flow Rate FiO2 12/21/16 08:20 120/70 12/21/16 08:00 97.5 79 18 103/71 97 Room Air 12/21/16 05:40 81 117/77 12/21/16 04:00 97.1 81 18 117/77 99 Room Air 12/21/16 02:56 97.6 12/20/16 23:20 97.6 86 18 110/70 99 Room Air 12/20/16 21:52 89 115/77 12/20/16 20:00 97.7 89 18 115/77 100 Room Air 12/20/16 18:42 110/64 12/20/16 16:00 97.4 91 20 110/64 96 Room Air 12/20/16 14:00 87 98/60 12/20/16 13:14 103/61 12/20/16 12:00 96.4 88 17 103/61 99 Room Air Laboratory Tests Test 12/21/16 05:30 White Blood Count 5.2 K/UL (4.8-10.8) Red Blood Count 2.33 M/UL (4.20-5.40) L Hemoglobin 9.1 G/DL (12.0-16.0) L Hematocrit 28.5 % (37.0-47.0) L Mean Corpuscular Volume 122 FL (80-99) H Mean Corpuscular Hemoglobin 39.1 PG (27.0-31.0) H Mean Corpuscular Hemoglobin Concent 32.0 G/DL (32.0-36.0) Red Cell Distribution Width 17.9 % (11.6-14.8) H Platelet Count 498 K/UL (150-450) H Mean Platelet Volume 5.0 FL (6.5-10.1) L Neutrophils (%) (Auto) % (45.0-75.0) Lymphocytes (%) (Auto) % (20.0-45.0) Monocytes (%) (Auto) % (1.0-10.0) Eosinophils (%) (Auto) % (0.0-3.0) Basophils (%) (Auto) % (0.0-2.0) Differential Total Cells Counted 100 Neutrophils % (Manual) 41 % (45-75) L Lymphocytes % (Manual) 47 % (20-45) H Monocytes % (Manual) 10 % (1-10) Eosinophils % (Manual) 2 % (0-3) Basophils % (Manual) 0 % (0-2) Band Neutrophils 0 % (0-8) Platelet Estimate Adequate Platelet Morphology Normal Poikilocytosis 1+ Anisocytosis 1+ Macrocytosis 2+ Stomatocytes 1+ Sodium Level 135 mEQ/L (135-145) Potassium Level 3.0 mEQ/L (3.4-4.9) L Chloride Level 98 mEQ/L (98-107) Carbon Dioxide Level 28 mEQ/L (20-30) Anion Gap 9 (5-15) Blood Urea Nitrogen 7 mg/dL (7-23) Creatinine 0.5 mg/dL (0.5-0.9) Estimat Glomerular Filtration Rate > 60 mL/min (>60) Glucose Level 97 mg/dL (74-106) Calcium Level 8.3 mg/dL (8.6-10.2) L Total Bilirubin 1.2 mg/dL (0.0-1.2) Direct Bilirubin 0.6 mg/dL (0.1-0.3) H Aspartate Amino Transf (AST/SGOT) 248 U/L (5-40) H Alanine Aminotransferase (ALT/SGPT) 256 U/L (3-33) H Alkaline Phosphatase 404 U/L (35-104) H Total Protein 6.1 g/dL (6.6-8.7) L Albumin 2.5 g/dL (3.5-5.2) L Globulin 3.6 g/dL Albumin/Globulin Ratio 0.6 (1.0-2.7) L Immunoglobulin G Pending Anti-Nuclear Antibody Screen Pending SmRNP Antibodies Pending Height (Feet): 5 Height (Inches): 6.00 Weight (Pounds): 217 General Appearance: no apparent distress, alert Cardiovascular: normal rate Respiratory/Chest: normal breath sounds, no respiratory distress Abdominal Exam: normal bowel sounds, non tender, soft Nayeli Box N.P. Dec 21, 2016 10:36
--- NOTE | 2016-12-21 11:58 | GI Progress Note ---
Assessment/Plan Problems: (1) Alcoholic pancreatitis ICD Codes: K85.20 - Alcohol induced acute pancreatitis without necrosis or infection SNOMED: 252508731 (2) Fatty liver ICD Codes: K76.0 - Fatty (change of) liver, not elsewhere classified SNOMED: 418888394 (3) Acute alcohol intoxication ICD Codes: F10.129 - Alcohol abuse with intoxication, unspecified SNOMED: 27098793 (4) Abdominal pain ICD Codes: R10.9 - Unspecified abdominal pain SNOMED: 20630413 Status: progressing, unchanged Status Narrative Discussed with Dr. Jones. Assessment/Plan OB stool negative hepatitis panel >> negative tolerating diet discriminating factor calculated at 19 so no need for steroids elevated LFTs >> most likely shock liver fu LUPE ? needs psych eval pentoxifylline monitor H&H, transfuse prn H2B repeat LFTs, lipase pain mgmt fu labs Subjective Subjective abdominal pain wants pain medication Objective Last 24 Hour Vital Signs Date Time Temp Pulse Resp B/P (MAP) Pulse Ox O2 Delivery O2 Flow Rate FiO2 12/21/16 08:20 120/70 12/21/16 08:00 97.5 79 18 103/71 97 Room Air 12/21/16 05:40 81 117/77 12/21/16 04:00 97.1 81 18 117/77 99 Room Air 12/21/16 02:56 97.6 12/20/16 23:20 97.6 86 18 110/70 99 Room Air 12/20/16 21:52 89 115/77 12/20/16 20:00 97.7 89 18 115/77 100 Room Air 12/20/16 18:42 110/64 12/20/16 16:00 97.4 91 20 110/64 96 Room Air 12/20/16 14:00 87 98/60 12/20/16 13:14 103/61 12/20/16 12:00 96.4 88 17 103/61 99 Room Air Laboratory Tests Test 12/21/16 05:30 White Blood Count 5.2 K/UL (4.8-10.8) Red Blood Count 2.33 M/UL (4.20-5.40) L Hemoglobin 9.1 G/DL (12.0-16.0) L Hematocrit 28.5 % (37.0-47.0) L Mean Corpuscular Volume 122 FL (80-99) H Mean Corpuscular Hemoglobin 39.1 PG (27.0-31.0) H Mean Corpuscular Hemoglobin Concent 32.0 G/DL (32.0-36.0) Red Cell Distribution Width 17.9 % (11.6-14.8) H Platelet Count 498 K/UL (150-450) H Mean Platelet Volume 5.0 FL (6.5-10.1) L Neutrophils (%) (Auto) % (45.0-75.0) Lymphocytes (%) (Auto) % (20.0-45.0) Monocytes (%) (Auto) % (1.0-10.0) Eosinophils (%) (Auto) % (0.0-3.0) Basophils (%) (Auto) % (0.0-2.0) Differential Total Cells Counted 100 Neutrophils % (Manual) 41 % (45-75) L Lymphocytes % (Manual) 47 % (20-45) H Monocytes % (Manual) 10 % (1-10) Eosinophils % (Manual) 2 % (0-3) Basophils % (Manual) 0 % (0-2) Band Neutrophils 0 % (0-8) Platelet Estimate Adequate Platelet Morphology Normal Poikilocytosis 1+ Anisocytosis 1+ Macrocytosis 2+ Stomatocytes 1+ Sodium Level 135 mEQ/L (135-145) Potassium Level 3.0 mEQ/L (3.4-4.9) L Chloride Level 98 mEQ/L (98-107) Carbon Dioxide Level 28 mEQ/L (20-30) Anion Gap 9 (5-15) Blood Urea Nitrogen 7 mg/dL (7-23) Creatinine 0.5 mg/dL (0.5-0.9) Estimat Glomerular Filtration Rate > 60 mL/min (>60) Glucose Level 97 mg/dL (74-106) Calcium Level 8.3 mg/dL (8.6-10.2) L Total Bilirubin 1.2 mg/dL (0.0-1.2) Direct Bilirubin 0.6 mg/dL (0.1-0.3) H Aspartate Amino Transf (AST/SGOT) 248 U/L (5-40) H Alanine Aminotransferase (ALT/SGPT) 256 U/L (3-33) H Alkaline Phosphatase 404 U/L (35-104) H Total Protein 6.1 g/dL (6.6-8.7) L Albumin 2.5 g/dL (3.5-5.2) L Globulin 3.6 g/dL Albumin/Globulin Ratio 0.6 (1.0-2.7) L Immunoglobulin G Pending Anti-Nuclear Antibody Screen Pending SmRNP Antibodies Pending Height (Feet): 5 Height (Inches): 6.00 Weight (Pounds): 217 General Appearance: no apparent distress, alert, obese Cardiovascular: normal rate Respiratory/Chest: normal breath sounds, no respiratory distress Abdominal Exam: normal bowel sounds, non tender, soft Nayeli Box N.P. Dec 21, 2016 11:58
[2016-12-21 12:00] VITALS: BP 119/60
[2016-12-21] MEDS ORDERED: FLUOXETINE HCL20 MG ORAL (13:44)
[2016-12-21] MEDS ORDERED: INDERAL10 MG ORAL (13:44)
[2016-12-21] MEDS ORDERED: DIAZEPAM5 MG ORAL (13:44)
[2016-12-21] MEDS ORDERED: RANITIDINE HCL150 MG ORAL (13:44)
[2016-12-21] MEDS ORDERED: NORCO 5-325 TA1 EACH ORAL (13:44)
--- NOTE | 2016-12-21 13:46 | Pulmonology Progress Note ---
Assessment/Plan Problems: (1) Metabolic acidosis (2) Hyponatremia (3) Alcoholic pancreatitis (4) Cellulitis (5) Hydradenitis (6) Anxiety Assessment/Plan improving symptomatic treatment abx for cellulitis of skin folds dvt porphylaxis hyponatremia w/u pt agreed to go to long term Subjective ROS Limited/Unobtainable: No Constitutional: Reports: no symptoms HEENT: Repors: no symptoms Respiratory: Reports: no symptoms Cardiovascular: Reports: no symptoms Allergies: Coded Allergies: IBUPROFEN (Verified Allergy, Severe, Anaphylaxis, 06/12/16) swollen face and lips NSAIDS (NON-STEROIDAL ANTI-INFLAMMA (Verified Allergy, Severe, Anaphylaxis , 06/12/16) swollen face and lips Uncoded Allergies: NSAIDS include Ibuprofen (Adverse Reaction, Severe, Anaphylaxis, 06/11/16) Swollen face and lip Objective Last 24 Hour Vital Signs Date Time Temp Pulse Resp B/P (MAP) Pulse Ox O2 Delivery O2 Flow Rate FiO2 12/21/16 13:00 99/65 12/21/16 12:00 97.5 79 18 119/60 99 Room Air 12/21/16 08:20 120/70 12/21/16 08:00 97.5 79 18 103/71 97 Room Air 12/21/16 05:40 81 117/77 12/21/16 04:00 97.1 81 18 117/77 99 Room Air 12/21/16 02:56 97.6 12/20/16 23:20 97.6 86 18 110/70 99 Room Air 12/20/16 21:52 89 115/77 12/20/16 20:00 97.7 89 18 115/77 100 Room Air 12/20/16 18:42 110/64 12/20/16 16:00 97.4 91 20 110/64 96 Room Air 12/20/16 14:00 87 98/60 General Appearance: WD/WN HEENT: normocephalic, atraumatic Respiratory/Chest: chest wall non-tender, lungs clear, normal breath sounds Cardiovascular: normal peripheral pulses, normal rate Abdomen: normal bowel sounds, soft, non tender, no organomegaly, no mass Genitourinary: normal external genitalia Extremities: no clubbing Skin: no rash Neurologic/Psychiatric: ore buyer II-XII grossly normal Lymphatic: no neck adenopathy Laboratory Tests 12/21/16 05:30: White Blood Count 5.2, Red Blood Count 2.33L, Hemoglobin 9.1L, Hematocrit 28.5L , Mean Corpuscular Volume 122H, Mean Corpuscular Hemoglobin 39.1H, Mean Corpuscular Hemoglobin Concent 32.0, Red Cell Distribution Width 17.9H, Platelet Count 498H, Mean Platelet Volume 5.0L, Neutrophils (%) (Auto) , Lymphocytes (%) (Auto) , Monocytes (%) (Auto) , Eosinophils (%) (Auto) , Basophils (%) (Auto) , Differential Total Cells Counted 100, Neutrophils % ( Manual) 41L, Lymphocytes % (Manual) 47H, Monocytes % (Manual) 10, Eosinophils % (Manual) 2, Basophils % (Manual) 0, Band Neutrophils 0, Platelet Estimate Adequate, Platelet Morphology Normal, Poikilocytosis 1+, Anisocytosis 1+, Macrocytosis 2+, Stomatocytes 1+, Sodium Level 135, Potassium Level 3.0L, Chloride Level 98, Carbon Dioxide Level 28, Anion Gap 9, Blood Urea Nitrogen 7, Creatinine 0.5, Estimat Glomerular Filtration Rate > 60, Glucose Level 97, Calcium Level 8.3L, Total Bilirubin 1.2, Direct Bilirubin 0.6H, Aspartate Amino Transf (AST/SGOT) 248H, Alanine Aminotransferase (ALT/SGPT) 256H, Alkaline Phosphatase 404H, Total Protein 6.1L, Albumin 2.5L, Globulin 3.6, Albumin/ Globulin Ratio 0.6L, Immunoglobulin G [Pending], Anti-Nuclear Antibody Screen [ Pending], SmRNP Antibodies [Pending] Current Medications Medications (Trade) Dose Ordered Sig/Payam Route PRN Reason Start Time Stop Time Status Last Admin Dose Admin Acetaminophen (Tylenol) 650 mg Q4H PRN ORAL fever 12/16/16 17:30 01/15/17 17:29 Acetaminophen/ Hydrocodone Bitart ([place] 5/325) 1 tab Q6H PRN ORAL For pain 4~6 /10 12/20/16 03:15 12/27/16 03:14 12/20/16 20:19 Al Hydroxide/Mg Hydroxide (Mylanta II) 30 ml Q6H PRN ORAL dyspepsia 12/16/16 17:30 01/15/17 17:29 12/17/16 10:49 Cephalexin (Keflex) 500 mg FOUR TIMES A DAY ORAL 12/19/16 20:00 12/26/16 19:59 12/21/16 13:19 Chlordiazepoxide (Librium) 25 mg Q6H PRN ORAL Agitation 12/16/16 17:30 12/23/16 17:29 Dextrose (Dextrose 50%) STAT PRN IV Hypoglycemia 12/16/16 17:30 01/15/17 17:29 Diazepam (Valium) 10 mg Q4H PRN ORAL anxiety agitation 12/18/16 18:00 12/25/16 17:59 12/21/16 11:30 Diphenhydramine HCl (Benadryl) 25 mg Q6H PRN ORAL Itching 12/18/16 17:00 01/17/17 16:59 12/21/16 00:04 Doxycycline Monohydrate (Vibramycin) 100 mg EVERY 12 HOURS ORAL 12/19/16 20:00 12/26/16 19:59 12/21/16 08:18 Fluconazole (Diflucan) 200 mg DAILY ORAL 12/17/16 16:00 12/24/16 15:59 12/21/16 08:18 Fluoxetine HCl (PROzac) 20 mg DAILY ORAL 12/19/16 09:00 01/18/17 08:59 12/21/16 08:18 Folic Acid (Folate) 1 mg DAILY ORAL 12/19/16 09:00 01/18/17 08:59 12/21/16 08:18 Heparin Sodium (Porcine) (Heparin 5000 units/ml) 5,000 units EVERY 12 HOURS SUBQ 12/16/16 21:00 01/15/17 20:59 12/21/16 08:15 Lorazepam (Ativan 2mg/ml 1ml) 2 mg Q1H PRN IV seizures 12/16/16 18:00 12/23/16 17:59 Morphine Sulfate (Morphine Sulfate) 4 mg Q4H PRN SUBQ Severe Pain (Pain Scale 7-10) 12/20/16 10:30 12/27/16 10:29 12/21/16 08:20 Ondansetron HCl (Zofran ODT) 8 mg Q6H PRN ORAL Nausea & Vomiting 12/20/16 17:00 01/19/17 16:59 Pentoxifylline (TRENtal) 400 mg THREE TIMES A DAY ORAL 12/18/16 09:00 01/17/17 08:59 12/21/16 08:20 Polyethylene Glycol (Miralax) 17 gm HSPRN PRN ORAL Constipation 12/16/16 17:30 01/15/17 17:29 Potassium Chloride (K-Dur) 40 meq DAILY ORAL 12/21/16 09:00 01/20/17 08:59 12/21/16 08:18 Propranolol HCl (Inderal) 20 mg Q8HR ORAL 12/18/16 06:00 01/17/17 05:59 12/21/16 05:40 Ranitidine HCl (Zantac) 150 mg BEDTIME ORAL 12/18/16 21:00 01/17/17 20:59 12/20/16 20:18 Thiamine HCl (Vitamin B1) 100 mg DAILY ORAL 12/19/16 09:00 01/18/17 08:59 12/21/16 08:19 Zolpidem Tartrate (Ambien) 5 mg HSPRN PRN ORAL Insomnia 12/16/16 17:30 01/15/17 17:29 DAVID CLARKE Dec 21, 2016 13:46
[2016-12-21 14:09] VITALS: BP 115/74
--- NOTE | 2016-12-21 15:04 | General Progress Note ---
Assessment/Plan Problem List: (1) Acute alcohol intoxication ICD Codes: F10.129 - Alcohol abuse with intoxication, unspecified SNOMED: 49720972 (2) Severe anemia ICD Codes: D64.9 - Anemia, unspecified SNOMED: 956866980 (3) Weak ICD Codes: R53.1 - Weakness SNOMED: 22022888 (4) Abdominal pain ICD Codes: R10.9 - Unspecified abdominal pain SNOMED: 37376339 (5) Hydradenitis ICD Codes: L73.2 - Hidradenitis suppurativa SNOMED: 60252705 (6) Sepsis ICD Codes: A41.9 - Sepsis, unspecified organism SNOMED: 60207836 (7) UTI (urinary tract infection) ICD Codes: N39.0 - Urinary tract infection, site not specified SNOMED: 88226827 (8) Acute pancreatitis ICD Codes: K85.90 - Acute pancreatitis without necrosis or infection, unspecified SNOMED: 544132610 (9) Generalized weakness ICD Codes: R53.1 - Weakness SNOMED: 07478906 Status: stable Assessment/Plan ot pt diet detox pain control abx dc to snf Subjective Constitutional: Reports: weakness Allergies: Coded Allergies: IBUPROFEN (Verified Allergy, Severe, Anaphylaxis, 06/12/16) swollen face and lips NSAIDS (NON-STEROIDAL ANTI-INFLAMMA (Verified Allergy, Severe, Anaphylaxis , 06/12/16) swollen face and lips Uncoded Allergies: NSAIDS include Ibuprofen (Adverse Reaction, Severe, Anaphylaxis, 06/11/16) Swollen face and lip All Systems: reviewed and negative except above Subjective sl nausea Objective Last 24 Hour Vital Signs Date Time Temp Pulse Resp B/P (MAP) Pulse Ox O2 Delivery O2 Flow Rate FiO2 12/21/16 14:09 81 115/74 12/21/16 13:00 99/65 12/21/16 12:00 97.5 79 18 119/60 99 Room Air 12/21/16 08:20 120/70 12/21/16 08:00 97.5 79 18 103/71 97 Room Air 12/21/16 05:40 81 117/77 12/21/16 04:00 97.1 81 18 117/77 99 Room Air 12/21/16 02:56 97.6 12/20/16 23:20 97.6 86 18 110/70 99 Room Air 12/20/16 21:52 89 115/77 12/20/16 20:00 97.7 89 18 115/77 100 Room Air 12/20/16 18:42 110/64 12/20/16 16:00 97.4 91 20 110/64 96 Room Air Laboratory Tests 12/21/16 05:30: White Blood Count 5.2, Red Blood Count 2.33L, Hemoglobin 9.1L, Hematocrit 28.5L , Mean Corpuscular Volume 122H, Mean Corpuscular Hemoglobin 39.1H, Mean Corpuscular Hemoglobin Concent 32.0, Red Cell Distribution Width 17.9H, Platelet Count 498H, Mean Platelet Volume 5.0L, Neutrophils (%) (Auto) , Lymphocytes (%) (Auto) , Monocytes (%) (Auto) , Eosinophils (%) (Auto) , Basophils (%) (Auto) , Differential Total Cells Counted 100, Neutrophils % ( Manual) 41L, Lymphocytes % (Manual) 47H, Monocytes % (Manual) 10, Eosinophils % (Manual) 2, Basophils % (Manual) 0, Band Neutrophils 0, Platelet Estimate Adequate, Platelet Morphology Normal, Poikilocytosis 1+, Anisocytosis 1+, Macrocytosis 2+, Stomatocytes 1+, Sodium Level 135, Potassium Level 3.0L, Chloride Level 98, Carbon Dioxide Level 28, Anion Gap 9, Blood Urea Nitrogen 7, Creatinine 0.5, Estimat Glomerular Filtration Rate > 60, Glucose Level 97, Calcium Level 8.3L, Total Bilirubin 1.2, Direct Bilirubin 0.6H, Aspartate Amino Transf (AST/SGOT) 248H, Alanine Aminotransferase (ALT/SGPT) 256H, Alkaline Phosphatase 404H, Total Protein 6.1L, Albumin 2.5L, Globulin 3.6, Albumin/ Globulin Ratio 0.6L, Immunoglobulin G [Pending], Anti-Nuclear Antibody Screen [ Pending], SmRNP Antibodies [Pending] Height (Feet): 5 Height (Inches): 6.00 Weight (Pounds): 217 General Appearance: lethargic EENT: normal ENT inspection Neck: normal alignment Cardiovascular: normal peripheral pulses, normal rate, regular rhythm Respiratory/Chest: chest wall non-tender, lungs clear, normal breath sounds Abdomen: normal bowel sounds, non tender, soft Extremities: normal inspection Edema: no edema noted Arm (L), no edema noted Arm (R), no edema noted Leg (L), no edema noted Leg (R), no edema noted Pedal (L), no edema noted Pedal (R), no edema noted Generalized Neurologic: responsive, motor weakness Skin: normal pigmentation, warm/dry PIETER GAUTHIER Dec 21, 2016 15:04
[2016-12-21] MEDS ORDERED: FLUCONAZOLE100 MG ORAL ×2 (15:22→15:26)
[2016-12-21] MEDS ORDERED: VIBRAMYCIN100 MG ORAL ×2 (15:22→15:25)
[2016-12-21] MEDS ORDERED: CEPHALEXIN500 MG ORAL (15:23)
--- NOTE | 2016-12-21 15:32 | Infectious Diseases Prog Note ---
Assessment/Plan Problems: (1) UTI (urinary tract infection) Assessment & Plan: culture grew yeast and Klebsiella pneumonia , on keflex and fluconazol for two weeks total . EOT 12/29/16 (2) Sepsis Assessment & Plan: blood culture is negative . continue cefepime with clindamycin for two weeks (3) Acute pancreatitis Assessment & Plan: due to alcohol abuse, continue hydration, and pain management, monitor lipase, advance diet as tolerated (4) Hidradenitis suppurativa Assessment & Plan: on keflex and doxycycline to finish total of two weeks , continue local wound care , follow up with general surgery for possible surgical intervention . EOT 12/29/16 Subjective Constitutional: Reports: no symptoms HEENT: Reports: no symptoms Respiratory: Reports: no symptoms Breasts: Reports: no symptoms Cardiovascular: Reports: no symptoms Gastrointestinal/Abdominal: Reports: no symptoms Genitourinary: Reports: no symptoms Neurologic: Reports: no symptoms Psychiatric: Reports: depression Skin: Reports: ulcer Endocrine: Reports: no symptoms Hematologic: Reports: no symptoms Musculoskeletal: Reports: no symptoms Allergies: Coded Allergies: IBUPROFEN (Verified Allergy, Severe, Anaphylaxis, 06/12/16) swollen face and lips NSAIDS (NON-STEROIDAL ANTI-INFLAMMA (Verified Allergy, Severe, Anaphylaxis , 06/12/16) swollen face and lips Uncoded Allergies: NSAIDS include Ibuprofen (Adverse Reaction, Severe, Anaphylaxis, 06/11/16) Swollen face and lip Objective Vital Signs Last 24 Hour Vital Signs Date Time Temp Pulse Resp B/P (MAP) Pulse Ox O2 Delivery O2 Flow Rate FiO2 12/21/16 14:09 81 115/74 12/21/16 13:00 99/65 12/21/16 12:00 97.5 79 18 119/60 99 Room Air 12/21/16 08:20 120/70 12/21/16 08:00 97.5 79 18 103/71 97 Room Air 12/21/16 05:40 81 117/77 12/21/16 04:00 97.1 81 18 117/77 99 Room Air 12/21/16 02:56 97.6 12/20/16 23:20 97.6 86 18 110/70 99 Room Air 12/20/16 21:52 89 115/77 12/20/16 20:00 97.7 89 18 115/77 100 Room Air 12/20/16 18:42 110/64 12/20/16 16:00 97.4 91 20 110/64 96 Room Air Height (Feet): 5 Height (Inches): 6.00 Weight (Pounds): 217 General Appearance: WD/WN, no acute distress HEENT: normocephalic, atraumatic, anicteric, mucous membranes moist, PERRL Respiratory/Chest: chest wall non-tender, lungs clear, normal breath sounds, no respiratory distress, no accessory muscle use Cardiovascular: normal peripheral pulses, normal rate, regular rhythm, no gallop/murmur, no JVD Abdomen: normal bowel sounds, soft, non tender, no organomegaly, non distended , no mass Extremities: no cyanosis, no clubbing Skin: no rash, no lesions, ulcers Neurologic/Psychiatric: alert, responsive Laboratory Tests Test 12/21/16 05:30 White Blood Count 5.2 K/UL (4.8-10.8) Red Blood Count 2.33 M/UL (4.20-5.40) L Hemoglobin 9.1 G/DL (12.0-16.0) L Hematocrit 28.5 % (37.0-47.0) L Mean Corpuscular Volume 122 FL (80-99) H Mean Corpuscular Hemoglobin 39.1 PG (27.0-31.0) H Mean Corpuscular Hemoglobin Concent 32.0 G/DL (32.0-36.0) Red Cell Distribution Width 17.9 % (11.6-14.8) H Platelet Count 498 K/UL (150-450) H Mean Platelet Volume 5.0 FL (6.5-10.1) L Neutrophils (%) (Auto) % (45.0-75.0) Lymphocytes (%) (Auto) % (20.0-45.0) Monocytes (%) (Auto) % (1.0-10.0) Eosinophils (%) (Auto) % (0.0-3.0) Basophils (%) (Auto) % (0.0-2.0) Differential Total Cells Counted 100 Neutrophils % (Manual) 41 % (45-75) L Lymphocytes % (Manual) 47 % (20-45) H Monocytes % (Manual) 10 % (1-10) Eosinophils % (Manual) 2 % (0-3) Basophils % (Manual) 0 % (0-2) Band Neutrophils 0 % (0-8) Platelet Estimate Adequate Platelet Morphology Normal Poikilocytosis 1+ Anisocytosis 1+ Macrocytosis 2+ Stomatocytes 1+ Sodium Level 135 mEQ/L (135-145) Potassium Level 3.0 mEQ/L (3.4-4.9) L Chloride Level 98 mEQ/L (98-107) Carbon Dioxide Level 28 mEQ/L (20-30) Anion Gap 9 (5-15) Blood Urea Nitrogen 7 mg/dL (7-23) Creatinine 0.5 mg/dL (0.5-0.9) Estimat Glomerular Filtration Rate > 60 mL/min (>60) Glucose Level 97 mg/dL (74-106) Calcium Level 8.3 mg/dL (8.6-10.2) L Total Bilirubin 1.2 mg/dL (0.0-1.2) Direct Bilirubin 0.6 mg/dL (0.1-0.3) H Aspartate Amino Transf (AST/SGOT) 248 U/L (5-40) H Alanine Aminotransferase (ALT/SGPT) 256 U/L (3-33) H Alkaline Phosphatase 404 U/L (35-104) H Total Protein 6.1 g/dL (6.6-8.7) L Albumin 2.5 g/dL (3.5-5.2) L Globulin 3.6 g/dL Albumin/Globulin Ratio 0.6 (1.0-2.7) L Immunoglobulin G Pending Anti-Nuclear Antibody Screen Pending SmRNP Antibodies Pending Current Medications Medications (Trade) Dose Ordered Sig/Payam Route PRN Reason Start Time Stop Time Status Last Admin Dose Admin Acetaminophen (Tylenol) 650 mg Q4H PRN ORAL fever 12/16/16 17:30 01/15/17 17:29 Acetaminophen/ Hydrocodone Bitart ([place] 5/325) 1 tab Q6H PRN ORAL For pain 4~6 10 12/20/16 03:15 12/27/16 03:14 12/20/16 20:19 Al Hydroxide/Mg Hydroxide (Mylanta II) 30 ml Q6H PRN ORAL dyspepsia 12/16/16 17:30 01/15/17 17:29 12/17/16 10:49 Cephalexin (Keflex) 500 mg FOUR TIMES A DAY ORAL 12/19/16 20:00 12/26/16 19:59 12/21/16 13:19 Chlordiazepoxide (Librium) 25 mg Q6H PRN ORAL Agitation 12/16/16 17:30 12/23/16 17:29 Dextrose (Dextrose 50%) STAT PRN IV Hypoglycemia 12/16/16 17:30 01/15/17 17:29 Diazepam (Valium) 10 mg Q4H PRN ORAL anxiety agitation 12/18/16 18:00 12/25/16 17:59 12/21/16 11:30 Diphenhydramine HCl (Benadryl) 25 mg Q6H PRN ORAL Itching 12/18/16 17:00 01/17/17 16:59 12/21/16 00:04 Doxycycline Monohydrate (Vibramycin) 100 mg EVERY 12 HOURS ORAL 12/19/16 20:00 12/26/16 19:59 12/21/16 08:18 Fluconazole (Diflucan) 200 mg DAILY ORAL 12/17/16 16:00 12/24/16 15:59 12/21/16 08:18 Fluoxetine HCl (PROzac) 20 mg DAILY ORAL 12/19/16 09:00 01/18/17 08:59 12/21/16 08:18 Folic Acid (Folate) 1 mg DAILY ORAL 12/19/16 09:00 01/18/17 08:59 12/21/16 08:18 Heparin Sodium (Porcine) (Heparin 5000 units/ml) 5,000 units EVERY 12 HOURS SUBQ 12/16/16 21:00 01/15/17 20:59 12/21/16 08:15 Lorazepam (Ativan 2mg/ml 1ml) 2 mg Q1H PRN IV seizures 12/16/16 18:00 12/23/16 17:59 Morphine Sulfate (Morphine Sulfate) 4 mg Q4H PRN SUBQ Severe Pain (Pain Scale 7-10) 12/20/16 10:30 12/27/16 10:29 12/21/16 14:09 Ondansetron HCl (Zofran ODT) 8 mg Q6H PRN ORAL Nausea & Vomiting 12/20/16 17:00 01/19/17 16:59 Pentoxifylline (TRENtal) 400 mg THREE TIMES A DAY ORAL 12/18/16 09:00 01/17/17 08:59 12/21/16 08:20 Polyethylene Glycol (Miralax) 17 gm HSPRN PRN ORAL Constipation 12/16/16 17:30 01/15/17 17:29 Potassium Chloride (K-Dur) 40 meq DAILY ORAL 12/21/16 09:00 01/20/17 08:59 12/21/16 08:18 Propranolol HCl (Inderal) 20 mg Q8HR ORAL 12/18/16 06:00 01/17/17 05:59 12/21/16 14:09 Ranitidine HCl (Zantac) 150 mg BEDTIME ORAL 12/18/16 21:00 01/17/17 20:59 12/20/16 20:18 Thiamine HCl (Vitamin B1) 100 mg DAILY ORAL 12/19/16 09:00 01/18/17 08:59 12/21/16 08:19 Zolpidem Tartrate (Ambien) 5 mg HSPRN PRN ORAL Insomnia 12/16/16 17:30 01/15/17 17:29 Brandan Rubin M.D. Dec 21, 2016 15:32
--- NOTE | 2016-12-21 18:11 | Nephrology Progress Note ---
Assessment/Plan Assessment 1. Hypovolemic hyponatremia resolved 2. Severe acidosis, which at this point is improving. 3. Acute renal failure. 4. Acute tubular necrosis. 5. hypokalemia . 6. Hypocalcemia. . Severe adenitis under the arm and abdominal wall . Plan plan to continue NS.9 monitoring electrolyte avoid NSAID iv antibiotic replace k Subjective Constitutional: Reports: no symptoms HEENT: Reports: no symptoms Genitourinary: Reports: no symptoms Neurologic/Psychiatric: Reports: no symptoms Subjective alert and awake feeling better patient was seen at 8 am today Objective Objective Last 24 Hour Vital Signs Date Time Temp Pulse Resp B/P (MAP) Pulse Ox O2 Delivery O2 Flow Rate FiO2 12/21/16 14:09 81 115/74 12/21/16 13:00 99/65 12/21/16 12:00 97.5 79 18 119/60 99 Room Air 12/21/16 08:20 120/70 12/21/16 08:00 97.5 79 18 103/71 97 Room Air 12/21/16 05:40 81 117/77 12/21/16 04:00 97.1 81 18 117/77 99 Room Air 12/21/16 02:56 97.6 12/20/16 23:20 97.6 86 18 110/70 99 Room Air 12/20/16 21:52 89 115/77 12/20/16 20:00 97.7 89 18 115/77 100 Room Air 12/20/16 18:42 110/64 Laboratory Tests 12/21/16 05:30: White Blood Count 5.2, Red Blood Count 2.33L, Hemoglobin 9.1L, Hematocrit 28.5L , Mean Corpuscular Volume 122H, Mean Corpuscular Hemoglobin 39.1H, Mean Corpuscular Hemoglobin Concent 32.0, Red Cell Distribution Width 17.9H, Platelet Count 498H, Mean Platelet Volume 5.0L, Neutrophils (%) (Auto) , Lymphocytes (%) (Auto) , Monocytes (%) (Auto) , Eosinophils (%) (Auto) , Basophils (%) (Auto) , Differential Total Cells Counted 100, Neutrophils % ( Manual) 41L, Lymphocytes % (Manual) 47H, Monocytes % (Manual) 10, Eosinophils % (Manual) 2, Basophils % (Manual) 0, Band Neutrophils 0, Platelet Estimate Adequate, Platelet Morphology Normal, Poikilocytosis 1+, Anisocytosis 1+, Macrocytosis 2+, Stomatocytes 1+, Sodium Level 135, Potassium Level 3.0L, Chloride Level 98, Carbon Dioxide Level 28, Anion Gap 9, Blood Urea Nitrogen 7, Creatinine 0.5, Estimat Glomerular Filtration Rate > 60, Glucose Level 97, Calcium Level 8.3L, Total Bilirubin 1.2, Direct Bilirubin 0.6H, Aspartate Amino Transf (AST/SGOT) 248H, Alanine Aminotransferase (ALT/SGPT) 256H, Alkaline Phosphatase 404H, Total Protein 6.1L, Albumin 2.5L, Globulin 3.6, Albumin/ Globulin Ratio 0.6L, Immunoglobulin G [Pending], Anti-Nuclear Antibody Screen [ Pending], SmRNP Antibodies [Pending] Height (Feet): 5 Height (Inches): 6.00 Weight (Pounds): 217 Objective HEAD AND NECK: No JVP. No LAD. No thyromegaly. Extraocular movements intact. Pupils are reactive to light and accommodation. LUNGS: Decreased breathing sounds on both sides. CARDIAC: Regular rate and rhythm. S1 and S2. No murmur. No rub. ABDOMEN: Hidradenitis on right axilla and abdominal wall drainage and EXTREMITIES: No edema. No clubbing. No cyanosis. NEUROLOGIC: Cranial nerves II to XII within normal limits. Extraocular movements are intact. HERMINIO SAHA Dec 21, 2016 18:11
--- NOTE | 2016-12-21 22:59 | General Progress Note ---
Assessment/Plan Status: stable, progressing Assessment/Plan cont current treatment Subjective Constitutional: Reports: malaise, weakness Neurologic/Psychiatric: Reports: anxiety, depressed, emotional problems Allergies: Coded Allergies: IBUPROFEN (Verified Allergy, Severe, Anaphylaxis, 06/12/16) swollen face and lips NSAIDS (NON-STEROIDAL ANTI-INFLAMMA (Verified Allergy, Severe, Anaphylaxis , 06/12/16) swollen face and lips Uncoded Allergies: NSAIDS include Ibuprofen (Adverse Reaction, Severe, Anaphylaxis, 06/11/16) Swollen face and lip Objective Last 24 Hour Vital Signs Date Time Temp Pulse Resp B/P (MAP) Pulse Ox O2 Delivery O2 Flow Rate FiO2 12/21/16 14:09 81 115/74 12/21/16 13:00 99/65 12/21/16 12:00 97.5 79 18 119/60 99 Room Air 12/21/16 08:20 120/70 12/21/16 08:00 97.5 79 18 103/71 97 Room Air 12/21/16 05:40 81 117/77 12/21/16 04:00 97.1 81 18 117/77 99 Room Air 12/21/16 02:56 97.6 12/20/16 23:20 97.6 86 18 110/70 99 Room Air Laboratory Tests 12/21/16 05:30: White Blood Count 5.2, Red Blood Count 2.33L, Hemoglobin 9.1L, Hematocrit 28.5L , Mean Corpuscular Volume 122H, Mean Corpuscular Hemoglobin 39.1H, Mean Corpuscular Hemoglobin Concent 32.0, Red Cell Distribution Width 17.9H, Platelet Count 498H, Mean Platelet Volume 5.0L, Neutrophils (%) (Auto) , Lymphocytes (%) (Auto) , Monocytes (%) (Auto) , Eosinophils (%) (Auto) , Basophils (%) (Auto) , Differential Total Cells Counted 100, Neutrophils % ( Manual) 41L, Lymphocytes % (Manual) 47H, Monocytes % (Manual) 10, Eosinophils % (Manual) 2, Basophils % (Manual) 0, Band Neutrophils 0, Platelet Estimate Adequate, Platelet Morphology Normal, Poikilocytosis 1+, Anisocytosis 1+, Macrocytosis 2+, Stomatocytes 1+, Sodium Level 135, Potassium Level 3.0L, Chloride Level 98, Carbon Dioxide Level 28, Anion Gap 9, Blood Urea Nitrogen 7, Creatinine 0.5, Estimat Glomerular Filtration Rate > 60, Glucose Level 97, Calcium Level 8.3L, Total Bilirubin 1.2, Direct Bilirubin 0.6H, Aspartate Amino Transf (AST/SGOT) 248H, Alanine Aminotransferase (ALT/SGPT) 256H, Alkaline Phosphatase 404H, Total Protein 6.1L, Albumin 2.5L, Globulin 3.6, Albumin/ Globulin Ratio 0.6L, Immunoglobulin G [Pending], Anti-Nuclear Antibody Screen [ Pending], SmRNP Antibodies [Pending] Height (Feet): 5 Height (Inches): 6.00 Weight (Pounds): 217 General Appearance: no apparent distress, alert, overweight Neurologic: alert, oriented x 3, responsive, depressed affect Jeanne Swenson M.D. Dec 21, 2016 22:59
--- NOTE | 2016-12-21 23:53 | Cardiology Progress Note ---
Assessment/Plan Assessment/Plan 1. Sinus tachycardia, resolved, possibly due to ETOH withdrawal syndrome vs SIRS due to acute pancreatitis, will continue propranolol. 2. Hypotension, resolved, ?third-spacing, pain meds, hydration Subjective Subjective No cardiac events reported. No chest pain or SOB reported. Objective Last 24 Hour Vital Signs Date Time Temp Pulse Resp B/P (MAP) Pulse Ox O2 Delivery O2 Flow Rate FiO2 12/21/16 14:09 81 115/74 12/21/16 13:00 99/65 12/21/16 12:00 97.5 79 18 119/60 99 Room Air 12/21/16 08:20 120/70 12/21/16 08:00 97.5 79 18 103/71 97 Room Air 12/21/16 05:40 81 117/77 12/21/16 04:00 97.1 81 18 117/77 99 Room Air 12/21/16 02:56 97.6 Laboratory Tests Test 12/21/16 05:30 White Blood Count 5.2 K/UL (4.8-10.8) Red Blood Count 2.33 M/UL (4.20-5.40) L Hemoglobin 9.1 G/DL (12.0-16.0) L Hematocrit 28.5 % (37.0-47.0) L Mean Corpuscular Volume 122 FL (80-99) H Mean Corpuscular Hemoglobin 39.1 PG (27.0-31.0) H Mean Corpuscular Hemoglobin Concent 32.0 G/DL (32.0-36.0) Red Cell Distribution Width 17.9 % (11.6-14.8) H Platelet Count 498 K/UL (150-450) H Mean Platelet Volume 5.0 FL (6.5-10.1) L Neutrophils (%) (Auto) % (45.0-75.0) Lymphocytes (%) (Auto) % (20.0-45.0) Monocytes (%) (Auto) % (1.0-10.0) Eosinophils (%) (Auto) % (0.0-3.0) Basophils (%) (Auto) % (0.0-2.0) Differential Total Cells Counted 100 Neutrophils % (Manual) 41 % (45-75) L Lymphocytes % (Manual) 47 % (20-45) H Monocytes % (Manual) 10 % (1-10) Eosinophils % (Manual) 2 % (0-3) Basophils % (Manual) 0 % (0-2) Band Neutrophils 0 % (0-8) Platelet Estimate Adequate Platelet Morphology Normal Poikilocytosis 1+ Anisocytosis 1+ Macrocytosis 2+ Stomatocytes 1+ Sodium Level 135 mEQ/L (135-145) Potassium Level 3.0 mEQ/L (3.4-4.9) L Chloride Level 98 mEQ/L (98-107) Carbon Dioxide Level 28 mEQ/L (20-30) Anion Gap 9 (5-15) Blood Urea Nitrogen 7 mg/dL (7-23) Creatinine 0.5 mg/dL (0.5-0.9) Estimat Glomerular Filtration Rate > 60 mL/min (>60) Glucose Level 97 mg/dL (74-106) Calcium Level 8.3 mg/dL (8.6-10.2) L Total Bilirubin 1.2 mg/dL (0.0-1.2) Direct Bilirubin 0.6 mg/dL (0.1-0.3) H Aspartate Amino Transf (AST/SGOT) 248 U/L (5-40) H Alanine Aminotransferase (ALT/SGPT) 256 U/L (3-33) H Alkaline Phosphatase 404 U/L (35-104) H Total Protein 6.1 g/dL (6.6-8.7) L Albumin 2.5 g/dL (3.5-5.2) L Globulin 3.6 g/dL Albumin/Globulin Ratio 0.6 (1.0-2.7) L Immunoglobulin G Pending Anti-Nuclear Antibody Screen Pending SmRNP Antibodies Pending Objective HEENT: Atraumatic and normocephalic. Pupils are equal, round, and reactive to light and accommodation. Extraocular muscles intact. NECK: JVP is 5 centimeter. No carotid bruit. Carotid upstrokes 2+ bilaterally. CARDIOVASCULAR: Normal S1 and S2. Regular rate and rhythm. Tachycardic. No murmurs, gallops, or rubs. LUNGS: Clear to auscultation bilaterally. The patient has no wheezing. ABDOMEN: Soft, nontender, and nondistended. No hepatosplenomegaly. Positive bowel sounds. EXTREMITIES: There is swelling, erythema, and discharge from the axillary area, right greater than left. There is no edema, clubbing or cyanosis on the lower extremities. MARYA LOYOLA Dec 21, 2016 23:53
[2016-12-22 08:58] LABS: IMMUNOGLOBULIN G 1564 mg/dL (700-1600)
[2016-12-22 18:37] LABS: ANTI-NUCLEAR ANTIBODY SCREEN Negative (Negative); SM/RNP ANTIBODY <0.2 AI (0.0-0.9)
--- NOTE | 2016-12-23 14:29 | Discharge Summary ---
Discharge Summary Hospital Course Date of Admission Dec 14, 2016 at 17:21 Date of Discharge Dec 21, 2016 at 17:52 Admitting Diagnosis - hidradenitis sup., generalized weakness HPI Alyssa Trevino is a 41 year old female who was admitted on Dec 14, 2016 at 17: 21 for Hidradenitis Sup, Generalized Weakness Hospital Course [id number] Discharge Discharge Disposition Patient was discharged to SNF/Subacute Facility(03) Discharge Diagnoses: Rachael Kellogg NP Dec 23, 2016 14:29
--- NOTE | 2016-12-24 07:15 | Discharge Summary 2 SIG ---
DATE OF ADMISSION: 12/14/2016 DATE OF DISCHARGE: 12/21/2016 CONSULTANTS: 1. Bushra Lai M.D. 2. Javan Rawls M.D. 3. Ritchie Melendez M.D. 4. Jeanne Swenson M.D. 5. Yane Moore M.D. 6. Santos Jones M.D. BRIEF HOSPITAL COURSE: The patient is a 41-year-old female who was brought in by ambulance due to generalized weakness, shortness of breath, as well as chest pain. The patient has history of alcohol abuse and had been drinking heavily and went on alcohol binge. She was noted to have wounds on the axillary region and has a history of hydradenitis suppurativa. On evaluation at ED, blood work showed markedly elevated lactic acid 13, anion gap of 36, and carbon dioxide level of 9. She was given IV hydration. Urinalysis showed evidence of urinary tract infection. ABG also showed metabolic acidosis with respiratory compensation. She was then admitted to [facility] and was started empirically on cefepime and clindamycin. She was also kept NPO. Lipase was elevated to 1939, possibly due to ETOH. LFTs were also elevated. She was given IV hydration and Librium p.r.n. She was given local wound care on the axillary area, perineal and abdominal fold hydradenitis. She had hyponatremia, sodium of 118 and on urine studies had high specific gravity showing some degree of hypovolemic hyponatremia. She was given D5NS. She remained tachycardic. EKG done at ED showed tachycardia at 110 with possible septal infarct, age indeterminate. There was no ST to T-wave abnormalities noted. Troponin was negative. Sinus tachycardia was assessed to be likely secondary to systemic inflammatory response disease due to acute pancreatitis and was given propranolol and continued on IV hydration. Urine culture showed growth of Klebsiella pneumoniae and Alejandra albicans. Suspect urinary tract infection may be due to yeast and Klebsiella pneumonia. She was given cefepime and fluconazole. Blood culture was negative, however was continued with clindamycin and cefepime. She was given pain management consisting of [place] and morphine. She was also seen by Dr. Swenson, as the patient was presenting with anxiety and has decreased appetite and difficulty sleeping. She was diagnosed to have alcohol dependence, alcohol intoxication, which resolved. Global assessment functioning of 20%. The patient started on fluoxetine 20 mg, which is good for anxiety. Ativan was changed to Valium, which is longer acting benzodiazepine. Lipase and amylase down trended. Hepatitis panel was negative. Diet was advanced and was tolerating diet. Discriminating factor calculated at 19. So, there is no risk for steroids and she was eventually discharged to SNF. FINAL DIAGNOSES: 1. Severe acidosis with acute alcohol intoxication. 2. Acute pancreatitis. 3. Sepsis. 4. Morbid obesity. 5. Hydradenitis. 6. Urinary tract infection with Klebsiella and yeast. 7. Acute hypovolemic hyponatremia. 8. Anemia of chronic disease. 9. Acute renal failure. 10. Sinus tachycardia, resolved. 11. Fatty liver. 12. Alcoholic pancreatitis. 13. Alcoholic liver disease. 14. Urinary tract infection with Klebsiella. DISPOSITION: The patient was discharged to [facility]. DISCHARGE MEDICATIONS: Refer to medication list. Franky Olvera D.O. I have been assigned to dictate discharge summary on this account and I was not involved in the patient's management. Rachael Kellogg N.P. DR: Shelley JOB#: [id number] CC:
== END 2016-12-21 17:52 | DRG 871 ==
LOC: EDBD 14:18 → EMR 17:18 → 2W 17:21 → 2E 17:21 → UNDOADMIN 17:21 → EDBEDREQ 19:51 → EDBEDREQSVC 23:05 → EDBEDREQTM 23:05 → EDBEDREQ 23:41 → 2W 12-15 00:56 → 2E 12-15 17:56 → 4E 12-16 16:43
DX: A41.9 Sepsis, unspecified organism (principal); N17.0 Acute kidney failure with tubular necrosis; E87.2 Acidosis; K85.20 Alcohol induced acute pancreatitis without necrosis or infection; E46 Unspecified protein-calorie malnutrition; E87.1 Hypo-osmolality and hyponatremia; E83.51 Hypocalcemia; B37.49 Other urogenital candidiasis; L03.311 Cellulitis of abdominal wall; F10.239 Alcohol dependence with withdrawal, unspecified; F10.229 Alcohol dependence with intoxication, unspecified; Z68.35 Body mass index [BMI] 35.0-35.9, adult; K70.10 Alcoholic hepatitis without ascites; K76.0 Fatty (change of) liver, not elsewhere classified; K21.9 Gastro-esophageal reflux disease without esophagitis; L73.2 Hidradenitis suppurativa; F41.9 Anxiety disorder, unspecified; R73.9 Hyperglycemia, unspecified; E66.01 Morbid (severe) obesity due to excess calories; K70.30 Alcoholic cirrhosis of liver without ascites; D53.9 Nutritional anemia, unspecified; E87.6 Hypokalemia; F32.9 Major depressive disorder, single episode, unspecified; M51.36 Other intervertebral disc degeneration, lumbar region; M47.9 Spondylosis, unspecified; B96.1 Klebsiella pneumoniae [K. pneumoniae] as the cause of diseases classified elsewhere
CPT/HCPCS: 36415; 36600; 76700; 80053; 80300; 80329; 81001; 81003; 82140; 82150; 82248; 82270; 82306; 82533; 82550; 82553; 82570; 82607; 82728; 82746; 82784; 82803; 82962; 83540; 83550; 83605; 83690; 83735; 83930; 83935; 84100; 84295; 84300; 84439; 84443; 84481; 84484; 84550; 85007; 85025; 85044; 85610; 85651; 85730; 86039; 86140; 86235; 86705; 86709; 86803; 87040; 87070; 87086; 87181; 87205; 87324; 87340; 93005; J8499; S0077

== ENCOUNTER 2017-01-05 19:16 | Inpatient (IN) | payer MEDICARE, OTHER ==
[~2017-01-05] VITALS: Ht 172.7 cm; Wt 90.3 kg
[~2017-01-05 19:16] MED LIST changes: +DIAZEPAM5 MG ORAL; +FLUCONAZOLE100 MG ORAL; +FLUOXETINE HCL20 MG ORAL; +INDERAL10 MG ORAL; +RANITIDINE HCL150 MG ORAL; +VIBRAMYCIN100 MG ORAL
[2017-01-05 20:01] LABS: MEAN CORPUSCULAR HEMOGLOBIN 36.7 PG (27.0-31.0); MEAN CORPUSCULAR HGB CONC 32.9 G/DL (32.0-36.0); MEAN CORPUSCULAR VOLUME 112 FL (80-99); MEAN PLATELET VOLUME 5.4 FL (6.5-10.1); PLATELET COUNT 318 K/UL (150-450); RED BLOOD COUNT 3.03 M/UL (4.20-5.40); RED CELL DISTRIBUTION WIDTH 16.8 % (11.6-14.8)
[2017-01-05 20:16] LABS: ALANINE AMINOTRANSFERASE 37 U/L (3-33); ALBUMIN/GLOBULIN RATIO 0.6 (1.0-2.7); ANION GAP 10 (5-15); ASPARTATE AMINO TRANSFERASE 93 U/L (5-40); CALCIUM 8.6 mg/dL (8.6-10.2); CARBON DIOXIDE 26 mEQ/L (20-30); CHLORIDE 105 mEQ/L (98-107); CREATININE 0.5 mg/dL (0.5-0.9); GLOMERULAR FILTRATION RATE > 60 mL/min (>60); HEMOLYSIS 10; LIPASE 24 U/L (< 60); POTASSIUM 3.6 mEQ/L (3.4-4.9); SODIUM 141 mEQ/L (135-145); TOTAL PROTEIN 6.7 g/dL (6.6-8.7)
[2017-01-05] MEDS ORDERED: HIBICLENS118 ML TP (20:27)
[2017-01-05] MEDS ORDERED: POTASSIUM CHLOR8 ME2 PO (20:27)
[2017-01-05] MEDS ORDERED: VIBRAMYCIN100 MG ORAL (20:27)
[2017-01-05 20:38] LABS: ANISOCYTOSIS 1+; BAND NEUTROPHILS % (MANUAL) 3 % (0-8); BASOPHILS % (MANUAL) 1 % (0-2); EOSINOPHILS % (MANUAL) 4 % (0-3); HYPOCHROMASIA 1+; LYMPHOCYTES % (MANUAL) 47 % (20-45); MACROCYTES 2+; NEUTROPHILS % (MANUAL) 36 % (45-75); PLATELET ESTIMATE ADEQUATE; PLATELET MORPHOLOGY NORMAL; TOTAL CELLS COUNTED 100
[2017-01-05 20:41] LABS: APPEARANCE,URINE CLEAR; KETONES,URINE NEGATIVE (NEGATIVE); LEUKOCYTE ESTERASE ,URINE 2+ (NEGATIVE); NITRITE,URINE NEGATIVE (NEGATIVE); PH,URINE 6 (4.5-8.0); PROTEIN,URINE NEGATIVE (NEGATIVE); UROBILINOGEN,URINE NORMAL MG/DL (0.0-1.0)
[2017-01-05 20:53] LABS: BACTERIA,URINE FEW /HPF; RBC,URINE 0-2 /HPF (0 - 2); SQUAMOUS EPITHELIAL CELL,UR FEW /LPF (NONE/OCC)
[2017-01-05] MEDS ORDERED: Morphine Sulfate 2mg/ml Inj IVP ONE (21:00)
--- NOTE | 2017-01-05 21:09 | Emergency Room Report ---
History of Present Illness General Chief Complaint: Abdominal Pain Source: Patient Present Illness HPI 41YOF sent from rehab facility for ?low BP during RT/OT and generalized weakness /malaise Patient also c/o abd pain for 2 weeks without assoc nausea/vomiting, fever/ chills, diarrhea, urinary complaints Sharp pain 5/10 to bilateral lower abdomen. States was recently admitted for pancreatitis Denies lower extremity loss of motor strength Allergies: Coded Allergies: IBUPROFEN (Verified Allergy, Severe, Anaphylaxis, 06/12/16) swollen face and lips NSAIDS (NON-STEROIDAL ANTI-INFLAMMA (Verified Allergy, Severe, Anaphylaxis , 06/12/16) swollen face and lips Uncoded Allergies: NSAIDS include Ibuprofen (Adverse Reaction, Severe, Anaphylaxis, 06/11/16) Swollen face and lip Patient History Past Medical History: see triage record, old chart reviewed, other - pancreatitis Past Surgical History: none Pertinent Family History: none Social History: Denies: smoking, alcohol use, drug use Last Menstrual Period: 3 weeks ago Now: No Immunizations: UTD Reviewed Nursing Documentation: PMH: Agreed, PSxH: Agreed Nursing Documentation-PMH Past Medical History: No History, Except For Hx Cardiac Problems: No Hx Hypertension: Yes Hx Cancer: No Hx Gastrointestinal Problems: Yes - sepsis, hidradenitis (left upper arm), GERD , Pancretits Hx Neurological Problems: Yes - anxiety disorder Review of Systems All Other Systems: negative except mentioned in HPI Physical Exam Vital Signs Date Time Temp Pulse Resp B/P (MAP) Pulse Ox O2 Delivery O2 Flow Rate FiO2 01/05/17 19:11 98.1 75 16 136/65 95 Room Air Sp02 EP Interpretation: reviewed, normal General Appearance: normal inspection, well appearing, no apparent distress, alert, GCS 15, non-toxic, obese Head: normocephalic, atraumatic Eyes: bilateral eye PERRL, bilateral eye EOMI ENT: normal ENT inspection, hearing grossly normal, normal voice Neck: normal inspection, full range of motion, supple, no bony tend Respiratory: normal inspection, lungs clear, normal breath sounds, no respiratory distress, no retraction, no wheezing Cardiovascular #1: regular rate, rhythm, no edema Gastrointestinal: normal inspection, normal bowel sounds, non tender, soft, no guarding, no hernia Genitourinary: no CVA tenderness Musculoskeletal: normal inspection, back normal, normal range of motion, Prosper' s Sign negative Neurologic: normal inspection, alert, oriented x3, responsive, 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 Afebrile. BP has been stable here/elevated No leuks. H&H stable. LFTs with mild transaminitis. Lipase normal. UA negative for UTI Was given analgesia Endorsed to Dr Olvera for med/surg admission at 910pm Last Vital Signs Date Time Temp Pulse Resp B/P (MAP) Pulse Ox O2 Delivery O2 Flow Rate FiO2 01/05/17 19:11 98.1 75 16 136/65 95 Room Air Status: improved Disposition: ADMITTED INPATIENT Condition: Serious CLYDE MOHAMUD M.D. Jan 05, 2017 21:09
[2017-01-05 21:20] VITALS: BP 155/86
[2017-01-05] MEDS ORDERED: Norco 5mg/325mg tab ORAL ONE (23:30)
[2017-01-06] MEDS ORDERED: LORazepam Inj 2mg/ml 1ml IV PRN (06:45)
[2017-01-06] MEDS ORDERED: Miralax 17gm pkt ORAL PRN (06:45)
[2017-01-06] MEDS ORDERED: Mylanta II UD 30ml ORAL PRN (06:45)
[2017-01-06] MEDS ORDERED: Zolpidem 5mg tab ORAL PRN (06:45)
[2017-01-06] MEDS: Morphine Sulfate 2mg/ml Inj IVP PRN ×2 (09:55→13:34)
--- NOTE | 2017-01-06 11:43 | Consultation ---
History of Present Illness General Date patient seen: Jan 06, 2017 Time patient seen: 10:45 Chief Complaint: Abdominal Pain Referring physician: dr Olvera Reason for Consultation: inpatietn management Present Illness HPI 41y/old sent from rehab facility for low BP during PT/OT and generalized weakness Patient also c/o abdominal pain for 2 weeks without associated nausea/vomiting , fever/chills, diarrhea, urinary complaints patient with PMH significant for alcoholic hepatitis, pancreatitis, fatty liver prior admission in November abdominal pain described as sharp , 09/07, workup in ED revealed no leukocytosis, no fever UA negative lipase WNL elevated AST and ALT but trending down c/w prior admission prior US revealed fatty liver last ETOH intake about 3 weeks ago as per patient BP 136/65 Allergies: Coded Allergies: IBUPROFEN (Verified Allergy, Severe, Anaphylaxis, 06/12/16) swollen face and lips NSAIDS (NON-STEROIDAL ANTI-INFLAMMA (Verified Allergy, Severe, Anaphylaxis , 06/12/16) swollen face and lips Uncoded Allergies: NSAIDS include Ibuprofen (Adverse Reaction, Severe, Anaphylaxis, 06/11/16) Swollen face and lip Medication History Scheduled Cephalexin* (Keflex*), 500 MG ORAL FOUR TIMES A DAY, (Reported) Cephalexin* (Keflex*), 500 MG ORAL FOUR TIMES A DAY, (Reported) Clindamycin HCl (Clindamycin HCl), 450 MG ORAL EVERY 8 HOURS, (Reported) Docusate Sodium* (Colace*), 100 MG ORAL THREE TIMES A DAY Doxycycline Hyclate* (Vibramycin*), 100 MG ORAL EVERY 12 HOURS, (Reported) Doxycycline Hyclate* (Vibramycin*), 100 MG ORAL EVERY 12 HOURS, (Reported) Doxycycline Hyclate* (Vibramycin*), 100 MG ORAL EVERY 12 HOURS, (Reported) Fluconazole (Fluconazole), 200 MG ORAL DAILY, (Reported) Fluconazole (Fluconazole), 100 MG ORAL DAILY, (Reported) Fluoxetine Hcl* (Fluoxetine Hcl*), 20 MG ORAL DAILY Folic Acid* (Folic Acid*), 1 MG ORAL DAILY Levofloxacin* (Levaquin*), 500 MG ORAL DAILY, (Reported) No Known Medications* (NKM - No Known Medications*), 0 ., (Reported) Potassium Chloride (Potassium Chloride), 20 MEQ PO DAILY, (Reported) Propranolol HCl (Propranolol HCl), 20 MG ORAL Q8HR Ranitidine Hcl* (Zantac*), 150 MG ORAL BEDTIME Scheduled PRN Diazepam* (Diazepam*), 10 MG ORAL Q4H PRN Hydrocodone Bit/Acetaminophen 5-325* ([place] 5-325 Tablet*), 1 TAB ORAL Q4H PRN for For Pain, (Reported) Hydrocodone Bit/Acetaminophen 5-325* ([place] 5-325*), 1 TAB ORAL Q6H PRN for For Pain Hydrocodone Bit/Acetaminophen 5-325* ([place] 5-325*), 1 TAB ORAL Q6H PRN Miscellaneous Medications Chlorhexidine Gluconate* (Hibiclens*), 118 ML TP, (Reported) Patient History History Provided By: Patient Healthcare decision maker Resuscitation status Advanced Directive on File Past Medical/Surgical History Past Medical/Surgical History: (1) GERD (gastroesophageal reflux disease) (2) Alcoholic pancreatitis (3) Anxiety (4) Alcoholic hepatitis (5) Hydradenitis (6) Fatty liver (7) Acute alcohol intoxication Review of Systems Constitutional: Reports: weakness Eye: Reports: no symptoms ENT: Reports: no symptoms Respiratory: Reports: no symptoms Cardiovascular: Reports: no symptoms, other - hx of HTN Gastrointestinal: Reports: see HPI Genitourinary: Reports: no symptoms Musculoskeletal: Reports: no symptoms Skin: Reports: other - hydradenitis axillary Psychiatric: Reports: anxiety Neurological: Reports: no symptoms Endocrine: Reports: no symptoms Hematologic/Lymphatic: Reports: anemia Physical Exam Lines, tubes and drains: peripheral HEENT: normocephalic, atraumatic, anicteric Neck: non-tender, normal alignment Respiratory/Chest: lungs clear - with moderate air entry Cardiovascular/Chest: normal peripheral pulses, normal rate, regular rhythm Abdomen: normal bowel sounds, non tender - obese, soft - no guarding, no rebound Extremities: normal range of motion, non-tender, no calf tenderness Skin Exam: warm/dry Neurologic: no motor/sensory deficits, alert, responsive Musculoskeletal: normal muscle bulk Last 24 Hour Vital Signs Date Time Temp Pulse Resp B/P (MAP) Pulse Ox O2 Delivery O2 Flow Rate FiO2 01/06/17 00:12 98.1 65 18 155/86 95 Room Air 01/05/17 21:20 98.1 65 18 155/86 95 Room Air 01/05/17 19:11 98.1 75 16 136/65 95 Room Air Intake and Output 01/06/17 01/07/17 19:00 07:00 Intake Total 240 ml Balance 240 ml Intake Oral 240 ml Laboratory Tests Test 01/05/17 19:49 01/05/17 20:21 White Blood Count 5.0 K/UL (4.8-10.8) Red Blood Count 3.03 M/UL (4.20-5.40) L Hemoglobin 11.1 G/DL (12.0-16.0) L Hematocrit 33.9 % (37.0-47.0) L Mean Corpuscular Volume 112 FL (80-99) H Mean Corpuscular Hemoglobin 36.7 PG (27.0-31.0) H Mean Corpuscular Hemoglobin Concent 32.9 G/DL (32.0-36.0) Red Cell Distribution Width 16.8 % (11.6-14.8) H Platelet Count 318 K/UL (150-450) Mean Platelet Volume 5.4 FL (6.5-10.1) L Neutrophils (%) (Auto) % (45.0-75.0) Lymphocytes (%) (Auto) % (20.0-45.0) Monocytes (%) (Auto) % (1.0-10.0) Eosinophils (%) (Auto) % (0.0-3.0) Basophils (%) (Auto) % (0.0-2.0) Differential Total Cells Counted 100 Neutrophils % (Manual) 36 % (45-75) L Lymphocytes % (Manual) 47 % (20-45) H Monocytes % (Manual) 9 % (1-10) Eosinophils % (Manual) 4 % (0-3) H Basophils % (Manual) 1 % (0-2) Band Neutrophils 3 % (0-8) Platelet Estimate Adequate Platelet Morphology Normal Hypochromasia 1+ Anisocytosis 1+ Macrocytosis 2+ Sodium Level 141 mEQ/L (135-145) Potassium Level 3.6 mEQ/L (3.4-4.9) Chloride Level 105 mEQ/L (98-107) Carbon Dioxide Level 26 mEQ/L (20-30) Anion Gap 10 (5-15) Blood Urea Nitrogen 7 mg/dL (7-23) Creatinine 0.5 mg/dL (0.5-0.9) Estimat Glomerular Filtration Rate > 60 mL/min (>60) Glucose Level 84 mg/dL (74-106) Calcium Level 8.6 mg/dL (8.6-10.2) Total Bilirubin 0.4 mg/dL (0.0-1.2) Aspartate Amino Transf (AST/SGOT) 93 U/L (5-40) H Alanine Aminotransferase (ALT/SGPT) 37 U/L (3-33) H Alkaline Phosphatase 124 U/L (35-104) H Total Protein 6.7 g/dL (6.6-8.7) Albumin 2.7 g/dL (3.5-5.2) L Globulin 4.0 g/dL Albumin/Globulin Ratio 0.6 (1.0-2.7) L Lipase 24 U/L (< 60) Urine Color Pale yellow Urine Appearance Clear Urine pH 6 (4.5-8.0) Urine Specific [place] 1.015 (1.005-1.035) Urine Protein Negative (NEGATIVE) Urine Glucose (UA) Negative (NEGATIVE) Urine Ketones Negative (NEGATIVE) Urine Occult Blood Negative (NEGATIVE) Urine Nitrite Negative (NEGATIVE) Urine Bilirubin Negative (NEGATIVE) Urine Urobilinogen Normal MG/DL (0.0-1.0) Urine Leukocyte Esterase 2+ (NEGATIVE) H Urine RBC 0-2 /HPF (0 - 2) Urine WBC 2-4 /HPF (0 - 2) Urine Squamous Epithelial Cells Few /LPF (NONE/OCC) Urine Bacteria Few /HPF (NONE) Urine Opiates Screen Positive (NEGATIVE) H Urine Barbiturates Screen Negative (NEGATIVE) Phencyclidine (PCP) Screen Negative (NEGATIVE) Urine Amphetamines Screen Negative (NEGATIVE) Urine Benzodiazepines Screen Positive (NEGATIVE) H Urine Cocaine Screen Negative (NEGATIVE) Urine Marijuana (THC) Screen Negative (NEGATIVE) Height (Feet): 5 Height (Inches): 8.00 Weight (Pounds): 199 Medications Current Medications Medications (Trade) Dose Ordered Sig/Payam Route PRN Reason Start Time Stop Time Status Last Admin Dose Admin Acetaminophen (Tylenol) 650 mg Q4H PRN ORAL fever 01/06/17 06:45 02/05/17 06:44 Al Hydroxide/Mg Hydroxide (Mylanta II) 30 ml Q6H PRN ORAL dyspepsia 01/06/17 06:45 02/05/17 06:44 Dextrose (Dextrose 50%) STAT PRN IV Hypoglycemia 01/06/17 06:45 02/05/17 06:44 Diazepam (Valium) 10 mg Q4H PRN ORAL anxiety 01/06/17 06:45 01/13/17 06:44 Fluoxetine HCl (PROzac) 20 mg DAILY ORAL 01/06/17 09:00 02/05/17 08:59 01/06/17 09:54 Lorazepam (Ativan 2mg/ml 1ml) 0.5 mg Q4H PRN IV For Anxiety 01/06/17 06:45 01/13/17 06:44 UNV Morphine Sulfate (Morphine Sulfate) 1 mg EVERY 4 HOURS PRN IVP For Pain 01/06/17 06:45 01/13/17 06:44 01/06/17 09:55 Ondansetron HCl (Zofran) 4 mg Q6H PRN IVP Nausea & Vomiting 01/06/17 06:45 02/05/17 06:44 Polyethylene Glycol (Miralax) 17 gm HSPRN PRN ORAL Constipation 01/06/17 06:45 02/05/17 06:44 Zolpidem Tartrate (Ambien) 5 mg HSPRN PRN ORAL Insomnia 01/06/17 06:45 01/13/17 06:44 Assessment/Plan Assessment/Plan ASSESSMENT abdominal pain transaminitis alcoholic hepatitis anemia anxiety disorder PLAN OF CARE MS floor pain management 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
[2017-01-06 12:00] VITALS: BP 138/64
--- NOTE | 2017-01-06 14:46 | GI Initial Consult Note ---
History of Present Illness General Date patient seen: Jan 06, 2017 Time patient seen: 14:32 Reason for Hospitalization: Abdominal Pain Referring physician: dr Olvera Reason for Consultation: ABDOMINAL PAIN Present Illness HPI [id number] sent from rehab facility for ?low BP during RT/OT and generalized weakness /malaise Patient also c/o abd pain for 2 weeks without assoc nausea/vomiting, fever/ chills, diarrhea, urinary complaints Sharp pain 5/10 to bilateral lower abdomen. States was recently admitted for pancreatitis Denies lower extremity loss of motor strength GI Consult. HPI as noted above. GI consulted for abdominal pain. Patient was recent admission here x 3 week ago for alcoholic hepatitis presents today with abdominal pain unknown etiology. Pt seen on floor, awake A&Ox4 NAD c/o of 10/10 abdominal pain currently NPO for abdominal U/S. Utox unremarkable given current medication list. Labs show macrocytic hyperchromic anemia, hypoalbuminemia and abnormal LFTs. Lipase negative. Service Date: 12/15/16 Procedure: US ABD Complete Indication: Abdominal pain, alcohol abuse, abnormal liver function tests Impression: Negative for gallstones or dilated ducts Enlarged fatty liver, also described previously Note suboptimal visualization of pancreas and abdominal aorta Home Meds Active Scripts Ranitidine Hcl* (ZANTAC*) 150 Mg Tablet, 150 MG ORAL BEDTIME for 30 Days, TAB Prov:RR,MIR12/21/16 Propranolol HCl (Propranolol HCl) 10 Mg Tablet, 20 MG ORAL Q8HR for 30 Days, TAB Prov:RR,MIRALI 12/21/16 Hydrocodone Bit/Acetaminophen 5-325* (NORCO 5-325*) 1 Each Tablet, 1 TAB ORAL Q6H Y for 30 Days, TAB Prov:RR,MIRALI 12/21/16 Fluoxetine Hcl* (FLUOXETINE HCL*) 20 Mg Capsule, 20 MG ORAL DAILY for 30 Days, CAP Prov:RRABI,MIR12/21/16 Diazepam* (DIAZEPAM*) 5 Mg Tablet, 10 MG ORAL Q4H Y for 30 Days, TAB Prov:RR,12/21/16 Docusate Sodium* (COLACE*) 100 Mg Capsule, 100 MG ORAL THREE TIMES A DAY, #20 CAP Prov:MARTINA CREWS D.O. 07/14/16 Hydrocodone Bit/Acetaminophen 5-325* (NORCO 5-325*) 1 Each Tablet, 1 TAB ORAL Q6H Y for For Pain, #10 TAB 0 Refills Prov:MARTINA CREWS D.O. 07/14/16 Folic Acid* (FOLIC ACID*) 1 Mg Tablet, 1 MG ORAL DAILY, #30 TAB Prov:Jose (Vanchtein)Juhi [employer] SPECIALIST 06/22/16 Reported Medications Potassium Chloride (POTASSIUM CHLORIDE) 8 Meq Capsule.er, 20 MEQ PO DAILY, CAP 01/05/17 Chlorhexidine Gluconate* (HIBICLENS*) 118 Ml Liquid, 118 ML TP, ML 01/05/17 Doxycycline Hyclate* (VIBRAMYCIN*) 100 Mg Capsule, 100 MG ORAL EVERY 12 HOURS, # 14 CAP 0 Refills 01/05/17 Fluconazole (FLUCONAZOLE) 100 Mg Tablet, 100 MG ORAL DAILY for 14 Days, TAB 0 Refills 12/21/16 Doxycycline Hyclate* (VIBRAMYCIN*) 100 Mg Capsule, 100 MG ORAL EVERY 12 HOURS for 14 Days, CAP 0 Refills 12/21/16 Cephalexin* (KEFLEX*) 500 Mg Capsule, 500 MG ORAL FOUR TIMES A DAY for 14 Days, CAP 0 Refills 12/21/16 Cephalexin* (KEFLEX*) 500 Mg Capsule, 500 MG ORAL FOUR TIMES A DAY, CAP 0 Refills 12/21/16 Fluconazole (FLUCONAZOLE) 100 Mg Tablet, 200 MG ORAL DAILY, #7 TAB 0 Refills 12/21/16 Doxycycline Hyclate* (VIBRAMYCIN*) 100 Mg Capsule, 100 MG ORAL EVERY 12 HOURS, CAP 0 Refills 12/21/16 Hydrocodone Bit/Acetaminophen 5-325* (NORCO 5-325 TABLET*) 1 Each Tablet, 1 TAB ORAL Q4H Y for For Pain, TAB 06/20/16 Clindamycin HCl (Clindamycin HCl) 300 Mg Capsule, 450 MG ORAL EVERY 8 HOURS for 10 Days, CAP 06/20/16 Levofloxacin* (LEVAQUIN*) 500 Mg Tablet, 500 MG ORAL DAILY for 10 Days, TAB 06/20/16 No Known Medications* (NKM - No Known Medications*) ., 0 . 03/24/12 Med list reviewed/reconciled: Yes Allergies: Coded Allergies: IBUPROFEN (Verified Allergy, Severe, Anaphylaxis, 06/12/16) swollen face and lips NSAIDS (NON-STEROIDAL ANTI-INFLAMMA (Verified Allergy, Severe, Anaphylaxis , 06/12/16) swollen face and lips Uncoded Allergies: NSAIDS include Ibuprofen (Adverse Reaction, Severe, Anaphylaxis, 06/11/16) Swollen face and lip Patient History History Provided By: Patient, Medical Record PMH Narrative Past Medical History: see triage record, old chart reviewed, other - pancreatitis Past Surgical History: none Pertinent Family History: none Social History: Denies: smoking, alcohol use, drug use Last Menstrual Period: 3 weeks ago Now: No Immunizations: UTD Reviewed Nursing Documentation: PMH: Agreed, PSxH: Agreed Nursing Documentation-PMH Past Medical History: No History, Except For Hx Cardiac Problems: No Hx Hypertension: Yes Hx Cancer: No Hx Gastrointestinal Problems: Yes - sepsis, hidradenitis (left upper arm), GERD , Pancretits Hx Neurological Problems: Yes - anxiety disorder Social History: Reports: alcohol use Review of Systems All Other Systems: negative except mentioned in HPI Physical Exam Vital Signs Date Time Temp Pulse Resp B/P (MAP) Pulse Ox O2 Delivery O2 Flow Rate FiO2 01/05/17 19:11 98.1 75 16 136/65 95 Room Air Sp02 EP Interpretation: reviewed Labs Laboratory Tests Test 01/05/17 19:49 01/05/17 20:21 White Blood Count 5.0 K/UL (4.8-10.8) Red Blood Count 3.03 M/UL (4.20-5.40) L Hemoglobin 11.1 G/DL (12.0-16.0) L Hematocrit 33.9 % (37.0-47.0) L Mean Corpuscular Volume 112 FL (80-99) H Mean Corpuscular Hemoglobin 36.7 PG (27.0-31.0) H Mean Corpuscular Hemoglobin Concent 32.9 G/DL (32.0-36.0) Red Cell Distribution Width 16.8 % (11.6-14.8) H Platelet Count 318 K/UL (150-450) Mean Platelet Volume 5.4 FL (6.5-10.1) L Neutrophils (%) (Auto) % (45.0-75.0) Lymphocytes (%) (Auto) % (20.0-45.0) Monocytes (%) (Auto) % (1.0-10.0) Eosinophils (%) (Auto) % (0.0-3.0) Basophils (%) (Auto) % (0.0-2.0) Differential Total Cells Counted 100 Neutrophils % (Manual) 36 % (45-75) L Lymphocytes % (Manual) 47 % (20-45) H Monocytes % (Manual) 9 % (1-10) Eosinophils % (Manual) 4 % (0-3) H Basophils % (Manual) 1 % (0-2) Band Neutrophils 3 % (0-8) Platelet Estimate Adequate Platelet Morphology Normal Hypochromasia 1+ Anisocytosis 1+ Macrocytosis 2+ Sodium Level 141 mEQ/L (135-145) Potassium Level 3.6 mEQ/L (3.4-4.9) Chloride Level 105 mEQ/L (98-107) Carbon Dioxide Level 26 mEQ/L (20-30) Anion Gap 10 (5-15) Blood Urea Nitrogen 7 mg/dL (7-23) Creatinine 0.5 mg/dL (0.5-0.9) Estimat Glomerular Filtration Rate > 60 mL/min (>60) Glucose Level 84 mg/dL (74-106) Calcium Level 8.6 mg/dL (8.6-10.2) Total Bilirubin 0.4 mg/dL (0.0-1.2) Aspartate Amino Transf (AST/SGOT) 93 U/L (5-40) H Alanine Aminotransferase (ALT/SGPT) 37 U/L (3-33) H Alkaline Phosphatase 124 U/L (35-104) H Total Protein 6.7 g/dL (6.6-8.7) Albumin 2.7 g/dL (3.5-5.2) L Globulin 4.0 g/dL Albumin/Globulin Ratio 0.6 (1.0-2.7) L Lipase 24 U/L (< 60) Urine Color Pale yellow Urine Appearance Clear Urine pH 6 (4.5-8.0) Urine Specific [place] 1.015 (1.005-1.035) Urine Protein Negative (NEGATIVE) Urine Glucose (UA) Negative (NEGATIVE) Urine Ketones Negative (NEGATIVE) Urine Occult Blood Negative (NEGATIVE) Urine Nitrite Negative (NEGATIVE) Urine Bilirubin Negative (NEGATIVE) Urine Urobilinogen Normal MG/DL (0.0-1.0) Urine Leukocyte Esterase 2+ (NEGATIVE) H Urine RBC 0-2 /HPF (0 - 2) Urine WBC 2-4 /HPF (0 - 2) Urine Squamous Epithelial Cells Few /LPF (NONE/OCC) Urine Bacteria Few /HPF (NONE) Urine Opiates Screen Positive (NEGATIVE) H Urine Barbiturates Screen Negative (NEGATIVE) Phencyclidine (PCP) Screen Negative (NEGATIVE) Urine Amphetamines Screen Negative (NEGATIVE) Urine Benzodiazepines Screen Positive (NEGATIVE) H Urine Cocaine Screen Negative (NEGATIVE) Urine Marijuana (THC) Screen Negative (NEGATIVE) General Appearance: well appearing, no apparent distress, alert Head: normocephalic EENT: PERRL/EOMI, normal ENT inspection Neck: supple Respiratory: normal breath sounds, no respiratory distress Cardiovascular: normal rate Gastrointestinal: normal inspection, non tender, soft, normal bowel sounds Rectal: deferred Genitourinary: no CVA tenderness Musculoskeletal: back normal Neurologic: normal inspection, alert, oriented x3, responsive Psychiatric: normal inspection, judgement/insight normal, memory normal Skin: normal color, no rash, warm/dry Lymphatic: normal inspection, no adenopathy Current Medications Current Medications Medications (Trade) Dose Ordered Sig/Payam Route PRN Reason Start Time Stop Time Status Last Admin Dose Admin Acetaminophen (Tylenol) 650 mg Q4H PRN ORAL fever 01/06/17 06:45 02/05/17 06:44 Al Hydroxide/Mg Hydroxide (Mylanta II) 30 ml Q6H PRN ORAL dyspepsia 01/06/17 06:45 02/05/17 06:44 Dextrose (Dextrose 50%) STAT PRN IV Hypoglycemia 01/06/17 06:45 02/05/17 06:44 Diazepam (Valium) 10 mg Q4H PRN ORAL anxiety 01/06/17 06:45 01/13/17 06:44 Fluoxetine HCl (PROzac) 20 mg DAILY ORAL 01/06/17 09:00 02/05/17 08:59 01/06/17 09:54 Lorazepam (Ativan 2mg/ml 1ml) 0.5 mg Q4H PRN IV For Anxiety 01/06/17 06:45 01/13/17 06:44 Morphine Sulfate (Morphine Sulfate) 1 mg EVERY 4 HOURS PRN IVP For Pain 01/06/17 06:45 01/13/17 06:44 01/06/17 13:34 Ondansetron HCl (Zofran) 4 mg Q6H PRN IVP Nausea & Vomiting 01/06/17 06:45 02/05/17 06:44 Polyethylene Glycol (Miralax) 17 gm HSPRN PRN ORAL Constipation 01/06/17 06:45 02/05/17 06:44 Ranitidine HCl (Zantac) 150 mg BEDTIME ORAL 01/06/17 21:00 02/05/17 20:59 Thiamine HCl (Vitamin B1) 100 mg DAILY ORAL 01/07/17 09:00 02/06/17 08:59 Zolpidem Tartrate (Ambien) 5 mg HSPRN PRN ORAL Insomnia 01/06/17 06:45 01/13/17 06:44 GI: Plan Problems: (1) Transaminitis (2) GERD (gastroesophageal reflux disease) (3) Alcoholic hepatitis (4) Fatty liver (5) Abdominal pain Plan hepatitis panel >> negative LUPE negative lipase unremarkable symptomatic treatment at this time anemia work up >> ordered B12 / folate levels okay for low sodium diet after imaging studies pain mgmt pentoxifylline monitor H&H, transfuse prn H2B repeat LFTs avoid alcohol fu labs Discussed with Dr. Jones. Thank you for referringt his patient, we will follow. Nayeli Box N.P. Jan 06, 2017 14:46
[2017-01-06 16:00] VITALS: BP 150/94
[2017-01-06] MEDS ORDERED: Morphine Sulfate 4mg/ml Inj IVP PRN (16:30)
--- NOTE | 2017-01-06 16:42 | Diagnostic Imaging Report ---
Indication:Abdominal pain Technique: Grayscale and duplex Doppler imaging of the abdomen performed. Comparison: 12/15/16 Findings: Liver is 18 cm to 19 cm. Liver is echogenic. These findings were noted previously as well. CBD measures approximately 7 mm. The demonstrated part of the pancreas, gallbladder, aorta and IVC, both kidneys, spleen appear unremarkable. There is no biliary ductal dilatation identified. Doppler evaluation of the main portal vein shows patency. There is no ascites. No hydronephrosis seen. Impression: Hepatomegaly with fatty infiltration. No change from the prior study
--- NOTE | 2017-01-06 17:28 | Infectious Diseases Prog Note ---
Assessment/Plan Problems: (1) lethargy, r/o toxic-methabolic or hepathic encephalopathy Assessment & Plan: check ammonia level, will order blood culture to rule out sepsis, monitor WBC (2) Transaminitis Assessment & Plan: SUSPECT DUE TO FATTY LIVER AND ALCHOL ABUSE, WILL ORDER CMV pcr, AND MONOSPOT TO RULE OUT INFECTIOUS ETIOLOGY (3) Generalized weakness Assessment & Plan: CONSULT pt/ot (4) Fatty liver Assessment & Plan: recommend diet and exercise Subjective Allergies: Coded Allergies: IBUPROFEN (Verified Allergy, Severe, Anaphylaxis, 06/12/16) swollen face and lips NSAIDS (NON-STEROIDAL ANTI-INFLAMMA (Verified Allergy, Severe, Anaphylaxis , 06/12/16) swollen face and lips Uncoded Allergies: NSAIDS include Ibuprofen (Adverse Reaction, Severe, Anaphylaxis, 06/11/16) Swollen face and lip Objective Vital Signs Last 24 Hour Vital Signs Date Time Temp Pulse Resp B/P (MAP) Pulse Ox O2 Delivery O2 Flow Rate FiO2 01/06/17 16:00 98.4 69 20 150/94 98 Room Air 01/06/17 12:00 98.0 89 20 138/64 100 Room Air 01/06/17 00:12 98.1 65 18 155/86 95 Room Air 01/05/17 21:20 98.1 65 18 155/86 95 Room Air 01/05/17 19:11 98.1 75 16 136/65 95 Room Air Height (Feet): 5 Height (Inches): 8.00 Weight (Pounds): 199 Laboratory Tests Test 01/05/17 19:49 01/05/17 20:21 White Blood Count 5.0 K/UL (4.8-10.8) Red Blood Count 3.03 M/UL (4.20-5.40) L Hemoglobin 11.1 G/DL (12.0-16.0) L Hematocrit 33.9 % (37.0-47.0) L Mean Corpuscular Volume 112 FL (80-99) H Mean Corpuscular Hemoglobin 36.7 PG (27.0-31.0) H Mean Corpuscular Hemoglobin Concent 32.9 G/DL (32.0-36.0) Red Cell Distribution Width 16.8 % (11.6-14.8) H Platelet Count 318 K/UL (150-450) Mean Platelet Volume 5.4 FL (6.5-10.1) L Neutrophils (%) (Auto) % (45.0-75.0) Lymphocytes (%) (Auto) % (20.0-45.0) Monocytes (%) (Auto) % (1.0-10.0) Eosinophils (%) (Auto) % (0.0-3.0) Basophils (%) (Auto) % (0.0-2.0) Differential Total Cells Counted 100 Neutrophils % (Manual) 36 % (45-75) L Lymphocytes % (Manual) 47 % (20-45) H Monocytes % (Manual) 9 % (1-10) Eosinophils % (Manual) 4 % (0-3) H Basophils % (Manual) 1 % (0-2) Band Neutrophils 3 % (0-8) Platelet Estimate Adequate Platelet Morphology Normal Hypochromasia 1+ Anisocytosis 1+ Macrocytosis 2+ Sodium Level 141 mEQ/L (135-145) Potassium Level 3.6 mEQ/L (3.4-4.9) Chloride Level 105 mEQ/L (98-107) Carbon Dioxide Level 26 mEQ/L (20-30) Anion Gap 10 (5-15) Blood Urea Nitrogen 7 mg/dL (7-23) Creatinine 0.5 mg/dL (0.5-0.9) Estimat Glomerular Filtration Rate > 60 mL/min (>60) Glucose Level 84 mg/dL (74-106) Calcium Level 8.6 mg/dL (8.6-10.2) Total Bilirubin 0.4 mg/dL (0.0-1.2) Aspartate Amino Transf (AST/SGOT) 93 U/L (5-40) H Alanine Aminotransferase (ALT/SGPT) 37 U/L (3-33) H Alkaline Phosphatase 124 U/L (35-104) H Total Protein 6.7 g/dL (6.6-8.7) Albumin 2.7 g/dL (3.5-5.2) L Globulin 4.0 g/dL Albumin/Globulin Ratio 0.6 (1.0-2.7) L Lipase 24 U/L (< 60) Urine Color Pale yellow Urine Appearance Clear Urine pH 6 (4.5-8.0) Urine Specific [place] 1.015 (1.005-1.035) Urine Protein Negative (NEGATIVE) Urine Glucose (UA) Negative (NEGATIVE) Urine Ketones Negative (NEGATIVE) Urine Occult Blood Negative (NEGATIVE) Urine Nitrite Negative (NEGATIVE) Urine Bilirubin Negative (NEGATIVE) Urine Urobilinogen Normal MG/DL (0.0-1.0) Urine Leukocyte Esterase 2+ (NEGATIVE) H Urine RBC 0-2 /HPF (0 - 2) Urine WBC 2-4 /HPF (0 - 2) Urine Squamous Epithelial Cells Few /LPF (NONE/OCC) Urine Bacteria Few /HPF (NONE) Urine Opiates Screen Positive (NEGATIVE) H Urine Barbiturates Screen Negative (NEGATIVE) Phencyclidine (PCP) Screen Negative (NEGATIVE) Urine Amphetamines Screen Negative (NEGATIVE) Urine Benzodiazepines Screen Positive (NEGATIVE) H Urine Cocaine Screen Negative (NEGATIVE) Urine Marijuana (THC) Screen Negative (NEGATIVE) Current Medications Medications (Trade) Dose Ordered Sig/Payam Route PRN Reason Start Time Stop Time Status Last Admin Dose Admin Acetaminophen (Tylenol) 650 mg Q4H PRN ORAL fever 01/06/17 06:45 02/05/17 06:44 Al Hydroxide/Mg Hydroxide (Mylanta II) 30 ml Q6H PRN ORAL dyspepsia 01/06/17 06:45 02/05/17 06:44 Dextrose (Dextrose 50%) STAT PRN IV Hypoglycemia 01/06/17 06:45 02/05/17 06:44 Diazepam (Valium) 10 mg Q4H PRN ORAL anxiety 01/06/17 06:45 01/13/17 06:44 Fluoxetine HCl (PROzac) 20 mg DAILY ORAL 01/06/17 09:00 02/05/17 08:59 01/06/17 09:54 Gabapentin (Neurontin) 300 mg THREE TIMES A DAY ORAL 01/06/17 18:00 02/05/17 17:59 Hydroxyzine HCl (Vistaril) 50 mg BID ORAL 01/06/17 18:00 02/05/17 17:59 Lorazepam (Ativan 2mg/ml 1ml) 0.5 mg Q4H PRN IV For Anxiety 01/06/17 06:45 01/13/17 06:44 Morphine Sulfate (Morphine Sulfate) 1 mg EVERY 4 HOURS PRN IVP For Pain 01/06/17 06:45 01/13/17 06:44 01/06/17 13:34 Morphine Sulfate (Morphine Sulfate) 2 mg Q4H PRN IM Moderate Pain (Pain Scale 4-6) 01/06/17 16:30 01/13/17 16:29 Morphine Sulfate (Morphine Sulfate) 4 mg Q4H PRN IVP Severe Pain (Pain Scale 7-10) 01/06/17 16:30 01/13/17 16:29 Ondansetron HCl (Zofran) 4 mg Q6H PRN IVP Nausea & Vomiting 01/06/17 06:45 02/05/17 06:44 Polyethylene Glycol (Miralax) 17 gm HSPRN PRN ORAL Constipation 01/06/17 06:45 02/05/17 06:44 Ranitidine HCl (Zantac) 150 mg BEDTIME ORAL 01/06/17 21:00 02/05/17 20:59 Thiamine HCl (Vitamin B1) 100 mg DAILY ORAL 01/07/17 09:00 02/06/17 08:59 Zolpidem Tartrate (Ambien) 5 mg HSPRN PRN ORAL Insomnia 01/06/17 06:45 01/13/17 06:44 Brandan Rubin M.D. Jan 06, 2017 17:28
[2017-01-06 20:00] VITALS: BP 118/77
--- NOTE | 2017-01-07 00:15 | History and Physical Report ---
DATE OF ADMISSION: 01/05/2017 TIME SEEN: At 2 p.m. CONSULTANTS: 1. Stewart Art M.D. 2. Bushra Lai M.D. 3. Arsh Nolasco M.D. 4. Santos Jones M.D. 5. Biju Lee M.D. CHIEF COMPLAINT: Acute abdominal pain, shock, anxiety, and weakness. BRIEF HISTORY: This is a 41-year-old female from [facility], presented with above-mentioned diagnosis. Blood pressure went down to the 70s systolic. The patient became very weak. The patient came to [facility], diagnosed above, admitted to medical floor for further treatment. Currently, she complains of general pain, hunger, and abdominal pain. No other complaints. REVIEW OF SYSTEMS: No chest pain/short of breath. She has had nausea. No vomiting or diarrhea. PAST MEDICAL HISTORY: Include pancreatitis, depression, and anxiety. PAST SURGICAL HISTORY: Hidradenitis. MEDICATIONS: Include Zantac, Prozac, Valium, Tylenol, morphine, MiraLax, Zofran, Ambien, Ativan, and Mylanta. ALLERGIES: NSAID, ibuprofen. SOCIAL HISTORY: No smoking. No alcohol. No intravenous drug use. FAMILY HISTORY: Noncontributory. PHYSICAL EXAMINATION: GENERAL: Calm, slightly anxious in bed, oriented x3, in no acute distress. VITAL SIGNS: Temperature is 98 degrees, pulse 89, respirations 20, and blood pressure 130/64. CARDIOVASCULAR: No murmur. LUNGS: Poor exchange. ABDOMEN: Bowel sound positive. Slightly tender. No guarding. No rigidity. No rebound. Soft. EXTREMITIES: No cyanosis, clubbing, or edema. NEUROLOGIC: The patient moves all extremities, but slightly weak. LABORATORY DATA: Show hemoglobin 11.1, otherwise CBC is normal. BMP shows AST 93, ALT 37, alkaline phosphatase 124. Albumin 2.7. Lipase 24. Urine toxicology, positive for benzo and opiates. Urinalysis 2+ leukocyte esterase. ASSESSMENT: 1. History of acute abdominal pain. 2. Urinary tract infection. 3. Shock. 4. Anemia. 5. Weakness. 6. Anxiety. 7. Depression. PLAN: 1. Continue premedications. 2. OT, PT and dietary evaluation. 3. CBC and BMP in the morning. 4. Resume home medications. 5. Antibiotics per Infectious Diseases. 6. Blood pressure control. 7. Dietary followup. Dr. Art, Dr. Lai, Dr. Nolasco, Dr. Jones, and Dr. Lee and me to consult. I will continue to follow this patient medically. Franky Olvera D.O. DR: Cristela JOB#: [id number] CC:
[2017-01-07 04:00] VITALS: BP 125/77
[2017-01-07] MEDS: Morphine Sulfate 2mg/ml Inj IM PRN ×4 (04:37→18:07)
--- NOTE | 2017-01-07 07:36 | Pulmonology Progress Note ---
Assessment/Plan Assessment/Plan ASSESSMENT abdominal pain transaminitis fatty liver alcoholic hepatitis anemia anxiety disorder PLAN OF CARE MS floor pain management family counselor on abstinence from ETOH tox screen + opiates, benzo continue with Thiamine trend LFT last abdominal US was negative for gallstones or dilated ducts, and revealed enlarged fatty liver, abdominal US revealed Hepatomegaly with fatty infiltration, no change from previous study . hepatitis panel was recently checked ( in November) -negative GI follows BP management monitor HH, anxiolytic prn a/emetic prn GI prophylaxis case discussed and evaluated by supervising physician Subjective Allergies: Coded Allergies: IBUPROFEN (Verified Allergy, Severe, Anaphylaxis, 06/12/16) swollen face and lips NSAIDS (NON-STEROIDAL ANTI-INFLAMMA (Verified Allergy, Severe, Anaphylaxis , 06/12/16) swollen face and lips Uncoded Allergies: NSAIDS include Ibuprofen (Adverse Reaction, Severe, Anaphylaxis, 06/11/16) Swollen face and lip Subjective did not eat breakfast, still with intermittent abdominal pain no n/v/diarrhea no fever, no leucocytosis Objective Last 24 Hour Vital Signs Date Time Temp Pulse Resp B/P (MAP) Pulse Ox O2 Delivery O2 Flow Rate FiO2 01/07/17 04:00 97.4 77 18 125/77 98 Room Air 01/07/17 00:00 98.0 66 18 97 Room Air 01/06/17 20:00 97.7 93 18 118/77 95 Room Air 01/06/17 16:00 98.4 69 20 150/94 98 Room Air 01/06/17 12:00 98.0 89 20 138/64 100 Room Air Objective General: NAD, awake, alert, obese AA female HEENT: normocephalic, atraumatic, anicteric Neck: non-tender, normal alignment Respiratory/Chest: lungs clear with moderate air entry Cardiovascular/Chest: normal peripheral pulses, normal rate, regular rhythm Abdomen: normal bowel sounds, non tender, obese, soft, no guarding, no rebound Extremities: normal range of motion, non-tender, no calf tenderness Skin Exam: warm/dry Neurologic: no motor/sensory deficits, alert, responsive Musculoskeletal: normal muscle bulk Microbiology Date/Time Source Procedure Growth Status 01/05/17 21:11 Nasal Nares MRSA Culture - Final NO METHICILLIN RESISTANT STAPH AUREUS... Complete Laboratory Tests 01/07/17 05:50: White Blood Count [Pending], Red Blood Count [Pending], Hemoglobin [Pending], Hematocrit [Pending], Mean Corpuscular Volume [Pending], Mean Corpuscular Hemoglobin [Pending], Mean Corpuscular Hemoglobin Concent [Pending], Red Cell Distribution Width [Pending], Platelet Count [Pending], Mean Platelet Volume [ Pending], Neutrophils (%) (Auto) [Pending], Lymphocytes (%) (Auto) [Pending], Monocytes (%) (Auto) [Pending], Eosinophils (%) (Auto) [Pending], Basophils (%) (Auto) [Pending], Sodium Level [Pending], Potassium Level [Pending], Chloride Level [Pending], Carbon Dioxide Level [Pending], Blood Urea Nitrogen [Pending], Creatinine [Pending], Estimat Glomerular Filtration Rate [Pending], Glucose Level [Pending], Calcium Level [Pending], Total Bilirubin [Pending], Aspartate Amino Transf (AST/SGOT) [Pending], Alanine Aminotransferase (ALT/SGPT) [Pending] , Alkaline Phosphatase [Pending], Total Protein [Pending], Albumin [Pending], Globulin [Pending], Triglycerides Level [Pending], Cholesterol Level [Pending], LDL Cholesterol [Pending], HDL Cholesterol [Pending], Cholesterol/HDL Ratio [ Pending], Vitamin B12 Level [Pending], Folate [Pending], Thyroid Stimulating Hormone (TSH) [Pending] Current Medications Medications (Trade) Dose Ordered Sig/Payam Route PRN Reason Start Time Stop Time Status Last Admin Dose Admin Acetaminophen (Tylenol) 650 mg Q4H PRN ORAL fever 01/06/17 06:45 02/05/17 06:44 Al Hydroxide/Mg Hydroxide (Mylanta II) 30 ml Q6H PRN ORAL dyspepsia 01/06/17 06:45 02/05/17 06:44 Dextrose (Dextrose 50%) STAT PRN IV Hypoglycemia 01/06/17 06:45 02/05/17 06:44 Diazepam (Valium) 10 mg Q4H PRN ORAL anxiety 01/06/17 06:45 01/13/17 06:44 01/07/17 06:27 Fluoxetine HCl (PROzac) 20 mg DAILY ORAL 01/06/17 09:00 02/05/17 08:59 01/06/17 09:54 Gabapentin (Neurontin) 300 mg THREE TIMES A DAY ORAL 01/06/17 18:00 02/05/17 17:59 01/06/17 18:16 Hydroxyzine HCl (Atarax) 50 mg BID ORAL 01/07/17 09:00 02/06/17 08:59 Lorazepam (Ativan 2mg/ml 1ml) 0.5 mg Q4H PRN IV For Anxiety 01/06/17 06:45 01/13/17 06:44 Morphine Sulfate (Morphine Sulfate) 1 mg EVERY 4 HOURS PRN IVP For Pain 01/06/17 06:45 01/13/17 06:44 01/06/17 13:34 Morphine Sulfate (Morphine Sulfate) 2 mg Q4H PRN IM Moderate Pain (Pain Scale 4-6) 01/06/17 16:30 01/13/17 16:29 01/07/17 04:37 Ondansetron HCl (Zofran) 4 mg Q6H PRN IVP Nausea & Vomiting 01/06/17 06:45 02/05/17 06:44 01/06/17 18:51 Polyethylene Glycol (Miralax) 17 gm HSPRN PRN ORAL Constipation 01/06/17 06:45 02/05/17 06:44 Ranitidine HCl (Zantac) 150 mg BEDTIME ORAL 01/06/17 21:00 02/05/17 20:59 01/06/17 22:49 Thiamine HCl (Vitamin B1) 100 mg DAILY ORAL 01/07/17 09:00 02/06/17 08:59 Zolpidem Tartrate (Ambien) 5 mg HSPRN PRN ORAL Insomnia 01/06/17 06:45 01/13/17 06:44 Juhi Garcia NP (Vanchtein) Jan 07, 2017 07:36
[2017-01-07 07:39] LABS: MEAN CORPUSCULAR HEMOGLOBIN 36.3 PG (27.0-31.0); MEAN CORPUSCULAR HGB CONC 32.1 G/DL (32.0-36.0); MEAN CORPUSCULAR VOLUME 113 FL (80-99); MEAN PLATELET VOLUME 5.3 FL (6.5-10.1); PLATELET COUNT 276 K/UL (150-450); RED BLOOD COUNT 3.09 M/UL (4.20-5.40); RED CELL DISTRIBUTION WIDTH 16.7 % (11.6-14.8); WHITE BLOOD COUNT 4.2 K/UL (4.8-10.8)
[2017-01-07 07:56] LABS: ALANINE AMINOTRANSFERASE 33 U/L (3-33); ALBUMIN/GLOBULIN RATIO 0.6 (1.0-2.7); ANION GAP 12 (5-15); ASPARTATE AMINO TRANSFERASE 91 U/L (5-40); CALCIUM 8.5 mg/dL (8.6-10.2); CARBON DIOXIDE 25 mEQ/L (20-30); CHLORIDE 106 mEQ/L (98-107); CHOLESTEROL 128 mg/dL (< 200); CREATININE 0.6 mg/dL (0.5-0.9); GLOMERULAR FILTRATION RATE > 60 mL/min (>60); HEMOLYSIS 6; LDL CHOLESTEROL (CALC.) 64 mg/dL (60-99); POTASSIUM 3.4 mEQ/L (3.4-4.9); SODIUM 143 mEQ/L (135-145)
[2017-01-07 08:00] VITALS: BP 129/81
[2017-01-07] MEDS: Thiamine 100mg tab ORAL SCH (08:42)
[2017-01-07] MEDS: HydrOXYzine 50mg cap ORAL SCH ×2 (08:42→18:07)
--- NOTE | 2017-01-07 08:55 | Diagnostic Imaging Report ---
Indication: Shortness of breath Technique: XRAY CHEST 1 V Comparison: 06/11/2016. Findings: The cardiomediastinal silhouette is normal. The lungs are clear. There is no evidence of pleural fluid. The bones are unremarkable. Impression: Normal chest.
--- NOTE | 2017-01-07 09:14 | General Progress Note ---
Assessment/Plan Problem List: (1) Abdominal pain ICD Codes: R10.9 - Unspecified abdominal pain SNOMED: 39544768 Qualifiers: Qualified Codes: R10.84 - Generalized abdominal pain (2) Anxiety ICD Codes: F41.9 - Anxiety disorder, unspecified SNOMED: 68020882 (3) Hydradenitis ICD Codes: L73.2 - Hidradenitis suppurativa SNOMED: 83051697 (4) Acute pancreatitis ICD Codes: K85.90 - Acute pancreatitis without necrosis or infection, unspecified SNOMED: 866318001 (5) Generalized weakness ICD Codes: R53.1 - Weakness SNOMED: 47084959 Status: stable, progressing, tolerating diet Assessment/Plan ot pt diet abx pain control cbc bmp am Subjective Constitutional: Reports: weakness Allergies: Coded Allergies: IBUPROFEN (Verified Allergy, Severe, Anaphylaxis, 06/12/16) swollen face and lips NSAIDS (NON-STEROIDAL ANTI-INFLAMMA (Verified Allergy, Severe, Anaphylaxis , 06/12/16) swollen face and lips Uncoded Allergies: NSAIDS include Ibuprofen (Adverse Reaction, Severe, Anaphylaxis, 06/11/16) Swollen face and lip All Systems: reviewed and negative except above Subjective sl gen pain eating ok Objective Last 24 Hour Vital Signs Date Time Temp Pulse Resp B/P (MAP) Pulse Ox O2 Delivery O2 Flow Rate FiO2 01/07/17 08:00 97.7 74 18 129/81 97 Room Air 01/07/17 04:00 97.4 77 18 125/77 98 Room Air 01/07/17 00:00 98.0 66 18 97 Room Air 01/06/17 20:00 97.7 93 18 118/77 95 Room Air 01/06/17 16:00 98.4 69 20 150/94 98 Room Air 01/06/17 12:00 98.0 89 20 138/64 100 Room Air Laboratory Tests 01/07/17 05:50: White Blood Count 4.2L, Red Blood Count 3.09L, Hemoglobin 11.2L, Hematocrit 35.0L, Mean Corpuscular Volume 113H, Mean Corpuscular Hemoglobin 36.3H, Mean Corpuscular Hemoglobin Concent 32.1, Red Cell Distribution Width 16.7H, Platelet Count 276, Mean Platelet Volume 5.3L, Neutrophils (%) (Auto) , Lymphocytes (%) (Auto) , Monocytes (%) (Auto) , Eosinophils (%) (Auto) , Basophils (%) (Auto) , Neutrophils % (Manual) [Pending], Lymphocytes % (Manual) [Pending], Platelet Estimate [Pending], Platelet Morphology [Pending], Sodium Level 143, Potassium Level 3.4, Chloride Level 106, Carbon Dioxide Level 25, Anion Gap 12, Blood Urea Nitrogen 6L, Creatinine 0.6, Estimat Glomerular Filtration Rate > 60, Glucose Level 78, Calcium Level 8.5L, Total Bilirubin 0.4 , Aspartate Amino Transf (AST/SGOT) 91H, Alanine Aminotransferase (ALT/SGPT) 33 , Alkaline Phosphatase 115H, Total Protein 6.0L, Albumin 2.4L, Globulin 3.6, Albumin/Globulin Ratio 0.6L, Triglycerides Level 106, Cholesterol Level 128, LDL Cholesterol 64, HDL Cholesterol 43, Cholesterol/HDL Ratio 3.0L, Vitamin B12 Level 781, Folate [Pending], Thyroid Stimulating Hormone (TSH) 2.910 Height (Feet): 5 Height (Inches): 8.00 Weight (Pounds): 199 General Appearance: lethargic EENT: normal ENT inspection Neck: normal alignment Cardiovascular: normal peripheral pulses, normal rate, regular rhythm Respiratory/Chest: chest wall non-tender, lungs clear, normal breath sounds Abdomen: normal bowel sounds, non tender, soft Extremities: normal inspection Edema: no edema noted Arm (L), no edema noted Arm (R), no edema noted Leg (L), no edema noted Leg (R), no edema noted Pedal (L), no edema noted Pedal (R), no edema noted Generalized Neurologic: responsive, motor weakness Skin: normal pigmentation, warm/dry PIETER GAUTHIER Jan 07, 2017 09:14
[2017-01-07 10:03] LABS: BAND NEUTROPHILS % (MANUAL) 1 % (0-8); EOSINOPHILS % (MANUAL) 5 % (0-3); LYMPHOCYTES % (MANUAL) 61 % (20-45); NEUTROPHILS % (MANUAL) 30 % (45-75); TOTAL CELLS COUNTED 100
[2017-01-07 10:04] LABS: ANISOCYTOSIS 1+; BASOPHILS % (MANUAL) 0 % (0-2); MACROCYTES 1+; PLATELET ESTIMATE ADEQUATE; PLATELET MORPHOLOGY NORMAL
[2017-01-07 12:00] VITALS: BP 106/67
[2017-01-07 16:00] VITALS: BP 112/74
--- NOTE | 2017-01-07 16:30 | Infectious Diseases Prog Note ---
Assessment/Plan Problems: (1) lethargy, r/o toxic-methabolic or hepathic encephalopathy Assessment & Plan: check ammonia level, await blood culture to rule out sepsis , monitor WBC (2) Transaminitis Assessment & Plan: SUSPECT DUE TO FATTY LIVER AND ALCHOL ABUSE, WILL ORDER CMV pcr, AND MONOSPOT TO RULE OUT INFECTIOUS ETIOLOGY (3) Generalized weakness Assessment & Plan: CONSULT pt/ot (4) Fatty liver Assessment & Plan: recommend diet and exercise (5) Hidradenitis suppurativa Assessment & Plan: was treated with antibiotics and now looks much better, continue local wound care, apply local nystatin powder as needed Subjective ROS Limited/Unobtainable: Yes Allergies: Coded Allergies: IBUPROFEN (Verified Allergy, Severe, Anaphylaxis, 06/12/16) swollen face and lips NSAIDS (NON-STEROIDAL ANTI-INFLAMMA (Verified Allergy, Severe, Anaphylaxis , 06/12/16) swollen face and lips Uncoded Allergies: NSAIDS include Ibuprofen (Adverse Reaction, Severe, Anaphylaxis, 06/11/16) Swollen face and lip Objective Vital Signs Last 24 Hour Vital Signs Date Time Temp Pulse Resp B/P (MAP) Pulse Ox O2 Delivery O2 Flow Rate FiO2 01/07/17 16:00 97.9 86 19 112/74 95 Room Air 01/07/17 12:00 98.2 87 18 106/67 96 Room Air 01/07/17 08:00 97.7 74 18 129/81 97 Room Air 01/07/17 04:00 97.4 77 18 125/77 98 Room Air 01/07/17 00:00 98.0 66 18 97 Room Air 01/06/17 20:00 97.7 93 18 118/77 95 Room Air Height (Feet): 5 Height (Inches): 8.00 Weight (Pounds): 199 General Appearance: WD/WN, no acute distress HEENT: normocephalic, atraumatic, anicteric Respiratory/Chest: chest wall non-tender, lungs clear, normal breath sounds Cardiovascular: normal peripheral pulses, normal rate, regular rhythm Abdomen: normal bowel sounds, soft, non tender, no organomegaly, non distended Extremities: no cyanosis, no clubbing Skin: ulcers Microbiology Date/Time Source Procedure Growth Status 01/05/17 21:11 Nasal Nares MRSA Culture - Final NO METHICILLIN RESISTANT STAPH AUREUS... Complete Laboratory Tests Test 01/07/17 05:50 White Blood Count 4.2 K/UL (4.8-10.8) L Red Blood Count 3.09 M/UL (4.20-5.40) L Hemoglobin 11.2 G/DL (12.0-16.0) L Hematocrit 35.0 % (37.0-47.0) L Mean Corpuscular Volume 113 FL (80-99) H Mean Corpuscular Hemoglobin 36.3 PG (27.0-31.0) H Mean Corpuscular Hemoglobin Concent 32.1 G/DL (32.0-36.0) Red Cell Distribution Width 16.7 % (11.6-14.8) H Platelet Count 276 K/UL (150-450) Mean Platelet Volume 5.3 FL (6.5-10.1) L Neutrophils (%) (Auto) % (45.0-75.0) Lymphocytes (%) (Auto) % (20.0-45.0) Monocytes (%) (Auto) % (1.0-10.0) Eosinophils (%) (Auto) % (0.0-3.0) Basophils (%) (Auto) % (0.0-2.0) Differential Total Cells Counted 100 Neutrophils % (Manual) 30 % (45-75) L Lymphocytes % (Manual) 61 % (20-45) H Monocytes % (Manual) 3 % (1-10) Eosinophils % (Manual) 5 % (0-3) H Basophils % (Manual) 0 % (0-2) Band Neutrophils 1 % (0-8) Platelet Estimate Adequate Platelet Morphology Normal Anisocytosis 1+ Macrocytosis 1+ Sodium Level 143 mEQ/L (135-145) Potassium Level 3.4 mEQ/L (3.4-4.9) Chloride Level 106 mEQ/L (98-107) Carbon Dioxide Level 25 mEQ/L (20-30) Anion Gap 12 (5-15) Blood Urea Nitrogen 6 mg/dL (7-23) L Creatinine 0.6 mg/dL (0.5-0.9) Estimat Glomerular Filtration Rate > 60 mL/min (>60) Glucose Level 78 mg/dL (74-106) Calcium Level 8.5 mg/dL (8.6-10.2) L Total Bilirubin 0.4 mg/dL (0.0-1.2) Aspartate Amino Transf (AST/SGOT) 91 U/L (5-40) H Alanine Aminotransferase (ALT/SGPT) 33 U/L (3-33) Alkaline Phosphatase 115 U/L (35-104) H Total Protein 6.0 g/dL (6.6-8.7) L Albumin 2.4 g/dL (3.5-5.2) L Globulin 3.6 g/dL Albumin/Globulin Ratio 0.6 (1.0-2.7) L Triglycerides Level 106 mg/dL (< 150) Cholesterol Level 128 mg/dL (< 200) LDL Cholesterol 64 mg/dL (60-99) HDL Cholesterol 43 mg/dL (> 60) Cholesterol/HDL Ratio 3.0 (3.3-4.4) L Vitamin B12 Level 781 pg/mL (211-946) Folate Pending Thyroid Stimulating Hormone (TSH) 2.910 uIU/mL (0.300-4.500) Current Medications Medications (Trade) Dose Ordered Sig/Payam Route PRN Reason Start Time Stop Time Status Last Admin Dose Admin Acetaminophen (Tylenol) 650 mg Q4H PRN ORAL fever 01/06/17 06:45 02/05/17 06:44 Al Hydroxide/Mg Hydroxide (Mylanta II) 30 ml Q6H PRN ORAL dyspepsia 01/06/17 06:45 02/05/17 06:44 Dextrose (Dextrose 50%) STAT PRN IV Hypoglycemia 01/06/17 06:45 02/05/17 06:44 Diazepam (Valium) 10 mg Q4H PRN ORAL anxiety 01/06/17 06:45 01/13/17 06:44 01/07/17 10:31 Fluoxetine HCl (PROzac) 20 mg DAILY ORAL 01/06/17 09:00 02/05/17 08:59 01/06/17 09:54 Gabapentin (Neurontin) 300 mg THREE TIMES A DAY ORAL 01/06/17 18:00 02/05/17 17:59 01/06/17 18:16 Hydroxyzine HCl (Atarax) 50 mg BID ORAL 01/07/17 09:00 02/06/17 08:59 01/07/17 08:42 Lorazepam (Ativan 2mg/ml 1ml) 0.5 mg Q4H PRN IV For Anxiety 01/06/17 06:45 01/13/17 06:44 Morphine Sulfate (Morphine Sulfate) 1 mg EVERY 4 HOURS PRN IVP For Pain 01/06/17 06:45 01/13/17 06:44 01/06/17 13:34 Morphine Sulfate (Morphine Sulfate) 2 mg Q4H PRN IM Moderate Pain (Pain Scale 4-6) 01/06/17 16:30 01/13/17 16:29 01/07/17 14:10 Ondansetron HCl (Zofran) 4 mg Q6H PRN IVP Nausea & Vomiting 01/06/17 06:45 02/05/17 06:44 01/07/17 09:18 Polyethylene Glycol (Miralax) 17 gm HSPRN PRN ORAL Constipation 01/06/17 06:45 02/05/17 06:44 Ranitidine HCl (Zantac) 150 mg BEDTIME ORAL 01/06/17 21:00 02/05/17 20:59 01/06/17 22:49 Thiamine HCl (Vitamin B1) 100 mg DAILY ORAL 01/07/17 09:00 02/06/17 08:59 01/07/17 08:42 Zolpidem Tartrate (Ambien) 5 mg HSPRN PRN ORAL Insomnia 01/06/17 06:45 01/13/17 06:44 Brandan Rubin M.D. Jan 07, 2017 16:30
--- NOTE | 2017-01-07 16:53 | General Progress Note ---
Assessment/Plan Assessment/Plan GI: Plan (1) Transaminitis (2) GERD (gastroesophageal reflux disease) (3) Alcoholic hepatitis (4) Fatty liver (5) Abdominal pain Plan hepatitis panel >> negative, possibly EtOH transaminitis LUPE negative lipase unremarkable symptomatic treatment at this time anemia work up >> ordered B12 / folate levels okay for low sodium diet after imaging studies pain mgmt pentoxifylline monitor H&H, transfuse prn H2B repeat LFTs avoid alcohol fu labs Subjective Allergies: Coded Allergies: IBUPROFEN (Verified Allergy, Severe, Anaphylaxis, 06/12/16) swollen face and lips NSAIDS (NON-STEROIDAL ANTI-INFLAMMA (Verified Allergy, Severe, Anaphylaxis , 06/12/16) swollen face and lips Uncoded Allergies: NSAIDS include Ibuprofen (Adverse Reaction, Severe, Anaphylaxis, 06/11/16) Swollen face and lip Subjective Feels OK c/o pain sedated with narcotics d/w RN Objective Last 24 Hour Vital Signs Date Time Temp Pulse Resp B/P (MAP) Pulse Ox O2 Delivery O2 Flow Rate FiO2 01/07/17 16:00 97.9 86 19 112/74 95 Room Air 01/07/17 12:00 98.2 87 18 106/67 96 Room Air 01/07/17 08:00 97.7 74 18 129/81 97 Room Air 01/07/17 04:00 97.4 77 18 125/77 98 Room Air 01/07/17 00:00 98.0 66 18 97 Room Air 01/06/17 20:00 97.7 93 18 118/77 95 Room Air Intake and Output 01/07/17 01/08/17 19:00 07:00 Intake Total 250 ml Balance 250 ml Intake Oral 250 ml # Voids 1 Laboratory Tests 01/07/17 05:50: White Blood Count 4.2L, Red Blood Count 3.09L, Hemoglobin 11.2L, Hematocrit 35.0L, Mean Corpuscular Volume 113H, Mean Corpuscular Hemoglobin 36.3H, Mean Corpuscular Hemoglobin Concent 32.1, Red Cell Distribution Width 16.7H, Platelet Count 276, Mean Platelet Volume 5.3L, Neutrophils (%) (Auto) , Lymphocytes (%) (Auto) , Monocytes (%) (Auto) , Eosinophils (%) (Auto) , Basophils (%) (Auto) , Differential Total Cells Counted 100, Neutrophils % ( Manual) 30L, Lymphocytes % (Manual) 61H, Monocytes % (Manual) 3, Eosinophils % ( Manual) 5H, Basophils % (Manual) 0, Band Neutrophils 1, Platelet Estimate Adequate, Platelet Morphology Normal, Anisocytosis 1+, Macrocytosis 1+, Sodium Level 143, Potassium Level 3.4, Chloride Level 106, Carbon Dioxide Level 25, Anion Gap 12, Blood Urea Nitrogen 6L, Creatinine 0.6, Estimat Glomerular Filtration Rate > 60, Glucose Level 78, Calcium Level 8.5L, Total Bilirubin 0.4 , Aspartate Amino Transf (AST/SGOT) 91H, Alanine Aminotransferase (ALT/SGPT) 33 , Alkaline Phosphatase 115H, Total Protein 6.0L, Albumin 2.4L, Globulin 3.6, Albumin/Globulin Ratio 0.6L, Triglycerides Level 106, Cholesterol Level 128, LDL Cholesterol 64, HDL Cholesterol 43, Cholesterol/HDL Ratio 3.0L, Vitamin B12 Level 781, Folate [Pending], Thyroid Stimulating Hormone (TSH) 2.910 Height (Feet): 5 Height (Inches): 8.00 Weight (Pounds): 199 Objective WDWN NCAT supple CTA Abd soft NT ND no edema non focal GARRETT ORLANDO Jan 07, 2017 16:53
[2017-01-07 20:00] VITALS: BP 106/58
--- NOTE | 2017-01-07 22:15 | Progress Note ---
DATE: 01/07/2017 SUBJECTIVE: The patient's mental status is unchanged since previous encounter. Continues to be dysphoric and anxious. Med seeking behavior. MENTAL STATUS EXAMINATION: The patient is alert and oriented to time, self, place, and situation. Mood is depressed. Affect is constricted. Congruent mood. Thought process is concrete. Thought content, there is no suicidal or homicidal ideations. ASSESSMENT: Depression. PLAN: 1. We will continue current medication. 2. Provide the patient with supportive therapy and reality orientation. Jeanne Swenson M.D. DR: Miquel JOB#: [id number] CC:
[2017-01-08 04:00] VITALS: BP 139/90
[2017-01-08] MEDS: Morphine Sulfate 2mg/ml Inj IVP PRN (04:26)
--- NOTE | 2017-01-08 05:45 | Progress Note ---
DATE: 01/07/2017 SUBJECTIVE: The patient is a 41-year-old female patient with generalized weakness. She continues to complain of anxiety. The plan for this patient is to continue treatment with Prozac and Neurontin to reduce anxiety and depression. Seen and assessed at bedside. DIAGNOSIS: Generalized anxiety disorder, rule out major depressive disorder. PLAN: Continue Prozac 20 mg a day and Neurontin 300 mg 3 times a day. Seen and assessed at bedside. Chart reviewed and discussed with staff. Biju Lee M.D. DR: ERIK JOB#: [id number] CC:
[2017-01-08 07:27] LABS: MEAN CORPUSCULAR HEMOGLOBIN 35.8 PG (27.0-31.0); MEAN CORPUSCULAR HGB CONC 31.7 G/DL (32.0-36.0); MEAN CORPUSCULAR VOLUME 113 FL (80-99); MEAN PLATELET VOLUME 5.4 FL (6.5-10.1); PLATELET COUNT 307 K/UL (150-450); RED BLOOD COUNT 2.82 M/UL (4.20-5.40); RED CELL DISTRIBUTION WIDTH 17.1 % (11.6-14.8); WHITE BLOOD COUNT 4.1 K/UL (4.8-10.8)
[2017-01-08 07:42] LABS: ANION GAP 9 (5-15); CALCIUM 8.4 mg/dL (8.6-10.2); CARBON DIOXIDE 27 mEQ/L (20-30); CHLORIDE 109 mEQ/L (98-107); CREATININE 0.6 mg/dL (0.5-0.9); GLOMERULAR FILTRATION RATE > 60 mL/min (>60); HEMOLYSIS 2; POTASSIUM 3.6 mEQ/L (3.4-4.9); SODIUM 145 mEQ/L (135-145)
[2017-01-08 08:05] VITALS: BP 113/78
--- NOTE | 2017-01-08 08:12 | General Progress Note ---
Assessment/Plan Problem List: (1) Abdominal pain ICD Codes: R10.9 - Unspecified abdominal pain SNOMED: 91651144 Qualifiers: Qualified Codes: R10.84 - Generalized abdominal pain (2) Anxiety ICD Codes: F41.9 - Anxiety disorder, unspecified SNOMED: 98289505 (3) Hydradenitis ICD Codes: L73.2 - Hidradenitis suppurativa SNOMED: 43443250 (4) Acute pancreatitis ICD Codes: K85.90 - Acute pancreatitis without necrosis or infection, unspecified SNOMED: 762510655 (5) Generalized weakness ICD Codes: R53.1 - Weakness SNOMED: 24099169 Status: progressing Assessment/Plan ot pt diet abx pain control cbc bmp am ltach eval Subjective Constitutional: Reports: weakness Allergies: Coded Allergies: IBUPROFEN (Verified Allergy, Severe, Anaphylaxis, 06/12/16) swollen face and lips NSAIDS (NON-STEROIDAL ANTI-INFLAMMA (Verified Allergy, Severe, Anaphylaxis , 06/12/16) swollen face and lips Uncoded Allergies: NSAIDS include Ibuprofen (Adverse Reaction, Severe, Anaphylaxis, 06/11/16) Swollen face and lip All Systems: reviewed and negative except above Subjective sl gen pain eating ok Objective Last 24 Hour Vital Signs Date Time Temp Pulse Resp B/P (MAP) Pulse Ox O2 Delivery O2 Flow Rate FiO2 01/08/17 04:57 98.0 01/08/17 04:00 98.0 81 18 139/90 94 Room Air 01/07/17 20:00 97.9 70 19 106/58 96 Room Air 01/07/17 16:00 97.9 86 19 112/74 95 Room Air 01/07/17 12:00 98.2 87 18 106/67 96 Room Air Laboratory Tests 01/08/17 06:45: White Blood Count 4.1L, Red Blood Count 2.82L, Hemoglobin 10.1L, Hematocrit 31.8L, Mean Corpuscular Volume 113H, Mean Corpuscular Hemoglobin 35.8H, Mean Corpuscular Hemoglobin Concent 31.7L, Red Cell Distribution Width 17.1H, Platelet Count 307, Mean Platelet Volume 5.4L, Neutrophils (%) (Auto) , Lymphocytes (%) (Auto) , Monocytes (%) (Auto) , Eosinophils (%) (Auto) , Basophils (%) (Auto) , Neutrophils % (Manual) [Pending], Lymphocytes % (Manual) [Pending], Platelet Estimate [Pending], Platelet Morphology [Pending], Sodium Level 145, Potassium Level 3.6, Chloride Level 109H, Carbon Dioxide Level 27, Anion Gap 9, Blood Urea Nitrogen 7, Creatinine 0.6, Estimat Glomerular Filtration Rate > 60, Glucose Level 78, Calcium Level 8.4L Height (Feet): 5 Height (Inches): 8.00 Weight (Pounds): 199 General Appearance: lethargic EENT: normal ENT inspection Neck: normal alignment Cardiovascular: normal peripheral pulses, normal rate, regular rhythm Respiratory/Chest: chest wall non-tender, lungs clear, normal breath sounds Abdomen: normal bowel sounds, non tender, soft Extremities: normal inspection Edema: no edema noted Arm (L), no edema noted Arm (R), no edema noted Leg (L), no edema noted Leg (R), no edema noted Pedal (L), no edema noted Pedal (R), no edema noted Generalized Neurologic: responsive, motor weakness Skin: normal pigmentation, warm/dry PIETER GAUTHIER Jan 08, 2017 08:12
[2017-01-08 08:35] LABS: ANISOCYTOSIS 1+; BAND NEUTROPHILS % (MANUAL) 0 % (0-8); BASOPHILS % (MANUAL) 0 % (0-2); EOSINOPHILS % (MANUAL) 2 % (0-3); HYPOCHROMASIA 1+; LYMPHOCYTES % (MANUAL) 59 % (20-45); MACROCYTES 1+; NEUTROPHILS % (MANUAL) 31 % (45-75); PLATELET ESTIMATE ADEQUATE; PLATELET MORPHOLOGY NORMAL; TOTAL CELLS COUNTED 100
[2017-01-08] MEDS: Thiamine 100mg tab ORAL SCH (08:40)
[2017-01-08] MEDS: HydrOXYzine 50mg cap ORAL SCH ×3 (08:40→18:37)
[2017-01-08] MEDS: Morphine Sulfate 2mg/ml Inj IM PRN (08:41)
--- NOTE | 2017-01-08 09:06 | Pulmonology Progress Note ---
Assessment/Plan Assessment/Plan ASSESSMENT abdominal pain transaminitis fatty liver alcoholic hepatitis anemia generalized anxiety disorder possible MDD PLAN OF CARE [facility] floor pain management program counselor on abstinence from ETOH tox screen + opiates, benzo continue with Thiamine trend LFT last abdominal US was negative for gallstones or dilated ducts, and revealed enlarged fatty liver, abdominal US revealed Hepatomegaly with fatty infiltration, no change from previous study . hepatitis panel was recently checked ( in November) -negative GI follows started on Trental BP management monitor HH, anxiolytic prn a/emetic prn GI prophylaxis psych eval noted , started on Prozac and Neurontin case discussed and evaluated by supervising physician Subjective Allergies: Coded Allergies: IBUPROFEN (Verified Allergy, Severe, Anaphylaxis, 06/12/16) swollen face and lips NSAIDS (NON-STEROIDAL ANTI-INFLAMMA (Verified Allergy, Severe, Anaphylaxis , 06/12/16) swollen face and lips Uncoded Allergies: NSAIDS include Ibuprofen (Adverse Reaction, Severe, Anaphylaxis, 06/11/16) Swollen face and lip Subjective tolerates diet no n/v/diarrhea no fever, no leucocytosis Objective Last 24 Hour Vital Signs Date Time Temp Pulse Resp B/P (MAP) Pulse Ox O2 Delivery O2 Flow Rate FiO2 01/08/17 04:57 98.0 01/08/17 04:00 98.0 81 18 139/90 94 Room Air 01/07/17 20:00 97.9 70 19 106/58 96 Room Air 01/07/17 16:00 97.9 86 19 112/74 95 Room Air 01/07/17 12:00 98.2 87 18 106/67 96 Room Air Objective General: NAD, awake, alert, obese AA female HEENT: normocephalic, atraumatic, anicteric Neck: non-tender, normal alignment Respiratory/Chest: lungs clear with moderate air entry Cardiovascular/Chest: normal peripheral pulses, normal rate, regular rhythm Abdomen: normal bowel sounds, non tender, obese, soft, no guarding, no rebound Extremities: normal range of motion, non-tender, no calf tenderness Skin Exam: warm/dry Neurologic: no motor/sensory deficits, alert, responsive Musculoskeletal: normal muscle bulk Microbiology Date/Time Source Procedure Growth Status 01/05/17 21:11 Nasal Nares MRSA Culture - Final NO METHICILLIN RESISTANT STAPH AUREUS... Complete 01/05/17 21:11 Rectum VRE Culture - Final Enterococcus Faecalis - Vre Complete Laboratory Tests 01/08/17 06:45: White Blood Count 4.1L, Red Blood Count 2.82L, Hemoglobin 10.1L, Hematocrit 31.8L, Mean Corpuscular Volume 113H, Mean Corpuscular Hemoglobin 35.8H, Mean Corpuscular Hemoglobin Concent 31.7L, Red Cell Distribution Width 17.1H, Platelet Count 307, Mean Platelet Volume 5.4L, Neutrophils (%) (Auto) , Lymphocytes (%) (Auto) , Monocytes (%) (Auto) , Eosinophils (%) (Auto) , Basophils (%) (Auto) , Differential Total Cells Counted 100, Neutrophils % ( Manual) 31L, Lymphocytes % (Manual) 59H, Monocytes % (Manual) 8, Eosinophils % ( Manual) 2, Basophils % (Manual) 0, Band Neutrophils 0, Platelet Estimate Adequate, Platelet Morphology Normal, Hypochromasia 1+, Anisocytosis 1+, Macrocytosis 1+, Sodium Level 145, Potassium Level 3.6, Chloride Level 109H, Carbon Dioxide Level 27, Anion Gap 9, Blood Urea Nitrogen 7, Creatinine 0.6, Estimat Glomerular Filtration Rate > 60, Glucose Level 78, Calcium Level 8.4L Current Medications Medications (Trade) Dose Ordered Sig/Payam Route PRN Reason Start Time Stop Time Status Last Admin Dose Admin Acetaminophen (Tylenol) 650 mg Q4H PRN ORAL fever 01/06/17 06:45 02/05/17 06:44 Al Hydroxide/Mg Hydroxide (Mylanta II) 30 ml Q6H PRN ORAL dyspepsia 01/06/17 06:45 02/05/17 06:44 Dextrose (Dextrose 50%) STAT PRN IV Hypoglycemia 01/06/17 06:45 02/05/17 06:44 Diazepam (Valium) 10 mg Q4H PRN ORAL anxiety 01/06/17 06:45 01/13/17 06:44 01/08/17 06:41 Fluoxetine HCl (PROzac) 20 mg DAILY ORAL 01/06/17 09:00 02/05/17 08:59 01/08/17 08:40 Gabapentin (Neurontin) 300 mg THREE TIMES A DAY ORAL 01/06/17 18:00 02/05/17 17:59 01/06/17 18:16 Hydroxyzine HCl (Atarax) 50 mg BID ORAL 01/07/17 09:00 02/06/17 08:59 01/07/17 18:07 Lorazepam (Ativan 2mg/ml 1ml) 0.5 mg Q4H PRN IV For Anxiety 01/06/17 06:45 01/13/17 06:44 Morphine Sulfate (Morphine Sulfate) 1 mg EVERY 4 HOURS PRN IVP For Pain 01/06/17 06:45 01/13/17 06:44 01/08/17 04:26 Morphine Sulfate (Morphine Sulfate) 2 mg Q4H PRN IM Moderate Pain (Pain Scale 4-6) 01/06/17 16:30 01/13/17 16:29 01/08/17 08:41 Ondansetron HCl (Zofran) 4 mg Q6H PRN IVP Nausea & Vomiting 01/06/17 06:45 02/05/17 06:44 01/07/17 09:18 Polyethylene Glycol (Miralax) 17 gm HSPRN PRN ORAL Constipation 01/06/17 06:45 02/05/17 06:44 Ranitidine HCl (Zantac) 150 mg BEDTIME ORAL 01/06/17 21:00 02/05/17 20:59 01/07/17 20:22 Thiamine HCl (Vitamin B1) 100 mg DAILY ORAL 01/07/17 09:00 02/06/17 08:59 01/08/17 08:40 Zolpidem Tartrate (Ambien) 5 mg HSPRN PRN ORAL Insomnia 01/06/17 06:45 01/13/17 06:44 Jose BritoJuhi diallo NP Jan 08, 2017 09:06
[2017-01-08 12:00] VITALS: BP 125/87
--- NOTE | 2017-01-08 12:12 | General Progress Note ---
Assessment/Plan Status Narrative (1) Intractable pain (2) Hydradenitis (4) Lumbar DDD (5) Lumbar Spondylosis (6) Morbid obesity h/o gastric sleeve surgery (7) Abdominal pain The patient will be continued on Morphine 2-4mg IV Q4H PRN Mod to Severe pain. The patient was discussed with Dr. Art and Dr. Art concurred. Thank you for the courtesy of this consultation. Subjective Date patient seen: Jan 08, 2017 Time patient seen: 11:15 - am Allergies: Coded Allergies: IBUPROFEN (Verified Allergy, Severe, Anaphylaxis, 06/12/16) swollen face and lips NSAIDS (NON-STEROIDAL ANTI-INFLAMMA (Verified Allergy, Severe, Anaphylaxis , 06/12/16) swollen face and lips Uncoded Allergies: NSAIDS include Ibuprofen (Adverse Reaction, Severe, Anaphylaxis, 06/11/16) Swollen face and lip Subjective REVIEW OF SYSTEMS: Denies rash, fever, chills, sweating, dizziness, drowsiness, blurred vision, sore throat, or change in her weight. No shortness of breath or chest pain. No nausea or vomiting at this time. No bowel or bladder incontinence. No dysuria. She is complaining of abdominal pain, back pain, right armpit pain, and lower extremity pain. SUBJECTIVE: Pt is a known patient from prior admissions and now has been admitted due to weakness. Continues to c/o abdominal and back pain. We were consulted so patient would have adequate pain control while here in the hospital. Objective Last 24 Hour Vital Signs Date Time Temp Pulse Resp B/P (MAP) Pulse Ox O2 Delivery O2 Flow Rate FiO2 01/08/17 08:05 98.0 86 18 113/78 97 Room Air 01/08/17 04:57 98.0 01/08/17 04:00 98.0 81 18 139/90 94 Room Air 01/07/17 20:00 97.9 70 19 106/58 96 Room Air 01/07/17 16:00 97.9 86 19 112/74 95 Room Air Laboratory Tests 01/08/17 06:45: White Blood Count 4.1L, Red Blood Count 2.82L, Hemoglobin 10.1L, Hematocrit 31.8L, Mean Corpuscular Volume 113H, Mean Corpuscular Hemoglobin 35.8H, Mean Corpuscular Hemoglobin Concent 31.7L, Red Cell Distribution Width 17.1H, Platelet Count 307, Mean Platelet Volume 5.4L, Neutrophils (%) (Auto) , Lymphocytes (%) (Auto) , Monocytes (%) (Auto) , Eosinophils (%) (Auto) , Basophils (%) (Auto) , Differential Total Cells Counted 100, Neutrophils % ( Manual) 31L, Lymphocytes % (Manual) 59H, Monocytes % (Manual) 8, Eosinophils % ( Manual) 2, Basophils % (Manual) 0, Band Neutrophils 0, Platelet Estimate Adequate, Platelet Morphology Normal, Hypochromasia 1+, Anisocytosis 1+, Macrocytosis 1+, Sodium Level 145, Potassium Level 3.6, Chloride Level 109H, Carbon Dioxide Level 27, Anion Gap 9, Blood Urea Nitrogen 7, Creatinine 0.6, Estimat Glomerular Filtration Rate > 60, Glucose Level 78, Calcium Level 8.4L Height (Feet): 5 Height (Inches): 8.00 Weight (Pounds): 199 Objective GENERAL: Alert, awake, and oriented x3. HEENT: PERRLA. NECK: Range of motion is full in all directions. No tenderness. No adenopathy. LUNGS: Clear. HEART: Regular. ABDOMEN: Tenderness to palpation. BACK: Range of motion is decreased in flexion and extension with tenderness to paraspinal muscles and trapezial muscles. EXTREMITIES: Motor is intact. No cyanosis. No clubbing. NEURO: No focal deficit OMARI LUA Jan 08, 2017 12:12
[2017-01-08] MEDS: Morphine Sulfate 4mg/ml Inj IVP PRN ×4 (12:46→22:00)
[2017-01-08] MEDS ORDERED: Morphine Sulfate 2mg/ml Inj IV PRN (13:00)
[2017-01-08 16:00] VITALS: BP 114/75
--- NOTE | 2017-01-08 16:09 | Cardiology Progress Note ---
Assessment/Plan Assessment/Plan The patient is seen and examined, full consult note will be dictated shortly. Objective Last 24 Hour Vital Signs Date Time Temp Pulse Resp B/P (MAP) Pulse Ox O2 Delivery O2 Flow Rate FiO2 01/08/17 12:00 97.2 92 20 125/87 98 Room Air 01/08/17 08:05 98.0 86 18 113/78 97 Room Air 01/08/17 04:57 98.0 01/08/17 04:00 98.0 81 18 139/90 94 Room Air 01/07/17 20:00 97.9 70 19 106/58 96 Room Air Laboratory Tests Test 01/08/17 06:45 White Blood Count 4.1 K/UL (4.8-10.8) L Red Blood Count 2.82 M/UL (4.20-5.40) L Hemoglobin 10.1 G/DL (12.0-16.0) L Hematocrit 31.8 % (37.0-47.0) L Mean Corpuscular Volume 113 FL (80-99) H Mean Corpuscular Hemoglobin 35.8 PG (27.0-31.0) H Mean Corpuscular Hemoglobin Concent 31.7 G/DL (32.0-36.0) L Red Cell Distribution Width 17.1 % (11.6-14.8) H Platelet Count 307 K/UL (150-450) Mean Platelet Volume 5.4 FL (6.5-10.1) L Neutrophils (%) (Auto) % (45.0-75.0) Lymphocytes (%) (Auto) % (20.0-45.0) Monocytes (%) (Auto) % (1.0-10.0) Eosinophils (%) (Auto) % (0.0-3.0) Basophils (%) (Auto) % (0.0-2.0) Differential Total Cells Counted 100 Neutrophils % (Manual) 31 % (45-75) L Lymphocytes % (Manual) 59 % (20-45) H Monocytes % (Manual) 8 % (1-10) Eosinophils % (Manual) 2 % (0-3) Basophils % (Manual) 0 % (0-2) Band Neutrophils 0 % (0-8) Platelet Estimate Adequate Platelet Morphology Normal Hypochromasia 1+ Anisocytosis 1+ Macrocytosis 1+ Sodium Level 145 mEQ/L (135-145) Potassium Level 3.6 mEQ/L (3.4-4.9) Chloride Level 109 mEQ/L (98-107) H Carbon Dioxide Level 27 mEQ/L (20-30) Anion Gap 9 (5-15) Blood Urea Nitrogen 7 mg/dL (7-23) Creatinine 0.6 mg/dL (0.5-0.9) Estimat Glomerular Filtration Rate > 60 mL/min (>60) Glucose Level 78 mg/dL (74-106) Calcium Level 8.4 mg/dL (8.6-10.2) L Microbiology Date/Time Source Procedure Growth Status 01/05/17 21:11 Nasal Nares MRSA Culture - Final NO METHICILLIN RESISTANT STAPH AUREUS... Complete 01/05/17 21:11 Rectum VRE Culture - Final Enterococcus Faecalis - Vre Complete MARYA LOYOLA Jan 08, 2017 16:09
--- NOTE | 2017-01-08 17:10 | General Progress Note ---
Assessment/Plan Assessment/Plan Assessment (1) Transaminitis (2) GERD (gastroesophageal reflux disease) (3) Alcoholic hepatitis (4) Fatty liver (5) Abdominal pain Plan hepatitis panel >> negative, possibly EtOH transaminitis LUPE negative lipase unremarkable symptomatic treatment at this time anemia work up >> ordered B12 / folate levels pain mgmt pentoxifylline monitor H&H, transfuse prn H2B repeat LFTs avoid alcohol fu labs Subjective Allergies: Coded Allergies: IBUPROFEN (Verified Allergy, Severe, Anaphylaxis, 06/12/16) swollen face and lips NSAIDS (NON-STEROIDAL ANTI-INFLAMMA (Verified Allergy, Severe, Anaphylaxis , 06/12/16) swollen face and lips Uncoded Allergies: NSAIDS include Ibuprofen (Adverse Reaction, Severe, Anaphylaxis, 06/11/16) Swollen face and lip Subjective Feels OK tolerating PO Objective Last 24 Hour Vital Signs Date Time Temp Pulse Resp B/P (MAP) Pulse Ox O2 Delivery O2 Flow Rate FiO2 01/08/17 16:00 97.2 86 18 114/75 97 Room Air 01/08/17 12:00 97.2 92 20 125/87 98 Room Air 01/08/17 08:05 98.0 86 18 113/78 97 Room Air 01/08/17 04:57 98.0 01/08/17 04:00 98.0 81 18 139/90 94 Room Air 01/07/17 20:00 97.9 70 19 106/58 96 Room Air Laboratory Tests 01/08/17 06:45: White Blood Count 4.1L, Red Blood Count 2.82L, Hemoglobin 10.1L, Hematocrit 31.8L, Mean Corpuscular Volume 113H, Mean Corpuscular Hemoglobin 35.8H, Mean Corpuscular Hemoglobin Concent 31.7L, Red Cell Distribution Width 17.1H, Platelet Count 307, Mean Platelet Volume 5.4L, Neutrophils (%) (Auto) , Lymphocytes (%) (Auto) , Monocytes (%) (Auto) , Eosinophils (%) (Auto) , Basophils (%) (Auto) , Differential Total Cells Counted 100, Neutrophils % ( Manual) 31L, Lymphocytes % (Manual) 59H, Monocytes % (Manual) 8, Eosinophils % ( Manual) 2, Basophils % (Manual) 0, Band Neutrophils 0, Platelet Estimate Adequate, Platelet Morphology Normal, Hypochromasia 1+, Anisocytosis 1+, Macrocytosis 1+, Sodium Level 145, Potassium Level 3.6, Chloride Level 109H, Carbon Dioxide Level 27, Anion Gap 9, Blood Urea Nitrogen 7, Creatinine 0.6, Estimat Glomerular Filtration Rate > 60, Glucose Level 78, Calcium Level 8.4L Height (Feet): 5 Height (Inches): 8.00 Weight (Pounds): 199 Objective WDWN NCAT supple CTA Abd soft NT ND no edema non focal GARRETT ORLANDO Jan 08, 2017 17:10
[2017-01-08 20:00] VITALS: BP 130/82
[2017-01-08] MEDS: Propranolol 10mg tab ORAL SCH (22:00)
[2017-01-08] MEDS ORDERED: Propranolol 10mg tab ORAL SCH (22:00)
--- NOTE | 2017-01-08 22:57 | General Progress Note ---
Assessment/Plan Status: stable, progressing Subjective Neurologic/Psychiatric: Reports: anxiety, depressed, emotional problems Allergies: Coded Allergies: IBUPROFEN (Verified Allergy, Severe, Anaphylaxis, 06/12/16) swollen face and lips NSAIDS (NON-STEROIDAL ANTI-INFLAMMA (Verified Allergy, Severe, Anaphylaxis , 06/12/16) swollen face and lips Uncoded Allergies: NSAIDS include Ibuprofen (Adverse Reaction, Severe, Anaphylaxis, 06/11/16) Swollen face and lip Subjective the pt c/o depressive and anxiety sxs. the pt has med seeking behavior. I discuss the case with dr. Olvera. Informed him that the pt was having depressive sxs and I was consulted to see him. Dr. Olvera was ok with consult. Objective Last 24 Hour Vital Signs Date Time Temp Pulse Resp B/P (MAP) Pulse Ox O2 Delivery O2 Flow Rate FiO2 01/08/17 22:30 97.2 01/08/17 22:00 75 105/65 01/08/17 20:00 97.9 75 21 130/82 92 Room Air 01/08/17 16:00 97.2 86 18 114/75 97 Room Air 01/08/17 12:00 97.2 92 20 125/87 98 Room Air 01/08/17 08:05 98.0 86 18 113/78 97 Room Air 01/08/17 04:57 98.0 01/08/17 04:00 98.0 81 18 139/90 94 Room Air Laboratory Tests 01/08/17 06:45: White Blood Count 4.1L, Red Blood Count 2.82L, Hemoglobin 10.1L, Hematocrit 31.8L, Mean Corpuscular Volume 113H, Mean Corpuscular Hemoglobin 35.8H, Mean Corpuscular Hemoglobin Concent 31.7L, Red Cell Distribution Width 17.1H, Platelet Count 307, Mean Platelet Volume 5.4L, Neutrophils (%) (Auto) , Lymphocytes (%) (Auto) , Monocytes (%) (Auto) , Eosinophils (%) (Auto) , Basophils (%) (Auto) , Differential Total Cells Counted 100, Neutrophils % ( Manual) 31L, Lymphocytes % (Manual) 59H, Monocytes % (Manual) 8, Eosinophils % ( Manual) 2, Basophils % (Manual) 0, Band Neutrophils 0, Platelet Estimate Adequate, Platelet Morphology Normal, Hypochromasia 1+, Anisocytosis 1+, Macrocytosis 1+, Sodium Level 145, Potassium Level 3.6, Chloride Level 109H, Carbon Dioxide Level 27, Anion Gap 9, Blood Urea Nitrogen 7, Creatinine 0.6, Estimat Glomerular Filtration Rate > 60, Glucose Level 78, Calcium Level 8.4L Height (Feet): 5 Height (Inches): 8.00 Weight (Pounds): 199 General Appearance: no apparent distress, alert Neurologic: alert, oriented x 3, responsive, depressed affect Jeanne Swenson M.D. Jan 08, 2017 22:57
[2017-01-09] VITALS: BP 101/53
[2017-01-09] MEDS: Morphine Sulfate 4mg/ml Inj IVP PRN ×6 (03:01→23:28)
[2017-01-09 04:00] VITALS: BP 121/65
--- NOTE | 2017-01-09 04:30 | Consultation ---
DATE OF CONSULTATION: 01/08/2017 CARDIOLOGY CONSULTATION CONSULTING PHYSICIAN: Ritchie Melendez M.D. REFERRING PHYSICIAN: Franky Olvera D.O. REASON FOR CONSULTATION: Management of hypotension. HISTORY OF PRESENT ILLNESS: The patient is a very pleasant 41-year-old female with a history of alcoholism, sent from rehabilitation facility for hypotension, which occurred during the rehabilitation therapy. The patient had associated generalized weakness, malaise, and fatigue. She also has been complaining of abdominal pain for the past two weeks. Initial workup in the emergency department showed normal lipase level, however, the liver enzymes were elevated. Cardiology consultation was made at the request of Dr. Olvera for management of hypotension. PAST MEDICAL HISTORY: History of pancreatitis, history of alcoholism, history of hypertension, history of sepsis, hidradenitis suppurativa left upper arm, history of gastroesophageal reflux disease, and history of anxiety disorder. ALLERGIES: To ibuprofen and nonsteroidal anti-inflammatory drugs in general. LIST OF MEDICATIONS: Keflex 500 mg four times a day, chlorhexidine gluconate 110 mL q.d., clindamycin 450 mg q.8 hours, diazepam 10 mg p.o. q.4 hours p.r.n., Colace 100 mg p.o. three times daily, Vibramycin 100 mg q.12 hours, doxycycline 100 mg q.12 hours, fluconazole 100 mg full tablet q.i.d., folic acid 1 mg p.o. daily, levofloxacin 500 mg p.o. daily, hydrocodone-acetaminophen 5/325 mg one tablet q.6 hours p.r.n., potassium chloride 20 mEq p.o. daily, propranolol 20 mg p.o. q.8 hours, and Zantac 150 mg at bedtime. SURGICAL HISTORY: None. SOCIAL HISTORY: Drinking alcohol on a daily basis. Used to be a heavy drinker. Denies any tobacco or illicit drug use. FAMILY HISTORY: No premature coronary artery disease in first-degree relatives. REVIEW OF SYSTEMS: HEENT: Denies any headache, diplopia, or blurred vision. Constitutional: Complains of generalized weakness, but no fever, chills, or night sweats. Cardiovascular: Denies any chest pain, shortness of breath, PND, orthopnea, or leg swelling. Pulmonary: Denies any cough, hemoptysis, or wheezing. Gastrointestinal: Denies any nausea, vomiting, diarrhea, or constipation. There is some abdominal pain that has been going on for about two weeks. Extremities: No evidence of edema, clubbing, or cyanosis. PHYSICAL EXAMINATION: VITAL SIGNS: Blood pressure was 136/65, respirations 16, pulse of 75, temperature 98.1 degrees Fahrenheit, and O2 saturation 95% on room air. GENERAL: The patient is a very pleasant, 41-year-old female, in no apparent respiratory distress. HEENT: Atraumatic and normocephalic. Anicteric. Pupils are equal, round, and reactive to light and accommodation. There is significant pallor. NECK: JVP is about 8 to 10 cm. Bilateral carotid bruits. CARDIOVASCULAR: Normal S1 and S2. Regular rate and rhythm. No murmurs, gallops, or rubs. PMI is at fourth intercostal space in the midclavicular line. LUNGS: Bibasilar crackles. ABDOMEN: Soft, nontender, and nondistended. No hepatosplenomegaly. Positive bowel sounds. EXTREMITIES: No evidence of edema, clubbing, or cyanosis. LABORATORY DATA: WBC 5.0, hemoglobin 11.1, hematocrit 33.9, and platelet count 318,000. Chemistry shows sodium 141, potassium 3.6, chloride 105, bicarbonate 26, BUN 7, creatinine 0.5, glucose 84 and calcium is 8.6. Triglycerides 106. Cholesterol is 128, LDL is 64 and HDL of 42. ASSESSMENT AND PLAN: 1. Hypotension, which is resolved. We will continue monitoring hemodynamics with 2D echocardiography as well. 2. Elevated liver enzymes likely secondary to chronic alcohol use. I would like to thank, Dr. Olvera, for allowing me to participate in the care of this patient. Ritchie Melendez M.D. DR: DONALDO JOB#: [id number] CC:
[2017-01-09] MEDS: Propranolol 10mg tab ORAL SCH ×2 (06:00→14:00)
[2017-01-09 07:34] LABS: MEAN CORPUSCULAR HEMOGLOBIN 37.2 PG (27.0-31.0); MEAN CORPUSCULAR HGB CONC 33.2 G/DL (32.0-36.0); MEAN CORPUSCULAR VOLUME 112 FL (80-99); PLATELET COUNT 323 K/UL (150-450); RED BLOOD COUNT 2.81 M/UL (4.20-5.40); RED CELL DISTRIBUTION WIDTH 16.9 % (11.6-14.8); WHITE BLOOD COUNT 5.3 K/UL (4.8-10.8)
[2017-01-09 07:56] LABS: ALANINE AMINOTRANSFERASE 26 U/L (3-33); ALBUMIN/GLOBULIN RATIO 0.6 (1.0-2.7); ANION GAP 9 (5-15); ASPARTATE AMINO TRANSFERASE 61 U/L (5-40); CALCIUM 8.3 mg/dL (8.6-10.2); CARBON DIOXIDE 27 mEQ/L (20-30); CHLORIDE 104 mEQ/L (98-107); CREATININE 0.6 mg/dL (0.5-0.9); GLOMERULAR FILTRATION RATE > 60 mL/min (>60); HEMOLYSIS 1; POTASSIUM 3.7 mEQ/L (3.4-4.9); SODIUM 140 mEQ/L (135-145); TOTAL PROTEIN 5.9 g/dL (6.6-8.7)
[2017-01-09 08:00] VITALS: BP 120/52
--- NOTE | 2017-01-09 08:15 | Progress Note ---
DATE: 01/09/2017 SUBJECTIVE: This is a 41-year-old female patient with generalized weakness. She has confusion and disorganized thought process, but also mainly complains of anxiety. Plan is to continue treatment with Neurontin to reduce anxiety and . Seen and assessed at bedside. Chart reviewed and discussed with staff. . DIAGNOSIS: Diagnosis of generalized anxiety disorder, rule out major depressive disorder. . Biju Lee M.D. DR: FELICE JOB#: [id number] CC:
--- NOTE | 2017-01-09 08:18 | General Progress Note ---
Assessment/Plan Assessment/Plan (1) Intractable pain (2) Hydradenitis (4) Lumbar DDD (5) Lumbar Spondylosis (6) Morbid obesity h/o gastric sleeve surgery (7) Abdominal pain The patient will be continued on Morphine The patient was discussed with Dr. Art and Dr. Art concurred. Subjective Date patient seen: Jan 09, 2017 Time patient seen: 07:30 - am Allergies: Coded Allergies: IBUPROFEN (Verified Allergy, Severe, Anaphylaxis, 06/12/16) swollen face and lips NSAIDS (NON-STEROIDAL ANTI-INFLAMMA (Verified Allergy, Severe, Anaphylaxis , 06/12/16) swollen face and lips Uncoded Allergies: NSAIDS include Ibuprofen (Adverse Reaction, Severe, Anaphylaxis, 06/11/16) Swollen face and lip Subjective REVIEW OF SYSTEMS: Denies rash, fever, chills, sweating, dizziness, drowsiness, blurred vision, sore throat, or change in her weight. No shortness of breath or chest pain. No nausea or vomiting at this time. No bowel or bladder incontinence. No dysuria. She is complaining of abdominal pain, back pain, right armpit pain, and lower extremity pain. SUBJECTIVE: Pt is laying in bed no signs of pain or distress. She has used the Morphine which has kept her pain at a moderate level. Objective Last 24 Hour Vital Signs Date Time Temp Pulse Resp B/P (MAP) Pulse Ox O2 Delivery O2 Flow Rate FiO2 01/09/17 07:25 98.2 01/09/17 06:00 82 121/65 01/09/17 04:00 98.2 82 21 121/65 93 Room Air 01/09/17 00:00 97.7 94 22 101/53 96 Room Air 01/08/17 22:00 75 105/65 01/08/17 20:00 97.9 75 21 130/82 92 Room Air 01/08/17 16:00 97.2 86 18 114/75 97 Room Air 01/08/17 12:00 97.2 92 20 125/87 98 Room Air Laboratory Tests 01/09/17 07:00: White Blood Count 5.3, Red Blood Count 2.81L, Hemoglobin 10.5L, Hematocrit 31.5L , Mean Corpuscular Volume 112H, Mean Corpuscular Hemoglobin 37.2H, Mean Corpuscular Hemoglobin Concent 33.2, Red Cell Distribution Width 16.9H, Platelet Count 323, Mean Platelet Volume 6.0L, Neutrophils (%) (Auto) , Lymphocytes (%) (Auto) , Monocytes (%) (Auto) , Eosinophils (%) (Auto) , Basophils (%) (Auto) , Neutrophils % (Manual) [Pending], Lymphocytes % (Manual) [Pending], Platelet Estimate [Pending], Platelet Morphology [Pending], Sodium Level 140, Potassium Level 3.7, Chloride Level 104, Carbon Dioxide Level 27, Anion Gap 9, Blood Urea Nitrogen 10, Creatinine 0.6, Estimat Glomerular Filtration Rate > 60, Glucose Level 82, Calcium Level 8.3L, Total Bilirubin 0.3 , Aspartate Amino Transf (AST/SGOT) 61H, Alanine Aminotransferase (ALT/SGPT) 26 , Alkaline Phosphatase 103, Total Protein 5.9L, Albumin 2.3L, Globulin 3.6, Albumin/Globulin Ratio 0.6L Height (Feet): 5 Height (Inches): 8.00 Weight (Pounds): 199 Objective GENERAL: Alert, awake, and oriented x3. HEENT: PERRLA. NECK: Range of motion is full in all directions. No tenderness. No adenopathy. LUNGS: Clear. HEART: Regular. ABDOMEN: Tenderness to palpation. BACK: Range of motion is decreased in flexion and extension with tenderness to paraspinal muscles and trapezial muscles. EXTREMITIES: Motor is intact. No cyanosis. No clubbing. NEURO: No focal deficit OMARI LUA Jan 09, 2017 08:18
[2017-01-09 08:47] LABS: BASOPHILS % (MANUAL) 1 % (0-2); EOSINOPHILS % (MANUAL) 4 % (0-3); LYMPHOCYTES % (MANUAL) 43 % (20-45); NEUTROPHILS % (MANUAL) 37 % (45-75); TOTAL CELLS COUNTED 100
[2017-01-09 08:48] LABS: ANISOCYTOSIS 1+; BAND NEUTROPHILS % (MANUAL) 1 % (0-8); HYPOCHROMASIA 1+; MICROCYTES 1+; PLATELET ESTIMATE ADEQUATE; PLATELET MORPHOLOGY NORMAL; STOMATOCYTES 1+
[2017-01-09] MEDS: Thiamine 100mg tab ORAL SCH (09:13)
[2017-01-09] MEDS: HydrOXYzine 50mg cap ORAL SCH ×2 (09:13→17:32)
--- NOTE | 2017-01-09 09:45 | Consultation ---
DATE OF CONSULTATION: INFECTIOUS DISEASE CONSULTATION REQUESTING PHYSICIAN: Franky Olvera D.O. REASON FOR CONSULTATION: Rule out sepsis and elevated transaminases, rule out infectious etiology. HISTORY OF PRESENT ILLNESS: The patient is a 41-year-old female, well known to our service, who was sent from rehabilitation facility for hypotension while she was getting physical therapy. The patient was found to be weak. She complained of abdominal pain, but had no nausea or vomiting. No diarrhea. No fever or chills. No urinary complaints. The patient has significant history of alcohol abuse and was admitted on several occasions for hepatitis and pancreatitis due to alcohol intoxication. The patient's blood pressure seems to be improved in the room, but she was admitted for further workup and evaluation. I was consulted by the primary provider for antibiotics treatment and further management. PAST MEDICAL HISTORY: Significant for alcohol abuse, hidradenitis suppurativa, GERD, and anxiety. PAST SURGICAL HISTORY: Negative. MEDICATIONS: She is on thiamine, gabapentin, hydroxyzine, morphine, fluoxetine, diazepam, and acetaminophen. ALLERGIES: She is allergic to ibuprofen and NSAIDs. SOCIAL HISTORY: She lives at the rehabilitation facility currently. No recent drugs, tobacco, or alcohol. FAMILY HISTORY: Not contributory. PHYSICAL EXAMINATION: VITAL SIGNS: Temperature 98.4 degrees, pulse 69, respirations 20, blood pressure 150/94, and saturation 98% on room air. GENERAL: Lethargic and weak, alert, not in distress. HEENT: Normocephalic and atraumatic. Pupils are reactive to light. Moist oral mucosa. NECK: Supple. No lymphadenopathy. CARDIOVASCULAR: Regular rate and rhythm. No murmur. LUNGS: Clear bilaterally. Diminished breathing sounds at the bases. ABDOMEN: Soft, nontender, and nondistended. Positive bowel sounds. Mild hepatomegaly. EXTREMITIES: no edema or cyanosis . LABORATORY AND DIAGNOSTIC DATA: Labs showed white count of 5,000, hemoglobin of 11.1, and platelet count of 318,000. BUN of 7 and creatinine of 0.5. AST of 93 and ALT of 57. Urinalysis showed +2 leukocyte esterase and few bacteria. Toxicology screening positive for benzodiazepines and opiates. Imaging, abdominal ultrasound showed hepatomegaly with fatty infiltration. No significant change from prior study. Venous Doppler is negative for DVT bilaterally. ASSESSMENT AND RECOMMENDATION: 1. Lethargy, rule out metabolic or hepatic encephalopathy. Recommend to check ammonia level. We will order blood culture to rule out sepsis or other etiology and chest x-ray to rule out pneumonia. Monitor WBC. 2. Transaminitis, suspect due to fatty liver and alcohol abuse. We will order monospot test to rule out infectious etiology. The patient had recent hepatitis panel which was negative for hepatitis. monitor liver function test avoid nephrotoxic meds medicine. 3. Generalized weakness. Consult PT/OT. Brandan Rubin M.D. DR: Elsi JOB#: [id number] CC: RONDA
--- NOTE | 2017-01-09 09:45 | Consultation ---
DATE OF CONSULTATION: 01/06/2017 HISTORY OF PRESENT ILLNESS: The patient is a 41-year-old female patient. She has generalized weakness. She has some confusion and disorganized thought process. She said her main problem that she has been having throughout her hospital course, even when she was at the facility, [facility], and she said that over there they had her on Ativan to address anxiety issues and she lacked medication management and we will further address that and to alter her medications to help stabilize her mood and reduce anxiety. SOCIAL HISTORY: She lives in [facility]. Financially supported by [employer] and Medicare. SUBSTANCE ABUSE HISTORY: Denies drug or alcohol use. PSYCHIATRIC HISTORY: Generalized anxiety disorder. MENTAL STATUS EXAMINATION: A 41-year-old female with psychomotor retardation. Mood is depressed. Affect guarded and restricted. Thought process disorganized and illogical. No signs of any suicidal or homicidal thoughts. Insight and judgement is poor. DIAGNOSIS: Generalized anxiety disorder. PLAN: I am going to change her Klonopin as needed for anxiety, but also Neurontin 300 mg 3 times daily to reduce anxiety and she will continue to followup . In addition to that, I will continue her on Prozac . Chart reviewed and discussed with staff. . I would like to thank Dr. Franky Olvera for this interesting consultation. Biju Lee M.D. DR: Halle JOB#: [id number] CC:
--- NOTE | 2017-01-09 10:58 | GI Progress Note ---
Assessment/Plan Problems: (1) Generalized weakness ICD Codes: R53.1 - Weakness SNOMED: 81019429 (2) Transaminitis ICD Codes: R74.0 - Nonspecific elevation of levels of transaminase and lactic acid dehydrogenase [LDH] SNOMED: 784726169 (3) Alcoholic hepatitis ICD Codes: K70.10 - Alcoholic hepatitis without ascites SNOMED: 564774258 (4) Fatty liver ICD Codes: K76.0 - Fatty (change of) liver, not elsewhere classified SNOMED: 256555704 (5) Severe anemia ICD Codes: D64.9 - Anemia, unspecified SNOMED: 833033829 (6) Severe malnutrition ICD Codes: E43 - Unspecified severe protein-calorie malnutrition SNOMED: 04472494 (7) Pancytopenia ICD Codes: D61.818 - Other pancytopenia SNOMED: 663674372 Status: stable Status Narrative Discussed with Dr. Jones. Assessment/Plan hepatitis panel >> negative, possibly EtOH transaminitis LUPE negative lipase unremarkable symptomatic treatment at this time anemia work up >> fu B12 / folate levels pain mgmt pentoxifylline monitor H&H, transfuse prn H2B repeat LFTs avoid alcohol fu labs Subjective Gastrointestinal/Abdominal: Reports: abdominal pain Objective Last 24 Hour Vital Signs Date Time Temp Pulse Resp B/P (MAP) Pulse Ox O2 Delivery O2 Flow Rate FiO2 01/09/17 08:00 99.0 107 20 120/52 97 Room Air 01/09/17 07:25 98.2 01/09/17 06:00 82 121/65 01/09/17 04:00 98.2 82 21 121/65 93 Room Air 01/09/17 00:00 97.7 94 22 101/53 96 Room Air 01/08/17 22:00 75 105/65 01/08/17 20:00 97.9 75 21 130/82 92 Room Air 01/08/17 16:00 97.2 86 18 114/75 97 Room Air 01/08/17 12:00 97.2 92 20 125/87 98 Room Air Laboratory Tests Test 01/09/17 07:00 White Blood Count 5.3 K/UL (4.8-10.8) Red Blood Count 2.81 M/UL (4.20-5.40) L Hemoglobin 10.5 G/DL (12.0-16.0) L Hematocrit 31.5 % (37.0-47.0) L Mean Corpuscular Volume 112 FL (80-99) H Mean Corpuscular Hemoglobin 37.2 PG (27.0-31.0) H Mean Corpuscular Hemoglobin Concent 33.2 G/DL (32.0-36.0) Red Cell Distribution Width 16.9 % (11.6-14.8) H Platelet Count 323 K/UL (150-450) Mean Platelet Volume 6.0 FL (6.5-10.1) L Neutrophils (%) (Auto) % (45.0-75.0) Lymphocytes (%) (Auto) % (20.0-45.0) Monocytes (%) (Auto) % (1.0-10.0) Eosinophils (%) (Auto) % (0.0-3.0) Basophils (%) (Auto) % (0.0-2.0) Differential Total Cells Counted 100 Neutrophils % (Manual) 37 % (45-75) L Lymphocytes % (Manual) 43 % (20-45) Monocytes % (Manual) 14 % (1-10) H Eosinophils % (Manual) 4 % (0-3) H Basophils % (Manual) 1 % (0-2) Band Neutrophils 1 % (0-8) Platelet Estimate Adequate Platelet Morphology Normal Hypochromasia 1+ Anisocytosis 1+ Microcytosis 1+ Stomatocytes 1+ Sodium Level 140 mEQ/L (135-145) Potassium Level 3.7 mEQ/L (3.4-4.9) Chloride Level 104 mEQ/L (98-107) Carbon Dioxide Level 27 mEQ/L (20-30) Anion Gap 9 (5-15) Blood Urea Nitrogen 10 mg/dL (7-23) Creatinine 0.6 mg/dL (0.5-0.9) Estimat Glomerular Filtration Rate > 60 mL/min (>60) Glucose Level 82 mg/dL (74-106) Calcium Level 8.3 mg/dL (8.6-10.2) L Total Bilirubin 0.3 mg/dL (0.0-1.2) Aspartate Amino Transf (AST/SGOT) 61 U/L (5-40) H Alanine Aminotransferase (ALT/SGPT) 26 U/L (3-33) Alkaline Phosphatase 103 U/L (35-104) Total Protein 5.9 g/dL (6.6-8.7) L Albumin 2.3 g/dL (3.5-5.2) L Globulin 3.6 g/dL Albumin/Globulin Ratio 0.6 (1.0-2.7) L Height (Feet): 5 Height (Inches): 8.00 Weight (Pounds): 199 General Appearance: no apparent distress, alert Cardiovascular: normal rate Respiratory/Chest: normal breath sounds, no respiratory distress Abdominal Exam: normal bowel sounds, non tender, soft Nayeli Box N.P. Jan 09, 2017 10:58
[2017-01-09 12:00] VITALS: BP 98/69
--- NOTE | 2017-01-09 13:38 | General Progress Note ---
Assessment/Plan Status: stable Assessment/Plan will sign off Subjective Allergies: Coded Allergies: IBUPROFEN (Verified Allergy, Severe, Anaphylaxis, 06/12/16) swollen face and lips NSAIDS (NON-STEROIDAL ANTI-INFLAMMA (Verified Allergy, Severe, Anaphylaxis , 06/12/16) swollen face and lips Uncoded Allergies: NSAIDS include Ibuprofen (Adverse Reaction, Severe, Anaphylaxis, 06/11/16) Swollen face and lip Subjective the pt c/o depressive and anxiety sxs. the pt has med seeking behavior. I discuss the case with dr. Olvera. Informed him that the pt was having depressive sxs and I was consulted to see him. Dr. Olvera was ok with consult. As soon as I received the consult I notified Dr. Olvera in [facility] room in [facility] whom stated will notify Dr. Lee. the pt cont to be depressed and anxious. will sign off. Dr. Lee documenting on this case as well. Objective Last 24 Hour Vital Signs Date Time Temp Pulse Resp B/P (MAP) Pulse Ox O2 Delivery O2 Flow Rate FiO2 01/09/17 12:00 98.1 99 21 98/69 95 Room Air 01/09/17 08:00 99.0 107 20 120/52 97 Room Air 01/09/17 07:25 98.2 01/09/17 06:00 82 121/65 01/09/17 04:00 98.2 82 21 121/65 93 Room Air 01/09/17 00:00 97.7 94 22 101/53 96 Room Air 01/08/17 22:00 75 105/65 01/08/17 20:00 97.9 75 21 130/82 92 Room Air 01/08/17 16:00 97.2 86 18 114/75 97 Room Air Laboratory Tests 01/09/17 07:00: White Blood Count 5.3, Red Blood Count 2.81L, Hemoglobin 10.5L, Hematocrit 31.5L , Mean Corpuscular Volume 112H, Mean Corpuscular Hemoglobin 37.2H, Mean Corpuscular Hemoglobin Concent 33.2, Red Cell Distribution Width 16.9H, Platelet Count 323, Mean Platelet Volume 6.0L, Neutrophils (%) (Auto) , Lymphocytes (%) (Auto) , Monocytes (%) (Auto) , Eosinophils (%) (Auto) , Basophils (%) (Auto) , Differential Total Cells Counted 100, Neutrophils % ( Manual) 37L, Lymphocytes % (Manual) 43, Monocytes % (Manual) 14H, Eosinophils % (Manual) 4H, Basophils % (Manual) 1, Band Neutrophils 1, Platelet Estimate Adequate, Platelet Morphology Normal, Hypochromasia 1+, Anisocytosis 1+, Microcytosis 1+, Stomatocytes 1+, Sodium Level 140, Potassium Level 3.7, Chloride Level 104, Carbon Dioxide Level 27, Anion Gap 9, Blood Urea Nitrogen 10 , Creatinine 0.6, Estimat Glomerular Filtration Rate > 60, Glucose Level 82, Calcium Level 8.3L, Total Bilirubin 0.3, Aspartate Amino Transf (AST/SGOT) 61H, Alanine Aminotransferase (ALT/SGPT) 26, Alkaline Phosphatase 103, Total Protein 5.9L, Albumin 2.3L, Globulin 3.6, Albumin/Globulin Ratio 0.6L Height (Feet): 5 Height (Inches): 8.00 Weight (Pounds): 199 General Appearance: no apparent distress, alert, overweight Neurologic: alert, oriented x 3, responsive, depressed affect Jeanne Swenson M.D. Jan 09, 2017 13:38
--- NOTE | 2017-01-09 13:39 | General Progress Note ---
Assessment/Plan Problem List: (1) Abdominal pain ICD Codes: R10.9 - Unspecified abdominal pain SNOMED: 70843787 Qualifiers: Qualified Codes: R10.84 - Generalized abdominal pain (2) Anxiety ICD Codes: F41.9 - Anxiety disorder, unspecified SNOMED: 16826858 (3) Hydradenitis ICD Codes: L73.2 - Hidradenitis suppurativa SNOMED: 67782726 (4) Acute pancreatitis ICD Codes: K85.90 - Acute pancreatitis without necrosis or infection, unspecified SNOMED: 482988349 (5) Generalized weakness ICD Codes: R53.1 - Weakness SNOMED: 60591904 Status: stable, progressing, tolerating diet Assessment/Plan ot pt diet abx pain control cbc bmp am ltach eval vs snf Subjective Constitutional: Reports: weakness Allergies: Coded Allergies: IBUPROFEN (Verified Allergy, Severe, Anaphylaxis, 06/12/16) swollen face and lips NSAIDS (NON-STEROIDAL ANTI-INFLAMMA (Verified Allergy, Severe, Anaphylaxis , 06/12/16) swollen face and lips Uncoded Allergies: NSAIDS include Ibuprofen (Adverse Reaction, Severe, Anaphylaxis, 06/11/16) Swollen face and lip All Systems: reviewed and negative except above Subjective sl gen pain eating ok Objective Last 24 Hour Vital Signs Date Time Temp Pulse Resp B/P (MAP) Pulse Ox O2 Delivery O2 Flow Rate FiO2 01/09/17 12:00 98.1 99 21 98/69 95 Room Air 01/09/17 08:00 99.0 107 20 120/52 97 Room Air 01/09/17 07:25 98.2 01/09/17 06:00 82 121/65 01/09/17 04:00 98.2 82 21 121/65 93 Room Air 01/09/17 00:00 97.7 94 22 101/53 96 Room Air 01/08/17 22:00 75 105/65 01/08/17 20:00 97.9 75 21 130/82 92 Room Air 01/08/17 16:00 97.2 86 18 114/75 97 Room Air Laboratory Tests 01/09/17 07:00: White Blood Count 5.3, Red Blood Count 2.81L, Hemoglobin 10.5L, Hematocrit 31.5L , Mean Corpuscular Volume 112H, Mean Corpuscular Hemoglobin 37.2H, Mean Corpuscular Hemoglobin Concent 33.2, Red Cell Distribution Width 16.9H, Platelet Count 323, Mean Platelet Volume 6.0L, Neutrophils (%) (Auto) , Lymphocytes (%) (Auto) , Monocytes (%) (Auto) , Eosinophils (%) (Auto) , Basophils (%) (Auto) , Differential Total Cells Counted 100, Neutrophils % ( Manual) 37L, Lymphocytes % (Manual) 43, Monocytes % (Manual) 14H, Eosinophils % (Manual) 4H, Basophils % (Manual) 1, Band Neutrophils 1, Platelet Estimate Adequate, Platelet Morphology Normal, Hypochromasia 1+, Anisocytosis 1+, Microcytosis 1+, Stomatocytes 1+, Sodium Level 140, Potassium Level 3.7, Chloride Level 104, Carbon Dioxide Level 27, Anion Gap 9, Blood Urea Nitrogen 10 , Creatinine 0.6, Estimat Glomerular Filtration Rate > 60, Glucose Level 82, Calcium Level 8.3L, Total Bilirubin 0.3, Aspartate Amino Transf (AST/SGOT) 61H, Alanine Aminotransferase (ALT/SGPT) 26, Alkaline Phosphatase 103, Total Protein 5.9L, Albumin 2.3L, Globulin 3.6, Albumin/Globulin Ratio 0.6L Height (Feet): 5 Height (Inches): 8.00 Weight (Pounds): 199 General Appearance: lethargic EENT: normal ENT inspection Neck: normal alignment Cardiovascular: normal peripheral pulses, normal rate, regular rhythm Respiratory/Chest: chest wall non-tender, lungs clear, normal breath sounds Abdomen: normal bowel sounds, non tender, soft Extremities: normal inspection Edema: no edema noted Arm (L), no edema noted Arm (R), no edema noted Leg (L), no edema noted Leg (R), no edema noted Pedal (L), no edema noted Pedal (R), no edema noted Generalized Neurologic: responsive, motor weakness Skin: normal pigmentation, warm/dry PIETER GAUTHIER Jan 09, 2017 13:39
--- NOTE | 2017-01-09 14:48 | Pulmonology Progress Note ---
Assessment/Plan Problems: (1) Alcoholic hepatitis (2) Transaminitis (3) HTN (hypertension) (4) GERD (gastroesophageal reflux disease) (5) Fatty liver Assessment/Plan improving check electrolytes symptomatic treatment psych evaluation Subjective ROS Limited/Unobtainable: No HEENT: Repors: no symptoms Respiratory: Reports: no symptoms Allergies: Coded Allergies: IBUPROFEN (Verified Allergy, Severe, Anaphylaxis, 06/12/16) swollen face and lips NSAIDS (NON-STEROIDAL ANTI-INFLAMMA (Verified Allergy, Severe, Anaphylaxis , 06/12/16) swollen face and lips Uncoded Allergies: NSAIDS include Ibuprofen (Adverse Reaction, Severe, Anaphylaxis, 06/11/16) Swollen face and lip Objective Last 24 Hour Vital Signs Date Time Temp Pulse Resp B/P (MAP) Pulse Ox O2 Delivery O2 Flow Rate FiO2 01/09/17 12:00 98.1 99 21 98/69 95 Room Air 01/09/17 08:00 99.0 107 20 120/52 97 Room Air 01/09/17 07:25 98.2 01/09/17 06:00 82 121/65 01/09/17 04:00 98.2 82 21 121/65 93 Room Air 01/09/17 00:00 97.7 94 22 101/53 96 Room Air 01/08/17 22:00 75 105/65 01/08/17 20:00 97.9 75 21 130/82 92 Room Air 01/08/17 16:00 97.2 86 18 114/75 97 Room Air General Appearance: WD/WN HEENT: normocephalic, atraumatic Respiratory/Chest: chest wall non-tender, no respiratory distress Breasts: no masses Cardiovascular: normal peripheral pulses Abdomen: normal bowel sounds, soft, non tender Genitourinary: normal external genitalia Extremities: no cyanosis, no clubbing Skin: no rash Laboratory Tests 01/09/17 07:00: White Blood Count 5.3, Red Blood Count 2.81L, Hemoglobin 10.5L, Hematocrit 31.5L , Mean Corpuscular Volume 112H, Mean Corpuscular Hemoglobin 37.2H, Mean Corpuscular Hemoglobin Concent 33.2, Red Cell Distribution Width 16.9H, Platelet Count 323, Mean Platelet Volume 6.0L, Neutrophils (%) (Auto) , Lymphocytes (%) (Auto) , Monocytes (%) (Auto) , Eosinophils (%) (Auto) , Basophils (%) (Auto) , Differential Total Cells Counted 100, Neutrophils % ( Manual) 37L, Lymphocytes % (Manual) 43, Monocytes % (Manual) 14H, Eosinophils % (Manual) 4H, Basophils % (Manual) 1, Band Neutrophils 1, Platelet Estimate Adequate, Platelet Morphology Normal, Hypochromasia 1+, Anisocytosis 1+, Microcytosis 1+, Stomatocytes 1+, Sodium Level 140, Potassium Level 3.7, Chloride Level 104, Carbon Dioxide Level 27, Anion Gap 9, Blood Urea Nitrogen 10 , Creatinine 0.6, Estimat Glomerular Filtration Rate > 60, Glucose Level 82, Calcium Level 8.3L, Total Bilirubin 0.3, Aspartate Amino Transf (AST/SGOT) 61H, Alanine Aminotransferase (ALT/SGPT) 26, Alkaline Phosphatase 103, Total Protein 5.9L, Albumin 2.3L, Globulin 3.6, Albumin/Globulin Ratio 0.6L Current Medications Medications (Trade) Dose Ordered Sig/Payam Route PRN Reason Start Time Stop Time Status Last Admin Dose Admin Acetaminophen (Tylenol) 650 mg Q4H PRN ORAL fever 01/06/17 06:45 02/05/17 06:44 Al Hydroxide/Mg Hydroxide (Mylanta II) 30 ml Q6H PRN ORAL dyspepsia 01/06/17 06:45 02/05/17 06:44 Dextrose (Dextrose 50%) STAT PRN IV Hypoglycemia 01/06/17 06:45 02/05/17 06:44 Diazepam (Valium) 10 mg Q4H PRN ORAL anxiety 01/06/17 06:45 01/13/17 06:44 01/09/17 13:18 Fluoxetine HCl (PROzac) 20 mg DAILY ORAL 01/06/17 09:00 02/05/17 08:59 01/09/17 09:13 Gabapentin (Neurontin) 300 mg THREE TIMES A DAY ORAL 01/06/17 18:00 02/05/17 17:59 01/09/17 13:18 Hydroxyzine HCl (Atarax) 50 mg BID ORAL 01/07/17 09:00 02/06/17 08:59 01/09/17 09:13 Lorazepam (Ativan 2mg/ml 1ml) 0.5 mg Q4H PRN IV For Anxiety 01/06/17 06:45 01/13/17 06:44 Mirtazapine (Remeron) 15 mg BEDTIME ORAL 01/09/17 21:00 02/08/17 20:59 Morphine Sulfate (Morphine Sulfate) 2 mg Q4H PRN IV Moderate Pain (Pain Scale 4-6) 01/08/17 13:00 01/15/17 12:59 Morphine Sulfate (Morphine Sulfate) 4 mg Q4H PRN IVP Severe Pain (Pain Scale 7-10) 01/08/17 13:00 01/15/17 12:59 01/09/17 10:58 Ondansetron HCl (Zofran) 4 mg Q6H PRN IVP Nausea & Vomiting 01/06/17 06:45 02/05/17 06:44 01/09/17 03:00 Polyethylene Glycol (Miralax) 17 gm HSPRN PRN ORAL Constipation 01/06/17 06:45 02/05/17 06:44 Propranolol HCl (Inderal) 10 mg Q8HR ORAL 01/08/17 22:00 02/07/17 21:59 Ranitidine HCl (Zantac) 150 mg BEDTIME ORAL 01/06/17 21:00 02/05/17 20:59 01/07/17 20:22 Thiamine HCl (Vitamin B1) 100 mg DAILY ORAL 01/07/17 09:00 02/06/17 08:59 01/09/17 09:13 Zolpidem Tartrate (Ambien) 5 mg HSPRN PRN ORAL Insomnia 01/06/17 06:45 01/13/17 06:44 DAVID CLARKE Jan 09, 2017 14:48
[2017-01-09 16:00] VITALS: BP 111/41
--- NOTE | 2017-01-09 17:43 | Infectious Diseases Prog Note ---
Assessment/Plan Problems: (1) lethargy, r/o toxic-methabolic or hepathic encephalopathy Assessment & Plan: improving , blood culture is negative which rule out sepsis , monitor WBC (2) Transaminitis Assessment & Plan: SUSPECT DUE TO FATTY LIVER AND ALCHOL ABUSE, WILL ORDER CMV pcr, AND MONOSPOT TO RULE OUT INFECTIOUS ETIOLOGY (3) Generalized weakness Assessment & Plan: CONSULT pt/ot (4) Fatty liver Assessment & Plan: recommend diet and exercise (5) Hidradenitis suppurativa Assessment & Plan: was treated with antibiotics and now looks much better, continue local wound care, apply local nystatin powder as needed, consult wound care Subjective ROS Limited/Unobtainable: Yes Allergies: Coded Allergies: IBUPROFEN (Verified Allergy, Severe, Anaphylaxis, 06/12/16) swollen face and lips NSAIDS (NON-STEROIDAL ANTI-INFLAMMA (Verified Allergy, Severe, Anaphylaxis , 06/12/16) swollen face and lips Uncoded Allergies: NSAIDS include Ibuprofen (Adverse Reaction, Severe, Anaphylaxis, 06/11/16) Swollen face and lip Objective Vital Signs Last 24 Hour Vital Signs Date Time Temp Pulse Resp B/P (MAP) Pulse Ox O2 Delivery O2 Flow Rate FiO2 01/09/17 16:00 97.7 76 21 111/41 96 Room Air 01/09/17 14:00 76 100/62 01/09/17 12:00 98.1 99 21 98/69 95 Room Air 01/09/17 08:00 99.0 107 20 120/52 97 Room Air 01/09/17 07:25 98.2 01/09/17 06:00 82 121/65 01/09/17 04:00 98.2 82 21 121/65 93 Room Air 01/09/17 00:00 97.7 94 22 101/53 96 Room Air 01/08/17 22:00 75 105/65 01/08/17 20:00 97.9 75 21 130/82 92 Room Air Height (Feet): 5 Height (Inches): 8.00 Weight (Pounds): 199 General Appearance: WD/WN, no acute distress HEENT: normocephalic, atraumatic, anicteric Respiratory/Chest: chest wall non-tender, lungs clear, normal breath sounds, no respiratory distress Cardiovascular: normal peripheral pulses, normal rate, regular rhythm, no gallop/murmur, no JVD Abdomen: normal bowel sounds, soft, non tender, no organomegaly, non distended Extremities: no cyanosis, no clubbing Skin: no rash, no lesions, ulcers Neurologic/Psychiatric: alert Laboratory Tests Test 01/09/17 07:00 White Blood Count 5.3 K/UL (4.8-10.8) Red Blood Count 2.81 M/UL (4.20-5.40) L Hemoglobin 10.5 G/DL (12.0-16.0) L Hematocrit 31.5 % (37.0-47.0) L Mean Corpuscular Volume 112 FL (80-99) H Mean Corpuscular Hemoglobin 37.2 PG (27.0-31.0) H Mean Corpuscular Hemoglobin Concent 33.2 G/DL (32.0-36.0) Red Cell Distribution Width 16.9 % (11.6-14.8) H Platelet Count 323 K/UL (150-450) Mean Platelet Volume 6.0 FL (6.5-10.1) L Neutrophils (%) (Auto) % (45.0-75.0) Lymphocytes (%) (Auto) % (20.0-45.0) Monocytes (%) (Auto) % (1.0-10.0) Eosinophils (%) (Auto) % (0.0-3.0) Basophils (%) (Auto) % (0.0-2.0) Differential Total Cells Counted 100 Neutrophils % (Manual) 37 % (45-75) L Lymphocytes % (Manual) 43 % (20-45) Monocytes % (Manual) 14 % (1-10) H Eosinophils % (Manual) 4 % (0-3) H Basophils % (Manual) 1 % (0-2) Band Neutrophils 1 % (0-8) Platelet Estimate Adequate Platelet Morphology Normal Hypochromasia 1+ Anisocytosis 1+ Microcytosis 1+ Stomatocytes 1+ Sodium Level 140 mEQ/L (135-145) Potassium Level 3.7 mEQ/L (3.4-4.9) Chloride Level 104 mEQ/L (98-107) Carbon Dioxide Level 27 mEQ/L (20-30) Anion Gap 9 (5-15) Blood Urea Nitrogen 10 mg/dL (7-23) Creatinine 0.6 mg/dL (0.5-0.9) Estimat Glomerular Filtration Rate > 60 mL/min (>60) Glucose Level 82 mg/dL (74-106) Calcium Level 8.3 mg/dL (8.6-10.2) L Total Bilirubin 0.3 mg/dL (0.0-1.2) Aspartate Amino Transf (AST/SGOT) 61 U/L (5-40) H Alanine Aminotransferase (ALT/SGPT) 26 U/L (3-33) Alkaline Phosphatase 103 U/L (35-104) Total Protein 5.9 g/dL (6.6-8.7) L Albumin 2.3 g/dL (3.5-5.2) L Globulin 3.6 g/dL Albumin/Globulin Ratio 0.6 (1.0-2.7) L Current Medications Medications (Trade) Dose Ordered Sig/Payam Route PRN Reason Start Time Stop Time Status Last Admin Dose Admin Acetaminophen (Tylenol) 650 mg Q4H PRN ORAL fever 01/06/17 06:45 02/05/17 06:44 Al Hydroxide/Mg Hydroxide (Mylanta II) 30 ml Q6H PRN ORAL dyspepsia 01/06/17 06:45 02/05/17 06:44 Dextrose (Dextrose 50%) STAT PRN IV Hypoglycemia 01/06/17 06:45 02/05/17 06:44 Diazepam (Valium) 10 mg Q4H PRN ORAL anxiety 01/06/17 06:45 01/13/17 06:44 01/09/17 17:32 Fluoxetine HCl (PROzac) 20 mg DAILY ORAL 01/06/17 09:00 02/05/17 08:59 01/09/17 09:13 Gabapentin (Neurontin) 300 mg THREE TIMES A DAY ORAL 01/06/17 18:00 02/05/17 17:59 01/09/17 17:32 Hydroxyzine HCl (Atarax) 50 mg BID ORAL 01/07/17 09:00 02/06/17 08:59 01/09/17 17:32 Lorazepam (Ativan 2mg/ml 1ml) 0.5 mg Q4H PRN IV For Anxiety 01/06/17 06:45 01/13/17 06:44 Mirtazapine (Remeron) 15 mg BEDTIME ORAL 01/09/17 21:00 02/08/17 20:59 Morphine Sulfate (Morphine Sulfate) 2 mg Q4H PRN IV Moderate Pain (Pain Scale 4-6) 01/08/17 13:00 01/15/17 12:59 Morphine Sulfate (Morphine Sulfate) 4 mg Q4H PRN IVP Severe Pain (Pain Scale 7-10) 01/08/17 13:00 01/15/17 12:59 01/09/17 15:03 Ondansetron HCl (Zofran) 4 mg Q6H PRN IVP Nausea & Vomiting 01/06/17 06:45 02/05/17 06:44 01/09/17 03:00 Polyethylene Glycol (Miralax) 17 gm HSPRN PRN ORAL Constipation 01/06/17 06:45 02/05/17 06:44 Propranolol HCl (Inderal) 10 mg Q8HR ORAL 01/08/17 22:00 02/07/17 21:59 Ranitidine HCl (Zantac) 150 mg BEDTIME ORAL 01/06/17 21:00 02/05/17 20:59 01/07/17 20:22 Thiamine HCl (Vitamin B1) 100 mg DAILY ORAL 01/07/17 09:00 02/06/17 08:59 01/09/17 09:13 Zolpidem Tartrate (Ambien) 5 mg HSPRN PRN ORAL Insomnia 01/06/17 06:45 01/13/17 06:44 Brandan Rubin M.D. Jan 09, 2017 17:43
--- NOTE | 2017-01-09 18:35 | Wound Care Consultation ---
Wound Assessment Wound Assessment : Wound Number: 1 Wound Present on Admission: Yes New Wound: No Status Change of Wound: No Wound Location Body Site Modif: left, right Wound Location Body Site: perineal area - and right axilla Wound Type: other - hydradenitis Mine Test: Does not Mine Wound Thickness: Full Thickness Percent of Wound [place]/Red: 100 Wound Drainage Description: Serosanguineous Wound Drainage Amount: Moderate Wound Drainage Odor: None/Absent Tissue Surrounding Wound: Intact Wound General Appearance: Reddened, Draining Wound Comment #1 Left and right groin area hidradenitis #2 Right armpit hidradenitis #3 Abdominal folds hidradenitis Recommendation -Cleanse with saline pat dry apply Adaptic cover with 4x4 secure with bordered gauze daily and PRN soiled/dislodged -Keep clean and dry -Optimize nutrition -Assess and f/u with MD for any changes FER MURPHY RN Jan 09, 2017 18:35
[2017-01-09] MEDS ORDERED: NEURONTIN600 MG ORAL (18:42)
[2017-01-09] MEDS ORDERED: HYDROXYZINE HCL50 M1 PO (18:42)
[2017-01-09] MEDS ORDERED: VITAMIN B-1100 MG ORAL (18:43)
[2017-01-09] MEDS ORDERED: MIRTAZAPINE15 MG ORAL (18:43)
--- NOTE | 2017-01-09 19:09 | Cardiology Progress Note ---
Assessment/Plan Assessment/Plan 1. Hypotension, likely due to hypovolemia as she was not tolerating PO, also could be due to pain management, continue hydration. 2. Chronic liver disease 3. Dyslipidemia, with low HDL levels Subjective Subjective No cardiac events. Denies chest pain or SOB. Objective Last 24 Hour Vital Signs Date Time Temp Pulse Resp B/P (MAP) Pulse Ox O2 Delivery O2 Flow Rate FiO2 01/09/17 16:00 97.7 76 21 111/41 96 Room Air 01/09/17 14:00 76 100/62 01/09/17 12:00 98.1 99 21 98/69 95 Room Air 01/09/17 08:00 99.0 107 20 120/52 97 Room Air 01/09/17 07:25 98.2 01/09/17 06:00 82 121/65 01/09/17 04:00 98.2 82 21 121/65 93 Room Air 01/09/17 00:00 97.7 94 22 101/53 96 Room Air 01/08/17 22:00 75 105/65 01/08/17 20:00 97.9 75 21 130/82 92 Room Air Intake and Output 01/09/17 01/10/17 19:00 07:00 Intake Total 480 ml Balance 480 ml Intake Oral 480 ml # Voids 2 Laboratory Tests Test 01/09/17 07:00 White Blood Count 5.3 K/UL (4.8-10.8) Red Blood Count 2.81 M/UL (4.20-5.40) L Hemoglobin 10.5 G/DL (12.0-16.0) L Hematocrit 31.5 % (37.0-47.0) L Mean Corpuscular Volume 112 FL (80-99) H Mean Corpuscular Hemoglobin 37.2 PG (27.0-31.0) H Mean Corpuscular Hemoglobin Concent 33.2 G/DL (32.0-36.0) Red Cell Distribution Width 16.9 % (11.6-14.8) H Platelet Count 323 K/UL (150-450) Mean Platelet Volume 6.0 FL (6.5-10.1) L Neutrophils (%) (Auto) % (45.0-75.0) Lymphocytes (%) (Auto) % (20.0-45.0) Monocytes (%) (Auto) % (1.0-10.0) Eosinophils (%) (Auto) % (0.0-3.0) Basophils (%) (Auto) % (0.0-2.0) Differential Total Cells Counted 100 Neutrophils % (Manual) 37 % (45-75) L Lymphocytes % (Manual) 43 % (20-45) Monocytes % (Manual) 14 % (1-10) H Eosinophils % (Manual) 4 % (0-3) H Basophils % (Manual) 1 % (0-2) Band Neutrophils 1 % (0-8) Platelet Estimate Adequate Platelet Morphology Normal Hypochromasia 1+ Anisocytosis 1+ Microcytosis 1+ Stomatocytes 1+ Sodium Level 140 mEQ/L (135-145) Potassium Level 3.7 mEQ/L (3.4-4.9) Chloride Level 104 mEQ/L (98-107) Carbon Dioxide Level 27 mEQ/L (20-30) Anion Gap 9 (5-15) Blood Urea Nitrogen 10 mg/dL (7-23) Creatinine 0.6 mg/dL (0.5-0.9) Estimat Glomerular Filtration Rate > 60 mL/min (>60) Glucose Level 82 mg/dL (74-106) Calcium Level 8.3 mg/dL (8.6-10.2) L Total Bilirubin 0.3 mg/dL (0.0-1.2) Aspartate Amino Transf (AST/SGOT) 61 U/L (5-40) H Alanine Aminotransferase (ALT/SGPT) 26 U/L (3-33) Alkaline Phosphatase 103 U/L (35-104) Total Protein 5.9 g/dL (6.6-8.7) L Albumin 2.3 g/dL (3.5-5.2) L Globulin 3.6 g/dL Albumin/Globulin Ratio 0.6 (1.0-2.7) L Objective HEENT: Atraumatic and normocephalic. Anicteric. Pupils are equal, round, and reactive to light and accommodation. There is significant pallor. NECK: JVP is about 8 to 10 cm. Bilateral carotid bruits. CARDIOVASCULAR: Normal S1 and S2. Regular rate and rhythm. No murmurs, gallops, or rubs. PMI is at fourth intercostal space in the midclavicular line. LUNGS: Bibasilar crackles. ABDOMEN: Soft, nontender, and nondistended. No hepatosplenomegaly. Positive bowel sounds. EXTREMITIES: No evidence of edema, clubbing, or cyanosis. MARYA LOYOLA Jan 09, 2017 19:09
[2017-01-09 20:00] VITALS: BP 109/66
[2017-01-09] MEDS ORDERED: LORazepam Inj 2mg/ml 1ml IV ONE (22:00)
--- NOTE | 2017-01-10 09:35 | Diagnostic Imaging Report ---
APPROVED REPORT CPT Code: 52850 Present Symptoms Comments: Pain BILATERAL: Imaging reveals a patent deep venous system bilaterally. There is no evidence of thrombus within the femoral, popliteal or tibial segments. The greater saphenous veins are also within normal limits. Doppler indicates normal spontaneous flow within these segments.
--- NOTE | 2017-01-12 11:11 | Discharge Summary ---
Discharge Summary Hospital Course Date of Admission Jan 05, 2017 at 22:16 Date of Discharge Jan 10, 2017 at 00:20 Admitting Diagnosis weakness TOYIN Trevino is a 41 year old female who was admitted on Jan 05, 2017 at 22:16 for Weakness Hospital Course [id number] Discharge Discharge Disposition Patient was discharged to SNF/Subacute Facility(03) Discharge Diagnoses: Rachael Kellogg NP Jan 12, 2017 11:11
--- NOTE | 2017-01-13 07:33 | Discharge Summary 2 SIG ---
DATE OF ADMISSION: 01/05/2017 DATE OF DISCHARGE: 01/10/2017 CONSULTANTS: 1. Ritchie Melendez M.D. 2. Brandan Rubin M.D. 3. Bushra Lai M.D. 4. Jeanne Swenson M.D. 5. Santos Jones M.D. 6. Stewart Art M.D. 7. Biju Lee M.D. Brief Hospital Course: The patient is a 41-year-old female from [facility], presented with abdominal pain, anxiety, and weakness. The patient was in a rehabilitation facility and had low blood pressure. She was having abdominal pain for 2 weeks without associated nausea, vomiting, fever, chills, or diarrhea. On evaluation at ED, lab work showed mild transaminitis. Lipase was normal. Urinalysis showed 2+ leukocyte esterase. The patient admitted to [facility] prior to admission. She was given symptomatic treatment and given pain management, morphine 2 mg q.4 h. p.r.n. She underwent abdominal ultrasound, which showed hepatomegaly with fatty infiltration. Hepatitis screen from prior admission was negative. She had episodes of hypotension, which was assessed to be due to hypovolemia as she was not tolerating p.o. She was given IV hydration. She had generalized anxiety disorder and was given Ativan p.r.n. with Neurontin 300 mg b.i.d. and was continued on Prozac 20 mg daily. She came in with hydradenitis on bilateral groin, armpits, and abdominal folds. She was given local wound care and local nystatin powder p.r.n. She underwent physical therapy and occupational therapy and was eventually discharged to [facility]. FINAL DIAGNOSES: 1. Lethargy with acute toxic metabolic encephalopathy. 2. Hypotension due to hypovolemia. 3. Dyslipidemia. 4. Elevated liver transaminases. 5. Fatty liver. 6. Alcoholic hepatitis. 7. Anemia. 8. Generalized anxiety disorder. 9. Abdominal pain. 10. Hidradenitis suppurativa, present on admission. DISPOSITION: The patient was discharged to [facility]. DISCHARGE MEDICATIONS: Refer to medication list. Franky Olvera D.O. I have been assigned to dictate discharge summary on this account and I was not involved in the patient's management. Rachael Kellogg N.P. DR: JODY JOB#: [id number] CC: RONDA
== END 2017-01-10 00:20 | DRG 438 ==
LOC: EDBD 19:16 → EMR 20:00 → EDBEDREQ 20:42 → 3E 22:16 → EDBEDREQ 23:17 → 3E 01-06 00:22 → 4E 01-08 10:59
DX: K85.90 Acute pancreatitis without necrosis or infection, unspecified (principal); G92 Toxic encephalopathy; E43 Unspecified severe protein-calorie malnutrition; I95.89 Other hypotension; D61.818 Other pancytopenia; K70.10 Alcoholic hepatitis without ascites; K76.0 Fatty (change of) liver, not elsewhere classified; E66.01 Morbid (severe) obesity due to excess calories; N39.0 Urinary tract infection, site not specified; R10.9 Unspecified abdominal pain; D64.9 Anemia, unspecified; E86.1 Hypovolemia; K21.9 Gastro-esophageal reflux disease without esophagitis; R74.0 Nonspecific elevation of levels of transaminase and lactic acid dehydrogenase [LDH]; E78.5 Hyperlipidemia, unspecified; F41.1 Generalized anxiety disorder; L73.2 Hidradenitis suppurativa; Z88.6 Allergy status to analgesic agent; R53.1 Weakness; F10.10 Alcohol abuse, uncomplicated; M51.36 Other intervertebral disc degeneration, lumbar region; M47.896 Other spondylosis, lumbar region
CPT/HCPCS: 36415; 71010; 76700; 80048; 80053; 80061; 80300; 81003; 82607; 82746; 83690; 84443; 85007; 85025; 87081; 93970; 97803; 99285; J2405

== ENCOUNTER 2017-01-15 21:05 | Emergency (ER) | payer MEDICARE, OTHER ==
[~2017-01-15] VITALS: Ht 175.3 cm; Wt 85.7 kg
[2017-01-15 21:04] VITALS: BP 90/60
[~2017-01-15 21:05] MED LIST changes: +HIBICLENS118 ML TP; +HYDROXYZINE HCL50 M1 PO; +MIRTAZAPINE15 MG ORAL; +NEURONTIN600 MG ORAL; +POTASSIUM CHLOR8 ME2 PO; +VITAMIN B-1100 MG ORAL
[2017-01-15] MEDS ORDERED: Norco 5mg/325mg tab ONE (22:17)
--- NOTE | 2017-01-15 22:19 | Emergency Room Report ---
History of Present Illness General Chief Complaint: Back Pain-No Injury Source: Patient, Medical Record Present Illness HPI Is a 41-year-old female who had a history of alcohol abuse and alcohol pancreatitis and hepatitis. She also has history of chronic back pain and extremity pain. She is currently in a rehabilitation/residential. She presents with chief complaint of lower back pain. No trauma. Said the pain is 10 out of 10. Worse with walking. According to the nursing metal fabrication supervisor at the residential, she is walking around a resting nursing staff for pain medication. She was told that she's only get scheduled medication. She asked to be sent to the hospital. She was admitted here about a week ago. At that time, initially her LFT was slightly elevated. Ultrasound unremarkable. LFT normal eyes. She also had DVT study of bilateral lower extremity which were negative. In June, she had MRI of her spine and it only showed minimal degenerative changes of the lumbar spine. No impingement. Patient has no trauma. No incontinence of bowel or urine. Denies any other complaint. Patient said she can't walk but she is walking around without any difficulty. Allergies: Coded Allergies: IBUPROFEN (Verified Allergy, Severe, Anaphylaxis, 06/12/16) swollen face and lips NSAIDS (NON-STEROIDAL ANTI-INFLAMMA (Verified Allergy, Severe, Anaphylaxis , 06/12/16) swollen face and lips Uncoded Allergies: NSAIDS include Ibuprofen (Adverse Reaction, Severe, Anaphylaxis, 06/11/16) Swollen face and lip Patient History Past Medical History: see triage record, old chart reviewed Past Surgical History: other Pertinent Family History: none Social History: Denies: smoking Now: No Immunizations: other Reviewed Nursing Documentation: PMH: Agreed, PSxH: Agreed Nursing Documentation-PMH Past Medical History: No History, Except For Hx Hypertension: Yes - muscle weakness Hx Cancer: No Hx Gastrointestinal Problems: Yes - sepsis, GERD, Pancretits History Of Psychiatric Problem: Yes - depression, anxiety Hx Neurological Problems: Yes - anxiety disorder Review of Systems Eye: Denies: eye pain, blurred vision ENT: Denies: ear pain, nose congestion, throat swelling Respiratory: Denies: cough, shortness of breath Cardiovascular: Denies: chest pain, palpitations Gastrointestinal: Denies: abdominal pain, diarrhea, nausea, vomiting Musculoskeletal: Reports: back pain, Denies: joint pain Skin: Denies: rash Neurological: Denies: headache, numbness Endocrine: Denies: increased thirst, increased urine Hematologic/Lymphatic: Denies: easy bruising All Other Systems: negative except mentioned in HPI Physical Exam Vital Signs Date Time Temp Pulse Resp B/P (MAP) Pulse Ox O2 Delivery O2 Flow Rate FiO2 01/15/17 20:50 97.3 01/15/17 20:50 92 18 90/60 100 Room Air vitals unremarkable Sp02 EP Interpretation: reviewed, normal General Appearance: well appearing, no apparent distress, alert, other - Patient appear to be sedated from opiates. Head: normocephalic, atraumatic Eyes: bilateral eye PERRL, bilateral eye EOMI ENT: hearing grossly normal, normal pharynx Neck: full range of motion, supple, no meningismus Respiratory: chest non-tender, lungs clear, normal breath sounds Cardiovascular #1: regular rate, rhythm, no murmur Gastrointestinal: normal bowel sounds, non tender, no mass, no organomegaly, no bruit, non-distended Musculoskeletal: back normal - Refuse tenderness but no step-off or deformity. , gait/station normal, normal range of motion, other - Bilateral lower extremity pain with palpation. No trauma. Neurologic: alert, oriented x3 Psychiatric: mood/affect normal Skin: warm/dry Medical Decision Making Diagnostic Impression: Primary Impression: Back pain Qualified Codes: M54.5 - Low back pain; G89.29 - Other chronic pain Additional Impression: Opioid dependence Qualified Codes: F11.20 - Opioid dependence, uncomplicated ER Course Patient presents with chronic pain. I see no need for x-rays or any further study. She wanted x-ray for back. She has no trauma. She had an MRI about 6 months ago. She is leaning back on her stretcher with her legs crossed talking on the phone. She does not appear to be in any distress. She called nursing metal fabrication supervisor at the residential. She was complaining that Dr. Olvera was not here to talk to her. I explained to her and the nursing metal fabrication supervisor that is not the protocol. I contacted Dr. Olvera with the information. I see no need for x- ray of her legs also. She has no trauma. She had recent ultrasound was negative for DVT bilaterally. I offered her a Poteet and she said "I don't want no fucking Poteet!" She walked from her stretcher to where I am sitting multiple times complaining of lack of treatment for her pain. I am uncomfortable giving this patient parenteral pain medication because of her alcohol history and opioid dependency. I see no evidence of cauda equina syndrome, spinal after abscess or neoplastic process. No evidence of DVT clinically. We'll discharge her back to the residential. Last Vital Signs Date Time Temp Pulse Resp B/P (MAP) Pulse Ox O2 Delivery O2 Flow Rate FiO2 01/15/17 21:04 97.3 18 90/60 100 Room Air 01/15/17 20:50 92 Status: unchanged Disposition: XFER SNF Condition: Stable Patient Instructions: Back Pain, Adult Additional Instructions: Followup with your Dr. in 7 days. Return if symptom worsen. YAZMIN HERBERT M.D. Jan 15, 2017 22:19
[2017-01-15 22:21] VITALS: BP 101/59
== END 2017-01-15 22:21 ==
LOC: EDBD 21:05 → EMR 21:10
DX: M54.5 Low back pain (principal); G89.29 Other chronic pain; I10 Essential (primary) hypertension; F32.9 Major depressive disorder, single episode, unspecified; F41.9 Anxiety disorder, unspecified; F11.20 Opioid dependence, uncomplicated; K21.9 Gastro-esophageal reflux disease without esophagitis; Z88.6 Allergy status to analgesic agent
CPT/HCPCS: 99283

== ENCOUNTER 2017-05-05 14:19 | Inpatient (IN) | payer MEDICARE, OTHER ==
[~2017-05-05] VITALS: Ht 175.3 cm; Wt 90.7 kg
[2017-05-05] MEDS ORDERED: Morphine Sulfate 2mg/ml Inj IVP ONE ×3 (15:00→21:15)
[2017-05-05 16:21] LABS: HEMOGLOBIN 10.3 G/DL (12.0-16.0); MEAN CORPUSCULAR VOLUME 111 FL (80-99); PLATELET COUNT 253 K/UL (150-450); RED BLOOD COUNT 2.98 M/UL (4.20-5.40); RED CELL DISTRIBUTION WIDTH 17.5 % (11.6-14.8)
[2017-05-05 16:38] LABS: ANION GAP 16 mmol/L (5-15); BLOOD UREA NITROGEN 7 mg/dL (7-18); CALCIUM 8.2 MG/DL (8.5-10.1); CARBON DIOXIDE 20 MMOL/L (21-32); CHLORIDE 98 MMOL/L (98-107); CREATININE 1.2 MG/DL (0.55-1.30); SODIUM 133 MMOL/L (136-145)
[2017-05-05 16:48] LABS: ALANINE AMINOTRANSFERASE 128 U/L (12-78); ALBUMIN 2.7 G/DL (3.4-5.0); ALBUMIN/GLOBULIN RATIO 0.5 (1.0-2.7); ALKALINE PHOSPHATASE 201 U/L (46-116); ASPARTATE AMINO TRANSFERASE 240 U/L (15-37); BILIRUBIN,TOTAL 1.3 MG/DL (0.2-1.0)
[2017-05-05 17:19] LABS: BILIRUBIN,DIRECT 0.7 MG/DL (0.0-0.3)
[2017-05-05 17:22] LABS: APPEARANCE,URINE CLEAR; BILIRUBIN, URINE 2+ (NEGATIVE); COLOR,URINE BROWN; GLUCOSE, URINE (UA) NEGATIVE (NEGATIVE); KETONES,URINE 2+ (NEGATIVE); LEUKOCYTE ESTERASE ,URINE 3+ (NEGATIVE); NITRITE,URINE POSITIVE (NEGATIVE); PH,URINE 5 (4.5-8.0); PROTEIN,URINE 2+ (NEGATIVE); UROBILINOGEN,URINE 12 MG/DL (0.0-1.0)
[2017-05-05 17:35] VITALS: BP 124/75
--- NOTE | 2017-05-05 17:35 | Emergency Room Report ---
History of Present Illness General Chief Complaint: General Complaint Present Illness HPI 41-year-old female presents to the emergency department complaining of 10 out of 10 in severity right upper quadrant abdominal pain x2 days. She reports acute onset of vomiting since last night she denies blood in the vomit she denies blood in the stool or black tarry stools. Patient reports long-standing history of alcoholism and states that she drinks 2 bottles of wine per day. Reports history of pancreatitis in the past. Denies fevers or chills. She denies rashes, headache. bruises or easy bleeding. Denies CP, Palpitations, LOC , AMS, dizziness, Changes in Vision, Sensation, paresthesias, or a sudden severe headache. Denies . Denies hx of ETOH seizure/withdrawals. Allergies: Coded Allergies: IBUPROFEN (Verified Allergy, Severe, Anaphylaxis, 06/12/16) swollen face and lips NSAIDS (NON-STEROIDAL ANTI-INFLAMMA (Verified Allergy, Severe, Anaphylaxis , 06/12/16) swollen face and lips Uncoded Allergies: NSAIDS include Ibuprofen (Adverse Reaction, Severe, Anaphylaxis, 06/11/16) Swollen face and lip Patient History Past Medical History: see triage record Past Surgical History: none Pertinent Family History: none Social History: Reports: alcohol use Reviewed Nursing Documentation: PMH: Agreed, PSxH: Agreed Nursing Documentation-PMH Hx Hypertension: Yes - muscle weakness Hx Cancer: No Hx Gastrointestinal Problems: Yes - sepsis, GERD, Pancretits Hx Neurological Problems: Yes - anxiety disorder Review of Systems All Other Systems: negative except mentioned in HPI Physical Exam Vital Signs Date Time Temp Pulse Resp B/P (MAP) Pulse Ox O2 Delivery O2 Flow Rate FiO2 05/05/17 14:35 98.1 119 20 140/90 99 Room Air Sp02 EP Interpretation: reviewed, normal General Appearance: alert, GCS 15, non-toxic, mild distress Head: normocephalic, atraumatic Eyes: bilateral eye normal inspection, bilateral eye PERRL ENT: hearing grossly normal, normal voice Neck: full range of motion Respiratory: chest non-tender, lungs clear, normal breath sounds, speaking full sentences Cardiovascular #1: no edema, normal capillary refill, tachycardia Gastrointestinal: normal bowel sounds, soft, tenderness - RUQ TTP Rectal: deferred Genitourinary: no CVA tenderness Musculoskeletal: back normal, gait/station normal, normal range of motion, non- tender Neurologic: alert, oriented x3, responsive, motor strength/tone normal, sensory intact, normal gait, speech normal Skin: normal color, no rash, warm/dry, well hydrated, other - no jaundice Medical Decision Making PA Attestation Dr. Jolly is my supervising Physician whom patient management has been discussed with. Diagnostic Impression: Primary Impression: Alcoholic pancreatitis Qualified Codes: K85.20 - Alcohol induced acute pancreatitis without necrosis or infection Additional Impressions: UTI (urinary tract infection) Qualified Codes: N30.01 - Acute cystitis with hematuria Transaminitis Fatty liver ER Course 41-year-old female presents to the emergency department complaining of 10 out of 10 in severity right upper quadrant abdominal pain x2 days. She reports acute onset of vomiting since last night she denies blood in the vomit she denies blood in the stool or black tarry stools. Patient reports long-standing history of alcoholism and states that she drinks 2 bottles of wine per day. Reports history of pancreatitis in the past. Denies fevers or chills. She denies rashes, headache. bruises or easy bleeding. Denies CP, Palpitations, LOC , AMS, dizziness, Changes in Vision, Sensation, paresthesias, or a sudden severe headache. Denies . Denies hx of ETOH seizure/withdrawals. Ddx considered but are not limited to Diverticulitis, acute appy, diarrhea,UC, PUD, GE, pancreatitis, gallstone Vital signs: Pt is Tachycardic 114 BPM , pt. is afebrile H&PE are most consistent with Pancreatitis, dehydration ORDERS: -CBC: no leukocytosis, anemia noted. -CMP: Elevated LFT's and alk phos. -Serum Alcohol: < 3 -lipase: elevated 1408 -UA: nitrite positive with bacteria indicating infection. -CT Abdomen and Pelvis with IV contrast: Shows fatty liver in addition to pancreatic fat stranding indicating acute pancreatitis. Per official radiology report- Please see report for specific details. ED INTERVENTIONS: - - 1000NS, -zofran 4mg. IV -Pt placed NPO -Morphine 4mg IV -Morphine 2mg IV - Librium 50mg PO DISPOSITION: at this time pt. will be admitted to Dr. Dodson for acute pancreatitis, elevated LFTs, UTI. Dr. Dodson agreed to admit the pt. and to continue pt. care management. Labs Test 05/05/17 16:00 05/05/17 16:30 White Blood Count 5.0 K/UL (4.8-10.8) Red Blood Count 2.98 M/UL (4.20-5.40) Hemoglobin 10.3 G/DL (12.0-16.0) Hematocrit 33.0 % (37.0-47.0) Mean Corpuscular Volume 111 FL (80-99) Mean Corpuscular Hemoglobin 34.5 PG (27.0-31.0) Mean Corpuscular Hemoglobin Concent 31.2 G/DL (32.0-36.0) Red Cell Distribution Width 17.5 % (11.6-14.8) Platelet Count 253 K/UL (150-450) Mean Platelet Volume 4.3 FL (6.5-10.1) Neutrophils (%) (Auto) % (45.0-75.0) Lymphocytes (%) (Auto) % (20.0-45.0) Monocytes (%) (Auto) % (1.0-10.0) Eosinophils (%) (Auto) % (0.0-3.0) Basophils (%) (Auto) % (0.0-2.0) Differential Total Cells Counted 100 Neutrophils % (Manual) 81 % (45-75) Lymphocytes % (Manual) 9 % (20-45) Monocytes % (Manual) 10 % (1-10) Eosinophils % (Manual) 0 % (0-3) Basophils % (Manual) 0 % (0-2) Band Neutrophils 0 % (0-8) Nucleated Red Blood Cells 1 /100 WBC Platelet Estimate Adequate Platelet Morphology Normal Hypochromasia 1+ Anisocytosis 1+ Sodium Level 133 MMOL/L (136-145) Potassium Level 4.0 MMOL/L (3.5-5.1) Chloride Level 98 MMOL/L (98-107) Carbon Dioxide Level 20 MMOL/L (21-32) Anion Gap 16 mmol/L (5-15) Blood Urea Nitrogen 7 mg/dL (7-18) Creatinine 1.2 MG/DL (0.55-1.30) Estimat Glomerular Filtration Rate > 60 mL/min (>60) Glucose Level 113 MG/DL (74-106) Calcium Level 8.2 MG/DL (8.5-10.1) Total Bilirubin 1.3 MG/DL (0.2-1.0) Direct Bilirubin 0.7 MG/DL (0.0-0.3) Aspartate Amino Transf (AST/SGOT) 240 U/L (15-37) Alanine Aminotransferase (ALT/SGPT) 128 U/L (12-78) Alkaline Phosphatase 201 U/L (46-116) Total Protein 8.3 G/DL (6.4-8.2) Albumin 2.7 G/DL (3.4-5.0) Globulin 5.6 g/dL Albumin/Globulin Ratio 0.5 (1.0-2.7) Lipase 1408 U/L (73-393) Urine Color Brown Urine Appearance Clear Urine pH 5 (4.5-8.0) Urine Specific [place] 1.025 (1.005-1.035) Urine Protein 2+ (NEGATIVE) Urine Glucose (UA) Negative (NEGATIVE) Urine Ketones 2+ (NEGATIVE) Urine Occult Blood 2+ (NEGATIVE) Urine Nitrite Positive (NEGATIVE) Urine Bilirubin 2+ (NEGATIVE) Urine Ictotest Negative Urine Urobilinogen 12 MG/DL (0.0-1.0) Urine Leukocyte Esterase 3+ (NEGATIVE) Urine RBC 2-4 /HPF (0 - 2) Urine WBC 10-15 /HPF (0 - 2) Urine Squamous Epithelial Cells Few /LPF (NONE/OCC) Urine Bacteria Many /HPF (NONE) Urine HCG, Qualitative Negative CT/MRI/US Diagnostic Results CT/MRI/US Diagnostic Results : Imaging Test Ordered: CT Abdomen and Pelvis with IV contrast Impression : Shows fatty liver in addition to pancreatic fat stranding indicating acute pancreatitis. Per official radiology report- Please see report for specific details. Last Vital Signs Date Time Temp Pulse Resp B/P (MAP) Pulse Ox O2 Delivery O2 Flow Rate FiO2 05/05/17 14:35 98.1 119 20 140/90 99 Room Air Disposition: ADMITTED INPATIENT Condition: Serious Referrals: NON PHYSICIAN (PCP) Oksana Parker May 05, 2017 17:35
[2017-05-05] MEDS ORDERED: chlordiazePOXIDE 25mg Cap ORAL ONE (17:45)
[2017-05-05] MEDS ORDERED: cefTRIAXone 1 GM in NS 55 ML IVPB ONE (17:45)
[2017-05-05] MEDS ORDERED: NKM (17:46)
[2017-05-05 19:30] VITALS: BP 122/78
[2017-05-05 20:30] VITALS: BP 118/72
[2017-05-05] MEDS ORDERED: HYDROcodone/Acetamin 10/325 tab ORAL PRN (21:15)
[2017-05-05] MEDS: D5 1/2NS w/KCl 20mEq 1,000 ML IV SCH (22:49)
[2017-05-06] VITALS: BP 118/71
[2017-05-06 04:00] VITALS: BP 126/76
[2017-05-06] MEDS: Morphine Sulfate 2mg/ml Inj IVP PRN ×4 (04:13→20:30)
[2017-05-06 07:55] VITALS: BP 127/94
[2017-05-06 08:12] LABS: HEMATOCRIT 28.5 % (37.0-47.0); HEMOGLOBIN 9.2 G/DL (12.0-16.0); MEAN CORPUSCULAR VOLUME 111 FL (80-99); PLATELET COUNT 215 K/UL (150-450); RED BLOOD COUNT 2.58 M/UL (4.20-5.40); RED CELL DISTRIBUTION WIDTH 17.8 % (11.6-14.8); WHITE BLOOD COUNT 4.3 K/UL (4.8-10.8)
[2017-05-06 08:33] LABS: ALANINE AMINOTRANSFERASE 91 U/L (12-78); ALBUMIN 2.2 G/DL (3.4-5.0); ALBUMIN/GLOBULIN RATIO 0.5 (1.0-2.7); ALKALINE PHOSPHATASE 151 U/L (46-116); AMYLASE 110 U/L (25-115); ANION GAP 8 mmol/L (5-15); ASPARTATE AMINO TRANSFERASE 165 U/L (15-37); BLOOD UREA NITROGEN 7 mg/dL (7-18); CALCIUM 7.3 MG/DL (8.5-10.1); CARBON DIOXIDE 23 MMOL/L (21-32); CHLORIDE 102 MMOL/L (98-107); CREATININE 0.9 MG/DL (0.55-1.30); POTASSIUM 3.5 MMOL/L (3.5-5.1); SODIUM 133 MMOL/L (136-145)
[2017-05-06] MEDS: D5 1/2NS w/KCl 20mEq 1,000 ML IV SCH ×2 (09:24→18:30)
--- NOTE | 2017-05-06 11:30 | Infectious Diseases Prog Note ---
Assessment/Plan Problems: (1) Hidradenitis suppurativa Assessment & Plan: will start cefepime and clindamycin empiric coverage, send wound culture, recommend surgical eval (2) Cellulitis Assessment & Plan: of the abdominal folds ,already on antibiotics , recommend wound care consult (3) Alcoholic hepatitis Assessment & Plan: recommend GI eval, avoid hepatotoxic meds, will screen for hepatitis (4) UTI (urinary tract infection) Assessment & Plan: with gram negative rods, will start cefepime empiric coverage Subjective Allergies: Coded Allergies: IBUPROFEN (Verified Allergy, Severe, Anaphylaxis, 06/12/16) swollen face and lips NSAIDS (NON-STEROIDAL ANTI-INFLAMMA (Verified Allergy, Severe, Anaphylaxis , 06/12/16) swollen face and lips Uncoded Allergies: NSAIDS include Ibuprofen (Adverse Reaction, Severe, Anaphylaxis, 06/11/16) Swollen face and lip Objective Vital Signs Last 24 Hour Vital Signs Date Time Temp Pulse Resp B/P (MAP) Pulse Ox O2 Delivery O2 Flow Rate FiO2 05/06/17 09:44 98.2 05/06/17 07:55 98.2 102 20 127/94 99 Room Air 05/06/17 04:00 98.2 101 20 126/76 100 Room Air 05/06/17 00:00 97.7 101 20 118/71 100 Room Air 05/05/17 23:21 98.7 05/05/17 20:30 98.7 88 16 118/72 100 Room Air 05/05/17 19:30 98.6 94 18 122/78 98 Room Air 05/05/17 19:30 98.8 05/05/17 19:30 98.8 05/05/17 17:35 98.8 118 18 124/75 99 Room Air 05/05/17 14:35 98.1 119 20 140/90 99 Room Air Height (Feet): 5 Height (Inches): 9.00 Weight (Pounds): 200 Microbiology Date/Time Source Procedure Growth Status 05/05/17 16:30 Urine,Clean Catch Urine Culture - Preliminary Gram Negative Carmelo Resulted Laboratory Tests Test 05/05/17 16:00 05/05/17 16:30 05/06/17 06:50 White Blood Count 5.0 K/UL (4.8-10.8) 4.3 K/UL (4.8-10.8) L Red Blood Count 2.98 M/UL (4.20-5.40) L 2.58 M/UL (4.20-5.40) L Hemoglobin 10.3 G/DL (12.0-16.0) L 9.2 G/DL (12.0-16.0) L Hematocrit 33.0 % (37.0-47.0) L 28.5 % (37.0-47.0) L Mean Corpuscular Volume 111 FL (80-99) H 111 FL (80-99) H Mean Corpuscular Hemoglobin 34.5 PG (27.0-31.0) H 35.6 PG (27.0-31.0) H Mean Corpuscular Hemoglobin Concent 31.2 G/DL (32.0-36.0) L 32.2 G/DL (32.0-36.0) Red Cell Distribution Width 17.5 % (11.6-14.8) H 17.8 % (11.6-14.8) H Platelet Count 253 K/UL (150-450) 215 K/UL (150-450) Mean Platelet Volume 4.3 FL (6.5-10.1) L 4.7 FL (6.5-10.1) L Neutrophils (%) (Auto) % (45.0-75.0) % (45.0-75.0) Lymphocytes (%) (Auto) % (20.0-45.0) % (20.0-45.0) Monocytes (%) (Auto) % (1.0-10.0) % (1.0-10.0) Eosinophils (%) (Auto) % (0.0-3.0) % (0.0-3.0) Basophils (%) (Auto) % (0.0-2.0) % (0.0-2.0) Differential Total Cells Counted 100 Neutrophils % (Manual) 81 % (45-75) H Pending Lymphocytes % (Manual) 9 % (20-45) L Pending Monocytes % (Manual) 10 % (1-10) Eosinophils % (Manual) 0 % (0-3) Basophils % (Manual) 0 % (0-2) Band Neutrophils 0 % (0-8) Nucleated Red Blood Cells 1 /100 WBC Platelet Estimate Adequate Pending Platelet Morphology Normal Pending Hypochromasia 1+ Anisocytosis 1+ Sodium Level 133 MMOL/L (136-145) L 133 MMOL/L (136-145) L Potassium Level 4.0 MMOL/L (3.5-5.1) 3.5 MMOL/L (3.5-5.1) Chloride Level 98 MMOL/L (98-107) 102 MMOL/L (98-107) Carbon Dioxide Level 20 MMOL/L (21-32) L 23 MMOL/L (21-32) Anion Gap 16 mmol/L (5-15) H 8 mmol/L (5-15) Blood Urea Nitrogen 7 mg/dL (7-18) 7 mg/dL (7-18) Creatinine 1.2 MG/DL (0.55-1.30) 0.9 MG/DL (0.55-1.30) Estimat Glomerular Filtration Rate > 60 mL/min (>60) > 60 mL/min (>60) Glucose Level 113 MG/DL (74-106) H 104 MG/DL (74-106) Calcium Level 8.2 MG/DL (8.5-10.1) L 7.3 MG/DL (8.5-10.1) L Total Bilirubin 1.3 MG/DL (0.2-1.0) H 1.0 MG/DL (0.2-1.0) Direct Bilirubin 0.7 MG/DL (0.0-0.3) H Aspartate Amino Transf (AST/SGOT) 240 U/L (15-37) H 165 U/L (15-37) H Alanine Aminotransferase (ALT/SGPT) 128 U/L (12-78) H 91 U/L (12-78) H Alkaline Phosphatase 201 U/L (46-116) H 151 U/L (46-116) H Total Protein 8.3 G/DL (6.4-8.2) H 6.7 G/DL (6.4-8.2) Albumin 2.7 G/DL (3.4-5.0) L 2.2 G/DL (3.4-5.0) L Globulin 5.6 g/dL 4.5 g/dL Albumin/Globulin Ratio 0.5 (1.0-2.7) L 0.5 (1.0-2.7) L Lipase 1408 U/L (73-393) H 641 U/L (73-393) H Serum Alcohol < 3 mg/dL Urine Color Brown Urine Appearance Clear Urine pH 5 (4.5-8.0) Urine Specific [place] 1.025 (1.005-1.035) Urine Protein 2+ (NEGATIVE) H Urine Glucose (UA) Negative (NEGATIVE) Urine Ketones 2+ (NEGATIVE) H Urine Occult Blood 2+ (NEGATIVE) H Urine Nitrite Positive (NEGATIVE) H Urine Bilirubin 2+ (NEGATIVE) H Urine Ictotest Negative Urine Urobilinogen 12 MG/DL (0.0-1.0) H Urine Leukocyte Esterase 3+ (NEGATIVE) H Urine RBC 2-4 /HPF (0 - 2) H Urine WBC 10-15 /HPF (0 - 2) H Urine Squamous Epithelial Cells Few /LPF (NONE/OCC) Urine Bacteria Many /HPF (NONE) H Urine HCG, Qualitative Negative Amylase Level 110 U/L (25-115) Current Medications Medications (Trade) Dose Ordered Sig/Payam Route PRN Reason Start Time Stop Time Status Last Admin Dose Admin Acetaminophen (Tylenol) 650 mg Q4H PRN ORAL FEVER 05/05/17 20:15 06/04/17 20:14 Acetaminophen/ Hydrocodone Bitart (Nunda 10/325) 1 ea Q4H PRN ORAL For Moderate Pain 05/05/17 21:15 05/12/17 21:14 Ceftriaxone Sodium 1 gm/ Sodium Chloride 55 ml @ 110 mls/hr DAILY@1800 IVPB 05/06/17 18:00 05/13/17 17:59 Dextrose (Dextrose 50%) STAT PRN IV Hypoglycemia 05/05/17 21:15 06/04/17 21:14 Dextrose/ Electrolytes 1,000 ml @ 100 mls/hr Q10H IV 05/05/17 22:30 06/04/17 22:29 05/06/17 09:24 Mirtazapine (Remeron) 15 mg BEDTIME ORAL 05/06/17 21:00 06/05/17 20:59 Morphine Sulfate (Morphine Sulfate) 2 mg Q4H PRN IVP SEVERE PAIN 05/05/17 20:15 05/12/17 20:14 05/06/17 09:14 Ondansetron HCl (Zofran) 4 mg Q6H PRN IVP Nausea & Vomiting 05/05/17 21:15 06/04/17 21:14 05/06/17 09:36 Brandan Rubin M.D. May 06, 2017 11:30
[2017-05-06 11:52] VITALS: BP 124/93
[2017-05-06] MEDS: Cefepime HCl 2 GM in D5W 55 ML IVPB SCH (12:55)
--- NOTE | 2017-05-06 13:04 | History and Physical ---
History of Present Illness General Date patient seen: May 06, 2017 Reason for Hospitalization: General Complaint Present Illness HPI 41-year-old female with history of EtOH use and hidradenitis suppurativa who presents to the emergency department complaining of 10 out of 10 in severity right upper quadrant abdominal pain x2 days. She reports acute onset of vomiting since last night. She denies hematemesis or hematochezia. She does admit to drinking 2 bottles of wine per day. Denies fevers or chills. Also she does report nonhealing lesions on her right axilla from hidradenitis with foul- smelling odor. Allergies: Coded Allergies: IBUPROFEN (Verified Allergy, Severe, Anaphylaxis, 06/12/16) swollen face and lips NSAIDS (NON-STEROIDAL ANTI-INFLAMMA (Verified Allergy, Severe, Anaphylaxis , 06/12/16) swollen face and lips Uncoded Allergies: NSAIDS include Ibuprofen (Adverse Reaction, Severe, Anaphylaxis, 06/11/16) Swollen face and lip Medication History Scheduled Mirtazapine* (Remeron*), 15 MG ORAL BEDTIME, (Reported) No Known Medications* (NKM - No Known Medications*), 0 ., (Reported) Scheduled PRN Hydrocodone Bit/Acetaminophen 5-325* ([place] 5-325 Tablet*), 1 TAB ORAL Q4H PRN for For Pain, (Reported) Patient History History Provided By: Patient Healthcare decision maker Resuscitation status Advanced Directive on File Past Medical/Surgical History Past Medical/Surgical History: (1) ETOH abuse (2) Hidradenitis suppurativa Review of Systems All Other Systems: negative except mentioned in HPI Physical Exam General Appearance: WD/WN, no apparent distress HEENT: normocephalic, atraumatic Respiratory/Chest: lungs clear Cardiovascular/Chest: normal rate, regular rhythm Abdomen: non tender, soft Extremities: no edema Skin Exam: rash Last 24 Hour Vital Signs Date Time Temp Pulse Resp B/P (MAP) Pulse Ox O2 Delivery O2 Flow Rate FiO2 05/06/17 11:52 98.1 96 20 124/93 97 Room Air 05/06/17 09:44 98.2 05/06/17 07:55 98.2 102 20 127/94 99 Room Air 05/06/17 04:00 98.2 101 20 126/76 100 Room Air 05/06/17 00:00 97.7 101 20 118/71 100 Room Air 05/05/17 23:21 98.7 05/05/17 20:30 98.7 88 16 118/72 100 Room Air 05/05/17 19:30 98.6 94 18 122/78 98 Room Air 05/05/17 19:30 98.8 05/05/17 19:30 98.8 05/05/17 17:35 98.8 118 18 124/75 99 Room Air 05/05/17 14:35 98.1 119 20 140/90 99 Room Air Intake and Output 05/05/17 05/06/17 19:00 07:00 Intake Total 2305 ml Balance 2305 ml Intake Oral 450 ml IV Total 1855 ml # Voids 1 # Bowel Movements 1 Laboratory Tests Test 05/05/17 16:00 05/05/17 16:30 05/06/17 06:50 White Blood Count 5.0 K/UL (4.8-10.8) 4.3 K/UL (4.8-10.8) L Red Blood Count 2.98 M/UL (4.20-5.40) L 2.58 M/UL (4.20-5.40) L Hemoglobin 10.3 G/DL (12.0-16.0) L 9.2 G/DL (12.0-16.0) L Hematocrit 33.0 % (37.0-47.0) L 28.5 % (37.0-47.0) L Mean Corpuscular Volume 111 FL (80-99) H 111 FL (80-99) H Mean Corpuscular Hemoglobin 34.5 PG (27.0-31.0) H 35.6 PG (27.0-31.0) H Mean Corpuscular Hemoglobin Concent 31.2 G/DL (32.0-36.0) L 32.2 G/DL (32.0-36.0) Red Cell Distribution Width 17.5 % (11.6-14.8) H 17.8 % (11.6-14.8) H Platelet Count 253 K/UL (150-450) 215 K/UL (150-450) Mean Platelet Volume 4.3 FL (6.5-10.1) L 4.7 FL (6.5-10.1) L Neutrophils (%) (Auto) % (45.0-75.0) % (45.0-75.0) Lymphocytes (%) (Auto) % (20.0-45.0) % (20.0-45.0) Monocytes (%) (Auto) % (1.0-10.0) % (1.0-10.0) Eosinophils (%) (Auto) % (0.0-3.0) % (0.0-3.0) Basophils (%) (Auto) % (0.0-2.0) % (0.0-2.0) Differential Total Cells Counted 100 Neutrophils % (Manual) 81 % (45-75) H Pending Lymphocytes % (Manual) 9 % (20-45) L Pending Monocytes % (Manual) 10 % (1-10) Eosinophils % (Manual) 0 % (0-3) Basophils % (Manual) 0 % (0-2) Band Neutrophils 0 % (0-8) Nucleated Red Blood Cells 1 /100 WBC Platelet Estimate Adequate Pending Platelet Morphology Normal Pending Hypochromasia 1+ Anisocytosis 1+ Sodium Level 133 MMOL/L (136-145) L 133 MMOL/L (136-145) L Potassium Level 4.0 MMOL/L (3.5-5.1) 3.5 MMOL/L (3.5-5.1) Chloride Level 98 MMOL/L (98-107) 102 MMOL/L (98-107) Carbon Dioxide Level 20 MMOL/L (21-32) L 23 MMOL/L (21-32) Anion Gap 16 mmol/L (5-15) H 8 mmol/L (5-15) Blood Urea Nitrogen 7 mg/dL (7-18) 7 mg/dL (7-18) Creatinine 1.2 MG/DL (0.55-1.30) 0.9 MG/DL (0.55-1.30) Estimat Glomerular Filtration Rate > 60 mL/min (>60) > 60 mL/min (>60) Glucose Level 113 MG/DL (74-106) H 104 MG/DL (74-106) Calcium Level 8.2 MG/DL (8.5-10.1) L 7.3 MG/DL (8.5-10.1) L Total Bilirubin 1.3 MG/DL (0.2-1.0) H 1.0 MG/DL (0.2-1.0) Direct Bilirubin 0.7 MG/DL (0.0-0.3) H Aspartate Amino Transf (AST/SGOT) 240 U/L (15-37) H 165 U/L (15-37) H Alanine Aminotransferase (ALT/SGPT) 128 U/L (12-78) H 91 U/L (12-78) H Alkaline Phosphatase 201 U/L (46-116) H 151 U/L (46-116) H Total Protein 8.3 G/DL (6.4-8.2) H 6.7 G/DL (6.4-8.2) Albumin 2.7 G/DL (3.4-5.0) L 2.2 G/DL (3.4-5.0) L Globulin 5.6 g/dL 4.5 g/dL Albumin/Globulin Ratio 0.5 (1.0-2.7) L 0.5 (1.0-2.7) L Lipase 1408 U/L (73-393) H 641 U/L (73-393) H Serum Alcohol < 3 mg/dL Urine Color Brown Urine Appearance Clear Urine pH 5 (4.5-8.0) Urine Specific Gal[place] 1.025 (1.005-1.035) Urine Protein 2+ (NEGATIVE) H Urine Glucose (UA) Negative (NEGATIVE) Urine Ketones 2+ (NEGATIVE) H Urine Occult Blood 2+ (NEGATIVE) H Urine Nitrite Positive (NEGATIVE) H Urine Bilirubin 2+ (NEGATIVE) H Urine Ictotest Negative Urine Urobilinogen 12 MG/DL (0.0-1.0) H Urine Leukocyte Esterase 3+ (NEGATIVE) H Urine RBC 2-4 /HPF (0 - 2) H Urine WBC 10-15 /HPF (0 - 2) H Urine Squamous Epithelial Cells Few /LPF (NONE/OCC) Urine Bacteria Many /HPF (NONE) H Urine HCG, Qualitative Negative Amylase Level 110 U/L (25-115) Microbiology Date/Time Source Procedure Growth Status 05/05/17 16:30 Urine,Clean Catch Urine Culture - Preliminary Gram Negative Carmelo Resulted Height (Feet): 5 Height (Inches): 9.00 Weight (Pounds): 200 Medications Current Medications Medications (Trade) Dose Ordered Sig/Payam Route PRN Reason Start Time Stop Time Status Last Admin Dose Admin Acetaminophen (Tylenol) 650 mg Q4H PRN ORAL FEVER 05/05/17 20:15 06/04/17 20:14 Acetaminophen/ Hydrocodone Bitart ([place] 10/325) 1 ea Q4H PRN ORAL For Moderate Pain 05/05/17 21:15 05/12/17 21:14 Cefepime HCl 2 gm/ Dextrose 55 ml @ 110 mls/hr Q12H IVPB 05/06/17 12:30 05/13/17 12:29 Clindamycin HCl/ Dextrose 50 ml @ 100 mls/hr Q8HR IV 05/06/17 14:00 05/13/17 13:59 Dextrose (Dextrose 50%) STAT PRN IV Hypoglycemia 05/05/17 21:15 06/04/17 21:14 Dextrose/ Electrolytes 1,000 ml @ 100 mls/hr Q10H IV 05/05/17 22:30 06/04/17 22:29 05/06/17 09:24 Mirtazapine (Remeron) 15 mg BEDTIME ORAL 05/06/17 21:00 06/05/17 20:59 Morphine Sulfate (Morphine Sulfate) 2 mg Q4H PRN IVP SEVERE PAIN 05/05/17 20:15 05/12/17 20:14 05/06/17 09:14 Ondansetron HCl (Zofran) 4 mg Q6H PRN IVP Nausea & Vomiting 05/05/17 21:15 06/04/17 21:14 05/06/17 09:36 Assessment/Plan Problem List: (1) Abdominal pain ICD Codes: R10.9 - Unspecified abdominal pain SNOMED: 71423881 (2) Hidradenitis suppurativa ICD Codes: L73.2 - Hidradenitis suppurativa SNOMED: 97162014 (3) Alcoholic pancreatitis ICD Codes: K85.20 - Alcohol induced acute pancreatitis without necrosis or infection SNOMED: 956668228 Qualifiers: Qualified Codes: K85.20 - Alcohol induced acute pancreatitis without necrosis or infection (4) Transaminitis ICD Codes: R74.0 - Nonspecific elevation of levels of transaminase and lactic acid dehydrogenase [LDH] SNOMED: 414301406, 448001950 (5) UTI (urinary tract infection) ICD Codes: N39.0 - Urinary tract infection, site not specified SNOMED: 89903364, 636923501 Qualifiers: Qualified Codes: N30.01 - Acute cystitis with hematuria (6) Anemia ICD Codes: D64.9 - Anemia, unspecified SNOMED: 188574146 Assessment/Plan GI consulted. Dr. Jones following. ID consulted. Empiric abx. Wound care. CLD and advance diet as tolerated. IVF. Pain management. Resume home meds. DVT ppx. D/w Dr. Terrell regarding POC and agrees. NATO DILLON May 06, 2017 13:04
--- NOTE | 2017-05-06 15:00 | Consultation ---
DATE OF CONSULTATION: 05/06/2017 CONSULTING PHYSICIAN: Santos Jones M.D. CHIEF COMPLAINT: Abdominal pain. HISTORY OF PRESENT ILLNESS: This is a 41 years old female known to me from prior admissions. She is an alcoholic, drinks a lot. She continues to drink 2 bottles of wine per day. Has prior history of alcoholic pancreatitis, presently with another episode of abdominal pain due to alcoholic pancreatitis. PAST MEDICAL HISTORY: History of alcoholic pancreatitis. ALLERGIES: Ibuprofen, NSAIDs, and anti-inflammatory medications. MEDICATIONS: Please see medication reconciliation list. FAMILY HISTORY: Noncontributory. SOCIAL HISTORY: The patient drinks currently about 2 bottles of wine per day. No IV drug abuse. REVIEW OF SYSTEMS: A 10-point review of systems was performed and pertinent positives in the HPI. PHYSICAL EXAMINATION: VITAL SIGNS: Temperature is 98.2, pulse is 102, respirations 20, and blood pressure is 127/94. HEENT: Normocephalic and atraumatic. Sclerae anicteric. NECK: Supple. No signs of obvious lymphadenopathy CARDIOVASCULAR: Tachy. Regular rate plus S1 and S2. No obvious murmur. LUNGS: Decreased breath sounds bilaterally based on the supine exam. ABDOMEN: Soft. Bowel sounds are present. There is no tenderness to palpation in the epigastric area. No rebound. No guarding. No peritoneal signs. EXTREMITIES: No cyanosis. No clubbing. There is evidence of edema on the right IV sites, most probably from IV infiltration. LABORATORY DATA: Sodium 133, potassium 3.5. AST of 165, ALT of 91, alkaline phosphatase of 191 and lipase of 641. White count of 4.3, hemoglobin 9.2, hematocrit 28.5, and platelet count is [id number]. ASSESSMENT AND PLAN: 1. Alcoholic pancreatitis. 2. Microcytic anemia secondary most probably due to alcoholism. PLAN: 1. Intravenous fluids. 2. The patient is very hungry and lipase is improving. So, we are going to start low-fat diet. 3. Monitor labs. 4. Pain control. 5. Discharge planning when the lipase is back to normal. Santos Jones M.D. DR: ANA MARIA JOB#: [id number] CC:
[2017-05-06] MEDS: Clindamycin 600mg 50 ML IV SCH ×2 (15:15→20:29)
[2017-05-06 16:00] VITALS: BP 97/59
--- NOTE | 2017-05-06 16:30 | Consultation ---
DATE OF CONSULTATION: MEDICAL CONSULTATION TIME SEEN: At 9 a.m. CONSULTING PHYSICIAN: Franky Olvera D.O. CHIEF COMPLAINT: Alcoholic pancreatitis, nausea, vomiting. BRIEF HISTORY: This is a 41-year-old female, who went on binge drinking 2 bottles of wine yesterday, abdominal pain, nausea, vomiting to [facility], diagnosed with alcoholic pancreatitis with lipase of 1408. The patient was admitted to medical floor for further treatment. Currently, slightly hungry, anxious, nauseous, otherwise normal. REVIEW OF SYSTEMS: Slight nausea, vomiting. No chest pain. No shortness of breath. PAST MEDICAL HISTORY: Includes hypertension, weakness, and anxiety. PAST SURGICAL HISTORY: Gastric sleeve, hidradenitis. ALLERGIES: Include ibuprofen and NSAID. MEDICATIONS: Include , ceftriaxone, Zofran, dextrose, Dewey, morphine, and Tylenol. SOCIAL HISTORY: No smoking. Positive alcohol. No intravenous drug abuse. FAMILY HISTORY: Noncontributory. PHYSICAL EXAMINATION: GENERAL: Slightly anxious in bed, oriented x3, in no acute distress. VITAL SIGNS: Temperature is 98, pulse 102, respirations 20, blood pressure 123/94. CARDIOVASCULAR: No murmur. LUNGS: Distant and clear. ABDOMEN: Bowel sounds distant. Soft. Slightly tender. No guarding. No rigidity. No rebound. EXTREMITIES: No cyanosis, clubbing, or edema. NEUROLOGIC: The patient moves all extremities, slightly weak. LABORATORY AND DIAGNOSTIC DATA: Laboratories at this time show white count 4.3, hemoglobin and hematocrit 9.2/28, platelets 215,000. Sodium 133, calcium 7.3. AST 165, ALT 91, alkaline phosphatase 151. Albumin 2.2. Urinalysis 2+ bilirubin, 3+ leukocyte esterase. Serum alcohol less than 3. ASSESSMENT: 1. Alcoholic pancreatitis. 2. Anemia. 3. Urinary tract infection. 4. Hypertension. 5. Weakness. 6. Anxiety. PLAN: Continue pre-admit medications. Antibiotics as ordered. Blood pressure control. Anxiolytic. N.p.o. IV fluids. Dietary followup. GI followup. Nephrology followup. We will continue to follow this patient. OT, PT, dietary evaluation. CBC, BMP in the morning. Franky Olvera D.O. DR: CIARA JOB#: [id number] CC:
[2017-05-06] MEDS ORDERED: cefTRIAXone 1 GM in NS 55 ML IVPB SCH (18:00)
--- NOTE | 2017-05-06 20:45 | Consultation ---
DATE OF CONSULTATION: 05/06/2016 INFECTIOUS DISEASE CONSULTATION CONSULTING PHYSICIAN: Brandan Rubin M.D. REQUESTING PHYSICIAN: Juan Terrell M.D. REASON FOR CONSULTATION: Recurrent hidradenitis suppurativa, abdominal cellulitis, and UTI. Recommendation for antibiotics treatment. HISTORY OF PRESENT ILLNESS: The patient is a 41-year-old female with past medical history of right axillary hidradenitis suppurativa, anxiety disorder, GERD, pancreatitis due to alcohol abuse, and alcoholic hepatitis who lives alone was brought into the emergency room at [facility] for sudden onset of abdominal pain in the right upper quadrant for two days. Her pain was dull, ache, sharp, 10/10, acute, associated with vomiting. No blood in her vomits. No melena or tarry stools. The patient had a long history of alcoholism and she drinks like two bottles of wine everyday. The patient had prior history of pancreatitis and right axillary hidradenitis suppurativa, which she was treated for with IV antibiotics on multiple occasions with recurrent symptoms. So, I was consulted by the primary provider team for antibiotics treatment and further management of her recurrent hydradenitis suppurative, UTI, and abdominal wall cellulitis. PAST MEDICAL HISTORY: Significant for alcohol abuse, alcoholic hepatitis, pancreatitis, anxiety disorder, hidradenitis suppurativa, and hypertension. PAST SURGICAL HISTORY: Negative. ALLERGIES: She is allergic to ibuprofen and NSAID with swollen face and lips. MEDICATIONS: The patient received ceftriaxone and morphine in the emergency room. For the rest of her medications, please refer to [facility]. FAMILY HISTORY: Noncontributory. SOCIAL HISTORY: The patient lives alone. Drinks alcohol on daily basis two bottles of wine daily. Denied using any drugs or tobacco. Unemployed. REVIEW OF SYSTEMS: Fourteen points of systems reviewed were all negative apart from the one I mentioned above in my History and Physical. PHYSICAL EXAMINATION: VITAL SIGNS: Temperature 98.2, pulse 102, respirations 20, blood pressure 127/94, and pulse oximetry 99% on room air. GENERAL: The patient is a middle-aged female, obese, lying in bed, awake, alert, oriented, not in acute distress, and complaining of abdominal pain. HEENT: Normocephalic and atraumatic. Pupils are reactive to light equally. Moist oral mucosa. No exudate or thrush. NECK: Supple. No lymphadenopathy. CARDIOVASCULAR: Regular rate and rhythm. No murmur. No gallop. She is tachycardic. S1 and S2 positive. ABDOMEN: Soft, obese, nontender, and nondistended. Evidence of skin break and cellulitis at the folds of her abdominal fat and foul smell. EXTREMITIES: She had right armpit hidradenitis suppurativa with drainage and foul smell. No edema or cyanosis in the legs. SKIN: Inflamed, red, irritated in the folds in her abdominal fat. LABORATORY DATA: Labs showed white count of 4.3, hemoglobin of 9.2, and platelet count of 215. BUN of 7 and creatinine of 0.9. AST of 165 and ALT of 91. Lipase of 641. Urinalysis showed positive nitrite, +3 leukocyte esterase, WBCs 10 to 15, and many bacteria. MICROBIOLOGY: Urine culture is growing gram-negative rods. IMAGING STUDIES: CT scan of the abdomen and pelvis with IV contrast shows fatty liver in addition to pancreatic fat stranding indicating acute pancreatitis. ASSESSMENT AND RECOMMENDATION: 1. Hidradenitis suppurativa, recurrent. We will start the patient on cefepime and clindamycin empiric coverage and send wound culture. Recommend surgical evaluation for possible surgical intervention to prevent recurrence and failure. 2. Cellulitis of the abdominal wall. The patient already on antibiotics, which will cover her cellulitis. Recommend wound care consult. 3. Alcoholic hepatitis. Recommend gastrointestinal evaluation. Avoid hepatotoxic medicine. We will screen for hepatitis. 4. Urinary tract infection with gram-negative rods. The patient will be on cefepime empiric coverage, which will cover her urinary tract infection. Thank you for the consultation. Infectious Disease will continue to follow. Brandan Rubin M.D. DR: TIFFANY JOB#: [id number] CC:
[2017-05-06 21:00] VITALS: BP 133/89
--- NOTE | 2017-05-06 22:35 | Wound Care Consultation ---
Wound Assessment Wound Assessment : Wound Number: 1 Wound Present on Admission: Yes New Wound: No Status Change of Wound: No Wound Location Body Site Modif: right Wound Location Body Site: axilla Wound Type: other - hidradenitis Mine Test: Does not Mine Wound Thickness: Full Thickness Wound Length: 8.0 Wound Width: 11.5 Wound Depth: utd Percent of Wound Babbie/Red: 100 Wound Drainage Description: Serosanguineous Wound Drainage Amount: Copious Wound Drainage Odor: Mild Odor Tissue Surrounding Wound: Macerated Wound General Appearance: Reddened, Draining Wound Comment #1 Hidradenitis on right axilla Recommendation -Keep clean and dry -Optimize nutrition -Cleanse with saline, pat dry, apply Adaptic, cover with Bordered gauze daily and PRN soiled/dislodged -Assess and f/u accordingly for any changes FER MURPHY RN May 06, 2017 22:35
[2017-05-07] VITALS: BP 112/72
[2017-05-07] MEDS: Morphine Sulfate 2mg/ml Inj IVP PRN ×6 (00:51→22:27)
[2017-05-07] MEDS: Cefepime HCl 2 GM in D5W 55 ML IVPB SCH ×2 (00:51→12:08)
[2017-05-07] MEDS: D5 1/2NS w/KCl 20mEq 1,000 ML IV SCH ×2 (00:51→11:57)
[2017-05-07 04:00] VITALS: BP 119/79
[2017-05-07] MEDS: Clindamycin 600mg 50 ML IV SCH ×3 (05:08→22:21)
[2017-05-07 07:24] LABS: HEMATOCRIT 31.6 % (37.0-47.0); HEMOGLOBIN 10.1 G/DL (12.0-16.0); MEAN CORPUSCULAR VOLUME 111 FL (80-99); PLATELET COUNT 209 K/UL (150-450); RED BLOOD COUNT 2.86 M/UL (4.20-5.40); RED CELL DISTRIBUTION WIDTH 17.4 % (11.6-14.8)
[2017-05-07 07:42] LABS: AMYLASE 95 U/L (25-115)
[2017-05-07 07:45] LABS: ALANINE AMINOTRANSFERASE 105 U/L (12-78); ALBUMIN 2.4 G/DL (3.4-5.0); ALBUMIN/GLOBULIN RATIO 0.5 (1.0-2.7); ALKALINE PHOSPHATASE 201 U/L (46-116); ANION GAP 9 mmol/L (5-15); ASPARTATE AMINO TRANSFERASE 301 U/L (15-37); BLOOD UREA NITROGEN 8 mg/dL (7-18); CALCIUM 7.1 MG/DL (8.5-10.1); CARBON DIOXIDE 27 MMOL/L (21-32); CHLORIDE 98 MMOL/L (98-107); POTASSIUM 3.1 MMOL/L (3.5-5.1); SODIUM 134 MMOL/L (136-145)
[2017-05-07 08:00] VITALS: BP 101/61
--- NOTE | 2017-05-07 08:17 | General Progress Note ---
Assessment/Plan Problem List: (1) ETOH abuse ICD Codes: F10.10 - Alcohol abuse, uncomplicated SNOMED: 70129708 (2) Anemia ICD Codes: D64.9 - Anemia, unspecified SNOMED: 671286140 (3) Alcoholic hepatitis ICD Codes: K70.10 - Alcoholic hepatitis without ascites SNOMED: 834321817 (4) Fatty liver ICD Codes: K76.0 - Fatty (change of) liver, not elsewhere classified SNOMED: 204201038 (5) Alcoholic pancreatitis ICD Codes: K85.20 - Alcohol induced acute pancreatitis without necrosis or infection SNOMED: 092408964 Qualifiers: Qualified Codes: K85.20 - Alcohol induced acute pancreatitis without necrosis or infection Assessment/Plan pain control fu labs advance diet to full liquid diet Subjective ROS Limited/Unobtainable: Yes Allergies: Coded Allergies: IBUPROFEN (Verified Allergy, Severe, Anaphylaxis, 06/12/16) swollen face and lips NSAIDS (NON-STEROIDAL ANTI-INFLAMMA (Verified Allergy, Severe, Anaphylaxis , 06/12/16) swollen face and lips Uncoded Allergies: NSAIDS include Ibuprofen (Adverse Reaction, Severe, Anaphylaxis, 06/11/16) Swollen face and lip Subjective abd pain Objective Last 24 Hour Vital Signs Date Time Temp Pulse Resp B/P (MAP) Pulse Ox O2 Delivery O2 Flow Rate FiO2 05/07/17 04:00 97.9 97 21 119/79 100 05/07/17 00:00 98.2 85 21 112/72 98 05/06/17 21:00 98.6 88 20 133/89 99 05/06/17 16:00 100.2 109 19 97/59 95 Room Air 05/06/17 15:56 100.2 05/06/17 11:52 98.1 96 20 124/93 97 Room Air Intake and Output 05/06/17 05/07/17 19:00 07:00 Intake Total 1575 ml 905 ml Balance 1575 ml 905 ml Intake Oral 720 ml IV Total 855 ml 905 ml # Voids 2 5 Laboratory Tests 05/07/17 05:20: White Blood Count 4.0L, Red Blood Count 2.86L, Hemoglobin 10.1L, Hematocrit 31.6L, Mean Corpuscular Volume 111H, Mean Corpuscular Hemoglobin 35.3H, Mean Corpuscular Hemoglobin Concent 31.9L, Red Cell Distribution Width 17.4H, Platelet Count 209, Mean Platelet Volume 5.1L, Neutrophils (%) (Auto) , Lymphocytes (%) (Auto) , Monocytes (%) (Auto) , Eosinophils (%) (Auto) , Basophils (%) (Auto) , Neutrophils % (Manual) [Pending], Lymphocytes % (Manual) [Pending], Platelet Estimate [Pending], Platelet Morphology [Pending], Sodium Level 134L, Potassium Level 3.1L, Chloride Level 98, Carbon Dioxide Level 27, Anion Gap 9, Blood Urea Nitrogen 8, Creatinine 1.0, Estimat Glomerular Filtration Rate > 60, Glucose Level 95, Calcium Level 7.1L, Total Bilirubin 1.0 , Aspartate Amino Transf (AST/SGOT) 301H, Alanine Aminotransferase (ALT/SGPT) 105H, Alkaline Phosphatase 201H, Total Protein 7.4, Albumin 2.4L, Globulin 5.0, Albumin/Globulin Ratio 0.5L, Amylase Level 95, Lipase 408H Height (Feet): 5 Height (Inches): 9.00 Weight (Pounds): 200 General Appearance: alert EENT: normal ENT inspection Neck: supple Cardiovascular: normal rate Respiratory/Chest: decreased breath sounds Extremities: non-tender VIDAL ROBERTS May 07, 2017 08:17
--- NOTE | 2017-05-07 08:26 | General Progress Note ---
Assessment/Plan Problem List: (1) Hydradenitis ICD Codes: L73.2 - Hidradenitis suppurativa SNOMED: 55976306 (2) Anxiety ICD Codes: F41.9 - Anxiety disorder, unspecified SNOMED: 79070356 (3) Weak ICD Codes: R53.1 - Weakness SNOMED: 50719517 (4) Acute pancreatitis ICD Codes: K85.90 - Acute pancreatitis without necrosis or infection, unspecified SNOMED: 328381715 (5) HTN (hypertension) ICD Codes: I10 - Essential (primary) hypertension SNOMED: 46482252 (6) Alcoholic pancreatitis ICD Codes: K85.20 - Alcohol induced acute pancreatitis without necrosis or infection SNOMED: 194045370 Qualifiers: Qualified Codes: K85.20 - Alcohol induced acute pancreatitis without necrosis or infection (7) UTI (urinary tract infection) ICD Codes: N39.0 - Urinary tract infection, site not specified SNOMED: 10098299, 462899158 Qualifiers: Qualified Codes: N30.01 - Acute cystitis with hematuria (8) Anemia ICD Codes: D64.9 - Anemia, unspecified SNOMED: 677744526 Status: stable, progressing Assessment/Plan ot pt adv diet pain control abx cbc bmp am Subjective Constitutional: Reports: weakness Allergies: Coded Allergies: IBUPROFEN (Verified Allergy, Severe, Anaphylaxis, 06/12/16) swollen face and lips NSAIDS (NON-STEROIDAL ANTI-INFLAMMA (Verified Allergy, Severe, Anaphylaxis , 06/12/16) swollen face and lips Uncoded Allergies: NSAIDS include Ibuprofen (Adverse Reaction, Severe, Anaphylaxis, 06/11/16) Swollen face and lip All Systems: reviewed and negative except above Subjective sleepy calm in bed Objective Last 24 Hour Vital Signs Date Time Temp Pulse Resp B/P (MAP) Pulse Ox O2 Delivery O2 Flow Rate FiO2 05/07/17 04:00 97.9 97 21 119/79 100 05/07/17 00:00 98.2 85 21 112/72 98 05/06/17 21:00 98.6 88 20 133/89 99 05/06/17 16:00 100.2 109 19 97/59 95 Room Air 05/06/17 15:56 100.2 05/06/17 11:52 98.1 96 20 124/93 97 Room Air Intake and Output 05/06/17 05/07/17 19:00 07:00 Intake Total 1575 ml 905 ml Balance 1575 ml 905 ml Intake Oral 720 ml IV Total 855 ml 905 ml # Voids 2 5 Laboratory Tests 05/07/17 05:20: White Blood Count 4.0L, Red Blood Count 2.86L, Hemoglobin 10.1L, Hematocrit 31.6L, Mean Corpuscular Volume 111H, Mean Corpuscular Hemoglobin 35.3H, Mean Corpuscular Hemoglobin Concent 31.9L, Red Cell Distribution Width 17.4H, Platelet Count 209, Mean Platelet Volume 5.1L, Neutrophils (%) (Auto) , Lymphocytes (%) (Auto) , Monocytes (%) (Auto) , Eosinophils (%) (Auto) , Basophils (%) (Auto) , Neutrophils % (Manual) [Pending], Lymphocytes % (Manual) [Pending], Platelet Estimate [Pending], Platelet Morphology [Pending], Sodium Level 134L, Potassium Level 3.1L, Chloride Level 98, Carbon Dioxide Level 27, Anion Gap 9, Blood Urea Nitrogen 8, Creatinine 1.0, Estimat Glomerular Filtration Rate > 60, Glucose Level 95, Calcium Level 7.1L, Total Bilirubin 1.0 , Aspartate Amino Transf (AST/SGOT) 301H, Alanine Aminotransferase (ALT/SGPT) 105H, Alkaline Phosphatase 201H, Total Protein 7.4, Albumin 2.4L, Globulin 5.0, Albumin/Globulin Ratio 0.5L, Amylase Level 95, Lipase 408H Height (Feet): 5 Height (Inches): 9.00 Weight (Pounds): 200 General Appearance: lethargic EENT: normal ENT inspection Neck: non-tender Cardiovascular: normal peripheral pulses, normal rate, regular rhythm Respiratory/Chest: chest wall non-tender, lungs clear, normal breath sounds Abdomen: normal bowel sounds, non tender, soft Extremities: normal inspection Edema: no edema noted Arm (L), no edema noted Arm (R), no edema noted Leg (L), no edema noted Leg (R), no edema noted Pedal (L), no edema noted Pedal (R), no edema noted Generalized Neurologic: responsive, motor weakness Skin: normal pigmentation, warm/dry PIETER GAUTHIER May 07, 2017 08:26
--- NOTE | 2017-05-07 09:29 | Nephrology Progress Note ---
Assessment/Plan Problem List: (1) Abdominal pain (2) Hidradenitis suppurativa (3) Alcoholic pancreatitis (4) Transaminitis (5) UTI (urinary tract infection) (6) Anemia Plan abx per ID. follow up labs. advance diet per GI. cont wound care. Subjective Subjective abd pain better. Objective Objective Last 24 Hour Vital Signs Date Time Temp Pulse Resp B/P (MAP) Pulse Ox O2 Delivery O2 Flow Rate FiO2 05/07/17 08:00 98.2 80 20 101/61 99 05/07/17 04:00 97.9 97 21 119/79 100 05/07/17 00:00 98.2 85 21 112/72 98 05/06/17 21:00 98.6 88 20 133/89 99 05/06/17 16:00 100.2 109 19 97/59 95 Room Air 05/06/17 15:56 100.2 05/06/17 11:52 98.1 96 20 124/93 97 Room Air Intake and Output 05/06/17 05/07/17 19:00 07:00 Intake Total 1575 ml 905 ml Balance 1575 ml 905 ml Intake Oral 720 ml IV Total 855 ml 905 ml # Voids 2 5 Laboratory Tests 05/07/17 05:20: White Blood Count 4.0L, Red Blood Count 2.86L, Hemoglobin 10.1L, Hematocrit 31.6L, Mean Corpuscular Volume 111H, Mean Corpuscular Hemoglobin 35.3H, Mean Corpuscular Hemoglobin Concent 31.9L, Red Cell Distribution Width 17.4H, Platelet Count 209, Mean Platelet Volume 5.1L, Neutrophils (%) (Auto) , Lymphocytes (%) (Auto) , Monocytes (%) (Auto) , Eosinophils (%) (Auto) , Basophils (%) (Auto) , Neutrophils % (Manual) [Pending], Lymphocytes % (Manual) [Pending], Platelet Estimate [Pending], Platelet Morphology [Pending], Sodium Level 134L, Potassium Level 3.1L, Chloride Level 98, Carbon Dioxide Level 27, Anion Gap 9, Blood Urea Nitrogen 8, Creatinine 1.0, Estimat Glomerular Filtration Rate > 60, Glucose Level 95, Calcium Level 7.1L, Total Bilirubin 1.0 , Aspartate Amino Transf (AST/SGOT) 301H, Alanine Aminotransferase (ALT/SGPT) 105H, Alkaline Phosphatase 201H, Total Protein 7.4, Albumin 2.4L, Globulin 5.0, Albumin/Globulin Ratio 0.5L, Amylase Level 95, Lipase 408H Height (Feet): 5 Height (Inches): 9.00 Weight (Pounds): 200 General Appearance: no apparent distress Cardiovascular: normal rate, regular rhythm Respiratory/Chest: lungs clear Abdomen: non tender, soft Extremities: non-pitting Neurologic: alert, oriented x 3 NATO DILLON May 07, 2017 09:29
[2017-05-07 12:00] VITALS: BP 130/77
--- NOTE | 2017-05-07 13:30 | Infectious Diseases Prog Note ---
Assessment/Plan Problems: (1) Hidradenitis suppurativa Assessment & Plan: continue cefepime and clindamycin empiric coverage, await wound culture, recommend surgical eval (2) Cellulitis Assessment & Plan: of the abdominal folds ,already on antibiotics , recommend wound care consult (3) Alcoholic hepatitis Assessment & Plan: recommend GI eval, avoid hepatotoxic meds, screening for hepatitis (4) UTI (urinary tract infection) Assessment & Plan: with gram negative rods, will start cefepime empiric coverage Subjective Constitutional: Reports: fatigue HEENT: Reports: no symptoms Respiratory: Reports: no symptoms Breasts: Reports: no symptoms Cardiovascular: Reports: no symptoms Gastrointestinal/Abdominal: Reports: bloating, other - pain Genitourinary: Reports: no symptoms Neurologic: Reports: no symptoms Psychiatric: Reports: no symptoms Skin: Reports: ulcer, other - right armpit wounds Endocrine: Reports: no symptoms Hematologic: Reports: no symptoms Allergies: Coded Allergies: IBUPROFEN (Verified Allergy, Severe, Anaphylaxis, 06/12/16) swollen face and lips NSAIDS (NON-STEROIDAL ANTI-INFLAMMA (Verified Allergy, Severe, Anaphylaxis , 06/12/16) swollen face and lips Uncoded Allergies: NSAIDS include Ibuprofen (Adverse Reaction, Severe, Anaphylaxis, 06/11/16) Swollen face and lip Objective Vital Signs Last 24 Hour Vital Signs Date Time Temp Pulse Resp B/P (MAP) Pulse Ox O2 Delivery O2 Flow Rate FiO2 05/07/17 12:00 99.1 98 19 130/77 99 05/07/17 09:46 98.2 05/07/17 08:00 98.2 80 20 101/61 99 05/07/17 04:00 97.9 97 21 119/79 100 05/07/17 00:00 98.2 85 21 112/72 98 05/06/17 21:00 98.6 88 20 133/89 99 05/06/17 16:00 100.2 109 19 97/59 95 Room Air Height (Feet): 5 Height (Inches): 9.00 Weight (Pounds): 200 General Appearance: WD/WN, no acute distress HEENT: normocephalic, atraumatic, anicteric, mucous membranes moist Respiratory/Chest: chest wall non-tender, lungs clear, normal breath sounds, no respiratory distress, no accessory muscle use Cardiovascular: normal peripheral pulses, normal rate, regular rhythm, no gallop/murmur, no JVD Abdomen: normal bowel sounds, soft, non tender, no organomegaly, non distended , no mass, no scars, other - abdominal fold skin break with cellulitis Extremities: no cyanosis, no clubbing Skin: no rash, no lesions, no ulcers Neurologic/Psychiatric: alert, responsive Microbiology Date/Time Source Procedure Growth Status 05/05/17 16:30 Urine,Clean Catch Urine Culture - Final Escherichia Coli Complete Laboratory Tests Test 05/07/17 05:20 White Blood Count 4.0 K/UL (4.8-10.8) L Red Blood Count 2.86 M/UL (4.20-5.40) L Hemoglobin 10.1 G/DL (12.0-16.0) L Hematocrit 31.6 % (37.0-47.0) L Mean Corpuscular Volume 111 FL (80-99) H Mean Corpuscular Hemoglobin 35.3 PG (27.0-31.0) H Mean Corpuscular Hemoglobin Concent 31.9 G/DL (32.0-36.0) L Red Cell Distribution Width 17.4 % (11.6-14.8) H Platelet Count 209 K/UL (150-450) Mean Platelet Volume 5.1 FL (6.5-10.1) L Neutrophils (%) (Auto) % (45.0-75.0) Lymphocytes (%) (Auto) % (20.0-45.0) Monocytes (%) (Auto) % (1.0-10.0) Eosinophils (%) (Auto) % (0.0-3.0) Basophils (%) (Auto) % (0.0-2.0) Differential Total Cells Counted 100 Neutrophils % (Manual) 45 % (45-75) Lymphocytes % (Manual) 43 % (20-45) Monocytes % (Manual) 10 % (1-10) Eosinophils % (Manual) 2 % (0-3) Basophils % (Manual) 0 % (0-2) Band Neutrophils 0 % (0-8) Platelet Estimate Adequate Platelet Morphology Normal Hypochromasia 1+ Anisocytosis 1+ Macrocytosis 1+ Sodium Level 134 MMOL/L (136-145) L Potassium Level 3.1 MMOL/L (3.5-5.1) L Chloride Level 98 MMOL/L (98-107) Carbon Dioxide Level 27 MMOL/L (21-32) Anion Gap 9 mmol/L (5-15) Blood Urea Nitrogen 8 mg/dL (7-18) Creatinine 1.0 MG/DL (0.55-1.30) Estimat Glomerular Filtration Rate > 60 mL/min (>60) Glucose Level 95 MG/DL (74-106) Calcium Level 7.1 MG/DL (8.5-10.1) L Total Bilirubin 1.0 MG/DL (0.2-1.0) Aspartate Amino Transf (AST/SGOT) 301 U/L (15-37) H Alanine Aminotransferase (ALT/SGPT) 105 U/L (12-78) H Alkaline Phosphatase 201 U/L (46-116) H Total Protein 7.4 G/DL (6.4-8.2) Albumin 2.4 G/DL (3.4-5.0) L Globulin 5.0 g/dL Albumin/Globulin Ratio 0.5 (1.0-2.7) L Amylase Level 95 U/L (25-115) Lipase 408 U/L (73-393) H Current Medications Medications (Trade) Dose Ordered Sig/Payam Route PRN Reason Start Time Stop Time Status Last Admin Dose Admin Acetaminophen (Tylenol) 650 mg Q4H PRN ORAL FEVER 05/05/17 20:15 06/04/17 20:14 Acetaminophen/ Hydrocodone Bitart ([place] 10/325) 1 ea Q4H PRN ORAL For Moderate Pain 05/05/17 21:15 05/12/17 21:14 Cefepime HCl 2 gm/ Dextrose 55 ml @ 110 mls/hr Q12H IVPB 05/06/17 12:30 05/13/17 12:29 05/07/17 12:08 Clindamycin HCl/ Dextrose 50 ml @ 100 mls/hr Q8HR IV 05/06/17 14:00 05/13/17 13:59 05/07/17 12:50 Dextrose (Dextrose 50%) STAT PRN IV Hypoglycemia 05/05/17 21:15 06/04/17 21:14 Dextrose/ Electrolytes 1,000 ml @ 100 mls/hr Q10H IV 05/05/17 22:30 06/04/17 22:29 05/07/17 11:57 Mirtazapine (Remeron) 15 mg BEDTIME ORAL 05/06/17 21:00 06/05/17 20:59 05/06/17 20:29 Morphine Sulfate (Morphine Sulfate) 2 mg Q4H PRN IVP SEVERE PAIN 05/05/17 20:15 05/12/17 20:14 05/07/17 09:16 Ondansetron HCl (Zofran) 4 mg Q6H PRN IVP Nausea & Vomiting 05/05/17 21:15 06/04/17 21:14 05/07/17 05:08 Brandan Rubin M.D. May 07, 2017 13:30
[2017-05-07 16:00] VITALS: BP 117/70
[2017-05-07] MEDS: LORazepam 1mg tab ORAL PRN ×2 (16:08→22:21)
[2017-05-07 21:00] VITALS: BP 117/73
[2017-05-08] VITALS: BP 124/71
[2017-05-08] MEDS: Morphine Sulfate 2mg/ml Inj IVP PRN ×5 (03:05→21:30)
[2017-05-08 04:00] VITALS: BP 132/71
[2017-05-08] MEDS: LORazepam 1mg tab ORAL PRN ×3 (04:32→18:04)
[2017-05-08] MEDS: Clindamycin 600mg 50 ML IV SCH ×4 (06:00→21:30)
[2017-05-08 07:53] LABS: BASOPHILS % (AUTO) 1.4 % (0.0-2.0); EOSINOPHILS % (AUTO) 2.3 % (0.0-3.0); HEMATOCRIT 31.1 % (37.0-47.0); HEMOGLOBIN 10.3 G/DL (12.0-16.0); LYMPHOCYTES % (AUTO) 44.1 % (20.0-45.0); MEAN CORPUSCULAR VOLUME 110 FL (80-99); MONOCYTES % (AUTO) 13.6 % (1.0-10.0); NEUTROPHILS % (AUTO) 38.6 % (45.0-75.0); PLATELET COUNT 211 K/UL (150-450); RED BLOOD COUNT 2.82 M/UL (4.20-5.40); RED CELL DISTRIBUTION WIDTH 17.4 % (11.6-14.8)
[2017-05-08 08:17] LABS: ALANINE AMINOTRANSFERASE 118 U/L (12-78); ALBUMIN 2.4 G/DL (3.4-5.0); ALBUMIN/GLOBULIN RATIO 0.4 (1.0-2.7); ALKALINE PHOSPHATASE 209 U/L (46-116); ANION GAP 10 mmol/L (5-15); ASPARTATE AMINO TRANSFERASE 305 U/L (15-37); BLOOD UREA NITROGEN 9 mg/dL (7-18); CALCIUM 6.8 MG/DL (8.5-10.1); CARBON DIOXIDE 28 MMOL/L (21-32); CHLORIDE 94 MMOL/L (98-107); CREATININE 0.8 MG/DL (0.55-1.30); POTASSIUM 2.9 MMOL/L (3.5-5.1); SODIUM 132 MMOL/L (136-145)
[2017-05-08 08:19] VITALS: BP 107/72
[2017-05-08 08:43] LABS: INR 1.3 (0.9-1.1)
[2017-05-08] MEDS: D5 1/2NS w/KCl 20mEq 1,000 ML IV SCH ×2 (12:00)
[2017-05-08 12:03] VITALS: BP 125/71
--- NOTE | 2017-05-08 12:16 | GI Progress Note ---
Assessment/Plan Problems: (1) ETOH abuse ICD Codes: F10.10 - Alcohol abuse, uncomplicated SNOMED: 37661616 (2) Anxiety ICD Codes: F41.9 - Anxiety disorder, unspecified SNOMED: 49525651 (3) Alcoholic hepatitis ICD Codes: K70.10 - Alcoholic hepatitis without ascites SNOMED: 384008185 (4) Fatty liver ICD Codes: K76.0 - Fatty (change of) liver, not elsewhere classified SNOMED: 931368834 (5) Severe anemia ICD Codes: D64.9 - Anemia, unspecified SNOMED: 081121305 (6) Severe malnutrition ICD Codes: E43 - Unspecified severe protein-calorie malnutrition SNOMED: 02169184 (7) Acute alcohol intoxication ICD Codes: F10.129 - Alcohol abuse with intoxication, unspecified SNOMED: 74750691 Status: unchanged Status Narrative Discussed with Dr. Jones. Assessment/Plan lipase levels now normal adv to low fat diet pain mgmt avoid alcohol fu labs, LFTs, hep panel Subjective Subjective hungry Objective Last 24 Hour Vital Signs Date Time Temp Pulse Resp B/P (MAP) Pulse Ox O2 Delivery O2 Flow Rate FiO2 05/08/17 12:03 98.1 101 18 125/71 100 Room Air 05/08/17 08:19 18 05/08/17 08:19 97.7 94 107/72 99 Room Air 05/08/17 04:00 98.2 100 20 132/71 97 Room Air 05/08/17 00:00 98.1 100 20 124/71 99 Room Air 05/07/17 21:00 98.1 99 20 117/73 98 Room Air 05/07/17 19:13 98.1 05/07/17 16:00 98.1 100 19 117/70 99 Room Air Intake and Output 05/07/17 05/08/17 19:00 07:00 Intake Total 1755 ml 1805 ml Balance 1755 ml 1805 ml Intake Oral 750 ml 800 ml IV Total 1005 ml 1005 ml # Voids 3 3 Laboratory Tests Test 05/08/17 05:40 White Blood Count 4.0 K/UL (4.8-10.8) L Red Blood Count 2.82 M/UL (4.20-5.40) L Hemoglobin 10.3 G/DL (12.0-16.0) L Hematocrit 31.1 % (37.0-47.0) L Mean Corpuscular Volume 110 FL (80-99) H Mean Corpuscular Hemoglobin 36.4 PG (27.0-31.0) H Mean Corpuscular Hemoglobin Concent 33.1 G/DL (32.0-36.0) Red Cell Distribution Width 17.4 % (11.6-14.8) H Platelet Count 211 K/UL (150-450) Mean Platelet Volume 5.1 FL (6.5-10.1) L Neutrophils (%) (Auto) 38.6 % (45.0-75.0) L Lymphocytes (%) (Auto) 44.1 % (20.0-45.0) Monocytes (%) (Auto) 13.6 % (1.0-10.0) H Eosinophils (%) (Auto) 2.3 % (0.0-3.0) Basophils (%) (Auto) 1.4 % (0.0-2.0) Prothrombin Time 13.4 SEC (9.30-11.50) H Prothromb Time International Ratio 1.3 (0.9-1.1) H Sodium Level 132 MMOL/L (136-145) L Potassium Level 2.9 MMOL/L (3.5-5.1) L Chloride Level 94 MMOL/L (98-107) L Carbon Dioxide Level 28 MMOL/L (21-32) Anion Gap 10 mmol/L (5-15) Blood Urea Nitrogen 9 mg/dL (7-18) Creatinine 0.8 MG/DL (0.55-1.30) Estimat Glomerular Filtration Rate > 60 mL/min (>60) Glucose Level 90 MG/DL (74-106) Calcium Level 6.8 MG/DL (8.5-10.1) L Total Bilirubin 1.0 MG/DL (0.2-1.0) Aspartate Amino Transf (AST/SGOT) 305 U/L (15-37) H Alanine Aminotransferase (ALT/SGPT) 118 U/L (12-78) H Alkaline Phosphatase 209 U/L (46-116) H Total Protein 7.8 G/DL (6.4-8.2) Albumin 2.4 G/DL (3.4-5.0) L Globulin 5.4 g/dL Albumin/Globulin Ratio 0.4 (1.0-2.7) L Lipase 200 U/L (73-393) Height (Feet): 5 Height (Inches): 9.00 Weight (Pounds): 200 General Appearance: WD/WN, no apparent distress, alert Cardiovascular: normal rate Respiratory/Chest: normal breath sounds, no respiratory distress Abdominal Exam: normal bowel sounds, non tender, soft Extremities: normal range of motion, non-tender Nayeli Box N.P. May 08, 2017 12:16
[2017-05-08] MEDS: Cefepime HCl 2 GM in D5W 55 ML IVPB SCH ×3 (12:29)
--- NOTE | 2017-05-08 14:03 | Infectious Diseases Prog Note ---
Assessment/Plan Problems: (1) Hidradenitis suppurativa Assessment & Plan: continue cefepime and clindamycin empiric coverage, await wound culture, recommend surgical eval with dr kearney due to recurrent episodes , D/W nurse (2) Cellulitis Assessment & Plan: of the abdominal folds ,already on antibiotics , recommend wound care consult (3) Alcoholic hepatitis Assessment & Plan: recommend GI eval, avoid hepatotoxic meds, screening for hepatitis (4) UTI (urinary tract infection) Assessment & Plan: with E coli , already on cefepime empiric coverage Subjective Constitutional: Reports: fatigue HEENT: Reports: no symptoms Respiratory: Reports: no symptoms Breasts: Reports: no symptoms Cardiovascular: Reports: no symptoms Gastrointestinal/Abdominal: Reports: no symptoms Genitourinary: Reports: no symptoms Neurologic: Reports: weakness Psychiatric: Reports: depression Skin: Reports: ulcer, other - hydradenitis supprutiva of the right auxillary area Endocrine: Reports: no symptoms Hematologic: Reports: no symptoms Musculoskeletal: Reports: no symptoms Allergies: Coded Allergies: IBUPROFEN (Verified Allergy, Severe, Anaphylaxis, 06/12/16) swollen face and lips NSAIDS (NON-STEROIDAL ANTI-INFLAMMA (Verified Allergy, Severe, Anaphylaxis , 06/12/16) swollen face and lips Uncoded Allergies: NSAIDS include Ibuprofen (Adverse Reaction, Severe, Anaphylaxis, 06/11/16) Swollen face and lip Objective Vital Signs Last 24 Hour Vital Signs Date Time Temp Pulse Resp B/P (MAP) Pulse Ox O2 Delivery O2 Flow Rate FiO2 05/08/17 12:03 98.1 101 18 125/71 100 Room Air 05/08/17 08:19 18 05/08/17 08:19 97.7 94 107/72 99 Room Air 05/08/17 04:00 98.2 100 20 132/71 97 Room Air 05/08/17 00:00 98.1 100 20 124/71 99 Room Air 05/07/17 21:00 98.1 99 20 117/73 98 Room Air 05/07/17 19:13 98.1 05/07/17 16:00 98.1 100 19 117/70 99 Room Air Height (Feet): 5 Height (Inches): 9.00 Weight (Pounds): 200 General Appearance: WD/WN, no acute distress HEENT: normocephalic, atraumatic, anicteric, mucous membranes moist, PERRL Respiratory/Chest: chest wall non-tender, lungs clear, normal breath sounds, no respiratory distress, no accessory muscle use Cardiovascular: normal peripheral pulses, normal rate, regular rhythm, no gallop/murmur, no JVD Abdomen: normal bowel sounds, soft, non tender, no organomegaly, non distended , no mass, no scars Extremities: no cyanosis, no clubbing Skin: no rash, ulcers Neurologic/Psychiatric: alert, oriented x 3, responsive Microbiology Date/Time Source Procedure Growth Status 05/06/17 15:43 Blood Blood Culture - Preliminary NO GROWTH AFTER 24 HOURS Resulted 05/06/17 15:28 Blood Blood Culture - Preliminary NO GROWTH AFTER 24 HOURS Resulted 05/05/17 16:30 Urine,Clean Catch Urine Culture - Final Escherichia Coli Complete Laboratory Tests Test 05/08/17 05:40 White Blood Count 4.0 K/UL (4.8-10.8) L Red Blood Count 2.82 M/UL (4.20-5.40) L Hemoglobin 10.3 G/DL (12.0-16.0) L Hematocrit 31.1 % (37.0-47.0) L Mean Corpuscular Volume 110 FL (80-99) H Mean Corpuscular Hemoglobin 36.4 PG (27.0-31.0) H Mean Corpuscular Hemoglobin Concent 33.1 G/DL (32.0-36.0) Red Cell Distribution Width 17.4 % (11.6-14.8) H Platelet Count 211 K/UL (150-450) Mean Platelet Volume 5.1 FL (6.5-10.1) L Neutrophils (%) (Auto) 38.6 % (45.0-75.0) L Lymphocytes (%) (Auto) 44.1 % (20.0-45.0) Monocytes (%) (Auto) 13.6 % (1.0-10.0) H Eosinophils (%) (Auto) 2.3 % (0.0-3.0) Basophils (%) (Auto) 1.4 % (0.0-2.0) Prothrombin Time 13.4 SEC (9.30-11.50) H Prothromb Time International Ratio 1.3 (0.9-1.1) H Sodium Level 132 MMOL/L (136-145) L Potassium Level 2.9 MMOL/L (3.5-5.1) L Chloride Level 94 MMOL/L (98-107) L Carbon Dioxide Level 28 MMOL/L (21-32) Anion Gap 10 mmol/L (5-15) Blood Urea Nitrogen 9 mg/dL (7-18) Creatinine 0.8 MG/DL (0.55-1.30) Estimat Glomerular Filtration Rate > 60 mL/min (>60) Glucose Level 90 MG/DL (74-106) Calcium Level 6.8 MG/DL (8.5-10.1) L Total Bilirubin 1.0 MG/DL (0.2-1.0) Aspartate Amino Transf (AST/SGOT) 305 U/L (15-37) H Alanine Aminotransferase (ALT/SGPT) 118 U/L (12-78) H Alkaline Phosphatase 209 U/L (46-116) H Total Protein 7.8 G/DL (6.4-8.2) Albumin 2.4 G/DL (3.4-5.0) L Globulin 5.4 g/dL Albumin/Globulin Ratio 0.4 (1.0-2.7) L Lipase 200 U/L (73-393) Current Medications Medications (Trade) Dose Ordered Sig/Payam Route PRN Reason Start Time Stop Time Status Last Admin Dose Admin Acetaminophen (Tylenol) 650 mg Q4H PRN ORAL FEVER 05/05/17 20:15 06/04/17 20:14 Acetaminophen/ Hydrocodone Bitart ([place] 10/325) 1 ea Q4H PRN ORAL For Moderate Pain 05/05/17 21:15 05/12/17 21:14 Cefepime HCl 2 gm/ Dextrose 55 ml @ 110 mls/hr Q12H IVPB 05/06/17 12:30 05/13/17 12:29 05/08/17 12:29 Clindamycin HCl/ Dextrose 50 ml @ 100 mls/hr Q8HR IV 05/06/17 14:00 05/13/17 13:59 05/08/17 06:48 Dextrose (Dextrose 50%) STAT PRN IV Hypoglycemia 05/05/17 21:15 06/04/17 21:14 Dextrose/ Electrolytes 1,000 ml @ 100 mls/hr Q10H IV 05/05/17 22:30 06/04/17 22:29 05/08/17 12:00 Lorazepam (Ativan) 1 mg Q6H PRN ORAL For Anxiety 05/07/17 15:45 05/14/17 15:44 05/08/17 10:46 Mirtazapine (Remeron) 15 mg BEDTIME ORAL 05/06/17 21:00 06/05/17 20:59 05/07/17 22:20 Morphine Sulfate (Morphine Sulfate) 2 mg Q4H PRN IVP SEVERE PAIN 05/05/17 20:15 05/12/17 20:14 05/08/17 11:53 Ondansetron HCl (Zofran) 4 mg Q6H PRN IVP Nausea & Vomiting 05/05/17 21:15 06/04/17 21:14 05/07/17 05:08 Brandan Rubin M.D. May 08, 2017 14:03
--- NOTE | 2017-05-08 14:05 | General Progress Note ---
Assessment/Plan Problem List: (1) Hydradenitis ICD Codes: L73.2 - Hidradenitis suppurativa SNOMED: 42373994 (2) Anxiety ICD Codes: F41.9 - Anxiety disorder, unspecified SNOMED: 15822799 (3) Weak ICD Codes: R53.1 - Weakness SNOMED: 86017111 (4) Acute pancreatitis ICD Codes: K85.90 - Acute pancreatitis without necrosis or infection, unspecified SNOMED: 637058067 (5) HTN (hypertension) ICD Codes: I10 - Essential (primary) hypertension SNOMED: 54352495 (6) Alcoholic pancreatitis ICD Codes: K85.20 - Alcohol induced acute pancreatitis without necrosis or infection SNOMED: 332654501 Qualifiers: Qualified Codes: K85.20 - Alcohol induced acute pancreatitis without necrosis or infection (7) UTI (urinary tract infection) ICD Codes: N39.0 - Urinary tract infection, site not specified SNOMED: 95747805, 081671176 Qualifiers: Qualified Codes: N30.01 - Acute cystitis with hematuria (8) Anemia ICD Codes: D64.9 - Anemia, unspecified SNOMED: 889969832 Status: stable, progressing, tolerating diet Assessment/Plan ot pt adv diet pain control abx cbc bmp am dc plan w hh Subjective Constitutional: Reports: weakness Allergies: Coded Allergies: IBUPROFEN (Verified Allergy, Severe, Anaphylaxis, 06/12/16) swollen face and lips NSAIDS (NON-STEROIDAL ANTI-INFLAMMA (Verified Allergy, Severe, Anaphylaxis , 06/12/16) swollen face and lips Uncoded Allergies: NSAIDS include Ibuprofen (Adverse Reaction, Severe, Anaphylaxis, 06/11/16) Swollen face and lip All Systems: reviewed and negative except above Subjective sleepy calm in bed Objective Last 24 Hour Vital Signs Date Time Temp Pulse Resp B/P (MAP) Pulse Ox O2 Delivery O2 Flow Rate FiO2 05/08/17 12:03 98.1 101 18 125/71 100 Room Air 05/08/17 08:19 18 05/08/17 08:19 97.7 94 107/72 99 Room Air 05/08/17 04:00 98.2 100 20 132/71 97 Room Air 05/08/17 00:00 98.1 100 20 124/71 99 Room Air 05/07/17 21:00 98.1 99 20 117/73 98 Room Air 05/07/17 19:13 98.1 05/07/17 16:00 98.1 100 19 117/70 99 Room Air Intake and Output 05/07/17 05/08/17 19:00 07:00 Intake Total 1755 ml 1805 ml Balance 1755 ml 1805 ml Intake Oral 750 ml 800 ml IV Total 1005 ml 1005 ml # Voids 3 3 Laboratory Tests 05/08/17 05:40: White Blood Count 4.0L, Red Blood Count 2.82L, Hemoglobin 10.3L, Hematocrit 31.1L, Mean Corpuscular Volume 110H, Mean Corpuscular Hemoglobin 36.4H, Mean Corpuscular Hemoglobin Concent 33.1, Red Cell Distribution Width 17.4H, Platelet Count 211, Mean Platelet Volume 5.1L, Neutrophils (%) (Auto) 38.6L, Lymphocytes (%) (Auto) 44.1, Monocytes (%) (Auto) 13.6H, Eosinophils (%) (Auto) 2.3, Basophils (%) (Auto) 1.4, Prothrombin Time 13.4H, Prothromb Time International Ratio 1.3H, Sodium Level 132L, Potassium Level 2.9L, Chloride Level 94L, Carbon Dioxide Level 28, Anion Gap 10, Blood Urea Nitrogen 9, Creatinine 0.8, Estimat Glomerular Filtration Rate > 60, Glucose Level 90, Calcium Level 6.8L, Total Bilirubin 1.0, Aspartate Amino Transf (AST/SGOT) 305H , Alanine Aminotransferase (ALT/SGPT) 118H, Alkaline Phosphatase 209H, Total Protein 7.8, Albumin 2.4L, Globulin 5.4, Albumin/Globulin Ratio 0.4L, Lipase 200 Height (Feet): 5 Height (Inches): 9.00 Weight (Pounds): 200 General Appearance: lethargic EENT: normal ENT inspection Neck: normal alignment Cardiovascular: normal peripheral pulses, normal rate, regular rhythm Respiratory/Chest: chest wall non-tender, lungs clear, normal breath sounds Abdomen: normal bowel sounds, soft Extremities: normal inspection Edema: no edema noted Arm (L), no edema noted Arm (R), no edema noted Leg (L), no edema noted Leg (R), no edema noted Pedal (L), no edema noted Pedal (R), no edema noted Generalized Neurologic: responsive, motor weakness Skin: normal pigmentation, warm/dry PIETER GAUTHIER May 08, 2017 14:05
[2017-05-08 16:00] VITALS: BP 102/72
--- NOTE | 2017-05-08 18:52 | Nephrology Progress Note ---
Assessment/Plan Problem List: (1) Acute pancreatitis (2) Alcoholic hepatitis (3) Anxiety (4) HTN (hypertension) (5) Metabolic acidosis (6) Generalized weakness (7) Chronic pain syndrome Plan Continue pain management Monitor lytes, correct prn F/U with GI rec AM labs Subjective Constitutional: Reports: weakness HEENT: Denies: no symptoms, eye pain, blurred vision, tearing, double vision, ear pain, ear discharge, nose pain, nose congestion, throat pain, throat swelling, mouth pain, mouth swelling, other Genitourinary: Denies: no symptoms, burning, discharge, frequency, flank pain, hematuria, incontinence, pain, urgency, other Neurologic/Psychiatric: Denies: no symptoms, anxiety, depressed, emotional problems, headache, numbness, paresthesia, pre-existing deficit, seizure, tingling, tremors, weakness, other Subjective Complains that the nurse dilutes the pain med before given it to her and that she doesn't want it diluted Objective Objective Last 24 Hour Vital Signs Date Time Temp Pulse Resp B/P (MAP) Pulse Ox O2 Delivery O2 Flow Rate FiO2 05/08/17 16:00 98.6 100 19 102/72 100 Room Air 05/08/17 12:03 98.1 101 18 125/71 100 Room Air 05/08/17 08:19 18 05/08/17 08:19 97.7 94 107/72 99 Room Air 05/08/17 04:00 98.2 100 20 132/71 97 Room Air 05/08/17 00:00 98.1 100 20 124/71 99 Room Air 05/07/17 21:00 98.1 99 20 117/73 98 Room Air 05/07/17 19:13 98.1 Intake and Output 05/07/17 05/08/17 19:00 07:00 Intake Total 1755 ml 1805 ml Balance 1755 ml 1805 ml Intake Oral 750 ml 800 ml IV Total 1005 ml 1005 ml # Voids 3 3 Laboratory Tests 05/08/17 05:40: White Blood Count 4.0L, Red Blood Count 2.82L, Hemoglobin 10.3L, Hematocrit 31.1L, Mean Corpuscular Volume 110H, Mean Corpuscular Hemoglobin 36.4H, Mean Corpuscular Hemoglobin Concent 33.1, Red Cell Distribution Width 17.4H, Platelet Count 211, Mean Platelet Volume 5.1L, Neutrophils (%) (Auto) 38.6L, Lymphocytes (%) (Auto) 44.1, Monocytes (%) (Auto) 13.6H, Eosinophils (%) (Auto) 2.3, Basophils (%) (Auto) 1.4, Prothrombin Time 13.4H, Prothromb Time International Ratio 1.3H, Sodium Level 132L, Potassium Level 2.9L, Chloride Level 94L, Carbon Dioxide Level 28, Anion Gap 10, Blood Urea Nitrogen 9, Creatinine 0.8, Estimat Glomerular Filtration Rate > 60, Glucose Level 90, Calcium Level 6.8L, Total Bilirubin 1.0, Aspartate Amino Transf (AST/SGOT) 305H , Alanine Aminotransferase (ALT/SGPT) 118H, Alkaline Phosphatase 209H, Total Protein 7.8, Albumin 2.4L, Globulin 5.4, Albumin/Globulin Ratio 0.4L, Lipase 200 Height (Feet): 5 Height (Inches): 9.00 Weight (Pounds): 200 General Appearance: no apparent distress, alert EENT: normal ENT inspection Neck: normal alignment, supple Cardiovascular: normal rate, regular rhythm Respiratory/Chest: lungs clear, normal breath sounds Abdomen: tender - generalized Extremities: non-tender, normal inspection, no calf tenderness Neurologic: alert, oriented x 3, responsive, normal mood/affect Domitila Aviles N.P. May 08, 2017 18:52
[2017-05-08 20:00] VITALS: BP 114/80
[2017-05-08] MEDS: NS w/KCl 40mEq 1,000 ML IV SCH (21:30)
[2017-05-09] VITALS: BP 115/75
[2017-05-09] MEDS: Cefepime HCl 2 GM in D5W 55 ML IVPB SCH (00:34)
[2017-05-09] MEDS: LORazepam 1mg tab ORAL PRN ×3 (00:34→17:06)
[2017-05-09] MEDS: Morphine Sulfate 2mg/ml Inj IVP PRN ×5 (01:52→18:46)
[2017-05-09 04:00] VITALS: BP 125/71
[2017-05-09] MEDS: NS w/KCl 40mEq 1,000 ML IV SCH ×2 (06:01→16:00)
[2017-05-09] MEDS: Clindamycin 600mg 50 ML IV SCH ×2 (06:01→14:25)
[2017-05-09 07:39] LABS: ALANINE AMINOTRANSFERASE 99 U/L (12-78); ALBUMIN 2.2 G/DL (3.4-5.0); ALBUMIN/GLOBULIN RATIO 0.4 (1.0-2.7); ALKALINE PHOSPHATASE 179 U/L (46-116); ANION GAP 6 mmol/L (5-15); ASPARTATE AMINO TRANSFERASE 196 U/L (15-37); BILIRUBIN,TOTAL 0.9 MG/DL (0.2-1.0); BLOOD UREA NITROGEN 13 mg/dL (7-18); CALCIUM 6.6 MG/DL (8.5-10.1); CARBON DIOXIDE 29 MMOL/L (21-32); CHLORIDE 99 MMOL/L (98-107); CREATININE 0.7 MG/DL (0.55-1.30); POTASSIUM 3.7 MMOL/L (3.5-5.1); SODIUM 134 MMOL/L (136-145)
[2017-05-09 07:56] LABS: BASOPHILS % (AUTO) 1.3 % (0.0-2.0); EOSINOPHILS % (AUTO) 2.7 % (0.0-3.0); HEMATOCRIT 29.5 % (37.0-47.0); HEMOGLOBIN 9.8 G/DL (12.0-16.0); LYMPHOCYTES % (AUTO) 41.5 % (20.0-45.0); MEAN CORPUSCULAR VOLUME 110 FL (80-99); MONOCYTES % (AUTO) 15.4 % (1.0-10.0); NEUTROPHILS % (AUTO) 39.2 % (45.0-75.0); PLATELET COUNT 224 K/UL (150-450); RED CELL DISTRIBUTION WIDTH 17.9 % (11.6-14.8)
[2017-05-09 08:00] VITALS: BP 93/57
[2017-05-09 11:50] VITALS: BP 111/77
--- NOTE | 2017-05-09 13:10 | Discharge Summary ---
Discharge Summary Hospital Course Date of Admission May 05, 2017 at 19:02 Date of Discharge May 09, 2017 Admitting Diagnosis acute pancreatitis HPI Alyssa Trevino is a 41 year old female who was admitted on May 05, 2017 at 19:02 for Acute Pancreatitis. 41-year-old female with history of EtOH use and hidradenitis suppurativa who presents to the emergency department complaining of 10 out of 10 in severity right upper quadrant abdominal pain x2 days. She reports acute onset of vomiting since last night. She denies hematemesis or hematochezia. She does admit to drinking 2 bottles of wine per day. Denies fevers or chills. Also she does report nonhealing lesions on her right axilla from hidradenitis with foul-smelling odor. Consultations GI - Dr. Jones. ID - Dr. Rubin, Wound care Hospital Course Patient was kept NPO and diet was advanced slowly as tolerated. She was hydrated with IVF and provided with pain management. She was placed empirically on IV antibiotics with cefepime and clindamycin. She also has a chronic right axillary wound secondary to hidradenitis supparativa. Wound care was consulted. Patient now tolerating her diet. Still has mild pain. Patient has been cleared from GI standpoint for discharge home. Discharge Medications Continued Medications: Hydrocodone Bit/Acetaminophen 5-325* ([place] 5-325 Tablet*) 1 Each Tablet 1 TAB ORAL Q4H PRN for For Pain, TAB Mirtazapine* (Remeron*) 15 Mg Tablet 15 MG ORAL BEDTIME, TAB Discharge Condition Upon Discharge: stable Discharge Disposition Patient was discharged to home with home health. Discharge Diagnoses: (1) Chronic pain syndrome (2) Acute alcohol intoxication (3) HTN (hypertension) (4) Acute pancreatitis (5) Alcoholic hepatitis (6) Abdominal pain (7) Anemia (8) Hidradenitis suppurativa (9) UTI (urinary tract infection) (10) Transaminitis NATO DILLON May 09, 2017 13:10
--- NOTE | 2017-05-09 14:32 | GI Progress Note ---
Assessment/Plan Problems: (1) ETOH abuse ICD Codes: F10.10 - Alcohol abuse, uncomplicated SNOMED: 26571475 (2) Anxiety ICD Codes: F41.9 - Anxiety disorder, unspecified SNOMED: 70173358 (3) Alcoholic hepatitis ICD Codes: K70.10 - Alcoholic hepatitis without ascites SNOMED: 473380618 (4) Fatty liver ICD Codes: K76.0 - Fatty (change of) liver, not elsewhere classified SNOMED: 622450927 (5) Severe anemia ICD Codes: D64.9 - Anemia, unspecified SNOMED: 780898086 (6) Severe malnutrition ICD Codes: E43 - Unspecified severe protein-calorie malnutrition SNOMED: 10313552 (7) Acute alcohol intoxication ICD Codes: F10.129 - Alcohol abuse with intoxication, unspecified SNOMED: 55667519 Status: stable Status Narrative Discussed with Dr. Jones. Assessment/Plan okay for DC per GI standpoint lipase levels now normal adv to low fat diet pain mgmt avoid alcohol fu labs, LFTs, hep panel Subjective Subjective tolerating diet Objective Last 24 Hour Vital Signs Date Time Temp Pulse Resp B/P (MAP) Pulse Ox O2 Delivery O2 Flow Rate FiO2 05/09/17 11:50 98.2 88 19 111/77 100 05/09/17 10:41 97.0 05/09/17 08:00 97.0 88 18 93/57 100 Room Air 05/09/17 04:00 97.8 78 18 125/71 99 Room Air 05/09/17 00:00 97.5 89 18 115/75 99 Room Air 05/08/17 20:00 97.9 99 18 114/80 99 Room Air 05/08/17 16:00 98.6 100 19 102/72 100 Room Air Intake and Output 05/08/17 05/09/17 19:00 07:00 Intake Total 1480 ml 905 ml Balance 1480 ml 905 ml Intake Oral 480 ml 200 ml IV Total 1000 ml 705 ml # Voids 3 Laboratory Tests Test 05/09/17 06:15 White Blood Count 4.0 K/UL (4.8-10.8) L Red Blood Count 2.70 M/UL (4.20-5.40) L Hemoglobin 9.8 G/DL (12.0-16.0) L Hematocrit 29.5 % (37.0-47.0) L Mean Corpuscular Volume 110 FL (80-99) H Mean Corpuscular Hemoglobin 36.2 PG (27.0-31.0) H Mean Corpuscular Hemoglobin Concent 33.0 G/DL (32.0-36.0) Red Cell Distribution Width 17.9 % (11.6-14.8) H Platelet Count 224 K/UL (150-450) Mean Platelet Volume 5.0 FL (6.5-10.1) L Neutrophils (%) (Auto) 39.2 % (45.0-75.0) L Lymphocytes (%) (Auto) 41.5 % (20.0-45.0) Monocytes (%) (Auto) 15.4 % (1.0-10.0) H Eosinophils (%) (Auto) 2.7 % (0.0-3.0) Basophils (%) (Auto) 1.3 % (0.0-2.0) Sodium Level 134 MMOL/L (136-145) L Potassium Level 3.7 MMOL/L (3.5-5.1) Chloride Level 99 MMOL/L (98-107) Carbon Dioxide Level 29 MMOL/L (21-32) Anion Gap 6 mmol/L (5-15) Blood Urea Nitrogen 13 mg/dL (7-18) Creatinine 0.7 MG/DL (0.55-1.30) Estimat Glomerular Filtration Rate > 60 mL/min (>60) Glucose Level 94 MG/DL (74-106) Calcium Level 6.6 MG/DL (8.5-10.1) L Total Bilirubin 0.9 MG/DL (0.2-1.0) Aspartate Amino Transf (AST/SGOT) 196 U/L (15-37) H Alanine Aminotransferase (ALT/SGPT) 99 U/L (12-78) H Alkaline Phosphatase 179 U/L (46-116) H Total Protein 7.2 G/DL (6.4-8.2) Albumin 2.2 G/DL (3.4-5.0) L Globulin 5.0 g/dL Albumin/Globulin Ratio 0.4 (1.0-2.7) L Height (Feet): 5 Height (Inches): 9.00 Weight (Pounds): 200 General Appearance: WD/WN, no apparent distress, alert Cardiovascular: normal rate Respiratory/Chest: normal breath sounds, no respiratory distress Abdominal Exam: normal bowel sounds, non tender, soft Extremities: normal range of motion, non-tender Nayeli Box N.P. May 09, 2017 14:32
--- NOTE | 2017-05-09 14:57 | General Progress Note ---
Assessment/Plan Problem List: (1) Hydradenitis ICD Codes: L73.2 - Hidradenitis suppurativa SNOMED: 51850007 (2) Anxiety ICD Codes: F41.9 - Anxiety disorder, unspecified SNOMED: 40535107 (3) Weak ICD Codes: R53.1 - Weakness SNOMED: 58899342 (4) Acute pancreatitis ICD Codes: K85.90 - Acute pancreatitis without necrosis or infection, unspecified SNOMED: 474157704 (5) HTN (hypertension) ICD Codes: I10 - Essential (primary) hypertension SNOMED: 00232123 (6) Alcoholic pancreatitis ICD Codes: K85.20 - Alcohol induced acute pancreatitis without necrosis or infection SNOMED: 154125235 Qualifiers: Qualified Codes: K85.20 - Alcohol induced acute pancreatitis without necrosis or infection (7) UTI (urinary tract infection) ICD Codes: N39.0 - Urinary tract infection, site not specified SNOMED: 96618571, 659702822 Qualifiers: Qualified Codes: N30.01 - Acute cystitis with hematuria (8) Anemia ICD Codes: D64.9 - Anemia, unspecified SNOMED: 838719879 Status: stable, progressing, tolerating diet Assessment/Plan ot pt adv diet pain control abx cbc bmp am dc plan w hh Subjective Constitutional: Reports: weakness Allergies: Coded Allergies: IBUPROFEN (Verified Allergy, Severe, Anaphylaxis, 06/12/16) swollen face and lips NSAIDS (NON-STEROIDAL ANTI-INFLAMMA (Verified Allergy, Severe, Anaphylaxis , 06/12/16) swollen face and lips Uncoded Allergies: NSAIDS include Ibuprofen (Adverse Reaction, Severe, Anaphylaxis, 06/11/16) Swollen face and lip All Systems: reviewed and negative except above Subjective sleepy calm in bed eating ok Objective Last 24 Hour Vital Signs Date Time Temp Pulse Resp B/P (MAP) Pulse Ox O2 Delivery O2 Flow Rate FiO2 05/09/17 11:50 98.2 88 19 111/77 100 05/09/17 10:41 97.0 05/09/17 08:00 97.0 88 18 93/57 100 Room Air 05/09/17 04:00 97.8 78 18 125/71 99 Room Air 05/09/17 00:00 97.5 89 18 115/75 99 Room Air 05/08/17 20:00 97.9 99 18 114/80 99 Room Air 05/08/17 16:00 98.6 100 19 102/72 100 Room Air Intake and Output 05/08/17 05/09/17 19:00 07:00 Intake Total 1480 ml 905 ml Balance 1480 ml 905 ml Intake Oral 480 ml 200 ml IV Total 1000 ml 705 ml # Voids 3 Laboratory Tests 05/09/17 06:15: White Blood Count 4.0L, Red Blood Count 2.70L, Hemoglobin 9.8L, Hematocrit 29.5L , Mean Corpuscular Volume 110H, Mean Corpuscular Hemoglobin 36.2H, Mean Corpuscular Hemoglobin Concent 33.0, Red Cell Distribution Width 17.9H, Platelet Count 224, Mean Platelet Volume 5.0L, Neutrophils (%) (Auto) 39.2L, Lymphocytes (%) (Auto) 41.5, Monocytes (%) (Auto) 15.4H, Eosinophils (%) (Auto) 2.7, Basophils (%) (Auto) 1.3, Sodium Level 134L, Potassium Level 3.7, Chloride Level 99, Carbon Dioxide Level 29, Anion Gap 6, Blood Urea Nitrogen 13, Creatinine 0.7, Estimat Glomerular Filtration Rate > 60, Glucose Level 94, Calcium Level 6.6L, Total Bilirubin 0.9, Aspartate Amino Transf (AST/SGOT) 196H , Alanine Aminotransferase (ALT/SGPT) 99H, Alkaline Phosphatase 179H, Total Protein 7.2, Albumin 2.2L, Globulin 5.0, Albumin/Globulin Ratio 0.4L Height (Feet): 5 Height (Inches): 9.00 Weight (Pounds): 200 General Appearance: alert EENT: normal ENT inspection Neck: normal alignment Cardiovascular: normal peripheral pulses, normal rate, regular rhythm Respiratory/Chest: chest wall non-tender, lungs clear, normal breath sounds Abdomen: normal bowel sounds, non tender, soft Extremities: normal inspection Edema: no edema noted Arm (L), no edema noted Arm (R), no edema noted Leg (L), no edema noted Leg (R), no edema noted Pedal (L), no edema noted Pedal (R), no edema noted Generalized Neurologic: motor weakness Skin: normal pigmentation, warm/dry PIETER GAUTHIER May 09, 2017 14:57
--- NOTE | 2017-05-09 15:17 | Infectious Diseases Prog Note ---
Assessment/Plan Problems: (1) Hidradenitis suppurativa Assessment & Plan: on cefepime and clindamycin empiric coverage, await wound culture, recommend surgical eval as an outpatient , since can't be seen by dr kearney due to recurrent episodes , D/W nurse (2) Cellulitis Assessment & Plan: of the abdominal folds ,already on antibiotics , recommend wound care consult (3) Alcoholic hepatitis Assessment & Plan: recommend GI eval, avoid hepatotoxic meds, screening for hepatitis (4) UTI (urinary tract infection) Assessment & Plan: with E coli , already on cefepime empiric coverage Subjective Constitutional: Reports: no symptoms HEENT: Reports: no symptoms Respiratory: Reports: no symptoms Breasts: Reports: no symptoms Cardiovascular: Reports: no symptoms Gastrointestinal/Abdominal: Reports: no symptoms Genitourinary: Reports: no symptoms Neurologic: Reports: no symptoms Psychiatric: Reports: no symptoms Skin: Reports: no symptoms Endocrine: Reports: no symptoms Hematologic: Reports: no symptoms Musculoskeletal: Reports: no symptoms Allergies: Coded Allergies: IBUPROFEN (Verified Allergy, Severe, Anaphylaxis, 06/12/16) swollen face and lips NSAIDS (NON-STEROIDAL ANTI-INFLAMMA (Verified Allergy, Severe, Anaphylaxis , 06/12/16) swollen face and lips Uncoded Allergies: NSAIDS include Ibuprofen (Adverse Reaction, Severe, Anaphylaxis, 06/11/16) Swollen face and lip Objective Vital Signs Last 24 Hour Vital Signs Date Time Temp Pulse Resp B/P (MAP) Pulse Ox O2 Delivery O2 Flow Rate FiO2 05/09/17 11:50 98.2 88 19 111/77 100 05/09/17 10:41 97.0 05/09/17 08:00 97.0 88 18 93/57 100 Room Air 05/09/17 04:00 97.8 78 18 125/71 99 Room Air 05/09/17 00:00 97.5 89 18 115/75 99 Room Air 05/08/17 20:00 97.9 99 18 114/80 99 Room Air 05/08/17 16:00 98.6 100 19 102/72 100 Room Air Height (Feet): 5 Height (Inches): 9.00 Weight (Pounds): 200 General Appearance: WD/WN, no acute distress HEENT: normocephalic, atraumatic, anicteric, mucous membranes moist, PERRL Respiratory/Chest: chest wall non-tender, lungs clear, normal breath sounds, no respiratory distress, no accessory muscle use Cardiovascular: normal peripheral pulses, normal rate, regular rhythm, no gallop/murmur, no JVD Abdomen: normal bowel sounds, soft, non tender, no organomegaly, non distended , no mass, no scars Extremities: no cyanosis, no clubbing Skin: no rash, no lesions, ulcers Neurologic/Psychiatric: alert, oriented x 3, responsive Microbiology Date/Time Source Procedure Growth Status 05/06/17 15:43 Blood Blood Culture - Preliminary NO GROWTH AFTER 48 HOURS Resulted 05/06/17 15:28 Blood Blood Culture - Preliminary NO GROWTH AFTER 48 HOURS Resulted Laboratory Tests Test 05/09/17 06:15 White Blood Count 4.0 K/UL (4.8-10.8) L Red Blood Count 2.70 M/UL (4.20-5.40) L Hemoglobin 9.8 G/DL (12.0-16.0) L Hematocrit 29.5 % (37.0-47.0) L Mean Corpuscular Volume 110 FL (80-99) H Mean Corpuscular Hemoglobin 36.2 PG (27.0-31.0) H Mean Corpuscular Hemoglobin Concent 33.0 G/DL (32.0-36.0) Red Cell Distribution Width 17.9 % (11.6-14.8) H Platelet Count 224 K/UL (150-450) Mean Platelet Volume 5.0 FL (6.5-10.1) L Neutrophils (%) (Auto) 39.2 % (45.0-75.0) L Lymphocytes (%) (Auto) 41.5 % (20.0-45.0) Monocytes (%) (Auto) 15.4 % (1.0-10.0) H Eosinophils (%) (Auto) 2.7 % (0.0-3.0) Basophils (%) (Auto) 1.3 % (0.0-2.0) Sodium Level 134 MMOL/L (136-145) L Potassium Level 3.7 MMOL/L (3.5-5.1) Chloride Level 99 MMOL/L (98-107) Carbon Dioxide Level 29 MMOL/L (21-32) Anion Gap 6 mmol/L (5-15) Blood Urea Nitrogen 13 mg/dL (7-18) Creatinine 0.7 MG/DL (0.55-1.30) Estimat Glomerular Filtration Rate > 60 mL/min (>60) Glucose Level 94 MG/DL (74-106) Calcium Level 6.6 MG/DL (8.5-10.1) L Total Bilirubin 0.9 MG/DL (0.2-1.0) Aspartate Amino Transf (AST/SGOT) 196 U/L (15-37) H Alanine Aminotransferase (ALT/SGPT) 99 U/L (12-78) H Alkaline Phosphatase 179 U/L (46-116) H Total Protein 7.2 G/DL (6.4-8.2) Albumin 2.2 G/DL (3.4-5.0) L Globulin 5.0 g/dL Albumin/Globulin Ratio 0.4 (1.0-2.7) L Current Medications Medications (Trade) Dose Ordered Sig/Payam Route PRN Reason Start Time Stop Time Status Last Admin Dose Admin Acetaminophen (Tylenol) 650 mg Q4H PRN ORAL FEVER 05/05/17 20:15 06/04/17 20:14 Acetaminophen/ Hydrocodone Bitart ([place] 10/325) 1 ea Q4H PRN ORAL For Moderate Pain 05/05/17 21:15 05/12/17 21:14 Cefepime HCl 2 gm/ Dextrose 55 ml @ 110 mls/hr Q12H IVPB 05/06/17 12:30 05/13/17 12:29 05/09/17 00:34 Clindamycin HCl/ Dextrose 50 ml @ 100 mls/hr Q8HR IV 05/06/17 14:00 05/13/17 13:59 05/09/17 14:25 Dextrose (Dextrose 50%) STAT PRN IV Hypoglycemia 05/05/17 21:15 06/04/17 21:14 Lorazepam (Ativan) 1 mg Q6H PRN ORAL For Anxiety 05/07/17 15:45 05/14/17 15:44 05/09/17 06:41 Mirtazapine (Remeron) 15 mg BEDTIME ORAL 05/06/17 21:00 06/05/17 20:59 05/08/17 21:30 Morphine Sulfate (Morphine Sulfate) 2 mg Q4H PRN IVP SEVERE PAIN 05/05/17 20:15 05/12/17 20:14 05/09/17 14:25 Ondansetron HCl (Zofran) 4 mg Q6H PRN IVP Nausea & Vomiting 05/05/17 21:15 06/04/17 21:14 05/09/17 06:01 Sodium Chloride 1,000 ml @ 100 mls/hr Q10H IV 05/08/17 20:00 06/07/17 19:59 05/09/17 06:01 Brandan Rubin M.D. May 09, 2017 15:17
[2017-05-09 15:52] VITALS: BP 107/66
[2017-05-09] MEDS ORDERED: Cefepime HCl 2 GM in D5W 55 ML IVPB SCH (18:00)
[2017-05-09] MEDS ORDERED: Tubing IV Secondary IV ONE (18:59)
== END 2017-05-09 19:00 | disposition home health service (06) | DRG 438 ==
LOC: EMR 15:10 → 4E 19:02 → EDBEDREQ 20:45
DX: K85.20 Alcohol induced acute pancreatitis without necrosis or infection (principal); E43 Unspecified severe protein-calorie malnutrition; K76.0 Fatty (change of) liver, not elsewhere classified; D50.9 Iron deficiency anemia, unspecified; I10 Essential (primary) hypertension; F10.10 Alcohol abuse, uncomplicated; N39.0 Urinary tract infection, site not specified; L03.311 Cellulitis of abdominal wall; L73.2 Hidradenitis suppurativa; R74.0 Nonspecific elevation of levels of transaminase and lactic acid dehydrogenase [LDH]; F41.9 Anxiety disorder, unspecified; K21.9 Gastro-esophageal reflux disease without esophagitis; G89.4 Chronic pain syndrome; Z68.29 Body mass index [BMI] 29.0-29.9, adult
CPT/HCPCS: 36415; 74177; 80053; 80329; 81003; 81025; 82150; 82248; 83690; 85007; 85025; 85610; 86705; 86803; 87040; 87086; 87181; 87340; 87517; 97803; 99285; J2405; J8499; S0077

== ENCOUNTER 2017-06-07 07:46 | Inpatient (IN) | payer MEDICARE, OTHER ==
[~2017-06-07] VITALS: Ht 175.3 cm; Wt 90.7 kg
[2017-06-07] MEDS ORDERED: Bacitracin Oint UD TOPIC ONE (08:15)
[2017-06-07] MEDS ORDERED: Tetanus/Diptheria/Pertussis Vaccine 0.5ml Syr IM ONE (08:15)
--- NOTE | 2017-06-07 08:18 | Emergency Room Report ---
History of Present Illness General Chief Complaint: Abdominal Pain Source: Patient Present Illness HPI Patient presents with abdominal pain and vomiting. She states the abdominal pain is been present for one week. This worsened over the last 48 hours. Epigastric and radiating towards her back. She states she was recently admitted for pancreatitis. She's vomiting bile at this time without any blood. She was drinking alcohol yesterday. She states it was a large bottle of cider. She has loose stools that are brown and denies melena. She rates the pain in her stomach at 10/10, burning and pressure. Shows a rash on the lower part of her abdomen. She's not certain when her last tetanus vaccination was. The patient also complains about swelling in her legs and ankles. She has had discomfort in her ankles and her knees. She denies any calf pain. She also denies cough and hemoptysis. She was admitted last month with these diagnoses: (1) Chronic pain syndrome (2) Acute alcohol intoxication (3) HTN (hypertension) (4) Acute pancreatitis (5) Alcoholic hepatitis (6) Abdominal pain (7) Anemia (8) Hidradenitis suppurativa (9) UTI (urinary tract infection) (10) Transaminitis Allergies: Coded Allergies: IBUPROFEN (Verified Allergy, Severe, Anaphylaxis, 06/12/16) swollen face and lips NSAIDS (NON-STEROIDAL ANTI-INFLAMMA (Verified Allergy, Severe, Anaphylaxis , 06/12/16) swollen face and lips Uncoded Allergies: NSAIDS include Ibuprofen (Adverse Reaction, Severe, Anaphylaxis, 06/11/16) Swollen face and lip Patient History Past Medical History: see triage record Social History: Reports: alcohol use, Denies: smoking, drug use Social History Narrative Born in [facility], family resides there. She is on the streets Reviewed Nursing Documentation: PMH: Agreed, PSxH: Agreed Nursing Documentation-PMH Hx Cardiac Problems: No Hx Hypertension: Yes - muscle weakness Hx Cancer: No Hx Gastrointestinal Problems: Yes - PANCREATITIS Hx Neurological Problems: No Hx Seizures: No - hidradenitis suppurativa Review of Systems All Other Systems: negative except mentioned in HPI Physical Exam Vital Signs Date Time Temp Pulse Resp B/P (MAP) Pulse Ox O2 Delivery O2 Flow Rate FiO2 06/07/17 08:02 99.0 102 20 123/75 99 Room Air Sp02 EP Interpretation: reviewed, normal General Appearance: no apparent distress, GCS 15, other - Disheveled Head: normocephalic, atraumatic Eyes: bilateral eye normal inspection, bilateral eye PERRL ENT: moist mucus membranes Neck: supple Respiratory: lungs clear, normal breath sounds Cardiovascular #1: regular rate, rhythm Cardiovascular #2: 2+ radial (R) Gastrointestinal: normal inspection, no mass, non-distended, no guarding, no rebound, tenderness, decreased bowel sounds Musculoskeletal: back normal, gait/station normal, normal range of motion Neurologic: alert, oriented x3, other - no asterixis, grossly normal Psychiatric: no suicidal/homicidal ideation, depressed affect Skin: warm/dry, other - Intertrigo lower abdomen Medical Decision Making Diagnostic Impression: Primary Impression: Abdominal pain Qualified Codes: R10.13 - Epigastric pain Additional Impressions: Liver failure Qualified Codes: K72.10 - Chronic hepatic failure without coma Edema Qualified Codes: R60.9 - Edema, unspecified UTI (urinary tract infection) Qualified Codes: N30.00 - Acute cystitis without hematuria Coagulopathy Severe malnutrition AA (alcohol abuse) ER Course Patient presents with, pain vomiting and edema. Differential includes pancreatitis, GERD, gastritis, hepatitis amongst others. Evaluation will be with labs and films. The patient be treated with IV hydration and Zofran with Pepcid. Patient still c/o pain. Treated with morphine. Labs with liver inflammation, normal lipase, normal WBC, slight anemia. Pyuria. Albumen low. Films unremarkable. Patient improved, but still with pain and needs admission for evaluation of edema and follow of treatment of abdominal pain and liver disease. Admit med Dr. Olvera. Laboratory Tests Test 06/07/17 08:20 06/07/17 10:40 White Blood Count 4.3 K/UL (4.8-10.8) L Red Blood Count 2.88 M/UL (4.20-5.40) L Hemoglobin 10.7 G/DL (12.0-16.0) L Hematocrit 33.0 % (37.0-47.0) L Mean Corpuscular Volume 115 FL (80-99) H Mean Corpuscular Hemoglobin 37.3 PG (27.0-31.0) H Mean Corpuscular Hemoglobin Concent 32.5 G/DL (32.0-36.0) Red Cell Distribution Width 18.0 % (11.6-14.8) H Platelet Count 265 K/UL (150-450) Mean Platelet Volume 5.0 FL (6.5-10.1) L Neutrophils (%) (Auto) % (45.0-75.0) Lymphocytes (%) (Auto) % (20.0-45.0) Monocytes (%) (Auto) % (1.0-10.0) Eosinophils (%) (Auto) % (0.0-3.0) Basophils (%) (Auto) % (0.0-2.0) Differential Total Cells Counted 100 Neutrophils % (Manual) 54 % (45-75) Lymphocytes % (Manual) 38 % (20-45) Monocytes % (Manual) 5 % (1-10) Eosinophils % (Manual) 3 % (0-3) Basophils % (Manual) 0 % (0-2) Band Neutrophils 0 % (0-8) Platelet Estimate Adequate Platelet Morphology Normal Prothrombin Time 13.2 SEC (9.30-11.50) H Prothrombin Time INR 1.3 (0.9-1.1) H PTT 32 SEC (23-33) D-Dimer 1.07 mg/L FEU (0.00-0.49) H Sodium Level 136 MMOL/L (136-145) Potassium Level 3.5 MMOL/L (3.5-5.1) Chloride Level 102 MMOL/L (98-107) Carbon Dioxide Level 25 MMOL/L (21-32) Anion Gap 9 mmol/L (5-15) Blood Urea Nitrogen 11 mg/dL (7-18) Creatinine 0.7 MG/DL (0.55-1.30) Estimate Glomerular Filtration Rate > 60 mL/min (>60) Glucose Level 82 MG/DL (74-106) Calcium Level 8.2 MG/DL (8.5-10.1) L Total Bilirubin 0.8 MG/DL (0.2-1.0) Aspartate Amino Transferase (AST) 341 U/L (15-37) H Alanine Aminotransferase (ALT) 150 U/L (12-78) H Alkaline Phosphatase 239 U/L (46-116) H Pro-B-Type Natriuretic Peptide 57 pg/mL (0-125) Total Protein 7.3 G/DL (6.4-8.2) Albumin 2.2 G/DL (3.4-5.0) L Globulin 5.1 g/dL Albumin/Globulin Ratio 0.4 (1.0-2.7) L Lipase 56 U/L (73-393) L Serum Alcohol 49 mg/dL Urine Color Yellow Urine Appearance Cloudy Urine pH 5 (4.5-8.0) Urine Specific [place] 1.025 (1.005-1.035) Urine Protein 1+ (NEGATIVE) H Urine Glucose (UA) Negative (NEGATIVE) Urine Ketones Negative (NEGATIVE) Urine Occult Blood 4+ (NEGATIVE) H Urine Nitrite Positive (NEGATIVE) H Urine Bilirubin 1+ (NEGATIVE) H Urine Ictotest Negative Urine Urobilinogen 4 MG/DL (0.0-1.0) H Urine Leukocyte Esterase 3+ (NEGATIVE) H Urine RBC 10-15 /HPF (0 - 2) H Urine WBC 60-80 /HPF (0 - 2) H Urine Squamous Epithelial Cells Moderate /LPF (NONE/OCC) H Urine Bacteria Moderate /HPF (NONE) H Urine HCG, Qualitative Negative Urine Opiates Screen Positive (NEGATIVE) H Urine Barbiturates Screen Negative (NEGATIVE) Phencyclidine (PCP) Screen Negative (NEGATIVE) Urine Amphetamines Screen Negative (NEGATIVE) Urine Benzodiazepines Screen Positive (NEGATIVE) H Urine Cocaine Screen Negative (NEGATIVE) Urine Marijuana (THC) Screen Negative (NEGATIVE) EKG Diagnostic Results Rate: normal Rhythm: NSR ST Segments: no acute changes Rhythm Strip Diag. Results EP Interpretation: yes Rhythm: NSR, no PVC's, no ectopy Chest X-Ray Diagnostic Results Chest X-Ray Diagnostic Results : Chest X-Ray Ordered: Yes # of Views/Limited/Complete: 1 View Indication: Other EP Interpretation: Yes Interpretation: no consolidation, no effusion, no pneumothorax, no acute cardiopulmonary disease Impression: No acute disease Electronically Signed by: Electronically signed by Antonio Bae MD Other X-Ray Diagnostic Results Other X-Ray Diagnostic Results : # of Views/Limited Vs Complete: 1 View Indication: Pain EP Interpretation: Yes Interpretation: nonspecific bowel gas, no sbo, other - No masses Impression: Other Electronically Signed by: Electronically signed by Antonio Bae MD Last Vital Signs Date Time Temp Pulse Resp B/P (MAP) Pulse Ox O2 Delivery O2 Flow Rate FiO2 06/07/17 20:00 98.2 125 18 101/62 97 06/07/17 12:00 Room Air Status: improved Disposition: ADMITTED INPATIENT Condition: Serious Referrals: NOT CHOSEN IPA/,REFERRING (PCP) Antonio Bae M.D. Jun 07, 2017 08:17
[2017-06-07 08:32] VITALS: BP 127/83
[2017-06-07 08:34] LABS: HEMOGLOBIN 10.7 G/DL (12.0-16.0); MEAN CORPUSCULAR VOLUME 115 FL (80-99); PLATELET COUNT 265 K/UL (150-450); RED BLOOD COUNT 2.88 M/UL (4.20-5.40); WHITE BLOOD COUNT 4.3 K/UL (4.8-10.8)
[2017-06-07 08:44] LABS: INR 1.3 (0.9-1.1)
[2017-06-07 08:50] LABS: ANION GAP 9 mmol/L (5-15); BLOOD UREA NITROGEN 11 mg/dL (7-18); CALCIUM 8.2 MG/DL (8.5-10.1); CARBON DIOXIDE 25 MMOL/L (21-32); CHLORIDE 102 MMOL/L (98-107); CREATININE 0.7 MG/DL (0.55-1.30); POTASSIUM 3.5 MMOL/L (3.5-5.1); SODIUM 136 MMOL/L (136-145)
[2017-06-07 09:00] LABS: ALANINE AMINOTRANSFERASE 150 U/L (12-78); ALBUMIN 2.2 G/DL (3.4-5.0); ALBUMIN/GLOBULIN RATIO 0.4 (1.0-2.7); ALKALINE PHOSPHATASE 239 U/L (46-116); ASPARTATE AMINO TRANSFERASE 341 U/L (15-37); BILIRUBIN,TOTAL 0.8 MG/DL (0.2-1.0)
[2017-06-07] MEDS ORDERED: Phytonadione 10 mg/mL 1ml amp SUBQ ONE (09:15)
[2017-06-07] MEDS ORDERED: Morphine Sulfate 4mg/ml Inj IVP ONE (09:15)
[2017-06-07 10:50] LABS: APPEARANCE,URINE CLOUDY; BILIRUBIN, URINE 1+ (NEGATIVE); GLUCOSE, URINE (UA) NEGATIVE (NEGATIVE); KETONES,URINE NEGATIVE (NEGATIVE); LEUKOCYTE ESTERASE ,URINE 3+ (NEGATIVE); NITRITE,URINE POSITIVE (NEGATIVE); PH,URINE 5 (4.5-8.0); PROTEIN,URINE 1+ (NEGATIVE); UROBILINOGEN,URINE 4 MG/DL (0.0-1.0)
[2017-06-07 11:04] LABS: COLOR,URINE YELLOW
[2017-06-07] MEDS ORDERED: Morphine Sulfate 4mg/ml Inj IVP PRN (11:15)
[2017-06-07 11:28] VITALS: BP 130/85
[2017-06-07] MEDS ORDERED: cefTRIAXone 1 GM in D5W 55 ML IVPB ONE (11:45)
--- NOTE | 2017-06-07 11:45 | Cardiac Electrophysiology PN ---
Subjective Subjective Patient seen in ER, Dictated [id number] ETOH hepatitis severe Bilateral LE edema BNP normal DW ER MD Objective Last 24 Hour Vital Signs Date Time Temp Pulse Resp B/P (MAP) Pulse Ox O2 Delivery O2 Flow Rate FiO2 06/07/17 11:28 98.0 98 16 130/85 100 Room Air 06/07/17 08:32 97.7 99 16 127/83 100 Room Air 06/07/17 08:02 99.0 102 20 123/75 99 Room Air Laboratory Tests Test 06/07/17 08:20 06/07/17 10:40 White Blood Count 4.3 K/UL (4.8-10.8) L Red Blood Count 2.88 M/UL (4.20-5.40) L Hemoglobin 10.7 G/DL (12.0-16.0) L Hematocrit 33.0 % (37.0-47.0) L Mean Corpuscular Volume 115 FL (80-99) H Mean Corpuscular Hemoglobin 37.3 PG (27.0-31.0) H Mean Corpuscular Hemoglobin Concent 32.5 G/DL (32.0-36.0) Red Cell Distribution Width 18.0 % (11.6-14.8) H Platelet Count 265 K/UL (150-450) Mean Platelet Volume 5.0 FL (6.5-10.1) L Neutrophils (%) (Auto) % (45.0-75.0) Lymphocytes (%) (Auto) % (20.0-45.0) Monocytes (%) (Auto) % (1.0-10.0) Eosinophils (%) (Auto) % (0.0-3.0) Basophils (%) (Auto) % (0.0-2.0) Differential Total Cells Counted 100 Neutrophils % (Manual) 54 % (45-75) Lymphocytes % (Manual) 38 % (20-45) Monocytes % (Manual) 5 % (1-10) Eosinophils % (Manual) 3 % (0-3) Basophils % (Manual) 0 % (0-2) Band Neutrophils 0 % (0-8) Platelet Estimate Adequate Platelet Morphology Normal Prothrombin Time 13.2 SEC (9.30-11.50) H Prothromb Time International Ratio 1.3 (0.9-1.1) H Activated Partial Thromboplast Time 32 SEC (23-33) Sodium Level 136 MMOL/L (136-145) Potassium Level 3.5 MMOL/L (3.5-5.1) Chloride Level 102 MMOL/L (98-107) Carbon Dioxide Level 25 MMOL/L (21-32) Anion Gap 9 mmol/L (5-15) Blood Urea Nitrogen 11 mg/dL (7-18) Creatinine 0.7 MG/DL (0.55-1.30) Estimat Glomerular Filtration Rate > 60 mL/min (>60) Glucose Level 82 MG/DL (74-106) Calcium Level 8.2 MG/DL (8.5-10.1) L Total Bilirubin 0.8 MG/DL (0.2-1.0) Aspartate Amino Transf (AST/SGOT) 341 U/L (15-37) H Alanine Aminotransferase (ALT/SGPT) 150 U/L (12-78) H Alkaline Phosphatase 239 U/L (46-116) H Pro-B-Type Natriuretic Peptide 57 pg/mL (0-125) Total Protein 7.3 G/DL (6.4-8.2) Albumin 2.2 G/DL (3.4-5.0) L Globulin 5.1 g/dL Albumin/Globulin Ratio 0.4 (1.0-2.7) L Lipase 56 U/L (73-393) L Serum Alcohol 49 mg/dL Urine Color Yellow Urine Appearance Cloudy Urine pH 5 (4.5-8.0) Urine Specific [place] 1.025 (1.005-1.035) Urine Protein 1+ (NEGATIVE) H Urine Glucose (UA) Negative (NEGATIVE) Urine Ketones Negative (NEGATIVE) Urine Occult Blood 4+ (NEGATIVE) H Urine Nitrite Positive (NEGATIVE) H Urine Bilirubin 1+ (NEGATIVE) H Urine Ictotest Negative Urine Urobilinogen 4 MG/DL (0.0-1.0) H Urine Leukocyte Esterase 3+ (NEGATIVE) H Urine RBC 10-15 /HPF (0 - 2) H Urine WBC 60-80 /HPF (0 - 2) H Urine Squamous Epithelial Cells Moderate /LPF (NONE/OCC) H Urine Bacteria Moderate /HPF (NONE) H Urine HCG, Qualitative Negative Urine Opiates Screen Positive (NEGATIVE) H Urine Barbiturates Screen Negative (NEGATIVE) Phencyclidine (PCP) Screen Negative (NEGATIVE) Urine Amphetamines Screen Negative (NEGATIVE) Urine Benzodiazepines Screen Positive (NEGATIVE) H Urine Cocaine Screen Negative (NEGATIVE) Urine Marijuana (THC) Screen Negative (NEGATIVE) MARYA INIGUEZ Jun 07, 2017 11:45
--- NOTE | 2017-06-07 12:58 | Diagnostic Imaging Report ---
Indication: Abdominal pain Technique: One view of the chest Comparison: 01/07/2017 Findings: Lungs and pleural spaces are clear. Heart size is normal. No significant interim change Impression: No acute process
--- NOTE | 2017-06-07 12:58 | Diagnostic Imaging Report ---
Indication: Abdominal pain Technique: Supine view of the abdomen Comparison: none Findings: Bowel gas pattern is unremarkable. No unusual masses or calcifications Impression: Negative
[2017-06-07] MEDS ORDERED: Nitroglycerin Subl 0.4mg tab SL PRN (13:30)
[2017-06-07] MEDS ORDERED: Miralax 17gm pkt ORAL PRN (13:30)
[2017-06-07] MEDS ORDERED: Mylanta II UD 30ml ORAL PRN (13:30)
[2017-06-07] MEDS ORDERED: D5 1/2NS 1,000 ML IV SCH (13:45)
[2017-06-07] MEDS: Morphine Sulfate 2mg/ml Inj IVP PRN ×2 (14:06→18:16)
[2017-06-07 14:16] VITALS: BP 95/48
--- NOTE | 2017-06-07 14:28 | Cardiology Report ---
APPROVED REPORT EXAM: Two-dimensional and M-mode echocardiogram with Doppler and color Doppler. INDICATION Congestive Heart Failure M-Mode DIMENSIONS IVSd1.1 (0.7-1.1cm)Left Atrium (MM)2.7 (1.6-4.0cm) LVDd3.5 (3.5-5.6cm)Aortic Root3.2 (2.0-3.7cm) PWd1.2 (0.7-1.1cm)Aortic Cusp Exc.1.8 (1.5-2.0cm) LVDs2.0 (2.5-4.0cm) PWs1.7 cm Technically difficult study due to pt's chest pain and sensitivity to scan probe. Normal left ventricular chamber size, systolic function and wall motion. Left ventricular ejection fraction estimated to be 65-70 %. No evidence of left ventricular hypertrophy. No evidence of pericardial effusion. Left and right atrial sizes at upper limits of normal. Right ventricular chamber size is within normal limits. Mild focal aortic valve sclerosis with adequate cusp excursion. Mildly thickened mitral valve leaflets with normal excursion. Mitral annulus and aortic root calcification. Normal pulmonic valve structure. Normal tricuspid valve structure. IVC at normal size with physiologic collapse. A color flow and spectral Doppler study was performed and revealed: Trace mitral regurgitation. Mitral diastolic velocities suggest reduced left ventricular relaxation c/w mild LV diastolic dysfunction (Grade I ). Mild tricuspid regurgitation. Tricuspid systolic velocities suggests peak right ventricular systolic pressure of 44 mmHg, consistent with mild to moderate pulmonary hypertension.
[2017-06-07] MEDS: LORazepam Inj 2mg/ml 1ml IV PRN ×2 (15:31→19:45)
[2017-06-07 16:00] VITALS: BP 144/94
--- NOTE | 2017-06-07 16:47 | GI Initial Consult Note ---
History of Present Illness General Date patient seen: Jun 07, 2017 Time patient seen: 16:39 Reason for Hospitalization: Abdominal Pain Referring physician: PIETER GAUTHIER Reason for Consultation: PANCREATITIS Present Illness HPI Patient presents with abdominal pain and vomiting. She states the abdominal pain is been present for one week. This worsened over the last 48 hours. Epigastric and radiating towards her back. She states she was recently admitted for pancreatitis. She's vomiting bile at this time without any blood. He was drinking alcohol yesterday. She states is a large bottle of cider. She has loose stools that are brown and denies melena. She rates the pain in her stomach at 10/10, burning and pressure. Shows a rash on the lower part of her abdomen. Eyes she's not certain when her last tetanus vaccination was. The patient also complains about swelling in her legs and ankles. She has had discomfort in her ankles and her knees. She denies any calf pain. She also denies cough and hemoptysis. GI consulted for pancreatitis. Pt is known to us from previous admission with history of ETOH abuse and chronic pancreatitis presents to us today with generalized pain, BLE edema. She states her brother had recenntly and she had been drinking bottles of alcohol because of that. Denies any N/V/D at this time. Labs show transaminitis classic ETOH abuse 2:1 ratio, anemia, hypoalbuminemia. She was admitted last month with these diagnoses: (1) Chronic pain syndrome (2) Acute alcohol intoxication (3) HTN (hypertension) (4) Acute pancreatitis (5) Alcoholic hepatitis (6) Abdominal pain (7) Anemia (8) Hidradenitis suppurativa (9) UTI (urinary tract infection) (10) Transaminitis Home Meds Reported Medications No Known Medications* (NKM - No Known Medications*) ., 0 ., 0 Refills 05/05/17 Mirtazapine* (REMERON*) 15 Mg Tablet, 15 MG ORAL BEDTIME, TAB 01/09/17 Hydrocodone Bit/Acetaminophen 5-325* (NORCO 5-325 TABLET*) 1 Each Tablet, 1 TAB ORAL Q4H Y for For Pain, TAB 06/20/16 Med list reviewed/reconciled: Yes Allergies: Coded Allergies: IBUPROFEN (Verified Allergy, Severe, Anaphylaxis, 06/12/16) swollen face and lips NSAIDS (NON-STEROIDAL ANTI-INFLAMMA (Verified Allergy, Severe, Anaphylaxis , 06/12/16) swollen face and lips Uncoded Allergies: NSAIDS include Ibuprofen (Adverse Reaction, Severe, Anaphylaxis, 06/11/16) Swollen face and lip Patient History History Provided By: Patient, Medical Record PMH Narrative Past Medical History: see triage record Social History: Reports: alcohol use, Denies: smoking, drug use Social History Narrative Born in [facility], family resides there. She is on the streets Reviewed Nursing Documentation: PMH: Agreed, PSxH: Agreed Nursing Documentation-PMH Hx Cardiac Problems: No Hx Hypertension: Yes - muscle weakness Hx Cancer: No Hx Gastrointestinal Problems: Yes - PANCREATITIS Hx Neurological Problems: No Hx Seizures: No - hidradenitis suppurativa Social History: Reports: alcohol use Review of Systems All Other Systems: negative except mentioned in HPI Physical Exam Vital Signs Date Time Temp Pulse Resp B/P (MAP) Pulse Ox O2 Delivery O2 Flow Rate FiO2 06/07/17 08:02 99.0 102 20 123/75 99 Room Air Sp02 EP Interpretation: reviewed, normal Labs Laboratory Tests Test 06/07/17 08:20 06/07/17 10:40 White Blood Count 4.3 K/UL (4.8-10.8) L Red Blood Count 2.88 M/UL (4.20-5.40) L Hemoglobin 10.7 G/DL (12.0-16.0) L Hematocrit 33.0 % (37.0-47.0) L Mean Corpuscular Volume 115 FL (80-99) H Mean Corpuscular Hemoglobin 37.3 PG (27.0-31.0) H Mean Corpuscular Hemoglobin Concent 32.5 G/DL (32.0-36.0) Red Cell Distribution Width 18.0 % (11.6-14.8) H Platelet Count 265 K/UL (150-450) Mean Platelet Volume 5.0 FL (6.5-10.1) L Neutrophils (%) (Auto) % (45.0-75.0) Lymphocytes (%) (Auto) % (20.0-45.0) Monocytes (%) (Auto) % (1.0-10.0) Eosinophils (%) (Auto) % (0.0-3.0) Basophils (%) (Auto) % (0.0-2.0) Differential Total Cells Counted 100 Neutrophils % (Manual) 54 % (45-75) Lymphocytes % (Manual) 38 % (20-45) Monocytes % (Manual) 5 % (1-10) Eosinophils % (Manual) 3 % (0-3) Basophils % (Manual) 0 % (0-2) Band Neutrophils 0 % (0-8) Platelet Estimate Adequate Platelet Morphology Normal Prothrombin Time 13.2 SEC (9.30-11.50) H Prothromb Time International Ratio 1.3 (0.9-1.1) H Activated Partial Thromboplast Time 32 SEC (23-33) D-Dimer 1.07 mg/L FEU (0.00-0.49) H Sodium Level 136 MMOL/L (136-145) Potassium Level 3.5 MMOL/L (3.5-5.1) Chloride Level 102 MMOL/L (98-107) Carbon Dioxide Level 25 MMOL/L (21-32) Anion Gap 9 mmol/L (5-15) Blood Urea Nitrogen 11 mg/dL (7-18) Creatinine 0.7 MG/DL (0.55-1.30) Estimat Glomerular Filtration Rate > 60 mL/min (>60) Glucose Level 82 MG/DL (74-106) Calcium Level 8.2 MG/DL (8.5-10.1) L Total Bilirubin 0.8 MG/DL (0.2-1.0) Aspartate Amino Transf (AST/SGOT) 341 U/L (15-37) H Alanine Aminotransferase (ALT/SGPT) 150 U/L (12-78) H Alkaline Phosphatase 239 U/L (46-116) H Pro-B-Type Natriuretic Peptide 57 pg/mL (0-125) Total Protein 7.3 G/DL (6.4-8.2) Albumin 2.2 G/DL (3.4-5.0) L Globulin 5.1 g/dL Albumin/Globulin Ratio 0.4 (1.0-2.7) L Lipase 56 U/L (73-393) L Serum Alcohol 49 mg/dL Urine Color Yellow Urine Appearance Cloudy Urine pH 5 (4.5-8.0) Urine Specific [place] 1.025 (1.005-1.035) Urine Protein 1+ (NEGATIVE) H Urine Glucose (UA) Negative (NEGATIVE) Urine Ketones Negative (NEGATIVE) Urine Occult Blood 4+ (NEGATIVE) H Urine Nitrite Positive (NEGATIVE) H Urine Bilirubin 1+ (NEGATIVE) H Urine Ictotest Negative Urine Urobilinogen 4 MG/DL (0.0-1.0) H Urine Leukocyte Esterase 3+ (NEGATIVE) H Urine RBC 10-15 /HPF (0 - 2) H Urine WBC 60-80 /HPF (0 - 2) H Urine Squamous Epithelial Cells Moderate /LPF (NONE/OCC) H Urine Bacteria Moderate /HPF (NONE) H Urine HCG, Qualitative Negative Urine Opiates Screen Positive (NEGATIVE) H Urine Barbiturates Screen Negative (NEGATIVE) Phencyclidine (PCP) Screen Negative (NEGATIVE) Urine Amphetamines Screen Negative (NEGATIVE) Urine Benzodiazepines Screen Positive (NEGATIVE) H Urine Cocaine Screen Negative (NEGATIVE) Urine Marijuana (THC) Screen Negative (NEGATIVE) General Appearance: well appearing, no apparent distress, alert Head: normocephalic EENT: PERRL/EOMI, normal ENT inspection Neck: supple Respiratory: normal breath sounds, no respiratory distress Cardiovascular: normal rate Gastrointestinal: normal inspection, non tender, soft, normal bowel sounds, non -distended Rectal: deferred Genitourinary: no CVA tenderness Musculoskeletal: normal inspection, back normal Neurologic: normal inspection, alert, oriented x3, responsive Psychiatric: normal inspection, judgement/insight normal, memory normal Skin: normal inspection, normal color, no rash, warm/dry, palpation normal, well hydrated Lymphatic: normal inspection, no adenopathy Other Organ Systems BLE non pitting edema Current Medications Current Medications Medications (Trade) Dose Ordered Sig/Payam Route PRN Reason Start Time Stop Time Status Last Admin Dose Admin Acetaminophen (Tylenol) 650 mg Q4H PRN ORAL fever (temp>100.5F) 06/07/17 13:30 07/07/17 13:29 Al Hydroxide/Mg Hydroxide (Mylanta II) 30 ml Q6H PRN ORAL dyspepsia 06/07/17 13:30 07/07/17 13:29 Dextrose (Dextrose 50%) STAT PRN IV Hypoglycemia 06/07/17 13:30 07/07/17 13:29 Dextrose/Sodium Chloride 1,000 ml @ 75 mls/hr [id number] IV 06/07/17 13:45 07/07/17 13:44 06/07/17 14:05 Diphenhydramine HCl (Benadryl) 25 mg Q6H PRN ORAL Itching/Pruritis 06/07/17 13:30 07/07/17 13:29 06/07/17 15:31 Furosemide (Lasix) 40 mg EVERY 12 HOURS IV 06/07/17 21:00 07/07/17 20:59 Heparin Sodium (Porcine) (Heparin 5000 units/ml) 5,000 units EVERY 12 HOURS SUBQ 06/07/17 21:00 07/07/17 20:59 Lorazepam (Ativan 2mg/ml 1ml) 1 mg Q4H PRN IV agitation 06/07/17 13:30 06/14/17 13:29 06/07/17 15:31 Morphine Sulfate (Morphine Sulfate) 2 mg Q4H PRN IVP severe Pain (Pain Scale 7-10) 06/07/17 13:30 06/14/17 13:29 06/07/17 14:06 Nitroglycerin (Ntg) 0.4 mg Q5M X 3 DOSES PRN SL Prn Chest Pain 06/07/17 13:30 07/07/17 13:29 Ondansetron HCl (Zofran) 4 mg Q6H PRN IVP Nausea & Vomiting 06/07/17 13:30 07/07/17 13:29 06/07/17 15:31 Pantoprazole (Protonix) 40 mg DAILY IV 06/08/17 09:00 07/08/17 08:59 Polyethylene Glycol (Miralax) 17 gm HSPRN PRN ORAL Constipation 06/07/17 13:30 07/07/17 13:29 Promethazine HCl (Phenergan) 25 mg Q8H PRN IV refractory nausea 06/07/17 13:30 07/07/17 13:29 Temazepam (Restoril) 15 mg HSPRN PRN ORAL Insomnia 06/07/17 13:30 06/14/17 13:29 GI: Plan Problems: (1) Abdominal pain (2) Alcoholic pancreatitis (3) Chronic pain syndrome (4) Metabolic acidosis (5) Severe anemia (6) Acute alcohol intoxication (7) Severe malnutrition (8) Alcoholic hepatitis (9) Fatty liver Plan lipase WNL fatty liver hepatitis panel negative on last admission symptomatic treatment at this time adv to regular diet pain mgmt fu venous duplex ppi avoid alcohol fu labs, LFTS, B12/folate Discussed with Dr. Jones. Thank you for this patient referral, we will follow. Nayeli Box N.P. Jun 07, 2017 16:47
--- NOTE | 2017-06-07 17:00 | Consultation ---
DATE OF CONSULTATION: 06/07/2017 CARDIOLOGY CONSULTATION CONSULTING PHYSICIAN: Ritchie Mendez M.D. REFERRING PHYSICIAN: Franky Olvera D.O. REASON FOR CONSULTATION: Lower extremity edema, rule out alcoholic cardiomyopathy. HISTORY OF PRESENT ILLNESS: The patient is a 41-year-old lady with history of hypertension, alcoholic hepatitis, history of pancreatitis, and chronic pain syndrome who was in the hospital about a month ago at the [facility]. The patient came back with abdominal pain of one week's duration. This began to worse over the last 48 hours. The patient was drinking alcohol up to yesterday. The patient also noticed that she has severe bilateral lower extremity edema and now is admitted and a Cardiology consultation was obtained for further evaluation. At the time of my evaluation, the patient is still in the emergency room. PAST MEDICAL HISTORY: 1. Hypertension. 2. History of alcoholic hepatitis. 3. Alcoholic pancreatitis. 4. Hidradenitis suppurativa. 5. History of transaminitis. 6. Chronic pain syndrome. ALLERGIES: She is allergic to ibuprofen and nonsteroidal inflammatory drugs. FAMILY HISTORY: Noncontributory. REVIEW OF SYSTEMS: Review of systems was performed and was negative other than what was mentioned in the history of present illness. PHYSICAL EXAMINATION: VITAL SIGNS: Blood pressure of 130/85, pulse is 102, and respirations . HEAD AND NECK: Shows no JVD. LUNGS: Decreased breath sounds. CARDIOVASCULAR: Regular S1 and S2 with no gallop. Slightly tachycardic. ABDOMEN: Soft. EXTREMITIES: Bilateral lower extremity edema. LABORATORY AND DIAGNOSTIC DATA: Labs show white count of 4.3, hemoglobin of 10.7, hematocrit of 33 and platelet count is 265. Sodium 136, potassium 3.5, BUN of 11, creatinine of 0.7, and glucose of 82. AST is 341, ALT is 150, and alkaline phosphatase is 239. BNP is only 57. ASSESSMENT AND PLAN: 1. Severe bilateral lower extremity edema. There is a possibility of cardiomyopathy due to patient's alcohol use, however, the BNP is only 57. I will start the patient on Lasix 40 mg IV b.i.d. and schedule the patient for lower extremity Doppler as well as echocardiogram. 2. Hypertension. Continue Lasix at this time. 3. Transaminitis, likely due to patient's alcohol use. 4. Hypokalemia, potassium is 3.5. 5. Anemia, likely secondary to myelosuppression secondary to alcohol. 6. Chronic pain syndrome. 7. Polysubstance abuse with alcohol. Her urine opiate is positive and her benzodiazepine is also positive. Thank you very much, Dr. Olvera, for allowing me to participate in the care of this patient. Please do not hesitate to contact me for any questions regarding my evaluation. Ritchie Mendez M.D. DR: YANN JOB#: [id number] CC:
--- NOTE | 2017-06-07 17:25 | Consultation ---
History of Present Illness General Date patient seen: Jun 07, 2017 Chief Complaint: Abdominal Pain Referring physician: PIETER GAUTHIER Reason for Consultation: PANCREATITIS Present Illness HPI Patient is a 41 yo female with past medical history of pancreatitis and hidiradenitis and alcohol use patient admits that she drinks a combination of beer and hard liquor and estimates she drinks plentifully but unable to recall the exact amount, she approximates one bottle of hard liquor when she binges alcohol. She presents with complaint of acute abdominal pain centered in the epigastric region with radiations to herlower back near her flank area. Patient admits that she has been struggling to quit drinking alcohol and admits she has relapsed recently with severe abdominal pain necessitating her to present for medical attention. I was asked to consult on this case from a internal medicine point of view. Allergies: Coded Allergies: IBUPROFEN (Verified Allergy, Severe, Anaphylaxis, 06/12/16) swollen face and lips NSAIDS (NON-STEROIDAL ANTI-INFLAMMA (Verified Allergy, Severe, Anaphylaxis , 06/12/16) swollen face and lips Uncoded Allergies: NSAIDS include Ibuprofen (Adverse Reaction, Severe, Anaphylaxis, 06/11/16) Swollen face and lip Medication History Scheduled Cephalexin* (Keflex*), 500 MG ORAL EVERY 12 HOURS Mirtazapine* (Remeron*), 15 MG ORAL BEDTIME, (Reported) No Known Medications* (NKM - No Known Medications*), 0 ., (Reported) Trimethoprim/Sulfamethoxazole 160/800* (Bactrim Ds Tablet*), 1 TAB ORAL TWICE A DAY Scheduled PRN Acetaminophen* (Tylenol Extra Strength*), 500 MG ORAL Q8H PRN for Prn Headache/ Temp > 101 Hydrocodone Bit/Acetaminophen 5-325* ([place] 5-325 Tablet*), 1 TAB ORAL Q4H PRN for For Pain, (Reported) Hydrocortisone/Aloe Vera 1%* (Hydrocortisone-Aloe 1% Cream*), 1 APPLIC TOPIC Q6H PRN for Itching Patient History Healthcare decision maker Resuscitation status Advanced Directive on File Past Medical/Surgical History Past Medical/Surgical History: (1) Ovarian cyst (2) Ascending paraparesis,r/o spinal cotd compression r/o GBS (3) Ascending parapresis, sensory loss. probably [place] syndrom (4) Vaginal discharge (5) Sepsis (6) Macrocytic anemia (7) Hyponatremia (8) [id number] (9) GERD (gastroesophageal reflux disease) (10) h/o paraparesis r/o polyneuropathy (11) otitis externa (12) lethargy, r/o toxic-methabolic or hepathic encephalopathy (13) Pancytopenia (14) Cellulitis (15) Anemia (16) Acute pancreatitis (17) Anxiety (18) Hydradenitis (19) Weak (20) Generalized weakness (21) Fatty liver (22) Alcoholic hepatitis (23) Chronic pain syndrome (24) Metabolic acidosis (25) Acute alcohol intoxication (26) Alcoholic pancreatitis (27) Severe anemia (28) HTN (hypertension) (29) Coagulopathy (30) Edema (31) Liver failure (32) UTI (urinary tract infection) (33) AA (alcohol abuse) (34) Abdominal pain (35) Severe malnutrition (36) Hidradenitis suppurativa (37) Unknown cause of injury Review of Systems Constitutional: Reports: malaise, weakness Gastrointestinal: Reports: abdominal pain Physical Exam General Appearance: moderate distress Lines, tubes and drains: peripheral HEENT: normocephalic, atraumatic, anicteric, PERRL Neck: non-tender, normal alignment, supple, normal inspection Respiratory/Chest: chest wall non-tender, normal breath sounds, no respiratory distress, no accessory muscle use Breasts: no masses Cardiovascular/Chest: normal peripheral pulses, normal rate, regular rhythm, no JVD Abdomen: abnormal bowel sounds, distended, guarding, rebound, tender Genitourinary/Rectal: normal genital exam, normal rectal exam Extremities: normal range of motion, non-tender, normal inspection, no calf tenderness, normal capillary refill Skin Exam: normal pigmentation, warm/dry 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 normal, no motor/sensory deficits Last 24 Hour Vital Signs Date Time Temp Pulse Resp B/P (MAP) Pulse Ox O2 Delivery O2 Flow Rate FiO2 06/07/17 16:00 98.1 133 20 144/94 94 06/07/17 14:16 97.9 105 20 95/48 100 06/07/17 11:28 98.0 98 16 130/85 100 Room Air 06/07/17 08:32 97.7 99 16 127/83 100 Room Air 06/07/17 08:02 99.0 102 20 123/75 99 Room Air Laboratory Tests Test 06/07/17 08:20 06/07/17 10:40 White Blood Count 4.3 K/UL (4.8-10.8) L Red Blood Count 2.88 M/UL (4.20-5.40) L Hemoglobin 10.7 G/DL (12.0-16.0) L Hematocrit 33.0 % (37.0-47.0) L Mean Corpuscular Volume 115 FL (80-99) H Mean Corpuscular Hemoglobin 37.3 PG (27.0-31.0) H Mean Corpuscular Hemoglobin Concent 32.5 G/DL (32.0-36.0) Red Cell Distribution Width 18.0 % (11.6-14.8) H Platelet Count 265 K/UL (150-450) Mean Platelet Volume 5.0 FL (6.5-10.1) L Neutrophils (%) (Auto) % (45.0-75.0) Lymphocytes (%) (Auto) % (20.0-45.0) Monocytes (%) (Auto) % (1.0-10.0) Eosinophils (%) (Auto) % (0.0-3.0) Basophils (%) (Auto) % (0.0-2.0) Differential Total Cells Counted 100 Neutrophils % (Manual) 54 % (45-75) Lymphocytes % (Manual) 38 % (20-45) Monocytes % (Manual) 5 % (1-10) Eosinophils % (Manual) 3 % (0-3) Basophils % (Manual) 0 % (0-2) Band Neutrophils 0 % (0-8) Platelet Estimate Adequate Platelet Morphology Normal Prothrombin Time 13.2 SEC (9.30-11.50) H Prothromb Time International Ratio 1.3 (0.9-1.1) H Activated Partial Thromboplast Time 32 SEC (23-33) D-Dimer 1.07 mg/L FEU (0.00-0.49) H Sodium Level 136 MMOL/L (136-145) Potassium Level 3.5 MMOL/L (3.5-5.1) Chloride Level 102 MMOL/L (98-107) Carbon Dioxide Level 25 MMOL/L (21-32) Anion Gap 9 mmol/L (5-15) Blood Urea Nitrogen 11 mg/dL (7-18) Creatinine 0.7 MG/DL (0.55-1.30) Estimat Glomerular Filtration Rate > 60 mL/min (>60) Glucose Level 82 MG/DL (74-106) Calcium Level 8.2 MG/DL (8.5-10.1) L Total Bilirubin 0.8 MG/DL (0.2-1.0) Aspartate Amino Transf (AST/SGOT) 341 U/L (15-37) H Alanine Aminotransferase (ALT/SGPT) 150 U/L (12-78) H Alkaline Phosphatase 239 U/L (46-116) H Pro-B-Type Natriuretic Peptide 57 pg/mL (0-125) Total Protein 7.3 G/DL (6.4-8.2) Albumin 2.2 G/DL (3.4-5.0) L Globulin 5.1 g/dL Albumin/Globulin Ratio 0.4 (1.0-2.7) L Lipase 56 U/L (73-393) L Serum Alcohol 49 mg/dL Urine Color Yellow Urine Appearance Cloudy Urine pH 5 (4.5-8.0) Urine Specific [place] 1.025 (1.005-1.035) Urine Protein 1+ (NEGATIVE) H Urine Glucose (UA) Negative (NEGATIVE) Urine Ketones Negative (NEGATIVE) Urine Occult Blood 4+ (NEGATIVE) H Urine Nitrite Positive (NEGATIVE) H Urine Bilirubin 1+ (NEGATIVE) H Urine Ictotest Negative Urine Urobilinogen 4 MG/DL (0.0-1.0) H Urine Leukocyte Esterase 3+ (NEGATIVE) H Urine RBC 10-15 /HPF (0 - 2) H Urine WBC 60-80 /HPF (0 - 2) H Urine Squamous Epithelial Cells Moderate /LPF (NONE/OCC) H Urine Bacteria Moderate /HPF (NONE) H Urine HCG, Qualitative Negative Urine Opiates Screen Positive (NEGATIVE) H Urine Barbiturates Screen Negative (NEGATIVE) Phencyclidine (PCP) Screen Negative (NEGATIVE) Urine Amphetamines Screen Negative (NEGATIVE) Urine Benzodiazepines Screen Positive (NEGATIVE) H Urine Cocaine Screen Negative (NEGATIVE) Urine Marijuana (THC) Screen Negative (NEGATIVE) Height (Feet): 5 Height (Inches): 9.00 Weight (Pounds): 200 Medications Current Medications Medications (Trade) Dose Ordered Sig/Payam Route PRN Reason Start Time Stop Time Status Last Admin Dose Admin Acetaminophen (Tylenol) 650 mg Q4H PRN ORAL fever (temp>100.5F) 06/07/17 13:30 07/07/17 13:29 Al Hydroxide/Mg Hydroxide (Mylanta II) 30 ml Q6H PRN ORAL dyspepsia 06/07/17 13:30 07/07/17 13:29 Dextrose (Dextrose 50%) STAT PRN IV Hypoglycemia 06/07/17 13:30 07/07/17 13:29 Dextrose/Sodium Chloride 1,000 ml @ 75 mls/hr [id number] IV 06/07/17 13:45 07/07/17 13:44 06/07/17 14:05 Diphenhydramine HCl (Benadryl) 25 mg Q6H PRN ORAL Itching/Pruritis 06/07/17 13:30 07/07/17 13:29 06/07/17 15:31 Furosemide (Lasix) 40 mg EVERY 12 HOURS IV 06/07/17 21:00 07/07/17 20:59 Heparin Sodium (Porcine) (Heparin 5000 units/ml) 5,000 units EVERY 12 HOURS SUBQ 06/07/17 21:00 07/07/17 20:59 Lorazepam (Ativan 2mg/ml 1ml) 1 mg Q4H PRN IV agitation 06/07/17 13:30 06/14/17 13:29 06/07/17 15:31 Morphine Sulfate (Morphine Sulfate) 2 mg Q4H PRN IVP severe Pain (Pain Scale 7-10) 06/07/17 13:30 06/14/17 13:29 06/07/17 14:06 Nitroglycerin (Ntg) 0.4 mg Q5M X 3 DOSES PRN SL Prn Chest Pain 06/07/17 13:30 07/07/17 13:29 Ondansetron HCl (Zofran) 4 mg Q6H PRN IVP Nausea & Vomiting 06/07/17 13:30 07/07/17 13:29 06/07/17 15:31 Pantoprazole (Protonix) 40 mg DAILY IV 06/08/17 09:00 07/08/17 08:59 Polyethylene Glycol (Miralax) 17 gm HSPRN PRN ORAL Constipation 06/07/17 13:30 07/07/17 13:29 Promethazine HCl (Phenergan) 25 mg Q8H PRN IV refractory nausea 06/07/17 13:30 07/07/17 13:29 Temazepam (Restoril) 15 mg HSPRN PRN ORAL Insomnia 06/07/17 13:30 06/14/17 13:29 Assessment/Plan Status: stable, progressing Assessment/Plan Acute severe abdominal pain Intractable emesis Urinary tract infection. Elevated liver function test. Hypoalbuminia Edema Hypertension. Gastroesophageal reflux disease PLAN Iv antibiotics or urinary tract infection NPO IV fluid hydration D5W Zofran as needed for emesis Follow up with lipase Gastroenterology requested Pain management DAVID CLARKE Jun 07, 2017 17:25
--- NOTE | 2017-06-07 18:55 | Nephrology Progress Note ---
Assessment/Plan Problem List: (1) Hidradenitis suppurativa (2) HTN (hypertension) (3) Abdominal pain (4) Alcoholic hepatitis (5) Chronic pain syndrome Plan H&P DICTATED # [id number] Subjective Constitutional: Denies: no symptoms, chills, diaphoresis, fever, malaise, weakness, other HEENT: Denies: no symptoms, eye pain, blurred vision, tearing, double vision, ear pain, ear discharge, nose pain, nose congestion, throat pain, throat swelling, mouth pain, mouth swelling, other Genitourinary: Denies: no symptoms, burning, discharge, frequency, flank pain, hematuria, incontinence, pain, urgency, other Neurologic/Psychiatric: Denies: no symptoms, anxiety, depressed, emotional problems, headache, numbness, paresthesia, pre-existing deficit, seizure, tingling, tremors, weakness, other Subjective In bed, having dinner, complains that she is not getting her pain medicine on time. Objective Objective Last 24 Hour Vital Signs Date Time Temp Pulse Resp B/P (MAP) Pulse Ox O2 Delivery O2 Flow Rate FiO2 06/07/17 16:00 98.1 133 20 144/94 94 06/07/17 14:16 97.9 105 20 95/48 100 06/07/17 11:28 98.0 98 16 130/85 100 Room Air 06/07/17 08:32 97.7 99 16 127/83 100 Room Air 06/07/17 08:02 99.0 102 20 123/75 99 Room Air Laboratory Tests 06/07/17 08:20: White Blood Count 4.3L, Red Blood Count 2.88L, Hemoglobin 10.7L, Hematocrit 33.0L, Mean Corpuscular Volume 115H, Mean Corpuscular Hemoglobin 37.3H, Mean Corpuscular Hemoglobin Concent 32.5, Red Cell Distribution Width 18.0H, Platelet Count 265, Mean Platelet Volume 5.0L, Neutrophils (%) (Auto) , Lymphocytes (%) (Auto) , Monocytes (%) (Auto) , Eosinophils (%) (Auto) , Basophils (%) (Auto) , Differential Total Cells Counted 100, Neutrophils % ( Manual) 54, Lymphocytes % (Manual) 38, Monocytes % (Manual) 5, Eosinophils % ( Manual) 3, Basophils % (Manual) 0, Band Neutrophils 0, Platelet Estimate Adequate, Platelet Morphology Normal, Prothrombin Time 13.2H, Prothromb Time International Ratio 1.3H, Activated Partial Thromboplast Time 32, D-Dimer 1.07H , Sodium Level 136, Potassium Level 3.5, Chloride Level 102, Carbon Dioxide Level 25, Anion Gap 9, Blood Urea Nitrogen 11, Creatinine 0.7, Estimat Glomerular Filtration Rate > 60, Glucose Level 82, Calcium Level 8.2L, Total Bilirubin 0.8, Aspartate Amino Transf (AST/SGOT) 341H, Alanine Aminotransferase (ALT/SGPT) 150H, Alkaline Phosphatase 239H, Pro-B-Type Natriuretic Peptide 57, Total Protein 7.3, Albumin 2.2L, Globulin 5.1, Albumin/Globulin Ratio 0.4L, Lipase 56L, Serum Alcohol 49 06/07/17 10:40: Urine Color Yellow, Urine Appearance Cloudy, Urine pH 5, Urine Specific [place] 1.025, Urine Protein 1+H, Urine Glucose (UA) Negative, Urine Ketones Negative, Urine Occult Blood 4+H, Urine Nitrite PositiveH, Urine Bilirubin 1+H, Urine Ictotest Negative, Urine Urobilinogen 4H, Urine Leukocyte Esterase 3+H, Urine RBC 10-15H, Urine WBC 60-80H, Urine Squamous Epithelial Cells ModerateH, Urine Bacteria ModerateH, Urine HCG, Qualitative Negative, Urine Opiates Screen PositiveH, Urine Barbiturates Screen Negative, Phencyclidine (PCP) Screen Negative, Urine Amphetamines Screen Negative, Urine Benzodiazepines Screen PositiveH, Urine Cocaine Screen Negative, Urine Marijuana (THC) Screen Negative Height (Feet): 5 Height (Inches): 9.00 Weight (Pounds): 200 General Appearance: no apparent distress, alert EENT: normal ENT inspection Neck: normal alignment Cardiovascular: normal rate, no JVD Respiratory/Chest: normal breath sounds, no respiratory distress Abdomen: soft, no organomegaly Extremities: calf tenderness, moderate edema Neurologic: alert, oriented x 3, responsive, normal mood/affect Domitila Aviles N.P. Jun 07, 2017 18:55
--- NOTE | 2017-06-07 19:01 | History and Physical Report ---
DATE OF ADMISSION: 06/07/2017 TIME: 12 noon. CONSULTANTS: 1. Bushra Lai M.D. 2. Juan Terrell M.D. 3. Santos Jones M.D. 4. Ritchie Mendez M.D. 5. Stewart Art M.D. 6. Dr. Owens. CHIEF COMPLAINT: Abdominal pain, nausea, vomiting, and edema. BRIEF HISTORY: The patient is a 41-year-old female, who lives at home, presented with increased abdominal pain with nausea and vomiting x1 week, getting worse and leg started getting swollen as well. The patient has some edema. No previous episode. The patient came to [facility], diagnosed the above, admitted to medical floor for further treatment. Currently, calm in the ER gurney. Slight general pain. No complaint. The patient admits to drinking more alcohol recently. PAST MEDICAL HISTORY: History of pancreatitis and hidradenitis. PAST SURGICAL HISTORY: hidradenitis surgery. MEDICATIONS: Lasix, Rocephin, ceftriaxone, morphine, Pepcid and Zofran. ALLERGIES: NSAIDs and ibuprofen. SOCIAL HISTORY: No smoking. Positive alcohol. No intravenous drug abuse. FAMILY HISTORY: Noncontributory. REVIEW OF SYSTEMS: No chest pain. Slight short of breath. Slight nausea. No vomiting. No diarrhea. PHYSICAL EXAMINATION: GENERAL: Calm in bed, oriented x3, no acute distress. VITAL SIGNS: Temperature is 98 degrees, pulse 98, respirations 16, and blood pressure 130/85. CARDIOVASCULAR: No murmur. LUNGS: Distant and clear. ABDOMEN: Bowel sound positive. Slightly tender. No guarding. No rigidity. No rebound. EXTREMITIES: No cyanosis, clubbing, or edema. NEUROLOGIC: The patient moves all extremities slightly weak. LABORATORY AND DIAGNOSTIC DATA: White count 4.3, hemoglobin and hematocrit 10.7/33 and platelets 265. BMP is normal. AST 341, ALT is 150 and alkaline phosphatase 239. Elevated LFT. Albumin 2.2, hypoalbumin. INR is 1.3 and PTT 32. Urinalysis show 4+ occult blood, 1+ bilirubin, and 3+ leukocyte esterase. Urine toxicology positive for benzodiazepines and opiates. ASSESSMENT: 1. Abdominal pain. 2. Nausea and vomiting. 3. Urinary tract infection. 4. Elevated liver function test. 5. Hypoalbumin. 6. Edema. 7. Hypertension. 8. Gastroesophageal reflux disease. PLAN: Continue premedications. Antibiotics per Infectious Disease. Zofran as needed. Pain control. Blood pressure control. OT/PT. Dietary follow. CBC and BMP in the morning. Franky Olvera D.O. DR: EHSAN JOB#: [id number] CC:
[2017-06-07 20:00] VITALS: BP 101/62
[2017-06-07] MEDS ORDERED: Heparin 5000 units/ml inj SUBQ SCH (21:00)
[2017-06-08] MEDS ORDERED: Pantoprazole Inj IV SCH (09:00)
--- NOTE | 2017-06-08 18:01 | Cardiology Report ---
APPROVED REPORT EKG Measurement Heart [id number] Normal sinus rhythm Nonspecific T wave abnormality Abnormal ECG
--- NOTE | 2017-06-08 18:47 | Discharge Summary ---
Discharge Summary Hospital Course Date of Admission Jun 07, 2017 at 08:56 Date of Discharge Jun 07, 2017 at 21:20 Admitting Diagnosis abdominal pain HPI Alyssa Trevino is a 41 year old female who was admitted on Jun 07, 2017 at 08:56 for Abdominal Pain Hospital Course [id number] Discharge Discharge Disposition Patient left AMA Discharge Diagnoses: Rachael Kellogg NP Jun 08, 2017 18:47
--- NOTE | 2017-06-09 09:30 | Discharge Summary 2 SIG ---
DATE OF ADMISSION: 06/07/2017 DATE OF DISCHARGE: 06/07/2017 CONSULTANTS: 1. Juan Terrell M.D. 2. Bushra Lai M.D. 3. Ritchie Mendez M.D. 4. Santos Jones M.D. BRIEF HOSPITAL COURSE: The patient is a 41-year-old female who lives at home presented to ED with increased abdominal pain, nausea, and vomiting for a week and legs have been swelling. She has past medical history significant for pancreatitis and hydradenitis, history of hypertension, and chronic pain syndrome. She had discomfort in her legs and knees. On evaluation at ED, blood work did not show any leukocytosis. Lipase was normal. She was given IV hydration. Chest x-ray showed no acute process. Abdominal x-ray was negative. Diet was advanced. She was started on Lasix for possibility of cardiomyopathy. Potassium was repleted. She had an echocardiogram done with ejection fraction of 65% to 70%. Full treatment was not carried out as the patient left against medical advice. FINAL DIAGNOSES: 1. Abdominal pain. 2. Bilateral lower extremity edema, possible cardiomyopathy. 3. Hypertension. 4. Transaminitis likely due to alcohol abuse. 5. Hypokalemia. 6. Anemia. 7. Chronic pain syndrome. 8. Polysubstance abuse. 9. Fatty liver. 10. Metabolic acidosis. DISPOSITION: The patient left AMA. Franky Olvera D.O. I have been assigned to dictate discharge summary on this account and I was not involved in the patient's management. Rachael Kellogg N.P. DR: ZAKIA JOB#: [id number] CC:
== END 2017-06-07 21:20 | disposition left against medical advice (07) | DRG 432 ==
LOC: EEVIPCON 07:46 → EMR 08:10 → EDBEDREQ 08:48 → 4W 08:56 → EDBEDREQ 09:48
DX: K70.10 Alcoholic hepatitis without ascites (principal); E43 Unspecified severe protein-calorie malnutrition; E87.2 Acidosis; I42.9 Cardiomyopathy, unspecified; N39.0 Urinary tract infection, site not specified; K76.0 Fatty (change of) liver, not elsewhere classified; I10 Essential (primary) hypertension; Z68.29 Body mass index [BMI] 29.0-29.9, adult; G89.4 Chronic pain syndrome; D64.9 Anemia, unspecified; F10.129 Alcohol abuse with intoxication, unspecified; R74.0 Nonspecific elevation of levels of transaminase and lactic acid dehydrogenase [LDH]; E87.6 Hypokalemia; K21.9 Gastro-esophageal reflux disease without esophagitis; L73.2 Hidradenitis suppurativa; Z53.21 Procedure and treatment not carried out due to patient leaving prior to being seen by health care provider; Z23 Encounter for immunization
CPT/HCPCS: 36415; 71045; 74018; 80053; 80307; 80329; 81003; 81025; 82962; 83690; 83880; 85007; 85025; 85379; 85610; 85730; 87086; 87181; 90471; 90715; 93005; 93306; J2405

== ENCOUNTER 2017-07-03 13:10 | Emergency (ER) | payer MEDICARE, OTHER ==
[2017-07-03] MEDS ORDERED: TYLENOL EXTRA500 MG ORAL (17:59)
[2017-07-03] MEDS ORDERED: CEPHALEXIN500 MG ORAL (17:59)
[2017-07-03] MEDS ORDERED: BACTRIM DS TAB1 EAC1 ORAL (17:59)
[2017-07-03] MEDS ORDERED: Acetaminophen 500mg (ES) tab ORAL ONE (18:01)
[2017-07-03] MEDS ORDERED: HYDROCORTISONE-30 GM TOPIC (18:05)
== END 2017-07-03 18:00 | disposition left against medical advice (07) ==
LOC: EMR 14:03
DX: R52 Pain, unspecified (principal); Z53.21 Procedure and treatment not carried out due to patient leaving prior to being seen by health care provider
CPT/HCPCS: 99284

== ENCOUNTER 2017-07-03 15:05 | Emergency (ER) | payer MEDICARE, OTHER ==
[~2017-07-03] VITALS: Ht 175.3 cm; Wt 90.7 kg
[2017-07-03 15:25] VITALS: BP 101/57
--- NOTE | 2017-07-03 15:56 | Emergency Room Report ---
History of Present Illness General Chief Complaint: Edema Present Illness HPI 41 yo female patient presents to ER complaining of bilateral feet swelling and HS under right axilla. Patient reports previously being seen 1 month ago in ER for similar symptoms. Patient reports feet swelling has continued and reports burning sensation in feet. Denies recent injury. Patient reports not followed up with primary care provider for treatment of edema. Patient denies cough, chest pain, SOB, hemoptysis. Patient denies use of medication for relief of symptoms. Patient able to ambulate independently without difficulty. Patient also complains of HS in left axilla. Patient reports not currently taking antibiotics. Patient reports not following up with primary care provider or surgeon for further treatment. Patient denies fever, abdominal pain, GARVIN, loss of vision, dysuria, calf pain. Patient is a poor historian. Allergies: Coded Allergies: IBUPROFEN (Verified Allergy, Severe, Anaphylaxis, 06/12/16) swollen face and lips NSAIDS (NON-STEROIDAL ANTI-INFLAMMA (Verified Allergy, Severe, Anaphylaxis , 06/12/16) swollen face and lips Uncoded Allergies: NSAIDS include Ibuprofen (Adverse Reaction, Severe, Anaphylaxis, 06/11/16) Swollen face and lip Patient History Past Medical History: see triage record Now: No Reviewed Nursing Documentation: PMH: Agreed, PSxH: Agreed Nursing Documentation-PMH Hx Cardiac Problems: No Hx Hypertension: Yes - muscle weakness Hx Cancer: No Hx Gastrointestinal Problems: Yes - PANCREATITIS Hx Neurological Problems: No Hx Seizures: No - hidradenitis suppurativa Review of Systems All Other Systems: negative except mentioned in HPI Physical Exam Vital Signs Date Time Temp Pulse Resp B/P (MAP) Pulse Ox O2 Delivery O2 Flow Rate FiO2 07/03/17 15:11 97.6 104 18 101/57 98 Room Air 97.5 Sp02 EP Interpretation: reviewed, normal General Appearance: well appearing, no apparent distress, alert, GCS 15 Head: normocephalic, atraumatic Eyes: bilateral eye normal inspection, bilateral eye PERRL ENT: hearing grossly normal, normal pharynx, no angioedema, normal voice, TMs + canals normal, uvula midline, moist mucus membranes Neck: full range of motion Respiratory: lungs clear, normal breath sounds, no rhonchi, no respiratory distress, no accessory muscle use, no wheezing, speaking full sentences Cardiovascular #1: regular rate, rhythm Cardiovascular #2: 2+ dorsalis pedis (R), 2+ dorsalis pedis (L) Musculoskeletal: back normal, gait/station normal, normal range of motion, no calf tenderness, Prosper's Sign negative, swelling - bilateral, tender Neurologic: alert, oriented x3, responsive, motor strength/tone normal, sensory intact Psychiatric: mood/affect normal Skin: no rash, other - HS in left axilla, draining pus, edema, mild erythema, TTP Lymphatic: no adenopathy Medical Decision Making PA Attestation Dr. Cervantes is my supervising physician with whom patient management has been discussed with. Diagnostic Impression: Primary Impression: Hidradenitis suppurativa Additional Impression: Swollen feet ER Course Patient presents to ER complaining of swollen feet and HS. DDx include Vitals are WNL, patient is afebrile. Patient previously admitted for HS, lower leg edema, Chronic pain, pancreatitis , alcoholic hepatitis, abdominal pain, anemia, UTI, transaminitis. Ordered labs and pain medication. Patient does not require imaging at this time; no hx of injury; negative Prosper' s sign, denies calf pain, no cough, chest pain, SOB, hemoptysis. ER COURSE: Labs unremarkable, consistent with previous visit. No elevation in WBC. Discuss results with patient. Patient informed she needs to followup with surgeon for treatment of HS. Will provide patient with contact information for HS surgeon. Patient informed she needs to followup with primary care provider and/or cardiology for treatment and monitoring of cardiovascular symptoms including but not limited to bilateral lower foot edema. Informed patient that she is stable for d/c to home at this time. Patient resting comfortably in no acute distress, nontoxic appearing. Patient reports she was expecting to be admitted like the "last times". Patient eloped prior to completing discharge, did not take medications prescribed. ER precautions given, patient instructed to return to ER immediately for any new or worsening of symptoms. Labs Test 07/03/17 16:40 White Blood Count 6.9 K/UL (4.8-10.8) Red Blood Count 2.92 M/UL (4.20-5.40) Hemoglobin 10.8 G/DL (12.0-16.0) Hematocrit 32.6 % (37.0-47.0) Mean Corpuscular Volume 112 FL (80-99) Mean Corpuscular Hemoglobin 37.1 PG (27.0-31.0) Mean Corpuscular Hemoglobin Concent 33.1 G/DL (32.0-36.0) Red Cell Distribution Width 13.8 % (11.6-14.8) Platelet Count 240 K/UL (150-450) Mean Platelet Volume 6.3 FL (6.5-10.1) Neutrophils (%) (Auto) % (45.0-75.0) Lymphocytes (%) (Auto) % (20.0-45.0) Monocytes (%) (Auto) % (1.0-10.0) Eosinophils (%) (Auto) % (0.0-3.0) Basophils (%) (Auto) % (0.0-2.0) Differential Total Cells Counted 100 Neutrophils % (Manual) 61 % (45-75) Lymphocytes % (Manual) 28 % (20-45) Monocytes % (Manual) 9 % (1-10) Eosinophils % (Manual) 1 % (0-3) Basophils % (Manual) 1 % (0-2) Band Neutrophils 0 % (0-8) Platelet Estimate Adequate Platelet Morphology Normal Polychromasia 1+ Hypochromasia 1+ Anisocytosis 1+ Macrocytosis 2+ Sodium Level 138 MMOL/L (136-145) Potassium Level 3.1 MMOL/L (3.5-5.1) Chloride Level 102 MMOL/L (98-107) Carbon Dioxide Level 23 MMOL/L (21-32) Anion Gap 13 mmol/L (5-15) Blood Urea Nitrogen 3 mg/dL (7-18) Creatinine 0.6 MG/DL (0.55-1.30) Estimat Glomerular Filtration Rate > 60 mL/min (>60) Glucose Level 81 MG/DL (74-106) Calcium Level 8.3 MG/DL (8.5-10.1) Total Bilirubin 0.3 MG/DL (0.2-1.0) Aspartate Amino Transf (AST/SGOT) 183 U/L (15-37) Alanine Aminotransferase (ALT/SGPT) 65 U/L (12-78) Alkaline Phosphatase 214 U/L (46-116) C-Reactive Protein, Quantitative 5.3 mg/dL (0.00-0.90) Total Protein 7.4 G/DL (6.4-8.2) Albumin 2.0 G/DL (3.4-5.0) Globulin 5.4 g/dL Albumin/Globulin Ratio 0.4 (1.0-2.7) Last Vital Signs Date Time Temp Pulse Resp B/P (MAP) Pulse Ox O2 Delivery O2 Flow Rate FiO2 07/03/17 15:11 97.6 104 18 101/57 98 Room Air 97.5 Disposition: HOME, SELF-CARE Condition: Stable Scripts Hydrocortisone/Aloe Vera 1%* (HYDROCORTISONE-ALOE 1% CREAM*) Y Cr 1 APPLIC TOPIC Q6H Y for Itching, #30 GM Prov: Anuel Reyna 07/03/17 Cephalexin* (KEFLEX*) 500 Mg Capsule 500 MG ORAL EVERY 12 HOURS for 7 Days, #14 CAP 0 Refills Prov: Anuel Reyna 07/03/17 Trimethoprim/Sulfamethoxazole 160/800* (BACTRIM DS TABLET*) 1 Each Tablet 1 TAB ORAL TWICE A DAY for 7 Days, #14 TAB Prov: Anuel Reyna 07/03/17 Acetaminophen* (TYLENOL EXTRA STRENGTH*) 500 Mg Tablet 500 MG ORAL Q8H Y for Prn Headache/Temp > 101, #30 TAB 0 Refills Prov: nAuel Reyna 07/03/17 Referrals: NOT CHOSEN IPA/,REFERRING (PCP) Patient Instructions: Fatty Liver, Peripheral Edema Additional Instructions: Followup with primary care provider in 3 -5 days. Take medications as directed. Patient questions asked and answered. ER precautions given, patient instructed to return to ER immediately for any new or worsening of symptoms. Anuel Reyna Jul 03, 2017 15:56
[2017-07-03 17:12] LABS: HEMATOCRIT 32.6 % (37.0-47.0); HEMOGLOBIN 10.8 G/DL (12.0-16.0); MEAN CORPUSCULAR VOLUME 112 FL (80-99); PLATELET COUNT 240 K/UL (150-450); RED BLOOD COUNT 2.92 M/UL (4.20-5.40); RED CELL DISTRIBUTION WIDTH 13.8 % (11.6-14.8); WHITE BLOOD COUNT 6.9 K/UL (4.8-10.8)
[2017-07-03 17:25] LABS: ANION GAP 13 mmol/L (5-15); BLOOD UREA NITROGEN 3 mg/dL (7-18); CALCIUM 8.3 MG/DL (8.5-10.1); CARBON DIOXIDE 23 MMOL/L (21-32); CHLORIDE 102 MMOL/L (98-107); CREATININE 0.6 MG/DL (0.55-1.30); POTASSIUM 3.1 MMOL/L (3.5-5.1); SODIUM 138 MMOL/L (136-145)
[2017-07-03 17:33] LABS: ALANINE AMINOTRANSFERASE 65 U/L (12-78); ALBUMIN/GLOBULIN RATIO 0.4 (1.0-2.7); ALKALINE PHOSPHATASE 214 U/L (46-116); ASPARTATE AMINO TRANSFERASE 183 U/L (15-37); BILIRUBIN,TOTAL 0.3 MG/DL (0.2-1.0)
[2017-07-03] MEDS ORDERED: BACTRIM DS TAB1 EAC1 ORAL (17:59)
[2017-07-03] MEDS ORDERED: CEPHALEXIN500 MG ORAL (17:59)
[2017-07-03] MEDS ORDERED: TYLENOL EXTRA500 MG ORAL (17:59)
[2017-07-03] MEDS: Acetaminophen 500mg (ES) tab ORAL ONE ×2 (18:03→18:04)
[2017-07-03] MEDS ORDERED: HYDROCORTISONE-30 GM TOPIC (18:05)
[2017-07-03 18:10] VITALS: BP 105/60
== END 2017-07-03 18:10 | disposition home or self-care (01) ==
LOC: EMR 15:30
DX: L73.2 Hidradenitis suppurativa (principal); M79.89 Other specified soft tissue disorders; I10 Essential (primary) hypertension; Z88.6 Allergy status to analgesic agent
CPT/HCPCS: 36415; 80053; 85007; 85025; 86140; 99284